=== PATIENT | male | born 1970 | race Caucasian/White ===

== ENCOUNTER 2019-09-10 11:31 | Observation (INO) | payer MEDICAID, SELFPAY ==
[2019-09-10 11:35] VITALS: BP 142/79; PULSE 88; RESP 16; TEMP 36.4; O2SAT 97
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
[2019-09-10 12:22] LABS: Abs Immature Grans 0.03 10^3/uL (0.0-0.06); Absolute Basophil Count 0.03 10^3/uL (0.0-0.2); Absolute Eosinophil Count 0.06 10^3/uL (0.0-0.7); Absolute Lymphocyte Count 1.26 10^3/uL (1.2-3.4); Absolute Neutrophil Count 8.49 10^3/uL (1.2-6.7); Basophils % 0.3; Eosinophils % 0.6; HCT 41.5 % (40.0-50.0); HGB 14.2 g/dL (13.5-17.5); Immature Grans % 0.3; MCH 33.2 pg (27.0-33.0); MCHC 34.2 % (32.0-36.0); MPV 9.1 fL (8.0-11.0); Monocytes % 5.7; Neutrophils % 81.1; Nucleated RBC 0 %; Platelet Count 223 10^3/uL (130-400); RBC 4.28 10^6/uL (4.36-5.78); RDW 12.1 % (11.8-14.1); RDW-SD 42.6 fL; WBC 10.47 10^3/uL (4.4-10.8)
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
[2019-09-10 12:53] LABS: ALT 59 U/L (16-63); AST 104 U/L (15-37); Albumin 3.9 g/dL (3.4-5.0); Alkaline Phosphatase 67 U/L (46-116); Anion Gap 10.8 mmol/L (3-11); BUN 15 mg/dL (7-18); Bilirubin, Total 0.9 mg/dL (0.2-1.0); CO2 26.2 mmol/L (21.0-32.0); CREATININE 0.78 mg/dL (0.70-1.30); Chloride 103 mmol/L (98-107); Glucose 105 mg/dL (74-106); Potassium 3.6 mmol/L (3.5-5.1); Sodium 140 mmol/L (136-145); TSH (W/Ref FT4) 1.74 uIU/mL (0.36-3.74); Total Protein 7.3 g/dL (6.4-8.2)
[2019-09-10 12:59] LABS: ETHANOL BLOOD < 3.0 mg/dL (<3)
[2019-09-10 13:01] LABS: Salicylate < 2.8 mg/dL (2.8-20.0)
[2019-09-10 13:19] LABS: Acetaminophen < 2 ug/mL (10-30)
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
[2019-09-10] MEDS: LORazepam 1 MG TAB PO ×2 (14:52→16:13)
[2019-09-10 15:28] VITALS: BP 129/86; PULSE 90; RESP 16; TEMP 37; O2SAT 96
[2019-09-10 15:39] VITALS: BP 129/86; PULSE 90; RESP 16; TEMP 37; O2SAT 96
--- NOTE | 2019-09-10 16:11 | PHA.REVIEW ---
Pharmacy Admission Review - Admission Clinical Review Paranoid (Acute) Psychosis (Acute) egg Allergy (Unknown, Unverified 09/10/19 11:39) VOMITING Height 5 ft 8 in Weight 108.862 kg - Renal Dosing Renal Dosing: BUN 15 mg/dL (7-18) 09/10/19 12:07 Creatinine 0.78 mg/dL (0.70-1.30) 09/10/19 12:07 Medications needing adjustments: Reviewed (CrCl ~138.6 mL/min using adjusted BW, current meds okay) - Anticoagulation Anticoagulation: Hgb 14.2 g/dL (13.5-17.5) 09/10/19 12:07 Hct 41.5 % (40.0-50.0) 09/10/19 12:07 Plt Count 223 10^3/uL (130-400) 09/10/19 12:07 Creatinine 0.78 mg/dL (0.70-1.30) 09/10/19 12:07 DVT Prohphylaxis: N/A Therapeutic Anticoagulation: N/A - Opiate Usage Evaluate Pain Scale/Pains Meds: N/A - Relevant Labs Sodium 140 mmol/L (136-145) 09/10/19 12:07 Potassium 3.6 mmol/L (3.5-5.1) 09/10/19 12:07 Chloride 103 mmol/L (98-107) 09/10/19 12:07 Electrolytes, C-Reactive P, ESR: Reviewed (AST 104) - DM Control DM Control: Glucose 105 mg/dL (74-106) 09/10/19 12:07 Insulin Dosing: N/A (No DM in medical history) - Heart Failure/KS EF%, RAMANDEEP's, B-Blockers, Diuretics: N/A - BP Control BP Control: Blood Pressure 129/86 Blood Pressure 129/86 Blood Pressure 142/79 If elevated: N/A (BP good, was elevated upon admission has normalized) - Qtc Review If Elevated: N/A (No EKG labs) - IV to PO Switch IV Medications: Reviewed - Home Meds Home Med List reviewed: Reviewed (No home meds listed in external med history, provider mentioned trying to get updated med list) Relevent Home Meds Not ordered & why?: Methylphenidate (no results on VPMS in last year, order was DC'd), ziprasidone (DC'd until verified that patient is still taking at home per MD) - Current meds Current Medication Order Review: Reviewed - Comments Comments/Follow Ups: Patient has been medically cleared and is awaiting a bed at an inpatient psychiatric care. Monitor AST and any med changes.
[2019-09-10] MEDS: Acetaminophen 325 MG TAB 650 MG PO (16:13)
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
[2019-09-10 21:41] VITALS: BP 135/77; PULSE 88; RESP 20; TEMP 36.5; O2SAT 96
[2019-09-10] MEDS: traZODone 50 MG TAB 150 MG PO (23:15)
[2019-09-11] MEDS: Acetaminophen 325 MG TAB 650 MG PO ×2 (05:19→09:22)
[2019-09-11 08:19] LABS: COVID-19 RT-PCR UVMMC Result Negative (Negative)
[2019-09-11 08:27] VITALS: BP 134/88; PULSE 86; RESP 20; TEMP 36.9; O2SAT 97
[2019-09-11] MEDS: LORazepam 1 MG TAB PO ×2 (11:05→13:04)
[2019-09-11] MEDS: Ketorolac 10 MG TAB PO (11:05)
--- NOTE | 2019-09-11 11:46 | MHPN_ITS ---
Date of service: 09/11/19 Time of Service: 11:46 Mental Health Crisis Note Presenting Issue How did you arrive at the ED and why did you come: [place] went to the hospital voluntarily via police. Precipitating Factors [place] denied SI and HI. He is presenting as having some delusions and paranoia focusing on the [employer] gang and having a one hundred thousand dollar debt to have him killed. Disposition BEHAVIOR: [place] is not cooperating with the necessary medical clearance needed by not giving a sample of his urine. He is loud and very open about what he believes to be going on and is adamant that he is not at [facility] for mental health reasons. He is not seeking a voluntary admission for psychiatric help My mental health is fine. He does seem to be drug seeking as he is asking for medications that he feels he needs but is not going to get at the hospital. EYE CONTACT: Eye contact is good. MOOD: Montana's mood appears suspicious and anxious. AFFECT: Sauls affect appeared worried and anxious. APPETITE: [place] reported that he is eating normally. SLEEP(trouble falling/staying asleep: [place] reported no issues with sleep. Plan This clinician called his [employer] with [place]'s verbal permission. Spoke with O by the name of Jose Enrique Gleason and explained the situation and that he does not meet criteria for an EE. Jose Enrique had been trying ot connect with [place] without success so asked to be connected to him. I gave Jose Enrique 2 different transitional care liaison's numbers that he could connect with at [facility] and gave [facility] Shear Operator Automatic, Payal Ponce a heads up. Payal called later said [place] was being discharged.
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
--- NOTE | 2019-09-11 13:15 | CMDISCH_ITS ---
- If Service Date Differs Date of service: 09/11/19 Time of Service: 13:15 LACE Index Scoring Tool - Questions: Length of Stay (in days): 1 Acuity (Admit via E.D.?): Yes Care Management Discharge Discharge Plan: [place] is discharged back to the [facility] where he has been staying. He will follow up with his PCP and plan of care as directed. [place] is transported to the [facility] via RCT coordinated by CM. Patient/Family Education Needs: Nursing will review discharge instructions with [place] re medications and follow up plan. Services Needed at Discharge: Transportation (RCT)
== END 2019-09-11 13:26 | disposition home or self-care (01) ==
LOC: ER 15:08 → MS 15:35
PROVIDERS: Admitting Provider Family Medicine; Emergency Provider Emergency Medicine; PCP Family Medicine; Visit Provider Family Medicine
DX: F22 Delusional disorders (principal); F29 Unspecified psychosis not due to a substance or known physiological condition; Z11.59 Encounter for screening for other viral diseases; F17.210 Nicotine dependence, cigarettes, uncomplicated
CPT/HCPCS: 36415; 80053; 99217; 99222; 99285; U0003; 80320; 80329; 84443; 85025; 99219; 99284; G0378

== ENCOUNTER 2019-09-12 22:12 | Emergency (ER) | payer MEDICAID, SELFPAY ==
[2019-09-12 22:17] VITALS: BP 137/89; PULSE 97; RESP 20; TEMP 35.4; O2SAT 98
--- NOTE | 2019-09-12 22:33 | W.ED.GENAD ---
Discharge Plan Disposition Patient Disposition: HOME Condition: Stable Discharge Details Chief Complaint: PsychEval Clinical Impression: Paranoid Primary Care Provider: Soco Dickinson ED Provider: Brian Diehl Home Meds and New Rx's Prescriptions: Continued ALBUTEROL SULFATE HFA 8.5 GM HFA.AER.AD 2 puff Inhalation QID Qty: 3 RF: 4 methylphenidate HCl 20 MG tablet 40 mg PO BID RF: 0 (DME) Aerochamber Plus Flow-Vu,S Msk 1 EACH spacer 1 ea Miscellaneous QID RF: 0 ziprasidone HCl [Geodon] 40 mg Capsule 40 mg PO HS RF: 0 trazodone 150 mg Tablet 150 mg PO HS RF: 0 Discharge Instructions Additional Instructions: follow up with [facility] if you have thoughts of self harm or harming others contact [facility] or return to the emergency department Medical Decision Making 49 yo male with unclear psychiatric diagnosis comes in with continued thoughts that people are out to harm him. He was admitted to [facility] as voluntary psych for these reasons and then decided the next day he did not want to go to a psychiatric facility, had no si/hi and no indications for EE so left. He comes in tonight with continued thoughts that people are trying to harm him and thought people were outside his dwelling with guns. He arrives with [employer] with stable gait, no deficits on motor or sensation exam and clear speech caox4 no SI/HI. Had normal lab work just 2 days ago and normal exam other than the paranoia here, is medically cleared to see mental health, no findings on exam or history to suggest underlying medical process such as infectious or endocrine pathology as the cause of his symptoms pt declining to go to psychiatric facility after speaking with Tabitha Mejias from mental health and doesn't meet criteria to be EE'd no SI/HI. Will d/c and will f/u with mental health Differential Diagnosis Differential Diagnosis: schizophrenia, paranoid HPI General Mode of arrival: ambulatory. Date/Time Provider Initiated Documentation: 09/12/19 22:18. Limitations to Documentation: no limitations. Information obtained by: patient. History of Present Illness 49 year old M presents to the emergency department with the chief complaint of people are out to get me , described as moderate, and it has been constant. No relieving factors improve symptom(s), No exacerbating factors reported . Patient did receive the following treatments prior to arrival, none Related Data Home Medications Medication Instructions Recorded Confirmed Aerochamber Plus Flow-Vu,S Msk 09/12/12 Albuterol Sulfate Hfa 2 puff INHALATION QID #3 ea 09/12/12 09/10/19 methylphenidate HCl 40 mg PO BID 09/12/12 09/10/19 trazodone 150 mg PO HS 09/10/19 09/10/19 ziprasidone HCl [Geodon] 40 mg PO HS 09/10/19 09/10/19 Allergies Allergy/AdvReac Type Severity Reaction Status Date / Time egg Allergy Unknown VOMITING Unverified 09/10/19 11:39 General Stated Complaint: PsychEval CHUYITA: 2 Review of Systems All systems reviewed & are unremarkable except as noted in HPI and below Constitutional Constitutional: Denies chills, Denies fever(s) and Denies weakness Cardiovascular Cardiovascular: Denies chest pain and Denies dyspnea Respiratory Respiratory: Denies cough and Denies dyspnea Gastrointestinal Gastrointestinal: Denies abdominal pain, Denies nausea and Denies vomiting Musculoskeletal Musculoskeletal: Denies joint swelling Neurologic Neurologic: Denies weakness Psychiatric Psychiatric: Denies depression PFS Medical History Abscess of left hand (Resolved) Hepatitis C (Chronic) IV drug abuse (Chronic) Social History Smoking/Tobacco Use Status: Current every day Tobacco Type: cigarettes Alcohol Intake: never Substance use type: does not use Do you feel safe at home: No Exam Const General: no acute distress Orientation: alert HENMT Head: normal to inspection Ears: external ears normal General nose exam: external nose normal Mouth: moist mucous membranes Eyes General: appearance normal, both eyes and all related structures Neck Neck: normal visual inspection Resp Effort & Inspection: normal respiratory effort and able to speak in complete sentences Cardio Rate: regular rate Skin General skin exam: no rashes or lesions noted Neuro General: patient alert and patient oriented x3 Extrem General: normal to inspection Psych Affect: normal affect Course Vital Signs Vital signs: Vital Signs Temperature 35.4 C L 09/12/19 22:17 Pulse 97 H 09/12/19 22:17 Respiratory Rate 20 09/12/19 22:17 Blood Pressure 137/89 09/12/19 22:17 Pulse Oximetry 98 09/12/19 22:17 Temperature 35.4 C L 09/12/19 22:17 Temperature Source Temporal Artery Scan 09/12/19 22:17 Pulse 97 H 09/12/19 22:17 Respiratory Rate 20 09/12/19 22:17 Respiratory Effort 09/12/19 22:19 Blood Pressure 137/89 09/12/19 22:17 Pulse Oximetry 98 09/12/19 22:17 Oxygen Delivery Method Room Air 09/12/19 22:17 Oxygen Flow Rate 0 09/12/19 22:17
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
== END 2019-09-12 22:55 | disposition home or self-care (01) ==
PROVIDERS: Emergency Provider Emergency Medicine; PCP Nurse Practitioner
DX: F22 Delusional disorders (principal)
CPT/HCPCS: 99285; 99283

== ENCOUNTER 2019-09-14 04:30 | Inpatient (IN) | payer MEDICAID, SELFPAY ==
[2019-09-14 04:28] VITALS: BP 155/108; PULSE 82; RESP 16; TEMP 36.5; O2SAT 98
--- NOTE | 2019-09-14 04:30 | RT.EKG_ITS ---
APPROVED REPORT Exam: Resting ECG Patient Location: E HR:77 bpm ECG Measurements Heart Rate 77 AXIS NM 163 P 49 QRSd 93 QRS 92 QT 382 T 24 QTc 433 Conclusion Sinus rhythm...normal P axis, V-rate 60- 99
--- NOTE | 2019-09-14 04:34 | W.ED.GENAD ---
Discharge Plan Disposition Patient Disposition: OTHER Condition: Stable Discharge Details Chief Complaint: PsychEval Clinical Impression: Paranoid Primary Care Provider: Soco Dickinson ED Provider: Yasmany Pemberton Home Meds and New Rx's Prescriptions: No Action ALBUTEROL SULFATE HFA 8.5 GM HFA.AER.AD 2 puff Inhalation QID Qty: 3 RF: 4 methylphenidate HCl 20 MG tablet 40 mg PO BID RF: 0 (DME) Aerochamber Plus Flow-Vu,S Msk 1 EACH spacer 1 ea Miscellaneous QID RF: 0 ziprasidone HCl [Geodon] 40 mg Capsule 40 mg PO HS RF: 0 trazodone 150 mg Tablet 150 mg PO HS RF: 0 bupropion HCl [Wellbutrin XL] 300 mg Tablet Extended Release 24 Hr 300 mg PO QAM RF: 0 Medical Decision Making <Brian Diehl MD - Last Filed: 09/14/19 07:22> 49 yo male with unknown psychiatric diagnosis though has been on geodon and methylphenidate, [facility], comes in with ems after he woke up in a field in [place] and is unsure how he got there. He states he is messed up in the head and would like to go to a psychiatric facility. HAs been seen twice in the ED in the past week with thoughts that people are trying to kill him despite police confirming no people have been found in the places he said they have been, one time stating the people were right outside his house even though they weren't. He left before being placed as he decided he didn't want to go to a psych facility and had no si/hi and otherwise normal mental exam so could not EE him. He has no idea how he got in the field in [place], lives in [facility]. Denies alcohol or drug use. He is currently caox4 with normal gait, no focal motor or sensation deficits on exam and clear speech with no si/hi, still does think there are people trying to kill him and he has a bounty on his head. I suspect this is psychiatric driven, will consult with mental health. Has no signs of trauma and no pain anywhere so do not feel imaging indicated. No findings on history or exam to suggest underlying medical process such as endocrine or infectious etiology for his symptoms pt remains stable, sleeping here with no agitation. will be signed out pending responses from psych facilities Differential Diagnosis Differential Diagnosis: schizophrenia, drug use, psychosis Medical Records Medical records reviewed: Yes I reviewed the patient's medical records. Lab Data Lab results reviewed: Yes I reviewed the patient's lab results. ECG Data Attestation: I personally reviewed and interpreted this ECG (s) as follows: Prior ECG tracings: not available for review Interpretation: sinus rhythm, rate of 77m or 163, qtc [address] t wave ischemic findings <BECKIE Johnson - Last Filed: 09/14/19 13:09> This is a 49-year-old gentleman who presented early this morning for evaluation. Apparently he has been in our ER 3 times in 1 week. Initially she was requesting voluntary psychiatric placement however subsequently left because he did not want to wait for placement. He was seen again and did not meet EE commitment and was going to follow-up as an outpatient. Apparently woke up in a field very early this morning, had no recollection of how or why he was there, subsequently called EMS. He has been worked up medically by Dr. Diehl prior to my assuming care at shift change. Patient was given his routine medications and upon my shift starting patient was resting-sleeping comfortably. His laboratory values are unremarkable for obvious emergent process. Urinalysis has not been obtained thus far. COVID swab pending however he did have a COVID swab that was negative just 4 days ago during his recent admission. I was able to speak with our care management team as well as mental health team who plans on screening him in the next half an hour. Mental health evaluation was completed, please see their note. They are going to contact his tax revenue officer for additional information. In the meantime I was able to evaluate the patient. He is resting comfortably in room 5. He is awake, alert, oriented x3. Head normocephalic, moist mucous membranes, heart regular rate and rhythm, lungs clear to auscultation, abdomen soft, nontender. No gross neurological deficits. He denies any suicidal or homicidal ideations whatsoever. He is calm, cooperative. He does tell me that he does not want to stay in the hospital and does not want a voluntary psychiatric placement. I was able to speak with our care management team once again, his tax revenue officer was contacted, and they support his psychiatric admission. I will discuss the case with our hospitalist team for admission to our facility will a psychiatric placement is found. At this time he has still been unwilling to provide a urine sample. I spoke with Dr. Bañuelos who is agreeable to admission but given he woke up in a field, we do not know the reason, she would prefer that we obtain a CT of his head, a CPK, and have a urinalysis with a tox screen obtained. I have spoken with the patient and stressed the importance of patient providing a urine sample. CPK 499. Urinalysis is unremarkable. Urine tox positive for THC. Patient eating and drinking without difficulty. Noted ambulating steadily to the restroom multiple times. CT head read by virtual radiology as no acute intracranial findings. Now that the additional laboratory values and CT imaging have been completed, I discussed the case once again with Dr. Bañuelos to finalize admission. HPI <Brian Diehl MD - Last Filed: 09/14/19 07:22> General Mode of arrival: EMS. Date/Time Provider Initiated Documentation: 09/14/19 04:31. Information obtained by: patient. History of Present Illness 49 year old M presents to the emergency department with the chief complaint of woke up in a field unsure how he got there, and it has been constant. No relieving factors improve symptom(s), No exacerbating factors reported . Patient did receive the following treatments prior to arrival, none Related Data Home Medications Medication Instructions Recorded Confirmed Aerochamber Plus Flow-Vu,S Msk 09/12/12 09/14/19 Albuterol Sulfate Hfa 2 puff INHALATION QID #3 ea 09/12/12 09/14/19 methylphenidate HCl 40 mg PO BID 09/12/12 09/14/19 trazodone 150 mg PO HS 09/10/19 09/14/19 ziprasidone HCl [Geodon] 40 mg PO HS 09/10/19 09/14/19 bupropion HCl [Wellbutrin XL] 300 mg PO QAM 09/14/19 09/14/19 Allergies Allergy/AdvReac Type Severity Reaction Status Date / Time egg Allergy Unknown VOMITING Unverified 09/13/19 15:06 General CHUYITA: 2 Review of Systems <Brian Diehl MD - Last Filed: 09/14/19 07:22> All systems reviewed & are unremarkable except as noted in HPI and below Constitutional Constitutional: Denies chills, Denies fever(s) and Denies weakness Cardiovascular Cardiovascular: Denies chest pain and Denies dyspnea Respiratory Respiratory: Denies cough and Denies dyspnea Gastrointestinal Gastrointestinal: Denies abdominal pain, Denies nausea and Denies vomiting Musculoskeletal Musculoskeletal: Denies joint swelling Neurologic Neurologic: Denies weakness Psychiatric Psychiatric: Denies depression PFSH <Brian Diehl MD - Last Filed: 09/14/19 07:22> Medical History (Updated 09/14/19 @ 07:22 by Brian Diehl MD) Abscess of left hand (Resolved) Anxiety (Chronic) Bipolar disorder (Acute) Depression (Chronic) Hepatitis C (Chronic) IV drug abuse (Chronic) Schizo-affective psychosis (Acute) Social History Smoking/Tobacco Use Status: Current every day Tobacco Type: cigarettes Alcohol Intake: never Substance use type: does not use Do you feel safe at home: No Exam <Brian Diehl MD - Last Filed: 09/14/19 07:22> Const General: no acute distress Orientation: alert HENMT Head: normal to inspection Ears: external ears normal General nose exam: external nose normal Mouth: moist mucous membranes Eyes General: appearance normal, both eyes and all related structures Neck Neck: normal visual inspection Resp Effort & Inspection: normal respiratory effort and able to speak in complete sentences Cardio Rate: regular rate Skin General skin exam: no rashes or lesions noted Neuro General: patient alert and patient oriented x3 Extrem General: normal to inspection Sign Out <Brian Diehl MD - Last Filed: 09/14/19 07:22> Sign Out Data: Sign Out Comment: psychiatric placement, voluntary, paranoid Last updated by Brian Diehl MD at 09/14/19 07:21
[2019-09-14 04:56] LABS: Abs Immature Grans 0.04 10^3/uL (0.0-0.06); Absolute Basophil Count 0.03 10^3/uL (0.0-0.2); Absolute Eosinophil Count 0.28 10^3/uL (0.0-0.7); Absolute Lymphocyte Count 1.45 10^3/uL (1.2-3.4); Absolute Monocyte Count 0.58 10^3/uL (0.1-0.8); Basophils % 0.3; Eosinophils % 2.6; HCT 46.7 % (40.0-50.0); HGB 15.4 g/dL (13.5-17.5); Immature Grans % 0.4; Lymphocytes % 13.4; MCH 33.1 pg (27.0-33.0); MCV 100.4 fL (80-95); MPV 8.9 fL (8.0-11.0); Monocytes % 5.4; Neutrophils % 77.9; Nucleated RBC 0 %; Platelet Count 211 10^3/uL (130-400); RBC 4.65 10^6/uL (4.36-5.78); RDW 12.2 % (11.8-14.1); RDW-SD 44.8 fL; WBC 10.82 10^3/uL (4.4-10.8)
[2019-09-14 04:57] LABS: Absolute Neutrophil Count 8.43 10^3/uL (1.2-6.7)
[2019-09-14 05:18] LABS: ALT 51 U/L (16-63); AST 45 U/L (15-37); Albumin 3.7 g/dL (3.4-5.0); Alkaline Phosphatase 70 U/L (46-116); Anion Gap 7.1 mmol/L (3-11); BUN 14 mg/dL (7-18); Bilirubin, Total 0.6 mg/dL (0.2-1.0); CO2 29.9 mmol/L (21.0-32.0); CREATININE 0.84 mg/dL (0.70-1.30); Calcium 9.1 mg/dL (8.5-10.1); Chloride 102 mmol/L (98-107); Glucose 94 mg/dL (74-106); Potassium 4.2 mmol/L (3.5-5.1); Sodium 139 mmol/L (136-145); TSH (W/Ref FT4) 1.76 uIU/mL (0.36-3.74); Total Protein 7.4 g/dL (6.4-8.2)
[2019-09-14 05:23] LABS: Salicylate 3.4 mg/dL (2.8-20.0)
[2019-09-14 05:32] LABS: ETHANOL BLOOD < 3.0 mg/dL (<3)
--- NOTE | 2019-09-14 05:32 | PDOC.MHCN_ITS ---
Date of service: 09/14/19 Time of Service: 05:33 Mental Health Crisis Note Presenting Issue How did you arrive at the ED and why did you come: Client arrives at [facility] ED via ambulance. Client states that he woke up in a field on the side of the road and does not know how he got there. When he woke up client stated that he found a phone in his pocket so he called for an ambulance. Client states that he does not remember anything from the night only where he was this afternoon. Client denies injury. Precipitating Factors Client denies SI and HI. Disposition BEHAVIOR: When mental health clinician enters the room via zoom client is dressed in hospital paper clothe attire. Client is sitting on the bed eating. Client engaged with mental health clinician during the assessment. When mental health clinician enters the room he states that he is ready for voluntary placement at a psych hospital stating that his head is messed up. When mental health clinician asked what messed up meant client states that he has had mental health problems his whole life, but denies previous hospitalizations for mental health. EYE CONTACT: Client makes relatively good eye contact with mental health clinician, only looking around the room sometimes. MOOD: Client appears to be depressed, stating that within this past week that he has been really depressed. AFFECT: Flat affect APPETITE: Client states that he has been eating ok, eating one meal a night. SLEEP(trouble falling/staying asleep: Client states that he has not been sleeping good at all, only getting about an hour or two of sleep a night. Plan Client will remain at [facility] pending voluntary admission to a psych hospital. Referral paperwork will be faxed. Signature Clinician's Name/Title: Angelica lBair [facility] Emergency mental health clinician.
[2019-09-14 05:42] LABS: Acetaminophen < 2 ug/mL (10-30)
--- NOTE | 2019-09-14 08:40 | CMSP_ITS ---
- If Service Date Differs Date of service: 09/14/19 Time of Service: 06:00 Care Management Safety Plan Chief Complaint: CM paged [phone], returned call, transferred to provider who stated patient was staying as now stating he was ready. No additional information offered. Per chart review, patient is voluntary for admission due to feeling his head is messed up. Reportedly awoke on the side of the road with no memory of how he arrived there and called EMS. Recently released from [employer] detention after seven year sentence. History of substance use disorder, schizo- affective psychosis, depression, bipolar disorder, anxiety, IV drug use, Hepatitis C. No mention of SI/HI. His Federal Boatswain Mate is reportedly Jose Enrique Carter: P#[phone]; CM left VM for Jose Enrique. Anticipate [place] will move upstair to Med/Surg while awaiting disposition. He is advocating for a shower, and to rest and watch television. He was appreciative of being provided coffee and breakfast and shared concerns about waking up on the side of the road with no recollection of events prior to yesterday af ternoon. He reported being in contact with his 26 year old son who resides in sober living in [place] and his twenty-five year old daughter whom he just met for the first time. He reports being released from federal detention after eight years of being moved throughout the country from detention to detention; CM validated that the transition home could be a significant adjustment. [place] reports he does not feel strongly connected to his family in the area currently. He has his cell phone and states he keeps in good contact with his PO officer. He was appropriate in interaction, calm and stoic with low affect. VOLUNTARY FOR INPATIENT PSYCHIATRIC STABILIZATION. Patient is appropriate in all interactions since arriving at [facility]; he continues to be closely observed at this time. [place] will remain at [facility] while [facility] continues to seek a voluntary placement. SAFETY PLAN: 1. Will remain on suicide precautions and in paper clothes. 2. Will remain in room under direct supervision of one-on-one staff at all times provided by [employer]; VARSHA, SPECIAL NEEDS CHILD CAREGIVER conveyor tender concrete mixing plant. 3. May have paper cups, plates, finger foods as well as a cardboard spoon with which to eat meals. 4. Follow [facility] Management of the Admitted Behavioral Health Patient policy. 5. Shower permitted with escort at RN discretion. 6. Personal belongings: Permitted to retain possession of cell phone. 7. Visitors-No visitors at this time 8. Activities: None currently. If moved to Med/Surg, will be allowed television in room at nursing discretion. 9. Bathroom privileges: While in the ED, must be accompanied by staff. If patient is moved to Med/Surg, he will be allowed to use the bathroom in his room without supervision. 10. Phone: Patient allowed to retain possession of his cell phone.. 11. Due to VOLUNTARY status, if patient wishes to leave [facility], he should be permitted to do so. He is not presenting with SI/HI and has the right to leave of his own volition. Patient is currently voluntarily at [facility] and seeking inpatient admission when a bed becomes available. [facility] Frontline Binding Printer will continue seeking placement. Please contact the Culled Fruit Packer Methods Time Analyst ([phone]) and [facility] Binding Printer ([phone]) for any needed changes in the Safety Plan. Safety plan has been provided to interdepartmental care team.
--- NOTE | 2019-09-14 10:04 | PDOC.MHCN_ITS ---
Date of service: 09/14/19 Time of Service: 10:04 Mental Health Crisis Note Presenting Issue How did you arrive at the ED and why did you come: Client arrived at [facility] ED this morning via ambulance upon waking up in a field beside the road and not knowing how he got there. Client states that he found a cell phone in his pocket and called 911. Client stated that he did not know how he had gotten in that field, not remembering what had happened that night. Precipitating Factors Client denies SI and HI. Disposition BEHAVIOR: Client had just woken up when mental health clinician arrived via zoom. Client was sitting up on the bed drinking a cup of coffee. Client was cooperative with mental health clinician answering all of the questions. When mental health clinician asked client on a scale of 0-10 0 being that he would be safe if he was to leave the hospital and 10 being that he would not be safe he rated himself a 10. Client stated that he feels like other people are going to harm him. When asked who these people were he could not say who they were. EYE CONTACT: Clients eye contact was distorted making minimal eye contact with mental health clinician during assessment. MOOD: Client stated that they were feeling ok, however he appeared to be depressed. AFFECT: Flat affect. APPETITE: Client was able to eat when he arrived at ED this morning, he had not eaten breakfast yet as he had just woken up. SLEEP(trouble falling/staying asleep: Client states that he was able to get some sleep after speaking to mental health clinician this morning. Plan Client will remain at [facility] pending voluntary placement. Referral paperwork sent to [facility] and will be sent to [facility] Signature Clinician's Name/Title: Angelica Blair [facility] Emergency mental health clinician.
[2019-09-14 11:38] VITALS: BP 125/87; PULSE 81; RESP 18; TEMP 36.5; O2SAT 96
--- NOTE | 2019-09-14 11:45 | DI.CT_ITS ---
EXAM: CT HEAD WO CLINICAL HISTORY: ams. TECHNIQUE: Imaging Protocol: Axial computed tomography images with coronal and sagittal reformatted images were created and reviewed COMPARISON: No exams were available for comparison FINDINGS: Ventricles and Extra axial spaces: Normal in size and morphology for the patient's age. Hemorrhage: None. Cerebral parenchyma: Normal. Midline shift: None. Brainstem/Cerebellum: Normal. Calvarium: Normal. Visualized Paranasal sinuses/Mastoids: Mild mucosal thickening in the frontal sinuses ethmoid air ambrosio ls and maxillary sinuses bilaterally. The mastoid air cells are well pneumatized. Soft Tissues: Unremarkable. IMPRESSION: 1. No acute intracranial process. 2. Mild paranasal sinus disease RADIATION DOSE DELIVERED: 764.12mGy.cm Total DLP DATA REPOSITORY: All CT scans at this facility are submitted to the National Radiology Data Registry (NRDR) Dose Index Registry (DIR) with the [employer] (ACR). RADIATION OPTIMIZATION: All CT scans at this facility use at least one of these dose optimization te chniques: automated exposure control; mA and/or kV adjustment per patient size (includes targeted exa ms where dose is matched to clinical indication); or iterative reconstruction.
[2019-09-14 12:13] LABS: Bilirubin Negative (Negative); Blood Negative (Negative); Clarity Clear (Clear); Glucose Negative (Negative); Ketones Negative (Negative); Leukocyte Esterase Negative (Negative); Nitrite Negative (Negative); Specific Gravity 1.025 (1.005-1.025); Urobilinogen 0.2 EU/dL (Up TO 0.2)
[2019-09-14 12:18] LABS: Creatine Kinase 499 U/L (39-308)
[2019-09-14 12:25] LABS: *AMPHETAMINES SCREEN URINE Negative (Negative); *BARBITURATES SCREEN URINE Negative (Negative); *BENZODIAZEPINES SCREEN URINE Negative (Negative); Cannabinoids THC POSITIVE (Negative); Cocaine Screen,Urine Negative (Negative); METHADONE URINE SCREEN Negative (Negative); OPIATES URINE SCREEN Negative (Negative); Tricyclic Antidepressants Negative (Negative)
--- NOTE | 2019-09-14 13:00 | DI.VRAD_ITS ---
PROCEDURE INFORMATION: Exam: CT Head Without Contrast Exam date and time: 09/14/2019 11:48 AM Age: 49 years old Clinical indication: Altered mental status/memory loss TECHNIQUE: Imaging protocol: Computed tomography of the head without contrast. COMPARISON: No relevant prior studies available. FINDINGS: Brain: Normal. No hemorrhage. Unremarkable white matter. No mass effect. Ventricles: Normal. No ventriculomegaly. Bones/joints: Unremarkable. No acute fracture. Sinuses: Diffuse paranasal sinus mucosal thickening with the exception of the sphenoid sinus. No air-fluid levels. Mastoid air cells: Visualized mastoid air cells are well aerated. Soft tissues: Unremarkable. IMPRESSION: 1. No acute intracranial findings. 2. Paranasal sinus disease. Dictated and Authenticated by: Jose Enrique Dorsey MD. Ordering:GRISELDA Jade MD
--- NOTE | 2019-09-14 14:10 | NUR.NOTE ---
Nursing Note: PT care report transferred to Samara (RN). At the time of transfer the Pt is alert and oriented, vitals stable.
[2019-09-14 14:22] VITALS: BP 122/78; PULSE 88; RESP 18; TEMP 36.8; O2SAT 96
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
[2019-09-14 23:11] VITALS: BP 136/81; PULSE 81; RESP 17; TEMP 37.3; O2SAT 97
[2019-09-15 06:50] VITALS: BP 119/79; PULSE 68; RESP 17; TEMP 36.9; O2SAT 98
[2019-09-15 07:47] LABS: Abs Immature Grans 0.04 10^3/uL (0.0-0.06); Absolute Basophil Count 0.02 10^3/uL (0.0-0.2); Absolute Eosinophil Count 0.38 10^3/uL (0.0-0.7); Absolute Lymphocyte Count 1.84 10^3/uL (1.2-3.4); Absolute Monocyte Count 0.61 10^3/uL (0.1-0.8); Absolute Neutrophil Count 4.76 10^3/uL (1.2-6.7); Basophils % 0.3; HCT 47.5 % (40.0-50.0); HGB 15.6 g/dL (13.5-17.5); Immature Grans % 0.5; Lymphocytes % 24.1; MCH 33.2 pg (27.0-33.0); MCHC 32.8 % (32.0-36.0); MCV 101.1 fL (80-95); MPV 9.3 fL (8.0-11.0); Neutrophils % 62.1; Nucleated RBC 0 %; Platelet Count 184 10^3/uL (130-400); RDW-SD 45.1 fL; WBC 7.65 10^3/uL (4.4-10.8)
[2019-09-15 08:11] LABS: ALT 42 U/L (16-63); AST 27 U/L (15-37); Albumin 3.4 g/dL (3.4-5.0); Alkaline Phosphatase 64 U/L (46-116); Anion Gap 6.4 mmol/L (3-11); BUN 17 mg/dL (7-18); Bilirubin, Direct 0.05 mg/dL (0.00-0.20); Bilirubin, Total 0.2 mg/dL (0.2-1.0); CO2 28.6 mmol/L (21.0-32.0); CREATININE 0.81 mg/dL (0.70-1.30); Calcium 8.9 mg/dL (8.5-10.1); Chloride 104 mmol/L (98-107); Glucose 91 mg/dL (74-106); Magnesium 2.3 mg/dL (1.8-2.4); Potassium 4.2 mmol/L (3.5-5.1); Sodium 139 mmol/L (136-145); Total Protein 6.9 g/dL (6.4-8.2)
--- NOTE | 2019-09-15 08:28 | PDOC.CMSAFE ---
- If Service Date Differs Date of service: 09/14/19 Time of Service: 07:00 Care Management Safety Plan Chief Complaint: CM paged [phone], returned call, transferred to provider who stated patient was staying as now stating he was ready. No additional information offered. Per chart review, patient is voluntary for admission due to feeling his head is messed up. Reportedly awoke on the side of the road with no memory of how he arrived there and called EMS. Recently released from [employer] longterm after seven year sentence. History of substance use disorder, schizo-affective psychosis, depression, bipolar disorder, anxiety, prior IV drug use. No mention of SI/HI. His Federal Drafter Tool Design is Jose Enrique Carter: Shweta#[phone]; CM spoke with Jose Enrique who is supportive of [place] seeking placement at this time. Jose Enrique agreed to collect any pertinent clinical information for [place] and forward to this promotion writer, hopefully by Monday. Anticipate [place] will move upstair to Med/Surg while awaiting disposition. He is advocating for a shower, and to rest and watch television. He was appreciative of being provided coffee and breakfast and shared concerns about waking up on the side of the road with no recollection of events prior to yesterday afternoon. He reported being in contact with his 26 year old son who resides in sober living in [place] and his twenty-five year old daughter whom he just met for the first time. He reports being released from federal longterm after eight years of being moved throughout the country from longterm to longterm; CM validated that the transition home could be a significant adjustment. [place] reports he does not feel strongly connected to his family in the area currently. He has his cell phone and states he keeps in good contact with his PO officer. He was appropriate in interaction, calm and stoic with low affect. VOLUNTARY FOR INPATIENT PSYCHIATRIC STABILIZATION. Patient is appropriate in all interactions since arriving at [facility]; he continues to be closely observed at this time. [place] will remain at [facility] while [facility] continues to seek a voluntary placement. SAFETY PLAN: 1. Will remain on suicide precautions and in paper clothes. 2. Will remain in room under direct supervision of one-on-one staff at all times provided by [employer]; VARSHA, YANIQUE coding advisor. 3. May have paper cups, plates, finger foods as well as a cardboard spoon with which to eat meals. 4. Follow [facility] Management of the Admitted Behavioral Health Patient policy. 5. Shower permitted with escort at RN discretion. 6. Personal belongings: Permitted to retain possession of cell phone. 7. Visitors-No visitors at this time 8. Activities: None currently. If moved to [facility]/Surg, will be allowed television in room at nursing discretion. 9. Bathroom privileges: While in the ED, must be accompanied by staff. If patient is moved to Med/Surg, he will be allowed to use the bathroom in his room without supervision. 10. Phone: Patient allowed to retain possession of his cell phone.. 11. Due to VOLUNTARY status, if patient wishes to leave [facility], he should be permitted to do so. He is not presenting with SI/HI and has the right to leave of his own volition. Patient is currently voluntarily at [facility] and seeking inpatient admission when a bed becomes available. [facility] Frontline Conservation Worker will continue seeking placement. Please contact the Cardiac Catheterization Technologist Before School Babysitter ([phone]) and [facility] Conservation Worker ([phone]) for any needed changes in the Safety Plan. Safety plan has been provided to interdepartmental care team.
[2019-09-15] MEDS: buPROPion-CR 100 MG TABCR 200 MG PO (09:13)
--- NOTE | 2019-09-15 09:38 | W.PM.PROGNOT ---
Date of Service Date of service: 09/15/19 Time of Service: 09:38 Assessment and Plan Assessment and plan (1) Amnestic state: Status: Acute Assessment and plan: No medical etiology such as a seizure or a syncopal event has been identified. Will monitor on tele. (2) Paranoid ideation: Status: Acute Assessment and plan: ?psychosis. For now, continue outpatient therapy. Mental health agrees that patient meets criteria for voluntary psychiatric hospitalization. Continue sitter. (3) Concussion: Status: Acute Assessment and plan: Appears to be stable from neurologic stand point. Will monitor mental status. (4) Schizo-affective psychosis: Status: Acute Assessment and plan: As above. Continue outpatient psychiatric medications with plans for psychiatric hospitalization. (5) Bipolar disorder: Status: Acute Assessment and plan: As above (6) DVT prophylaxis: Status: Acute Assessment and plan: lovenox sc/TEDs/SCDs (7) Discharge planning issues: Status: Acute Assessment and plan: Full code Disp: voluntary psychiatric hospitalization. COVID-19 ordered prior to placement. discussed with Dr Bañuelos who is in agreement Subjective Subjective Interval history since last seen: states he feels paranoid, that someone is going to come here to kill him, otherwise no c/o. eating and drinking, voiding well. no dysrhythmias on telemetry Exam Const General: cooperative, healthy appearing, comfortable and anxious Nutritional Appearance: average body habitus Orientation: alert and oriented x3 HENMT Head: normal to inspection, normocephalic and atraumatic Mouth: oral mucosae normal Resp Effort & Inspection: normal respiratory effort Auscultation: clear to auscultation bilaterally Cardio Rate: regular rate Rhythm: regular rhythm GI Inspection: normal to inspection Palpation: soft Auscultation: normal bowel sounds Skin General skin exam: no rashes or lesions noted Neuro General: patient alert, patient awake and patient oriented x3 Speech: speech normal Motor: muscle tone normal throughout Extrem General: normal to inspection and full ROM Psych Appearance: grossly normal Mental Status: mental status grossly normal Speech and Movement: speech and movement normal Mood: anxious mood and paranoid Affect: anxious affect Attitude: cooperative Thought Process: perseverating Thought Content: phobias Insight: poor Judgment: poor Objective Objective Clinical Data: Abnormal lab results 09/14/19 09/14/19 09/15/19 Range/Units 12:00 12:05 06:35 MCV 101.1 H (80-95) fL MCH 33.2 H (27.0-33.0) pg Creatine Kinase 499 H (39-308) U/L Ur THC Screen Positive A (Negative) Vital Signs Temperature 36.9 C 09/15/19 06:50 Temperature Source Skin 09/15/19 06:50 Pulse 68 09/15/19 06:50 Pulse Rhythm Regular 09/14/19 21:06 Pulse Strength Normal 09/14/19 11:38 Respiratory Rate 17 09/15/19 06:50 Respiratory Effort 09/14/19 21:06 Respiratory Depth Normal 09/14/19 21:06 Respiratory Pattern Normal 09/14/19 21:06 Blood Pressure 119/79 09/15/19 06:50 Blood Pressure Mean 99 09/14/19 11:38 Blood Pressure Position Sitting 09/14/19 11:38 Pulse Oximetry 98 09/15/19 06:50 Oxygen Delivery Method Room Air 09/15/19 06:50 Oxygen Flow Rate 0 09/15/19 06:50 Pain Level 0 09/15/19 06:50 Intake & Output 09/14/19 09/14/19 09/15/19 11:59 23:59 11:59 Intake Total 500 / 500 240 / 240 Balance 500 / 500 240 / 240 Weight 113.398 kg 113.398 kg 93.1 kg Intake: Oral 500 / 500 240 / 240 Other: Urine Appearance Clear Comment amount of urine unknown. pT indenpendent using bathroom. Voiding Methods Toilet Toilet Laboratory Results WBC 7.65 10^3/uL (4.4-10.8) 09/15/19 06:35 RBC 4.70 10^6/uL (4.36-5.78) 09/15/19 06:35 Hgb 15.6 g/dL (13.5-17.5) 09/15/19 06:35 Hct 47.5 % (40.0-50.0) 09/15/19 06:35 MCV 101.1 fL (80-95) H 09/15/19 06:35 MCH 33.2 pg (27.0-33.0) H 09/15/19 06:35 MCHC 32.8 % (32.0-36.0) 09/15/19 06:35 RDW 12.0 % (11.8-14.1) 09/15/19 06:35 Plt Count 184 10^3/uL (130-400) 09/15/19 06:35 MPV 9.3 fL (8.0-11.0) 09/15/19 06:35 Immature Gran % 0.5 09/15/19 06:35 Neutrophils % 62.1 09/15/19 06:35 Lymphocytes % 24.1 09/15/19 06:35 Monocytes % 8.0 09/15/19 06:35 Eosinophils % 5.0 09/15/19 06:35 Basophils % 0.3 09/15/19 06:35 Absolute Neutrophils 4.76 10^3/uL (1.2-6.7) 09/15/19 06:35 Absolute Lymphocytes 1.84 10^3/uL (1.2-3.4) 09/15/19 06:35 Absolute Monocytes 0.61 10^3/uL (0.1-0.8) 09/15/19 06:35 Absolute Eosinophils 0.38 10^3/uL (0.0-0.7) 09/15/19 06:35 Absolute Basophils 0.02 10^3/uL (0.0-0.2) 09/15/19 06:35 Sodium 139 mmol/L (136-145) 09/15/19 06:35 Potassium 4.2 mmol/L (3.5-5.1) 09/15/19 06:35 Chloride 104 mmol/L (98-107) 09/15/19 06:35 Carbon Dioxide 28.6 mmol/L (21.0-32.0) 09/15/19 06:35 Anion Gap 6.4 mmol/L (3-11) 09/15/19 06:35 BUN 17 mg/dL (7-18) 09/15/19 06:35 Creatinine 0.81 mg/dL (0.70-1.30) 09/15/19 06:35 Estimated GFR/1.73 m2 >= 60.00 (mL/min/1.73m2) 09/15/19 06:35 Glucose 91 mg/dL (74-106) 09/15/19 06:35 Calcium 8.9 mg/dL (8.5-10.1) 09/15/19 06:35 Magnesium 2.3 mg/dL (1.8-2.4) 09/15/19 06:35 Total Bilirubin 0.2 mg/dL (0.2-1.0) 09/15/19 06:35 Conjugated Bilirubin 0.05 mg/dL (0.00-0.20) 09/15/19 06:35 AST 27 U/L (15-37) 09/15/19 06:35 ALT 42 U/L (16-63) 09/15/19 06:35 Alkaline Phosphatase 64 U/L (46-116) 09/15/19 06:35 Creatine Kinase 499 U/L (39-308) H 09/14/19 12:00 Total Protein 6.9 g/dL (6.4-8.2) 09/15/19 06:35 Albumin 3.4 g/dL (3.4-5.0) 09/15/19 06:35 TSH 1.76 uIU/mL (0.36-3.74) 09/14/19 04:45 Urine Color Yellow (Yellow) 09/14/19 12:05 Urine Clarity Clear (Clear) 09/14/19 12:05 Urine pH 7.0 (5-8) 09/14/19 12:05 Ur Specific [place] 1.025 (1.005-1.025) 09/14/19 12:05 Urine Protein Negative mg/dL (Negative) 09/14/19 12:05 Urine Ketones Negative mg/dL (Negative) 09/14/19 12:05 Urine Blood Negative (Negative) 09/14/19 12:05 Urine Nitrite Negative (Negative) 09/14/19 12:05 Urine Bilirubin Negative (Negative) 09/14/19 12:05 Urine Urobilinogen 0.2 EU/dL (Up TO 0.2) 09/14/19 12:05 Ur Leukocyte Esterase Negative (Negative) 09/14/19 12:05 Urine Glucose Negative mg/dL (Negative) 09/14/19 12:05 Salicylates 3.4 mg/dL (2.8-20.0) 09/14/19 04:45 Urine Opiates Screen Negative (Negative) 09/14/19 12:05 Urine Methadone Screen Negative (Negative) 09/14/19 12:05 Acetaminophen < 2 ug/mL (10-30) 09/14/19 04:45 Ur Barbiturates Screen Negative (Negative) 09/14/19 12:05 Ur Tricyclics Screen Negative (Negative) 09/14/19 12:05 Ur Amphetamines Screen Negative (Negative) 09/14/19 12:05 U Benzodiazepines Scrn Negative (Negative) 09/14/19 12:05 Urine Cocaine Screen Negative (Negative) 09/14/19 12:05 Ur THC Screen Positive (Negative) A 09/14/19 12:05 Ethyl Alcohol < 3.0 mg/dL (<3) 09/14/19 04:45
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
--- NOTE | 2019-09-15 12:11 | PHA.REVIEW ---
Pharmacy Admission Review - Admission Clinical Review (Last Updated 09/14/19 @ 17:33 by Angi Bañuelos MD) Concussion (Acute) Discharge planning issues (Acute) DVT prophylaxis (Acute) Schizo-affective psychosis (Acute) Bipolar disorder (Acute) Amnestic state (Acute) Paranoid ideation (Acute) Paranoid (Acute) egg Allergy (Unknown, Unverified 09/13/19 15:06) VOMITING Height 5 ft 8.11 in Weight 93.1 kg - Renal Dosing Renal Dosing: BUN 17 mg/dL (7-18) 09/15/19 06:35 Creatinine 0.81 mg/dL (0.70-1.30) 09/15/19 06:35 Medications needing adjustments: Reviewed - Anticoagulation Anticoagulation: Hgb 15.6 g/dL (13.5-17.5) 09/15/19 06:35 Hct 47.5 % (40.0-50.0) 09/15/19 06:35 Plt Count 184 10^3/uL (130-400) 09/15/19 06:35 Creatinine 0.81 mg/dL (0.70-1.30) 09/15/19 06:35 DVT Prohphylaxis: N/A Therapeutic Anticoagulation: N/A - Opiate Usage Evaluate Pain Scale/Pains Meds: N/A - Relevant Labs Sodium 139 mmol/L (136-145) 09/15/19 06:35 Potassium 4.2 mmol/L (3.5-5.1) 09/15/19 06:35 Chloride 104 mmol/L (98-107) 09/15/19 06:35 Magnesium 2.3 mg/dL (1.8-2.4) 09/15/19 06:35 Electrolytes, C-Reactive P, ESR: Reviewed - DM Control DM Control: Glucose 91 mg/dL (74-106) 09/15/19 06:35 Insulin Dosing: N/A - Heart Failure/AR EF%, RAMANDEEP's, B-Blockers, Diuretics: N/A - BP Control BP Control: Blood Pressure 119/79 If elevated: Reviewed - Qtc Review If Elevated: N/A - IV to PO Switch IV Medications: N/A - Home Meds Home Med List reviewed: Reviewed Relevent Home Meds Not ordered & why?: Reported home meds cannot be confirmed. He was seen by Soco sandoval at [facility] on the who stated in her clinic note that they do not have any medical records from the [facility] in [place] but will try to obtain. It is not clear if she chose to bridge patient's reported meds until then or not. Will try to follow up with [facility] on Monday to see if they were able to obain any records so we can update pt's home med list accordingly. - Current meds Current Medication Order Review: Reviewed - Comments Comments/Follow Ups: Buproprion, trazodone, ziprasidone all ordered although it cannot be confirmed if these have actually been prescribed/if he's been taking them regularly.
[2019-09-15 12:25] VITALS: BP 129/84; PULSE 76; RESP 18; TEMP 37.1; O2SAT 97
--- NOTE | 2019-09-15 14:23 | PDOC.CMSAFE ---
- If Service Date Differs Date of service: 09/15/19 Time of Service: 14:37 Care Management Safety Plan Chief Complaint: Patient is voluntary for admission due to feeling his head is messed up. Reportedly awoke on the side of the road with no memory of how he arrived there and called EMS. Recently [facility] from [facility] seven year [facility]. History of substance use disorder, schizo-affective psychosis, depression, bipolar disorder, anxiety, prior IV drug use. No mention of SI/HI. His [employer] Electric Meter Technician is Jose Enrique Carter: P#[phone]; MARCIN spoke with Jose Enrique who is supportive of [place] seeking placement at this time. Jose Enrique agreed to collect any pertinent clinical information for [place] and forward to this telegraphic typewriter installer, hopefully by Monday. Montana had a shower, has been permitted to rest and watch television. He spoke in length about his time in [facility] and fearing for his safety everyday for the last eight years. CM continues to validate that the transition home could be a significant adjustment. [place] reports he does not feel strongly connected to his family in the area currently. He reports he was suddenly discharged due to COVID and had less than 24 hours notice. There was no discharge plan, service connection or stable housing provided upon release; he was provided a 15 day voucher at [facility]. He has his cell phone and states he keeps in good contact with his PO officer. [place] states that he is consistently worried for his safety and always believes that everyone is trying to harm him. He stated that he has thoughts of hurting others, even while working, because he fears they will try to hurt him first. He describes an intense level of hypervigilance in all interactions. He reports himself as high strung at baseline and reports his stimulants make him feel better; CM reviewed current practice of withholding stimulants during MH crisis; which [place] was receptive to. He shares hopes for being able to find stable housing in the [facility], where his son is currently residing, as he reports there's nothing here for me anymore. He expressed feeling anxious and requested medication; CM notified COLOR STRIPPER. He presented with low affect until he was discussing his time in half-way, at which time he became more animated; noted by moving his arms when he spoke and raising his voice. He made appropriate eye contact with this telegraphic typewriter installer throughout the discussion. [place] has been appropriate in all interactions and continues to verbalize his needs and concerns for current level of functioning. He remains voluntary as he reports he feels medication management could help him feel more secure and safe. CM reviewed coordination of basic needs with Angelica; FEROZ and [place]. [place] will require Economic Service attachment, has requested support in applying for disability due to MH dx, and will require housing coordination support as well as PCP, service connection for further medication management; this will depend on disposition post psychiatric stabilization. VOLUNTARY FOR INPATIENT PSYCHIATRIC STABILIZATION. Patient is appropriate in all interactions since arriving at [facility]; he continues to be closely observed at this time. [place] will remain at [facility] while [facility] continues to seek a voluntary placement. SAFETY PLAN: 1. Will remain on suicide precautions and in paper clothes. 2. Will remain in room under direct supervision of one-on-one staff at all times provided by [employer]; VARSHA, CONVEYOR MAINTENANCE MECHANIC door glass installer. 3. May have paper cups, plates, finger foods as well as a cardboard spoon with which to eat meals. 4. Follow [facility] Management of the Admitted Behavioral Health Patient policy. 5. Shower permitted with escort at RN discretion-permitted to shave with [employer] oversight and collection of razor. 6. Personal belongings: Permitted to retain possession of cell phone. 7. Visitors-No visitors at this time 8. Activities: None currently. If moved to [facility]/Surg, will be allowed television in room at nursing discretion. 9. Bathroom privileges: While in the ED, must be accompanied by staff. If patient is moved to Med/Surg, he will be allowed to use the bathroom in his room without supervision. 10. Phone: Patient allowed to retain possession of his cell phone. 11. Due to VOLUNTARY status, if patient wishes to leave [facility], he should be permitted to do so. He is not presenting with SI/HI and has the right to leave of his own volition. Patient is currently voluntarily at [facility] and seeking inpatient admission when a bed becomes available. [facility] Frontline Crosscutter Rolled Glass will continue seeking placement. Please contact the Import Customer Service Manager Electrical Cad Technician ([phone]) and [facility] Crosscutter Rolled Glass ([phone]) for any needed changes in the Safety Plan. Safety plan has been provided to interdepartmental care team.
[2019-09-15] MEDS: LORazepam 1 MG TAB 2 MG PO (16:32)
[2019-09-15 16:56] LABS: COVID-19 RT-PCR UVMMC Result Negative (Negative)
[2019-09-15] MEDS: diazePAM 5 MG TAB PO (18:15)
[2019-09-15 20:12] VITALS: BP 132/79; PULSE 82; RESP 18; TEMP 37; O2SAT 97
[2019-09-15] MEDS: Sodium Chloride-Nasal SPRAY-ADULT 44 ML BTL NS (20:17)
[2019-09-15] MEDS: Melatonin 3 MG TAB 9 MG PO (21:05)
[2019-09-15] MEDS: buPROPion-CR 100 MG TABCR PO (21:06)
[2019-09-15] MEDS: traZODone 50 MG TAB 150 MG PO (21:06)
[2019-09-16] MEDS: buPROPion-CR 100 MG TABCR 200 MG PO (08:44)
--- NOTE | 2019-09-16 12:01 | W.NUTRFU ---
Date of service: 09/16/19 Time of Service: 12:01 Nutritional Follow up NOTE: 49 year old male admitted with with amnestic state, with schizo affective psychosis. Following regular diet with adequate intake to meet estimated needs. Allergic to eggs. BMI indicates obesity. Not at risk for nutritional decline at this time. Time Spent in Nutritional Counseling and Treatment: 0 time spent face to face
--- NOTE | 2019-09-16 12:29 | MHPN_ITS ---
Date of service: 09/16/19 Time of Service: 12:29 Mental Health Crisis Note Presenting Issue How did you arrive at the ED and why did you come: [place] arrived to the ER this weekend how is unknown but likely via ambulance. He came after walking up in a field in [facility] no memories of how he got there. Precipitating Factors [place] denied SI and stated that he only wants to hurt people who he feels would hurt him. He said he would do this only to protect himself. He is still showing possible signs of paranoia and/or delusions as he feels still there is a bounty on him for him to be murdered. Disposition BEHAVIOR: [place] has not been a behavior issue at all since being at the hospital. He is still seeking a voluntary admission. EYE CONTACT: Montana makes good eye contact. MOOD: Montana presents as anxious. AFFECT: Montana's affect is flat. APPETITE: [place] reported he is eating okay. SLEEP(trouble falling/staying asleep: [place] reported that he slept okay last night as he was given a Valium for his anxiety. Plan [place] is seeking a voluntary admission. We will continue to screen until placement is found. Signature Clinician's Name/Title: Kimber Castle MS, [facility] Emergency Services Clinician
[2019-09-16] MEDS: LORazepam 1 MG TAB 2 MG PO (14:03)
--- NOTE | 2019-09-16 15:46 | W.PM.PROGNOT ---
Date of Service Date of service: 09/16/19 Time of Service: 15:47 Assessment and Plan Assessment and plan (1) Amnestic state: Status: Acute Assessment and plan: No medical etiology such as a seizure or a syncopal event has been identified. Will monitor on tele. (2) Paranoid ideation: Status: Acute Assessment and plan: ? psychosis. For now, continue outpatient therapy. Mental health agrees that patient meets criteria for voluntary psychiatric hospitalization. Continue sitter. (3) Concussion: Status: Acute Assessment and plan: Appears to be stable from neurologic stand point. Will monitor mental status. (4) Schizo-affective psychosis: Status: Acute Assessment and plan: As above. Continue outpatient psychiatric medications with plans for psychiatric hospitalization. (5) Bipolar disorder: Status: Acute Assessment and plan: As above (6) DVT prophylaxis: Status: Acute Assessment and plan: lovenox sc/TEDs/SCDs (7) Discharge planning issues: Status: Acute Assessment and plan: Full code Disp: voluntary psychiatric hospitalization. COVID-19 ordered prior to placement. discussed with Dr Bañuelos who is in agreement Subjective Subjective Interval history since last seen: feeling paranoid, otherwise no c/o. reports ativan no effective but valium was. eating and drinking well. medically stable Exam Const General: cooperative, healthy appearing, comfortable and anxious Nutritional Appearance: average body habitus Orientation: alert and oriented x3 [facility] Head: normal to inspection, normocephalic and atraumatic Mouth: oral mucosae normal Resp Effort & Inspection: normal respiratory effort Auscultation: clear to auscultation bilaterally Cardio Rate: regular rate Rhythm: regular rhythm GI Inspection: normal to inspection Palpation: soft Auscultation: normal bowel sounds Skin General skin exam: no rashes or lesions noted Neuro General: patient alert, patient awake and patient oriented x3 Speech: speech normal Motor: muscle tone normal throughout Extrem General: normal to inspection and full ROM Psych Appearance: grossly normal Mental Status: mental status grossly normal Speech and Movement: speech and movement normal Mood: anxious mood and paranoid Affect: anxious affect Attitude: cooperative Thought Process: perseverating Thought Content: phobias Insight: poor Judgment: poor Objective Objective Clinical Data: Vital Signs Temperature 37.0 C 09/15/19 20:12 Temperature Source Tympanic 09/15/19 20:12 Pulse 82 09/15/19 20:12 Pulse Rhythm Regular 09/16/19 08:40 Pulse Strength Normal 09/14/19 11:38 Respiratory Rate 18 09/15/19 20:12 Respiratory Effort Non-Labored 09/16/19 08:40 Respiratory Depth Normal 09/16/19 08:40 Respiratory Pattern Normal 09/16/19 08:40 Blood Pressure 132/79 09/15/19 20:12 Blood Pressure Mean 99 09/14/19 11:38 Blood Pressure Position Sitting 09/14/19 11:38 Pulse Oximetry 97 09/15/19 20:12 Oxygen Delivery Method Room Air 09/15/19 20:12 Oxygen Flow Rate 0 09/15/19 20:12 Pain Level 0 09/15/19 12:25 Intake & Output 09/15/19 09/16/19 09/16/19 23:59 11:59 23:59 Intake Total 720 / 960 480 / 720 240 / 720 Balance 720 / 960 480 / 720 240 / 720 Intake: Oral 720 / 960 480 / 720 240 / 720 Other: Urine Appearance Clear Clear Voiding Methods Toilet Laboratory Results WBC 7.65 10^3/uL (4.4-10.8) 09/15/19 06:35 RBC 4.70 10^6/uL (4.36-5.78) 09/15/19 06:35 Hgb 15.6 g/dL (13.5-17.5) 09/15/19 06:35 Hct 47.5 % (40.0-50.0) 09/15/19 06:35 MCV 101.1 fL (80-95) H 09/15/19 06:35 MCH 33.2 pg (27.0-33.0) H 09/15/19 06:35 MCHC 32.8 % (32.0-36.0) 09/15/19 06:35 RDW 12.0 % (11.8-14.1) 09/15/19 06:35 Plt Count 184 10^3/uL (130-400) 09/15/19 06:35 MPV 9.3 fL (8.0-11.0) 09/15/19 06:35 Immature Gran % 0.5 09/15/19 06:35 Neutrophils % 62.1 09/15/19 06:35 Lymphocytes % 24.1 09/15/19 06:35 Monocytes % 8.0 09/15/19 06:35 Eosinophils % 5.0 09/15/19 06:35 Basophils % 0.3 09/15/19 06:35 Absolute Neutrophils 4.76 10^3/uL (1.2-6.7) 09/15/19 06:35 Absolute Lymphocytes 1.84 10^3/uL (1.2-3.4) 09/15/19 06:35 Absolute Monocytes 0.61 10^3/uL (0.1-0.8) 09/15/19 06:35 Absolute Eosinophils 0.38 10^3/uL (0.0-0.7) 09/15/19 06:35 Absolute Basophils 0.02 10^3/uL (0.0-0.2) 09/15/19 06:35 Sodium 139 mmol/L (136-145) 09/15/19 06:35 Potassium 4.2 mmol/L (3.5-5.1) 09/15/19 06:35 Chloride 104 mmol/L (98-107) 09/15/19 06:35 Carbon Dioxide 28.6 mmol/L (21.0-32.0) 09/15/19 06:35 Anion Gap 6.4 mmol/L (3-11) 09/15/19 06:35 BUN 17 mg/dL (7-18) 09/15/19 06:35 Creatinine 0.81 mg/dL (0.70-1.30) 09/15/19 06:35 Estimated GFR/1.73 m2 >= 60.00 (mL/min/1.73m2) 09/15/19 06:35 Glucose 91 mg/dL (74-106) 09/15/19 06:35 Calcium 8.9 mg/dL (8.5-10.1) 09/15/19 06:35 Magnesium 2.3 mg/dL (1.8-2.4) 09/15/19 06:35 Total Bilirubin 0.2 mg/dL (0.2-1.0) 09/15/19 06:35 Conjugated Bilirubin 0.05 mg/dL (0.00-0.20) 09/15/19 06:35 AST 27 U/L (15-37) 09/15/19 06:35 ALT 42 U/L (16-63) 09/15/19 06:35 Alkaline Phosphatase 64 U/L (46-116) 09/15/19 06:35 Creatine Kinase 499 U/L (39-308) H 09/14/19 12:00 Total Protein 6.9 g/dL (6.4-8.2) 09/15/19 06:35 Albumin 3.4 g/dL (3.4-5.0) 09/15/19 06:35 TSH 1.76 uIU/mL (0.36-3.74) 09/14/19 04:45 Urine Color Yellow (Yellow) 09/14/19 12:05 Urine Clarity Clear (Clear) 09/14/19 12:05 Urine pH 7.0 (5-8) 09/14/19 12:05 Ur Specific [place] 1.025 (1.005-1.025) 09/14/19 12:05 Urine Protein Negative mg/dL (Negative) 09/14/19 12:05 Urine Ketones Negative mg/dL (Negative) 09/14/19 12:05 Urine Blood Negative (Negative) 09/14/19 12:05 Urine Nitrite Negative (Negative) 09/14/19 12:05 Urine Bilirubin Negative (Negative) 09/14/19 12:05 Urine Urobilinogen 0.2 EU/dL (Up TO 0.2) 09/14/19 12:05 Ur Leukocyte Esterase Negative (Negative) 09/14/19 12:05 Urine Glucose Negative mg/dL (Negative) 09/14/19 12:05 Salicylates 3.4 mg/dL (2.8-20.0) 09/14/19 04:45 Urine Opiates Screen Negative (Negative) 09/14/19 12:05 Urine Methadone Screen Negative (Negative) 09/14/19 12:05 Acetaminophen < 2 ug/mL (10-30) 09/14/19 04:45 Ur Barbiturates Screen Negative (Negative) 09/14/19 12:05 Ur Tricyclics Screen Negative (Negative) 09/14/19 12:05 Ur Amphetamines Screen Negative (Negative) 09/14/19 12:05 U Benzodiazepines Scrn Negative (Negative) 09/14/19 12:05 Urine Cocaine Screen Negative (Negative) 09/14/19 12:05 Ur THC Screen Positive (Negative) A 09/14/19 12:05 Ethyl Alcohol < 3.0 mg/dL (<3) 09/14/19 04:45 COVID-19 PCR Negative (Negative) 09/14/19 11:52 Nasopharyn COVID-19 PCR Not Applicable 09/14/19 11:52 Ref Test Perform Site [facility] 09/14/19 11:52
[2019-09-16] MEDS: diazePAM 5 MG TAB PO (17:05)
--- NOTE | 2019-09-16 17:13 | CMPROGNOTE_ITS ---
Care Management Progress Note Chief Complaint: Patient is voluntary for admission due to feeling his head is messed up. Reportedly awoke on the side of the road with no memory of how he arrived there and called EMS. Recently released from [employer] after seven year sentence. History of substance use disorder, schizo-affective psychosis, d epression, bipolar disorder, anxiety, prior IV drug use. No mention of SI/HI. His Federal Aluminum Siding Installer is Jose Enrique Carter: P#[phone]; MARCIN spoke with Jose Enrique who is supportive of [place] seeking placement at this time. Jose Enrique agreed to collect any pertinent clinical information for [place] and forward to this video games storywriter, hopefully by Monday. CM provided updated clinical information to and [facility], per [facility] no bed availability today; [place] continues to meet criteria for voluntary hospitalization. [place] has done a fantastic job of communicating his emotional states and verbalizing his fears, which has permitted the team to support him to maintain calm and as stable as possible while awaiting placement. VOLUNTARY FOR INPATIENT PSYCHIATRIC STABILIZATION. Patient is appropriate in all interactions since arriving at [facility]; he continues to be closely observed at this time. [place] will remain at [facility] while [facility] continues to seek a voluntary placement. SAFETY PLAN: 1. Will remain on suicide precautions and in paper clothes. 2. Will remain in room under direct supervision of one-on-one staff at all times provided by CPSO; VARSHA, TECHNOLOGY TEACHER clinical laboratory aide. 3. May have paper cups, plates, finger foods as well as a cardboard spoon with which to eat meals. 4. Follow [facility] Management of the Admitted Behavioral Health Patient policy. 5. Shower permitted with escort at RN discretion-permitted to shave with [employer] oversight and collection of razor. 6. Personal belongings: Permitted to retain possession of cell phone. 7. Visitors-No visitors at this time 8. Activities: None currently. If moved to Med/Surg, will be allowed television in room at nursing discretion. 9. Bathroom privileges: While in the ED, must be accompanied by staff. If patient is moved to Med/Surg, he will be allowed to use the bathroom in his room without supervision. 10. Phone: Patient allowed to retain possession of his cell phone. 11. Due to VOLUNTARY status, if patient wishes to leave [facility], he should be permitted to do so. He is not presenting with SI/HI and has the right to leave of his own volition. Patient is currently voluntarily at [facility] and seeking inpatient admission when a bed becomes available. [facility] Frontline Sales Program Manager will continue seeking placement. Please contact the Rock Star Trawl Net Maker ([phone]) and [facility] Sales Program Manager ([phone]) for any needed changes in the Safety Plan. Safety plan has been provided to interdepartmental care team.
[2019-09-16 19:41] VITALS: BP 117/77; PULSE 64; RESP 19; TEMP 37; O2SAT 98
[2019-09-16] MEDS: buPROPion-CR 100 MG TABCR PO (20:09)
[2019-09-16] MEDS: traZODone 50 MG TAB 150 MG PO (21:38)
[2019-09-16] MEDS: Melatonin 3 MG TAB 9 MG PO (21:39)
[2019-09-16 23:15] VITALS: BP 99/64; PULSE 74; RESP 18; TEMP 37; O2SAT 97
[2019-09-17 07:50] VITALS: BP 98/66; PULSE 76; RESP 19; TEMP 36.9; O2SAT 98
[2019-09-17] MEDS: diazePAM 5 MG TAB PO ×2 (09:25→17:52)
[2019-09-17] MEDS: buPROPion-CR 100 MG TABCR 200 MG PO (09:26)
--- NOTE | 2019-09-17 11:07 | MHPN_ITS ---
Date of service: 09/17/19 Time of Service: 11:07 Mental Health Crisis Note Presenting Issue How did you arrive at the ED and why did you come: [place] arrived on 09/13 to [facility] seeking a voluntary placement after he woke up in a field in [facility] and was not sure how he got there. Precipitating Factors [place] denid SI and HI. He still states that he would only hurt someone if he felt threatened and needed to protect himself. Disposition BEHAVIOR: [place] is reported to not be a challenge reguarding behaviors. He was described and yelling when he is on the phone as whoever he is calling may agitate him. This clinician suggested that if the CPSO's see this behavior to immediately notify the Care Managers and they can update the care plan as needed. EYE CONTACT: Eye contact was not good today as this clinician woke Montana up when I arrived. MOOD: Montana appears tired and reports the same. AFFECT: Montana's affect is flat. APPETITE: Montana looks to have eaten his breakfast. SLEEP(trouble falling/staying asleep: Montnaa reported good sleep. Plan Will continue to seek placement. He would prefer to go to [facility] as his son lives over there. Signature Clinician's Name/Title: Kimber Castle MS, [facility] Emergency Services Clinician
[2019-09-17 11:30] VITALS: BP 115/78; PULSE 91; RESP 19; TEMP 36.6; O2SAT 98
--- NOTE | 2019-09-17 15:42 | W.PM.PROGNOT ---
Date of Service Date of service: 09/17/19 Time of Service: 15:42 Assessment and Plan Assessment and plan (1) Amnestic state: Status: Acute Assessment and plan: No medical etiology such as a seizure or a syncopal event has been identified. has been medically stable with no new events or issues. (2) Paranoid ideation: Status: Acute Assessment and plan: ? psychosis. For now, continue outpatient therapy. Mental health agrees that patient meets criteria for voluntary psychiatric hospitalization. Continue sitter. (3) Concussion: Status: Acute Assessment and plan: Appears to be stable from neurologic stand point. Will monitor mental status. (4) Schizo-affective psychosis: Status: Acute Assessment and plan: As above. Continue outpatient psychiatric medications with plans for psychiatric hospitalization. (5) Bipolar disorder: Status: Acute Assessment and plan: As above (6) DVT prophylaxis: Status: Acute Assessment and plan: lovenox sc/TEDs/SCDs (7) Discharge planning issues: Status: Acute Assessment and plan: Full code Disp: voluntary psychiatric hospitalization. COVID-19 ordered prior to placement. discussed with Dr Bañuelos who is in agreement Subjective Subjective Patient reports: feels better, tolerating liquids well, tolerating a regular diet and voiding w/o difficulty Interval history since last seen: remains medically stable, eating and drinking with no behavioral issues. states he still feels paranoid but that the symptoms are better on the valium than lorazepam. Exam Const General: cooperative, healthy appearing, comfortable and anxious Nutritional Appearance: average body habitus Orientation: alert and oriented x3 [facility] Head: normal to inspection, normocephalic and atraumatic Mouth: oral mucosae normal Resp Effort & Inspection: normal respiratory effort Auscultation: clear to auscultation bilaterally Cardio Rate: regular rate Rhythm: regular rhythm GI Inspection: normal to inspection Palpation: soft Auscultation: normal bowel sounds Skin General skin exam: no rashes or lesions noted Neuro General: patient alert, patient awake and patient oriented x3 Speech: speech normal Motor: muscle tone normal throughout Extrem General: normal to inspection and full ROM Psych Appearance: grossly normal Mental Status: mental status grossly normal Speech and Movement: speech and movement normal Mood: anxious mood and paranoid Affect: anxious affect Attitude: cooperative Thought Process: perseverating Thought Content: phobias Insight: poor Judgment: poor Objective Objective Clinical Data: Vital Signs Temperature 36.6 C 09/17/19 11:30 Temperature Source Tympanic 09/17/19 11:30 Pulse 91 H 09/17/19 11:30 Pulse Rhythm Regular 09/16/19 20:27 Pulse Strength Normal 09/14/19 11:38 Respiratory Rate 19 09/17/19 11:30 Respiratory Effort Non-Labored 09/16/19 20:27 Respiratory Depth Normal 09/16/19 20:27 Respiratory Pattern Normal 09/16/19 20:27 Blood Pressure 115/78 09/17/19 11:30 Blood Pressure Mean 99 09/14/19 11:38 Blood Pressure Position Sitting 09/14/19 11:38 Pulse Oximetry 98 09/17/19 11:30 Oxygen Delivery Method Room Air 09/17/19 11:30 Oxygen Flow Rate 0 09/17/19 11:30 Pain Level 0 09/17/19 11:30 Intake & Output 09/16/19 09/17/19 09/17/19 23:59 11:59 23:59 Intake Total 980 / 1460 480 / 960 480 / 960 Balance 980 / 1460 480 / 960 480 / 960 Intake: Oral 980 / 1460 480 / 960 480 / 960 Other: Urine Color Yellow Urine Appearance Clear Clear Urine Odor None Comment Pt used the toilet to void at this time. Voiding Methods Toilet Toilet Laboratory Results WBC 7.65 10^3/uL (4.4-10.8) 09/15/19 06:35 RBC 4.70 10^6/uL (4.36-5.78) 09/15/19 06:35 Hgb 15.6 g/dL (13.5-17.5) 09/15/19 06:35 Hct 47.5 % (40.0-50.0) 09/15/19 06:35 MCV 101.1 fL (80-95) H 09/15/19 06:35 MCH 33.2 pg (27.0-33.0) H 09/15/19 06:35 MCHC 32.8 % (32.0-36.0) 09/15/19 06:35 RDW 12.0 % (11.8-14.1) 09/15/19 06:35 Plt Count 184 10^3/uL (130-400) 09/15/19 06:35 MPV 9.3 fL (8.0-11.0) 09/15/19 06:35 Immature Gran % 0.5 09/15/19 06:35 Neutrophils % 62.1 09/15/19 06:35 Lymphocytes % 24.1 09/15/19 06:35 Monocytes % 8.0 09/15/19 06:35 Eosinophils % 5.0 09/15/19 06:35 Basophils % 0.3 09/15/19 06:35 Absolute Neutrophils 4.76 10^3/uL (1.2-6.7) 09/15/19 06:35 Absolute Lymphocytes 1.84 10^3/uL (1.2-3.4) 09/15/19 06:35 Absolute Monocytes 0.61 10^3/uL (0.1-0.8) 09/15/19 06:35 Absolute Eosinophils 0.38 10^3/uL (0.0-0.7) 09/15/19 06:35 Absolute Basophils 0.02 10^3/uL (0.0-0.2) 09/15/19 06:35 Sodium 139 mmol/L (136-145) 09/15/19 06:35 Potassium 4.2 mmol/L (3.5-5.1) 09/15/19 06:35 Chloride 104 mmol/L (98-107) 09/15/19 06:35 Carbon Dioxide 28.6 mmol/L (21.0-32.0) 09/15/19 06:35 Anion Gap 6.4 mmol/L (3-11) 09/15/19 06:35 BUN 17 mg/dL (7-18) 09/15/19 06:35 Creatinine 0.81 mg/dL (0.70-1.30) 09/15/19 06:35 Estimated GFR/1.73 m2 >= 60.00 (mL/min/1.73m2) 09/15/19 06:35 Glucose 91 mg/dL (74-106) 09/15/19 06:35 Calcium 8.9 mg/dL (8.5-10.1) 09/15/19 06:35 Magnesium 2.3 mg/dL (1.8-2.4) 09/15/19 06:35 Total Bilirubin 0.2 mg/dL (0.2-1.0) 09/15/19 06:35 Conjugated Bilirubin 0.05 mg/dL (0.00-0.20) 09/15/19 06:35 AST 27 U/L (15-37) 09/15/19 06:35 ALT 42 U/L (16-63) 09/15/19 06:35 Alkaline Phosphatase 64 U/L (46-116) 09/15/19 06:35 Creatine Kinase 499 U/L (39-308) H 09/14/19 12:00 Total Protein 6.9 g/dL (6.4-8.2) 09/15/19 06:35 Albumin 3.4 g/dL (3.4-5.0) 09/15/19 06:35 TSH 1.76 uIU/mL (0.36-3.74) 09/14/19 04:45 Urine Color Yellow (Yellow) 09/14/19 12:05 Urine Clarity Clear (Clear) 09/14/19 12:05 Urine pH 7.0 (5-8) 09/14/19 12:05 Ur Specific [place] 1.025 (1.005-1.025) 09/14/19 12:05 Urine Protein Negative mg/dL (Negative) 09/14/19 12:05 Urine Ketones Negative mg/dL (Negative) 09/14/19 12:05 Urine Blood Negative (Negative) 09/14/19 12:05 Urine Nitrite Negative (Negative) 09/14/19 12:05 Urine Bilirubin Negative (Negative) 09/14/19 12:05 Urine Urobilinogen 0.2 EU/dL (Up TO 0.2) 09/14/19 12:05 Ur Leukocyte Esterase Negative (Negative) 09/14/19 12:05 Urine Glucose Negative mg/dL (Negative) 09/14/19 12:05 Salicylates 3.4 mg/dL (2.8-20.0) 09/14/19 04:45 Urine Opiates Screen Negative (Negative) 09/14/19 12:05 Urine Methadone Screen Negative (Negative) 09/14/19 12:05 Acetaminophen < 2 ug/mL (10-30) 09/14/19 04:45 Ur Barbiturates Screen Negative (Negative) 09/14/19 12:05 Ur Tricyclics Screen Negative (Negative) 09/14/19 12:05 Ur Amphetamines Screen Negative (Negative) 09/14/19 12:05 U Benzodiazepines Scrn Negative (Negative) 09/14/19 12:05 Urine Cocaine Screen Negative (Negative) 09/14/19 12:05 Ur THC Screen Positive (Negative) A 09/14/19 12:05 Ethyl Alcohol < 3.0 mg/dL (<3) 09/14/19 04:45 COVID-19 PCR Negative (Negative) 09/14/19 11:52 Nasopharyn COVID-19 PCR Not Applicable 09/14/19 11:52 Ref Test Perform Site [facility] 09/14/19 11:52
[2019-09-17 16:25] VITALS: BP 128/84; PULSE 95; RESP 19; TEMP 37; O2SAT 97
--- NOTE | 2019-09-17 16:34 | PDOC.CMPRO ---
- If Service Date Differs Date of service: 09/17/19 Time of Service: 16:34 Care Management Progress Note S/O: [place] was lying in bed when CM met with him today. He stated that he was feeling ok, and his needs are being met at [facility] while he awaits voluntary placement for psychiatric stabilization. He stated that he is agreeable to inpatient treatment at this time. Per RN, he has had a shower today and is cooperative and taking his medications as prescribed. No current SI/HI. His Federal Machine I Cutter is Jose Enrique Carter: P#[phone]; CM spoke with Jose Enrique who is supportive of [place] seeking placement at this time. Jose Enrique agreed to collect any pertinent clinical information for [place] and forward to CM, hopefully by Monday. Per FEROZ Quiroga, no bed availability today at or [facility]. No changes to safety plan at this time. SAFETY PLAN: 1. Will remain on suicide precautions and in paper clothes. 2. Will remain in room under direct supervision of one-on-one staff at all times provided by CPSO; VARSHA, GRIP injection operator. 3. May have paper cups, plates, finger foods as well as a cardboard spoon with which to eat meals. 4. Follow [facility] Management of the Admitted Behavioral Health Patient policy. 5. Shower permitted with escort at RN discretion-permitted to shave with CPSO oversight and collection of razor. 6. Personal belongings: Permitted to retain possession of cell phone. 7. Visitors-No visitors at this time 8. Activities: Television in room at nursing discretion. 9. Bathroom privileges: allowed to use the bathroom in his room without supervision. 10. Phone: Patient allowed to retain possession of his cell phone. 11. Due to VOLUNTARY status, if patient wishes to leave [facility], he should be permitted to do so. He is not presenting with SI/HI and has the right to leave of his own volition. Patient is currently voluntarily at [facility] and seeking inpatient admission when a bed becomes available. [facility] Frontline Disability Insurance Hearing Officer will continue seeking placement. Please contact the Scalehouse Attendant Lens Gauger ([phone]) and [facility] Disability Insurance Hearing Officer ([phone]) for any needed changes in the Safety Plan. Safety plan has been provided to interdepartmental care team.
--- NOTE | 2019-09-17 16:41 | PDOC.CMSAFE ---
- If Service Date Differs Date of service: 09/17/19 Time of Service: 16:41 Care Management Safety Plan [place] was lying in bed when CM met with him today. He stated that he was feeling ok, and his needs are being met at [facility] while he awaits voluntary placement for psychiatric stabilization. He stated that he is agreeable to inpatient treatment at this time. Per RN, he has had a shower today and is cooperative and taking his medications as prescribed. No current SI/HI. His Federal Configuration Technician is Jose Enrique Carter: P#[phone]; MARCIN spoke with Jose Enrique who is supportive of [place] seeking placement at this time. Jose Enrique agreed to collect any pertinent clinical information for [place] and forward to CM, hopefully by Monday. Per FEROZ Quiroga, no bed availability today at or [facility]. No changes to safety plan at this time. SAFETY PLAN: 1. Will remain on suicide precautions and in paper clothes. 2. Will remain in room under direct supervision of one-on-one staff at all times provided by CPSO; VARSHA, MANAGER SOCIAL SERVICES counseling services director. 3. May have paper cups, plates, finger foods as well as a cardboard spoon with which to eat meals. 4. Follow [facility] Management of the Admitted Behavioral Health Patient policy. 5. Shower permitted with escort at RN discretion-permitted to shave with CPSO oversight and collection of razor. 6. Personal belongings: Permitted to retain possession of cell phone. 7. Visitors-No visitors at this time 8. Activities: Television in room at nursing discretion. 9. Bathroom privileges: allowed to use the bathroom in his room without supervision. 10. Phone: Patient allowed to retain possession of his cell phone. 11. Due to VOLUNTARY status, if patient wishes to leave [facility], he should be permitted to do so. He is not presenting with SI/HI and has the right to leave of his own volition. Patient is currently voluntarily at [facility] and seeking inpatient admission when a bed becomes available. [facility] Frontline Shoelace Tipping Machine Operator will continue seeking placement. Please contact the Enhanced Environmental Operator Cash Management Associate ([phone]) and [facility] Shoelace Tipping Machine Operator ([phone]) for any needed changes in the Safety Plan. Safety plan has been provided to interdepartmental care team.
[2019-09-17] MEDS: Acetaminophen 325 MG TAB 650 MG PO (17:52)
[2019-09-17] MEDS: buPROPion-CR 100 MG TABCR PO (20:11)
[2019-09-18 06:40] LABS: HCT 46.5 % (40.0-50.0); HGB 15.6 g/dL (13.5-17.5); MCH 33.7 pg (27.0-33.0); MCHC 33.5 % (32.0-36.0); MCV 100.4 fL (80-95); MPV 9.2 fL (8.0-11.0); Platelet Count 201 10^3/uL (130-400); RBC 4.63 10^6/uL (4.36-5.78); RDW 11.9 % (11.8-14.1); RDW-SD 43.4 fL; WBC 7.98 10^3/uL (4.4-10.8)
[2019-09-18] MEDS: buPROPion-CR 100 MG TABCR 200 MG PO (08:57)
[2019-09-18 09:50] VITALS: BP 122/88; PULSE 91; RESP 19; TEMP 37.6; O2SAT 99
--- NOTE | 2019-09-18 10:15 | W.INMHPGNOTE ---
Date of service: 09/18/19 Time of Service: 10:15 Mental Health Crisis Note Presenting Issue How did you arrive at the ED and why did you come: Montana came to ER this past weekend for a voluntary admission. Precipitating Factors Montana denied SI and HI. He is not showing any signs of delusions. Disposition BEHAVIOR: [place] is not really engaging much in conversations only giving simple answers to questions. He is pleasant and not a behavior problem for the hospital. EYE CONTACT: Montana's eye contact is limited to acknowledging my presence. MOOD: Montana appears depressed and withdrawn. AFFECT: Sauls affect is flat with no variations in expression. APPETITE: Montana has been eating normally. SLEEP(trouble falling/staying asleep: Abi reports he has slept fine. Plan will continue to seek voluntary placement for Montana. Signature Clinician's Name/Title: Kimber Castle MS, [facility] Emergency Services Clinician
[2019-09-18 14:04] VITALS: BP 133/80; PULSE 89; RESP 17; TEMP 37.5; O2SAT 96
[2019-09-18] MEDS: Acetaminophen 325 MG TAB 650 MG PO (14:45)
--- NOTE | 2019-09-18 16:27 | PGE_ITS ---
Date of Service Date of service: 09/18/19 Time of Service: 16:27 Assessment and Plan Assessment and plan (1) Amnestic state: Status: Acute Assessment and plan: No medical etiology such as a seizure or a syncopal event has been identified. has been medically stable with no new events or issues. (2) Paranoid ideation: Status: Acute Assessment and plan: ? psychosis. For now, continue outpatient therapy. Mental health agrees that patient meets criteria for voluntary psychiatric hospitalization. Continue sitter. (3) Concussion: Status: Resolved Assessment and plan: Appears to be stable from neurologic stand point. resolved. (4) Schizo-affective psychosis: Status: Acute Assessment and plan: As above. Continue outpatient psychiatric medications with plans for psychiatric hospitalization. (5) Bipolar disorder: Status: Acute Assessment and plan: As above (6) DVT prophylaxis: Status: Acute Assessment and plan: lovenox sc/TEDs/SCDs (7) Discharge planning issues: Status: Acute Assessment and plan: Full code Disp: voluntary psychiatric hospitalization. COVID-19 ordered prior to placement. discussed with Dr Bañuelos who is in agreement Subjective Subjective Patient reports: no new complaints, tolerating liquids well, tolerating a regular diet and afebrile Interval history since last seen: remains medically stable with no c/o Exam Const General: cooperative, healthy appearing, comfortable and anxious Nutritional Appearance: average body habitus Orientation: alert and oriented x3 HENMT Head: normal to inspection, normocephalic and atraumatic Mouth: oral mucosae normal Resp Effort & Inspection: normal respiratory effort Auscultation: clear to auscultation bilaterally Cardio Rate: regular rate Rhythm: regular rhythm GI Inspection: normal to inspection Palpation: soft Auscultation: normal bowel sounds Skin General skin exam: no rashes or lesions noted Neuro General: patient alert, patient awake and patient oriented x3 Speech: speech normal Motor: muscle tone normal throughout Extrem General: normal to inspection and full ROM Psych Appearance: grossly normal Mental Status: mental status grossly normal Speech and Movement: speech and movement normal Mood: anxious mood and paranoid Affect: anxious affect Attitude: cooperative Thought Process: perseverating Thought Content: phobias Insight: poor Judgment: poor Objective Objective Clinical Data: Abnormal lab results 09/18/19 Range/Units 05:50 MCV 100.4 H (80-95) fL MCH 33.7 H (27.0-33.0) pg Vital Signs Temperature 37.5 C 09/18/19 14:04 Temperature Source Tympanic 09/18/19 14:04 Pulse 89 09/18/19 14:04 Pulse Rhythm Regular 09/16/19 20:27 Pulse Strength Normal 09/14/19 11:38 Respiratory Rate 17 09/18/19 14:04 Respiratory Effort Non-Labored 09/16/19 20:27 Respiratory Depth Normal 09/16/19 20:27 Respiratory Pattern Normal 09/16/19 20:27 Blood Pressure 133/80 09/18/19 14:04 Blood Pressure Mean 99 09/14/19 11:38 Blood Pressure Position Sitting 09/14/19 11:38 Pulse Oximetry 96 09/18/19 14:04 Oxygen Delivery Method Room Air 09/18/19 14:04 Oxygen Flow Rate 0 09/18/19 14:04 Pain Level 0 09/18/19 14:04 Intake & Output 09/17/19 09/18/19 09/18/19 23:59 11:59 23:59 Intake Total 480 / 960 720 / 1200 480 / 1200 Balance 480 / 960 720 / 1200 480 / 1200 Intake: Oral 480 / 960 720 / 1200 480 / 1200 Other: Comment Patient independently uses bathroom in his room, per patient. Voiding Methods Toilet Laboratory Results WBC 7.98 10^3/uL (4.4-10.8) 09/18/19 05:50 RBC 4.63 10^6/uL (4.36-5.78) 09/18/19 05:50 Hgb 15.6 g/dL (13.5-17.5) 09/18/19 05:50 Hct 46.5 % (40.0-50.0) 09/18/19 05:50 MCV 100.4 fL (80-95) H 09/18/19 05:50 MCH 33.7 pg (27.0-33.0) H 09/18/19 05:50 MCHC 33.5 % (32.0-36.0) 09/18/19 05:50 RDW 11.9 % (11.8-14.1) 09/18/19 05:50 Plt Count 201 10^3/uL (130-400) 09/18/19 05:50 MPV 9.2 fL (8.0-11.0) 09/18/19 05:50 Immature Gran % 0.5 09/15/19 06:35 Neutrophils % 62.1 09/15/19 06:35 Lymphocytes % 24.1 09/15/19 06:35 Monocytes % 8.0 09/15/19 06:35 Eosinophils % 5.0 09/15/19 06:35 Basophils % 0.3 09/15/19 06:35 Absolute Neutrophils 4.76 10^3/uL (1.2-6.7) 09/15/19 06:35 Absolute Lymphocytes 1.84 10^3/uL (1.2-3.4) 09/15/19 06:35 Absolute Monocytes 0.61 10^3/uL (0.1-0.8) 09/15/19 06:35 Absolute Eosinophils 0.38 10^3/uL (0.0-0.7) 09/15/19 06:35 Absolute Basophils 0.02 10^3/uL (0.0-0.2) 09/15/19 06:35 Sodium 139 mmol/L (136-145) 09/15/19 06:35 Potassium 4.2 mmol/L (3.5-5.1) 09/15/19 06:35 Chloride 104 mmol/L (98-107) 09/15/19 06:35 Carbon Dioxide 28.6 mmol/L (21.0-32.0) 09/15/19 06:35 Anion Gap 6.4 mmol/L (3-11) 09/15/19 06:35 BUN 17 mg/dL (7-18) 09/15/19 06:35 Creatinine 0.81 mg/dL (0.70-1.30) 09/15/19 06:35 Estimated GFR/1.73 m2 >= 60.00 (mL/min/1.73m2) 09/15/19 06:35 Glucose 91 mg/dL (74-106) 09/15/19 06:35 Calcium 8.9 mg/dL (8.5-10.1) 09/15/19 06:35 Magnesium 2.3 mg/dL (1.8-2.4) 09/15/19 06:35 Total Bilirubin 0.2 mg/dL (0.2-1.0) 09/15/19 06:35 Conjugated Bilirubin 0.05 mg/dL (0.00-0.20) 09/15/19 06:35 AST 27 U/L (15-37) 09/15/19 06:35 ALT 42 U/L (16-63) 09/15/19 06:35 Alkaline Phosphatase 64 U/L (46-116) 09/15/19 06:35 Creatine Kinase 499 U/L (39-308) H 09/14/19 12:00 Total Protein 6.9 g/dL (6.4-8.2) 09/15/19 06:35 Albumin 3.4 g/dL (3.4-5.0) 09/15/19 06:35 TSH 1.76 uIU/mL (0.36-3.74) 09/14/19 04:45 Urine Color Yellow (Yellow) 09/14/19 12:05 Urine Clarity Clear (Clear) 09/14/19 12:05 Urine pH 7.0 (5-8) 09/14/19 12:[address] 1.025 (1.005-1.025) 09/14/19 12:05 Urine Protein Negative mg/dL (Negative) 09/14/19 12:05 Urine Ketones Negative mg/dL (Negative) 09/14/19 12:05 Urine Blood Negative (Negative) 09/14/19 12:05 Urine Nitrite Negative (Negative) 09/14/19 12:05 Urine Bilirubin Negative (Negative) 09/14/19 12:05 Urine Urobilinogen 0.2 EU/dL (Up TO 0.2) 09/14/19 12:05 Ur Leukocyte Esterase Negative (Negative) 09/14/19 12:05 Urine Glucose Negative mg/dL (Negative) 09/14/19 12:05 Salicylates 3.4 mg/dL (2.8-20.0) 09/14/19 04:45 Urine Opiates Screen Negative (Negative) 09/14/19 12:05 Urine Methadone Screen Negative (Negative) 09/14/19 12:05 Acetaminophen < 2 ug/mL (10-30) 09/14/19 04:45 Ur Barbiturates Screen Negative (Negative) 09/14/19 12:05 Ur Tricyclics Screen Negative (Negative) 09/14/19 12:05 Ur Amphetamines Screen Negative (Negative) 09/14/19 12:05 U Benzodiazepines Scrn Negative (Negative) 09/14/19 12:05 Urine Cocaine Screen Negative (Negative) 09/14/19 12:05 Ur THC Screen Positive (Negative) A 09/14/19 12:05 Ethyl Alcohol < 3.0 mg/dL (<3) 09/14/19 04:45 COVID-19 PCR Negative (Negative) 09/14/19 11:52 Nasopharyn COVID-19 PCR Not Applicable 09/14/19 11:52 Ref Test Perform Site [facility] lab 09/14/19 11:52
[2019-09-18] MEDS: diazePAM 5 MG TAB PO (17:37)
--- NOTE | 2019-09-18 18:01 | PDOC.CMSAFE ---
- If Service Date Differs Date of service: 09/18/19 Time of Service: 18:01 Care Management Safety Plan [place] was lying in bed watching TV when CM met with him today. He stated that he was feeling ok, and his needs are being met at [facility] while he awaits voluntary placement for psychiatric stabilization. He stated that he is agreeable to inpatient treatment at this time. He answered questions appropriately, but did not engage well in conversation. Per RN, he has had a shower today and is cooperative and taking his medications as prescribed. No current SI/HI. His Federal Liquid Natural Gas Plant Operator is Jose Enrique Carter: P#[phone]; CM spoke with Jose Enrique who is supportive of [place] seeking placement at this time. Jose Enrique agreed to collect any pertinent clinical information for [place] and forward to CM, hopefully by Monday. Per FEROZ Quiroga, no bed availability today at or [facility]. [facility] is considering him, CM sent a referral for review. No changes to safety plan at this time. SAFETY PLAN: 1. Will remain on suicide precautions and in paper clothes. 2. Will remain in room under direct supervision of one-on-one staff at all times provided by [employer]; VARSHA, SENIOR CONTROL SYSTEMS ENGINEER evaporator helper. 3. May have paper cups, plates, finger foods as well as a cardboard spoon with which to eat meals. 4. Follow [facility] Management of the Admitted Behavioral Health Patient policy. 5. Shower permitted with escort at RN discretion-permitted to shave with [employer] oversight and collection of razor. 6. Personal belongings: Permitted to retain possession of cell phone. 7. Visitors-No visitors at this time 8. Activities: Television in room at nursing discretion. 9. Bathroom privileges: allowed to use the bathroom in his room without supervision. 10. Phone: Patient allowed to retain possession of his cell phone. 11. Due to VOLUNTARY status, if patient wishes to leave [facility], he should be permitted to do so. He is not presenting with SI/HI and has the right to leave of his own volition. Patient is currently voluntarily at [facility] and seeking inpatient admission when a bed becomes available. [facility] Frontline Funeral Pre Arrangement Counselor will continue seeking placement. Please contact the [place] Management Specialist Refund Specialist ([phone]) and [facility] Funeral Pre Arrangement Counselor ([phone]) for any needed changes in the Safety Plan. Safety plan has been provided to interdepartmental care team.
--- NOTE | 2019-09-18 18:03 | CMPROGNOTE_ITS ---
- If Service Date Differs Date of service: 09/18/19 Time of Service: 18:03 Care Management Progress Note S/O: [place] was lying in bed watching TV when CM met with him today. He stated that he was feeling ok, and his needs are being met at [facility] while he awaits voluntary placement for psychiatric stabilization. He stated that he is agreeable to inpatient treatment at this time. He answered questions appropriately, but did not engage well in conversation. Per RN, he has had a shower today and is cooperative and taking his medications as prescribed. No current SI/HI. His Federal Wall Cleaner is Jose Enrique Raul: P#[phone]; CM spoke with Jose Enrique who is supportive of [place] seeking placement at this time. Jose Enrique agreed to collect any pertinent clinical information for [place] and forward to CM, hopefully by Monday. Per FEROZ Quiroga, no bed availability today at or [facility]. [facility] is considering him, CM sent a referral for review. No changes to safety plan at this time. A: [place] is a 49 year old male admitted to [facility] on 09/14/19 for Psychosis. P: Referrals have been send to [facility], and [facility] for inpatient psychiatric stabilization. He will transport via [facility] once a bed becomes available. He will follow up with [facility] and his discharge plan of care. CM will continue to follow.
--- NOTE | 2019-09-18 18:03 | PDOC.CMPRO ---
- If Service Date Differs Date of service: 09/18/19 Time of Service: 18:03 Care Management Progress Note S/O: [place] was lying in bed watching TV when CM met with him today. He stated that he was feeling ok, and his needs are being met at [facility] while he awaits voluntary placement for psychiatric stabilization. He stated that he is agreeable to inpatient treatment at this time. He answered questions appropriately, but did not engage well in conversation. Per RN, he has had a shower today and is cooperative and taking his medications as prescribed. No current SI/HI. His Federal Research Geologist is Jose Enrique Raul: P#[phone]; CM spoke with Jose Enrique who is supportive of [place] seeking placement at this time. Jose Enrique agreed to collect any pertinent clinical information for [place] and forward to CM, hopefully by Monday. Per FEROZ Quiroga, no bed availability today at or [facility]. [facility] is considering him, CM sent a referral for review. No changes to safety plan at this time. A: [place] is a 49 year old male admitted to [facility] on 09/14/19 for Psychosis. P: Referrals have been send to [facility], and [facility] for inpatient psychiatric stabilization. He will transport via [facility] once a bed becomes available. He will follow up with [facility] and his discharge plan of care. CM will continue to follow.
[2019-09-18 19:00] VITALS: BP 110/80; PULSE 84; RESP 18; TEMP 36.8; O2SAT 94
[2019-09-18] MEDS: buPROPion-CR 100 MG TABCR PO (19:58)
[2019-09-18] MEDS: traZODone 50 MG TAB 150 MG PO (21:12)
[2019-09-18] MEDS: Melatonin 3 MG TAB 9 MG PO (21:12)
[2019-09-19 07:52] VITALS: BP 115/76; PULSE 88; RESP 17; TEMP 36.6; O2SAT 98
[2019-09-19] MEDS: buPROPion-CR 100 MG TABCR 200 MG PO (08:32)
--- NOTE | 2019-09-19 09:04 | PDOC.CMPRO ---
Care Management Progress Note [place] remains agreeable to inpatient treatment at this time. He answered questions appropriately, but did not engage well in conversation. Per RN, he has had a shower today and is cooperative and taking his medications as prescribed. No current SI/HI. His Federal Senior Sales Engineer is Jose Enrique Carter: Shweta#[phone]; MARCIN spoke with Jose Enrique who is supportive of [place] seeking placement at this time. Jose Enrique agreed to collect any pertinent clinical information for [place] and forward to MARCIN, hopefully by Monday. [facility] has accepted [place] pending bed availability. No changes to safety plan at this time.
--- NOTE | 2019-09-19 09:05 | PDOC.CMSAFE ---
- If Service Date Differs Date of service: 09/19/19 Time of Service: 16:03 Care Management Safety Plan [place] remains agreeable to inpatient treatment and remains cooperative, taking his medications as prescribed. No current SI/HI. His Federal Systems Navigator is Jose Enrique Carter: P#[phone]; MARCIN spoke with Jose Enrique who is supportive of [place] seeking placement at this time. Jose Enrique agreed to collect any pertinent clinical information for [place] and forward to , hopefully by Monday. No changes to safety plan at this time. SAFETY PLAN: 1. Will remain on suicide precautions and in paper clothes. 2. Will remain in room under direct supervision of one-on-one staff at all times provided by [employer]; VARSHA, SALES MARKETING COORDINATOR activities counselor. 3. May have paper cups, plates, finger foods as well as a cardboard spoon with which to eat meals. 4. Follow [facility] Management of the Admitted Behavioral Health Patient policy. 5. Shower permitted with escort at RN discretion-permitted to shave with [employer] oversight and collection of razor. 6. Personal belongings: Permitted to retain possession of cell phone. 7. Visitors-No visitors at this time 8. Activities: Television in room at nursing discretion. 9. Bathroom privileges: allowed to use the bathroom in his room without supervision. 10. Phone: Patient allowed to retain possession of his cell phone. 11. Due to VOLUNTARY status, if patient wishes to leave [facility], he should be permitted to do so. He is not presenting with SI/HI and has the right to leave of his own volition. Patient is currently voluntarily at [facility] and seeking inpatient admission when a bed becomes available. [facility] Frontline Table Runner will continue seeking placement. Please contact the Curator Of Education Gas Load Dispatcher ([phone]) and [facility] Table Runner ([phone]) for any needed changes in the Safety Plan. Safety plan has been provided to interdepartmental care team.
--- NOTE | 2019-09-19 10:31 | MHPN_ITS ---
Date of service: 09/19/19 Time of Service: 10:32 Mental Health Crisis Note Presenting Issue How did you arrive at the ED and why did you come: Montana came to the ED this past weekend after woke up in a field in [facility] with no memories of how he got there. Precipitating Factors [place] denied SI and HI but still is feeling like he needs his meds adjusted so that he can get back on track. Disposition BEHAVIOR: [place] is agitated today stating he did not get any sleep due to the staff being so noisy last night I'm pissed. He answered questions today but still is not very social. industrial maintenance manager reports that he appropriately asks for medications when he is feeling anxious. EYE CONTACT: Eye contact again limited to acknowledging that I and another clinician are in the room. MOOD: Montana presents as agitated and tired today. AFFECT: Montana's affect is grumpy looking today. APPETITE: Montana reports he is eating okay. SLEEP(trouble falling/staying asleep: See above. Plan Will continue to seek placement for [place] today. Signature Clinician's Name/Title: Kimber Castle MS, [facility] Emergency Services Clinician
--- NOTE | 2019-09-19 11:20 | DSE_ITS ---
Date of service: 09/19/19 Time of Service: 11:21 DS: Diagnosis Discharge Diagnosis (1) Amnestic state: Status: Acute (2) Paranoid ideation: Status: Acute (3) Concussion: Status: Resolved (4) Schizo-affective psychosis: Status: Acute (5) Bipolar disorder: Status: Acute Discharge Plan Disposition Patient Disposition: [facility] Condition: Stable Discharge Details Chief Complaint: PsychEval Clinical Impression: Paranoid Reason For Visit: AMNESTIC EPISODE, PARANOID IDEATION, PSYCHOSIS Admit Date/Time: 09/14/19 13:09 Admit Provider: Angi Bañuelos Attending Provider: Angi Bañuelos Primary Care Provider: Soco Dickinson ED Provider: Yasmany Pemberton Hospital Course Hospital Course: This is a 49-year-old male patient with a past medical history significant for bipolar disorder schizoaffective disorder depression anxiety ADHD treated hep C who has been incarcerated in federal residential for many years recently released. S vilma his release he has suffered from extreme paranoia where he believes that armed men with guns have been kicking down his door chasing him through the [place] etc. He reported it to the police. There have been no findings consistent with his story. He was hospitalized here awaiting a voluntary inpatient psychiatric placement but then decided that he did not want to have psychiatric care and was discharged as he was not a danger to himself or others. After his discharge he was found on the side of the road with no recollection of how he got there. His only symptom was pain in the back of his head. His screening in the emergency department showed no medical explanation for his symptoms or findings. He was admitted to the medical surgical unit to be observed on telemetry. He had no dysrhythmias CAT scans negative labs unremarkable. He was medically cleared and is once again agreeing to a voluntary admission at a mental health facility for inpatient psychiatric care. He did have COVID-19 precautionary testing which was negative. He has been hemodynamically stable. He has been eating and drinking with his bowels and bladder functioning. He has been cooperative but remains very paranoid. His symptoms are controlled with as needed Valium. He has been started back on and taking his bupropion, trazodone and Geodon. He we cannot verify any recent prescriptions for Ritalin and have removed from his current medication list. Will defer any other medication adjustments to inpatient psychiatric facility. Referrals have been placed mental health and case management have been following and a bed has been secured at [facility]. He will be discharged and transported by [facility]'s department. discharge discussed with Dr Bañuelos who is in agreement. Home Meds and New Rx's Prescriptions: Continued ALBUTEROL SULFATE HFA 8.5 GM HFA.AER.AD 2 puff Inhalation QID Qty: 3 RF: 4 (DME) Aerochamber Plus Flow-Vu,S Msk 1 EACH spacer 1 ea Miscellaneous QID RF: 0 ziprasidone HCl [Geodon] 40 mg Capsule 40 mg PO HS RF: 0 trazodone 150 mg Tablet 150 mg PO HS RF: 0 bupropion HCl 100 mg Tablet Sustained-Release 12 Hr 100 mg PO QHS RF: 0 bupropion HCl 200 mg Tablet Sustained-Release 12 Hr 200 mg PO QAM RF: 0 Discontinued methylphenidate HCl 20 MG tablet 40 mg PO BID RF: 0 Discharge Instructions Instructions: Psychotic Disorder (DC) Referrals: Soco Dickinson, DIGITAL COLOR PRESS OPERATOR [Primary Care Provider] - (upon discharge from inpatient psychiatric stay) Activity:: Activity as Tolerated Diet:: As Tolerated DS: Summary Status at Discharge Functional status at discharge: independent ambulation Overall status at discharge: patient is not back to baseline Mental Status: mental status grossly normal Speech and Movement: speech and movement normal Mood: anxious mood and paranoid Affect: anxious affect Exam Const General: cooperative, healthy appearing, comfortable and anxious Nutritional Appearance: average body habitus Orientation: alert and oriented x3 HENMT Head: normal to inspection, normocephalic and atraumatic Mouth: oral mucosae normal Resp Effort & Inspection: normal respiratory effort Auscultation: clear to auscultation bilaterally Cardio Rate: regular rate Rhythm: regular rhythm GI Inspection: normal to inspection Palpation: soft Auscultation: normal bowel sounds Skin General skin exam: no rashes or lesions noted Neuro General: patient alert, patient awake and patient oriented x3 Speech: speech normal Motor: muscle tone normal throughout Extrem General: normal to inspection and full ROM Psych Appearance: grossly normal Mental Status: mental status grossly normal Speech and Movement: speech and movement normal Mood: anxious mood and paranoid Affect: anxious affect Attitude: cooperative Thought Process: perseverating Thought Content: phobias Insight: poor Judgment: poor DS: Data Vitals/I&O Vitals and I&O: Vital Signs Temperature 36.6 C 09/19/19 07:52 Temperature Source Temporal Artery Scan 09/19/19 07:52 Pulse 88 09/19/19 07:52 Pulse Rhythm Regular 09/18/19 17:22 Pulse Strength Normal 09/14/19 11:38 Respiratory Rate 17 09/19/19 07:52 Respiratory Effort Non-Labored 09/19/19 01:18 Respiratory Depth Normal 09/19/19 01:18 Respiratory Pattern Normal 09/19/19 01:18 Blood Pressure 115/76 09/19/19 07:52 Blood Pressure Mean 99 09/14/19 11:38 Blood Pressure Position Sitting 09/14/19 11:38 Pulse Oximetry 98 09/19/19 07:52 Oxygen Delivery Method Room Air 09/19/19 07:52 Oxygen Flow Rate 0 09/19/19 07:52 Pain Level 0 09/19/19 07:52 Intake & Output 09/18/19 09/18/19 09/19/19 11:59 23:59 11:59 Intake Total 720 / 1200 480 / 1200 Balance 720 / 1200 480 / 1200 Intake: Oral 720 / 1200 480 / 1200 Other: Comment Patient independently uses bathroom in his room, per patient. Voiding Methods Toilet Toilet Toilet [facility] Medical History (Updated 09/18/19 @ 17:02 by Bridget Patel NP) Abscess of left hand (Resolved) ADHD (Acute) Anxiety (Chronic) Bipolar disorder (Acute) Depression (Chronic) Hepatitis C (Resolved) s/p treatment with interferon IV drug abuse (Chronic) Schizo-affective psychosis (Acute) Surgical History (Updated 09/14/19 @ 17:34 by Angi Bañuelos MD) History of surgery on arm (Acute) Presence of surgical screw in left hand (Acute) S/P right rotator cuff repair (Acute) Family History (Updated 09/14/19 @ 17:37 by Angi Bañuelos MD) Mother Heart disease Father Diabetes Brother Diabetes Hypertension Cancer pancreatic, liver and lung Brother Diabetes Brother Diabetes Sister Cancer pancreatic cancer Social History (Updated 09/14/19 @ 17:38 by Agni Bañuelos MD) Smoking/Tobacco Use Status: Current-Occasional Tobacco Type: cigarettes Alcohol Intake: current Alcohol Intake frequency: a few times a month Alcohol type: beer Drug use: Current Sobriety Substance use type: marijuana and IV drugs Details: No longer uses IV drugs. Last smoked marijuana 3 weeks ago Do you feel safe at home: No
[2019-09-19 16:25] VITALS: BP 129/90; PULSE 88; RESP 17; TEMP 36.9; O2SAT 97
== END 2019-09-19 16:42 | disposition short-term general hospital (02) | DRG 885 ==
LOC: ER 13:41 → MS 09-16 08:09
PROVIDERS: Emergency Medicine; Admitting Provider Internal Medicine; Emergency Provider Physician Assistant; PCP Nurse Practitioner; Visit Provider Internal Medicine
DX: F25.0 Schizoaffective disorder, bipolar type (principal); S06.0X9A Concussion with loss of consciousness of unspecified duration, initial encounter; R41.3 Other amnesia; F41.9 Anxiety disorder, unspecified; F31.9 Bipolar disorder, unspecified; F17.210 Nicotine dependence, cigarettes, uncomplicated; F19.11 Other psychoactive substance abuse, in remission; F90.2 Attention-deficit hyperactivity disorder, combined type; R51 Headache; Z86.19 Personal history of other infectious and parasitic diseases
CPT/HCPCS: 36415; 80048; 80053; 80076; 80307; 82550; 85027; 93005; 99217; 99220; 99232; 99233; 99285; U0003; 70450; 80320; 80329; 81003; 83735; 84443; 85025; 93010; 99226; 99238; 99284; G0378

== ENCOUNTER 2019-10-04 20:02 | Emergency (ER) | payer MEDICAID, SELFPAY ==
[2019-10-04 20:08] VITALS: BP 134/88; PULSE 117; RESP 16; TEMP 35.9; O2SAT 96
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
[2019-10-04 20:16] VITALS: RESP 20
[2019-10-04] MEDS: traZODone 50 MG TAB 150 MG PO (21:13)
[2019-10-04] MEDS: Gabapentin 300 MG CAP 600 MG PO (21:13)
[2019-10-04] MEDS: Methylphenidate 10 MG TAB 40 MG PO (21:14)
[2019-10-04] MEDS: buPROPion-CR 100 MG TABCR PO (21:14)
[2019-10-04 21:18] VITALS: BP 117/85; PULSE 115; RESP 20; O2SAT 94
== END 2019-10-04 21:25 | disposition home or self-care (01) ==
PROVIDERS: Emergency Provider Emergency Medicine; PCP Nurse Practitioner
DX: F25.8 Other schizoaffective disorders (principal); F23 Brief psychotic disorder; R45.1 Restlessness and agitation
CPT/HCPCS: 99283; 99282

== ENCOUNTER 2020-01-01 23:24 | Emergency (ER) | payer MEDICAID, SELFPAY ==
[2020-01-01 23:17] VITALS: BP 145/94; PULSE 111; RESP 18; TEMP 36.5; O2SAT 99
[2020-01-01] MEDS: Ondansetron 0.8 MG/ML Solution 4 MG PO (23:27)
[2020-01-01 23:28] VITALS: RESP 18
--- NOTE | 2020-01-01 23:32 | ED.GENADUL_ITS ---
Discharge Plan Disposition Patient Disposition: HOME Condition: Stable Discharge Details Clinical Impression: Substance abuse Primary Care Provider: Soco Dickinson ED Provider: Aleksey Jones Home Meds and New Rx's Prescriptions: Continued ziprasidone HCl 80 mg capsule 80 mg PO HS Qty: 30 RF: 0 bupropion HCl 150 mg tablet sustained-release 12 hr 150 mg PO BID Qty: 60 RF: 11 ALBUTEROL SULFATE HFA 8.5 GM HFA.AER.AD 2 puff Inhalation QID Qty: 3 RF: 0 trazodone 150 mg tablet 150 mg PO QHS PRN (Reason: insomnia) Qty: 30 RF: 11 methylphenidate HCl 20 mg tablet 40 mg PO BID MDD 80 Qty: 60 RF: 0 (DME) Aerochamber Plus Flow-Vu,S Msk 1 EACH spacer 1 ea Miscellaneous QID RF: 0 Discharge Instructions Instructions: Anxiety (ED), Cannabis Abuse (ED) Additional Instructions: Home to rest this evening. No further use of street drugs. Continue your regular medications. Return to the ER for any acute concerns. Medical Decision Making 49-year-old male presents from home stating after smoking some street obtained marijuana he felt hot and flushed, nauseated. He was worried it was tainted with fentanyl and gave himself Narcan twice at home. States he believes this may have helped. He was nauseated and vomited on route with EMS. He arrives ER somewhat anxious, slightly tachycardic, with otherwise unrema rkable vital signs. Given his anxiety, previous history of drug abuse, paranoia, bipolar disorder, patient was given Ativan and 1 L fluid, screening laboratories were obtained. Slightly positive alcohol. Chemistries and CBC are unremarkable. Patient observed over 1 hour time, improved. Unclear if he may or may not have had tainted marijuana, no evidence of any persistent sedation. He is stable and improved. Admonished not to use street drugs. HPI General Mode of arrival: EMS . Date/Time Provider Initiated Documentation: 01/01/20 23:40 . Limitations to Documentation: no limitations . Information obtained by: patient and EMS . History of Present Illness 49 year old M presents to the emergency department with the chief complaint of Smoked tainted marijuana, described as moderate, and is localized to the chest. Patient reports no radiation. Patient started experiencing this minute(s) and it has been constant. No relieving factors improve symptom(s), No exa cerbating factors reported . Patient notes nausea/vomiting. Patient did receive the following treatments prior to arrival, none Related Data Home Medications Medication Instructions Recorded Confirmed Aerochamber Plus Flow-Vu,S Msk 09/12/12 10/31/19 ziprasidone HCl 80 mg capsule 80 mg PO HS #30 cap 10/31/19 01/01/20 ALBUTEROL SULFATE HFA 2 puff INHALATION QID #3 ea 12/26/19 01/01/20 bupropion HCl 150 mg tablet,12 hr 150 mg PO BID #60 tab 12/26/19 01/01/20 sustained-release methylphenidate HCl 20 mg tablet 40 mg PO BID #60 tab MDD 80 12/26/19 01/01/20 trazodone 150 mg tablet 150 mg PO QHS PRN #30 tab 12/26/19 01/01/20 Previous Rx's Medication Instructions Recorded ziprasidone HCl 80 mg capsule 80 mg PO HS #30 cap 10/31/19 ALBUTEROL SULFATE HFA 2 puff INHALATION QID #3 ea 12/26/19 bupropion HCl 150 mg tablet,12 hr 150 mg PO BID #60 tab 12/26/19 sustained-release methylphenidate HCl 20 mg tablet 40 mg PO BID #60 tab MDD 80 12/26/19 trazodone 150 mg tablet 150 mg PO QHS PRN #30 tab 12/26/19 Allergies Allergy/AdvReac Type Severity Reaction Status Date / Time onion Allergy Intermediate Hives Verified 01/01/20 23:31 General Stated Complaint: GenMedical CHUYITA: 4 Review of Systems Narrative: Denies recent changes to medications. No mood disruption. Feels nauseated. Vomited in the ambulance. No chest pain or shortness of breath at this time. 8 systems reviewed and otherwise negative [facility] Medical History Abscess of left hand ADHD Amnestic state Anxiety Bipolar disorder Depression Hepatitis C s/p treatment with interferon IV drug abuse Paranoid ideation Psychosis Surgical History History of surgery on arm Presence of surgical screw in left hand S/P right rotator cuff repair Family History Mother Heart disease Father Diabetes Brother Diabetes Hypertension Cancer pancreatic, liver and lung Brother Diabetes Brother Diabetes Sister Cancer pancreatic cancer Social History Smoking/Tobacco Use Status: Current-Occasional Tobacco Type: cigarettes Smoking risk assessment performed?: Yes Alcohol Intake: current Alcohol Intake frequency: a few times a month Alcohol type: beer Drug use: Current Sobriety Substance use type: marijuana and IV drugs Details: No longer uses IV drugs. Last smoked marijuana today Do you feel safe at home: Yes Do you feel safe in your relationship?: Yes Exam Narrative Exam Narrative: GEN: awake, alert, oriented 3. Pleasant, well groomed, interactive but anxious. HEAD: Normocephalic, atraumatic ENT: Mucous membranes moist, oropharynx unremarkable, External ear exam unremarkable EYES: PERRL, EOMI NECK: Full ROM, no MARIUSZ, no menigismus CHEST/RESP: Nontender, clear to auscultation bilateral, no wheeze/rhonchi/rales CARDIOVASCULAR: Irregular and tachycardic, no murmur, rub nbaeel. 2+ Rad pulse bilateral ABDOMEN: Soft, nontender, no mass. +Bowel sounds EXT: Full ROM, no edema, no rash Neuro: Grossly normal neurologic exam, conversant, interactive. Psych: Speech fluent, thoughts congruent, affect anxious Course Vital Signs Vital signs: Vital Signs Temperature 36.5 C 01/01/20 23:17 Pulse 111 H 01/01/20 23:17 Respiratory Rate 18 01/01/20 23:17 Blood Pressure 145/94 H 01/01/20 23:17 Pulse Oximetry 99 01/01/20 23:17 Temperature 36.5 C 01/01/20 23:17 Temperature Source Skin 01/01/20 23:17 Pulse 111 H 01/01/20 23:17 Respiratory Rate 18 01/01/20 23:28 Respiratory Effort Non-Labored 01/01/20 23:28 Respiratory Depth Normal 01/01/20 23:28 Respiratory Pattern Normal 01/01/20 23:28 Blood Pressure 145/94 H 01/01/20 23:17 Blood Pressure Position Sitting 01/01/20 23:17 Pulse Oximetry 99 01/01/20 23:17 Oxygen Delivery Method Room Air 01/01/20 23:17 Oxygen Flow Rate 0 01/01/20 23:17 Pain Level 0 01/01/20 23:17
[2020-01-01] MEDS: Normal Saline 1,000 ML 1000 ML IV (23:38)
[2020-01-01] MEDS: LORazepam 2 MG/ML VIAL 0.5 MG IVP ×2 (23:38→23:47)
[2020-01-01 23:43] LABS: Abs Immature Grans 0.04 10^3/uL (0.0-0.06); Absolute Basophil Count 0.03 10^3/uL (0.0-0.2); Absolute Eosinophil Count 0.29 10^3/uL (0.0-0.7); Absolute Monocyte Count 0.51 10^3/uL (0.1-0.8); Absolute Neutrophil Count 6.52 10^3/uL (1.2-6.7); Basophils % 0.3; Eosinophils % 3.1; HCT 37.6 % (40.0-50.0); HGB 12.7 g/dL (13.5-17.5); Immature Grans % 0.4; Lymphocytes % 22.1; MCH 32.3 pg (27.0-33.0); MCHC 33.8 % (32.0-36.0); MCV 95.7 fL (80-95); MPV 9.1 fL (8.0-11.0); Monocytes % 5.4; Neutrophils % 68.7; Nucleated RBC 0 %; Platelet Count 200 10^3/uL (130-400); RBC 3.93 10^6/uL (4.36-5.78); RDW 11.5 % (11.8-14.1); RDW-SD 40.2 fL; WBC 9.49 10^3/uL (4.4-10.8)
[2020-01-01 23:58] LABS: ALT 30 U/L (16-63); AST 17 U/L (15-37); Albumin 3.8 g/dL (3.4-5.0); Alkaline Phosphatase 60 U/L (46-116); Anion Gap 5.7 mmol/L (3-11); BUN 8 mg/dL (7-18); Bilirubin, Total 0.3 mg/dL (0.2-1.0); CO2 30.3 mmol/L (21.0-32.0); CREATININE 0.95 mg/dL (0.70-1.30); Calcium 8.9 mg/dL (8.5-10.1); Chloride 105 mmol/L (98-107); ETHANOL BLOOD 4.3 mg/dL (<3); Glucose 146 mg/dL (74-106); Potassium 3.9 mmol/L (3.5-5.1); Sodium 141 mmol/L (136-145); Total Protein 7.2 g/dL (6.4-8.2)
== END 2020-01-02 00:18 | disposition home or self-care (01) ==
PROVIDERS: Emergency Provider Emergency Medicine; PCP Nurse Practitioner
DX: R00.0 Tachycardia, unspecified (principal); F41.9 Anxiety disorder, unspecified; F12.10 Cannabis abuse, uncomplicated; T40.7X5A Adverse effect of cannabis (derivatives), initial encounter
CPT/HCPCS: 36415; 80053; 96361; 96374; 99284; 80320; 85025; J2060; J8597

== ENCOUNTER 2020-04-19 00:20 | Emergency (ER) | payer MEDICAID, SELFPAY ==
[2020-04-19 00:28] VITALS: BP 145/93; PULSE 107; RESP 18; TEMP 36.6; O2SAT 96
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
== END 2020-04-19 05:19 | disposition home or self-care (01) ==
PROVIDERS: Emergency Provider Emergency Medicine; PCP Nurse Practitioner
DX: R53.83 Other fatigue (principal); T43.595A Adverse effect of other antipsychotics and neuroleptics, initial encounter; F31.9 Bipolar disorder, unspecified
CPT/HCPCS: 99283

== ENCOUNTER 2021-01-18 12:24 | Outpatient (REF) | payer MEDICAID, SELFPAY ==
[2021-01-19 20:07] LABS: COVID-19 RT-PCR UVMMC Result Negative (Negative)
== END 2021-01-18 12:25 | disposition home or self-care (01) ==
LOC: LBN 12:24
PROVIDERS: PCP Nurse Practitioner; Visit Provider Physician Assistant Medical
DX: Z20.822 Contact with and (suspected) exposure to COVID-19 (principal); J06.9 Acute upper respiratory infection, unspecified
CPT/HCPCS: U0003

== ENCOUNTER 2021-05-15 11:36 | Emergency (ER) | payer MEDICAID, SELFPAY ==
[2021-05-15 11:40] VITALS: BP 137/96; PULSE 96; RESP 18; TEMP 36.4; O2SAT 99
--- NOTE | 2021-05-15 12:00 | DI.RAD_ITS ---
Exam(s) XR TIB/FIB LT EXAM: XR TIB/FIB LT CLINICAL HISTORY: r/o FB, fluid TECHNIQUE: COMPARISON: No exams were available for comparison FINDINGS: Three views were obtained. Requisition raises the possibility of foreign body and no foreign bodies identified. No bony or soft tissue abnormality seen. IMPRESSION: RADIATION DOSE DELIVERED: Total DLP
--- NOTE | 2021-05-15 12:15 | ED.GENADUL_ITS ---
Discharge Plan Disposition Patient Disposition: HOME Condition: Stable Discharge Details Clinical Impression: Cellulitis of left leg without foot, Puncture wound of left lower extremity Primary Care Provider: Soco Dickinson ED Provider: Kylie Calderon Home Meds and New Rx's Prescriptions: New cephalexin 500 mg tablet 500 mg PO BID 7 Days Qty: 14 0RF sulfamethoxazole-trimethoprim [Bactrim DS] 800-160 mg tablet 1 tab PO BID 10 Days Qty: 20 0RF Rx Instructions: Take with food. Continued ALBUTEROL SULFATE HFA 8.5 GM HFA.AER.AD 2 puff Inhalation QID Qty: 3 0RF trazodone 150 mg tablet 150 mg PO QHS PRN (Reason: insomnia) Qty: 30 11RF methylphenidate HCl 20 mg tablet 40 mg PO BID MDD 80 Qty: 60 0RF Rx Instructions: gabapentin 300 mg Capsule 600 mg PO TID 0RF ziprasidone HCl 80 mg capsule 20 mg PO HS 0RF bupropion HCl 150 mg tablet sustained-release 12 hr 300 mg PO BID 0RF No Action (DME) Aerochamber Plus Flow-Vu,S Msk 1 EACH spacer 1 ea Miscellaneous QID 0RF Rx Instructions: WITH LARGE MASK Discharge Instructions Instructions: Puncture Wound (ED), Cellulitis (ED) Additional Instructions: Please take the antibiotic as directed twice daily with food. Please eat yogurt or probiotic while taking the antibiotic. You are given the first dose here in the department. And 2 tablets to go. You will need to take the prescription to the pharmacy of your choice to get the remainder of the antibiotic. Please take for 10 days. Follow up with primary care provider in 3-5 days. Return to ED sooner if any worsening or concerns. Increase oral fluids. Please take Tylenol or Ibuprofen with food every 4-6 hours as needed for pain and swelling. Stand Alone Forms: Work Release Referrals: Soco Dickinson, [employer] [Primary Care Provider] - 1 week Discharge Data Discharge Date/Time-TO BE ENTERED AT DEPARTURE: 05/15/21 12:52 Medical Decision Making 50-year-old male presents to the ER with chief complaint of left lower extremity erythema and possible cellulitis. Patient reports this began 10 days ago and he reports that it gets worse at the end of the day. He reports that it swelled up and has becomes purple. He denies any recent injuries however he then changes his story and states that he fell. There is noted a single puncture wound to the anterior bolaños which is surrounded by approximately 8 cm x 5 cm of erythema. No area of fluctuance or evidence of abscess. He denies any fever chills, nausea vomiting diarrhea or any other associated symptoms. Past medical history includes bipolar disorder, herniated disc, low back pain, IV drug abuse, hepatitis C, ADHD, anxiety, depression. Imaging ordered to rule out foreign body or underlying abnormality. Patient is very demanding in department is requesting RCT for a ride and wondering how long this is going to take. After x-rays returned patient is no florencia to be at of the nurses station pain on the window and asking for a work note. Patient discharged from department, ambulatory fluid and medically stable. Given instructions on follow-up care return instructions. Prescription for cephalexin and Bactrim given to patient. This text was generated using [employer] dictation system, please disregard any oddities of phrase or misspellings. Medical Records Medical records reviewed: Yes I reviewed the patient's medical records. Imaging Data Radiologic Study: Imaging: X-Ray Radiologist's impression: EXAM: XR TIB/FIB LT CLINICAL HISTORY: r/o FB, fluid TECHNIQUE: COMPARISON: No exams were available for comparison FINDINGS: Three views were obtained. Requisition raises the possibility of foreign body and no foreign bodies identified. No bony or soft tissue abnormality seen. HPI General Mode of arrival: ambulatory . Date/Time Provider Initiated Documentation: 05/15/21 12:04 . Limitations to Documentation: no limitations . Information obtained by: patient, RN notes reviewed and old records reviewed . HPI Narrative: 50-year-old male presents to the ER with chief complaint of left lower extremity erythema and possible cellulitis. Patient reports this began 10 days ago and he reports that it gets worse at the end of the day. He reports that it swelled up and has becomes purple. He denies any recent injuries however he then changes his story and states that he fell. There is noted a single puncture wound to the anterior bolaños which is surrounded by approximately 8 cm x 5 cm of erythema. No area of fluctuance or evidence of abscess. He denies any fever chills, nausea vomiting diarrhea or any other associated symptoms. Past medical history includes bipolar disorder, herniated disc, low back pain, IV drug abuse, hepatitis C, ADHD, anxiety, depression. Related Data Home Medications Medication Instructions Recorded Confirmed inhalational spacing device 09/12/12 10/31/19 (Aerochamber Plus Flow-Vu,Small Mask) ALBUTEROL SULFATE HFA 2 puff INHALATION QID #3 ea 12/26/19 04/19/20 methylphenidate HCl 20 mg tablet 40 mg PO BID #60 tab MDD 80 12/26/19 05/15/21 trazodone 150 mg tablet 150 mg PO QHS PRN #30 tab 12/26/19 05/15/21 bupropion HCl 150 mg tablet,12 hr 300 mg PO BID 05/15/21 sustained-release cephalexin 500 mg tablet 500 mg PO BID 7 Days #14 tab 05/15/21 gabapentin 300 mg capsule 600 mg PO TID 05/15/21 05/15/21 sulfamethoxazole 800 1 tab PO BID 10 Days #20 tab 05/15/21 mg-trimethoprim 160 mg tablet (Bactrim DS) ziprasidone HCl 80 mg capsule 20 mg PO HS 05/15/21 05/15/21 Previous Rx's Medication Instructions Recorded ALBUTEROL SULFATE HFA 2 puff INHALATION QID #3 ea 12/26/19 methylphenidate HCl 20 mg tablet 40 mg PO BID #60 tab MDD 80 12/26/19 trazodone 150 mg tablet 150 mg PO QHS PRN #30 tab 12/26/19 cephalexin 500 mg tablet 500 mg PO BID 7 Days #14 tab 05/15/21 sulfamethoxazole 800 1 tab PO BID 10 Days #20 tab 05/15/21 mg-trimethoprim 160 mg tablet (Bactrim DS) Allergies Allergy/AdvReac Type Severity Reaction Status Date / Time onion Allergy Intermediate Hives Verified 05/15/21 11:43 General Stated Complaint: Cellulitis CHUYITA: 3 Review of Systems All systems reviewed & are unremarkable except as noted in HPI and below Musculoskeletal Musculoskeletal: Reports as per HPI Integumentary/Breasts Skin/Breast: Reports change in pigmentation and Reports lesions (LLE) [facility] All Active Problems Medication side effects (Acute) Cellulitis of left leg without foot (Acute) Puncture wound of left lower extremity (Acute) Bipolar disorder (Acute) Paranoid (Acute) Herniated disc (Acute) Low back pain (Acute) IV drug abuse (Chronic) Medical History Abscess of left hand ADHD Amnestic state Anxiety Depression Paranoid ideation Psychosis Surgical History History of surgery on arm Presence of surgical screw in left hand S/P right rotator cuff repair Family History Mother Heart disease Father Diabetes Brother Diabetes Hypertension Cancer pancreatic, liver and lung Brother Diabetes Brother Diabetes Sister Cancer pancreatic cancer Social History Smoking/Tobacco Use Status: Current-Occasional Tobacco Type: cigarettes Smoking risk assessment performed?: Yes Alcohol Intake: current Alcohol Intake frequency: a few times a month Alcohol type: beer Drug use: Current Sobriety Substance use type: marijuana and IV drugs Details: No longer uses IV drugs. Last smoked marijuana today Do you feel safe at home: Yes Do you feel safe in your relationship?: Yes Exam Const General: cooperative Orientation: alert, awake and oriented x3 Limitations: behavioral limitations Extrem General: normal to inspection Upper/lower leg/hip images: 1. Area of erythema, a central single puncture is noted. No area of drainage or abscess noted no fluctuance. Psych Affect: hostile and irritable affect Course Vital Signs Vital signs: Vital Signs Temperature 36.4 C L 05/15/21 11:40 Pulse 96 H 05/15/21 11:40 Respiratory Rate 18 05/15/21 11:40 Blood Pressure 137/96 H 05/15/21 11:40 Pulse Oximetry 99 05/15/21 11:40 Temperature 36.4 C L 05/15/21 11:40 Temperature Source Temporal Artery Scan 05/15/21 11:40 Pulse 96 H 05/15/21 11:40 Respiratory Rate 18 05/15/21 11:40 Respiratory Effort Non-Labored 05/15/21 11:45 Blood Pressure 137/96 H 05/15/21 11:40 Blood Pressure Position Sitting 05/15/21 11:40 Pulse Oximetry 99 05/15/21 11:40 Oxygen Delivery Method Room Air 05/15/21 11:40 Oxygen Flow Rate 0 05/15/21 11:40
[2021-05-15] MEDS: Cephalexin 500 MG CAP PO (12:17)
[2021-05-15] MEDS: Sulfameth/Trimeth DS TAB 1 TAB PO (12:20)
--- NOTE | 2021-05-15 12:43 | DI.VRAD_ITS ---
PROCEDURE INFORMATION: Exam: XR Left Tibia and Fibula Exam date and time: 05/15/2021 12:24 PM Age: 50 years old Clinical indication: Other: R/O fb, fluid TECHNIQUE: Imaging protocol: XR Left tibia and fibula. Views: 2 views. COMPARISON: No relevant prior studies available. FINDINGS: Bones/joints: Normal mineralization and alignment. No fracture, degenerative spur, osseous erosion, joint effusion, joint body or other deformity. Soft tissues: Normal. IMPRESSION: 1. Normal. No abnormal fluid collection. 2. No soft tissue foreign body. Dictated and Authenticated by: Juan Carlos Cline MD. Ordering:ORLANDO Espinal MD
[2021-05-15] MEDS: Cephalexin 500 MG CAP, 2 CAPS/BTL PO (12:47)
[2021-05-15] MEDS: Sulfameth/Trimeth DS, 2 TABS/BTL 1 TAB PO (12:47)
== END 2021-05-15 12:52 | disposition home or self-care (01) ==
PROVIDERS: Emergency Provider Registered Nurse Emergency; PCP Nurse Practitioner
DX: L03.116 Cellulitis of left lower limb (principal); S81.832A Puncture wound without foreign body, left lower leg, initial encounter; X58.XXXA Exposure to other specified factors, initial encounter
CPT/HCPCS: 99283; 73590

== ENCOUNTER 2021-07-03 18:09 | Emergency (ER) | payer MEDICAID, SELFPAY ==
[2021-07-03 18:16] VITALS: BP 132/90; PULSE 112; RESP 16; TEMP 36.7; O2SAT 98
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
[2021-07-03 19:16] LABS: Abs Immature Grans 0.15 10^3/uL (0.0-0.06); HCT 46.1 % (40.0-50.0); HGB 15.4 g/dL (13.5-17.5); MCH 31.8 pg (27.0-33.0); MCHC 33.4 % (32.0-36.0); MCV 95 fL (80-95); MPV 9.1 fL (8.0-11.0); Platelet Count 221 10^3/uL (130-400); RBC 4.84 10^6/uL (4.36-5.78); RDW-SD 41.8 fL; WBC 21.64 10^3/uL (4.4-10.8)
--- NOTE | 2021-07-03 19:20 | NUR.NOTE ---
Nursing Note: Patient refusing to provide urine. Provider aware
[2021-07-03 19:29] LABS: Absolute Eosinophil Count 0.22 10^3/uL (0.0-0.7); Absolute Lymphocyte Count 0.65 10^3/uL (1.2-3.4); Absolute Monocyte Count 0.43 10^3/uL (0.1-0.8); Absolute Neutrophil Count 20.34 10^3/uL (1.2-6.7); Bands % 10; Diff Comment Manual Differential; RBC Morphology Normal
[2021-07-03 19:33] LABS: ALT 51 U/L (16-63); AST 40 U/L (15-37); Albumin 4.1 g/dL (3.4-5.0); Alkaline Phosphatase 69 U/L (46-116); Anion Gap 8.5 mmol/L (3-11); BUN 13 mg/dL (7-18); Bilirubin, Total 0.8 mg/dL (0.2-1.0); CO2 27.5 mmol/L (21.0-32.0); CREATININE 0.9 mg/dL (0.70-1.30); Calcium 9.6 mg/dL (8.5-10.1); Chloride 101 mmol/L (98-107); Glucose 108 mg/dL (74-106); Potassium 4.1 mmol/L (3.5-5.1); Sodium 137 mmol/L (136-145); Total Protein 7.7 g/dL (6.4-8.2)
== END 2021-07-03 19:46 | disposition home or self-care (01) ==
PROVIDERS: Emergency Provider Emergency Medicine; PCP Nurse Practitioner
DX: R10.9 Unspecified abdominal pain (principal)
CPT/HCPCS: 80053; 99282; 85025

== ENCOUNTER 2021-07-06 22:48 | Emergency (ER) | payer MEDICAID, SELFPAY ==
[2021-07-06 22:51] VITALS: BP 133/99; PULSE 82; RESP 18; TEMP 36.3; O2SAT 99
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
[2021-07-07] MEDS: Ziprasidone 20 MG CAP PO (00:37)
[2021-07-07 00:48] VITALS: BP 132/76; PULSE 68; RESP 18; O2SAT 99
== END 2021-07-07 00:48 | disposition home or self-care (01) ==
PROVIDERS: Emergency Provider Physician Assistant; PCP Nurse Practitioner
DX: F22 Delusional disorders (principal)
CPT/HCPCS: 99285; 99283

== ENCOUNTER 2021-07-09 21:46 | Emergency (ER) | payer MEDICAID, SELFPAY ==
[2021-07-09 21:36] VITALS: BP 134/77; PULSE 101; RESP 18; TEMP 36.9; O2SAT 100
--- NOTE | 2021-07-09 21:45 | DI.CT_ITS ---
Exam(s) CT HEAD WO EXAM: CT HEAD WO CLINICAL HISTORY: severe ZAVALA. TECHNIQUE: Imaging Protocol: Axial computed tomography images with coronal and sagittal reformatted images were created and reviewed COMPARISON: CT CT HEAD WO from 09/14/2019 FINDINGS: No skull fractures. Mild mucosal thickening is again noted in the maxillary sinuses, not associated with fluid levels. Other paranasal sinuses and mastoid air cells are clear. There is no evidence of intracranial hemorrhage, mass effect, or shift of midline structures. There are no extra-axial fluid collections. The ventricles are not enlarged or shifted and there is no blo od within the ventricular system nor within the basal cisterns. IMPRESSION: No acute intracranial findings on this noninfused CT scan of the brain. Mild paranasal sinus disease. RADIATION DOSE DELIVERED: 816.69mGy.cm Total DLP DATA REPOSITORY: All CT scans at this facility are submitted to the National Radiology Data Registry (NRDR) Dose Index Registry (DIR) with the [employer] ([employer]). RADIATION OPTIMIZATION: All CT scans at this facility use at least one of these dose optimization te chniques: automated exposure control; mA and/or kV adjustment per patient size (includes targeted exa ms where dose is matched to clinical indication); or iterative reconstruction.
--- NOTE | 2021-07-09 21:45 | RT.EKG_ITS ---
APPROVED REPORT Exam: Resting ECG Reason for Exam: Patient Location: E HR:96 bpm ECG Measurements Heart Rate 96 AXIS MO 148 P 65 QRSd 98 QRS 88 QT 351 T 1 QTc 443 Conclusion Sinus rhythm...normal P axis, V-rate 60- 99 Probable left atrial enlargement...P >50mS, <-0.10mV V1
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
[2021-07-09 22:16] LABS: Abs Immature Grans 0.03 10^3/uL (0.0-0.06); Absolute Basophil Count 0.04 10^3/uL (0.0-0.2); Absolute Eosinophil Count 0.12 10^3/uL (0.0-0.7); Absolute Lymphocyte Count 1.84 10^3/uL (1.2-3.4); Absolute Monocyte Count 0.73 10^3/uL (0.1-0.8); Absolute Neutrophil Count 7.32 10^3/uL (1.2-6.7); Basophils % 0.4; Eosinophils % 1.2; HCT 42.3 % (40.0-50.0); HGB 14.4 g/dL (13.5-17.5); Immature Grans % 0.3; Lymphocytes % 18.3; MCH 32.1 pg (27.0-33.0); MCV 94 fL (80-95); MPV 9.4 fL (8.0-11.0); Monocytes % 7.2; Neutrophils % 72.6; Platelet Count 210 10^3/uL (130-400); RBC 4.48 10^6/uL (4.36-5.78); RDW 11.9 % (11.8-14.1); RDW-SD 41.6 fL; WBC 10.08 10^3/uL (4.4-10.8)
[2021-07-09] MEDS: Normal Saline 1,000 ML 1000 ML IV (22:19)
[2021-07-09] MEDS: LORazepam 2 MG/ML VIAL 1 MG IVP (22:19)
--- NOTE | 2021-07-09 22:20 | NUR.NOTE ---
Nursing Note: Patient arrived around 21:30. He was immediately verbally aggressive with staff. When this scribe attempted to verify his name and , he replied you already know my fucking birthday from before. After attempting to explain why this process is repeated every time patient arrives, he continued to say you already fucking know and no fucking blood pressure either. He did allow staff to take vital signs. When asked how he was feeling, he said I want some fucking pussy. Staff told patient this is inappropriate and will not be accepted by staff. He then went on to say I just want my blood taken so I can prove people are trying to poison me. Some questions he would not answer for this scribe. After provider and security arrived, patient more agreeable with intermittent periods of swearing and calling this scribe a fucking bitch.
[2021-07-09 22:30] LABS: ALT 104 U/L (16-63); AST 67 U/L (15-37); Albumin 3.7 g/dL (3.4-5.0); Alkaline Phosphatase 63 U/L (46-116); Anion Gap 8.4 mmol/L (3-11); BUN 12 mg/dL (7-18); Bilirubin, Total 0.5 mg/dL (0.2-1.0); CO2 25.6 mmol/L (21.0-32.0); Chloride 103 mmol/L (98-107); Glucose 101 mg/dL (74-106); Potassium 3.8 mmol/L (3.5-5.1); Sodium 137 mmol/L (136-145); Total Protein 7.3 g/dL (6.4-8.2)
--- NOTE | 2021-07-09 22:52 | DI.VRAD_ITS ---
PROCEDURE INFORMATION: Exam: CT Head Without Contrast Exam date and time: 07/09/2021 10:32 PM Age: 50 years old Clinical indication: Pain; Headache not specified; Additional info: Severe headache TECHNIQUE: Imaging protocol: Computed tomography of the head without contrast. Radiation optimization: All CT scans at this facility use at least one of these dose optimization techniques: automated exposure control; mA and/or kV adjustment per patient size (includes targeted exams where dose is matched to clinical indication); or iterative reconstruction. COMPARISON: CT HEAD WO 09/14/2019 12:20 PM FINDINGS: Brain: Normal. No hemorrhage. Unremarkable white matter. No mass effect. Cerebral ventricles: No ventriculomegaly. Paranasal sinuses: Minimal mucosal thickening of the maxillary sinuses and a few ethmoid air cells. Tiny retention cyst in the right maxillary sinus. Mastoid air cells: Visualized mastoid air cells are well aerated. Bones/joints: Unremarkable. No acute fracture. Soft tissues: Unremarkable. IMPRESSION: No acute intracranial abnormality. Dictated and Authenticated by: Davey Choudhury MD. Ordering:MINNA Roa MD
[2021-07-10 00:38] LABS: *AMPHETAMINES SCREEN URINE Negative (Negative); *BARBITURATES SCREEN URINE Negative (Negative); *BENZODIAZEPINES SCREEN URINE Negative (Negative); Cannabinoids THC Positive (Negative); Cocaine Screen,Urine Positive (Negative); METHADONE URINE SCREEN Negative (Negative); OPIATES URINE SCREEN Negative (Negative)
[2021-07-10 00:41] LABS: Tricyclic Antidepressants Negative (Negative)
[2021-07-12 13:15] LABS: Hepatitis A Antibody IgM Negative (Negative); Hepatitis B Core Antibody Negative (Negative); Hepatitis B surface Ag Negative (Negative); Hepatitis C Ab w Rflx HCV PCR Reactive (Negative)
[2021-07-14 14:06] LABS: HCV RNA Detection Quantitative 15700 IU/mL (Undetected); HCV RNA Qualitative Detected (Undetected)
== END 2021-07-10 01:05 | disposition home or self-care (01) ==
PROVIDERS: Emergency Provider Physician Assistant; PCP Nurse Practitioner
DX: F22 Delusional disorders (principal); R74.01 Elevation of levels of liver transaminase levels; R51.9 Headache, unspecified; R07.9 Chest pain, unspecified
CPT/HCPCS: 80053; 80307; 86704; 86709; 86803; 87340; 87522; 93005; 96361; 96374; 99284; 70450; 85025; 93010; J2060

== ENCOUNTER 2021-07-10 08:35 | Emergency (ER) | payer MEDICAID, SELFPAY ==
[2021-07-10 08:39] VITALS: BP 141/101; PULSE 87; RESP 18; TEMP 37; O2SAT 96
--- NOTE | 2021-07-10 08:47 | ED.GENADUL_ITS ---
Discharge Plan Disposition Patient Disposition: HOME Discharge Details Clinical Impression: Paranoid Primary Care Provider: Soco Dickinson ED Provider: Papi Walters Home Meds and New Rx's Prescriptions: No Action ALBUTEROL SULFATE HFA 8.5 GM HFA.AER.AD 2 puff Inhalation QID Qty: 3 0RF trazodone 150 mg tablet 150 mg PO QHS PRN (Reason: insomnia) Qty: 30 11RF methylphenidate HCl 20 mg tablet 40 mg PO BID MDD 80 Qty: 60 0RF Rx Instructions: (DME) Aerochamber Plus Flow-Vu,S Msk 1 EACH spacer 1 ea Miscellaneous QID Rx Instructions: WITH LARGE MASK gabapentin 300 mg Capsule 600 mg PO TID ziprasidone HCl 80 mg capsule 20 mg PO HS bupropion HCl 150 mg tablet sustained-release 12 hr 300 mg PO BID Discharge Instructions Additional Instructions: You need to follow-up with your primary care doctor on Monday and arrange for the medication to be prescribed. Medical Decision Making 50-year-old gentleman with mental health issues. He presents with persistent paranoid ideations. I saw him last week and he appears to be at the same level. He states he has not taken medication because he threw them away because he thought they were being tampered and he did not want to be poisoned. He will be given his regular medications in the emergency department and breakfast. I believe that it is safe for him to be discharged. HPI General Date/Time Provider Initiated Documentation: 07/10/21 08:43 . HPI Narrative: 50-year-old gentleman presents to the emergency department last night. He was discharged last night yet spent the night in the waiting room. He woke up this morning requesting his normal medications. He is upset that he can not find his wallet.He is still convinced that people are trying to kill him. He has not taken his meds in the past few days because he is convinced that his meds are being tampered by his enemies and he can not risk being poisoned. Related Data Home Medications Medication Instructions Recorded Confirmed inhalational spacing device 09/12/12 07/03/21 (Aerochamber Plus Flow-Vu,Small Mask) ALBUTEROL SULFATE HFA 2 puff inhalation QID #3 ea 12/26/19 07/10/21 methylphenidate HCl 20 mg tablet 40 mg PO BID #60 tabs 12/26/19 07/10/21 trazodone 150 mg tablet 150 mg PO QHS PRN insomnia #30 tabs 12/26/19 07/10/21 bupropion HCl 150 mg tablet,12 hr 300 mg PO BID 05/15/21 07/10/21 sustained-release gabapentin 300 mg capsule 600 mg PO TID 05/15/21 07/10/21 ziprasidone HCl 80 mg capsule 20 mg PO HS 05/15/21 07/10/21 Previous Rx's Medication Instructions Recorded ALBUTEROL SULFATE HFA 2 puff inhalation QID #3 ea 12/26/19 methylphenidate HCl 20 mg tablet 40 mg PO BID #60 tabs 12/26/19 trazodone 150 mg tablet 150 mg PO QHS PRN insomnia #30 tabs 12/26/19 Allergies Allergy/AdvReac Type Severity Reaction Status Date / Time onion Allergy Intermediate Hives Verified 07/10/21 08:45 General Stated Complaint: GenMedical CHUYITA: 4 Review of Systems Narrative: ROS - unable to obtain in a reliable facshion given that the patient is agitated and poorly cooperative PFSH All Active Problems Medication side effects (Acute) Abdominal pain (Acute) Paranoia (Acute) Medication requested (Acute) Transaminitis (Acute) Bipolar disorder (Acute) Paranoid (Acute) Herniated disc (Acute) Low back pain (Acute) IV drug abuse (Chronic) Medical History Abscess of left hand ADHD Amnestic state Anxiety Depression Paranoid ideation Psychosis Surgical History History of surgery on arm Presence of surgical screw in left hand S/P right rotator cuff repair Family History Mother Heart disease Father Diabetes Brother Diabetes Hypertension Cancer pancreatic, liver and lung Brother Diabetes Brother Diabetes Sister Cancer pancreatic cancer Social History Smoking/Tobacco Use Status: Current-Occasional Tobacco Type: cigarettes Smoking risk assessment performed?: Yes Alcohol Intake: current Alcohol Intake frequency: a few times a month Alcohol type: beer Drug use: Occasionally Substance use type: marijuana, crack/cocaine and IV drugs Details: No longer uses IV drugs. Last smoked marijuana today. Patient reports crack use about two hours ago. Would not reports alcohol use. Do you feel safe at home: Yes Do you feel safe in your relationship?: Yes Exam Narrative Exam Narrative: Awake alert oriented x3. Pressured speech. Paranoid ideation. Redirectable PERRLA EOMI MMManicteric Supple neck Respiratory work of breathing normal Skin no rashes Neuro grossly intact Extremities full range of motion upper and lower 5/5 strength Psych agitated, pressured speech, restless, as well as paranoid and irritable, his affect is animated but not hostile, attitude is reserved, his thought process perseverating with loose associations of paranoid persecution, insight and judgment are fair Course Vital Signs Vital signs: Vital Signs Temperature 37 C 07/10/21 08:39 Pulse 87 07/10/21 08:39 Respiratory Rate 18 07/10/21 08:39 Blood Pressure 141/101 H 07/10/21 08:39 Pulse Oximetry 96 07/10/21 08:39 Temperature 37 C 07/10/21 08:39 Temperature Source Temporal Artery Scan 07/10/21 08:39 Pulse 87 07/10/21 08:39 Respiratory Rate 18 07/10/21 08:39 Respiratory Effort Non-Labored 07/10/21 08:45 Blood Pressure 141/101 H 07/10/21 08:39 Blood Pressure Position Sitting 07/10/21 08:39 Pulse Oximetry 96 07/10/21 08:39 Oxygen Delivery Method Room Air 07/10/21 08:39 Oxygen Flow Rate 0 07/10/21 08:39
[2021-07-10 08:52] VITALS: RESP 18
[2021-07-10] MEDS: Gabapentin 300 MG CAP 600 MG PO (09:21)
[2021-07-10] MEDS: buPROPion-CR 150 MG TABCR 300 MG PO (09:21)
[2021-07-10] MEDS: Ziprasidone 20 MG CAP PO (09:22)
[2021-07-10] MEDS: Methylphenidate 10 MG TAB 40 MG PO (09:22)
== END 2021-07-10 09:31 | disposition home or self-care (01) ==
PROVIDERS: Emergency Provider Emergency Medicine; PCP Nurse Practitioner
DX: F22 Delusional disorders (principal)
CPT/HCPCS: 99283

== ENCOUNTER 2022-05-16 09:12 | Emergency (ER) | payer MEDICAID, SELFPAY ==
[2022-05-16 09:18] VITALS: BP 153/89; PULSE 72; RESP 16; TEMP 37; O2SAT 99
--- NOTE | 2022-05-16 09:25 | W.ED.GENAD ---
Discharge Plan Disposition Patient Disposition: Home Condition: Good Discharge Details Clinical Impression: Low back pain radiating to right leg, Cellulitis of finger of right hand Primary Care Provider: Emmanuel Momin ED Provider: Dimas Mao Home Meds and New Rx's Prescriptions: New gabapentin [Neurontin] 300 mg capsule 300 mg PO TID Qty: 90 0RF Rx Instructions: On the first day take 1 pill, on the second day take 1 pill twice daily, on the third day and for the remainder of the prescription take 1 pill 3 times a day. prednisone 50 mg tablet 50 mg PO DAILY Qty: 4 0RF lidocaine [Lidoderm] 5 % adhesive patch,medicated 1 patch Topical Q24H Qty: 15 0RF cephalexin 500 mg capsule 500 mg PO QID 7 Days Qty: 28 0RF No Action ALBUTEROL SULFATE HFA 8.5 GM HFA.AER.AD 2 puff Inhalation QID Qty: 3 0RF bupropion HCl 150 mg tablet sustained-release 12 hr 300 mg PO DAILY Qty: 30 0RF methylphenidate HCl 20 mg tablet 40 mg PO BID MDD 80 Qty: 60 0RF ziprasidone HCl [Geodon] 20 mg capsule 20 mg PO ONCE Qty: 30 0RF Rx Instructions: give with food (meal/snack) gabapentin 300 mg capsule 600 mg PO TID Qty: 180 0RF buprenorphine HCl 8 mg tablet, sublingual 16 mg sublingual DAILY Patient Comments: 04/13/22- Given at [facility] ([facility]) Aerochamber Plus Flow-Vu,S Msk 1 EACH spacer 1 ea Miscellaneous QID Rx Instructions: WITH LARGE MASK Discharge Instructions Instructions: Low Back Strain (ED) Additional Instructions: At this time your signs and symptoms are clinically consistent with a back sprain. This can cause significant pain and take a fair bit of time to heal. I expect 1 to 2 months for potential resolution. In the meantime do not lift anything greater than 5 pounds for the next 2 weeks. Avoid any significant vigorous physical activity. Perform easy gentle regular activities at home without any significant bending or lifting. Please take the steroids as directed. You have been given a prescription for Lidoderm patch. If your insurance does not cover this you can get [id number] Lidoderm patches at 4% which are almost just as effective. Please use a heating pad as often as possible on your back. Perform daily gentle stretches on your back. Please continue to take the Tylenol and Motrin. You can take 1000 mg of Tylenol every 6 hours and 600 mg of ibuprofen every 6 hours. If you notice any worsening of your symptoms, or any new symptoms such as vomiting, diarrhea, fever, chills, shortness of breath, chest pain, numbness or tingling in your groin or legs, weakness in your legs, loss of control for your bowels or bladder, or fainting , please return immediately to the emergency department for reevaluation. Please follow up with your primary care provider as soon as possible for reassessment and reevaluation. As always, it was a pleasure participating in your medical care today. Additionally you do have a small amount of infection on your finger. Please take the antibiotic as directed. It has been sent to your pharmacy on file. Referrals: Emmanuel Momin NP [Primary Care Provider] - Medical Decision Making This is a pleasant 51-year-old male with a past medical history of lumbar radiculopathy, herniated disc, bipolar disorder, previous IV drug abuse in the past, hepatitis C, paranoia, high cholesterol, who presents today for evaluation of low back pain. Patient states that he chronically takes gabapentin, however unfortunately his prescription was not able to be refilled recently. Review of his records indicates that his other medications were refilled, however unfortunately it appears that the pharmacy did not get the gabapentin prescription. In review of the note from the PCP 2 days ago it does not appear that his gabapentin was canceled further conversation. Patient has been dealing with low back pain for the last week, and it has been causing him discomfort. It radiates to his right lower extremity. Patient denies any saddle anesthesia, numbness or tingling in the groin, change in sensation when wiping. Patient denies any change in sensation during sexual intercourse, difficulty achieving or maintaining an erection or ejaculation, bowel or bladder incontinence, leakage, or retention. Patient denies any weakness in the lower extremities, atypical falls or imbalance. Additionally in his right hand he did get a small sliver and there is a small red lesion with some redness and discharge. He has been concerned about this as well for infection. He suspects he may have gotten a sliver there. He denies any fever or chills. No other complaints at this time. No other modifying factors. Physical exam demonstrates well-appearing male. Exam and history show no signs or symptoms concerning for cauda equina syndrome. No signs of central canal obstruction. No significant neurovascular compromise. Symptoms appear consistent with peripheral radiculopathy. No evidence of cord compression clinically. No indication for emergent imaging at this time. Additionally patient does have a very small area on his right hand middle finger with a small area of pus. Symptoms likely secondary to a small sliver foreign body that was previously present. No foreign body currently present now that is seen. We will start the patient on Keflex for infection prevention. We will refill the patient's gabapentin medication, however I did discuss with him that he needs to manage this closely with his primary care provider who we did see 2 days ago. We will give him steroids and Toradol and Lidoderm patch now for his lumbar go/mild radiculopathy. With no evidence of cord compression, cauda equina syndrome, or clinical symptomatology concerning for paraspinal abscess, I do not see indication for further imaging. We will give Keflex for treatment of the small skin lesion. Discussed red flags for which to return. I have extensively reviewed the treatment plan and discharge instructions with the patient. I have addressed all patient concerns at this time. The patient was made aware of what symptoms to monitor for that would warrant a return to the emergency department. Discussed the plan with the patient, they demonstrate verbal understanding and agreement with our assessment and plan at this time. The documentation in this chart was dictated using [employer] dictation software. Please excuse any dictation errors. HPI General Date/Time Provider Initiated Documentation: 05/16/22 09:16. HPI Narrative: This is a pleasant 51-year-old male with a past medical history of lumbar radiculopathy, herniated disc, bipolar disorder, previous IV drug abuse in the past, hepatitis C, paranoia, high cholesterol, who presents today for evaluation of low back pain. Patient states that he chronically takes gabapentin, however unfortunately his prescription was not able to be refilled recently. Review of his records indicates that his other medications were refilled, however unfortunately it appears that the pharmacy did not get the gabapentin prescription. In review of the note from the PCP 2 days ago it does not appear that his gabapentin was canceled further conversation. Patient has been dealing with low back pain for the last week, and it has been causing him discomfort. It radiates to his right lower extremity. Patient denies any saddle anesthesia, numbness or tingling in the groin, change in sensation when wiping. Patient denies any change in sensation during sexual intercourse, difficulty achieving or maintaining an erection or ejaculation, bowel or bladder incontinence, leakage, or retention. Patient denies any weakness in the lower extremities, atypical falls or imbalance. Additionally in his right hand he did get a small sliver and there is a small red lesion with some redness and discharge. He has been concerned about this as well for infection. He suspects he may have gotten a sliver there. He denies any fever or chills. No other complaints at this time. No other modifying factors. Related Data Home Medications Medication Instructions Recorded Confirmed inhalational spacing device 09/12/12 05/16/22 (Aerochamber Plus Flow-Vu,Small Mask) ALBUTEROL SULFATE HFA 2 puff inhalation QID #3 ea 12/26/19 05/16/22 buprenorphine HCl 8 mg sublingual 16 mg sublingual DAILY 04/13/22 05/16/22 tablet bupropion HCl 150 mg tablet,12 hr 300 mg PO DAILY #30 tabs 04/13/22 05/16/22 sustained-release gabapentin 300 mg capsule 600 mg PO TID #180 caps 04/13/22 05/16/22 methylphenidate HCl 20 mg tablet 40 mg PO BID #60 tabs 04/13/22 05/16/22 ziprasidone HCl 20 mg capsule 20 mg PO ONCE #30 caps 04/13/22 05/16/22 (Geodon) cephalexin 500 mg capsule 500 mg PO QID 7 days #28 caps 05/16/22 gabapentin 300 mg capsule 300 mg PO TID #90 caps 05/16/22 (Neurontin) lidocaine 5 % topical patch 1 patch topical Q24H #15 ea 05/16/22 (Lidoderm) prednisone 50 mg tablet 50 mg PO DAILY #4 tabs 05/16/22 Previous Rx's Medication Instructions Recorded ALBUTEROL SULFATE HFA 2 puff inhalation QID #3 ea 12/26/19 bupropion HCl 150 mg tablet,12 hr 300 mg PO DAILY #30 tabs 04/13/22 sustained-release gabapentin 300 mg capsule 600 mg PO TID #180 caps 04/13/22 methylphenidate HCl 20 mg tablet 40 mg PO BID #60 tabs 04/13/22 ziprasidone HCl 20 mg capsule 20 mg PO ONCE #30 caps 04/13/22 (Geodon) cephalexin 500 mg capsule 500 mg PO QID 7 days #28 caps 05/16/22 gabapentin 300 mg capsule 300 mg PO TID #90 caps 05/16/22 (Neurontin) lidocaine 5 % topical patch 1 patch topical Q24H #15 ea 05/16/22 (Lidoderm) prednisone 50 mg tablet 50 mg PO DAILY #4 tabs 05/16/22 Allergies Allergy/AdvReac Type Severity Reaction Status Date / Time onion Allergy Intermediate Hives Verified 05/16/22 09:23 General Stated Complaint: Nk/Back Pain CHUYITA: 4 Review of Systems All systems reviewed & are unremarkable except as noted in HPI and below PFSH All Active Problems (Updated 05/16/22 @ 09:38 by Dimas Mao DO) Paranoid (Acute) IV drug abuse (Chronic) Herniated disc (Acute) Low back pain (Acute) Bipolar disorder (Acute) Medication side effects (Acute) Screening for hyperlipidemia (Acute) Elevated liver enzymes (Acute) Low back pain radiating to right leg (Acute) Cellulitis of finger of right hand (Acute) Medical History Abscess of left hand ADHD Amnestic state Anxiety Depression Paranoid ideation Psychosis Surgical History History of surgery on arm Presence of surgical screw in left hand S/P right rotator cuff repair Family History Mother Heart disease Father Diabetes Brother Diabetes Hypertension Cancer pancreatic, liver and lung Brother Diabetes Brother Diabetes Sister Cancer pancreatic cancer Social History Smoking/Tobacco Use Status: Current-Occasional Tobacco Type: cigarettes Smoking risk assessment performed?: Yes Alcohol Intake: current Alcohol Intake frequency: a few times a month Alcohol type: beer Drug use: Occasionally Substance use type: marijuana, crack/cocaine and IV drugs Details: No longer uses IV drugs. Last smoked marijuana today. Patient reports crack use about two hours ago. Would not reports alcohol use. Do you feel safe at home: Yes Do you feel safe in your relationship?: Yes Exam Narrative Exam Narrative: 1.Const: Well-nourished, Well-developed, appearing stated age 2.Eyes: PERRL, no conjunctival injection, and symmetrical lids. 3.ENT: Atraumatic external nose and ears. Moist MM. Neck: Symmetric, trachea midline, No thyromegaly. 4.CVS: +S1/S2, No murmurs or gallops. Peripheral pulses 2+ and equal in all extremities. Brisk capillary refill in all extremities. 5.RESP: Unlabored respiratory effort. Clear to auscultation bilaterally. No wheezes rales or rhonchi 6.GI: Soft, Nontender/Nondistended, No hepatosplenomegaly. No guarding or rebound. 7.MSK: Normocephalic/Atraumatic, Extremities w/o deformity or ttp No cyanosis or clubbing, Normal movement of all extremities. No midline tenderness to palpation over the CTLS spine. There is evidence of a mild right-sided paraspinal spasm, and tenderness in the right lower paraspinal area as well as over the SI joint. No step-off sign. No osseous abnormalities. Normal ROM in flexion, extension, side bend, and rotation. Patient has +5 out of 5 strength in the lower extremities in dorsiflexion and plantarflexion, knee flexion and extension, hip flexion and extension. Normal strength for dorsiflexion and plantar flexion of the great toe bilaterally. There is +2 over 2 dorsalis pedis pulses bilaterally. There is normal sensation to the skin with light touch at the foot, knee, and hip. Normal saddle sensation. Good sensation over the deep sural nerve area bilaterally. Rectal exam demonstrates good rectal tone with excellent wilmer-rectal sensation. Reflexes are +2 over 4 in the patellar reflex bilaterally. +5 out of 5 strength in the medial, ulnar, radial nerve distribution bilaterally in the hands as well as intact light touch sensation to these dermatomes on the hands Additionally over the right hand middle finger there is a small red lesion on the medial aspect which was deroofed and a small amount of pus came out. No foreign body can be seen. Pus was milked from the area. No spreading redness. No sausage shaped digit. No pain with passive her active extension of flexion. 8.Skin: Warm, Dry. Please see musculoskeletal 9.Neuro: delivery professional II-XII grossly intact. Sensation grossly intact, no focal neurologic deficits. 10.Psych: (AAO) x3. Appropriate mood and affect Course Vital Signs Vital signs: Vital Signs Temperature 37.0 C 05/16/22 09:18 Pulse 72 05/16/22 09:18 Respiratory Rate 16 05/16/22 09:18 Blood Pressure 153/89 H 05/16/22 09:18 Pulse Oximetry 99 05/16/22 09:18 Temperature 37.0 C 05/16/22 09:18 Temperature Source Oral 05/16/22 09:18 Pulse 72 05/16/22 09:18 Respiratory Rate 16 05/16/22 09:18 Respiratory Effort Normal 05/16/22 09:22 Blood Pressure 153/89 H 05/16/22 09:18 Blood Pressure Position Sitting 05/16/22 09:18 Pulse Oximetry 99 05/16/22 09:18 Oxygen Delivery Method Room Air 05/16/22 09:18 Oxygen Flow Rate 0 05/16/22 09:18 Pain Level 10 05/16/22 09:22 PAWSS Have you Been Recently Intoxicated or Drunk Within the Last 30 days?: No Have you Ever Experienced Previous Episodes of Alcohol Withdrawal?: No Have you ever Experienced Withdrawal Seizures?: No Have you ever Experienced Delirium Tremens(DT)s?: No Have you ever undergone Alcohol Rehabilitation Treatment (i.e, inpt ot outpatient treatment programs)?: No Have you ever Experienced Blackouts?: No Have you ever Combined Alcohol with other Downers within the last 90 days?: No Have you ever Combined Alcohol with any other Substance of Abuse during the last 90 days?: No Result: 0
[2022-05-16] MEDS: Ketorolac 30 MG/ML VIAL IM (09:30)
[2022-05-16] MEDS: Lidocaine 5% Patch 1 PATCH TP (09:30)
[2022-05-16] MEDS: predniSONE 20 MG TAB 60 MG PO (09:31)
== END 2022-05-16 09:39 | disposition home or self-care (01) ==
PROVIDERS: Emergency Provider Student in an Organized Health Care Education/Training Program; PCP Nurse Practitioner Family
DX: M54.50 Low back pain, unspecified (principal); M79.604 Pain in right leg; L03.011 Cellulitis of right finger
CPT/HCPCS: 96372; 99283; J1885; J7512

== ENCOUNTER 2022-05-21 03:28 | Emergency (ER) | payer MEDICAID, SELFPAY ==
[2022-05-21 03:31] VITALS: BP 127/94; PULSE 84; RESP 20; TEMP 36.2; O2SAT 97
--- NOTE | 2022-05-21 03:49 | ED.GENADUL_ITS ---
Discharge Plan Disposition Patient Disposition: Home Discharge Details Clinical Impression: Back pain Primary Care Provider: Emmanuel Momin ED Provider: Mir Godinez Home Meds and New Rx's Prescriptions: New ziprasidone HCl 20 mg capsule 20 mg PO DAILY Qty: 30 0RF Rx Instructions: give with food (meal/snack) methylphenidate HCl 20 mg tablet 20 mg PO BID Qty: 60 0RF bupropion HCl 300 mg tablet extended release 24 hr 300 mg PO DAILY Qty: 30 0RF No Action ALBUTEROL SULFATE HFA 8.5 GM HFA.AER.AD 2 puff Inhalation QID Qty: 3 0RF bupropion HCl 150 mg tablet sustained-release 12 hr 300 mg PO DAILY Qty: 30 0RF methylphenidate HCl 20 mg tablet 40 mg PO BID MDD 80 Qty: 60 0RF ziprasidone HCl [Geodon] 20 mg capsule 20 mg PO ONCE Qty: 30 0RF Rx Instructions: give with food (meal/snack) gabapentin 300 mg capsule 600 mg PO TID Qty: 180 0RF buprenorphine HCl 8 mg tablet, sublingual 16 mg sublingual DAILY Patient Comments: 04/13/22- Given at [facility] ([facility]) Aerochamber Plus Flow-Vu,S Msk 1 EACH spacer 1 ea Miscellaneous QID Rx Instructions: WITH LARGE MASK gabapentin [Neurontin] 300 mg capsule 300 mg PO TID Qty: 90 0RF Rx Instructions: On the first day take 1 pill, on the second day take 1 pill twice daily, on the third day and for the remainder of the prescription take 1 pill 3 times a day. prednisone 50 mg tablet 50 mg PO DAILY Qty: 4 0RF lidocaine [Lidoderm] 5 % adhesive patch,medicated 1 patch Topical Q24H Qty: 15 0RF cephalexin 500 mg capsule 500 mg PO QID 7 Days Qty: 28 0RF Discharge Instructions Instructions: Back Pain (ED) Additional Instructions: Please follow-up with your primary care physician. Medical Decision Making 51-year-old male history of prior psychiatric illness, prior disc herniation and radiculopathy, presents with atraumatic right lower back pain rating down right leg that began after bending over within the last day. Patient rode his bike to the emergency department this evening. No recent trauma. No midline spinal tenderness afebrile nontoxic full range of motion 5 out of 5 strength upper and lower extremities. Symptoms consistent with right lumbar radiculopathy likely sciatica. Low suspicion for spinal epidural abscess hematoma or spinal mass cauda equina or acute spinal cord compression. Trial of analgesia anti- inflammatory medications, patient requested Lyrica by name. Has been on gabapentin in the past. Patient also requesting refill for his prescriptions and a sandwich. HPI General Date/Time Provider Initiated Documentation: 05/21/22 03:39 . HPI Narrative: 51-year-old male history of prior psychiatric illness, prior herniated disc and recurrent lower back pain presents with atraumatic right lower back pain rating down his right leg. Denies discrete injury however endorses symptoms started after he bent over to pick something up. Denies bowel or bladder issues. Denies falls. Patient requesting refill for all of his prescription medications as well as a sandwich. Related Data Home Medications Medication Instructions Recorded Confirmed inhalational spacing device 09/12/12 05/16/22 (Aerochamber Plus Flow-Vu,Small Mask) ALBUTEROL SULFATE HFA 2 puff inhalation QID #3 ea 12/26/19 05/21/22 buprenorphine HCl 8 mg sublingual 16 mg sublingual DAILY 04/13/22 05/21/22 tablet bupropion HCl 150 mg tablet,12 hr 300 mg PO DAILY #30 tabs 04/13/22 05/16/22 sustained-release gabapentin 300 mg capsule 600 mg PO TID #180 caps 04/13/22 05/16/22 methylphenidate HCl 20 mg tablet 40 mg PO BID #60 tabs 04/13/22 05/16/22 ziprasidone HCl 20 mg capsule 20 mg PO ONCE #30 caps 04/13/22 05/21/22 (Geodon) cephalexin 500 mg capsule 500 mg PO QID 7 days #28 caps 05/16/22 gabapentin 300 mg capsule 300 mg PO TID #90 caps 05/16/22 05/21/22 (Neurontin) lidocaine 5 % topical patch 1 patch topical Q24H #15 ea 05/16/22 05/21/22 (Lidoderm) prednisone 50 mg tablet 50 mg PO DAILY #4 tabs 05/16/22 05/21/22 bupropion HCl 300 mg 24 hr tablet, 300 mg PO DAILY #30 tabs 05/21/22 extended release methylphenidate HCl 20 mg tablet 20 mg PO BID #60 tabs 05/21/22 ziprasidone HCl 20 mg capsule 20 mg PO DAILY #30 caps 05/21/22 Previous Rx's Medication Instructions Recorded ALBUTEROL SULFATE HFA 2 puff inhalation QID #3 ea 12/26/19 bupropion HCl 150 mg tablet,12 hr 300 mg PO DAILY #30 tabs 04/13/22 sustained-release gabapentin 300 mg capsule 600 mg PO TID #180 caps 04/13/22 methylphenidate HCl 20 mg tablet 40 mg PO BID #60 tabs 04/13/22 ziprasidone HCl 20 mg capsule 20 mg PO ONCE #30 caps 04/13/22 (Geodon) cephalexin 500 mg capsule 500 mg PO QID 7 days #28 caps 05/16/22 gabapentin 300 mg capsule 300 mg PO TID #90 caps 05/16/22 (Neurontin) lidocaine 5 % topical patch 1 patch topical Q24H #15 ea 05/16/22 (Lidoderm) prednisone 50 mg tablet 50 mg PO DAILY #4 tabs 05/16/22 bupropion HCl 300 mg 24 hr tablet, 300 mg PO DAILY #30 tabs 05/21/22 extended release methylphenidate HCl 20 mg tablet 20 mg PO BID #60 tabs 05/21/22 ziprasidone HCl 20 mg capsule 20 mg PO DAILY #30 caps 05/21/22 Allergies Allergy/AdvReac Type Severity Reaction Status Date / Time onion Allergy Intermediate Hives Verified 05/21/22 03:39 General Stated Complaint: Nk/Back Pain CHUYITA: 3 Review of Systems Narrative: Review of Systems Constitutional: negative Eyes: negative ENT: negative Cardiovascular: negative Respiratory: negative Gastrointestinal: negative : negative Musculoskeletal: Back pain Skin: negative Neurologic: negative Psych: negative PFSH All Active Problems (Updated 05/21/22 @ 03:59 by Mir Godinez MD) Paranoid (Acute) IV drug abuse (Chronic) Herniated disc (Acute) Low back pain (Acute) Bipolar disorder (Acute) Medication side effects (Acute) Screening for hyperlipidemia (Acute) Elevated liver enzymes (Acute) Low back pain radiating to right leg (Acute) Cellulitis of finger of right hand (Acute) Back pain (Acute) Medical History Abscess of left hand ADHD Amnestic state Anxiety Depression Paranoid ideation Psychosis Surgical History History of surgery on arm Presence of surgical screw in left hand S/P right rotator cuff repair Family History Mother Heart disease Father Diabetes Brother Diabetes Hypertension Cancer pancreatic, liver and lung Brother Diabetes Brother Diabetes Sister Cancer pancreatic cancer Social History Smoking/Tobacco Use Status: Current-Occasional Tobacco Type: cigarettes Smoking risk assessment performed?: Yes Alcohol Intake: current Alcohol Intake frequency: a few times a month Alcohol type: beer Drug use: Occasionally Substance use type: IV drugs Details: No longer uses IV drugs. Last smoked marijuana today. Patient reports crack use about two hours ago. Would not reports alcohol use. Do you feel safe at home: Yes Do you feel safe in your relationship?: Yes Exam Narrative Exam Narrative: Physical Examination General: alert, awake, cooperative, resting comfortably, no acute distress HEENT: normocephalic, atraumatic; PERRL, EOM intact, conjunctiva normal; no nasal discharge; moist mucous membranes, oral and pharyngeal mucosa normal, tolerating secretions Neck: supple, trachea midline; full ROM Chest: normal to inspection Respiratory: normal respiratory effort, speaking in full sentences, clear to auscultation, no wheezing, rales or rhonchi Cardiac: regular rate, regular rhythm, S1S2 intact, no murmurs rubs or gallops GI: abdomen soft, non-tender, non-distended; no palpable mass or hepato splenomegaly Back: No midline spinal tenderness Skin: no lesions, rashes or trauma appreciated Neuro: AAOx3, normal speech, moving all extremities; 5 out of 5 strength upper and lower extremities Extremities: Full range of motion no signs of deformity Psych: Appropriate mood and affect Course Vital Signs Vital signs: Vital Signs Temperature 36.2 C L 05/21/22 03:31 Pulse 84 05/21/22 03:31 Respiratory Rate 20 05/21/22 03:31 Blood Pressure 127/94 H 05/21/22 03:31 Pulse Oximetry 97 05/21/22 03:31 Temperature 36.2 C L 05/21/22 03:31 Pulse 84 05/21/22 03:31 Respiratory Rate 20 05/21/22 03:31 Respiratory Effort Normal 05/21/22 03:34 Blood Pressure 127/94 H 05/21/22 03:31 Blood Pressure Position Sitting 05/21/22 03:31 Pulse Oximetry 97 05/21/22 03:31 Oxygen Delivery Method Room Air 05/21/22 03:31 Oxygen Flow Rate 0 05/21/22 03:31 Pain Level 8 05/21/22 03:34
[2022-05-21] MEDS: predniSONE 20 MG TAB PO (03:55)
[2022-05-21] MEDS: Ketorolac 15 MG/ML VIAL IM (03:55)
[2022-05-21] MEDS: Pregabalin 25 MG CAP PO (04:03)
== END 2022-05-21 04:14 | disposition home or self-care (01) ==
PROVIDERS: Emergency Provider Emergency Medicine; PCP Nurse Practitioner Family
DX: M54.50 Low back pain, unspecified (principal)
CPT/HCPCS: 96372; 99283; J1885; J7512

== ENCOUNTER 2022-06-15 15:42 | Emergency (ER) | payer MEDICAID, SELFPAY ==
[2022-06-15 15:45] VITALS: BP 143/89; PULSE 67; RESP 15; TEMP 37.2; O2SAT 99
--- OUTSIDE RECORDS SUMMARY | 2022-06-15 15:50 | XMS_ITS | Continuity of Care Document ---
Author Name Unknown Address [address] [place] [id number] Phone Organization [facility] Address [address] [place] [address] Phone Care Team Providers Care Junior Engineer Name Role Phone PCP, Not Given Primary Care Provider Unavailabl e Chief Complaint and Reason for Visit Chief Complaint FOOT PAIN Social History Smoking Status Unknown if ever smoked Additional Data Assigned Sex Male Problems Active Problems Medical Problem Onset Date Status Cellulitis of right anterior lower leg Active Relevant Diagnostic Tests and/or Laboratory Data Laboratory Results Test Date/Time Result Interpretation Reference Range Result Comment Performing Site White Blood Count September 15, 2020 3:20pm 8.47 1000/mm3 4.8-10.8 MA[facility] [address] [place] [address]116 Red Blood Count September 15, 2020 3:20pm 4.12 M/mm3 4.70-6.00 MA[facility] [address] [place] [address] 73500 Hemoglobin September 15, 2020 3:20pm 13.6 g/dL 14.0-18.0 [facility] [address] [place] [address] 61446 Hematocrit September 15, 2020 3:20pm 40.0 % 42-52 [facility] [address] [place] [address] 52097 Mean Corpuscular Volume September 15, 2020 3:20pm 97.1 fL 80.0-94.0 [facility] [address] [place] [address] 55496 Mean Corpuscular Hemoglobin September 15, 2020 3:20pm 33.0 pg 27-31 [facility] [address] [place] [address] 11626 Mean Corpuscular Hemoglobin Concent September 15, 2020 3:20pm 34.0 g/dL 33-37 [facility] [address] [place] [address] 25326 Red Cell Distribution Width September 15, 2020 3:20pm 11.1 % 11.5-14.5 [facility] [address] [place] [address] 80343 Platelet Count September 15, 2020 3:20pm 197 1000/mm3 140-440 [facility] [address] [place] [address] 49574 Mean Platelet Volume September 15, 2020 3:20pm 9.4 fL 7.4-10.4 [facility] [address] [place] [address] 45991 Neutrophils (%) (Auto) September 15, 2020 3:20pm 66.5 % 40.0-72.0 [facility] [address] [place] [address] 15924 Lymphocytes (%) (Auto) September 15, 2020 3:20pm 22.8 % 17-45 [facility] [address] [place] [address] 19342 Monocytes (%) (Auto) September 15, 2020 3:20pm 7.0 % 3-11 [address] [address] [place] [address] 37471 Eosinophils (%) (Auto) September 15, 2020 3:20pm 3.1 % 0-[address] [place] [address] 27295 Basophils (%) (Auto) September 15, 2020 3:20pm 0.4 % 0-[address] [facility] [address] [place] [address] 92185 Immature Granulocyte % (Auto) September 15, 2020 3:20pm 0.2 % 0-[address] [facility] [address] [place] [address] 15960 Neutrophils # (Auto) September 15, 2020 3:20pm 5.64 1000/mm3 1.4-6.5 MAIN LAB [address] [place] [address] 39050 Lymphocytes # (Auto) September 15, 2020 3:20pm 1.93 1000/mm3 1.2-3.4 MAIN LAB [address] [place] [address] 32426 Monocytes # (Auto) September 15, 2020 3:20pm 0.59 1000/mm3 0.0-0.8 MAIN LAB [address] [place] [address] 22465 Eosinophils # (Auto) September 15, 2020 3:20pm 0.26 1000/mm3 0.0-0.[address] [facility] [address] Basophils # (Auto) September 15, 2020 3:20pm 0.03 1000/mm3 0.0-0.[address] [facility] [address] Absolute Immature Granulocyte (auto September 15, 2020 3:20pm 0.0 0-[address] [facility] [address] Differential Method September 15, 2020 3:20pm Automated MAIN LAB [address] [facility] [address] Vital Signs Vital Reading Result Reference Range Collection Date/Time Weight 113.39 kg September 15 2:41pm Body Temperature 98.4 [degF] 97.6-99.6 September 2:41pm Heart Rate 66 /min 60-100 September 15 2:57pm Respiratory rate 19 /min 12-24 September 2:57pm Oxygen saturation by Pulse oximetry 98 % 95-100 September 15, 2020 2: 57pm BP Systolic 156 mm[Hg] 100-140 September 15 2:41pm BP Diastolic 86 mm[Hg] 50-85 September 15 2:41pm Advance Directives Advance Directive Response Recorded Date/ Time Does patient have an Advanced Directive? No September 15, 2020 3:17pm Do we have a copy on file here at [facility]? Unknown September 15, 2020 3:17pm Pt has a Living Will? No September 3:17pm Do we have a copy on file here at [facility]? Unknown September 15, 2020 3:17pm Pt has a Power of Bicycle Taxi Driver? No 2020 3:17pm Do we have a copy on file here at [facility]? Unknown September 15, 2020 3:17pm Insurance Providers Guarantor OF THE Address [address] [facility] [address] Contact Info. Home Phone: Payer Policy Id Coverage Id Subscriber's Name Subscriber Id Effective Date Expiration Date COMM [employer] [id number] [facility] [id number] SELF PAY Self N/A [employer] [id number] [facility] [id number] Encounters Encounter Location(s) Arrival/Admit Date Discharge/Depart Date Provider(s) Departed Emergency [facility]-Emergency Department September 15, 2020 2:23pm September 15, 2020 4:40pm null Plan of Treatment Future Tests Future scheduled test information is unavailable Pending Tests Pending diagnostic test information is unavailable Future Visits Future appointment information is unavailable Referrals to Other Providers Reason for Referral Referral Start Date Provider Provider Contact Information Provider Address [facility] Work Phone: [phone] [facility] [address] Future Procedures Future procedure information is unavailable Future Medications Future medication information is unavailable Patient Instructions Cellulitis (Skin Infection), Adult (DC) Hospital Discharge Instructions Additional Instructions Elevate the leg to decrease pain and swelling. Take ibuprofen 800 mg every 8 hours with food as needed for pain. Take the cephalexin 500mg 1 tab 4x per day for 7 days. If you develop a fever, or the redness increases beyond what is present today then please return to the emergency department.
--- OUTSIDE RECORDS SUMMARY | 2022-06-15 15:50 | XMS_ITS | Continuity of Care Document ---
Author Name [facility] Address [address] [place] [id number] Organization [facility] Address [address] [place] [address] Care Team Providers Care Gas Combustion Engineer Name Role Phone PCP, Not Given Primary Care Physician Unavailab le Allergies, Adverse Reactions, Alerts No allergy information available. Medications No medication information available. Problem List Active Problems Medical Problem Onset Date Status Cellulitis of right anterior lower leg Active Procedures No known history of procedures. Relevant Diagnostic Tests and/or Laboratory Data Laboratory Results Test Date/Time Result Interp. Ref. Range Result Co mment White Blood Count September 15, 2020 3:20pm 8.47 1000/mm3 4.8-10.8 Red Blood Count September 15, 2020 3:20pm 4.12 M/mm3 Low 4.70-6.00 Hemoglobin September 15, 2020 3:20pm 13.6 g/dL Low 14.0-18.0 Hematocrit September 15, 2020 3:20pm 40.0 % Low 42-52 Mean Corpuscular Volume September 15, 2020 3:20pm 97.1 fL High 80.0-94.0 Mean Corpuscular Hemoglobin September 15, 2020 3:20pm 33.0 pg High 27-31 Mean Corpuscular Hemoglobin Concent September 15, 2020 3:20pm 34.0 g/dL 33-37 Red Cell Distribution Width September 15, 2020 3:20pm 11.1 % Low 11.5-14.5 Platelet Count September 15, 2020 3:20pm 197 1000/mm3 140-440 Mean Platelet Volume September 15, 2020 3:20pm 9.4 fL 7.4-10.4 Neutrophils (%) (Auto) September 15, 2020 3:20pm 66.5 % 40.0-72.0 Lymphocytes (%) (Auto) September 15, 2020 3:20pm 22.8 % 17-45 Monocytes (%) (Auto) September 15, 2020 3:20pm 7.0 % 3-11 Eosinophils (%) (Auto) September 15, 2020 3:20pm 3.1 % High 0-3 Basophils (%) (Auto) September 15, 2020 3:20pm 0.4 % 0-1 Immature Granulocyte % (Auto) September 15, 2020 3:20pm 0.2 % 0-1 Neutrophils # (Auto) September 15, 2020 3:20pm 5.64 1000/mm3 1.4-6.5 Lymphocytes # (Auto) September 15, 2020 3:20pm 1.93 1000/mm3 1.2-3.4 Monocytes # (Auto) September 15, 2020 3:20pm 0.59 1000/mm3 0.0-0.8 Eosinophils # (Auto) September 15, 2020 3:20pm 0.26 1000/mm3 0.0-0.7 Basophils # (Auto) September 15, 2020 3:20pm 0.03 1000/mm3 0.0-0.1 Absolute Immature Granulocyte (auto September 15, 2020 3:20pm 0.0 0-1 Differential Method September 15, 2020 3:20pm Automated Advance Directives Advance Directive Response Recorded Date/ Time Do we have a copy on file here at [facility]? Unknown September 15, 2020 3:17pm Does patient have an Advanced Directive? No September 15, 2020 3:17pm Pt has a Living Will? No September 15, 2020 3:17pm Pt has a Power of Players Assistant? No Augu 2020 3:17pm Chief Complaint and Reason for Visit Encounter Admit Date Chief Complaint Reason for V isit Departed Emergency September 15, 2020 2:23pm FOOT PAIN Hospital Discharge Instructions Additional Discharge Instructions Elevat e the leg to decrease pain and swelling. Take ibuprofen 800 mg every 8 hours with food as needed for pain. Take the cephalexin 500mg 1 tab 4x per day for 7 days. If you develop a fever, or the redness increases beyond what is present today then please return to the emergency department. Instruction/Education Provided Celluliti s (Skin Infection), Adult (DC) Encounters Encounter Facility Location Admit/Visit Date Discharge/Departure Date Attending Provider Departed Emergency [facility] Emergency Department September 15, 2020 2:23pm September 15, 2020 4:40pm Functional Status No known functional status. Immunizations No known immunizations. Plan of Care Instructions Cellulitis (Skin Infection), Adult (DC) Social History No known social history. Vital Signs Vital Reading Result Reference Range Collection Date/Time Weight 113.398 kg September 15, 2020 2:41pm Temperature 98.4 F 97.6 F-99.6 F September 15 2:41pm Pulse 66 BPM 60-100 September 15, 2020 2:57pm Respiration 19 RPM 12-24 September 15, 2020 2:57pm Pulse Oximetry 98 % 95-100 September 15 2:57pm Blood Pressure Systolic 156 100-[address] 2020 2:41pm Blood Pressure Diastolic 86 50-85 Sep ust 2020 2:41pm
--- NOTE | 2022-06-15 16:50 | W.ED.GENAD ---
Discharge Plan Disposition Patient Disposition: Home Condition: Stable Discharge Details Clinical Impression: Encounter for medication refill Primary Care Provider: Emmanuel Momin ED Provider: Miguel Duarte Home Meds and New Rx's Prescriptions: Continued ALBUTEROL SULFATE HFA 8.5 GM HFA.AER.AD 2 puff Inhalation QID Qty: 3 0RF buprenorphine HCl 8 mg tablet, sublingual 24 mg sublingual DAILY Patient Comments: 04/13/22- Given at [facility] (DME) Aerochamber Plus Flow-Arnoldo,S Msk 1 EACH spacer 1 ea Miscellaneous QID Rx Instructions: WITH LARGE MASK bupropion HCl 150 mg tablet sustained-release 12 hr 300 mg PO DAILY Qty: 30 0RF Patient Comments: DUPLICATE 06/15/22 CT gabapentin [Neurontin] 300 mg capsule 300 mg PO TID Qty: 90 0RF Patient Comments: DUPLICATE 06/15/22 CT methylphenidate HCl 20 mg tablet 20 mg PO BID MDD 2 tabs Qty: 30 0RF Patient Comments: DUPLICATE 06/15/22 CT ziprasidone HCl [Geodon] 20 mg capsule 20 mg PO DAILY Qty: 30 0RF Patient Comments: DUPLICATE 06/15/22 CT Rx Instructions: give with food (meal/snack) lidocaine [Lidoderm] 5 % adhesive patch,medicated 1 patch Topical Q24H Qty: 15 0RF pregabalin [Lyrica] 50 mg capsule 50 mg PO DAILY Qty: 15 0RF Discontinued methylphenidate HCl 20 mg tablet 40 mg PO BID MDD 80 Qty: 60 0RF gabapentin 300 mg capsule 600 mg PO TID Qty: 180 0RF prednisone 50 mg tablet 50 mg PO DAILY Qty: 4 0RF Patient Comments: RX COMPLETE 06/15/22 CT ziprasidone HCl 20 mg capsule 20 mg PO DAILY Qty: 30 0RF Rx Instructions: give with food (meal/snack) bupropion HCl 300 mg tablet extended release 24 hr 300 mg PO DAILY Qty: 30 0RF Discharge Instructions Instructions: Medicine Refill (ED) Additional Instructions: Medications were refilled today by your primary care physician office. Please contact your primary care physician office tomorrow to be seen in follow-up. Medication prescription should be filled by your primary care physician going forward. Please seek care in the ER for emergent conditions. Referrals: [facility] [Outside] Emmanuel Momin, EXHAUSTER ENGINEER [Primary Care Provider] - Medical Decision Making 51-year-old male here again for medication refill. I called the patient's primary care physician office and spoke with covering physician Dr. Valencia. Discussed ED presentation and course, he will refill medications with short prescription sent to pharmacy and will require the patient be evaluated for continued treatment. Usual customary discharge instructions were reviewed with the patient. He is encouraged to call his PCP office tomorrow to arrange timely follow-up. HPI General Mode of arrival: ambulatory. Date/Time Provider Initiated Documentation: 06/15/22 15:47. Limitations to Documentation: no limitations. Information obtained by: patient. HPI Narrative: 51-year-old male with multiple medical problems presents with request for medication refill. Patient notes he has run out of his gabapentin, methylphenidate, bupropion, and Geodon. He is requesting refill of these medications. Of note, patient was here for same complaint 05/21/2022 and was provided refill of medications at that time. Related Data Home Medications Medication Instructions Recorded Confirmed inhalational spacing device 09/12/12 05/16/22 (Aerochamber Plus Flow-Vu,Small Mask) ALBUTEROL SULFATE HFA 2 puff inhalation QID #3 ea 12/26/19 06/15/22 buprenorphine HCl 8 mg sublingual 24 mg sublingual DAILY 04/13/22 06/15/22 tablet lidocaine 5 % topical patch 1 patch topical Q24H #15 ea 05/16/22 06/15/22 (Lidoderm) pregabalin 50 mg capsule (Lyrica) 50 mg PO DAILY #15 caps 05/21/22 06/15/22 bupropion HCl 150 mg tablet,12 hr 300 mg PO DAILY #30 tabs 06/15/22 sustained-release gabapentin 300 mg capsule 300 mg PO TID #90 caps 06/15/22 (Neurontin) methylphenidate HCl 20 mg tablet 20 mg PO BID #30 tabs 06/15/22 ziprasidone HCl 20 mg capsule 20 mg PO DAILY #30 caps 06/15/22 (Geodon) Previous Rx's Medication Instructions Recorded ALBUTEROL SULFATE HFA 2 puff inhalation QID #3 ea 12/26/19 lidocaine 5 % topical patch 1 patch topical Q24H #15 ea 05/16/22 (Lidoderm) pregabalin 50 mg capsule (Lyrica) 50 mg PO DAILY #15 caps 05/21/22 bupropion HCl 150 mg tablet,12 hr 300 mg PO DAILY #30 tabs 06/15/22 sustained-release gabapentin 300 mg capsule 300 mg PO TID #90 caps 06/15/22 (Neurontin) methylphenidate HCl 20 mg tablet 20 mg PO BID #30 tabs 06/15/22 ziprasidone HCl 20 mg capsule 20 mg PO DAILY #30 caps 06/15/22 (Geodon) Allergies Allergy/AdvReac Type Severity Reaction Status Date / Time onion Allergy Intermediate Hives Verified 06/15/22 15:46 General Stated Complaint: RX Refill CHUYITA: 5 Review of Systems Musculoskeletal Comments: Back pain with sciatica unchanged chronic PFSH All Active Problems (Updated 06/15/22 @ 16:50 by Miguel Duarte MD) Encounter for medication refill (Acute) 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 -hb Psychosis (Acute) 06/08/2022. [facility] Paranoid (Acute) IV drug abuse (Chronic) Herniated disc (Acute) Low back pain (Acute) Bipolar disorder (Acute) Medication side effects (Acute) Screening for hyperlipidemia (Acute) Elevated liver enzymes (Acute) Low back pain radiating to right leg (Acute) Cellulitis of finger of right hand (Acute) Back pain (Acute) Medical History Abscess of left hand ADHD Amnestic state Anxiety Depression Paranoid ideation Psychosis Surgical History History of surgery on arm Presence of surgical screw in left hand S/P right rotator cuff repair Family History Mother Heart disease Father Diabetes Brother Diabetes Hypertension Cancer pancreatic, liver and lung Brother Diabetes Brother Diabetes Sister Cancer pancreatic cancer Social History Smoking/Tobacco Use Status: Current-Occasional Tobacco Type: cigarettes Smoking risk assessment performed?: Yes Alcohol Intake: current Alcohol Intake frequency: a few times a month Alcohol type: beer Drug use: Occasionally Substance use type: IV drugs Details: No longer uses IV drugs. Last smoked marijuana today. Patient reports crack use about two hours ago. Would not reports alcohol use. Do you feel safe at home: Yes Do you feel safe in your relationship?: Yes Exam Const General: cooperative Nutritional Appearance: well nourished Orientation: alert Neuro General: patient alert, patient awake and patient oriented x3 Course Vital Signs Vital signs: Vital Signs Temperature 37.2 C 06/15/22 15:45 Pulse 67 06/15/22 15:45 Respiratory Rate 15 06/15/22 15:45 Blood Pressure 143/89 H 06/15/22 15:45 Pulse Oximetry 99 06/15/22 15:45 Temperature 37.2 C 06/15/22 15:45 Temperature Source Temporal Artery Scan 06/15/22 15:45 Pulse 67 06/15/22 15:45 Respiratory Rate 15 06/15/22 15:45 Respiratory Effort Normal 06/15/22 15:49 Blood Pressure 143/89 H 06/15/22 15:45 Blood Pressure Position Sitting 06/15/22 15:45 Pulse Oximetry 99 06/15/22 15:45 Oxygen Delivery Method Room Air 06/15/22 15:45 Oxygen Flow Rate 0 06/15/22 15:45 Pain Level 0 06/15/22 15:45
[2022-06-15 16:58] VITALS: BP 120/86; PULSE 68; TEMP 36.3; O2SAT 97
== END 2022-06-15 17:07 | disposition home or self-care (01) ==
PROVIDERS: Emergency Provider Student in an Organized Health Care Education/Training Program; PCP Nurse Practitioner Family
DX: Z76.0 Encounter for issue of repeat prescription (principal)
CPT/HCPCS: 99281; 99282

== ENCOUNTER 2022-06-21 09:16 | Emergency (ER) | payer MEDICAID, SELFPAY ==
[2022-06-21 09:20] VITALS: BP 146/80; PULSE 74; RESP 18; O2SAT 98
--- NOTE | 2022-06-21 10:14 | W.ED.GENAD ---
Discharge Plan Disposition Patient Disposition: Home Condition: Stable Discharge Details Clinical Impression: Chronic low back pain Primary Care Provider: Emmanuel Momin ED Provider: Miguel Duarte Home Meds and New Rx's Prescriptions: Continued ALBUTEROL SULFATE HFA 8.5 GM HFA.AER.AD 2 puff Inhalation QID Qty: 3 0RF buprenorphine HCl 8 mg tablet, sublingual 24 mg sublingual DAILY Patient Comments: 04/13/22- Given at [facility]/pps (DME) Aerochamber Plus Flow-Arnoldo,S Msk 1 EACH spacer 1 ea Miscellaneous QID Rx Instructions: WITH LARGE MASK bupropion HCl 150 mg tablet sustained-release 12 hr 300 mg PO DAILY Qty: 30 0RF Patient Comments: DUPLICATE 06/15/22 CT gabapentin [Neurontin] 300 mg capsule 300 mg PO TID Qty: 90 0RF Patient Comments: DUPLICATE 06/15/22 CT methylphenidate HCl 20 mg tablet 20 mg PO BID MDD 2 tabs Qty: 30 0RF Patient Comments: DUPLICATE 06/15/22 CT ziprasidone HCl [Geodon] 20 mg capsule 20 mg PO DAILY Qty: 30 0RF Patient Comments: DUPLICATE 06/15/22 CT Rx Instructions: give with food (meal/snack) lidocaine [Lidoderm] 5 % adhesive patch,medicated 1 patch Topical Q24H Qty: 15 0RF Patient Comments: no longer taking pregabalin [Lyrica] 50 mg capsule 50 mg PO DAILY Qty: 15 0RF Patient Comments: no longer taking Discharge Instructions Instructions: Back Pain (ED) Additional Instructions: Please follow-up with your bumper and painter and primary care physician as scheduled. Please contact your primary care physician to arrange follow-up TODAY. It is important that you discuss prior back imaging with your primary care physician. If pain persist additional repeat diagnostic imaging may be necessary. Return to the ER immediately for any worsening or new concerning symptoms. Referrals: Emmanuel Momin, LIBRARY CIRCULATION DEPARTMENT CHIEF [Primary Care Provider] - Medical Decision Making 1025 --51-year-old male with history of chronic low back pain, here with acute exacerbation. Patient is neurologically intact. Afebrile. He has focal tenderness right lumbar paraspinal. Patient requesting Toradol IM which is helped in the past with exacerbations. Patient to be provided Toradol 30 mg IM. Patient notes has scheduled follow-up with pain management for his back pain and also has follow-up with PCP. Plan will be for discharge with outpatient follow-up. Patient has had imaging of his spine in the past. I did alert him that if pain were to persist or developed atypical symptoms he would need repeat imaging. He was encouraged to call his primary care physician today. He understands he can return to the Emergency Department immediately should have any worsening or new concerning symptoms. HPI General Mode of arrival: ambulatory. Date/Time Provider Initiated Documentation: 06/21/22 10:05. Limitations to Documentation: no limitations. Information obtained by: patient. HPI Narrative: 51-year-old male with history of chronic low back pain, here with exacerbation of low back pain. Patient notes he has had chronic low back pain for years. He has scheduled follow-up with a bumper and painter. He notes his back has been imaged and he has been diagnosed with herniated disks. He states pain is same as prior but having an acute flare. He is requesting Toradol which has helped in the past. Patient denies associated bowel or bladder dysfunction. No numbness or tingling. No focal weakness. No associated fevers. Related Data Home Medications Medication Instructions Recorded Confirmed inhalational spacing device 09/12/12 05/16/22 (Aerochamber Plus Flow-Vu,Small Mask) ALBUTEROL SULFATE HFA 2 puff inhalation QID #3 ea 12/26/19 06/21/22 buprenorphine HCl 8 mg sublingual 24 mg sublingual DAILY 04/13/22 06/21/22 tablet lidocaine 5 % topical patch 1 patch topical Q24H #15 ea 05/16/22 06/21/22 (Lidoderm) pregabalin 50 mg capsule (Lyrica) 50 mg PO DAILY #15 caps 05/21/22 06/21/22 bupropion HCl 150 mg tablet,12 hr 300 mg PO DAILY #30 tabs 06/15/22 06/21/22 sustained-release gabapentin 300 mg capsule 300 mg PO TID #90 caps 06/15/22 06/21/22 (Neurontin) methylphenidate HCl 20 mg tablet 20 mg PO BID #30 tabs 06/15/22 06/21/22 ziprasidone HCl 20 mg capsule 20 mg PO DAILY #30 caps 06/15/22 06/21/22 (Geodon) Previous Rx's Medication Instructions Recorded ALBUTEROL SULFATE HFA 2 puff inhalation QID #3 ea 12/26/19 lidocaine 5 % topical patch 1 patch topical Q24H #15 ea 05/16/22 (Lidoderm) pregabalin 50 mg capsule (Lyrica) 50 mg PO DAILY #15 caps 05/21/22 bupropion HCl 150 mg tablet,12 hr 300 mg PO DAILY #30 tabs 06/15/22 sustained-release gabapentin 300 mg capsule 300 mg PO TID #90 caps 06/15/22 (Neurontin) methylphenidate HCl 20 mg tablet 20 mg PO BID #30 tabs 06/15/22 ziprasidone HCl 20 mg capsule 20 mg PO DAILY #30 caps 06/15/22 (Geodon) Allergies Allergy/AdvReac Type Severity Reaction Status Date / Time onion Allergy Intermediate Hives Verified 06/21/22 09:22 General Stated Complaint: Orthopedic CHUYITA: 4 Review of Systems All systems reviewed & are unremarkable except as noted in HPI and below Constitutional Constitutional: Denies fever(s) Musculoskeletal Musculoskeletal: Reports as per HPI and Reports back pain Neurologic Neurologic: Reports as per HPI PFSH All Active Problems Encounter for medication refill (Acute) Chronic low back pain (Chronic) Methamphetamine use (Acute) 06/08/22 Per [facility] ED. -hb Psychosis (Acute) 06/08/2022. [facility] ED Paranoid (Acute) IV drug abuse (Chronic) Herniated disc (Acute) Low back pain (Acute) Bipolar disorder (Acute) Medication side effects (Acute) Screening for hyperlipidemia (Acute) Elevated liver enzymes (Acute) Medical History Abscess of left hand ADHD Amnestic state Anxiety Depression Paranoid ideation Surgical History History of surgery on arm Presence of surgical screw in left hand S/P right rotator cuff repair Family History Mother Heart disease Father Diabetes Brother Diabetes Hypertension Cancer pancreatic, liver and lung Brother Diabetes Brother Diabetes Sister Cancer pancreatic cancer Social History Smoking/Tobacco Use Status: Current-Occasional Tobacco Type: cigarettes Smoking risk assessment performed?: Yes Alcohol Intake: current Alcohol Intake frequency: a few times a month Alcohol type: beer Drug use: Occasionally Substance use type: IV drugs Details: No longer uses IV drugs. Last smoked marijuana today. Patient reports crack use about two hours ago. Would not reports alcohol use. Do you feel safe at home: Yes Do you feel safe in your relationship?: Yes Exam Const General: cooperative and no acute distress HENMT Mouth: moist mucous membranes Eyes Conjunctivae: normal conjunctivae Sclera: normal sclerae Resp Auscultation: clear to auscultation bilaterally, no rales, no rhonchi and no wheezes Cardio Rate: regular rate and not tachycardic Rhythm: regular rhythm Back/Spine/Pelvis Back: No erythema and No warmth Thoracic/Lumbar Spine: paraspinal tenderness (right lumbar), No thoracic spinal tenderness and No lumbar spinal tenderness Skin General skin exam: no rashes or lesions noted Neuro General: patient alert, patient awake and tone normal Motor: strength 5/5 throughout (bilateral LEs) Sensory Exam: no sensory deficits noted (bilateral LEs) and other (no saddle anesth) DTR's: Rt Patellar: 2+ and Lt Patellar: 2+ Course Vital Signs Vital signs: Vital Signs Pulse 74 06/21/22 09:20 Respiratory Rate 18 06/21/22 09:20 Blood Pressure 146/80 H 06/21/22 09:20 Pulse Oximetry 98 06/21/22 09:20 Pulse 74 06/21/22 09:20 Respiratory Rate 18 06/21/22 09:20 Respiratory Effort Normal 06/21/22 09:24 Blood Pressure 146/80 H 06/21/22 09:20 Blood Pressure Position Sitting 06/21/22 09:20 Pulse Oximetry 98 06/21/22 09:20 Oxygen Delivery Method Room Air 06/21/22 09:20 Oxygen Flow Rate 0 06/21/22 09:20 Pain Level 10 06/21/22 09:20
[2022-06-21] MEDS: Ketorolac 30 MG/ML VIAL IM (10:25)
== END 2022-06-21 10:41 | disposition home or self-care (01) ==
PROVIDERS: Emergency Provider Student in an Organized Health Care Education/Training Program; PCP Nurse Practitioner Family
DX: M54.59 Other low back pain (principal)
CPT/HCPCS: 99284; J1885

== ENCOUNTER 2022-07-05 07:58 | Emergency (ER) | payer MEDICAID, SELFPAY ==
[2022-07-05 08:02] VITALS: BP 148/90; PULSE 76; RESP 18; TEMP 37; O2SAT 99
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
[2022-07-05 09:31] VITALS: BP 142/80; PULSE 80; RESP 18; TEMP 36.8; O2SAT 99
[2022-07-05] MEDS: buPROPion 75 MG TAB 300 MG PO (09:31)
[2022-07-05] MEDS: Acetaminophen 500 MG TAB 1000 MG PO (09:31)
[2022-07-05] MEDS: Ketorolac 15 MG/ML VIAL IM (09:31)
[2022-07-05] MEDS: Gabapentin 300 MG CAP PO (09:31)
--- NOTE | 2022-07-05 11:12 | NUR.NOTE ---
Nursing Note: [facility] called to discuss Methlyphenidate XR order. PT takes non XR tablets. [place] approved prescription change to non XR tablets.
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
== END 2022-07-05 09:30 | disposition home or self-care (01) ==
PROVIDERS: Emergency Provider Emergency Medicine; PCP Nurse Practitioner Family
DX: S00.83XA Contusion of other part of head, initial encounter (principal); Y09 Assault by unspecified means; Z76.0 Encounter for issue of repeat prescription; Z59.00 Homelessness unspecified
CPT/HCPCS: 96372; 99284; J1885; J3490

== ENCOUNTER 2022-07-07 02:14 | Outpatient (CLI) | payer MEDICAID, SELFPAY ==
--- NOTE | 2022-07-07 11:15 | DI.MRI_ITS ---
Exam(s) MR LUMBAR SPINE WO EXAM: MR LUMBAR SPINE WO CLINICAL HISTORY: increasing LOW BACK PAIN, HERNIATED DISC, M54.5. TECHNIQUE: Multiplanar multisequence MRI of the Lumbar spine was performed. COMPARISON: CT UPPER ABD WITH CONTRAST (P) from 06/10/2009 FINDINGS: Conus medullaris is at normal level. There is no evidence of conus mass nor subjacent clumping of in trathecal nerve roots to suggest arachnoiditis. The distal thecal sac appears unremarkable.There is no evidence of Tarlov intrasacral cysts nor other significant findings within the sacral canal Bones:There are no fractures nor ominous osseous lesions in the lumbar vertebral bodies and visualize d sacrum. With respect to the individual levels... T12-L1: At this level there is a central-left paracentral disc protrusion which extends posteriorly 2 mm and is approximately 1.5 cm wide. This indents the thecal sac and contacts the anterior aspect o f the distal spinal cord at this level. Osseous canal dimensions are lower normal at this level. Is no foraminal stenosis the disc protrusion does not extend into the exiting neural foramen this level . Mild degenerative changes are noted in the facet joints. L1-2: Normal disc height and signal. No disc herniation nor central canal stenosis.No foraminal steno sis. Mild bilateral facet arthropathy. L2-3: Normal disc height. Broad relatively symmetrical annular bulging which slightly flattens the an terior thecal sac. There is no dominant disc herniation. Central canal dimensions are lower normal. No significant foraminal stenosis. Mild facet joint degenerative changes. L3-4: Mild disc space narrowing. Posteriorly there is broad annular bulging which use not extending into the exiting right neural foramen but does extend into the floor of the exiting left nerve forame n. Central canal dimensions exhibit mild central canal stenosis. There is no prominent foraminal st enosis. Mild facet joint degenerative changes. L4-5: Relatively preserved disc height. There is central subligamentous annular bulge which indents the anterior thecal sac. Does not extend into the exiting neural foramina. Mild central spinal celso l stenosis. No significant foraminal stenosis. There are mild the degenerative changes in the L4-5 facet joints L5-S1: This level exhibits of mild disc space narrowing. There is mild degenerative anterolisthesis of L5 upon S1 related to facet arthropathy. There is no central canal stenosis. There is annular bu lging which extends into the floor of the exiting neural foramina, more so on the left side. There i s significant bilateral foraminal stenosis with some impingement of the exiting nerve roots between t he overlying L5 pedicles and the subjacent annular bulging . this is more prominent on the left side where there is more prominent annular bulging in the exiting neural foramen. IMPRESSION: 1. Findings as described per individual level above. At L5-S1 level there is mild anterolisthesis o f L5 upon S1 related to facet arthropathy and there is impingement of the exiting nerve roots between the overlying L5 pedicles and subjacent annulus which is bulging into the floor of the exiting neura l foramina, this being more prominent on the left side.. 2. Other findings as above. DATA REPOSITORY:
== END 2022-07-07 02:34 ==
LOC: DI 02:14
PROVIDERS: PCP Nurse Practitioner Family; Visit Provider Nurse Practitioner Family
DX: M47.815 Spondylosis without myelopathy or radiculopathy, thoracolumbar region
CPT/HCPCS: 72148

== ENCOUNTER 2022-07-07 09:33 | Emergency (ER) | payer MEDICAID, SELFPAY ==
[2022-07-07 09:39] VITALS: BP 123/77; PULSE 78; RESP 15; TEMP 36.5; O2SAT 97
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
[2022-07-07] MEDS: Ketorolac 30 MG/ML VIAL IM (10:16)
== END 2022-07-07 10:34 | disposition home or self-care (01) ==
PROVIDERS: Emergency Provider Emergency Medicine; PCP Nurse Practitioner Family
DX: M54.59 Other low back pain (principal); M54.31 Sciatica, right side
CPT/HCPCS: 96372; 99284; 99283; J1885

== ENCOUNTER 2022-07-24 21:30 | Emergency (ER) | payer MEDICAID, SELFPAY ==
[2022-07-24 21:26] VITALS: BP 125/75; PULSE 58; RESP 20; TEMP 36.3; O2SAT 98
[2022-07-24] MEDS: diphenhydrAMINE 50 MG/ML VIAL 25 MG IVP (21:40)
[2022-07-24 22:28] LABS: ALT 41 U/L (16-63); AST 41 U/L (15-37); Albumin 3.3 g/dL (3.4-5.0); Alkaline Phosphatase 60 U/L (46-116); BUN 13 mg/dL (7-18); Bilirubin, Total 0.5 mg/dL (0.2-1.0); CREATININE 0.8 mg/dL (0.70-1.30); Calcium 9.2 mg/dL (8.5-10.1); Chloride 104 mmol/L (98-107); Estimated GFR 107.82 (mL/min/1.73m2); Glucose 87 mg/dL (74-106); Sodium 140 mmol/L (136-145); Total Protein 7.3 g/dL (6.4-8.2)
[2022-07-24 22:36] LABS: Abs Immature Grans 0.06 10^3/uL (0.0-0.06); Absolute Basophil Count 0.03 10^3/uL (0.0-0.2); Absolute Eosinophil Count 0.15 10^3/uL (0.0-0.7); Absolute Lymphocyte Count 1.34 10^3/uL (1.2-3.4); Absolute Monocyte Count 0.79 10^3/uL (0.1-0.8); Absolute Neutrophil Count 6.65 10^3/uL (1.2-6.7); Basophils % 0.3; Eosinophils % 1.7; HCT 38.8 % (40.0-50.0); HGB 13.1 g/dL (13.5-17.5); Immature Grans % 0.7; Lymphocytes % 14.9; MCH 32.8 pg (27.0-33.0); MCHC 33.8 % (32.0-36.0); MCV 97 fL (80-95); MPV 9.9 fL (8.0-11.0); Monocytes % 8.8; Neutrophils % 73.6; Platelet Count 165 10^3/uL (130-400); RDW 11.9 % (11.8-14.1); WBC 9.02 10^3/uL (4.4-10.8)
[2022-07-24] MEDS: Ketorolac 15 MG/ML VIAL IVP (22:38)
[2022-07-24] MEDS: Dexamethasone 10 MG/ML VIAL IVP (22:40)
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
[2022-07-24 23:50] VITALS: BP 138/62; PULSE 65; RESP 20; TEMP 36.3; O2SAT 98
[2022-07-24] MEDS: Cephalexin 500 MG CAP, 4 CAPS/BTL PO (23:50)
[2022-07-25] MEDS: predniSONE 20 MG TAB 40 MG PO (00:47)
== END 2022-07-24 23:51 | disposition home or self-care (01) ==
PROVIDERS: Emergency Provider Physician Assistant; PCP Nurse Practitioner Family
DX: S80.861A Insect bite (nonvenomous), right lower leg, initial encounter (principal); T78.40XA Allergy, unspecified, initial encounter; W57.XXXA Bitten or stung by nonvenomous insect and other nonvenomous arthropods, initial encounter
CPT/HCPCS: 80053; 96374; 96375; 99284; 85025; J1100; J1200; J1885; J7512

== ENCOUNTER 2022-09-21 20:07 | Emergency (ER) | payer MEDICAID, SELFPAY ==
[2022-09-21 20:09] VITALS: BP 149/88; PULSE 98; RESP 18; TEMP 36.3; O2SAT 100
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
[2022-09-21 20:47] LABS: Abs Immature Grans 0.07 10^3/uL (0.0-0.06); Absolute Basophil Count 0.03 10^3/uL (0.0-0.2); Absolute Eosinophil Count 0.01 10^3/uL (0.0-0.7); Absolute Lymphocyte Count 0.73 10^3/uL (1.2-3.4); Absolute Monocyte Count 0.66 10^3/uL (0.1-0.8); Basophils % 0.2; Eosinophils % 0.1; HCT 40.4 % (40.0-50.0); HGB 13.9 g/dL (13.5-17.5); Immature Grans % 0.5; MCH 32.5 pg (27.0-33.0); MCHC 34.4 % (32.0-36.0); MCV 94 fL (80-95); Monocytes % 4.5; Neutrophils % 89.7; Platelet Count 180 10^3/uL (130-400); RBC 4.28 10^6/uL (4.36-5.78); RDW 11.7 % (11.8-14.1)
[2022-09-21 21:12] LABS: ALT 23 U/L (16-63); AST 18 U/L (15-37); Albumin 3.6 g/dL (3.4-5.0); Alkaline Phosphatase 72 U/L (46-116); Anion Gap 12.9 mmol/L (3-11); BUN 14 mg/dL (7-18); Bilirubin, Total 0.9 mg/dL (0.2-1.0); CO2 24.1 mmol/L (21.0-32.0); CREATININE 0.9 mg/dL (0.70-1.30); Calcium 9.2 mg/dL (8.5-10.1); Chloride 101 mmol/L (98-107); Glucose 128 mg/dL (74-106); Potassium 3.3 mmol/L (3.5-5.1); Sodium 138 mmol/L (136-145); Total Protein 7.3 g/dL (6.4-8.2)
[2022-09-21 21:15] LABS: Salicylate < 2.8 mg/dL (<2.8)
[2022-09-21 21:16] LABS: Acetaminophen < 2 ug/mL (10-30); ETHANOL BLOOD < 3.0 mg/dL (<10)
[2022-09-21] MEDS: LORazepam 1 MG TAB 2 MG PO (22:26)
[2022-09-21 22:32] LABS: Bilirubin Negative (Negative); Blood Negative (Negative); Clarity Clear (Clear); Glucose Negative (Negative); Ketones Negative (Negative); Leukocyte Esterase Negative (Negative); Nitrite Negative (Negative)
[2022-09-21 22:47] LABS: *AMPHETAMINES SCREEN URINE Negative (Negative); *BARBITURATES SCREEN URINE Negative (Negative); *BENZODIAZEPINES SCREEN URINE Negative (Negative); Cannabinoids THC Positive (Negative); Cocaine Screen,Urine Positive (Negative); METHADONE URINE SCREEN Negative (Negative); OPIATES URINE SCREEN Negative (Negative)
[2022-09-21 22:49] LABS: Tricyclic Antidepressants Negative (Negative)
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
[2022-09-21] MEDS: Gabapentin 300 MG CAP PO (23:53)
[2022-09-21] MEDS: Ziprasidone 20 MG CAP PO (23:53)
[2022-09-22] MEDS: buPROPion-CR 150 MG TABCR 300 MG PO (00:07)
[2022-09-22] MEDS: Midazolam 2 MG/2 ML VIAL 5 MG IM (01:28)
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
[2022-09-22] MEDS: Ziprasidone 20 MG CAP PO (08:51)
[2022-09-22] MEDS: Gabapentin 300 MG CAP 600 MG PO (08:51)
[2022-09-22] MEDS: buPROPion-XL 150 MG TABCR 300 MG PO (08:51)
--- NOTE | 2022-09-22 09:32 | NUR.NOTE ---
Nursing Note: Eri from [facility] called for information on PT for possible placement. Policy of their facility is not prescribing stimulants. PT will be unable to take methylphenidate while in treatment. PT refused consideration for placement at this facility.
[2022-09-22] MEDS: Buprenorphine/Naloxone 12 mg/3 mg FILM 2 EACH SL (11:04)
--- NOTE | 2022-09-22 11:04 | NUR.NOTE ---
Nursing Note: Nurse to nurse report with [facility] was done. Morning medication administration was provided with when it was given and what doses were given.
--- NOTE | 2022-09-22 13:58 | NUR.NOTE ---
Nursing Note: Patient annoyed that he is not allowed to have caffinated coffee per RN discretion. Pt states that he can have anything that he wants and that he will leave if he cannot have that. RN gave him diet gingerale
--- NOTE | 2022-09-22 14:24 | CMDISCH_ITS ---
Date of service: 09/22/22 Time of Service: 14:24 LACE Index Scoring Tool Questions: Length of Stay (in days): 1 Was the patient admitted via the E.D.?: Yes E.D. Visits: 8 Answers: Total Score: 8 Risk of Readmission: Low Risk Care Management Discharge Plan Reason for Hospitalization: Hallucinations Discharge Plan: [place] is accepted to [facility] for voluntary inpatient psych treatment. Transportation is coordinated by [facility] and is provided by [facility]. Patient/Family Education Needs: Review transfer instructions Disposition Disposition: [facility] via of: EMS ([facility] Coordinated by [facility])
--- NOTE | 2022-09-22 14:54 | NUR.NOTE ---
Nursing Note: Pt arguing with the nurse about him not recieving medication, he was given his medication this am. See MAR for complete list. This RN told pt that [facility] will also be providing him with his daily medication. [facility] in here at this time to tile picker the patient to take him to [facility]
== END 2022-09-22 16:15 ==
PROVIDERS: Emergency Medicine; Emergency Provider Emergency Medicine Emergency Medical Services; PCP Nurse Practitioner Family
DX: R44.3 Hallucinations, unspecified (principal); R45.851 Suicidal ideations; F41.9 Anxiety disorder, unspecified; Z86.59 Personal history of other mental and behavioral disorders; F17.210 Nicotine dependence, cigarettes, uncomplicated; Z53.29 Procedure and treatment not carried out because of patient's decision for other reasons
CPT/HCPCS: 36415; 80053; 80307; 96372; 99285; 80320; 80329; 81003; 84443; 85025; J2250

== ENCOUNTER 2022-11-10 07:40 | Emergency (ER) | payer MEDICAID, SELFPAY ==
[2022-11-10 07:43] VITALS: BP 133/97; PULSE 58; RESP 16; TEMP 36.8; O2SAT 100
[2022-11-10 07:50] VITALS: BP 133/97; PULSE 58; RESP 16; TEMP 36.8; O2SAT 99
--- NOTE | 2022-11-10 07:53 | ED.GENADUL_ITS ---
Discharge Plan Disposition Patient Disposition: Home Discharge Details Clinical Impression: Arm skin lesion, right Primary Care Provider: Emmanuel Momin ED Provider: Dimas Mao Home Meds and New Rx's Prescriptions: New cephalexin 500 mg capsule 500 mg PO QID 7 Days Qty: 28 0RF No Action (DME) Aerochamber Plus Flow-Vu,S Msk 1 EACH spacer 1 ea Miscellaneous QID Rx Instructions: WITH LARGE MASK ziprasidone HCl [Geodon] 20 mg capsule 20 mg PO DAILY Qty: 30 0RF Patient Comments: DUPLICATE 06/15/22 CT Rx Instructions: give with food (meal/snack) bupropion HCl 300 mg tablet extended release 24 hr 300 mg PO DAILY Qty: 7 0RF buprenorphine-naloxone [Suboxone] 12-3 mg film 2 film sublingual DAILY Patient Comments: PLACE TWO FILMS UNDER THE TONGUE EVERY DAY FOR 7 DAYS gabapentin 300 mg capsule 600 mg PO TID trazodone 150 mg tablet 150 mg PO HS methylphenidate HCl 20 mg tablet extended release 20 mg PO DAILY Discharge Instructions Instructions: Cellulitis (ED) Additional Instructions: At this time the lesion that was noticed on ultrasound imaging is likely reflective of a hematoma and calcifications from previous tendon and vessel irritation. Infection is less likely, however out of an abundance of precaution please take the antibiotic as prescribed. Please follow-up closely with your primary care provider for establishment of your chronic medications. If you notice any worsening of your symptoms, or any new symptoms such as vomiting, diarrhea, fever, chills, shortness of breath, chest pain, numbness, weakness, or fainting , please return immediately to the emergency department for reevaluation. Please follow up with your primary care provider as soon as possible for reassessment and reevaluation. As always, it was a pleasure participating in your medical care today. Referrals: Emmanuel Momin, [facility] [Primary Care Provider] - Medical Decision Making 52-year-old male with a past medical history of hepatitis C, psychosis, IV drug abuse, bipolar disorder, high cholesterol, presents today for evaluation of a lesion in his right arm. Patient states that 2 weeks ago he was using a needle in his right arm, after which she developed a small lesion in his right AC. This is continued for 2 weeks. No pain, no fever, no chills, no drainage or discharge. He denies trying to cut at the lesion. He denies any trauma to the site. No other complaints at this time. No other modifying factors. Physical exam demonstrates a ropey firm nodule at the AC joint anteriorly. No redness fluctuance or tenderness. Bedside ultrasound demonstrates what appears to be calcified hematoma around the antecubital vein, as well as irritation around the insertion of the biceps tendon. No evidence of abscess. No evidence of foreign body. No DVT noted in the vein. Suspect that the patient developed a hematoma after he injected, and then this eventually calcified and caused the irritation/lesion. Out of an abundance of precaution we will do a short course of antibiotics for any potential cellulitis, but with no abscess I do not see an indication for MRSA coverage. We will recommend warm compresses and gentle massage. Discussed red flags for which to return. I have extensively reviewed the treatment plan and discharge instructions with the patient. I have addressed all patient concerns at this time. The patient was made aware of what symptoms to monitor for that would warrant a return to the emergency department. Discussed the plan with the patient, they demonstrate verbal understanding and agreement with our assessment and plan at this time. The documentation in this chart was dictated using [employer] dictation software. Please excuse any dictation errors. Additionally the patient did ask for a refill for all of his other medications, he states that his previous primary care provider pissed me off and I do not want to go back to them. I did inform the patient that we would be happy to help set him up with a new primary care provider for establishment of care and prescription refill. Patient stated that he did not want this and would be jus t fine without help HPI General Date/Time Provider Initiated Documentation: 11/10/22 07:43 . HPI Narrative: 52-year-old male with a past medical history of hepatitis C, psychosis, IV drug abuse, bipolar disorder, high cholesterol, presents today for evaluation of a lesion in his right arm. Patient states that 2 weeks ago he was using a needle in his right arm, after which she developed a small lesion in his right AC. This is continued for 2 weeks. No pain, no fever, no chills, no drainage or discharge. He denies trying to cut at the lesion. He denies any trauma to the site. No other complaints at this time. No other modifying factors. Related Data Home Medications Medication Instructions Recorded Confirmed inhalational spacing device 09/12/12 11/10/22 (Aerochamber Plus Flow-Vu,Small Mask) ziprasidone HCl 20 mg capsule 20 mg PO DAILY #30 caps 06/15/22 11/10/22 (Geodon) bupropion HCl 300 mg 24 hr tablet, 300 mg PO DAILY #7 tabs 07/05/22 11/10/22 extended release buprenorphine 12 mg-naloxone 3 mg 2 film sublingual DAILY 09/22/22 11/10/22 sublingual film (Suboxone) gabapentin 300 mg capsule 600 mg PO TID 09/22/22 11/10/22 methylphenidate HCl 20 mg 20 mg PO DAILY 09/22/22 11/10/22 tablet,extended release trazodone 150 mg tablet 150 mg PO HS 09/22/22 11/10/22 cephalexin 500 mg capsule 500 mg PO QID 7 days #28 caps 11/10/22 Previous Rx's Medication Instructions Recorded ziprasidone HCl 20 mg capsule 20 mg PO DAILY #30 caps 06/15/22 (Geodon) bupropion HCl 300 mg 24 hr tablet, 300 mg PO DAILY #7 tabs 07/05/22 extended release cephalexin 500 mg capsule 500 mg PO QID 7 days #28 caps 11/10/22 Allergies Allergy/AdvReac Type Severity Reaction Status Date / Time onion Allergy Intermediate Hives Verified 11/10/22 07:46 General Stated Complaint: Cellulitis CHUYITA: 4 Review of Systems All systems reviewed & are unremarkable except as noted in HPI and below PFSH All Active Problems Arm skin lesion, right (Acute) Methamphetamine use (Acute) 06/08/22 Per [facility] ED. -hb Psychosis (Acute) 06/08/2022. [facility] ED Paranoid (Acute) IV drug abuse (Chronic) Herniated disc (Acute) Low back pain (Acute) Bipolar disorder (Chronic) Medication side effects (Acute) Screening for hyperlipidemia (Acute) Elevated liver enzymes (Acute) Medical History Abscess of left hand ADHD Amnestic state Anxiety Depression Paranoid ideation Surgical History History of surgery on arm Presence of surgical screw in left hand S/P right rotator cuff repair Family History Mother Heart disease Father Diabetes Brother Diabetes Hypertension Cancer pancreatic, liver and lung Brother Diabetes Brother Diabetes Sister Cancer pancreatic cancer Social History Smoking/Tobacco Use Status: Current every day Tobacco Type: cigarettes Smoking risk assessment performed?: Yes Alcohol Intake: current Alcohol Intake frequency: a few times a month Alcohol type: beer Drug use: Occasionally Substance use type: marijuana, crack/cocaine and IV drugs Details: not substance use for 2 weeks Do you feel safe at home: Yes Do you feel safe in your relationship?: Yes Exam Narrative Exam Narrative: 1.Const: Well-nourished, Well-developed, appearing stated age 2.Eyes: PERRL, no conjunctival injection, and symmetrical lids. 3.ENT: Atraumatic external nose and ears. Moist MM. Neck: Symmetric, trachea midline, No thyromegaly. 4.CVS: +S1/S2, No murmurs or gallops. Peripheral pulses 2+ and equal in all extremities. Brisk capillary refill in all extremities. 5.RESP: Unlabored respiratory effort. Clear to auscultation bilaterally. No wheezes rales or rhonchi 6.GI: Soft, Nontender/Nondistended, No hepatosplenomegaly. No guarding or rebound. 7.MSK: Normocephalic/Atraumatic, Extremities w/o deformity or ttp No cyanosis or clubbing, Normal movement of all extremities. Patient's right AC demonstrates a ropey firm nodule at the AC joint anteriorly. No redness fluctuance or tenderness. Bedside ultrasound demonstrates what appears to be calcified hematoma around the antecubital vein, as well as irritation around the insertion of the biceps tendon. 8.Skin: Warm, Dry. No rashes or lesions. 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 Sensation grossly intact, no focal neurologic deficits. 10.Psych: (AAO) x3. Appropriate mood and affect Course Vital Signs Vital signs: Vital Signs Temperature 36.8 C 11/10/22 07:43 Pulse 58 L 11/10/22 07:43 Respiratory Rate 16 11/10/22 07:43 Blood Pressure 133/97 H 11/10/22 07:43 Pulse Oximetry 100 11/10/22 07:43 Temperature 36.8 C 11/10/22 07:50 Temperature Source Temporal Artery Scan 11/10/22 07:50 Pulse 58 L 11/10/22 07:50 Respiratory Rate 16 11/10/22 07:50 Respiratory Effort Normal, Non-Labored 11/10/22 07:47 Blood Pressure 133/97 H 11/10/22 07:50 Blood Pressure Position Sitting 11/10/22 07:50 Pulse Oximetry 99 11/10/22 07:50 Oxygen Delivery Method Room Air 11/10/22 07:50 Oxygen Flow Rate 0 11/10/22 07:43 POCUS Exam (ED) Limited Soft Tissue Exam DATE OF EXAM: 11/10/22 TIME OF EXAM: 08:05 PROVIDER THAT PERFORMED THE STUDY: Dimas Mao IS THIS A REPEAT EXAM DURING THIS ENCOUNTER: No LOCATION OF EXAM: Upper extremity/right (ropey lesion) REASON FOR EXAM: Mass SUALIZED STRUCTURES: Fascia, Muscle, Skin and Subcutaneous tissue PERTINENT FINDINGS/IMPRESSION: Hematoma Right antecubital . Exam Complete
== END 2022-11-10 07:59 | disposition home or self-care (01) ==
PROVIDERS: Emergency Provider Student in an Organized Health Care Education/Training Program; PCP Nurse Practitioner Family
DX: L98.9 Disorder of the skin and subcutaneous tissue, unspecified (principal)
CPT/HCPCS: 99284

== ENCOUNTER 2022-11-22 22:52 | Emergency (ER) | payer MEDICAID, SELFPAY ==
[2022-11-22] VITALS (13 sets, daily range): BP systolic 106–157; BP diastolic 65–88; PULSE 42–77; RESP 7–18; TEMP 37.1; O2SAT 92–100
--- NOTE | 2022-11-22 22:45 | RT.EKG_ITS ---
APPROVED REPORT Exam: Resting ECG Reason for Exam: chest pain/tightness Patient Location: E HR:56 bpm ECG Measurements Heart Rate 56 AXIS NJ 132 P -9 QRSd 102 QRS 90 QT 420 T 27 QTc 407 Conclusion Sinus bradycardia...rate< 60 Physician: no stemi
--- NOTE | 2022-11-22 22:59 | ED.GENADUL_ITS ---
Discharge Plan Disposition Patient Disposition: Home Condition: Good Discharge Details Chief Complaint: Chest Pain Clinical Impression: Acute dehydration, Nausea and vomiting Primary Care Provider: Callum Saini ED Provider: Dimas Mao Home Meds and New Rx's Prescriptions: No Action (DME) Aerochamber Plus Flow-Vu,S Msk 1 EACH spacer 1 ea Miscellaneous QID Rx Instructions: WITH LARGE MASK ziprasidone HCl [Geodon] 20 mg capsule 20 mg PO DAILY Qty: 30 0RF Patient Comments: DUPLICATE 06/15/22 CT Rx Instructions: give with food (meal/snack) bupropion HCl 300 mg tablet extended release 24 hr 300 mg PO DAILY Qty: 7 0RF buprenorphine-naloxone [Suboxone] 12-3 mg film 2 film sublingual DAILY Patient Comments: PLACE TWO FILMS UNDER THE TONGUE EVERY DAY FOR 7 DAYS gabapentin 300 mg capsule 600 mg PO TID trazodone 150 mg tablet 150 mg PO HS Hold Instructions: Prescription Finished methylphenidate HCl 20 mg tablet extended release 20 mg PO DAILY Discharge Instructions Instructions: Dehydration (ED), Acute Nausea and Vomiting (ED) Additional Instructions: At this time you have been rehydrated. Your laboratory work-up is stable. Your CAT scan thankfully shows no significant abnormality. Please take the Zofran as needed for nausea. Please stick with a bland diet for the next few days as your GI track gets reestablished. Please take a probiotic to help establish new gut rajwinder. If you notice any worsening of your symptoms, or any new symptoms such as vomiting, diarrhea, fever, chills, shortness of breath, chest pain, numbness, weakness, or fainting , please return immediately to the emergency department for reevaluation. Please follow up with your primary care provider as soon as possible for reassessment and reevaluation. As always, it was a pleasure participating in your medical care today. Referrals: Callum Saini DO [Primary Care Provider] - Medical Decision Making 52-year-old male with a past medical history of previous hepatitis C, previous IV drug use, psychosis/schizophrenia, presents today for evaluation of vomiting. Patient states that from 8 AM this morning he has been vomiting nonstop. No blood in his vomitus. He has not had any bowel movements. He states that he feels quite dehydrated. He also admits to some chest pain that was occurring as he vomited more frequently. This is subsequently resolved about 1 to 2 hours ago. He describes the chest pain as achy in nature. No tearing or ripping sensation. He admits to epigastric abdominal pain which he also describes as achy in nature. He denies any recent alcohol use. No other complaints at this time. EMS was called, they did give 325 aspirin and a sublingual Zofran. Exam demonstrates well-appearing male, mild epigastric achiness. No guarding or rebound. Dry mucous membranes. Concern for viral etiology causing vomiting and subsequent dehydration. Cardiac etiology unlikely based on current clinical exams. Boerhaave's tear is unlikely to based on current clinical assessment with no subcutaneous crepitus or other abnormalities. However due to the nature of his symptoms will get CT imaging, evaluate for cardiac concerns, rehydrate, monitor closely and reassess. 1:54 AM Laboratory work-up has returned, no white count or bandemia. Electrolytes normal, renal function stable. COVID flu and RSV are negative. Lipase normal. Troponin normal. Patient feels well. Patient was asking for food. Patient given crackers and tolerated this well. Patient given water and tolerated this well. No vomiting. Patient feels well and is asking for sandwich. Patient has been rehydrated with IV fluids. CT scan negative for acute process. No evidence of Boerhaave tear or obstruction per radiology. Patient stable for discharge. Will give Zofran for home use. Will give sandwich for home. Discussed red flags for which to return. I have extensively reviewed the treatment plan and discharge instructions with the patient. I have addressed all patient concerns at this time. The patient was made aware of what symptoms to monitor for that would warrant a return to the emergency department. Discussed the plan with the patient, they demonstrate verbal understanding and agreement with our assessment and plan at this time. The documentation in this chart was dictated using [employer] dictation software. Please excuse any dictation errors. FINDINGS: Thyroid: Thyroid gland partially excluded from view but grossly unremarkable through its visualized portion. Lungs: No pulmonary consolidation. Pleural spaces: No pleural effusion or pneumothorax. Heart: Normal-sized heart. Lymph nodes: No pathologically enlarged mediastinal or hilar lymph nodes. Vasculature: No thoracic aortic aneurysm or dissection. Bones/joints: No acute fracture seen among the bones of the chest. Spinal degenerative change with endplate irregularities and anterior osteophytes at several levels. Prominent degenerative change at the glenohumeral joints, worse on the right, only partially included within the field of view. Soft tissues: 1.3 cm x 2.3 cm subcutaneous but cutaneously based cyst/nodule in the right paramidline posterior chest wall on image 13 of series 4, not well characterized by today's exam but probably a trichilemmal cyst or sebaceous cyst. No gross soft tissue mass or fluid collection seen in the chest wall. IMPRESSION: No active disease is seen in the chest. FINDINGS: Liver: Liver partially obscured by artifact but grossly unremarkable, as seen. Gallbladder and bile ducts: Normal appearing gallbladder. No calcified gallstones. No biliary dilatation. Pancreas: Pancreas partially obscured by close opposition of adjacent structures and by artifact but grossly unremarkable, as seen. Spleen: Spleen partially obscured by artifact but grossly unremarkable, as seen. Adrenal glands: Adrenal glands partially obscured but grossly unremarkable, as seen. Kidneys and ureters: Kidneys partially obscured by artifact but grossly unremarkable, as seen. No hydronephrosis. No obstructing ureteral stones. Stomach and bowel: No oral contrast. Stomach partially decompressed. No small bowel dilatation to suggest obstruction. Normal-appearing colon. No evidence of diverticulitis or colitis. Appendix: Appendix partially obscured but normal in caliber and appearance through its visualized portion. Intraperitoneal space: No gross ascites or free air. Vasculature: Normal caliber abdominal aorta. Lymph nodes: No pathologically enlarged mesenteric, retroperitoneal, or pelvic sidewall lymph nodes. Urinary bladder: Normal appearing urinary bladder. Reproductive: Normal-appearing prostate gland and seminal vesicles. Bones/joints: No acute fracture seen among the bones of the abdomen or pelvis. Prominent bilateral facet arthrosis at L5-S1. Soft tissues: 3.0 cm x 2.2 cm fat containing ventral hernia at the umbilicus. IMPRESSION: 1. No acute bowel pathology demonstrated. 2. 3.0 cm x 2.2 cm fat containing ventral hernia at the umbilicus. Thank you for allowing us to participate in the care of your patient. Dictated and Authenticated by: David Lee MD 11/23/2022 1:15 AM Eastern Time ([place] & [place]) HPI General Date/Time Provider Initiated Documentation: 11/22/22 22:57 . HPI Narrative: 52-year-old male with a past medical history of previous hepatitis C, previous IV drug use, psychosis/schizophrenia, presents today for evaluation of vomiting. Patient states that from 8 AM this morning he has been vomiting nonstop. No blood in his vomitus. He has not had any bowel movements. He states that he feels quite dehydrated. He also admits to some chest pain that was occurring as he vomited more frequently. This is subsequently resolved about 1 to 2 hours ago. He describes the chest pain as achy in nature. No tearing or ripping sensation. He admits to epigastric abdominal pain which he also describes as achy in nature. He denies any recent alcohol use. No other complaints at this time. EMS was called, they did give 325 aspirin and a sublingual Zofran. Related Data Home Medications Medication Instructions Recorded Confirmed inhalational spacing device 09/12/12 11/10/22 (Aerochamber Plus Flow-Vu,Small Mask) ziprasidone HCl 20 mg capsule 20 mg PO DAILY #30 caps 06/15/22 11/22/22 (Geodon) bupropion HCl 300 mg 24 hr tablet, 300 mg PO DAILY #7 tabs 07/05/22 11/22/22 extended release buprenorphine 12 mg-naloxone 3 mg 2 film sublingual DAILY 09/22/22 11/22/22 sublingual film (Suboxone) gabapentin 300 mg capsule 600 mg PO TID 09/22/22 11/22/22 methylphenidate HCl 20 mg 20 mg PO DAILY 09/22/22 11/22/22 tablet,extended release trazodone 150 mg tablet 150 mg PO HS 09/22/22 11/23/22 Previous Rx's Medication Instructions Recorded ziprasidone HCl 20 mg capsule 20 mg PO DAILY #30 caps 06/15/22 (Geodon) bupropion HCl 300 mg 24 hr tablet, 300 mg PO DAILY #7 tabs 07/05/22 extended release Allergies Allergy/AdvReac Type Severity Reaction Status Date / Time onion Allergy Intermediate Hives Verified 11/22/22 23:15 General Stated Complaint: Chest Pain CHUYITA: 3 Review of Systems All systems reviewed & are unremarkable except as noted in HPI and below PFSH All Active Problems (Updated 11/23/22 @ 01:57 by Dimas Mao DO) Nausea and vomiting (Acute) Acute dehydration (Acute) Arm skin lesion, right (Acute) Methamphetamine use (Acute) 06/08/22 Per [facility] ED. -hb Psychosis (Acute) 06/08/2022. [facility] ED Paranoid (Acute) IV drug abuse (Chronic) Herniated disc (Acute) Low back pain (Acute) Bipolar disorder (Chronic) Medication side effects (Acute) Screening for hyperlipidemia (Acute) Elevated liver enzymes (Acute) Medical History Amnestic state Paranoid ideation ADHD Depression Anxiety Abscess of left hand Surgical History Presence of surgical screw in left hand History of surgery on arm S/P right rotator cuff repair Family History Mother Heart disease Father Diabetes Brother Diabetes Hypertension Cancer pancreatic, liver and lung Brother Diabetes Brother Diabetes Sister Cancer pancreatic cancer Social History Smoking/Tobacco Use Status: Current every day Tobacco Type: cigarettes Smoking risk assessment performed?: Yes Alcohol Intake: current Alcohol Intake frequency: a few times a month Alcohol type: beer Drug use: Occasionally Substance use type: marijuana, crack/cocaine and IV drugs Details: not substance use for 2 weeks Do you feel safe at home: Yes Do you feel safe in your relationship?: Yes Exam Narrative Exam Narrative: 1.Const: Well-nourished, Well-developed, appearing stated age 2.Eyes: PERRL, no conjunctival injection, and symmetrical lids. 3.ENT: Atraumatic external nose and ears. Notably dry MM. Neck: Symmetric, trachea midline, No thyromegaly. 4.CVS: +S1/S2, No murmurs or gallops. Peripheral pulses 2+ and equal in all extremities. Brisk capillary refill in all extremities. 5.RESP: Unlabored respiratory effort. Clear to auscultation bilaterally. No wheezes rales or rhonchi 6.GI: Soft,Nondistended, No hepatosplenomegaly. No guarding or rebound. Mild achiness in the epigastric region. 7.MSK: Normocephalic/Atraumatic, Extremities w/o deformity or ttp No cyanosis or clubbing, Normal movement of all extremities 8.Skin: Warm, Dry. No rashes or lesions. 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 Sensation grossly intact, no focal neurologic deficits. 10.Psych: (AAO) x3. Appropriate mood and affect Course Vital Signs Vital signs: Vital Signs Temperature 37.1 C 11/22/22 22:53 Pulse 62 11/22/22 22:53 Respiratory Rate 16 11/22/22 22:53 Blood Pressure 136/84 11/22/22 22:53 Pulse Oximetry 100 11/22/22 22:53 Temperature 37.1 C 11/22/22 22:53 Temperature Source Temporal Artery Scan 11/22/22 22:53 Pulse 62 11/22/22 22:53 Respiratory Rate 16 11/22/22 22:53 Blood Pressure 136/84 11/22/22 22:53 Pulse Oximetry 100 11/22/22 22:53 Oxygen Delivery Method Room Air 11/22/22 22:53 Oxygen Flow Rate 0 11/22/22 22:53 Pain Level 0 11/22/22 22:53
[2022-11-22] MEDS: Lactated Ringers 1,000 ML 1000 ML IV (23:18)
[2022-11-22 23:26] LABS: Abs Immature Grans 0.03 10^3/uL (0.0-0.06); Absolute Basophil Count 0.03 10^3/uL (0.0-0.2); Absolute Eosinophil Count 0.06 10^3/uL (0.0-0.7); Absolute Lymphocyte Count 0.85 10^3/uL (1.2-3.4); Absolute Monocyte Count 0.33 10^3/uL (0.1-0.8); Absolute Neutrophil Count 8.68 10^3/uL (1.2-6.7); Basophils % 0.3; Eosinophils % 0.6; HCT 45.1 % (40.0-50.0); HGB 15.5 g/dL (13.5-17.5); Immature Grans % 0.3; Lymphocytes % 8.5; MCH 32.3 pg (27.0-33.0); MCHC 34.4 % (32.0-36.0); MCV 94 fL (80-95); MPV 9.2 fL (8.0-11.0); Monocytes % 3.3; Platelet Count 211 10^3/uL (130-400); RDW 11.8 % (11.8-14.1); RDW-SD 40.9 fL; WBC 9.98 10^3/uL (4.4-10.8)
[2022-11-22 23:44] LABS: ALT 46 U/L (16-63); AST 28 U/L (15-37); Albumin 3.6 g/dL (3.4-5.0); Alkaline Phosphatase 66 U/L (46-116); Anion Gap 5.7 mmol/L (3-11); BUN 22 mg/dL (7-18); Bilirubin, Total 0.3 mg/dL (0.2-1.0); CO2 27.3 mmol/L (21.0-32.0); CREATININE 0.8 mg/dL (0.70-1.30); Calcium 9.4 mg/dL (8.5-10.1); Chloride 103 mmol/L (98-107); Estimated GFR 107.15 (mL/min/1.73m2); Glucose 115 mg/dL (74-106); Lipase 17 U/L (16-77); Potassium 4.1 mmol/L (3.5-5.1); Sodium 136 mmol/L (136-145); Total Protein 7.6 g/dL (6.4-8.2); Troponin I < 50 ng/L (<or=60)
[2022-11-22 23:48] LABS: COVID-19 PCR Negative (Negative); Influenza A PCR Negative (Negative); Influenza B PCR Negative (Negative); RSV PCR Negative (Negative)
[2022-11-22 23:51] LABS: Source Nasopharynx
[2022-11-23] VITALS (18 sets, daily range): BP systolic 96–152; BP diastolic 53–91; PULSE 48–80; RESP 9–23; O2SAT 95–100
--- NOTE | 2022-11-23 00:01 | DI.CT_ITS ---
Exam(s) CT CHEST/ABD/PEL W EXAM: CT CHEST/ABD/PEL W CLINICAL HISTORY: vomiting, epig/chest pain, r/o obstruction/Tear TECHNIQUE: Imaging Protocol: Axial computed tomography images with coronal and sagittal reformatted images were created and reviewed CONTRAST MATERIAL: Intravenous: Omnipaque 350 contrast volume:100 mL Oral: No COMPARISON: CT UPPER ABD WITH CONTRAST (P) from 06/10/2009 CR RIGHT THUMB from 06/16/2011 FINDINGS: The examination is limited due to patient motion artifact. There is also artifact related to the lucia ent's positioning of the upper extremities. CHEST: Tracheobronchial tree: There is a 4 mm nodule in the left lower lobe. Pulmonary parenchyma: No consolidation or dominant measurable mass. There is dependent atelectasis in the lung bases. Visualized thyroid gland: Unremarkable. Mediastinum and Gemma: No dominant adenopathy or fluid collection. The esophagus is unremarkable. Pleura: No effusion or pneumothorax. Heart: The heart is not dilated. Coronary artery calcification is present. No pericardial effusion. Pulmonary arteries: Due to the bolus timing, the pulmonary arteries are not adequately opacified for evaluation of pulmonary emboli. Aorta: Thoracic aorta non-dilated. Lymph nodes: Within normal limits. Soft tissues: There is a 2.2 x 1.3 cm subcutaneous nodule in the right back. This likely reflects a benign lesion such as a sebaceous cyst. There is no involvement of the underlying musculature. Bones:Within normal limits for the patient's age. Marked degenerative changes are seen in the should ers, right greater than left. ABDOMEN: Liver: Normal density. No measurable mass. Portal, Superior Mesenteric, and Splenic Veins: Unremarkable. Gallbladder and Biliary Tract: No radiodense calculus or dilation. Pancreas: Normal density, no abnormal calcifications or inflammatory process. Spleen: Normal. Adrenals: No masses seen. Kidneys: Normal size, contour and axis. No radiodense stones or obstructive uropathy. No masses seen. Abdominal Aorta: Abdominal portion non-dilated. Atherosclerosis is present. Bowel: No obstruction or bowel wall thickening. There is no evidence of an appendicitis. Peritoneal Cavity: No ascites, collection or mesenteric inflammatory response. No free air. Lymph Nodes: Within normal limits. Bones: Within normal limits for the patient's age. Soft Tissues: There is a moderate size fat containing umbilical hernia. PELVIS: Bladder: Symmetric distention, no gross wall thickening. Reproductive Organs: Unremarkable as visualized. Lymph Nodes: Within normal limits. Bones: Within normal limits. ORIF of the left hand is noted. IMPRESSION: 1. No acute pulmonary process. 2. No acute abdominal or pelvic process. 3. Moderate size fat containing umbilical hernia. 4. 4 mm nodule in the left lower lobe. In low risk patients, no follow-up is required. In high risk patients, optional CT scan in 12 months may be obtained. (Jaya et al, 2017). Unexpected findings RADIATION DOSE DELIVERED: Total DLP DATA REPOSITORY: All CT scans at this facility are submitted to the National Radiology Data Registry (NRDR) Dose Index Registry (DIR) with the [employer] (ACR). RADIATION OPTIMIZATION: All CT scans at this facility use at least one of these dose optimization te chniques: automated exposure control; mA and/or kV adjustment per patient size (includes targeted exa ms where dose is matched to clinical indication); or iterative reconstruction.
[2022-11-23] MEDS: Omnipaque 350 MG/ML 100 ML BTL IJ (00:13)
[2022-11-23] MEDS: Normal Saline - Diluent 50 ML VIAL IJ (00:14)
[2022-11-23] MEDS: Normal Saline Flush 10 ML SYR IVP (00:14)
[2022-11-23] MEDS: Ondansetron 4 MG/2 ML VIAL IVP (00:34)
--- NOTE | 2022-11-23 01:16 | DI.VRAD_ITS ---
PROCEDURE INFORMATION: Exam: CT Chest With Contrast; Diagnostic Exam date and time: 11/23/2022 12:05 AM Age: 52 years old Clinical indication: Vomiting; Abdominal pain; Other: Epigastric; Chest wall pain; Additional info: R/O obstruction/tear TECHNIQUE: Imaging protocol: Diagnostic computed tomography of the chest with contrast. 3D rendering (Not supervised by radiologist): MIP and/or 3D reconstructed images were created by the technologist. COMPARISON: No relevant prior studies available. FINDINGS: Thyroid: Thyroid gland partially excluded from view but grossly unremarkable through its visualized portion. Lungs: No pulmonary consolidation. Pleural spaces: No pleural effusion or pneumothorax. Heart: Normal-sized heart. Lymph nodes: No pathologically enlarged mediastinal or hilar lymph nodes. Vasculature: No thoracic aortic aneurysm or dissection. Bones/joints: No acute fracture seen among the bones of the chest. Spinal degenerative change with endplate irregularities and anterior osteophytes at several levels. Prominent degenerative change at the glenohumeral joints, worse on the right, only partially included within the field of view. Soft tissues: 1.3 cm x 2.3 cm subcutaneous but cutaneously based cyst/nodule in the right paramidline posterior chest wall on image 13 of series 4, not well characterized by today's exam but probably a trichilemmal cyst or sebaceous cyst. No gross soft tissue mass or fluid collection seen in the chest wall. IMPRESSION: No active disease is seen in the chest. PROCEDURE INFORMATION: Exam: CT Abdomen And Pelvis With Contrast Exam date and time: 11/23/2022 12:05 AM Age: 52 years old Clinical indication: Vomiting; Abdominal pain; Other: Epigastric; Chest wall pain; Additional info: R/O obstruction/tear TECHNIQUE: Imaging protocol: Computed tomography of the abdomen and pelvis with contrast. 3D rendering (Not supervised by radiologist): MIP and/or 3D reconstructed images were created by the technologist. COMPARISON: MR LUMBAR SPINE WO 07/07/2022 10:47 AM FINDINGS: Liver: Liver partially obscured by artifact but grossly unremarkable, as seen. Gallbladder and bile ducts: Normal appearing gallbladder. No calcified gallstones. No biliary dilatation. Pancreas: Pancreas partially obscured by close opposition of adjacent structures and by artifact but grossly unremarkable, as seen. Spleen: Spleen partially obscured by artifact but grossly unremarkable, as seen. Adrenal glands: Adrenal glands partially obscured but grossly unremarkable, as seen. Kidneys and ureters: Kidneys partially obscured by artifact but grossly unremarkable, as seen. No hydronephrosis. No obstructing ureteral stones. Stomach and bowel: No oral contrast. Stomach partially decompressed. No small bowel dilatation to suggest obstruction. Normal-appearing colon. No evidence of diverticulitis or colitis. Appendix: Appendix partially obscured but normal in caliber and appearance through its visualized portion. Intraperitoneal space: No gross ascites or free air. Vasculature: Normal caliber abdominal aorta. Lymph nodes: No pathologically enlarged mesenteric, retroperitoneal, or pelvic sidewall lymph nodes. Urinary bladder: Normal appearing urinary bladder. Reproductive: Normal-appearing prostate gland and seminal vesicles. Bones/joints: No acute fracture seen among the bones of the abdomen or pelvis. Prominent bilateral facet arthrosis at L5-S1. Soft tissues: 3.0 cm x 2.2 cm fat containing ventral hernia at the umbilicus. IMPRESSION: 1. No acute bowel pathology demonstrated. 2. 3.0 cm x 2.2 cm fat containing ventral hernia at the umbilicus. Dictated and Authenticated by: David Lee MD. Ordering:RASTA Cochran MD
[2022-11-23] MEDS: Normal Saline 1,000 ML 1000 ML IV (01:19)
[2022-11-23] MEDS: Ondansetron O.D.T. 4 MG TABEF, 3 TABS/BTL PO (02:15)
== END 2022-11-23 02:15 | disposition home or self-care (01) ==
LOC: ER 11-23 02:26
PROVIDERS: Emergency Provider Student in an Organized Health Care Education/Training Program; PCP Family Medicine
DX: R11.2 Nausea with vomiting, unspecified (principal); E86.0 Dehydration
CPT/HCPCS: 74177; 80053; 83690; 87637; 93005; 96365; 96376; 99284; 71260; 83735; 84484; 85025; 93010; J2405; J3490

== ENCOUNTER 2023-09-27 05:57 | Emergency (ER) | payer MEDICAID, SELFPAY ==
[2023-09-27 05:59] VITALS: BP 155/81; PULSE 91; RESP 17; O2SAT 97
[2023-09-27] MEDS: Ketorolac 15 MG/ML VIAL IVP (06:56)
[2023-09-27] MEDS: ACETAMINOPHEN 1,000 MG/100 ML BTL 400 MG IVPB (06:56)
[2023-09-27] MEDS: Lactated Ringers 1,000 ML 1000 ML IV (06:57)
[2023-09-27 06:58] LABS: Abs Immature Grans 0.03 10^3/uL (0.0-0.06); Absolute Basophil Count 0.07 10^3/uL (0.0-0.2); Absolute Eosinophil Count 0.27 10^3/uL (0.0-0.7); Absolute Lymphocyte Count 2.56 10^3/uL (1.2-3.4); Absolute Neutrophil Count 6.34 10^3/uL (1.2-6.7); Basophils % 0.7 %; Eosinophils % 2.7 %; HCT 39.9 % (40.0-50.0); HGB 13.8 g/dL (13.5-17.5); Immature Grans % 0.3 %; Lymphocytes % 25.4 %; MCH 33.7 pg (27.0-33.0); MCHC 34.6 % (32.0-36.0); MCV 97 fL (80-95); MPV 9.3 fL (8.0-11.0); Monocytes % 7.9 %; Platelet Count 162 10^3/uL (130-400); RDW 11.2 % (11.8-14.1); WBC 10.07 10^3/uL (4.4-10.8)
--- NOTE | 2023-09-27 07:02 | ED.GENADUL_ITS ---
Discharge Plan Discharge Details Chief Complaint: GenMedical Primary Care Provider: Jef Balderas ED Provider: Dimas Mao Home Meds and New Rx's Prescriptions: No Action (DME) Aerochamber Plus Flow-Vu,S Msk 1 EACH spacer 1 ea Miscellaneous QID Rx Instructions: WITH LARGE MASK ziprasidone HCl [Geodon] 20 mg capsule 20 mg PO DAILY Qty: 30 0RF Patient Comments: DUPLICATE 06/15/22 CT Rx Instructions: give with food (meal/snack) docusate sodium [Colace] 100 mg capsule See Rx Instructions PO .COMPLEX Rx Instructions: orally; duloxetine 20 mg capsule,delayed release(DR/EC) See Rx Instructions PO .COMPLEX Rx Instructions: orally; dose unverified atomoxetine 10 mg capsule See Rx Instructions PO .COMPLEX Rx Instructions: orally; dose unverified meloxicam 7.5 mg tablet See Rx Instructions PO DAILY Rx Instructions: dose unverified senna 8.6 mg capsule See Rx Instructions .ROUTE .COMPLEX Rx Instructions: dose unverified acetaminophen [Tylenol] 325 mg capsule See Rx Instructions PO ONCE PRN Rx Instructions: orally once PRN; bupropion HCl 300 mg tablet extended release 24 hr 300 mg PO DAILY Qty: 7 0RF buprenorphine-naloxone [Suboxone] 12-3 mg film 2 film sublingual DAILY Patient Comments: PLACE TWO FILMS UNDER THE TONGUE EVERY DAY FOR 7 DAYS gabapentin 600 mg tablet 600 mg PO TID Patient Comments: TAKE ONE TABLET BY MOUTH THREE TIMES A DAY HPI General Date/Time Provider Initiated Documentation: 09/27/23 06:31 . HPI Narrative: 53-year-old male with a past medical history of psychosis, paranoia, hepatitis C, previous IV drug use, history of herniated disks, bipolar, presents today for evaluation of spasms. Patient's history is slightly erratic, but he states that he was let out of [facility] in [place] yesterday and then walked from [place] down here to [facility]. He states that my whole body hurts, everything hurts, I have never been in so much pain, I have ulcers the size of my hands on my feet, my groin hurts, everything hurts. When trying to get into the specifics it sounds like the patient's right groin has been tender for the last 2 months, it is mild in pain. Minimal achiness. Occasional sharp and stabbing sensation. The whole body hurting is for all of his extremities, worsened with movement or any activity. He denies any falls or trauma. He denies any drug use at this time. No other complaints at this time. Related Data Home Medications ?Medication ?Instructions ?Recorded ?Confirmed inhalational spacing device 09/12/12 11/10/22 (Aerochamber Plus Flow-Vu,Small Mask) ziprasidone HCl 20 mg capsule 20 mg PO DAILY #30 caps 06/15/22 09/27/23 (Geodon) bupropion HCl 300 mg 24 hr tablet, 300 mg PO DAILY #7 tabs 07/05/22 09/27/23 extended release buprenorphine 12 mg-naloxone 3 mg 2 film sublingual DAILY 09/22/22 09/27/23 sublingual film (Suboxone) acetaminophen 325 mg capsule See Rx Instructions PO ONCE PRN 07/05/23 09/27/23 (Tylenol) atomoxetine 10 mg capsule See Rx Instructions PO .COMPLEX 07/05/23 docusate sodium 100 mg capsule See Rx Instructions PO .COMPLEX 07/05/23 (Colace) duloxetine 20 mg capsule,delayed See Rx Instructions PO .COMPLEX 07/05/23 release meloxicam 7.5 mg tablet See Rx Instructions PO DAILY 07/05/23 09/27/23 sennosides 8.6 mg capsule (senna) See Rx Instructions .Route .COMPLEX 07/05/23 gabapentin 600 mg tablet 600 mg PO TID 09/27/23 09/27/23 Previous Rx's ?Medication ?Instructions ?Recorded ziprasidone HCl 20 mg capsule 20 mg PO DAILY #30 caps 06/15/22 (Geodon) bupropion HCl 300 mg 24 hr tablet, 300 mg PO DAILY #7 tabs 07/05/22 extended release Allergies Allergy/AdvReac Type Severity Reaction Status Date / Time onion Allergy Intermediate Hives Verified 09/27/23 06:16 naproxen Allergy Mild Unknown Verified 09/27/23 06:16 Sulfa (Sulfonamide Allergy Unknown Unknown Verified 09/27/23 06:16 Antibiotics) General Stated Complaint: GenMedical CHUYITA: 3 Review of Systems All systems reviewed & are unremarkable except as noted in HPI and below Exam Narrative Exam Narrative: 1.Const: Well-nourished, Well-developed, appearing stated age 2.Eyes: PERRL, no conjunctival injection, and symmetrical lids. 3.ENT: Atraumatic external nose and ears. Moist MM. Neck: Symmetric, trachea midline, No thyromegaly. 4.CVS: +S1/S2, No murmurs or gallops. Peripheral pulses 2+ and equal in all extremities. Brisk capillary refill in all extremities. 5.RESP: Unlabored respiratory effort. Clear to auscultation bilaterally. No wheezes rales or rhonchi 6.GI: Soft, Nontender/Nondistended, No hepatosplenomegaly. No guarding or rebound. 7.MSK: Normocephalic/Atraumatic, Extremities w/o deformity or ttp No cyanosis or clubbing, Normal movement of all extremities Right groin and proximal thigh demonstrates no evidence of lesions, redness, herniation, mass, or abnormality. Minimal tenderness at the medial proximal aspect of the thigh. Femoral pulses +2 bilaterally. 8.Skin: Warm, Dry. No rashes or lesions. Patient does have 2 very small ulcers/blisters on the plantar aspect of his feet. They are each around 5 mm in diameter. No other signs of trauma 9.Neuro: reel fed printer II-XII grossly intact. Sensation grossly intact, no focal neurologic deficits. 10.Psych: (AAO) x3. Appropriate mood and affect Course Vital Signs Vital signs: Vital Signs Pulse 91 H 09/27/23 05:59 Respiratory Rate 17 09/27/23 05:59 Blood Pressure 155/81 H 09/27/23 05:59 Pulse Oximetry 97 09/27/23 05:59 Pulse 91 H 09/27/23 05:59 Respiratory Rate 17 09/27/23 05:59 Respiratory Effort Normal, Non-Labored 09/27/23 06:04 Blood Pressure 155/81 H 09/27/23 05:59 Pulse Oximetry 97 09/27/23 05:59 Oxygen Delivery Method Room Air 09/27/23 05:59 Oxygen Flow Rate 0 09/27/23 05:59 Pain Level 10 09/27/23 06:56 Lab/Test Results Lab/Test Results: Laboratory Tests Range/Units 09/27/23 06:50 WBC (4.4-10.8) 10^3/uL 10.07 RBC (4.36-5.78) 10^6/uL 4.10 L Hgb (13.5-17.5) g/dL 13.8 Hct (40.0-50.0) % 39.9 L MCV (80-95) fL 97 H MCH (27.0-33.0) pg 33.7 H MCHC (32.0-36.0) % 34.6 RDW (11.8-14.1) % 11.2 L Plt Count (130-400) 10^3/uL 162 MPV (8.0-11.0) fL 9.3 Immature Gran % % 0.3 Neutrophils % % 63.0 Lymphocytes % % 25.4 Monocytes % % 7.9 Eosinophils % % 2.7 Basophils % % 0.7 Nucleated RBC % (0.0-0.3) % 0.0 Absolute Neutrophils (1.2-6.7) 10^3/uL 6.34 Absolute Lymphocytes (1.2-3.4) 10^3/uL 2.56 Absolute Monocytes (0.1-0.8) 10^3/uL 0.80 Absolute Eosinophils (0.0-0.7) 10^3/uL 0.27 Absolute Basophils (0.0-0.2) 10^3/uL 0.07 Medical Decision Making 53-year-old male with a past medical history of psychosis, paranoia, hepatitis C, previous IV drug use, history of herniated disks, bipolar, presents today for evaluation of spasms. Patient's history is slightly erratic, but he states that he was let out of [facility] in [place] yesterday and then walked from [place] down here to [facility]. He states that my whole body hurts, everything hurts, I have never been in so much pain, I have ulcers the size of my hands on my feet, my groin hurts, everything hurts. When trying to get into the specifics it sounds like the patient's right groin has been tender for the last 2 months, it is mild in pain. Minimal achiness. Occasional sharp and stabbing sensation. The whole body hurting is for all of his extremities, worsened with movement or any activity. He denies any falls or trauma. He denies any drug use at this time. No other complaints at this time. Exam demonstrates a very stable appearing male, heart rate 91, mild hypertension. No tetany or spasms. No focal abnormalities on exam aside for very small blisters on the bottoms of his feet around 2.5 mm. No swelling or edema of the lower extremities. No other abnormalities in particular. Differential includes dehydration, electrolyte imbalance. DVT is of concern but less likely. We will get an ultrasound of the right lower extremity. Muscle spasm or groin strain certainly on the differential for the cause of his symptoms. Will rehydrate, give Boris Mab, Toradol, and Flexeril. We will monit or closely and reassess. 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 -[facility] Psychosis (Acute) 06/08/2022. [facility] Paranoid (Acute) IV drug abuse (Chronic) Herniated disc (Acute) Low back pain (Acute) Bipolar disorder (Chronic) Medication side effects (Acute) Screening for hyperlipidemia (Acute) Elevated liver enzymes (Acute) Medical History Amnestic state Paranoid ideation ADHD Depression Anxiety Abscess of left hand Surgical History Presence of surgical screw in left hand History of surgery on arm S/P right rotator cuff repair Family History Mother Heart disease Father Diabetes Brother Diabetes Hypertension Cancer pancreatic, liver and lung Brother Diabetes Brother Diabetes Sister Cancer pancreatic cancer Social History Smoking/Tobacco Use Status: Current every day Tobacco Type: cigarettes Smoking risk assessment performed?: Yes Alcohol Intake: current Alcohol Intake frequency: a few times a month Alcohol type: beer Drug use: Occasionally Substance use type: marijuana and crack/cocaine Do you feel safe at home: Yes Do you feel safe in your relationship?: Yes
[2023-09-27] MEDS: Cyclobenzaprine 10 MG TAB PO (07:13)
--- NOTE | 2023-09-27 08:30 | DI.US_ITS ---
Exam(s) US LOWER EXTREMITY VENOUS RT EXAM: US LOWER EXTREMITY VENOUS RT CLINICAL HISTORY: medial thigh pain, eval for clot. TECHNIQUE: Lower extremity venous ultrasound performed using grayscale, color-flow, and spectral Do ppler analysis. COMPARISON: No exams were available for comparison FINDINGS: The common femoral, femoral and popliteal veins demonstrate normal compressibility, augmentation, and color Doppler. The posterior tibial veins are patent. No saphenous vein thrombosis or other superfi cial venous thrombosis is seen. No hematoma or Weinberg's cyst is seen. IMPRESSION: Negative lower extremity ultrasound. No evidence of DVT. DATA REPOSITORY:
[2023-09-27 09:11] LABS: ALT 60 U/L (16-63); AST 57 U/L (15-37); Albumin 3.6 g/dL (3.4-5.0); Alkaline Phosphatase 65 U/L (46-116); Anion Gap 7.8 mmol/L (3-11); BUN 20 mg/dL (7-18); Bilirubin, Total 0.93 mg/dL (0.2-1.0); CO2 26.2 mmol/L (21.0-32.0); CREATININE 0.8 mg/dL (0.70-1.30); Chloride 104 mmol/L (98-107); Estimated GFR 106.48 (mL/min/1.73m2); Glucose 109 mg/dL (74-106); Lipase 10 U/L (16-77); Magnesium 2.1 mg/dL (1.8-2.4); Potassium 3.7 mmol/L (3.5-5.1); Sodium 138 mmol/L (136-145); Total Protein 6.9 g/dL (6.4-8.2)
[2023-09-27] MEDS: Normal Saline - Diluent 50 ML VIAL IJ (09:28)
[2023-09-27] MEDS: Omnipaque 350 MG/ML 100 ML BTL IJ (09:28)
--- NOTE | 2023-09-27 09:30 | DI.CT_ITS ---
Exam(s) CT ABDOMEN PELVIS W EXAM: CT ABDOMEN PELVIS W CLINICAL HISTORY: ruq and LUQ pain, eval for GB pathology. TECHNIQUE: Imaging Protocol: Axial computed tomography images with coronal and sagittal reformatted images were created and reviewed CONTRAST MATERIAL: Intravenous: Omnipaque 350 Contrast volume:100 ml Oral: / no COMPARISON: CT CT CHEST/ABD/PEL W from 11/23/2022 FINDINGS: ABDOMEN and PELVIS: Lung Bases: No acute findings. Liver: Normal density. No suspicious mass. Gallbladder and biliary tract: No radiodense calculus. No biliary dilation. No wall thickening. Pancreas: Normal density. No abnormal calcifications or inflammatory process. No evidence of mass. Spleen: Normal. Kidneys: Normal size, contour and axis. No radiodense stones. No obstructive uropathy. No suspicious masses seen. Adrenal glands: No masses seen. Vasculature: Abdominal aorta non-dilated. Soft tissues: Stable appearance of fat containing umbilical hernia. Bladder: No gross wall thickening. No calculi.No focal mass. Bowel: No obstruction. No bowel wall thickening. Appendix normal. Peritoneal cavity: No ascites. No focal collection. No mesenteric inflammatory response. Bones: The degenerative changes noted in the right hip and lumbar spine. Reproductive organs: Unremarkable. Lymph nodes: No pathologically enlarged lymph nodes. IMPRESSION:: No acute abnormality in the abdomen or pelvis. The gallbladder appears normal. There is no biliary dilatation. Stable appearance of fat containing umbilical hernia. RADIATION DOSE DELIVERED: Total DLP DATA REPOSITORY: All CT scans at this facility are submitted to the National Radiology Data Registry (NRDR) Dose Index Registry (DIR) with the [employer] (ACR). RADIATION OPTIMIZATION: All CT scans at this facility use at least one of these dose optimization te chniques: automated exposure control; mA and/or kV adjustment per patient size (includes targeted exa ms where dose is matched to clinical indication); or iterative reconstruction.
[2023-09-27 10:38] VITALS: RESP 17
[2023-09-27 10:56] VITALS: BP 128/82; PULSE 64; RESP 16; TEMP 36.6; O2SAT 98
== END 2023-09-27 11:11 | disposition home or self-care (01) ==
PROVIDERS: Student in an Organized Health Care Education/Training Program; Emergency Provider Emergency Medicine; PCP Physical Therapist
DX: M79.604 Pain in right leg (principal); R52 Pain, unspecified; S90.821A Blister (nonthermal), right foot, initial encounter; S90.822A Blister (nonthermal), left foot, initial encounter; X58.XXXA Exposure to other specified factors, initial encounter
CPT/HCPCS: 36415; 80053; 83690; 96361; 96374; 96375; 99285; 74177; 83735; 85025; 93971; 99283; J0131; J1885; J3490

== ENCOUNTER 2023-09-30 15:11 | Emergency (ER) | payer MEDICAID, SELFPAY ==
[2023-09-30 15:13] VITALS: BP 122/78; PULSE 92; RESP 16; TEMP 37.3; O2SAT 98
--- NOTE | 2023-09-30 16:00 | DI.RAD_ITS ---
Exam(s) XR TIB/FIB RT EXAM: XR TIB/FIB RT CLINICAL HISTORY: R bolaños pain after fall. TECHNIQUE: 2D digital imaging was performed. Two views. COMPARISON: CR,XR XR TIB/FIB LT from 05/15/2021 FINDINGS: Exam limited by overlying clothing. BONES: No acute fracture is present. No bony destructive lesion is seen. Visualized portion of knee a nd ankle joints are unremarkable. Heel spurs. SOFT TISSUE: Swelling. No foreign body or gas formation. IMPRESSION: Soft tissue swelling. DATA REPOSITORY: RADIATION DOSE DELIVERED:
--- NOTE | 2023-09-30 16:07 | ED.GENADUL_ITS ---
Discharge Plan Disposition Patient Disposition: Home Condition: Stable Discharge Details Clinical Impression: Leg pain, Blister of foot Primary Care Provider: Jef Balderas ED Provider: Mariella Mendoza Home Meds and New Rx's Prescriptions: Continued (DME) Aerochamber Plus Flow-Vu,S Msk 1 EACH spacer 1 ea Miscellaneous QID Rx Instructions: WITH LARGE MASK ziprasidone HCl [Geodon] 20 mg capsule 20 mg PO DAILY Qty: 30 0RF Patient Comments: DUPLICATE 06/15/22 CT Rx Instructions: give with food (meal/snack) docusate sodium [Colace] 100 mg capsule See Rx Instructions PO .COMPLEX Rx Instructions: orally; duloxetine 20 mg capsule,delayed release(DR/EC) See Rx Instructions PO .COMPLEX Rx Instructions: orally; dose unverified atomoxetine 10 mg capsule See Rx Instructions PO .COMPLEX Rx Instructions: orally; dose unverified meloxicam 7.5 mg tablet See Rx Instructions PO DAILY Rx Instructions: dose unverified senna 8.6 mg capsule See Rx Instructions .ROUTE .COMPLEX Rx Instructions: dose unverified acetaminophen [Tylenol] 325 mg capsule See Rx Instructions PO ONCE PRN Rx Instructions: orally once PRN; bupropion HCl 300 mg tablet extended release 24 hr 300 mg PO DAILY Qty: 7 0RF buprenorphine-naloxone [Suboxone] 12-3 mg film 2 film sublingual DAILY Patient Comments: PLACE TWO FILMS UNDER THE TONGUE EVERY DAY FOR 7 DAYS gabapentin 600 mg tablet 600 mg PO TID Patient Comments: TAKE ONE TABLET BY MOUTH THREE TIMES A DAY bupropion HCl 300 mg tablet extended release 24 hr 300 mg PO QAM Qty: 30 0RF duloxetine 20 mg capsule,delayed release(DR/EC) 20 mg PO DAILY Qty: 30 0RF gabapentin 600 mg tablet 600 mg PO TID Qty: 60 0RF ziprasidone HCl 20 mg capsule 20 mg PO DAILY Qty: 30 0RF Rx Instructions: give with food (meal/snack) Discharge Instructions Instructions: Blisters Additional Instructions: Please follow-up with your primary care provider first thing Monday. A referral has been placed to you can get close follow-up and help with services as needed. It is very important that you follow-up to have your wounds reexamined and to make sure that your legs are feeling better. Please elevate your feet above heart level to help with swelling in your lower legs. Keep your blisters clean and dry. Wash daily antibacterial soap and water. Please be sure to change her socks daily. Put a nonstick dressing to cover them and change as needed when they get damp. Return to emergency care if you develop new chest pain, difficulty breathing, numbness in your feet, or if you are very worried and need to be rechecked immediately. Referrals: Jef Balderas [Primary Care Provider] - Discharge Data Discharge Date/Time-TO BE ENTERED AT DEPARTURE: 09/30/23 18:39 HPI General Date/Time Provider Initiated Documentation: 09/30/23 15:50 . HPI Narrative: Seun is a 53-year-old male who presents to the emergency department today for evaluation of right benitez swelling. He reports that he fell last night over step, has sustained abrasion to the front of his benitez. He did walk home to the [place] from [place] the night before last, says he has had pain in his calf since then, as well as blisters to the bottom of his left foot at the base of his toes. He denies fever/chills, dizziness, chest pain, shortness of breath, nausea/vomiting, abdominal pain, change in bowel or bladder function/urine output, distal numbness/tingling, difficulty ambulating. He does smoke cigarettes, has a remote history of IV drug use. Physical exam remarkable for mild nonpitting edema to bilateral calves, no erythema or warmth. 45 cm left versus 46 cm right. Superficial abrasions noted to the right benitez, no surrounding erythema or immediate edema concerning for cellulitis. Mild tenderness to palpation overlying skin. No pallor to distal extremity. Full range of motion of knee. Distal pulses intact. Sensation intact to bilateral feet. Popped blisters noted to the plantar aspect of the L foot at the base of the toes, surrounding skin is white and macerated. No maceration noted between toes. Easy work of breathing, lung sounds clear bilaterally. Normal heart sounds. Abdomen soft, nondistended, nontender to palpation. DDx includes but is not limited to: muscle strain after overexertion, dependent edema, electrolyte imbalance, kidney dysfunction. CPK ordered to rule out rhabdomyolysis. No red flags concerning for compartment syndrome; low suspicion for cellulitis, as edema is bilateral and not localized to area of abrasion. Bilateral edema not consistent with DVT. I independently interpreted the following tests: CBC, CMP reassuring. CPK elevated at 941, more consistent with muscle exertion from extensive walking vs rhabdomyolysis. Unable to obtain urine sample. While in the emergency department Seun soaked his left foot, wound care performed. Benitez pain most consistent with recent abrasion combined with overexertion. R ecommend close follow-up with PCP for further evaluation and management as needed. Reviewed discharge instructions with patient, Including red flags indicating need for return to emergency care. Related Data Home Medications ?Medication ?Instructions ?Recorded ?Confirmed inhalational spacing device 09/12/12 09/30/23 (Aerochamber Plus Flow-Vu,Small Mask) ziprasidone HCl 20 mg capsule 20 mg PO DAILY #30 caps 06/15/22 09/30/23 (Geodon) bupropion HCl 300 mg 24 hr tablet, 300 mg PO DAILY #7 tabs 07/05/22 09/30/23 extended release buprenorphine 12 mg-naloxone 3 mg 2 film sublingual DAILY 09/22/22 09/30/23 sublingual film (Suboxone) acetaminophen 325 mg capsule See Rx Instructions PO ONCE PRN 07/05/23 09/30/23 (Tylenol) atomoxetine 10 mg capsule See Rx Instructions PO .COMPLEX 07/05/23 09/30/23 docusate sodium 100 mg capsule See Rx Instructions PO .COMPLEX 07/05/23 09/30/23 (Colace) duloxetine 20 mg capsule,delayed See Rx Instructions PO .COMPLEX 07/05/23 09/30/23 release meloxicam 7.5 mg tablet See Rx Instructions PO DAILY 07/05/23 09/30/23 sennosides 8.6 mg capsule (senna) See Rx Instructions .Route .COMPLEX 07/05/23 09/30/23 bupropion HCl 300 mg 24 hr tablet, 300 mg PO QAM #30 tabs 09/27/23 09/30/23 extended release duloxetine 20 mg capsule,delayed 20 mg PO DAILY #30 caps 09/27/23 09/30/23 release gabapentin 600 mg tablet 600 mg PO TID 09/27/23 09/30/23 gabapentin 600 mg tablet 600 mg PO TID #60 tabs 09/27/23 09/30/23 ziprasidone HCl 20 mg capsule 20 mg PO DAILY #30 caps 09/27/23 09/30/23 Previous Rx's ?Medication ?Instructions ?Recorded ziprasidone HCl 20 mg capsule 20 mg PO DAILY #30 caps 06/15/22 (Geodon) bupropion HCl 300 mg 24 hr tablet, 300 mg PO DAILY #7 tabs 07/05/22 extended release bupropion HCl 300 mg 24 hr tablet, 300 mg PO QAM #30 tabs 09/27/23 extended release duloxetine 20 mg capsule,delayed 20 mg PO DAILY #30 caps 09/27/23 release gabapentin 600 mg tablet 600 mg PO TID #60 tabs 09/27/23 ziprasidone HCl 20 mg capsule 20 mg PO DAILY #30 caps 09/27/23 Allergies Allergy/AdvReac Type Severity Reaction Status Date / Time onion Allergy Intermediate Hives Verified 09/30/23 15:17 naproxen Allergy Mild Unknown Verified 09/30/23 15:17 Sulfa (Sulfonamide Allergy Unknown Unknown Verified 09/30/23 15:17 Antibiotics) General Stated Complaint: Orthopedic CHUYITA: 4 Review of Systems Narrative: see HPI Exam Const General: cooperative, healthy appearing, comfortable and no acute distress Nutritional Appearance: average body habitus Resp Effort & Inspection: normal respiratory effort and able to speak in complete sentences Auscultation: clear to auscultation bilaterally Cardio Rate: regular rate Rhythm: regular rhythm Skin Trauma: abrasion (R benitez) Extrem General: no calf tenderness and edema (bilateral lower legs) Laterality: bilateral Course Vital Signs Vital signs: Vital Signs Temperature 37.3 C 09/30/23 15:13 Pulse 92 H 09/30/23 15:13 Respiratory Rate 16 09/30/23 15:13 Blood Pressure 122/78 09/30/23 15:13 Pulse Oximetry 98 09/30/23 15:13 Temperature 37.3 C 09/30/23 15:13 Pulse 92 H 09/30/23 15:13 Respiratory Rate 16 09/30/23 15:13 Respiratory Effort Normal 09/30/23 15:18 Blood Pressure 122/78 09/30/23 15:13 Pulse Oximetry 98 09/30/23 15:13 Pain Level 10 09/30/23 15:13 Medical Decision Making Quality:SDOH Health Related Social Needs: No Data to Display PFSH All Active Problems (Updated 09/30/23 @ 18:28 by Mariella Fuentes) Blister of foot (Acute) Leg pain (Acute) Leg pain (Acute) 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 -hb Psychosis (Acute) 06/08/2022. [facility] Paranoid (Acute) IV drug abuse (Chronic) Herniated disc (Acute) Low back pain (Acute) Bipolar disorder (Chronic) Medication side effects (Acute) Screening for hyperlipidemia (Acute) Elevated liver enzymes (Acute) Medical History Amnestic state Paranoid ideation ADHD Depression Anxiety Abscess of left hand Surgical History Presence of surgical screw in left hand History of surgery on arm S/P right rotator cuff repair Family History Mother Heart disease Father Diabetes Brother Diabetes Hypertension Cancer pancreatic, liver and lung Brother Diabetes Brother Diabetes Sister Cancer pancreatic cancer Social History Smoking/Tobacco Use Status: Current every day Tobacco Type: cigarettes Smoking risk assessment performed?: Yes Alcohol Intake: current Alcohol Intake frequency: a few times a month Alcohol type: beer Drug use: Occasionally Substance use type: marijuana Do you feel safe at home: Yes Do you feel safe in your relationship?: Yes
--- OUTSIDE RECORDS SUMMARY | 2023-09-30 16:07 | XMS_ITS | Encounter Summary ---
Author Organization [facility] Address [address] [place] [address] Care Team Providers Care Director Sports Name Role Phone YaoCallum Primary Care Provider [phone] Reason for Visit * Reason Onset Date Comments Other 06/21/2010 hep c.Waiting to schedule appt. to start treatment. Encounter Details Date Type Department Care Team (Late st Contact Info) Description 06/21/2010 Telephone [facility] - [address] [address] Jad Burt MD [address] [facility], [address] [place] [address] Other (hep c.Waiting to schedule appt. to start treatment.) Social History Tobacco Use Types Packs/Day Years Used Date Smoking Tobacco: Never Assessed Sex and Gender Information Value Date Recorded Sex Assigned at Not on file Gender Identity Male 06/08/2022 11:45 EDT Sexual Orientation Not on file documented as of this encounter Miscellaneous Notes * Telephone Encounter - Belem Marie - 06/21/2010 1501 EDT Patient was called. The new medications for Hep C that he is referring to are not available yet. Patient has an appt with Dr Burt in September, and will discuss meds at that time. * Telephone Encounter - Deloris Meehan - 06/21/2010 1442 EDT Said he called last week, and would like a call soon. documented in this encounter Plan of Treatment Not on file documented as of this encounter Visit Diagnoses Not on filedocumented in this encounter Care Teams Director Sports Relationship Specialty Start Date End Date Callum Samayoa DO [address] [place] [id number] PCP - General 06/22/09 documented as of this encounter
--- OUTSIDE RECORDS SUMMARY | 2023-09-30 16:07 | XMS_ITS | Encounter Summary ---
Author Organization [facility] Address [facility] [place] [address] Care Team Providers Care Restaurant And Bar Manager Name Role Phone None Primary Care Provider Unavailabl e Encounter Details Date Type Department Care Team (Latest Contact Info) Description 10/04/2020 10:59 AM EDT - 10/04/2020 11:59 PM EDT Hospital Encounter Lab at [address] [phone] Discharge Disposition: Home Social History Tobacco Use Types Packs/Day Years Used Date Smoking Tobacco: Every Day Cigarettes 0.5 5 Smokeless Tobacco: Never Alcohol Use Standard Drinks/Week Comments No 0 (1 standard drink = 0.6 oz pur e alcohol) last drink in 2005 Sex and Gender Information Value Date Recorded Sex Assigned at Not on file Gender Identity Not on file Sexual Orientation Not on file documented as of this encounter Medications at Time of Discharge Medication Sig Dispensed Refills Start Date End Date albuterol (PROVENTIL HFA;VENTOLIN HFA) 90 mcg/actuation inhaler Inhale 2 puffs into the lungs every 4 hours as needed. Use with spacer peginterferon ronald-2a (PEGASYS) 180 mcg/mL injection Inject 1 mL subcutaneously every 7 days. 4 mL 5 05/24/2011 telaprevir 375 mg Tab Take 750 mg by mouth 3 times daily. 180 tablet 2 05/24/2011 ribavirin (REBETOL) 200 mg capsule Take 3 capsules by mouth 2 times daily. 180 capsule 5 05/24/2011 methylphenidate (METADATE ER) 20 mg ER tablet Take 20 mg by mouth 2 times daily. omeprazole (PRILOSEC) 20 mg capsule Take 20 mg by mouth daily. documented as of this encounter Plan of Treatment Not on file documented as of this encounter Procedures Procedure Name Priority Date/Time Associated Diagnosis Comments D-DIMER, QUANTITATIVE Routine 10/04/2020 9:45 AM EDT GREEN TUBE HOLD Routine 10/04/2020 9:45 AM EDT PRO-BRAIN NATRIURETIC PEPTIDE Routine 10/04/2020 9:45 AM EDT BASIC METABOLIC PANEL Routine 10/04/2020 9:45 AM EDT documented in this encounter Results * Green Tube HOLD (10/04/2020 9:45 AM EDT) Green Hold Sample in lab. [facility] Blood No Charge / Unknown 10/04/2020 9:45 AM EDT 10/04/2020 11:01 AM EDT [facility] CHEMISTRY ORDERABLES Performing Organization Address [facility] Co de Phone Number [facility] [address] [place] [address] * D-Dimer, Quantitative (10/04/2020 9:45 AM EDT) Pathologist [facility] D-Dimer 241 0 - 500 FEU ng/ml [facility] Comment: The D-Dimer assay is used to aid in the diagnosis of deep vein thrombosis and pulmonary embolism. A normal D-Dimer result (less than 500 FEU ng/ml) has a negative predictive value of approximately 95% for the exclusion of acute PE and DVT when there is low to moderate pretest probability. To use age adjusted cutoff: Age x 10 ng/ml. Blood Venous Draw / Unknown 10/04/2020 9:45 AM EDT 10/04/2020 11:01 AM EDT Narrative Resulting Agency Comment Spec In Lab [facility] HEMATOLOGY ORDERABLE S Performing Organization Address City/[facility]/ZIP Co de Phone Number [facility] [address] [place] [id number] * pro-Brain Natriuretic Peptide (10/04/2020 9:45 AM EDT) NT-proBNP 18 <=124 pg/mL [facility] Blood Venous Draw / Unknown 10/04/2020 9:45 AM EDT 10/04/2020 11:00 AM EDT Narrative Resulting Agency Comment Spec In Lab [facility]TS CHEMISTRY ORDERABLES [facility] [address] [place] [address] * Basic Metabolic Panel (non-fasting) (10/04/2020 9:45 AM EDT) Glucose 88 65 - 199 mg/dL [facility] Comment:Diabetes: >=200 mg/d L plus symptoms Blood Urea Nitrogen 17 10 - 20 mg/dL [facility] Creatinine 0.83 0.80 - 1.50 mg/dL [facility] Sodium 140 135 - 145 mmol/L [facility] Potassium 4.7 3.5 - 5.0 mmol/L [facility] Comment: Please note: ??Patients with WBC >100,000 may have falsely elevated Potassium levels. ??For accurate Potassium quantification in these patients send serum separator tube (gold top) for subsequent determinations. ??Contact the Clinical Chemistry Laboratory if there are any questions. Chloride 103 98 - 107 mmol/L [facility] Carbon Dioxide 28 22 - 31 mmol/L [facility] Anion Gap 9 5 - 15 mmol/L [facility] Calcium 9.6 8.5 - 10.5 mg/dL [facility] Est Glomerular Filtration Rate 103 >=60 mL/min/1. 73 m?? [facility] Comment: This patient? s estimated glomerular filtration rate (eGFR) is between 103 mL/min/1.73 m2 (patients with less muscle mass per kg body weight) and 120 mL/min/1.73 m2 (patients with more muscle mass per kg body weight) as determined by the CKD-EPI equation. Assessment of eGFR is not appropriate when creatinine concentrations are rapidly changing. For clinical decisions where creatinine clearance will affect therapy, a 24-hour urine creatinine clearance may be advised. Assignment of CKD stage 1 - 5 for patients with an eGFR near the transition point between stages may be based on clinical assessment of muscle mass and symptoms in addition to eGFR. Blood Venous Draw / Unknown 10/04/2020 9:45 AM EDT 10/04/2020 11:00 AM EDT Narrative Resulting Agency Comment Spec In Lab Dave[facility] BUTTS CHEMISTRY ORDERABLES [facility] [address] [place] [address] documented in this encounter Visit Diagnoses Not on filedocumented in this encounter Care Teams Restaurant And Bar Manager Relationship Specialty Start Date End Date None None PCP - General 09/06/20 04/18/22 documented as of this encounter
--- OUTSIDE RECORDS SUMMARY | 2023-09-30 16:07 | XMS_ITS | Encounter Summary ---
[place] [address] Care Team Providers Care Micrographics Services Supervisor Name Role Phone Emmanuel Ramirez DNP Primary Care Provider [phone] Reason for Referral * Consultation (Routine) - Denied Specialty Diagnoses / Procedures Referred By Lexa henson Referred To Contact [facility] Diagnoses Low back pain, unspecified back pain laterality, unspecified chronicity, unspecified whether sciatica present Review with TOOL GRINDER OPERATOR SURFACE Emmanuel Ramirez DNP [facility] [place] [address] [facility] [place] [address] Referral ID Status Reason Start Date Expiration Date V isits Requested Visits Authorized [id number] Denied Consult, Test & Treat PCP Updated and/or Approved 04/19/2022 04/19/2023 1 0 Encounter Details Date Type Department Care Team (Late st Contact Info) Description 04/19/2022 Transcribe Orders eDH Incoming Referrals [phone] Emmanuel Ramirez DNP [address] [facility] [place], [place] [id number] Low back pain, unspecified back pain laterality, unspecified chronicity, unspecified whether sciatica present Social History Tobacco Use Types Packs/Day Years [...] on file documented as of this encounter Plan of Treatment Scheduled Referrals Name Type Priority Associated Diagnoses Orde r Schedule Referral to Spine Center Outpatient Referral Routine Low back pain, unspecified back pain laterality, unspecified chronicity, unspecified whether sciatica present Ordered: 04/19/2022 documented as of this encounter Visit Diagnoses Diagnosis Low back pain, unspecified back pain laterality, unspecified chronicity, unspecified whether sciatica present documented in this encounter Care Teams Micrographics Services Supervisor Relationship Specialty Start Date End Date Emmanuel Ramirez DNP [address] [place] [id number] PCP - General Family Medicine 04/19/22 documented as of this encounter
--- OUTSIDE RECORDS SUMMARY | 2023-09-30 16:07 | XMS_ITS | Encounter Summary ---
Author Organization [facility] Address [address] [place] [address] Care Team Providers Care Cdl Instructor Name Role Phone Nick Moreno MD Primary Care Provider [phone] Encounter Details Date Type Department Care Team (Late st Contact Info) Description 10/02/2008 10:47 EDT - 10/02/2008 23:59 EDT Hospital Encounter [address] [address] Jad Burt MD [address] [place] [address], [address] [place] [phone] Discharge Disposition: Home or Self Care Social History Tobacco Use Types Packs/Day Years Used Date Smoking Tobacco: Never Assessed Sex and Gender Information Value Date Recorded Sex Assigned at Not on file Gender Identity Male 06/08/2022 11:45 EDT Sexual Orientation Not on file documented as of this encounter Discharge Disposition Disposition Code Departure Means Destination Home or Self Custodial documented in this encounter Plan of Treatment Not on file documented as of this encounter Procedures Procedure Name Priority Date/Time Associated Diagnosis Comments HEPATITIS A ANTIBODY IGM Routine 10/02/2008 11:01 EDT HEPATITIS A TOTAL ANTIBODY W REFLEX Routine 10/02/2008 11:01 EDT HEPATITIS B CORE ANTIBODY (TOTAL) Routine 10/02/2008 11:01 EDT HEPATITIS B SURFACE ANTIGEN Routine 10/02/2008 11:01 EDT PTT Routine 10/02/2008 11:01 EDT PROTIME Routine 10/02/2008 11:01 EDT HEMOCHROMATOSIS HFE GENE ANALYSIS, BLOOD Routine 10/02/2008 11:01 EDT documented in this encounter Results * HEPATITIS A ANTIBODY IGM (10/02/2008 11:01 EDT) Hep A Antibody IgM Negative Result consistent with past exposure, NOT a recent infection. Reference Range: ??Negative [facility] 10/02/2008 11:0 1 EDT 10/02/2008 11:03 EDT Jad Burt MD CHEMISTRY & BLOOD GAS ORDERABLES Performing Organization Address [facility] de Phone Number [facility] [address] [place] [address] * HEPATITIS B CORE ANTIBODY (10/02/2008 11:01 EDT) Hep B Core Ab Negative Reference Range: ??Negative Interpretati on depends on clinical setting. [facility] Blood specimen (specimen) 10/02/2008 11:01 EDT 10/02/2008 11:03 EDT Jad Burt MD CHEMISTRY & BLOOD GAS ORDERABLES Performing Organization Address [facility] de Phone Number [facility] [address] [place] [address] * HEPATITIS A TOTAL ANTIBODY (10/02/2008 11:01 EDT) Hep A Antibody Positive Antibody to Hepatitis A detected. Reference Range: ??Negative [facility] Blood specimen (specimen) 10/02/2008 11:01 EDT 10/02/2008 11:03 EDT Jad Burt MD CHEMISTRY & BLOOD GAS ORDERABLES Performing Organization Address [facility] Co de Phone Number [facility] [address] [place] [address] * HEPATITS B SURFACE ANTIGEN (10/02/2008 11:01 EDT) Hepatitis B Surface Ag Negative Reference Range: ??Negative [facility] Blood specimen (specimen) 10/02/2008 11:01 EDT 10/02/2008 11:03 EDT Jad Burt MD CHEMISTRY & BLOOD GAS ORDERABLES [facility] [address] [place] [address] * HEMOCHROMATOSIS (10/02/2008 11:01 EDT) Hemochromatosis Gene RESULT: ? 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 ??The H63D mutation was not detected. ? METHOD: ? The hemochromatosis mutations are detected by amplification of DNA ? isolated from blood followed by cutting with restriction enzymes. ? The C282Y mutation creates a new RsaI restriction site while the H63D ? mutation causes loss of a MboI restriction site. ? INTERPRETATION: ? Heterozygosity for the C282Y mutation indicates that the individual ? is at minimum a carrier of hereditary hemochromatosis (HH). ? Approximately 10-15% of individuals with hemochromatosis are ? heterozygous for this mutation, however, 10% of the general ? population also carry this mutation. ? TEST PERFORMED BY: ? [facility] ? [facility] ? [address] ? [facility] ? [place] [address] ? These results need to be interpreted in the context of the clinical ? presentation and the results of other laboratory tests. ??A ? consultation with a genetics counselor may be of benefit for this ? individual and/or family to further discuss the implications of these ? findings. The results reported here are only as accurate as the ? identity of the sample received. If any of the information we ? received is inaccurate, or the identity of the sample is incorrect, ? these results and my interpretation and estimation of risk reported ? here could be invalid. ??This test is not an FDA- approved test, ? however it is based on the use of analyte-specific reagents that do ? not require FDA approval. ??A [place] statute prevents our laboratory ? from releasing these results to anyone other than the person who has ? been tested and the referring clinician without the prior written ? consent of the person tested. ? Coleen ??Vivek Sevilla MD ? Clinical Director ? Diagnosis Code: ??070.54 ? [facility] Blood specimen (specimen) 10/02/2008 11:01 EDT 10/02/2008 11:03 EDT Jad Burt MD PACKAGES & DNA NM OBE ORDERABLES Performing Organization Address [facility] de Phone Number [facility] [address] [place] [address] * PTT (10/02/2008 11:01 EDT) PTT 34 20 - 35 secs [facility] Comment:Therapeutic Heparin range: 60-100 seconds Blood specimen (specimen) 10/02/2008 11:01 EDT 10/02/2008 11:03 EDT Jad Burt MD HEMATOLOGY & PF4 ORDERABLES Performing Organization Address [facility] de Phone Number [facility] [address] [place] [address] * PROTIME (10/02/2008 11:01 EDT) Pro Time 12.7 12.0 - 15.0 secs [facility] Comment:Coumadin N I.N.R. 0.9 0.9 - 1.1 Ratio [facility] Comment: Moderate Intensity Coumadin INR = 2.0-3.0 Adjustments in anticoagulant therapy dose should be based upon the INR and NOT the Pro Time. Coumadin N Blood specimen (specimen) 10/02/2008 11:01 EDT 10/02/2008 11:03 EDT Jad Burt MD HEMATOLOGY & PF4 ORDERABLES [facility] [address] [place] [address] documented in this encounter Visit Diagnoses Not on filedocumented in this encounter Care Teams Cdl Instructor Relationship Specialty Start Date End Date Nick Moreno MD [address] [place] [phone] PCP - General 09/30/08 06/17/09 documented as of this encounter
--- OUTSIDE RECORDS SUMMARY | 2023-09-30 16:07 | XMS_ITS | Encounter Summary ---
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 [id number] thinking and concrete, no suicidal ideation and no homicidal ideation Sensorium: alert Orientation: to person, place, time and situation Attention: grossly intact Memory: grossly intact Language: shows no deficits 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 male with history detailed above. Strong suspicion for recent methamphetamine use either producing or exacerbating paranoid ideation. 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 The nature of what he presently describes is highly improbable and not corroborated by others who were around him at [facility]. Extremely hostile, suspicious and somewhat threatening during assessment today. Also denying SI or HI consistently. 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 I would not prescribe any stimulants to him at this time, despite his protestations. I also have concerns about possible anti-social traits given his history and current comportment, although I defer formal diagnosis. Suicide Risk Assessment Modifiable Risk Factors: Increased energy, Substance abuse/dependence, Impulsivity, Aggressivity, Agitation, Insomia, Polarized thinking, Psychotic state, Cluster B Personality Disorder/Traits, Unemployment, Poor social support and Homelessness Non-Modifiable Risk Factors: male single Protective Factors: Sense of responsibility to family and social supports/connections Overall Risk Rating: Acute: Low Chronic: Low Comments on Assessment of Risk: To our knowledge, patient has no history of suicidal behavior and is not presently suicidal. Patient does not meet criteria for inpatient hospitalization, until we clarify if illness is primary or secondary to drugs. Patient does not meet criteria for involuntary hold . 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 Patient does not require 1:1 observation and may leave of their own volition 2. Remaining in the ED to clear stimulants, will make determination of placement from there 3. Continue DIE FILER medications EXCEPT stimulants. NO STIMULANTS. Recommending olanzapine 15mg x1 now, and olanzapine 10mg at bedtime thereafter 4. In the event of a psychiatric emergency: Haloperidol 5 mg and Lorazepam 2 mg to be offered PO unless patient is an acute danger to themselves/other in which case this should be given IM x1. If emergency medications are given please notify the psychiatrist online banking specialist for the ED. Carlitos Coker DO Attending Psychiatrist 06/08/2022 15:41 documented in this encounter Plan of Treatment Not on file documented as of this encounter Visit Diagnoses Diagnosis Psychosis, unspecified psychosis type (HCC-CMS)- Primary documented in this encounter Administered Medications Inactive Administered Medications - up to 3 most recent administrations Medication Order MAR Action Action Date Dose Rate Site acetaminophen (TYLENOL) tablet 650 mg 650 mg, oral, NOW X1, 1 dose, On Mon06/09/22 at 1515, STAT Given 06/09/2022 15:23 EDT 650 mg buprenorphine-naloxone (SUBOXONE) 8-2 mg sublingual film 3 Film 3 Film, sublingual, DAILY, First dose (after last modification) on Mon06/08/22 at 1400, Until Discontinued, STAT Given 06/09/2022 9:20 EDT 3 Film Given 06/08/2022 15:02 EDT 3 Film gabapentin (NEURONTIN) capsule 600 mg 600 mg, oral, 3 TIMES DAILY, First dose on Mon06/09/22 at 0945, Until Discontinued, Routine Given 06/09/2022 15:20 EDT 60 0 mg Given 06/09/2022 10:00 EDT 600 mg ibuprofen (MOTRIN) tablet 800 mg 800 mg, oral, NOW X1, 1 dose, On Mon06/08/22 at 1515, STAT Given 06/08/2022 15:09 EDT 800 mg ibuprofen (MOTRIN) tablet 800 mg 800 mg, oral, EVERY 8 HOURS PRN, Starting on Mon06/09/22 at 0930, Until Mon06/09/22 at 1746, Pain, Routine Given 06/09/2022 10:00 EDT 800 mg OLANZapine (ZYPREXA) 5 mg disintegrating tablet 1 dose, Starting on Mon06/08/22 at 1537, Until Mon06/09/22 at 1746 OLANZapine (ZYPREXA) disintegrating tablet 10 mg 10 mg, oral, AT BEDTIME, First dose on Mon06/08/22 at 2100, Until Discontinued, Routine Given 06/08/2022 21:55 EDT 10 mg OLANZapine (ZYPREXA) disintegrating tablet 15 mg 15 mg, oral, NOW X1, 1 dose, On Mon06/08/22 at 1545, Routine Given 06/08/2022 15:40 EDT 15 mg documented in this encounter Active and Recently Administered Medications Times are shown in EDT. Scheduled Medication Order 06/07/2022 06/08/2022 06/09/2022 acetaminophen (TYLENOL) tablet 650 mg (COMPLETED) 650 mg, oral, NOW X1, 1 dose, On Adrienne 06/09/22 at 1515, STAT 1523 (Given - Provid er: Portia Griffin RN) buprenorphine-naloxone (SUBOXONE) 8-2 mg sublingual film 3 Film 3 Film, sublingual, DAILY, First dose (after last modification) on Mon06/08/22 at 1400, Until Discontinued, STAT 1502 (Given - Provider: Christopher Carrillo RN) 0920 (Given - Provider: Portia Griffin RN) gabapentin (NEURONTIN) capsule 600 mg 600 mg, oral, 3 TIMES DAILY, First dose on Adrienne 06/09/22 at 0945, Until Discontinued, Routine 1000 (Given - Provid er: Portia Griffin RN)1520 (Given - Provider: Portia Griffin RN) ibuprofen (MOTRIN) tablet 800 mg (COMPLETED) 800 mg, oral, NOW X1, 1 dose, On Mon06/08/22 at 1515, STAT 1509 (Given - Provider: Christopher Carrillo RN) OLANZapine (ZYPREXA) disintegrating tablet 10 mg 10 mg, oral, AT BEDTIME, First dose on Mon06/08/22 at 2100, Until Discontinued, Routine 2155 (Given - Provider: Lissette Vallejo RN) OLANZapine (ZYPREXA) disintegrating tablet 15 mg (COMPLETED) 15 mg, oral, NOW X1, 1 dose, On Mon06/08/22 at 1545, Routine 1540 (Given - Provider: Portia Griffin RN) PRN Medication Order 06/07/2022 06/08/2022 06/09/2022 ibuprofen (MOTRIN) tablet 800 mg 800 mg, oral, EVERY 8 HOURS PRN, Starting on Adrienne 06/09/22 at 0930, Until Adrienne 06/09/22 at 1746, Pain, Routine 1000 (Given - Provid er: Portia Griffin, RN) No Frequency Medication Order 06/07/2022 06/08/2022 06/09/2022 OLANZapine (ZYPREXA) 5 mg disintegrating tablet 1 dose, Starting on Mon06/08/22 at 1537, Until Adrienne 06/09/22 at 1746 documented in this encounter Orders Medications Ordered That Carlos ht Not Have Been Administered Count Last Ordered Date First Ordered Date buPROPion (WELLBUTRIN XL) XL tablet 300 mg 1 06/09/2022 buprenorphine-naloxone (SUBO XONE) 8-2 mg sublingual film 3 Film 1 06/08/2022 OLANZapine (ZYPREXA) 5 mg di sintegrating tablet 1 06/08/2022 documented in this encounter Care Teams Multicraft Operator Relationship Specialty Start Date End Date Callum Samayoa DO [address] [place] [address] [address] [place] [address] PCP - General 06/22/09 documented as of this encounter
--- OUTSIDE RECORDS SUMMARY | 2023-09-30 16:07 | XMS_ITS | Encounter Summary ---
Author Organization [facility] Address [address] [place] [address] Care Team Providers Care Hose Handler Name Role Phone Unavailable Primary Care Provider Unavailabl e Encounter Details Date Type Department Care Team (Latest Contact Info) Description 03/07/2001 11:29 EST - 03/07/2001 11:59 EST Hospital Encounter [address] [address] Jose Greenberg MD [address] [place] [id number] Discharge Disposition: Auto Discharge Social History Tobacco Use Types Packs/Day Years Used Date Smoking Tobacco: Never Assessed Sex and Gender Information Value Date Recorded Sex Assigned at Not on file Gender Identity Male 06/08/2022 11:45 EDT Sexual Orientation Not on file documented as of this encounter Discharge Disposition Disposition Code Departure Means Destination Auto Discharge documented in this encounter Plan of Treatment Not on file documented as of this encounter Procedures Procedure Name Priority Date/Time Associated Diagnosis Comments MR EXTREMITY WRIST WO CONTRAST Routine 03/07/2001 12:23 EST documented in this encounter Results * MR EXTREMITY WRIST WO CONTRAST (03/07/2001 12:23 EST) Anatomical Region Laterality Modality Other 03/07/2001 12:2 3 EST Impressions 12/26/2008 0:56 EST IMPRESSION: 1. Magnetic resonance imaging of the shoulder demonstrates advanced acromioclavicular arthritis, as described above, with underlying mass effect and supraspinatus and infraspinatus tendinosis. A small amount of inflammation in the subacromial/subdeltoid bursa is noted. 2. There is thickening of the axillary pouch. 3. There is a slightly greater than 1 cm posterior labral cyst associated with a posteroinferior labral tear and also noted is focal denervation of a portion of the infraspinatus muscle, which may be secondary to a compressive effect. /rml Narrative 12/26/2008 0:56 EST RIGHT SHOULDER PAIN, RIGHT AC JOINT TIMES 20 MONTHS R/O AC ARTHRITIS MRI OF THE RIGHT SHOULDER 03/07/2001 12:23 CLINICAL HISTORY: Right shoulder pain. TECHNIQUE: Oblique coronal, sagittal and axial proton-density and fat saturated images of the shoulder were obtained. FINDINGS: There is severe degenerative change of the acromioclavicular joint, which contains an appreciable amount of fluid. There is bony proliferative change inferiorly causing mass effect upon the supraspinatus musculotendinous junction. There is fraying of the distal infraspinatus tendon along its articular and bursal-sided margins. There is mild cystic change in the humeral head adjacent to the infraspinatus insertion. There is tendinosis of the supraspinatus tendon. The subscapularis is intact. The teres minor tendon is intact, however, note is made of mild focal atrophy of the inferior central fibers of the teres minor muscle. Note is also made of a posterior labral cyst, which measures over 1 cm in maximal dimension and is encroaching upon the spinal glenoid notch. Given the above findings, the cyst may be compressing the nerve to the infraspinatus muscle. This should be correlated clinically. There is a prominent superior sublabral sulcus. Intermediate signal is noted within the anterior labrum consistent with degeneration. There is linear signal within the posteroinferior aspect of the posterior labrum consistent with a labral tear, which appears to be communicating with this posterior labral cyst. The posterior capsule is intact. There is thickening of the axillary pouch. Long head of the biceps is maintained anatomically. There is intermediate signal within the intra-articular long head of the biceps, which may represent mild tendinosis. Cartilaginous surfaces are intact. There is minimal bony proliferative change off the inferior margin of the humeral head. There is thickening of the middle glenohumeral ligament and it's slightly indistinct in appearance, however, this may be due to internal rotation of the humerus. Marrow signal is unremarkable. Procedure Note Chase Hernandez, PT - 12/26/2008 RIGHT SHOULDER PAIN, RIGHT AC JOINT TIMES 20 MONTHS R/O AC ARTHRITIS MRI OF THE RIGHT SHOULDER 03/07/2001 12:23 CLINICAL HISTORY: Right shoulder pain. TECHNIQUE: Oblique coronal, sagittal and axial proton-density and fat saturated images of the shoulder were obtained. FINDINGS: There is severe degenerative change of the acromioclavicular joint, which contains an appreciable amount of fluid. There is bony proliferative change inferiorly causing mass effect upon the supraspinatus musculotendinous junction. There is fraying of the distal infraspinatus tendon along its articular and bursal-sided margins. There is mild cystic change in the humeral head adjacent to the infraspinatus insertion. There is tendinosis of the supraspinatus tendon. The subscapularis is intact. The teres minor tendon is intact, however, note is made of mild focal atrophy of the inferior central fibers of the teres minor muscle. Note is also made of a posterior labral cyst, which measures over 1 cm in maximal dimension and is encroaching upon the spinal glenoid notch. Given the above findings, the cyst may be compressing the nerve to the infraspinatus muscle. This should be correlated clinically. There is a prominent superior sublabral sulcus. Intermediate signal is noted within the anterior labrum consistent with degeneration. There is linear signal within the posteroinferior aspect of the posterior labrum consistent with a labral tear, which appears to be communicating with this posterior labral cyst. The posterior capsule is intact. There is thickening of the axillary pouch. Long head of the biceps is maintained anatomically. There is intermediate signal within the intra-articular long head of the biceps, which may represent mild tendinosis. Cartilaginous surfaces are intact. There is minimal bony proliferative change off the inferior margin of the humeral head. There is thickening of the middle glenohumeral ligament and it's slightly indistinct in appearance, however, this may be due to internal rotation of the humerus. Marrow signal is unremarkable. IMPRESSION IMPRESSION: 1. Magnetic resonance imaging of the shoulder demonstrates advanced acromioclavicular arthritis, as described above, with underlying mass effect and supraspinatus and infraspinatus tendinosis. A small amount of inflammation in the subacromial/subdeltoid bursa is noted. 2. There is thickening of the axillary pouch. 3. There is a slightly greater than 1 cm posterior labral cyst associated with a posteroinferior labral tear and also noted is focal denervation of a portion of the infraspinatus muscle, which may be secondary to a compressive effect. /silvio Jose Greenberg MD IMG MRI ORDERABLES documented in this encounter Visit Diagnoses Not on filedocumented in this encounter
--- OUTSIDE RECORDS SUMMARY | 2023-09-30 16:07 | XMS_ITS | Encounter Summary ---
Author Organization [facility] Address [address] [place] [address] Care Team Providers Care Household Manager Name Role Phone Callum Samayoa DO Primary Care Provider [phone]- [phone] Encounter Details Date Type Department Care Team (Latest Contact Info) Description 06/08/2022 Travel Social History Tobacco Use Types Packs/Day Years [...] 10:42 EDT documented as of this encounter Functional Status Functional Status Response Date of Assess ment Are you deaf or do you have serious difficulty h earing? No 06/08/2022 documented as of this encounter Plan of Treatment Not on file documented as of this encounter Visit Diagnoses Not on filedocumented in this encounter Care Teams Household Manager Relationship Specialty Start Date End Date Callum Samayoa DO [facility] [place] [address] [place] [id number] PCP - General 06/22/09 documented as of this encounter
--- OUTSIDE RECORDS SUMMARY | 2023-09-30 16:07 | XMS_ITS | Encounter Summary ---
Author Organization [facility] Address [address] [place] [address] Care Team Providers Care Records Tech Name Role Phone Callum Samayoa DO Primary Care Provider [phone]- [phone] Encounter Details Date Type Department Care Team (Late st Contact Info) Description 07/10/2021 Lab Requisition [facility] Pathology & Laboratory Medicine - [address] [address] Outr Resulting Lab, Provider Social History Tobacco Use Types Packs/Day Years Used Date Smoking Tobacco: Never Assessed Sex and Gender Information Value Date Recorded Sex Assigned at Not on file Gender Identity Male 06/08/2022 11:45 EDT Sexual Orientation Not on file documented as of this encounter Plan of Treatment Not on file documented as of this encounter Procedures Procedure Name Priority Date/Time Associated Diagnosis Comments HCV RNA DETECT QUANT Today 07/10/2021 0:15 EDT ACUTE HEPATITIS PROFILE Routine 07/10/2021 0:15 EDT documented in this encounter Results * (ABNORMAL) HCV RNA DETECT QUANT (07/10/2021 0:15 EDT) HCV RNA Qualitative Detected( A) Undetected 07/14/2021 14:00 EDT [facility] HCV RNA Quantitative 15,700(H) Undetected IU/mL 07/14/2021 14:00 EDT [facility] Blood VENOUS BLOOD / Unknown 07/10/2021 0:15 EDT 07/10/2021 21:41 EDT Narrative [facility] - 07/14/2021 14:00 EDT The quantification range of this assay is 15 IU/mL to 100,000,000 IU/mL. Testing was performed using the Ty HCV test ([employer] with the ty 6800 System. Provider Outr Resulting Lab CHEMISTRY & BLOOD GAS ORDERABLES Performing Organization Address [facility] de Phone Number [facility] [address] [place] [address] * (ABNORMAL) ACUTE HEPATITIS PROFILE (07/10/2021 0:15 EDT) Hep B Surface Ag Negative Negative 07/12/2021 13:10 EDT [facility] Hep C Antibody Reactive(A) Negative 13:10 EDT [facility] Comment: Supplemental testing for HCV RNA is ordered to rule out active HCV infection. Hepatitis A Antibody, IgM Negative Negative 07/12/2021 13:10 EDT [facility] Comment:The results of this assay can be falsely lowered due to the consumption of Biotin. Hepatitis B Core Ab, Total Negative Negative 07/12/2021 13:10 EDT [facility] Blood VENOUS BLOOD / Unknown 07/10/2021 0:15 EDT 07/10/2021 21:41 EDT Provider Outr Resulting Lab CHEMISTRY & BLOOD GAS ORDERABLES Performing Organization Address [facility] de Phone Number [facility] [address] [place] [address] documented in this encounter Visit Diagnoses Not on filedocumented in this encounter Care Teams Records Tech Relationship Specialty Start Date End Date Callum Samayoa DO [address] [place] [address] PCP - General 06/22/09 documented as of this encounter
--- OUTSIDE RECORDS SUMMARY | 2023-09-30 16:07 | XMS_ITS | Encounter Summary ---
Author Organization [facility] Address [address] [place] [address] Care Team Providers Care Flight Inspector Name Role Phone Callum Samayoa DO Primary Care Provider [phone]- [phone] Encounter Details Date Type Department Care Team (Late st Contact Info) Description 01/18/2021 Lab Requisition [facility] Pathology & Laboratory Medicine - [address] [address] Outr Resulting Lab, Provider Social History Tobacco [...] Procedure Name Priority Date/Time Associated Diagnosis Comments ZZCOVID-19 TEST [facility] PCR Today 01/18/2021 11:10 EST COVID-19 TESTING Routine 01/18/2021 11:1 0 EST documented in this encounter Results * COVID-19 TEST [facility] PCR (01/18/2021 11:10 EST) Swab 01/18/2021 11:1 0 EST 01/18/2021 22:35 EST Provider Outr Resulting Lab MICROBIOLOGY - GENERAL ORDERABLES [facility] [address] [place] [address] * COVID-19 TESTING (01/18/2021 11:10 EST) COVID-19 rt-PCR Result Negative Negative 01/19/2021 20:03 EST [facility] Comment: This test has not been FDA cleared or approved. This test has been authorized by FDA under an EUA for use by authorized laboratories. This test has been authorized only for detection of nucleic acid from 2019-nCoV, not for any other viruses or pathogens. This test is only authorized for the duration of the declaration that circumstances exist justifying the authorization of emergency use of in vitro diagnostic tests for detection and/or diagnosis of 2019-nCoV under section 564(b)(1) of Act, 21 U.S.C ?? 360bbb-3(b) (1), unless the authorization is terminated or revoked sooner. Negative results do not preclude 2019-nCoV infection and should not be used as the sole basis for treatment or other patient management decisions. Negative results must be combined with clinical observations, patient history, and epidemiological information. Testing was performed using the ty SARS-CoV-2 assay ([employer] on the Ty 6800 System Performing Lab Ty 6800 [facility] 01/19/2021 20:03 EST [facility] Swab 01/18/2021 11:1 0 EST 01/18/2021 22:35 EST Provider Outr Resulting Lab MICROBIOLOGY - GENERAL ORDERABLES [facility] [address] [place] [address] documented in this encounter Visit Diagnoses Not on filedocumented in this encounter Care Teams Flight Inspector Relationship Specialty Start Date End Date Callum Samayoa DO [address] [place] [address] [place] [address] PCP - General 06/22/09 documented as of this encounter
--- OUTSIDE RECORDS SUMMARY | 2023-09-30 16:07 | XMS_ITS | Encounter Summary ---
Author Organization [facility] Address [address] [facility] [place] [address] Care Team Providers Care Icu Manager Name Role Phone None Primary Care Provider Unavailabl e Encounter Details Date Type Department Care Team (Late st Contact Info) Description 10/30/2020 Telephone Orthopaedics at [address] [phone] Keyana Meehan LPN Social History Tobacco Use Types Packs/Day Years [...] encounter Miscellaneous Notes * Telephone Encounter - Keyana Meehan LPN - 10/30/2020 10:19 AM EDT Received a call from nurse Shila at [facility]. She is asking for an appointment for [place]. He has Lt knee pain and swelling. NKI. Appointment scheduled with xrays. documented in this encounter Plan of Treatment Not on file documented as of this encounter Visit Diagnoses Not on filedocumented in this encounter Care Teams Icu Manager Relationship Specialty Start Date End Date None None PCP - General 09/06/20 04/18/22 documented as of this encounter
--- OUTSIDE RECORDS SUMMARY | 2023-09-30 16:07 | XMS_ITS | Encounter Summary ---
Author Organization [facility] Address [address] [facility] [place] [address] Care Team Providers Care Licensed Nuclear Control Room Operator Name Role Phone Emmanuel Ramirez DNP Primary Care Provider [phone] Encounter Details Date Type Department Care Team (Late st Contact Info) Description 07/07/2022 Ancillary Procedure Radiology Library at [facility] [place] [phone] Emmanuel Ramirez DNP [address] [place], [place] [id number] Social History Tobacco Use Types Packs/Day Years [...] Procedure Name Priority Date/Time Associated Diagnosis Comments FILM LIBRARY STORAGE ONLY MR SPINE Routine 07/07/2022 12:00 AM EDT documented in this encounter Results * Film Library- Storage Only MR Spine (07/07/2022 12:00 AM EDT) Narrative [facility] - 07/13/2022 4:54 AM EDT This exam is auto-finalizing. It's purpose is for storage only. Emmanuel Ramirez DNP IMG FILM LIBRARY OR DERABLES [place], [place] documented in this encounter Visit Diagnoses Not on filedocumented in this encounter Care Teams Licensed Nuclear Control Room Operator Relationship Specialty Start Date End Date Emmanuel Ramirez DNP [address] [place] [id number] PCP - General Family Medicine 04/19/22 documented as of this encounter
--- OUTSIDE RECORDS SUMMARY | 2023-09-30 16:07 | XMS_ITS | Encounter Summary ---
Author Organization [facility] [place] [address] Care Team Providers Care Packaging Sales Name Role Phone Emmanuel Ramirez DNP Primary Care Provider Encounter Details Date Type Department Care Team (Late st Contact Info) Description 07/29/2022 Telephone [facility] [place] [phone] Lacie Zamudio LNA Social History Tobacco Use Types Packs/Day Years [...] encounter Miscellaneous Notes * Telephone Encounter - Lacie Zamudio - 07/29/2022 12:04 PM EDT Tried to otis patient to get correct address but there was no answer and no way to leave a message for the patient. Because of his bad address documented in this encounter Plan of Treatment Not on file documented as of this encounter Visit Diagnoses Not on filedocumented in this encounter Care Teams Packaging Sales Relationship Specialty Start Date End Date Emmanuel Ramirez DNP [address] [place] [address] PCP - General Family Medicine 04/19/22 documented as of this encounter
--- OUTSIDE RECORDS SUMMARY | 2023-09-30 16:07 | XMS_ITS | Encounter Summary ---
Author Organization [facility] [place] [address] Care Team Providers Care Data Collection Specialist Name Role Phone Unknown Primary Care Provider Unavailabl e Encounter Details Date Type Department Care Team (Late st Contact Info) Description 06/27/2012 Abstract [facility] Information Services [address] [facility] [place] [phone] Provider, His [place] MD Social History Tobacco Use Types Packs/Day Years [...] Procedure Name Priority Date/Time Associated Diagnosis Comments CBC (WITH DIFF) Routine 06/27/2012 9:50 AM EDT documented in this encounter Results * (ABNORMAL) CBC (with Diff) (06/27/2012 9:50 AM EDT) Baso Absolute 0.03(Exte rnal Lab) 0.0 - 0.2 THOUS [facility] RESULT CONVERSION Comment: Sourced from [facility] [place] Conversion Basophil % 0.6(Exter nal Lab) 0.0 - 2.0 percent [facility] RESULT CONVERSION Comment: Sourced from [facility] [place] Conversion Eosinophils Abs 0.36(Exte rnal Lab) 0.0 - 0.8 THOUS [facility] RESULT CONVERSION Comment: Sourced from [facility] [place] Conversion Eos % 6.6(Exter nal Lab) 0.0 - 7.0 percent [facility] RESULT CONVERSION Comment: Sourced from [facility] [place] Conversion Hematocrit 47.1(Exte rnal Lab) 42.0 - 52.0 percent [facility] RESULT CONVERSION Comment: Sourced from [facility] [place] Conversion Hemoglobin 16.2(Exte rnal Lab) 14.0 - 18.0 g/dl [facility] RESULT CONVERSION Comment: Sourced from [facility] [place] Conversion White Blood Cell 5.40(Exte rnal Lab) 4.8 - 10.8 THOUS [facility] RESULT CONVERSION Comment: Sourced from [facility] [place] Conversion Large Unstained Cells ABS Count 0.10(Exte rnal Lab) 0.00 - 0.40 THOUS [facility] RESULT CONVERSION Comment: Sourced from [facility] [place] Conversion Large Unstained Cells % 1.9(Exter nal Lab) 0.0 - 4.0 percent [facility] RESULT CONVERSION Comment: Sourced from [facility] [place] Conversion Lymphocytes Abs 2.01(Exte rnal Lab) 0.90 - 5.20 THOUS [facility] RESULT CONVERSION Comment: Sourced from [facility] [place] Conversion Lymph % 37.3(Exte rnal Lab) 19.0 - 48.0 percent [facility] RESULT CONVERSION Comment: Sourced from [facility] [place] Conversion Mean Cell Hemoglobin 32.8(EXTE RNAL/ABN) 27 - 31 pg [facility] RESULT CONVERSION Comment: Sourced from [facility] [place] Conversion Mean Cell Hemoglobin Concentration 34.3(Exte rnal Lab) 33 - 37 g/dl [facility] RESULT CONVERSION Comment: Sourced from [facility] [place] Conversion Mean Cell Volume 95.6(EXTE RNAL/ABN) 80 - 94 FL [facility] RESULT CONVERSION Comment: Sourced from [facility] [place] Conversion Monocyte Abs 0.27(Exte rnal Lab) 0.16 - 1.00 THOUS [facility] RESULT CONVERSION Comment: Sourced from [facility] [place] Conversion Monocyte % 5.1(Exter nal Lab) 3.4 - 9.0 percent [facility] RESULT CONVERSION Comment: Sourced from [facility] [place] Conversion Mean Platelet Volume 8.8(Exter nal Lab) 7.2 - 11.1 FL [facility] RESULT CONVERSION Comment: Sourced from [facility] [place] Conversion ANC 2.62(Exte rnal Lab) 1.90 - 8.00 THOUS [facility] RESULT CONVERSION Comment: Sourced from [facility] [place] Conversion Neutrophil % 48.6(Exte rnal Lab) 40.0 - 74.0 percent [facility] RESULT CONVERSION Comment: Sourced from [facility] [place] Conversion Platelet 164(Exter nal Lab) 130 - 400 THOUS [facility] RESULT CONVERSION Comment: Sourced from [facility] [place] Conversion Red Blood Cell 4.92(Exte rnal Lab) 4.7 - 6.1 MILLIONS [facility] RESULT CONVERSION Comment: Sourced from [facility] [place] Conversion RDW coefficient of variation 11.2(EXTE RNAL/ABN) 11.5 - 14.5 percent [facility] RESULT CONVERSION Comment: Sourced from [facility] [place] Conversion 06/27/2012 9:50 AM EDT His [place] Provider HEMATOLOGY ORDERAB LES [facility] RESULT CON[facility] documented in this encounter Visit Diagnoses Not on filedocumented in this encounter Care Teams Data Collection Specialist Relationship Specialty Start Date End Date Unknown None PCP - General 03/02/11 09/05/20 documented as of this encounter
--- OUTSIDE RECORDS SUMMARY | 2023-09-30 16:07 | XMS_ITS | Encounter Summary ---
Author Organization [facility] [place] [address] Care Team Providers Care Cost Estimating Clerk Name Role Phone Unknown Primary Care Provider Unavailabl e Encounter Details Date Type Department Care Team (Late st Contact Info) Description 04/20/2012 [place] [phone] Chaya Mckeon PA [address] [place] [address] Social History Tobacco Use Types Packs/Day Years [...] Procedure Name Priority Date/Time Associated Diagnosis Comments XR SHOULDER COMPLETE Routine 04/20/2012 2:09 PM EDT documented in this encounter Results * XR SHOULDER COMPLETE (04/20/2012 2:09 PM EDT) Anatomical Region Laterality Modality Other 04/20/2012 2:09 PM EDT Narrative 04/24/2012 4:23 PM EDT External Results Sarwat Bush Final Report EXAMINATION: ??[facility]K 4000 - SHOULDER (COMPLETE) ?[id number] ??- RIGHT DIAGNOSIS: ?[facility] JOINT PAIN-SHOULDER REASON: ? 719.41 IN MENS DRESSING ROOM RESULT: ? Clinical Indication: ??Shoulder pain. Findings: ?Four views demonstrate normal osseous alignment. ??There are, however, degenerative changes through the glenohumeral joint characterized by joint space narrowing, subchondral sclerosis and prominent inferior aspect osteophytosis. ??In contrast, I see only mild degenerative change at the AC joint. ??There is a small osseous fragment projecting cephalad to the AC joint as well. ??This may relate to old trauma. ??I see no evidence for an acute injury. IMPRESSION: ? Advanced right glenohumeral osteoarthritis. INTERPRETING PHYSICIAN: ??LEVI BARTON M.D. Apr 23 2012 ??8:04A ? TRANSCRIBED BY/DATE: ?? ARN on Apr 23 2012 ??8:42A ELECTRONICALLY AUTHORIZED BY: ?? LEVI BARTON M.D. ? Apr 24 2012 ??4:23P Procedure Note Levi Barton MD - 12/01/2016 External Results Sarwat Bush Final Report EXAMINATION: [facility] 4000 - SHOULDER (COMPLETE) [id number] - RIGHT DIAGNOSIS: [facility] JOINT PAIN-SHOULDER REASON: 719.41 IN MENS DRESSING ROOM RESULT: Clinical Indication: Shoulder pain. Findings: Four views demonstrate normal osseous alignment. Thereare, however, degenerative changes through the glenohumeral jointcharacterized by joint space narrowing, subchondral sclerosis and prominent inferior aspect osteophytosis. In contrast, I see only mild degenerative changeat the AC joint. There is a small osseous fragment projecting cephalad tothe AC joint as well. This may relate to old trauma. I see no evidence zee acute injury. IMPRESSION: Advanced right glenohumeral osteoarthritis. INTERPRETING PHYSICIAN: LEVI BARTON M.D. Apr 23 2012 8:04A TRANSCRIBED BY/DATE: ARN on Apr 23 2012 8:42A ELECTRONICALLY AUTHORIZED BY: LEVI BARTON M.D. Apr 24 2012 4:23P Chaya BUTTS PACS IMAGES documented in this encounter Visit Diagnoses Not on filedocumented in this encounter Care Teams Cost Estimating Clerk Relationship Specialty Start Date End Date Unknown None PCP - General 03/02/11 09/05/20 documented as of this encounter
--- OUTSIDE RECORDS SUMMARY | 2023-09-30 16:07 | XMS_ITS | Encounter Summary ---
Author Organization [facility] [place] [address] Care Team Providers Care Senior Marketing Analyst Name Role Phone Unknown Primary Care Provider Unavailabl e Encounter Details Date Type Department Care Team (Late st Contact Info) Description 06/08/2012 [place] [phone] Chaya Mckeon PA [address] [place] [address] Social History Tobacco Use Types Packs/Day Years [...] Name Priority Date/Time Associated Diagnosis Comments XR FLOURO ARTHROGRAM Routine 06/08/2012 11:30 AM EDT documented in this encounter Results * XR Flouro Arthrogram (06/08/2012 11:30 AM EDT) Anatomical Region Laterality Modality Other 06/08/2012 11:3 0 AM EDT Narrative 06/12/2012 3:19 PM EDT External Results Sarwat Bush Final Report EXAMINATION: ??RAD 8166 - ARTHRO MAJOR JT RIGHT ?[id number] DIAGNOSIS: ?RT SHOULDER INJURT, PAIN REASON: ? RT SHOULDER INJURT, PAIN RESULT: ? Clinical indication: ??Osteoarthritis. ??Shoulder pain. Technique: ??The nature and the purpose of procedure (right shoulder Kenalog injection) was described to the patient in detail. ??The risks and benefits were discussed and all questions were answered. The patient then offered informed consent. ?? With the patient supine, the right shoulder was prepped routine. Local anesthesia was obtained utilizing 2% lidocaine injection. ??I placed a 22-gauge needle into the glenohumeral joint utilizing fluoroscopic control. ??I confirmed intracapsular positioning by instilling 3 mL of Omnipaque-240 contrast agent together with 3 mL of air. ??Subsequently, I infused 20 mg of Kenalog suspension together with 6 mL of 0.25% bupivacaine. The patient tolerated the procedure well and there were no immediate complications. IMPRESSION: ? 1. ??Successful right shoulder Kenalog injection. 2. Advanced glenohumeral osteoarthritis. INTERPRETING PHYSICIAN: ??LEVI BARTON M.D. May ??4 2012 ??4:53P ? TRANSCRIBED BY/DATE: ?? ARN on June ??4 2012 ??5:04P ELECTRONICALLY AUTHORIZED BY: ?? LEVI BARTON M.D. ? May ??7 2012 ??3:19P Procedure Note Levi Barton MD - 09/21/2016 External Results Sarwat Bush Final Report EXAMINATION: RAD 8166 - ARTHRO MAJOR JT RIGHT [id number] DIAGNOSIS: RT SHOULDER INJURT, PAIN REASON: RT SHOULDER INJURT, PAIN RESULT: Clinical indication: Osteoarthritis. Shoulder pain. Technique: The nature and the purpose of procedure (right shoulderKenalog injection) was described to the patient in detail. The risks andbenefits were discussed and all questions were answered. The patient then offered informed consent. With the patient supine, the right shoulder wasprepped routine. Local anesthesia was obtained utilizing 2% lidocaine injection.I placed a 22-gauge needle into the glenohumeral joint utilizingfluoroscopic control. I confirmed intracapsular positioning by instilling 3 mL of Omnipaque-240 contrast agent together with 3 mL of air. Subsequently, I infused 20 mg of Kenalog suspension together with 6 mL of 0.25%bupivacaine. The patient tolerated the procedure well and there were no immediate complications. IMPRESSION: 1. Successful right shoulder Kenalog injection. 2. Advanced glenohumeral osteoarthritis. INTERPRETING PHYSICIAN: LEVI BARTON M.D. Jun 09 2012 4:53P TRANSCRIBED BY/DATE: SEGUN on Jun 09 2012 5:04P ELECTRONICALLY AUTHORIZED BY: LEVI BARTON M.D. Jun 12 2012 3:19P Chaya BUTTS PACS IMAGES documented in this encounter Visit Diagnoses Not on filedocumented in this encounter Care Teams Senior Marketing Analyst Relationship Specialty Start Date End Date Unknown None PCP - General 03/02/11 09/05/20 documented as of this encounter
--- OUTSIDE RECORDS SUMMARY | 2023-09-30 16:07 | XMS_ITS | Encounter Summary ---
Author Organization [facility], [facility] Address [facility] [place] [address] Care Team Providers Care Picture Engraver Name Role Phone None Primary Care Provider Unavailabl e Encounter Details Date Type Department Care Team (Latest Contact Info) Description 10/19/2020 2:45 PM EDT - 10/19/2020 2:59 PM EDT Hospital Encounter XRay at [address] [phone] Brian Cooper MD [address] [place] [address] [place] [address] Left knee pain, unspecified chronicity Discharge Disposition: Home Social History Tobacco Use [...] Name Priority Date/Time Associated Diagnosis Comments XR KNEE AP & LAT LEFT Routine 10/19/2020 3:16 PM EDT Left knee pain, unspecified chronicity documented in this encounter Results * XR Knee 1-2 Views Left (Generic) (10/19/2020 3:16 PM EDT) Anatomical Region Laterality Modality Knee Left Computed Radiogr aphy Impressions 10/20/2020 7:40 AM EDT Negative left knee. Thank you for letting us participate in the care of this patient. ??If you are a health care provider and have any questions regarding this report, please contact the number below. ??For patients who have questions please contact the health child care group leader that requested your imaging first. ? Electronically signed by: LEVI BARTON MD, [facility] ([phone]), at 10/20/2020 7:40 AM Narrative 10/20/2020 7:40 AM EDT EXAMINATION: XR KNEE 1-2 VIEWS LEFT (GENERIC) CLINICAL HISTORY: Continued left knee pain TECHNIQUE: 2 views LEFT knee COMPARISON: None FINDINGS: Normal left knee alignment. No trauma, joint effusion, nor significant arthropathy. Procedure Note Levi Barton MD - 10/20/2020 EXAMINATION: XR KNEE 1-2 VIEWS LEFT (GENERIC) CLINICAL HISTORY: Continued left knee pain TECHNIQUE: 2 views LEFT knee COMPARISON: None FINDINGS: Normal left knee alignment. No trauma, joint effusion, nor significant arthropathy. IMPRESSION Negative left knee. Thank you for letting us participate in the care of this patient. If youare a health care provider and have any questions regarding this report,please contact the number below. For patients who have questions please contactthe health child care group leader that requested your imaging first. Electronically signed by: LEVI BARTON MD, [facility]([phone]), at 10/20/2020 7:40 AM Brian Cooper MD IMG DX ORDERABLES documented in this encounter Visit Diagnoses Diagnosis Left knee pain, unspecified chronicity documented in this encounter Care Teams Picture Engraver Relationship Specialty Start Date End Date None None PCP - General 09/06/20 04/18/22 documented as of this encounter
--- OUTSIDE RECORDS SUMMARY | 2023-09-30 16:07 | XMS_ITS | Encounter Summary ---
Author Organization [facility] [place] [address] Care Team Providers Care Edging Catcher Name Role Phone Unknown Primary Care Provider Unavailabl e Encounter Details Date Type Department Care Team (Late st Contact Info) Description 04/20/2012 1:30 PM EDT Procedure visit [address] [phone] Radiology, [place] Social History Tobacco Use Types Packs/Day Years Used Date Smoking Tobacco: Never Assessed Sex and Gender Information Value Date Recorded Sex Assigned at Not on file Gender Identity Not on file Sexual Orientation Not on file documented as of this encounter Plan of Treatment Not on file documented as of this encounter Visit Diagnoses Not on filedocumented in this encounter Care Teams Edging Catcher Relationship Specialty Start Date End Date Unknown None PCP - General 03/02/11 09/05/20 documented as of this encounter
--- OUTSIDE RECORDS SUMMARY | 2023-09-30 16:07 | XMS_ITS | Encounter Summary ---
Author Organization [facility] Address [address] [place] [address] Care Team Providers Care Cashiers Bussers Food Runners Name Role Phone YaoCallum Primary Care Provider [phone] Encounter Details Date Type Department Care Team (Late st Contact Info) Description 06/24/2009 Results Only *[facility] - [place] [address] [place] [address] Jad Burt MD [address] [facility], [facility] [address] [place] [address] Social History Tobacco Use Types Packs/Day Years Used Date Smoking Tobacco: Never Assessed Sex and Gender Information Value Date Recorded Sex Assigned at Not on file Gender Identity Male 06/08/2022 11:45 EDT Sexual Orientation Not on file documented as of this encounter Plan of Treatment Not on file documented as of this encounter Procedures Procedure Name Priority Date/Time Associated Diagnosis Comments IR TRANSCATH BX 06/24/2009 11:35 EDT SURGICAL PATHOLOGY Routine 06/24/2009 0:00 EDT documented in this encounter Results * IR TRANSCATH BX (06/24/2009 11:35 EDT) Anatomical Region Laterality Modality Other 06/24/2009 11:3 5 EDT 06/25/2009 15:25 EDT Narrative 06/25/2009 15:25 EDT Technique and Findings: Written consent was obtained. The patient was prepped and draped in sterile fashion. 1% lidocaine was used for local analgesia. Conscious sedation was administered with the monitoring of the patient's heart rate, blood pressure, respiratory rate, and oxygen saturation. Sonographic guidance was used to gain access to the right internal jugular vein. The right internal jugular vein was identified as patent and all ultrasound images were recorded in the patient's permanent medical record. ??A guidewire was passed into the vein under fluoroscopic guidance. Guidewire and catheter were used to gain access to the right hepatic vein. A right hepatic venogram was performed to confirm position. The diagnostic catheter was exchanged over a guidewire for a balloon occlusion pressure catheter. A balloon occlusion portal pressure was measured at 11 torr and free hepatic vein pressure measurements was recorded at 10 torr. IVC pressure was recorded at 8 torr and right atrial pressure was recorded at 8 torr. The pressure catheter was exchanged over guidewire for a biopsy sheath. Five 19-gauge core biopsies were obtained under fluoroscopic guidance and submitted to laboratory in formalin. Finally, all catheters and wires were removed and hemostasis was achieved with manual pressure, a pressure bandage, and a hemostasis patch. The patient tolerated the procedure well without complication. ?? Impression: 1. Successful, uncomplicated pressure measurements with a gradient of 1 torr. 2. Successful, uncomplicated transjugular liver biopsy. Procedure Note 06/25/2009 Technique and Findings: Written consent was obtained. The patient was prepped and draped in sterile fashion. 1% lidocaine was used for local analgesia. Conscious sedation was administered with the monitoring of the patient's heart rate, blood pressure, respiratory rate, and oxygen saturation. Sonographic guidance was used to gain access to the right internal jugular vein. The right internal jugular vein was identified as patent and all ultrasound images were recorded in the patient's permanent medical record. A guidewire was passed into the vein under fluoroscopic guidance. Guidewire and catheter were used to gain access to the right hepatic vein. A right hepatic venogram was performed to confirm position. The diagnostic catheter was exchanged over a guidewire for a balloon occlusion pressure catheter. A balloon occlusion portal pressure was measured at 11 torr and free hepatic vein pressure measurements was recorded at 10 torr. IVC pressure was recorded at 8 torr and right atrial pressure was recorded at 8 torr. The pressure catheter was exchanged over guidewire for a biopsy sheath. Five 19-gauge core biopsies were obtained under fluoroscopic guidance and submitted to laboratory in formalin. Finally, all catheters and wires were removed and hemostasis was achieved with manual pressure, a pressure bandage, and a hemostasis patch. The patient tolerated the procedure well without complication. Impression: 1. Successful, uncomplicated pressure measurements with a gradient of 1 torr. 2. Successful, uncomplicated transjugular liver biopsy. Jad Burt MD [facility] IR ORDERABLES * SURGICAL PATHOLOGY (06/24/2009 0:00 EDT) Pathology Report: SURGICAL PATHOLOGY REPORT ? Reports generated via electronic interface contain original data; ? however they are lacking the format of the original report. ? Caution should be taken when reading/interpreti ng unformatted reports. ? Name: ? NICK CHIU ? Accession #: ? [id number] ? : ? 1970 (Age: 38) ??M ? Collect Date: ? 06/24/2009 ? Location: ? [facility] ? Receive Date: ? 06/24/2009 ? Provider: ALEX BENAVIDEZ MD ? Copy to: JAD FERRENTINO MD ? CALLUM F YAO DO ? Final Pathologic Diagnosis: ? Liver, right lobe, needle core biopsy: ? 1. 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 ??See comment. ? Comment: ? The trichrome stain reveals a distorted architecture with well-formed ? bridging fibrosis. ??The portal tracts reveal a chronic inflammatory infiltrate ?? consisting predominantly of lymphocytes and scattered eosinophils associated ? with mild interface hepatitis. ??The lobules are within normal limits and reveal mild steatosis (20%) and scattered acidophil bodies. ??The biopsy is negative for cholestasis, Gale's hyalin and ground glass cytoplasmic changes. ??PAS-amylase and iron stains are negative for abnormal findings. ??(Dr. Perkins)/kmm ? Document reviewed and electronically signed by: ? Jaylin Weir MD ? Report ??Date: 06/26/2009 16:28 ? By the signature above, the attending physician certifies that he/she has ? personally conducted a gross and/or microscopic examination of the described ? specimens and rendered or confirmed the above diagnosis. ? Specimen(s) Received: ? Right lobe liver ? Clinical History: ? Hep C ? Gross Description: ? Received in ??formalin labelled [place], Nick and liver bx are six ?? watts-white cylinders of tissue ranging from 0.5 to 1.4 cm in length, each ? measuring 0.1 cm in diameter. ??The specimens are submitted entirely as (A1) and (A2). ??Iron, trichrome and PAS-amylase stains are requested. ??(Herrera Bridges)/lgk ? End of Report ? [facility] 06/24/2009 06/24/2009 14: 15 EDT Alex Benavidez MD PATHOLOGY ORDER [facility] [address] [place] [address] documented in this encounter Visit Diagnoses Not on filedocumented in this encounter Care Teams Cashiers Bussers Food Runners Relationship Specialty Start Date End Date Callum Samayoa, DO [address] [place] [address] PCP - General 06/22/09 documented as of this encounter
--- OUTSIDE RECORDS SUMMARY | 2023-09-30 16:07 | XMS_ITS | Encounter Summary ---
[place] [address] Care Team Providers Care Roll Or Tape Edge Machine Operator Name Role Phone Emmanuel Ramirez DNP Primary Care Provider Encounter Details Date Type Department Care Team (Late st Contact Info) Description 07/29/2022 Telephone [place] [phone] Lacie Zamudio LNA Social History Tobacco Use [...] on filedocumented in this encounter Care Teams Roll Or Tape Edge Machine Operator Relationship Specialty Start Date End Date Emmanuel Ramirez DNP [address] [place] [address] PCP - General Family Medicine 04/19/22 documented as of this encounter
--- OUTSIDE RECORDS SUMMARY | 2023-09-30 16:07 | XMS_ITS | Encounter Summary ---
Author Organization [facility] Address [facility] [place] [address] Care Team Providers Care Advanced Analytics Associate Name Role Phone None Primary Care Provider Unavailabl e Reason for Visit * Reason Comments Left Knee Pain Encounter Details Date Type Department Care Team (Late st Contact Info) Description 11/06/2020 9:00 AM EDT Office Visit Orthopaedics at [address] [phone] Aryan Pendleton PA [address] [place] [address] [place] [address] Left knee pain, unspecified chronicity; Primary osteoarthritis of left knee Social History Tobacco Use Types Packs/Day Years [...] on file documented as of this encounter Last Filed Vital Signs Vital Sign Reading Time Taken Comments Blood Pressure - - Pulse 71 11/06/2020 9:06 AM EDT Temperature - - Respiratory Rate - - Oxygen Saturation 97% 11/06/2020 9:06 AM EDT Inhaled Oxygen Concentration - - Weight - - Height - - Body Mass Index - - documented in this encounter Progress Notes * Aryan Pendleton PA - 11/06/2020 9:00 AM EDT Name: Montana Monet : 1970 PCP: None Date: 11/06/20 Chief Complaint: left knee pain SUBJECTIVE History of Present Illness: [place] is a 50-year-old male in the [employer] who is here for evaluation of a left knee injury sustained on 08/26/2020 when he hyperextended the left knee when he slipped on a wet floor. Today patient states that he slipped on a wet floor and hyperextended the left knee and had immediate posterior and infrapatellar knee pain. He noted some swelling in the left knee following the injury had denied any ecchymosis. He was able to ambulate on his own following this injury. He states the pain has continued since time of injury without radiation however the swelling has resolved. He denies mechanical symptoms of buckling locking or catching however he does report some cracking and popping in the left knee with range of motion. He feels his range of motion is decreased compared to his right lower leg. And his difficulty sleeping and awakens him from sleep. He denies any numbness or tingling in the left lower leg. He is recently started naproxen which gives him some relief Past Medical History: Medications 11/06/20 09 Medication Sig Taking? albuterol (PROVENTIL HFA;VENTOLIN HFA) 90 mcg/actuation inhaler Inhale 2 puffs into the lungs every4 hours as needed. Use with spacer peginterferon ronald-2a (PEGASYS) 180 mcg/mL injection Inject 1 mL subcutaneously every 7 days. Patient not taking: Reported on 11/06/2020 telaprevir 375 mg Tab Take 750 mg by mouth 3 times daily. Patient not taking: Reported on 11/06/2020 ribavirin (REBETOL) 200 mg capsule Take 3 capsules by mouth 2 times daily. Patient not taking: Reported on 11/06/2020 methylphenidate (METADATE ER) 20 mg ER tablet Take 20 mg by mouth 2 times daily. omeprazole (PRILOSEC) 20 mg capsule Take 20 mg by mouth daily. Patient Active Problem List Diagnosis ??? Hepatitis C, chronic Overview Note: Past Surgical History: Procedure Laterality Date ??? BICEPS TENDON REPAIR ??? HAND SURGERY ??? ROTATOR CUFF REPAIR No Known Allergies Family History Problem Relation Age of Onset ??? Cancer Sister ??? Diabetes Brother ??? Diabetes Brother ??? Diabetes Brother ??? Heart Failure Mother Social History Tobacco Use ??? Smoking status: Current Every Day Smoker Packs/day: 0.50 Years: 5.00 Pack years: 2.50 ??? Smokeless tobacco: Never Used Substance Use Topics ??? Alcohol use: No Comment: last drink in 2005 ??? Drug use: No Review of Systems: Positive Review of systems are noted in the HPI above. OBJECTIVE: Vitals: Pulse 71 SpO2 97% General: 50-year-old male in no acute distress who appears stated age Escorted by 2 corrections officers Left knee: Examination of the left knee reveals no obvious erythema, ecchymosis, warmth. There is no swelling noted. Range of motion of the left knee is 5 of extension to 110 of flexion with discomfort. 1-2+ crepitation with flexion extension. Medial joint line is minimally tender to palpation. Lateral joint line is non-tender to palpation. Knee is stable to valgus and varus stresses. Dimitris's testing is Negative with firm endpoint. Curry's testing with increased discomfort medially and behind the knee.. Negative anterior drawer test. Negative posterior drawer test. Patient is able to initiate straight leg raise, and extensor mechanism is intact. Calf is soft nontender. Sensation distally to light touch intact in the left lower extremity. Posterior tib pulse is palpable on the left. Patient can actively dorsiflex and plantarflex the ankle. RADIOLOGY/DIAGNOSTIC TESTING: Xray left knee 11/06/2020 were interpreted by myself. These images were reviewed with the patient today. X-rays demonstrate no acute fracture. Osseous alignment is maintained. There is degenerative changes noted no significantly in the patellofemoral region with joint space narrowing and osteophyte formation. There is slight patellar tilt ASSESSMENT: 50-year-old male with left knee pain most likely due to patellofemoral osteoarthritis with possibleunderlying medial meniscal tear Left side was verified. Verbal consent given. Timeout was taken. Using alcohol swabs and a Betadineswab the left anterior lateral knee was sterilely prepped. Using a anterior lateral approach the left knee was sterilely injected with 40 mg Kenalog and 4 cc of Sensorcaine. The patient tolerated theinjection well without complications. Patient was instructed to look out for any signs of infectionsuch as increased redness, pain, or swelling or any fevers or chills. If any of these signs developthey were instructed to call the orthopedic office or present to the emergency department. PLAN: Pertinent anatomy and pathology were reviewed with the patient today and treatment options were discussed. These included: NSAIDs, Tylenol, activity modification, intra-articular corticosteroid injection and an MRI. Patient elected to proceed with intra-articular corticosteroid injection in the left knee. An MRI order was placed on the patient's behalf to evaluate for meniscal pathology-this willneed to be coordinated through [facility] department nursing staff. He will need follow-up evaluation following completion of MRI. Patient expresses undertstanding with care plan moving forward. All questions were answered to satisfaction FOLLOW-UP: Follow-up evaluation pending completion of MRI Thank you for allowing me to participate in the care of your patient. If you have any questions or concerns, please do not hesitate to contact me. BECKIE Potter 11/06/2020 This note was written using dictation software. A reasonable attempt was made at correcting any mistakes. documented in this encounter Plan of Treatment Not on file documented as of this encounter Results * XR Knee 3 Views Left (11/06/2020 8:53 AM EDT) Anatomical Region Laterality Modality Knee Left Computed Radiogr aphy Impressions 11/06/2020 10:59 AM EDT There is no fracture. There is no destructive osseous process. There is mild diffuse soft tissue swelling. There is lateral patellofemoral joint space narrowing. Thank you for letting us participate in the care of this patient. ??If you are a health care provider and have any questions regarding this report, please contact the number below. ??For patients who have questions please contact the health home care giver that requested your imaging first. ? Electronically signed by: UNRULY SINHA MD, [facility] ([phone]), at 11/06/2020 10:59 AM Narrative 11/06/2020 10:59 AM EDT EXAMINATION: XR KNEE 3 VIEWS LEFT CLINICAL INDICATION: Left knee pain TECHNIQUE: 3 views RIGHT foot COMPARISON: None. FINDINGS: There is no fracture. There is no destructive osseous process. There is mild diffuse soft tissue swelling. There is lateral patellofemoral joint space narrowing. Procedure Note Unruly Sinha MD - 11/06/2020 EXAMINATION: XR KNEE 3 VIEWS LEFT CLINICAL INDICATION: Left knee pain TECHNIQUE: 3 views RIGHT foot COMPARISON: None. FINDINGS: There is no fracture. There is no destructive osseous process. There ismild diffuse soft tissue swelling. There is lateral patellofemoral jointspace narrowing. IMPRESSION There is no fracture. There is no destructive osseous process. There ismild diffuse soft tissue swelling. There is lateral patellofemoral jointspace narrowing. Thank you for letting us participate in the care of this patient. If youare a health care provider and have any questions regarding this report,please contact the number below. For patients who have questions please contactthe health home care giver that requested your imaging first. Electronically signed by: UNRULY SINHA MD, [facility] ([phone]), at 11/06/2020 10:59 AM Claudio Marques MD IMG DX ORDERABLES documented in this encounter Visit Diagnoses Diagnosis Left knee pain, unspecified chronicity Primary osteoarthritis of left knee Primary localized osteoarthrosis, lower leg Left knee pain, unspecified chronicity documented in this encounter Administered Medications Inactive Administered Medications - up to 3 most recent administrations Medication Order MAR Action Action Date Dose Rate Site BUpivacaine (pf) (Marcaine) (2.5 mg/mL) 0.25% injection 10 mg 10 mg, Intra-articular, ONCE, 1 dose, On Mon11/06/20 at 1315, Routine Given 11/06/2020 1:07 PM EDT 10 mg triamcinolone acetonide (Kenalog) (10 mg/mL) injection 40 mg 40 mg, Intra-articular, ONCE, 1 dose, On Mon11/06/20 at 1315, Routine Given 11/06/2020 1:08 PM EDT 40 mg documented in this encounter Care Teams Advanced Analytics Associate Relationship Specialty Start Date End Date None None PCP - General 09/06/20 04/18/22 documented as of this encounter
--- OUTSIDE RECORDS SUMMARY | 2023-09-30 16:07 | XMS_ITS | Encounter Summary ---
Author Organization Replaced By [facility] Address One [facility] [place] [address] Care Team Providers Care Biodiesel Plant Superintendent Name Role Phone None Primary Care Provider Unavailabl e Encounter Details Date Type Department Care Team (Latest Contact Info) Description 11/06/2020 8:30 AM EDT - 11/06/2020 11:59 PM EDT Hospital Encounter XRay at [address] [phone] Claudio Marques MD [address] [place] [address] ORTHOPAEDIC [place] [address] Left knee pain, unspecified chronicity Discharge Disposition: [...] Date/Time Associated Diagnosis Comments XR KNEE AP LAT AXIAL PATELLA LEFT Routine 11/06/2020 8:53 AM EDT Left knee pain, unspecified chronicity documented in this encounter Results * XR Knee 3 [...] who have questions please contact the health youth care specialist that requested your imaging first. ? Electronically signed by: UNRULY SINHA MD, [facility] ([phone]), at 11/06/2020 10:59 AM Narrative 11/06/2020 10:59 [...] patients who have questions please contactthe health youth care specialist that requested your imaging first. Electronically signed by: UNRULY SINHA MD, [facility] ([phone]), at 11/06/2020 10:59 AM Claudio Marques MD IMG DX ORDERABLES documented in this encounter Visit Diagnoses Diagnosis Left knee pain, unspecified chronicity documented in this encounter Care Teams Biodiesel Plant Superintendent Relationship Specialty Start Date End Date None None PCP - General 09/06/20 04/18/22 documented as of this encounter
--- OUTSIDE RECORDS SUMMARY | 2023-09-30 16:07 | XMS_ITS | Encounter Summary ---
Author Organization [facility] One [facility] [place] [address] Care Team Providers Care Optical Designer Name Role Phone Unknown Primary Care Provider Unavailabl e Encounter Details Date Type Department Care Team (Late st Contact Info) Description 03/21/2012 Abstract [facility] Information Services [address] [place] [phone] Provider, His [place] MD Social History Tobacco [...] Associated Diagnosis Comments CBC (WITH DIFF) Routine 03/21/2012 3:17 PM EST documented in this encounter Results * (ABNORMAL) CBC (with Diff) (03/21/2012 3:17 PM EST) Baso Absolute 0.03(Exte rnal Lab) 0.0 - 0.2 THOUS [facility] RESULT CONVERSION Comment: Sourced from [facility] Conversion Basophil % 0.6(Exter nal Lab) 0.0 - 2.0 percent [facility] RESULT CONVERSION Comment: Sourced from [facility] [place] Conversion Eosinophils Abs 0.17(Exte rnal Lab) 0.0 - 0.8 THOUS [facility] RESULT CONVERSION Comment: Sourced from [facility] [place] Conversion Eos % 3.3(Exter nal Lab) 0.0 - 7.0 percent [facility] RESULT CONVERSION Comment: Sourced from [facility] [place] Conversion Hematocrit 50.8(Exte rnal Lab) 42.0 - 52.0 percent [facility] RESULT CONVERSION Comment: Sourced from [facility] [place] Conversion Hemoglobin 17.2(Exte rnal Lab) 14.0 - 18.0 g/dl [facility] RESULT CONVERSION Comment: Sourced from [facility] Conversion White Blood Cell 5.29(Exte rnal Lab) 4.8 - 10.8 THOUS [facility] RESULT CONVERSION Comment: Sourced from [facility] [place] Conversion Large Unstained Cells ABS Count 0.06(Exte rnal Lab) 0.00 - 0.40 THOUS [facility] RESULT CONVERSION Comment: Sourced from [facility] [place] Conversion Large Unstained Cells % 1.0(Exter nal Lab) 0.0 - 4.0 percent [facility] RESULT CONVERSION Comment: Sourced from [facility] [place] Conversion Lymphocytes Abs 1.24(Exte rnal Lab) 0.90 - 5.20 THOUS [facility] RESULT CONVERSION Comment: Sourced from [place] Conversion Lymph % 23.4(Exte rnal Lab) 19.0 - 48.0 percent [facility] RESULT CONVERSION Comment: Sourced from [facility] [place] Conversion Macrocyte +(Externa l Lab) [facility] RESULT CONVERSION Comment: Sourced from [facility] [place] Conversion Mean Cell Hemoglobin 33.7(EXTE RNAL/ABN) 27 - 31 pg [facility] RESULT CONVERSION Comment: Sourced from [facility] Conversion Mean Cell Hemoglobin Concentration 33.8(Exte rnal Lab) 33 - 37 g/dl [facility] RESULT CONVERSION Comment: Sourced from [place] Conversion Mean Cell Volume 99.8(EXTE RNAL/ABN) 80 - 94 FL [facility] RESULT CONVERSION Comment: Sourced from [facility] [place] Conversion Monocyte Abs 0.20(Exte rnal Lab) 0.16 - 1.00 THOUS [facility] RESULT CONVERSION Comment: Sourced from [facility] Conversion Monocyte % 3.9(Exter nal Lab) 3.4 - 9.0 percent [facility] RESULT CONVERSION Comment: Sourced from [facility] Conversion Mean Platelet Volume 8.9(Exter nal Lab) 7.2 - 11.1 FL [facility] RESULT CONVERSION Comment: Sourced from [facility] [place] Conversion ANC 3.59(Exte rnal Lab) 1.90 - 8.00 THOUS [facility] RESULT CONVERSION Comment: Sourced from [facility] [place] Conversion Neutrophil % 67.9(Exte rnal Lab) 40.0 - 74.0 percent [facility] RESULT CONVERSION Comment: Sourced from [facility] Conversion Platelet 153(Exter nal Lab) 130 - 400 THOUS [facility] RESULT CONVERSION Comment: Sourced from [facility] Conversion Red Blood Cell 5.09(Exte rnal Lab) 4.7 - 6.1 MILLIONS [facility] RESULT CONVERSION Comment: Sourced from [facility] [place] Conversion RDW coefficient of variation 13.3(Exte rnal Lab) 11.5 - 14.5 percent [facility] RESULT CONVERSION Comment: Sourced from [place] Conversion 03/21/2012 3:17 PM EST His [place] Provider HEMATOLOGY ORDERAB LES [facility] RESULT CONVERSION documented in this encounter Visit Diagnoses Not on filedocumented in this encounter Care Teams Optical Designer Relationship Specialty Start Date End Date Unknown None PCP - General 03/02/11 09/05/20 documented as of this encounter
--- OUTSIDE RECORDS SUMMARY | 2023-09-30 16:07 | XMS_ITS | Encounter Summary ---
Author Organization [facility] Address One [facility] [place] [address] Care Team Providers Care Lunchroom Worker Name Role Phone None Primary Care Provider Unavailabl e Reason for Referral * Diagnostic Test (Routine) - Closed Specialty Diagnoses / Procedures Referred By Contac t Referred To Contact Diagnoses Leg edema, right Right leg pain Procedures Vascular Imaging Venous Lower Extremity Unilateral Davey Green PA [address] [place] [address] [facility] [address] [place] [address] Referral ID Status Reason Start Date Expiration Date V isits Requested Visits Authorized [id number] Closed Specialty Service Requested 10/15/2020 04/14/2022 1 1 Reason for Visit * Diagnostic Test (Routine) - Closed Specialty Diagnoses / Procedures Referred By Contac t Referred To Contact Diagnoses Leg edema, right Right leg pain Procedures Vascular Imaging Venous Lower Extremity Unilateral Davey Green PA [address] [place] [address] [facility] [address] [place] [address] Referral ID Status Reason Start Date Expiration Date V isits Requested Visits Authorized [id number] Closed Specialty Service Requested 10/15/2020 04/14/2022 1 1 Encounter Details Date Type Department Care Team (Latest Contact Info) Description 10/19/2020 3:00 PM EDT - 10/19/2020 11:59 PM EDT Hospital Encounter Ultrasound at [facility] [address] [place] [address] Brian Sanchez MD [address] [place] [address] [place] [address] Leg edema, right; Right leg pain Discharge Disposition: Home Social History Tobacco Use [...] Procedure Name Priority Date/Time Associated Diagnosis Comments VASCULAR IMAGING VENOUS LOWER EXTREMITY UNILATERAL Routine 10/19/2020 4:06 PM EDT Leg edema, right Right leg pain VASCULAR STUDY SCAN 10/19/2020 1 2:00 AM EDT documented in this encounter Results * Vascular Imaging Venous Lower Extremity Unilateral (10/19/2020 4:06 PM EDT) Anatomical Region Laterality Modality VASC Impressions 10/19/2020 4:09 PM EDT No evidence of DVT Thank you for letting us participate in the care of this patient. ??If you are a health care provider and have any questions regarding this report, please contact the number below. ??For patients who have questions please contact the health primary care sales representative that requested your imaging first. ? Electronically signed by: BRIAN SANCHEZ MD, [facility] ([phone]), at 10/19/2020 4:09 PM Narrative 10/19/2020 4:09 PM EDT EXAMINATION: VASCULAR IMAGING VENOUS LOWER EXTREMITY UNILATERAL CLINICAL HISTORY: Right leg pain and edema; r/o DVT TECHNIQUE: Right venous duplex COMPARISON: None FINDINGS: Flow in the common femoral, femoral and popliteal veins is spontaneous phasic and augmentable. Calf veins where visualized are clear Procedure Note Brian Sanchez MD - 10/19/2020 EXAMINATION: VASCULAR IMAGING VENOUS LOWER EXTREMITY UNILATERAL CLINICAL HISTORY: Right leg pain and edema; r/o DVT TECHNIQUE: Right venous duplex COMPARISON: None FINDINGS: Flow in the common femoral, femoral and popliteal veins is spontaneousphasic and augmentable. Calf veins where visualized are clear IMPRESSION No evidence of DVT Thank you for letting us participate in the care of this patient. If youare a health care provider and have any questions regarding this report,please contact the number below. For patients who have questions please contactthe health primary care sales representative that requested your imaging first. Electronically signed by: BRIAN SANCHEZ MD, [facility] ([phone]), at 10/19/2020 4:09 PM rBian Sanchez MD IMG AFFIL VASCULAR O RDERABLES * SCAN DOC: VASCULAR STUDY (10/19/2020 12:00 AM EDT) Anatomical Region Laterality Modality VASC Unknown MEDIA MGR SCAN EXT O RDR/RSLT documented in this encounter Visit Diagnoses Diagnosis Leg edema, right Edema Right leg pain Pain in limb documented in this encounter Care Teams Lunchroom Worker Relationship Specialty Start Date End Date None None PCP - General 09/06/20 04/18/22 documented as of this encounter
--- OUTSIDE RECORDS SUMMARY | 2023-09-30 16:07 | XMS_ITS | Encounter Summary ---
Author Organization [facility] Address [address] [place] [address] Care Team Providers Care Defence Force Senior Officer Name Role Phone Callum Samayoa DO Primary Care Provider [phone] Encounter Details Date Type Department Care Team (Late st Contact Info) Description 09/14/2019 Lab Requisition [facility] Pathology & Laboratory Medicine - [address] [address] Outr Resulting Lab, Provider Social History Tobacco [...] Comments ZZCOVID-19 TEST [facility] PCR Today 09/14/2019 11:52 EDT COVID-19 TESTING Routine 09/14/2019 11:5 2 EDT documented in this encounter Results * COVID-19 TEST [facility] PCR (09/14/2019 11:52 EDT) Swab ENTIRE NASOPHARYNX / Unknown 09/14/2019 11:52 EDT 09/14/2019 23:08 EDT Provider Outr Resulting Lab MICROBIOLOGY - GENERAL ORDERABLES [facility] [address] [place] [address] * COVID-19 TESTING (09/14/2019 11:52 EDT) COVID-19 rt-PCR Result Negative Negative 09/15/2019 12:04 EDT [facility] Comment: This test has not [...] clinical observations, patient history, and epidemiological information. Performed on the [employer] Fusion instrument Performing Lab [place] [facility] Lab 09/15/2019 12:04 EDT [facility] Swab 09/14/2019 11:5 2 EDT 09/14/2019 23:08 EDT Provider Outr Resulting Lab MICROBIOLOGY - GENERAL ORDERABLES [facility] [address] [place] [address] documented in this encounter Visit Diagnoses Not on filedocumented in this encounter Care Teams [employer] Senior Officer Relationship Specialty Start Date End Date Callum Samayoa DO [address] [place] [id number] PCP - General 06/22/09 documented as of this encounter
--- OUTSIDE RECORDS SUMMARY | 2023-09-30 16:07 | XMS_ITS | Clinical Summary ---
Author Organization [facility] Address [address] [place] [address] Care Team Providers Care Route Service Manager Name Role Phone Callum Samayoa DO Primary Care Provider +1- [phone] Allergies Active Allergy Reactions Criticality Noted Date Comments Other - See Comments 06/24/2009 No pain meds, narcotics or opiates Medications Medication Sig Dispensed Refills Start Date End Date Status buprenorphine-naloxone (SUBOXONE) 2-0.[address] 4 mg under the tongue daily. Active Active Problems Problem Noted Date Diagnosed Date Psychosis ([facility]) Social History Tobacco Use Types Packs/Day Years Used Date Smoking Tobacco: Never Assessed Sex and Gender Information Value Date Recorded Sex Assigned at Not on file Gender Identity Male 06/08/2022 11:45 EDT Sexual Orientation Not on file Obstetrics History Last Filed Vital Signs Vital Sign Reading Time Taken Comments Blood Pressure 120/70 06/09/2022 0804 EDT Pulse 73 06/09/2022 0804 EDT Temperature 36.6 ??C (97.9 ??F) 06/09/2022 0804 EDT Respiratory Rate 16 06/09/2022 0804 EDT Oxygen Saturation 100% 06/09/2022 0804 EDT Inhaled Oxygen Concentration - - Weight 117 kg (258 lb) 06/24/2009 0833 EDT Height 172.7 cm (5' 8) 06/24/2009 0833 EDT Body Mass Index 39.23 06/24/2009 0833 EDT Plan of Treatment Health Maintenance Due Date Last Done Comments Hepatitis B Vaccine (1 of 3 - 19+ 3-dose series) 08/26 COVID-19 Vaccine ( season) 2022 Hepatitis C Screen Completed 07/10/2021 Procedures Procedure Name Priority Date/Time Associated Diagnosis Comments HCV RNA DETECT QUANT Today 07/10/2021 0:15 EDT from Last 3 Months or Most Recently Relevant to Health Maintenance Results * (ABNORMAL) HCV RNA DETECT QUANT (07/10/2021 0:15 EDT) HCV RNA Qualitative Detected( A) Undetected 07/14/2021 14:00 EDT [facility] HCV RNA Quantitative 15,700(H) Undetected IU/mL 07/14/2021 14:00 EDT [facility] Blood VENOUS BLOOD / Unknown 07/10/2021 0:15 EDT 07/10/2021 21:41 EDT Narrative [facility] - 07/14/2021 14:00 EDT The quantification range of this assay is 15 IU/mL to 100,000,000 IU/mL. Testing was performed using the Ty HCV test ([employer] with the ty Amplifinity0 System. Provider Outr Resulting Lab CHEMISTRY & BLOOD GAS ORDERABLES [facility] [address] [place] [address] from Last 3 Months or Most Recently Relevant to Health Maintenance Care Teams Route Service Manager Relationship Specialty Start Date End Date Callum Samayoa DO [address] [place] [address] [place] [address] PCP - General 06/22/09
--- OUTSIDE RECORDS SUMMARY | 2023-09-30 16:07 | XMS_ITS | Encounter Summary ---
Author Organization [facility] [place] [address] Care Team Providers Care Program Writer Name Role Phone Unknown Primary Care Provider Unavailabl e Encounter Details Date Type Department Care Team (Late st Contact Info) Description 08/22/2012 Abstract [facility] Information Services [address] [place] [id number] Provider, His [place] MD Social History Tobacco [...] Associated Diagnosis Comments CBC (WITH DIFF) Routine 08/22/2012 6:00 AM EDT documented in this encounter Results * (ABNORMAL) CBC (with Diff) (08/22/2012 6:00 AM EDT) Baso Absolute 0.06(Exte rnal Lab) 0.0 - 0.2 THOUS [facility] RESULT CONVERSION Comment: Sourced from [facility] [place] Conversion Basophil % 1.0(Exter nal Lab) 0.0 - 2.0 percent [facility] RESULT CONVERSION Comment: Sourced from [facility] [place] Conversion Eosinophils Abs 0.26(Exte rnal Lab) 0.0 - 0.8 THOUS [facility] RESULT CONVERSION Comment: Sourced from [facility] Conversion Eos % 4.2(Exter nal Lab) 0.0 - 7.0 percent [facility] RESULT CONVERSION Comment: Sourced from [facility] [place] Conversion Hematocrit 46.4(Exte rnal Lab) 42.0 - 52.0 percent [facility] RESULT CONVERSION Comment: Sourced from [facility] [place] Conversion Hemoglobin 16.3(Exte rnal Lab) 14.0 - 18.0 g/dl [facility] RESULT CONVERSION Comment: Sourced from [facility] Conversion White Blood Cell 6.03(Exte rnal Lab) 4.8 - 10.8 THOUS [facility] RESULT CONVERSION Comment: Sourced from [facility] [place] Conversion Large Unstained Cells ABS Count 0.07(Exte rnal Lab) 0.00 - 0.40 THOUS [facility] RESULT CONVERSION Comment: Sourced from [facility] [place] Conversion Large Unstained Cells % 1.2(Exter nal Lab) 0.0 - 4.0 percent [facility] RESULT CONVERSION Comment: Sourced from [facility] Conversion Lymphocytes Abs 2.11(Exte rnal Lab) 0.90 - 5.20 THOUS [facility] RESULT CONVERSION Comment: Sourced from [facility] Conversion Lymph % 34.9(Exte rnal Lab) 19.0 - 48.0 percent [facility] RESULT CONVERSION Comment: Sourced from [facility] [place] Conversion Mean Cell Hemoglobin 32.9(EXTE RNAL/ABN) 27 - 31 pg [facility] RESULT CONVERSION Comment: Sourced from [facility] [place] Conversion Mean Cell Hemoglobin Concentration 35.1(Exte rnal Lab) 33 - 37 g/dl [facility] RESULT CONVERSION Comment: Sourced from [facility] [place] Conversion Mean Cell Volume 93.8(Exte rnal Lab) 80 - 94 FL [facility] RESULT CONVERSION Comment: Sourced from [facility] Conversion Monocyte Abs 0.27(Exte rnal Lab) 0.16 - 1.00 THOUS [facility] RESULT CONVERSION Comment: Sourced from [facility] [place] Conversion Monocyte % 4.5(Exter nal Lab) 3.4 - 9.0 percent [facility] RESULT CONVERSION Comment: Sourced from [facility] [place] Conversion Mean Platelet Volume 7.4(Exter nal Lab) 7.2 - 11.1 FL [facility] RESULT CONVERSION Comment: Sourced from [facility] [place] Conversion ANC 3.27(Exte rnal Lab) 1.90 - 8.00 THOUS [facility] RESULT CONVERSION Comment: Sourced from [facility] Conversion Neutrophil % 54.2(Exte rnal Lab) 40.0 - 74.0 percent [facility] RESULT CONVERSION Comment: Sourced from [facility] [place] Conversion Platelet 151(Exter nal Lab) 130 - 400 THOUS [facility] RESULT CONVERSION Comment: Sourced from [facility] [place] Conversion Red Blood Cell 4.95(Exte rnal Lab) 4.7 - 6.1 MILLIONS [facility] RESULT CONVERSION Comment: Sourced from [facility] Conversion RDW coefficient of variation 12.4(Exte rnal Lab) 11.5 - 14.5 percent [facility] RESULT CONVERSION Comment: Sourced from [facility] [place] Conversion 08/22/2012 6:00 AM EDT His [place] Provider HEMATOLOGY ORDERAB LES [facility] RESULT CONVERSION documented in this encounter Visit Diagnoses Not on filedocumented in this encounter Care Teams Program Writer Relationship Specialty Start Date End Date Unknown None PCP - General 03/02/11 09/05/20 documented as of this encounter
--- OUTSIDE RECORDS SUMMARY | 2023-09-30 16:07 | XMS_ITS | Encounter Summary ---
Author Organization [facility] Address [address] [place] [address] Care Team Providers Care Lens Grinder Name Role Phone Callum Samayoa DO Primary Care Provider +1- [phone] Encounter Details Date Type Department Care Team (Late st Contact Info) Description 09/10/2019 Lab Requisition [facility] Pathology & Laboratory Medicine - [address] [address] Outr Resulting Lab, Provider Social History Tobacco [...] Comments ZZCOVID-19 TEST [facility] PCR Today 09/10/2019 12:00 EDT COVID-19 TESTING Routine 09/10/2019 12:0 0 EDT documented in this encounter Results * COVID-19 TEST [facility] PCR (09/10/2019 12:00 EDT) Swab ENTIRE NASOPHARYNX / Unknown 09/10/2019 12:00 EDT 09/10/2019 15:30 EDT Provider Outr Resulting Lab MICROBIOLOGY - GENERAL ORDERABLES [facility] [address] [place] [address] * COVID-19 TESTING (09/10/2019 12:00 EDT) COVID-19 rt-PCR Result Negative Negative 09/10/2019 21:57 EDT [facility] Comment: This test has not [...] history, and epidemiological information. Performed on the [employer] Fusion instrument Performing Lab [facility] Lab 09/10/2019 21:57 EDT [facility] Swab 09/10/2019 12:0 0 EDT 09/10/2019 15:30 EDT Provider Outr Resulting Lab MICROBIOLOGY - GENERAL ORDERABLES [facility] [address] [place] [address] documented in this encounter Visit Diagnoses Not on filedocumented in this encounter Care Teams Lens Grinder Relationship Specialty Start Date End Date Callum Samayoa DO [address] [place] [id number] PCP - General 06/22/09 documented as of this encounter
--- OUTSIDE RECORDS SUMMARY | 2023-09-30 16:07 | XMS_ITS | Encounter Summary ---
Author Organization [facility] Address [address] [place] [address] Care Team Providers Care Head Of Sales Name Role Phone Callum Samayoa DO Primary Care Provider +1- [phone] Encounter Details Date Type Department Care Team (Late st Contact Info) Description 06/24/2009 7:34 EDT - 06/24/2009 21:17 EDT Hospital Encounter [facility] Cardiovascular Unit [address] [place] [id number] Jad Burt MD [address] [facility] [address] [place] [phone] Discharge Disposition: Home or Self Care Social History Tobacco Use Types Packs/Day Years Used Date Smoking Tobacco: Never Assessed Sex and Gender Information Value Date Recorded Sex Assigned at Not on file Gender Identity Male 06/08/2022 11:45 EDT Sexual Orientation Not on file documented as of this encounter Last Filed Vital Signs Vital Sign Reading Time Taken Comments Blood Pressure 138/95 06/24/2009 1340 EDT Pulse 63 06/24/2009 1340 EDT Temperature 36.4 ??C (97.5 ??F) 06/24/2009 1230 EDT Respiratory Rate 16 06/24/2009 1340 EDT Oxygen Saturation 98% 06/24/2009 1340 EDT Inhaled Oxygen Concentration - - Weight 117 kg (258 lb) 06/24/2009 0833 EDT Height 172.7 cm (5' 8) 06/24/2009 0833 EDT Body Mass Index 39.23 06/24/2009 0833 EDT documented in this encounter Medications at Time of Discharge Medication Sig Dispensed Refills Start Date End Date buprenorphine-naloxone (SUBOXONE) 2-0.[address] 4 mg under the tongue daily. documented as of this encounter Discharge Disposition Disposition Code Departure Means Destination Home or Self Care documented in this encounter Progress Notes * Marcia Mota, RN - 06/24/2009 1355 EDT 1245 Richie Lomax came by to see pt, pt vague on pain and location.vss, No diaphorisis noted. Pt in and out of sleep. IV infusing at 200/hr to aid with hydration. 1330 Pt up oob vss, kpt states pain much better. Dressing clean dry and intact, Discharge instructions gone over with pt and father, both verbalized understanding, copy given.IV dc'd dry sterile dressing applied 1340 pt discharged to home via wheelchair with father in stable condition kjt * Marcia Mota, RN - 06/24/2009 1205 EDT 1145pt arrived to cvu s/pLJ liver biopsy. Pt c/o 6/10 neck pain. B. Jaida paged for pain med. Right neck dressing clean dry and intact with no sign of hematoma. Food and drink given and spring well. IVinfusing at kvo with no sign of infiltration. 1200 Report given to mark pt in stable conditon. Dressing clean dry and intact. kjt * Opal Doe - 06/24/2009 1053 EDT Pt. From CVU With consents in place. Proper pt. Identification made. Labs, allergies, hx. And medications reviewed. Positioned on Angio table and prepped for procedure. Conscious sedation with Versedonly given throughout procedure and VS monitored continually. Rt. IJ accessed. Pt. Dozing, comfortable. Hepatic vein selected and portal pressures measured. Hepatic core samples taken and pt. C/O some pain. Versed titrated accordingly. Procedure ended and pt. To CVR. * Monalisa Cottrell RN - 06/23/2009 1320 EDT PreCAll - left voice mail with nurse station phone number if questions before 5pm today documented in this encounter Procedure Notes * Inpatient, Physician - 06/29/2009 1055 EDTAssociated Order(s): ORDERS - SCANNED * Alex Benavidez MD - 06/24/2009 1140 EDT Radiologist: Pramod Procedure: Right IJ liver biopsy Diagnosis/Reason: Hep C Anesthesia: Mod sedation Approach: Right IJ Medications: Versed and lidocaine local; no fentanyl Contrast: 20 ml isovue 200 Fluoro time: 5 min EBL: 5 ml Specimens: Core specimens to surg path Preliminary Findings: Normal pressure gradient Complications: no Recommendations: See orders. documented in this encounter OR Notes * OR PreOp - Inpatient, Physician - 06/29/2009 1152 EDT * Anesthesia Procedure Notes - Inpatient, Physician - 06/29/2009 1055 EDT documented in this encounter Miscellaneous Notes * Scanned Note-Null - Inpatient, Physician - 06/29/2009 1055 EDT * Scanned Note-Null - Inpatient, Physician - 06/29/2009 1055 EDT * Scanned Note-Null - Inpatient, Physician - 06/29/2009 1055 EDT * Scanned Note-Null - Inpatient, Physician - 06/24/2009 0738 EDT * Scanned Note-Null - Inpatient, Physician - 06/24/2009 0738 EDT documented in this encounter Plan of Treatment Not on file documented as of this encounter Procedures Procedure Name Priority Date/Time Associated Diagnosis Comments ORDERS - SCANNED 06/29/2009 10:5 5 EDT documented in this encounter Results * ORDERS - SCANNED (06/29/2009 10:55 EDT) 06/29/2009 10:5 5 EDT Narrative Procedure Note Inpatient, Physician - 06/29/2009 10:55 EDT Physician Inpatient MD ADMISSION ORDERAB LES documented in this encounter Visit Diagnoses Not on filedocumented in this encounter Administered Medications Inactive Administered Medications - up to 3 most recent administrations Medication Order MAR Action Action Date Dose Rate Site midazolam (VERSED) injection 0.5-10 mg 0.5-10 mg, intravenous, ONCE PRN, 1 dose, Starting on Mon06/24/09 at 1003, Until Mon06/24/09 at 1127, Sedation, Routine, Intraprocedure Given 06/24/2009 11:27 EDT 7 mg sodium chloride 0.9 % (NS) infusion 50 mL/hr, intravenous, CONTINUOUS, Starting on Mon06/24/09 at 0900, Until Mon06/24/09 at 2318, Routine, Preprocedure New Bag 06/24/2009 9:00 EDT 50 mL/hr 50 mL/hr documented in this encounter Historical Medications * This list may reflect changes made after this encounter. Medication Sig Dispensed Refills Start Date End Date buprenorphine-naloxone (SUBOXONE) 2-0.[address] 4 mg under the tongue daily. added in this encounter Active and Recently Administered Medications Times are shown in EDT. Continuous Medication Order 06/22/2009 06/23/2009 06/24/2009 sodium chloride 0.9 % (NS) infusion (CANCELED) 50 mL/hr, intravenous, CONTINUOUS, Starting on Mon06/24/09 at 0900, Until Mon06/24/09 at 2318, Routine, Preprocedure 0900 (New Bag - Prov ider: Keira Mantilla LPN) PRN Medication Order 06/22/2009 06/23/2009 06/24/2009 midazolam (VERSED) injection 0.5-10 mg (COMPLETED) 0.5-10 mg, intravenous, ONCE PRN, 1 dose, Starting on Mon06/24/09 at 1003, Until Mon06/24/09 at 1127, Sedation, Routine, Intraprocedure 1127 (Given - Provid er: Opal Deo - Comment: Given in small doses during IR procedure.) documented in this encounter Orders Medications Ordered That Carlos ht Not Have Been Administered Count Last Ordered Date First Ordered Date fentanyl citrate (PF) 50 mcg /mL injection 25-250 mcg 1 06/24/2009 Diet Count Last Ordered Date First Orde red Date DIET REGULAR 1 06/24/2009 Nursing Count Last Ordered Date First Orde red Date BEDREST 1 06/24/2009 INSERT PERIPHERAL IV 1 06/24/2009 NURSING COMMUNICATION 1 06/24/2009 OXYGEN THERAPY 1 06/24/2009 REMOVE IV 1 06/24/2009 Admission Count Last Ordered Date First Orde red Date ADMIT TO OUTPATIENT 1 06/24/2009 NOTIFY PPS OF DISCHARGE COMPLETE 1 06/25/19 10 Discharge Count Last Ordered Date First Orde red Date DISCHARGE PATIENT 1 06/24/2009 documented in this encounter Care Teams Head Of Sales Relationship Specialty Start Date End Date Callum Samayoa, [address] [place] [address] [place] [id number] PCP - General 06/22/09 documented as of this encounter
--- OUTSIDE RECORDS SUMMARY | 2023-09-30 16:07 | XMS_ITS | Encounter Summary ---
Author Organization [facility] [place] [address] Care Team Providers Care Cut To Length Operator Name Role Phone Unknown Primary Care Provider Unavailabl e Encounter Details Date Type Department Care Team (Late st Contact Info) Description 04/20/[address] [facility] Information Services [address] [place] [id number] Provider, His MD [place] Social History Tobacco Use Types Packs/Day [...] Sign Reading Time Taken Comments Blood Pressure 140/88 04/20/2012 2:00 PM EDT Sourced from [place] Conversion Pulse - - Temperature - - Respiratory Rate - - Oxygen Saturation - - Inhaled Oxygen Concentration - - Weight 104.3 kg (230 lb) 04/20/2012 2:0 0 PM EDT Sourced from [place] Conversion Height 177.8 cm (5' 10) 04/20/2012 2:0 0 PM EDT Sourced from [place] Conversion Body Mass Index 33 04/20/2012 2:00 PM EDT documented in this encounter Plan of Treatment Not on file documented as of this encounter Visit Diagnoses Not on filedocumented in this encounter Care Teams Cut To Length Operator Relationship Specialty Start Date End Date Unknown None PCP - General 03/02/11 09/05/20 documented as of this encounter
--- OUTSIDE RECORDS SUMMARY | 2023-09-30 16:07 | XMS_ITS | Encounter Summary ---
Author Organization Health system Address [address] [place] [address] Care Team Providers Care Online Marketing Manager Name Role Phone Nick Moreno MD Primary Care Provider [phone]- [phone] Encounter Details Date Type Department Care Team (Late st Contact Info) Description 06/18/2009 11:20 EDT - 06/18/2009 23:59 EDT Hospital Encounter [address] [address] Jad Burt MD [address] [place] [address], [address] [place] [id number] Discharge Disposition: Home or Self Care Social History Tobacco Use Types Packs/Day Years Used Date Smoking Tobacco: Never Assessed Sex and Gender Information Value Date Recorded Sex Assigned at Not on file Gender Identity Male 06/08/2022 11:45 EDT Sexual Orientation Not on file documented as of this encounter Discharge Disposition Disposition Code Departure Means Destination Home or Self Detention documented in this encounter Plan of Treatment Not on file documented as of this encounter Procedures Procedure Name Priority Date/Time Associated Diagnosis Comments PTT Routine 06/18/2009 11:53 EDT PROTIME Routine 06/18/2009 11:53 EDT COMPLETE BLOOD COUNT Routine 06/18/2009 11:53 EDT TSH Routine 06/18/2009 11:53 EDT COMPREHENSIVE METABOLIC PANEL (CMP) Routine 06/18/2009 11:53 EDT documented in this encounter Results * (ABNORMAL) HEMAGRAM (06/18/2009 11:53 EDT) WBC 5.05 4.0 - 10.4 K/cmm [facility] RBC 4.30(L) 4.36 - 5.78 M/cmm [facility] Hemoglobin 13.1(L) 13.8 - 17.3 gm/dl [facility] HCT 39.2(L) 39.5 - 50.2 % [facility] MCV 91 81 - 95 fl [facility] MCH 30.5 27.6 - 33.0 pg [facility] MCHC 33.5 32.8 - 36.4 gm/dl [facility] PLT 209 141 - 320 K/cmm [facility] RDW-CV 15.1(H) 11.8 - 14.1 % [facility] Blood specimen (specimen) 06/18/2009 11:53 EDT 06/18/2009 11:54 EDT Jad Burt MD HEMATOLOGY & PF4 ORDERABLES Performing Organization Address City/[facility] Co de Phone Number [facility] [address] [place] [address] * TSH (06/18/2009 11:53 EDT) TSH 3.47 0.35 - 5.00 uIU/ml [facility] Blood specimen (specimen) 06/18/2009 11:53 EDT 06/18/2009 11:54 EDT Jad Burt MD CHEMISTRY & BLOOD GAS ORDERABLES Performing Organization Address [facility] Co de Phone Number [facility] [address] [place] [address] * (ABNORMAL) COMPREHENSIVE METABOLIC PANEL (06/18/2009 11:53 EDT) Potassium 4.4 3.5 - 5.0 mEq/L [facility] Sodium 139 136 - 145 mEq/L [facility] Chloride 103 96 - 110 mEq/L [facility] CO2 27 24 - 32 mEq/L [facility] Total Alkaline Phosphatase 75 38 - 126 U/L [facility] Bilirubin, Total 0.5 0.2 - 1.3 mg/dl [facility] AST 60(H) 15 - 46 U/L [facility] ALT 60 21 - 72 U/L [facility] Albumin 3.9 3.4 - 4.9 g/dl [facility] Total Protein 6.4(L) 6.5 - 8.3 g/dl [facility] Creatinine 0.80 0.7 - 1.5 mg/dl [facility] GFR, Calculated >60 ml/min/1.7 3m2 [facility] BUN 17 10 - 26 mg/dl [facility] Calcium 9.2 8.5 - 10.5 mg/dl [facility] Calculated Calcium 9.7 8.5 - 10.5 mg/dl [facility] Glucose, Serum 94 70 - 100 mg/dl [facility] Fasting? No [facility] Blood specimen (specimen) 06/18/2009 11:53 EDT 06/18/2009 11:54 EDT Jad Burt MD CHEMISTRY & BLOOD GAS ORDERABLES Performing Organization Address City/[facility] Co de Phone Number [facility] [address] [place] [address] * PTT (06/18/2009 11:53 EDT) PTT 33 24 - 35 secs [facility] Comment: Therapeutic Heparin range: ??60-90 seconds NOTE NEW REFERENCE RANGE EFFECTIVE 2009 NOTE: ??New Therapeutic Heparin range effective 05/13/2009 Blood specimen (specimen) 06/18/2009 11:53 EDT 06/18/2009 11:54 EDT Jad Burt MD HEMATOLOGY & PF4 ORDERABLES Performing Organization Address City/[facility] Co de Phone Number [facility] [address] [place] [address] * PROTIME (06/18/2009 11:53 EDT) Pro Time 11.4 9.9 - 13.1 secs [facility] Comment:NOTE NEW REFERENC E RANGE EFFECTIVE 2009 I.N.R. 1.0 0.9 - 1.1 Ratio [facility] Comment: Moderate Intensity Coumadin INR = 2.0-3.0 Adjustments in anticoagulant therapy dose should be based upon the INR and NOT the Pro Time. Blood specimen (specimen) 06/18/2009 11:53 EDT 06/18/2009 11:54 EDT Jad Burt MD HEMATOLOGY & PF4 ORDERABLES Performing Organization Address City/State/[facility] Co de Phone Number [facility] [address] [place] [address] documented in this encounter Visit Diagnoses Not on filedocumented in this encounter Care Teams Online Marketing Manager Relationship Specialty [place] [address] [place] [phone] PCP - General 06/18/09 06/21/09 documented as of this encounter
--- OUTSIDE RECORDS SUMMARY | 2023-09-30 16:07 | XMS_ITS | Referral Summary ---
Author Organization [facility] Address [address] [place] [address] Care Team Providers Care Assistant Manager Of Operations Name Role Phone Callum Samayoa DO Primary Care Provider +1- [phone] Allergies Active Allergy Reactions Criticality Noted Date Comments Other - See Comments 06/24/2009 No pain meds, narcotics or opiates Medications Medication Sig Dispensed Refills Start Date End Date Status buprenorphine-naloxone (SUBOXONE) 2-0.[address] 4 mg under the tongue daily. Active Active Problems Problem Noted Date Diagnosed Date Psychosis ([facility]) Social History Tobacco Use Types Packs/Day Years Used Date Smoking Tobacco: Never Assessed Sex and Gender Information Value Date Recorded Sex Assigned at Not on file Gender Identity Male 06/08/2022 11:45 EDT Sexual Orientation Not on file Last Filed Vital Signs Vital Sign Reading [...] Body Mass Index 39.23 06/24/2009 0833 EDT Functional Status Functional Status Response Date of Assess ment Are you deaf or do you have serious difficulty h earing? No 06/08/2022 Plan of Treatment Not on file Procedures Procedure Name Priority Date/Time Associated Diagnosis Comments HCV RNA DETECT QUANT Today 07/10/2021 0:15 EDT from Last 3 Months or Most Recently Relevant to Health Maintenance Results * (ABNORMAL) HCV RNA DETECT QUANT (07/10/2021 0:15 EDT) HCV RNA Qualitative Detected( A) Undetected 07/14/2021 14:00 EDT [facility] HCV RNA Quantitative 15,700(H) Undetected IU/mL 07/14/2021 14:00 EDT [facility] Blood VENOUS BLOOD / Unknown 07/10/2021 0:15 EDT 07/10/2021 21:41 EDT Narrative [facility] - 07/14/2021 14:00 EDT The quantification range of this assay is 15 IU/mL to 100,000,000 IU/mL. Testing was performed using the Ty HCV test ([employer] with the ty 6800 System. Provider Outr Resulting Lab CHEMISTRY & BLOOD GAS ORDERABLES [facility] [address] [place] [address] from Last 3 Months or Most Recently Relevant to Health Maintenance Care Teams Assistant Manager Of Operations Relationship Specialty Start Date End Date Callum Samayoa DO [address] [place] [address] [place] [address] PCP - General 06/22/09
--- OUTSIDE RECORDS SUMMARY | 2023-09-30 16:07 | XMS_ITS | Encounter Summary ---
Author Organization [facility] Address [address] [place] [address] Care Team Providers Care Stock Preparation Supervisor Name Role Phone Callum Samayoa DO Primary Care Provider +1- [phone] Nick Moreno MD Primary Care Provider +1- [phone] Nick Moreno MD Primary Care Provider +1- [phone] Cesar Sellers MD Primary Care Provider +1 -[phone] Encounter Details Date Type Department Care Team (Late st Contact Info) Description 12/16/2005 Results Only [facility] - Map conversion [address] [place] [address] Shana Melo MD [address] [place] [address] Social History Tobacco Use Types Packs/Day Years Used Date Smoking Tobacco: Never Assessed Sex and Gender Information Value Date Recorded Sex Assigned at Not on file Gender Identity Male 06/08/2022 11:45 EDT Sexual Orientation Not on file documented as of this encounter Plan of Treatment Not on file documented as of this encounter Procedures Procedure Name Priority Date/Time Associated Diagnosis Comments SURGICAL PATHOLOGY Routine 12/16/2005 0:00 EST documented in this encounter Results * SURGICAL PATHOLOGY (12/16/2005 0:00 EST) Pathology Report: SURGICAL PATHOLOGY REPORT Reports generated via electronic interface contain original data; however they are lacking the format of the original report. Caution should be taken when reading/interpretin g unformatted reports. Name: ? NICK MONET ? Accession #: ? [id number] ? : ? 1970 (Age: 35) ??M ? Collect Date: ? 12/16/2005 ? Location: ? [facility] ? Receive Date: ? 12/16/2005 ? Provider: SHANA MELO MD Copy to: ? Final Pathologic Diagnosis: ? Biceps tendon, right, distal segment, repair: - Dense fibrocollagenous and adipose tissue with mild chronic inflammation. Document reviewed and electronically signed by: OLEGARIO JAMES MD Report ??Date: 12/21/2005 08:24 By the signature above, the attending physician certifies that he/she has personally conducted a gross and/or microscopic examination of the described specimens and rendered or confirmed the above diagnosis. Specimen(s) Received: ? Distal segment right biceps tendon Clinical History: ? S/P R distal biceps repair Gross Description: ? Received in formalin labelled Tierney and distal segment right biceps tendon is a 2.6 x 1.6 x 0.6 cm rectangular portion of white-watts, focally hemorrhagic, tendonous tissue with moderate detached adipose tissue. ??The specimen is sectioned into two cross sections, a longitudinal section, and entirely submitted as (A1) and (A2). ??(Herrera Horan)/[facility] End of Report [facility] 12/16/2005 12/16/2005 8:5 0 EST Shana Melo MD PATHOLOGY ORDERABLES [facility] [address] [place] [address] documented in this encounter Visit Diagnoses Not on filedocumented in this encounter Care Teams Stock Preparation Supervisor Relationship Specialty Start Date End Date Yao, Callum F, DO [address] [place] [address] [place] [address] PCP - General 06/22/09 Nick Moreno MD [address] [place] [phone] PCP - General 06/18/09 06/21/09 Nick Moreno MD [address] [place] [phone] PCP - General 09/30/08 06/17/09 Cesar Sellers MD ATTN: [address] [address] PCP - General 06/12/08 09/29/08 documented as of this encounter
--- OUTSIDE RECORDS SUMMARY | 2023-09-30 16:07 | XMS_ITS | Clinical Summary ---
Author Organization [facility] Address One [facility] [place] [address] Care Team Providers Care Offc Spec Name Role Phone Emmanuel Ramirez DNP Primary Care Provider [phone] Allergies No known active allergies Medications Medication Sig Dispensed Refills Start Date End Date Status methylphenidate (METADATE ER) 20 mg ER tablet Take 20 mg by mouth 2 times daily. Active omeprazole (PRILOSEC) 20 mg capsule Take 20 mg by mouth daily. Active peginterferon ronald-2a (PEGASYS) 180 mcg/mL injection Inject 1 mL subcutaneously every 7 days. 4 mL 5 05/24/2011 Active Additional Information Patient not taking.Reported on 11/06/2020 telaprevir 375 mg Tab Take 750 mg by mouth 3 times daily. 180 tablet 2 05/24/2011 Active Additional Information Patient not taking.Reported on 11/06/2020 ribavirin (REBETOL) 200 mg capsule Take 3 capsules by mouth 2 times daily. 180 capsule 5 05/24/2011 Active Additional Information Patient not taking.Reported on 11/06/2020 albuterol (PROVENTIL HFA;VENTOLIN HFA) 90 mcg/actuation inhaler Inhale 2 puffs into the lungs every 4 hours as needed. Use with spacer Active Active Problems Problem Noted Date Diagnosed Date Hepatitis C, chronic 03/07/2011 Family History Medical History Relation Comments Diabetes Brother 4 Diabetes Brother 5 Diabetes Brother 6 Heart Failure Mother Cancer Sister 2 Relation Status Comments Brother 1 Alive Brother 2 Alive Brother 3 Alive Brother 4 Brother 5 Brother 6 Father Alive Mother (Age 54) Sister 1 (Age 45) pancreatic can cer Sister 2 Social History Tobacco Use Types Packs/Day Years Used Date Smoking Tobacco: Every Day Cigarettes 0.5 5 Smokeless Tobacco: Never Alcohol Use Standard Drinks/Week Comments No 0 (1 standard drink = 0.6 oz pur e alcohol) last drink in 2005 Sex and Gender Information Value Date Recorded Sex Assigned at Not on file Gender Identity Not on file Sexual Orientation Not on file Last Filed Vital Signs Vital Sign Reading Time Taken Comments Blood Pressure 140/88 04/20/2012 2:00 PM EDT Sourced from [place] Conversion Pulse 71 11/06/2020 9:06 AM EDT Temperature - - Respiratory Rate 20 03/07/2011 12:3 7 PM EST Oxygen Saturation 97% 11/06/2020 9:0 6 AM EDT Inhaled Oxygen Concentration - - Weight 104.3 kg (230 lb) 04/20/2012 2:0 0 PM EDT Sourced from [place] Height 177.8 cm (5' 10) 04/20/2012 2:0 0 PM EDT Sourced from [facility] Body Mass Index 33 04/20/2012 2:00 PM EDT Plan of Treatment Health Maintenance Due Date Last Done Comments CT Colonography 1971 Colonoscopy 1971 Colorectal Cancer Screening 1971 FIT DNA 1971 FIT 1971 Sigmoidoscopy (10 year) with FIT yearly 1971 Sigmoidoscopy 1971 Pneumococcal Vaccine: At-Risk 5-64yrs (1 of 2 - PCV) 0 08/26/1977 Lipid Screening 08/26/1989 Hepatitis B vaccine (0-59 yrs) (1) 08/26/1990 Tdap adult 08/26/1990 Tetanus vaccine 08/26/1990 Zoster vaccine (1 of 2) 08/26/2021 Covid-19 Vaccine (1 - 2022-24 season) 2022 Influenza (Flu) vaccine (1 o f 1 - Influenza standard series) 10/08/2023 HIV screen Completed 03/07/2011 Procedures Procedure Name Priority Date/Time Associated Diagnosis Comments HIV SCREEN, 4TH GENERATION ([facility]/[facility]) Routine 03/07/2011 2:11 PM EST Hepatitis c, chronic from Last 3 Months or Most Recently Relevant to Health Maintenance Results * HIV (03/07/2011 2:11 PM EST) Pathologist [facility] HIV 1/2 Ab Negative [facility] Blood specimen (specimen) 03/07/2011 2:11 PM EST 03/07/2011 2:25 PM EST Zachary Wilburn MD CHEMISTRY ORDERABLE S [facility]EN[facility] from Last 3 Months or Most Recently Relevant to Health Maintenance Care Teams Offc Spec Relationship Specialty Start Date End Date Emmanuel Ramirez DNP [address] [place], [place] [id number] PCP - General Family Medicine 04/19/22
--- OUTSIDE RECORDS SUMMARY | 2023-09-30 16:07 | XMS_ITS | Encounter Summary ---
Author Organization [facility] Address One [facility] [place] [address] Care Team Providers Care Displayer Name Role Phone Unknown Primary Care Provider Unavailabl e Encounter Details Date Type Department Care Team (Late st Contact Info) Description 04/20/2012 2:00 PM EDT Office Visit [address] [phone] Chaya Mckeon PA [address] [place] [address] [place] [address] Social History Tobacco Use Types Packs/Day Years Used Date Smoking Tobacco: Never Assessed Sex and Gender Information Value Date Recorded Sex Assigned at Not on file Gender Identity Not on file Sexual Orientation Not on file documented as of this encounter Plan of Treatment Not on file documented as of this encounter Visit Diagnoses Not on filedocumented in this encounter Care Teams Displayer Relationship Specialty Start Date End Date Unknown None PCP - General 03/02/11 09/05/20 documented as of this encounter
--- OUTSIDE RECORDS SUMMARY | 2023-09-30 16:07 | XMS_ITS | Encounter Summary ---
Author Organization [facility] Address [address] [place] [address] Care Team Providers Care Hand Sewer Name Role Phone Callum Samayoa DO Primary Care Provider [phone] Encounter Details Date Type Department Care Team (Late st Contact Info) Description 09/16/2010 Orders Only [facility] Gastroenterology - [address] [address] Jad Burt MD [address] [facility] [place] [address] Chronic hepatitis C without mention of hepatic coma (Primary Dx) Social History Tobacco Use Types Packs/Day Years Used Date Smoking Tobacco: Never Assessed Sex and Gender Information Value Date Recorded Sex Assigned at Not on file Gender Identity Male 06/08/2022 11:45 EDT Sexual Orientation Not on file documented as of this encounter Plan of Treatment Not on file documented as of this encounter Visit Diagnoses Diagnosis Chronic hepatitis C without mention of hepatic coma- Primary documented in this encounter Care Teams Hand Sewer Relationship Specialty Start Date End Date Callum Samayoa DO [address] [place] [address] [place] [address] PCP - General 06/22/09 documented as of this encounter
--- OUTSIDE RECORDS SUMMARY | 2023-09-30 16:08 | XMS_ITS | Encounter Summary ---
Author Organization [facility] [place] [address] Care Team Providers Care Chef De Partie Name Role Phone Unknown Primary Care Provider Unavailabl e Reason for Visit * Reason Comments Follow-up Encounter Details Date Type Department Care Team (Late st Contact Info) Description 10/26/2011 10:30 AM EDT Follow-Up [place] [phone] Leonor Paulino APRN [facility] DR GASTROENTEROLOGY DEPT. [place] [id number] Hepatitis c, chronic (Primary Dx) Discharge Disposition: Home Social History Tobacco Use [...] Sign Reading Time Taken Comments Blood Pressure 127/78 10/26/2011 10:50 AM EDT ri ght arm Pulse 75 10/26/2011 10:50 AM EDT Temperature - - Respiratory Rate - - Oxygen Saturation - - Inhaled Oxygen Concentration - - Weight 93.9 kg (207 lb) 10/26/2011 10:50 AM EDT Height 172.7 cm (5' 8) 10/26/2011 10:50 AM EDT Body Mass Index 31.47 10/26/2011 10:50 AM EDT documented in this encounter Patient Instructions * Patient Instructions* Leonor Paulino APRN - 10/26/2011 11:02 AM EDT Reduce ribavirin to 800 mg a day which is 2 pills in the morning and 2 pills in the evening documented in this encounter Progress Notes * Leonor Paulino APRN - 10/26/2011 10:58 AM EDT Subjective: Patient ID: [place] Monet is a 41 y.o. male. HPI CURRENT PROBLEM LIST: 1.) Chronic Hepatitis C Genotype: 1a TT Liver biopsy:(06/24/2009) G1-2 S 3 Prior treatment history: [facility]: Hepatitis A: Hepatitis B: EGD: Colonoscopy: HIV status: PRETREATMENT ASSESSMENTS: Eye exam: not completed EKG:Sinus bradycardia Rightward axis Borderline ECG Drug interactions: none Psych: no history control method: use a condom CURRENT HCV TREATMENT: Start Date: 06/23/11 Initial medications: 180 Pegasys mcg /1200 mg Ribavirin / 750 mg tid telaprevir Dose reductions/ escalations: Completed tx week/ planned duration of tx: IFN dose day: Mondays Significant side effects: rash, insomnia, pruritus baseline week 4 week 5 week 7 week 10 1.26 million <43+ <43- <43- <43- Mr Monet presents to [facility] for follow-up after initiating HCV triple therapy on 06/23/11. He has had a nice response to treatment thus far; his baseline viral load was 1.26 million andat week 4 viral load was <43 but positive. He tells me that he has missed about 4 doses of the Telaprevir (1dose/week). He is having side effects of myalgias, arthralgias, insomnia, fatigue, pruritus, diarrhea (1x daily). He developed a rash about 2 days after starting treatment; but the rash resolved after 2 weeks. He has not been taking any medications for the side effects. The virus became undetected at week 5. He continues to see psychiatrist once weekly. He does note that he is slightly more irritable but believes it is manageable at this point. He has been having flu like symptoms after his interferon. He also is getting short of breath with exertion, but denies chest pain. Review of Systems Respiratory: Positive for shortness of breath. Negative for wheezing. Cardiovascular: Negative for chest pain, palpitations and leg swelling. Gastrointestinal: Negative for nausea, vomiting, abdominal pain, abdominal distention and rectal pain. Diarrhea: 1x daily. Genitourinary: Negative for hematuria. Skin: Negative for color change. Neurological: Negative for tremors, syncope and light-headedness. Hematological: Negative for adenopathy. Does not bruise/bleed easily. Psychiatric/Behavioral: Negative for suicidal ideas and dysphoric mood. Objective: Physical Exam Constitutional: He is oriented to person, place, and time. He appears well- developed and well-nourished. HENT: Head: Normocephalic and atraumatic. Eyes: Pupils are equal, round, and reactive to light. No scleral icterus. Neck: Normal range of motion. No thyromegaly present. Cardiovascular: Normal rate, regular rhythm and normal heart sounds. No murmur heard. Pulmonary/Chest: Effort normal. He has wheezes. He has no rales. Abdominal: Soft. Bowel sounds are normal. He exhibits no mass. No tenderness. Musculoskeletal: He exhibits no edema. Lymphadenopathy: He has no cervical adenopathy. Neurological: He is alert and oriented to person, place, and time. Skin: Skin is warm and dry. No rash noted. Psychiatric: His behavior is normal. Assessment and Plan: Mr. Monet is a 41 year old white male in his 19th week of HCV triple therapy. He has had a niceresponse to treatment with a viral load of <43 but positive at week 4 (baseline viral load 1.26 million). At week 5 his viral load was undetected. He will continue with 24 weeks of treatment. 1. HCV, with a nice response to treatment will continue on his medications for a full 24 weeks, which will take him to sometime around the 25 of November. He will get labs again at the end of treatment, 1,3 and 6 months post treatment. 2. Anemia, will reduce his ribavirin to 800 mg a day for the remainder of his treatment. He is short of breath and has had a recent drop in his hg level to 12.4, however his baseline was 18. I will see him back in seven months. documented in this encounter Plan of Treatment Not on file documented as of this encounter Visit Diagnoses Diagnosis Hepatitis C, chronic- Primary Chronic hepatitis C without mention of hepatic coma documented in this encounter Care Teams Chef De Partie Relationship Specialty Start Date End Date Unknown None PCP - General 03/02/11 09/05/20 documented as of this encounter
--- OUTSIDE RECORDS SUMMARY | 2023-09-30 16:08 | XMS_ITS | Encounter Summary ---
Author Organization [facility] [place] [address] Care Team Providers Care Welt Beater Name Role Phone Unknown Primary Care Provider Unavailabl e Reason for Visit * Reason Onset Date Comments Other 06/24/2011 f/u rash Encounter Details Date Type Department Care Team (Late st Contact Info) Description 06/24/2011 Telephone [place] [phone] Leonor Paulino APRN [facility] DR [place] [address] Other (f/u rash) Social History Tobacco Use Types Packs/Day Years Used Date Smoking Tobacco: Every Day Cigarettes 0.5 5 Alcohol Use Standard Drinks/Week Comments No 0 (1 standard drink = 0.6 oz pur e alcohol) last drink in 2005 Sex and Gender Information Value Date Recorded Sex Assigned at Not on file Gender Identity Not on file Sexual Orientation Not on file documented as of this encounter Miscellaneous Notes * Telephone Encounter - Annie Lau RN - 06/24/2011 4:12 PM EDT Plan for f/u rash per Monie Paulino ASSISTANT PROFESSOR OF DRAMA: See prior notes of today: Unable to reach pt at work today, he is in and out often. However, reached his father and brother there whom he also lives with. They provided a good description of the rash history the last 24 hours and intend to pass our message on the pt. The patient did leave a message today that the rash was better and would call if worsens. Family will pass him the message: Take benadryl for rash Apply hydrocortisone cream Call gastro transport operations inspector fellow if rash flares again and/or extends over 50% of his body. Continue medications for now Call clinic Monday am for probable appointment to evaluate continuation of treatment medications. documented in this encounter Plan of Treatment Not on file documented as of this encounter Visit Diagnoses Not on filedocumented in this encounter Care Teams Welt Beater Relationship Specialty Start Date End Date Unknown None PCP - General 03/02/11 09/05/20 documented as of this encounter
--- OUTSIDE RECORDS SUMMARY | 2023-09-30 16:08 | XMS_ITS | Encounter Summary ---
Author Organization [facility] [place] [address] Care Team Providers Care Nurses Educator Name Role Phone Unknown Primary Care Provider Unavailabl e Reason for Visit * Reason Comments Hepatitis C Encounter Details Date Type Department Care Team (Late st Contact Info) Description 08/31/2011 3:00 PM EDT [place] [phone] Leonor Paulino APRN [facility] DR [place]STRO[place] [address] Hepatitis c, chronic (Primary Dx) Discharge Disposition: [...] Sign Reading Time Taken Comments Blood Pressure 122/80 08/31/2011 3:27 PM EDT Pulse 82 08/31/2011 3:27 PM EDT Temperature - - Respiratory Rate - - Oxygen Saturation - - Inhaled Oxygen Concentration - - Weight 95.7 kg (211 lb) 08/31/2011 3:27 PM EDT Height 172.7 cm (5' 8) 08/31/2011 3:27 PM EDT Body Mass Index 32.08 08/31/2011 3:27 PM EDT documented in this encounter Progress Notes * Leonor Paulino APRN - 08/31/2011 3:22 PM EDT Subjective: Patient ID: [place] Monet is [...] Completed tx week/ planned duration of tx: 11/29 IFN dose day: Mondays Significant side effects: rash, insomnia, pruritus baseline week 4 week 5 week 7 week 10 1.26 million <43+ <43- <43- pending Mr Monet presents to Hepatology Clinic for [...] it is manageable at this point. 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 During the first week of treatment, he fell down an embankment while fishing. He fractured right thumb and left hand. He went to ER and then was referred to [place] specialist. The orthopedic surgeon advised that the frx would heal on their own; he has a follow-up with ortho in next several weeks. He has been getting headaches and some stomach aches after is interferon. Review of Systems Respiratory: Negative for shortness of breath and wheezing. Cardiovascular: Negative for chest pain, palpitations [...] murmur heard. Pulmonary/Chest: Effort normal. He has no rales. Abdominal: Soft. Bowel sounds are normal. He exhibits no mass. No tenderness. Musculoskeletal: He exhibits no edema. Lymphadenopathy: He has no cervical adenopathy. Neurological: He is alert and oriented to person, place, and time. Skin: Skin is warm and dry. Pruritic Psychiatric: His behavior is normal. Irritable Assessment and Plan: Mr. Monet is a 41 year old white male in his 10th week of HCV triple therapy. He has had a niceresponse to treatment with a viral load of <43 but positive at week 4 (baseline viral load 1.26 million). At week 5 his viral load was undetected. He will continue with 24 weeks of treatment. He is due to complete the telaprevir portion of treatment in a few weeks. We discussed how when he completes this portion of the regimen he will be able to take his ribavirin with breakfast and dinner. Hewill be relieved to stop this medication. He will continue being followed by his psychiatrist once weekly. If his mood worsens I have asked that he call the office. All of his questions were answered. He verbalized understanding and agreement to the plan of care. He will get labs again in one month and follow up with me in one month. documented in this encounter Plan of Treatment Not on file documented as of this encounter Visit Diagnoses Diagnosis Hepatitis C, chronic- Primary Chronic hepatitis C without mention of hepatic coma documented in this encounter Care Teams Nurses Educator Relationship Specialty Start Date End Date Unknown None PCP - General 03/02/11 09/05/20 documented as of this encounter
--- OUTSIDE RECORDS SUMMARY | 2023-09-30 16:08 | XMS_ITS | Encounter Summary ---
Author Organization [facility] [place] [address] Care Team Providers Care Lockstitch Machine Operator Name Role Phone Unknown Primary Care Provider Unavailabl e Reason for Visit * Reason Onset Date Comments Other 06/24/2011 rash Encounter Details Date Type Department Care Team (Late st Contact Info) Description 06/24/2011 Telephone Gastroenterology at [facility] [address] [place] [phone] [facility] [address] [place] [address] Other (rash) Social History Tobacco Use Types Packs/Day Years [...] Encounter - Annie Lau RN - 06/24/2011 1:50 PM EDT Pt left message this am that rash appeared chest, arms and legs after beginning hep c meds yesterday. I have been unable to reach him back at work. He did at one point leave a message that it was better and he would call back if it worsened again. I have spoken with his father each time at the same work # and he is trying to coordinate our call as well. I have updated SENIOR GRANT WRITER: Kal. documented in this encounter Plan of Treatment Not on file documented as of this encounter Visit Diagnoses Not on filedocumented in this encounter Care Teams Lockstitch Machine Operator Relationship Specialty Start Date End Date Unknown None PCP - General 03/02/11 09/05/20 documented as of this encounter
--- OUTSIDE RECORDS SUMMARY | 2023-09-30 16:08 | XMS_ITS | Encounter Summary ---
Author Organization [facility] [address] Care Team Providers Care Flight Readiness Technician Name Role Phone Unknown Primary Care Provider Unavailabl e Reason for Visit * Reason Comments Follow-up Encounter Details Date Type Department Care Team (Late st Contact Info) Description 07/25/2011 9:30 AM EDT [place] [phone] Leonor Paulino CLINICAL LAB CLERK [facility] [place] [address] Hepatitis c, chronic (Primary Dx) Discharge Disposition: [...] Sign Reading Time Taken Comments Blood Pressure 124/79 07/25/2011 9:01 AM EDT Pulse 78 07/25/2011 9:01 AM EDT Temperature - - Respiratory Rate - - Oxygen Saturation - - Inhaled Oxygen Concentration - - Weight 94.8 kg (209 lb) 07/25/2011 9:01 AM EDT Height 172.7 cm (5' 8) 07/25/2011 9:01 AM EDT Body Mass Index 31.78 07/25/2011 9:01 AM EDT documented in this encounter Progress Notes * Alanis Sims APRN - 07/25/2011 10:01 AM EDT Subjective: Patient ID: [place] Tete Monet is a 40 y.o. male. HPI CURRENT PROBLEM LIST: 1.) [...] Completed tx week/ planned duration of tx: 06/29 IFN dose day: Mondays Significant side effects: rash, insomnia, pruritus baseline week 4 / week 8 / week 12 / week 24 1.26 million <43+ Mr Monet presents to Hepatology Clinic for [...] taking any medications for the side effects. He continues to see psychiatrist once weekly. [...] to ER and then was referred to orthopedically impaired teacher. The orthopedic surgeon advised that the frx would heal on their own; he has a follow-up with ortho in next several weeks. Review of Systems Constitutional: Positive for fatigue. Respiratory: Negative for shortness of breath and wheezing. Cardiovascular: Negative for chest pain, palpitations and leg swelling. Gastrointestinal: Positive for diarrhea (1x daily) and blood in stool (small amt noted on toilet tissue). Negative for nausea, vomiting, abdominal pain, abdominal distention and rectal pain. Genitourinary: Negative for hematuria. Musculoskeletal: Positive for myalgias and arthralgias. Skin: Positive for rash (resolved). Negative for color change. Neurological: Negative for tremors, syncope and light-headedness. Hematological: Negative for adenopathy. Does not bruise/bleed easily. Psychiatric/Behavioral: Positive for sleep disturbance and agitation. Negative for suicidal ideas and dysphoric mood. [...] murmur heard. Pulmonary/Chest: Effort normal. He has wheezes (intermittent expiratory wheeze left base). He has no rales. Abdominal: Soft. Bowel sounds are normal. He exhibits no mass. No tenderness. Musculoskeletal: He exhibits no edema. Lymphadenopathy: He has no cervical adenopathy. Neurological: He is alert and oriented to person, place, and time. Skin: Skin is warm and dry. Pruritic Psychiatric: His behavior is normal. Irritable Assessment and Plan: Mr. Monet is a 40 year old white male in his 5th week of HCV triple therapy. He has had a nice response to treatment with a viral load of <43 but positive at week 4 (baseline viral load 1.26 million). I had a very long discussion with Mr. Monet with regards to the importance of adhering to treatment regimen and the risks of missing more doses of the Telaprevir. Explained that the viruscan potentially mutate and become resistant to the Protease Inhibitor. I recommended that he set analarm on his cell phone to alert him as to when he needs to take his next dose. He is having side effects which are known adverse effects of treatment. For the insomnia and pruritus he may take Benadryl 25 mg, 1 po q 4-6 hrs and at hs. Additionally for the pruritus and dry skin I have recommended moisturizing with Aveeno or Eucerin at least BID and jah after showering. Avoid scratching. For the myaglias and arthralgias he may take Tylenol 1000 mg BID and alternate with ibuprofen 400 mg q 6 hrs. Increase fluid intake. If rash recurs advised to call the office. He will continue being followed by his psychiatrist once weekly. If his mood worsens I have asked that he call the office. He has a f/u with the orthopedically impaired teacher in next few weeks for thumb and hand fractures. All of his questions were answered. He verbalized understanding and agreement to the plan of care. He will continue with weekly labs and return for follow-up visit in 4 weeks. Case discussed with Sara Sims APRN. documented in this encounter Plan of Treatment Not on file documented as of this encounter Visit Diagnoses Diagnosis Hepatitis C, chronic- Primary Chronic hepatitis C without mention of hepatic coma documented in this encounter Care Teams Flight Readiness Technician Relationship Specialty Start Date End Date Unknown None PCP - General 03/02/11 09/05/20 documented as of this encounter
--- OUTSIDE RECORDS SUMMARY | 2023-09-30 16:08 | XMS_ITS | Encounter Summary ---
Author Organization [facility] [place] [address] Care Team Providers Care Pipe Finisher Name Role Phone Unknown Primary Care Provider Unavailabl e Reason for Visit * Reason Onset Date Comments Prior Authorization 05/13/2011 Hep C Encounter Details Date Type Department Care Team (Late st Contact Info) Description 05/13/2011 Telephone Gastroenterology at [facility] [place] [address] Chandrika Parnell data operations manager (Hep C) Social History Tobacco Use Types Packs/Day Years [...] encounter Miscellaneous Notes * Telephone Encounter - Chandrika Parnell CMA - 05/24/2011 2:55 PM EDT No PA needed. * Telephone Encounter - Chandrika Parnell CMA - 05/13/2011 10:13 AM EDT Faxed out PA for Hep C treatment, waiting on response. documented in this encounter Plan of Treatment Not on file documented as of this encounter Visit Diagnoses Not on filedocumented in this encounter Care Teams Pipe Finisher Relationship Specialty Start Date End Date Unknown None PCP - General 03/02/11 09/05/20 documented as of this encounter
--- OUTSIDE RECORDS SUMMARY | 2023-09-30 16:08 | XMS_ITS | Encounter Summary ---
Author Organization [facility] [place] [address] Care Team Providers Care Farmworker Fur Name Role Phone Unknown Primary Care Provider Unavailabl e Reason for Visit * Reason Onset Date Comments Medication Refill 05/24/2011 Encounter Details Date Type Department Care Team (Late st Contact Info) Description 05/24/2011 Refill [place] [id number] Leonor Paulino APRN [facility] GASTROENTEROLOG[place] [address] Social History Tobacco Use Types Packs/Day Years [...] on filedocumented in this encounter Care Teams Farmworker Fur Relationship Specialty Start Date End Date Unknown None PCP - General 03/02/11 09/05/20 documented as of this encounter
--- OUTSIDE RECORDS SUMMARY | 2023-09-30 16:08 | XMS_ITS | Encounter Summary ---
Author Organization [facility] [place] [address] Care Team Providers Care Water Fitness Instructor Name Role Phone Unknown Primary Care Provider Unavailabl e Encounter Details Date Type Department Care Team (Late st Contact Info) Description 06/24/2011 Telephone [place] [phone] Leonor Paulino APRN [facility] [place] [address] Social History Tobacco Use Types Packs/Day Years [...] Telephone Encounter - Annie Lau RN - 08/23/2011 10:49 AM EDT error documented in this encounter Plan of Treatment Not on file documented as of this encounter Visit Diagnoses Not on filedocumented in this encounter Care Teams Water Fitness Instructor Relationship Specialty Start Date End Date Unknown None PCP - General 03/02/11 09/05/20 documented as of this encounter
--- OUTSIDE RECORDS SUMMARY | 2023-09-30 16:08 | XMS_ITS | Encounter Summary ---
Author Organization [facility] [place] [address] Care Team Providers Care Printed Circuit Boards Inspector Name Role Phone Unknown Primary Care Provider Unavailabl e Encounter Details Date Type Department Care Team (Late st Contact Info) Description 10/31/2011 Telephone [place] [address] Leonor Paulino APRN [facility] GASTROENTER[place] [address] Social History Tobacco Use Types Packs/Day Years [...] encounter Miscellaneous Notes * Telephone Encounter - Leonor Paulino APRN - 10/31/2011 9:50 AM EDT Spoke with Dr. Moreno from the [place] dept of corrections, [place] is currently incarcerated, heis due for his interferon dose this evening but the [facility]dc system cannot get the injection until tomorrow night, which should be fine. We discussed the duration of his treatment course which should be four more weeks, current dose is ribavirin 400 mg bid and pegasys 180 mcg qweek. documented in this encounter Plan of Treatment Not on file documented as of this encounter Visit Diagnoses Not on filedocumented in this encounter Care Teams Printed Circuit Boards Inspector Relationship Specialty Start Date End Date Unknown None PCP - General 03/02/11 09/05/20 documented as of this encounter
--- OUTSIDE RECORDS SUMMARY | 2023-09-30 16:08 | XMS_ITS | Encounter Summary ---
Author Organization [facility] [place] [address] Care Team Providers Care Apprentice Instrument Technician Name Role Phone Unknown Primary Care Provider Unavailabl e Encounter Details Date Type Department Care Team (Latest Contact Info) Description 03/07/2011 2:25 PM EST - 03/07/2011 11:59 PM EST Hospital Encounter Non-Invasive Cardiology Lab [facility] [place] [address] [place] [address] CLINIC, DR CASTELLANOS Discharge Disposition: Home Social History Tobacco Use [...] Sig Dispensed Refills Start Date End Date methylphenidate (METADATE ER) 20 mg ER tablet Take 20 mg by mouth 2 times daily. omeprazole (PRILOSEC) 20 mg capsule Take 20 mg by mouth daily. OXYcodone (ROXICODONE) 5 mg immediate release tablet Take 10 mg by mouth nightly. 05/11/2011 documented as of this encounter Plan of Treatment Not on file documented as of this encounter Procedures Procedure Name Priority Date/Time Associated Diagnosis Comments [facility] Routine 03/07/2011 1 :58 PM EST documented in this encounter Results * [facility] (03/07/2011 1:58 PM EST) [facility] ? [place] ? Expected Test ? Result ?LO ??Units ??Values --------- IL28B Polymorphism Genotype ??IL28B Polymorphism: ?TT genotype Interpretation: The CC genotype, as compared to either the CT or TT genotypes, has been associated with an approximately 2-3 fold greater rate of sustained viral response in Hepatitis C Virus genotype 1 chronically infected individuals treated with combination pegylated interferon/ribavi rin therapy (1). Similar sustained viral response associations across various racial groups including Americans (95% CI 1.8-2.3), Americans (95% CI 1.9-4.7), and Hispanics (95% CI 1.4-3.2) have been observed (1). The CC genotype has also been associated with a 3 fold increase in rate of spontaneous clearance of HCV (2). IL28B genotype is only one of many factors that can influence response rated to pegylated interferon/ribavi rin therapy in HCV genotype 1 infection and should be interpreted in the context of other clinical factors. Test Performed by: [facility] [address] [place] [address] BENNETT MADERA Blood specimen (specimen) 03/07/2011 1:58 PM EST 03/07/2011 2:36 PM EST Leonor Paulino APRN LAB SEND OUT ORDERAB LES BENNETT MADERA documented in this encounter Visit Diagnoses Not on filedocumented in this encounter Care Teams Apprentice Instrument Technician Relationship Specialty Start Date End Date Unknown None PCP - General 03/02/11 09/05/20 documented as of this encounter
--- OUTSIDE RECORDS SUMMARY | 2023-09-30 16:08 | XMS_ITS | Encounter Summary ---
Author Organization [facility] [place] [address] Care Team Providers Care Race Relations Adviser Name Role Phone Unknown Primary Care Provider Unavailabl e Encounter Details Date Type Department Care Team (Late st Contact Info) Description 11/01/2011 Telephone [place] [phone] Annie Monge RN Social History Tobacco Use Types Packs/Day Years [...] Miscellaneous Notes * Telephone Encounter - Annie Monge RN - 11/01/2011 10:26 AM EDT Fax received from patient's deputy prosecuting attorney's office requesting last office note be faxed to them for patient's hearing this morning. They faxed a notarized release of information signed by the patient, as well as a [facility] release form signed by patient. Last office note was then faxed to the deputy prosecuting attorney's office as requested. [employer] in [place], [place]. phone [phone], fax [phone]. Release forms were sent to Medical Records for scanning. documented in this encounter Plan of Treatment Not on file documented as of this encounter Visit Diagnoses Not on filedocumented in this encounter Care Teams Race Relations Adviser Relationship Specialty Start Date End Date Unknown None PCP - General 03/02/11 09/05/20 documented as of this encounter
--- OUTSIDE RECORDS SUMMARY | 2023-09-30 16:08 | XMS_ITS | Encounter Summary ---
Author Organization [facility] [place] [address] Care Team Providers Care Replanter Name Role Phone Unknown Primary Care Provider Unavailabl e Encounter Details Date Type Department Care Team (Late st Contact Info) Description 05/11/2011 3:30 PM EDT Follow-[place] [address] Leonor Paulino, JENARO [facility] DR [place] [address] Hepatitis c, chronic Discharge Disposition: Home Social History Tobacco Use [...] on file documented as of this encounter Progress Notes * Leonor Paulino APRN - 05/11/2011 1:52 PM EDT Subjective: Patient ID: [place] Monet is a 40 y.o. male. HPI [...] a condom CURRENT HCV TREATMENT: Start Date: Initial medications: 180 Pegasys mcg /1200 mg Ribavirin / 750 mg tid telaprevir Dose reductions/ escalations: Completed tx week/ planned duration of tx:0/24 IFN dose day: Significant side effects: / baseline / week 4 / week 8 / week 12 / week 24 Review of Systems Objective: Physical Exam Assessment and Plan: Today we discussed the typical side effects of peg-interferon and Ribavirin treatment. We discussedthe flu like symptoms including fever, chills and arthralgias. Safe doses of Tylenol were discussed. Other side effects including but not limited to nausea, vomiting, diarrhea and weight loss, hair thinning, rash and visual changes were discussed. The patient agrees to see an Band Saw Operator Cake Cutting if visual changes occur. We also discussed the rare side effect of unmasking an autoimmune disease. We discussed the importance of adequate hydration during treatment, as this helps to limit side effects. We discussed the psychiatric side effects of the medication including difficulty concentrating, irritability, depression and suicidal or homicidal thoughts. The patient is aware of these complications and agrees to notify myself or the nursing staff if she experiences progressive mood changes. We discussed the importance of control due to the teratogenic effects of Ribavirin. The patient was cautioned to keep the medication away from women of child bearing age. We also discussed the decreased effectiveness of oral contraceptives when used with telaprevir, the patient was instructedto use two forms of barrier control while on the telaprevir plus one week after. The additional side effects of severe rash and anal discomfort associated with the Telaprevir were reviewed. Also due to the multiple drug interactions, I advised the patient not to take any new overthe counter or prescription medications while on the Telaprevir unless reviewed by the Hepatitis C team. The need for strict adherence to the medication regimen was reviewed in regards to timing the Telaprevir every 8 hours and the need to take this drug with food that contains fat. We discussed the appropriate disposal of needles and syringes. The patient was shown appropriate sub cutaneous injection technique and the rotation of injection sites. The patient will get lab tests according to our clinic schedule which is weekly until stable. We will check for a viral response at week 4 and lorraine the treatment duration to the viral response. Thepatient will follow up in clinic in 2 weeks after starting treatment. documented in this encounter Plan of Treatment Not on file documented as of this encounter Visit Diagnoses Diagnosis Hepatitis C, chronic Chronic hepatitis C without mention of hepatic coma documented in this encounter Care Teams Replanter Relationship Specialty Start Date End Date Unknown None PCP - General 03/02/11 09/05/20 documented as of this encounter
--- OUTSIDE RECORDS SUMMARY | 2023-09-30 16:08 | XMS_ITS | Encounter Summary ---
Author Organization [facility] [place] [address] Care Team Providers Care Lead Mechanic Name Role Phone Unknown Primary Care Provider Unavailabl e Reason for Visit * Reason Onset Date Comments Results 03/09/2011 Encounter Details Date Type Department Care Team (Late st Contact Info) Description 03/09/2011 Telephone Gastroenterology at [facility] [address] [place] [phone] Leonor Paulino APRN [facility] [place] [address] Results Social History Tobacco Use Types Packs/Day Years [...] encounter Miscellaneous Notes * Telephone Encounter - Marita Rivera RN - 03/21/2011 10:49 AM EST Able to connect with patient today; lab tests briefly reviewed. He will keep follow up in May. * Telephone Encounter - Leonor Paulino APRN - 03/17/2011 9:29 AM EST I called him and left a msg with a man who answered the phone. If he calls back it is fine for you to discuss his labs, his genotype is still pending, liver tests look fine, no other concerns at thistime. He is scheduled to see me in May and we can review in detail at that visit. * Telephone Encounter - Marita Rivera RN - 03/09/2011 11:26 AM EST Patient calls for lab test results, plan. Will d/w provider. documented in this encounter Plan of Treatment Not on file documented as of this encounter Visit Diagnoses Not on filedocumented in this encounter Care Teams Lead Mechanic Relationship Specialty Start Date End Date Unknown None PCP - General 03/02/11 09/05/20 documented as of this encounter
--- OUTSIDE RECORDS SUMMARY | 2023-09-30 16:08 | XMS_ITS | Encounter Summary ---
Author Organization [facility] [place] [address] Care Team Providers Care Manager Warehouse Name Role Phone Unknown Primary Care Provider Unavailabl e Reason for Visit * Reason Comments Hepatitis C Encounter Details Date Type Department Care Team (Late st Contact Info) Description 03/07/2011 1:00 PM EST Office [place] [phone] Leonor Paulino APRN [facility] [address] GASTROENTEROLOGY DEPT. [place] [phone] Hepatitis c, chronic (Primary Dx) Discharge Disposition: [...] Sign Reading Time Taken Comments Blood Pressure 142/88 03/07/2011 12:37 PM EST Pulse 68 03/07/2011 12:37 PM EST Temperature - - Respiratory Rate 20 03/07/2011 12:37 PM EST Oxygen Saturation 98% 03/07/2011 12:37 PM EST Inhaled Oxygen Concentration - - Weight 91.2 kg (201 lb) 03/07/2011 12:37 PM EST Height 172.7 cm (5' 8) 03/07/2011 12:37 PM EST Body Mass Index 30.56 03/07/2011 12:37 PM EST documented in this encounter Progress Notes * Leonor Paulino APRN - 03/07/2011 1:08 PM EST Subjective: Patient ID: Nick Monet is a 40 y.o. male. HPI Mr. Monet is a 40 year old male who was diagnosed with hepatitis c. His risk factors for viral acquisition include a tattoo placed when he was 22, the tattoo was placed by a friend, he turned yellow after this tattoo and had nausea and vomiting. He was diagnosed with the Hepatitis C at that time but he did not have any further health care. He was incarcetated from [phone], he had no tattoo's placed while incarcerated. He has a history of IVDU from [phone], he also used intranasal drugs intermittently from age [age]. He denies blood transfusion, he lived with a friend who had hepatitisC no known shared objects. He was previously followed by [facility] and had a liver biopsy which showed stage IIIdisease it was recommended that he pursue treatment but then he violated his parole and was sent back to shelter. He was released in September of 2010 and he has transferred his care to [facility] as it is closer and more convenient. He was diagnosed in shelter with Hemochromatosis, he had phlebotomies when he was incarcerated. He needed 4-5 months of weekly phlebotomies. He denies any history of heavy alcohol abuse previously. His liver biopsy was performed after he was de-ironed. OUTSIDE Records: 03/05/2009 Wbc 6.1, hg 17.5 plt 233 ast 39, alt 99, tprot 7.4, alb 3.7, ap 98, tbili 0.46 LIver biopsy 06/24/2009 G1-2 S 3 Past Medical History Diagnosis Date ??? Anxiety ??? Headaches, cluster ??? ADD (attention deficit disorder) Past Surgical History Procedure Date ??? Rotator cuff repair ??? Biceps tendon repair ??? Hand surgery History Social History ??? Marital Status: Single Spouse Name: N/A Number of Children: N/A ??? Years of Education: N/A Occupational History ??? Not on file. Social History Main Topics ??? Smoking status: Current Everyday Smoker -- 0.5 packs/day for 5 years ??? Smokeless tobacco: Not on file ??? Alcohol Use: No last drink in 2005 ??? Drug Use: No ??? Sexually Active: Not on file Other Topics Concern ??? Service No ??? Blood Transfusions No Social History Narrative Lives aloneSingleRecently laid off from [employer] Family History Problem Relation Age of Onset ??? Cancer Sister ??? Diabetes Brother ??? Diabetes Brother ??? Diabetes Brother ??? Heart Failure Mother Review of Systems Constitutional: Positive for fever (tactile, does not check, breaks out in sweats), chills and fatigue. HENT: Negative for tinnitus. Eyes: Positive for visual disturbance. Respiratory: Negative for cough and shortness of breath. Cardiovascular: Negative for chest pain, palpitations and leg swelling. Gastrointestinal: Positive for abdominal pain (right upper quadrant) and diarrhea. Negative for nausea, vomiting and blood in stool. Genitourinary: Negative for dysuria, frequency and hematuria. Musculoskeletal: Positive for back pain and arthralgias (shoulders). Skin: Negative for rash. Neurological: Negative for seizures and headaches. Hematological: Does not bruise/bleed easily. Psychiatric/Behavioral: Negative for suicidal ideas. Objective: Physical Exam Constitutional: He appears well-developed and well-nourished. HENT: Head: Normocephalic and atraumatic. Eyes: Pupils are equal, round, and reactive to light. No scleral icterus. Neck: No thyromegaly present. Cardiovascular: Normal rate, regular rhythm and normal heart sounds. No murmur heard. Pulmonary/Chest: Effort normal and breath sounds normal. He has no wheezes. Assessment and Plan: 1. Hepatitis C, genotype 1 he believes, will check labs today to confirm genotype, rna level and liver tests. Will also check iron studies. It is not clear to me if he has HH or if he had secondary iron overload from the hepatitis C. Would like to pursue treatment with triple therapy as he has stage III disease on his liver biopsy. He will get and ekg and eye exam prior to his return appointment in May when we will likely start triple therapy with Peg interferon, Ribavirin and Telaprevir. 2. Right upper quadrant abdominal pain, will check an abdominal ultrasound. 3. He is requesting disability paperwork which I will not complete as he is not disabled from his liver disease. He was redirected back to his pcp. Results for NICK MONET ( ) as of 03/08/2011 09:53 Ref. Range 03/07/2011 14:11 WBC Latest Range: 4.0-10.0 x10(3)/mcL 7.8 RBC Latest Range: 4.63-6.08 x10(6)/mcL 4.50 (L) Hemoglobin Latest Range: 13.7-17.5 gm/dL 15.0 Hematocrit Latest Range: 40.0-51.0 % 42.8 MCV Latest Range: 79.0-92.0 fL 95.1 (H) MCH Latest Range: 25.6-32.2 pg 33.3 (H) MCHC Latest Range: 32.0-36.5 gm/dL 35.0 RDWSD Latest Range: 35.0-46.0 fL 41.6 RDWCV Latest Range: 10.9-14.4 % 12.1 Platelets Latest Range: 145-370 x10(3)/mcL 192 MPV Latest Range: 9.0-12.0 fL 10.3 Neutr Abs (ANC) Latest Range: 1.50-6.30 x10(3)/mcL 4.76 Neutrophils % Latest Range: 34.0-71.0 % 61.0 Immature Gran % Latest Range: 0.00-0.66 % 0.10 Lymphocytes % Latest Range: 19.0-53.0 % 32.1 Monocytes % Latest Range: 4.0-13.0 % 5.1 Eosinophils % Latest Range: 0.0-7.0 % 1.4 Basophils % Latest Range: 0.0-2.0 % 0.3 Pam Gran Abs Latest Range: 0.00-0.05 x10(3)/mcL 0.01 Lymphocytes Abs Latest Range: 1.0-3.6 x10(3)/mcL 2.5 Monocyte Abs Latest Range: 0.2-1.0 x10(3)/mcL 0.4 Eosinophils Abs Latest Range: 0.0-0.5 x10(3)/mcL 0.1 Basophils Abs Latest Range: 0.0-0.2 x10(3)/mcL 0.0 Total Bilirubin Latest Range: 0.2-1.3 mg/dL 0.6 Bili, Direct Latest Range: 0.0-0.3 mg/dL 0.2 Alk Phos Latest Range: 40-120 unit/L 65 AST Latest Range: 0-39 unit/L 28 ALT Latest Range: 0-55 unit/L 34 Ferritin Latest Range: 30-400 ng/mL 184 Iron Latest Range: 45-160 mcg/dL 215 (H) TIBC Latest Range: 250-450 mcg/dL 324 Iron Saturation Latest Range: 20-50 % 66 (H) PT Latest Range: 12.3-14.7 sec 13.5 INR Latest Range: 0.9-1.1 1.0 Sodium Latest Range: 135-145 mmol/L 136 Potassium Latest Range: 3.5-5.0 mmol/L 3.9 Chloride Latest Range: 98-107 mmol/L 101 CO2 Latest Range: 22-31 mmol/L 27 Anion Gap Latest Range: 5-15 mmol/L 8 BUN Latest Range: 10-20 mg/dL 13 Creatinine Latest Range: 0.80-1.50 mg/dL 0.74 (L) Estimated GFR Latest Range: >=60 >60 Glucose Lvl Latest Range: 60-199 mg/dL 97 Calcium Latest Range: 8.5-10.5 mg/dL 9.4 Total Protein Latest Range: 6.4-8.3 gm/dL 7.1 Albumin Latest Range: 3.2-5.2 gm/dL 4.3 TSH Latest Range: 0.27-4.20 mcIU/mL 1.54 HIV 1/2 Ab No range found Negative documented in this encounter Plan of Treatment Not on file documented as of this encounter Procedures Procedure Name Priority Date/Time Associated Diagnosis Comments EKG 12-LEAD Routine 03/07/2011 2:35 PM EST Hepatitis c, chronic MISCELLANEOUS LAB REQUEST Routine 03/07/2011 2:15 PM EST Hepatitis c, chronic HCV GENOTYPE Routine 03/07/2011 2:11 PM EST Hepatitis c, chronic HFE MUT Routine 03/07/2011 2:11 PM EST Hepatitis c, chronic HCV QUANT Routine 03/07/2011 2:11 PM EST Hepatitis c, chronic DNA ANTIBODY (DOUBLE-STRANDED) Routine 03/07/2011 2:11 PM EST DIFFERENTIAL, AUTOMATED Routine 03/07/2011 2:11 PM EST IRON AND TIBC Routine 03/07/2011 2:11 PM EST Hepatitis c, chronic CRYOGLOBULIN Routine 03/07/2011 2:11 PM EST Hepatitis c, chronic HIV SCREEN, 4TH GENERATION ([facility]/CGP/APD/NLH) Routine 03/07/2011 2:11 PM EST Hepatitis c, chronic PROTHROMBIN TIME Routine 03/07/2011 2:11 PM EST Hepatitis c, chronic CBC (WITH DIFF) Routine 03/07/2011 2:11 PM EST Hepatitis c, chronic BEN ANTIBODY SCREEN Routine 03/07/2011 2 :11 PM EST Hepatitis c, chronic TSH Routine 03/07/2011 2:11 PM EST Hepatitis c, chronic FERRITIN Routine 03/07/2011 2:11 PM EST Hepatitis c, chronic COMPREHENSIVE METABOLIC PANEL Routine 03/07/2011 2:11 PM EST Hepatitis c, chronic HEPATITIS C GENOTYPE Routine 03/07/2011 1:58 PM EST Hepatitis c, chronic HEPATITIS C RNA, QUANTITATIVE, PCR Routine 03/07/2011 1:58 PM EST Hepatitis c, chronic HFE MUTATION Routine 03/07/2011 1:58 PM EST Hepatitis c, chronic documented in this encounter Results * EKG 12 Lead (03/07/2011 2:35 PM EST) Ventricular rate 54 BPM MUSE SYSTEM Atrial Rate 54 BPM MUSE SYSTEM P-R Interval 140 ms MUSE SYSTEM QRS Duration 102 ms MUSE SYSTEM Q-T Interval 434 ms MUSE SYSTEM QTC Calculated (Bezet) 411 ms MUSE SYSTEM Calculated P [place] 20 degrees MUSE SYSTEM Calculated R [place] 93 degrees MUSE SYSTEM Calculated T [place] 47 degrees MUSE SYSTEM INTERPRETATION Sinus bradycardia Rightward axis Borderline ECG No previous ECGs available Confirmed by MD Samayoa Douglas ([id number]) on 03/08/2011 2:53:47 PM MUSE SYSTEM 03/07/2011 2:35 PM EST 03/08/2011 2:53 PM EST Zachary Wilburn MD ECG ORDERABLES MUSE SYSTEM * Miscellaneous Lab request (03/07/2011 2:15 PM EST) Label Request received in lab. CERNER MILLENNIUM Specimen of unknown material (specimen) 03/07/2011 2:15 PM EST 03/07/2011 2:25 PM EST Zachary Wilburn MD LAB SEND OUT ORDERA BLES CERNER MILLENNIUM * DNA ANTIBODY (DOUBLE-STRANDED) (03/07/2011 2:11 PM EST) DNA Ab (DS) Neg Neg CERNER MILLENNIUM Blood specimen (specimen) 03/07/2011 2:11 PM EST 03/08/2011 8:16 AM EST Zachary Wilburn MD LAB SEND OUT ORDERA BLES CERNER MILLENNIUM * DIFFERENTIAL, AUTOMATED (03/07/2011 2:11 PM EST) Neutrophil % 61.0 34.0 - 71.0 % CERNER MILLENNIUM Neutrophil Absolute 4.76 1.50 - 6.30 x10(3)/mcL CERNER MILLENNIUM Lymph % 32.1 19.0 - 53.0 % CERNER MILLENNIUM Lymphocytes Abs 2.5 1.0 - 3.6 x10(3)/mcL CERNER MILLENNIUM Monocyte % 5.1 4.0 - 13.0 % CERNER MILLENNIUM Monocyte Abs 0.4 0.2 - 1.0 x10(3)/mcL CERNER MILLENNIUM Eos % 1.4 0.0 - 7.0 % CERNER MILLENNIUM Eosinophils Abs 0.1 0.0 - 0.5 x10(3)/mcL CERNER MILLENNIUM Basophil % 0.3 0.0 - 2.0 % CERNER MILLENNIUM Baso Absolute 0.0 0.0 - 0.2 x10(3)/mcL CERNER MILLENNIUM Immature Gran % 0.10 0.00 - 0.66 % [facility] Comment: Immature granulocytes(IG's)percentage and absolute count will include metamyelocytes, myelocytes, and promyelocytes. Blood smears from CBCs yielding IG's will be scanned manually for concordance. If this scan disagrees with the automated IG or if promyelocytes are noted, a manual differential will be performed. Immature Gran Absolute 0.01 0.00 - 0.05 x10(3)/mcL [facility] Blood specimen (specimen) 03/07/2011 2:11 PM EST 03/07/2011 2:25 PM EST Zachary Wilburn MD HEMATOLOGY ORDERABL ES [facility] * HCV GENOTYPE (03/07/2011 2:11 PM EST) HCV Genotype Indication for study Hepatitis C Infection Result 1a Interpretation The result of this analysis has identified the presence of ??genotype 1a in the submitted specimen. Genotypes 1a and 1b are the most common genotypes in the [place] and are generally associated with a poor response to treatment with interferon and ribavirin. Genotypes 2 and 3 are typically associated with a more favorable response. Analysis A reverse transcriptase-PC R line probe assay (LiPA) was performed on extracted viral RNA for the purpose of identifying the HCV genotype. Method Joox HCV Genotype LiPA. Random primers are used in a reverse transcriptase reaction to create cDNA that is generated from viral RNA. The cDNA is then amplified by PCR using biotinylated primers directed against the 5'-untranslated region of the HCV genome. Amplified products are hybridized to genotype specific probes and detected in a colorimetric reaction. Genotype classifications will be reported as 1a, 1b, 1, 2a/2c, 2b, 2, 3a, 3b, 3c, 3, 4a, 4b, 4c/4d, 4e, 4f, 4h, 5a, or 6a. [facility] Comment: [VERIFIED DATE]03.21.11 Verified By:Genesis Ramon (Electronic Signature) Blood specimen (specimen) 03/07/2011 2:11 PM EST 03/09/2011 7:48 AM EST Zachary Wilburn MD HEMATOLOGY ORDERABL Performing Organization Address [facility] Phone Number [facility] * HCV QUANT (03/07/2011 2:11 PM EST) [facility] HCV Viral Load [id number] IU/mL [facility] HCV Viral Load Result: [id number] Indication for Study: Hepatitis C Infection Analysis: A quantitiative real time reverse transcriptase PCR assay was performed on extracted viral RNA for the purpose of quantification. Sample: plasma (0.5 mL minimun volume) Method: Ollie Gerson TaqMAN 48 HCV Linear Range: 43IU/mL - 69,000,000IU/mL (95% CI) Interpretation: The result of this analysis is within the limits of detection of the assay. Note: This assay is being performed in the [facility] Molecular Pathology Laboratory. Migue Watkins, Ph.D. Director, Molecular Pathology [facility] Comment: [VERIFIED DATE]03.11.11 Verified By:Genesis Ramon (Electronic Signature) Blood specimen (specimen) 03/07/2011 2:11 PM EST 03/09/2011 7:48 AM EST Zachary Wilburn MD HEMATOLOGY ORDERABL Performing Organization Address [facility] Phone Number [facility] * HFE MUT (03/07/2011 2:11 PM EST) [facility] HFE Mutation RESULTS: ??HETEROZYGOUS POSITIVE FOR THE C282Y HFE ??MUTATION; NEGATIVE FOR THE H63D HFE ??MUTATION. Although this patient carries only one copy of the C282Y mutation, this does NOT rule out hereditary hemochromatosis (see COMMENT). COMMENT: In the study by Krystal et al. (A novel MHC class I-like gene in patients with hereditary haemochromatosis. ??Nature Genetics 1996;13: 399-408), 83% of unrelated individuals with hereditary hemochromatosis (HH) were homozygous for the C282Y mutation, ??5% were C282Y/H63D compound heterozygotes, and less than 1% ??were heterozygous for the C282Y mutation only. ??Other studies have confirmed the high incidence of these mutations in individuals with HH. Neither of these HFE ??mutations was detected in the remaining 12% of individuals with hemochromatosis. This test provides information on the genetic basis for iron overload by detecting two missense mutations, C282Y and H63D, that occur commonly in Type I hereditary hemochromatosis (HFe). The gene frequency for C282Y and H63D is about 5 to 10%. Homozygosity, double heterozygosity, or heterozygosity for these mutations account for about 70% to 80% of cases of classical HFe. These mutations cause graded severity of iron accumulation with homozygosity for C282Y being the strongest and heterozygosity for H63D the weakest. Other mutations, non-genetic iron excess and various pathophysiologic conditions interact with genotype to alter clinical disease phenotype. Disease-producing iron overload can occur with any genotype depending on the level and duration of iron exposure, and interacting variables (Sylvia Jovel. Genetic mechanisms and modifying factors in hereditary hemochromatosis. Diamond Rev Gastroenterol Hepatol 2010;7:50-58). Genetic analysis assists diagnosis when expression of a clinical phenotype possibly due to excess iron is incomplete, for predicting future disease risk (e.g., in family members) or for explaining elevated levels of ferritin or % transferrin saturation. Referral is suggested for detailed clinico-pathologic correlation. METHOD: The regions of interest in the HFE gene (C282Y and H63D) are analyzed using [employer] pre-developed assays for SNP detection on an CHLOE Prism 7500 Sequence Detection System. DNA is isolated from peripheral blood and analyzed using primers and probes specific to the wild type and mutant sequences of each gene sequence of interest (C282Y and H63D). This assay was performed using analyte specific reagents which are regulated by the U.S. Food and Drug Administration. This test was developed and its performance characteristics determined by the Molecular Pathology Laboratory at [facility]. This test is used for clinical purposes and should not be considered as investigational or for research purposes. ??It has not been cleared or approved by the U.S. Food and Drug Administration. However, as a [place] licensed laboratory, our facility is approved for such high complexity clinical testing. [facility]ERNER MILLENNIUM Comment: [VERIFIED DATE]03.11.11 Verified By:Karissa RODGERS, Clau Calabrese Pathologist (Electronic Signature) Blood specimen (specimen) 03/07/2011 2:11 PM EST 03/07/2011 3:38 PM EST Zachary Wilburn MD HEMATOLOGY ORDERABL ES Performing Organization Address [facility] de Phone Number CERNER MILLENNIUM * HIV (03/07/2011 2:11 PM EST) HIV 1/2 Ab Negative CERBANNER MILLENNIUM Blood specimen (specimen) 03/07/2011 2:11 PM EST 03/07/2011 2:25 PM EST Zachary Wilburn MD CHEMISTRY ORDERABLE S Performing Organization Address [facility] Phone Number CERB[facility]NER MILLENNIUM * Cryoglobulin (03/07/2011 2:11 PM EST) Cryoglobulin See Note [facility] Comment:Cryoglobulins negati ve at 24 and 72 hours. Blood specimen (specimen) 03/07/2011 2:11 PM EST 03/07/2011 2:16 PM EST Zachary Wilburn MD CHEMISTRY ORDERABLE S Performing Organization Address [facility] de Phone Number CERBANNER MILLENNIUM * (ABNORMAL) Iron and TIBC (03/07/2011 2:11 PM EST) Iron 215(H) 45 - 160 mcg/dL CERNER MILLENNIUM TIBC 324 250 - 450 mcg/dL CERNER MILLENNIUM Iron Saturation 66(H) 20 - 50 % CERN ER MILLENNIUM Blood specimen (specimen) 03/07/2011 2:11 PM EST 03/07/2011 2:25 PM EST Zachary Wilburn MD CHEMISTRY ORDERABLE S Performing Organization Address [facility] de Phone Number CERNER MILLENNIUM * Ferritin (03/07/2011 2:11 PM EST) Ferritin 184 30 - 400 ng/mL [facility] Comment: Pediatric reference ranges not verified at [facility], interpret with caution. Reference ranges for females greater than 50 years of age approach values for men, i.e., 30-400 ng/mL. Blood specimen (specimen) 03/07/2011 2:11 PM EST 03/07/2011 2:25 PM EST Zachary Wilburn MD CHEMISTRY ORDERABLE S Performing Organization Address [facility] de Phone Number [facility] * (ABNORMAL) BEN (03/07/2011 2:11 PM EST) BEN Pos(A) Neg [facility] Comment: 1:80 Titer seen with Speckled pattern. ??Is suggestive of autoantibodies to Sm, WEB APPLICATION TESTER, SCL-70, or SS-B. Blood specimen (specimen) 03/07/2011 2:11 PM EST 03/08/2011 8:16 AM EST Zachary Wilburn MD LAB SEND OUT ORDERA BLES Performing Organization Address [facility] de Phone Number [facility] * TSH (03/07/2011 2:11 PM EST) Thyroid Stimulating Hormone 1.54 0.27 - 4.20 mcIU/mL [facility] Blood specimen (specimen) 03/07/2011 2:11 PM EST 03/07/2011 2:25 PM EST Zachary Wilburn MD CHEMISTRY ORDERABLE S Performing Organization Address [facility] [[email or web address]] Co de Phone Number [facility] * Prothrombin Time (03/07/2011 2:11 PM EST) Prothrombin Time 13.5 12.3 - 14.7 sec [facility] Comment: [facility] Transfusion Committee Guidelines: INR less than 2.0, PTT less than OR equal to 43.5 seconds, or Fibrinogen greater than or equal to 100 mg/dl indicate adequate procoagulant activity for hemostasis in patients without underlying bleeding disorders. International Normalization Ratio 1.0 0.9 - 1.1 CERNER MILLENNIUM Blood specimen (specimen) 03/07/2011 2:11 PM EST 03/07/2011 2:25 PM EST Zachary Wilburn MD HEMATOLOGY ORDERABL ES CERNER MILLENNIUM * (ABNORMAL) Comprehensive metabolic panel (non-fasting) (03/07/2011 2:11 PM EST) Glucose 97 60 - 199 mg/dL CERNER MILLENNIUM Comment:Diabetes: >=200 mg/d L plus symptoms Blood Urea Nitrogen 13 10 - 20 mg/dL CERNER MILLENNIUM Creatinine 0.74(L) 0.80 - 1.50 mg/dL CERNER MILLENNIUM Sodium 136 135 - 145 mmol/L CERNER MILLENNIUM Potassium 3.9 3.5 - 5.0 mmol/L CERNER MILLENNIUM Comment: Please note: ??Patients with WBC >100,000 may have falsely elevated Potassium levels. ??For accurate Potassium quantification in these patients send serum separator tube (gold top) for subsequent determinations. ??Contact the Clinical Chemistry Laboratory if there are any questions. Chloride 101 98 - 107 mmol/L CERNER MILLENNIUM Carbon Dioxide 27 22 - 31 mmol/L CERNER MILLENNIUM Anion Gap 8 5 - 15 mmol/L CERNER MILLENNIUM Calcium 9.4 8.5 - 10.5 mg/dL CERNER MILLENNIUM Protein, Total 7.1 6.4 - 8.3 gm/dL CERNER MILLENNIUM Albumin 4.3 3.2 - 5.2 gm/dL CERNER MILLENNIUM Aspartate Aminotransferase 28 0 - 39 unit/L CERNER MILLENNIUM Alanine Aminotransferase 34 0 - 55 unit/L CERNER MILLENNIUM Alkaline Phosphatase 65 40 - 120 unit/L CERNER MILLENNIUM Bilirubin, Total 0.6 0.2 - 1.3 mg/dL CERNER MILLENNIUM Bilirubin, Direct 0.2 0.0 - 0.3 mg/dL CERNER MILLENNIUM Est Glomerular Filtration Rate >60 >=60 CERNER MILLENNIUM Comment: The National Kidney Disease Education Program (NKDEP) has recommended all laboratories report estimated GFR (eGFR) along with plasma creatinine measurements to assist you with recognition of early kidney disease. Caveats: ??Plasma creatinine should be at steady-state (unchanged within the past week). For patients multiply eGFR by 1.2. The MDRD equation has not been validated for pediatric patients and is only valid for patients with age >= 18 years. At present, NKDEP does NOT recommend using the MDRD equation for drug dosing purposes and pharmacists should continue to use their current dosing methods. In addition, numerical eGFR values greater than 60 ml/min/1.73 square meters should be treated as > 60, and not an exact number due to greater inaccuracies at these higher values. Per NKDEP, they classify normal renal function as any GFR >60ml/min/1.73 square meters; chronic kidney disease when GFR <60, and renal failure when GFR <15. ??This calculation may not be valid for patients with atypical muscle mass (very lean or obese), acute renal failure, and in patients with diabetic kidney disease. References: http://nkdep.nih.gov/resources/NKDEP_Suggestn4Labs_0606_508.pdf http://www.kidney.org/professionals/kls/pdf/faq_gfr.pdf Blood specimen (specimen) 03/07/2011 2:11 PM EST 03/07/2011 2:25 PM EST Zachary Wilburn MD CHEMISTRY ORDERABLE S RICHYARELY DIAIUM * (ABNORMAL) CBC (with Diff) (03/07/2011 2:11 PM EST) White Blood Cell 7.8 4.0 - 10.0 x10(3)/mc L CERNER MILLENNIUM Red Blood Cell 4.50(L) 4.63 - 6.08 x10(6)/mc L CERNER MILLENNIUM Hemoglobin 15.0 13.7 - 17.5 gm/dL CERNER MILLENNIUM Hematocrit 42.8 40.0 - 51.0 % CERNER MILLENNIUM Mean Cell Volume 95.1(H) 79.0 - 92.0 fL CERNER MILLENNIUM Mean Cell Hemoglobin 33.3(H) 25.6 - 32.2 pg CERNER MILLENNIUM Mean Cell Hemoglobin Concentration 35.0 32.0 - 36.5 gm/dL CERNER MILLENNIUM Platelet 192 145 - 370 x10(3)/mc L CERNER MILLENNIUM RDW Standard Deviation 41.6 35.0 - 46.0 fL CERNER MILLENNIUM RDW coefficient of variation 12.1 10.9 - 14.4 % CERNER MILLENNIUM Mean Platelet Volume 10.3 9.0 - 12.0 fL CERNER MILLENNIUM Blood specimen (specimen) 03/07/2011 2:11 PM EST 03/07/2011 2:25 PM EST Zachary Wilburn MD HEMATOLOGY ORDERABL ES BENNETT MADERA documented in this encounter Visit Diagnoses Diagnosis Hepatitis C, chronic- Primary Chronic hepatitis C without mention of hepatic coma documented in this encounter Care Teams Manager Warehouse Relationship Specialty Start Date End Date Unknown None PCP - General 03/02/11 09/05/20 documented as of this encounter
[2023-09-30 17:03] LABS: Abs Immature Grans 0.02 10^3/uL (0.0-0.06); Absolute Basophil Count 0.03 10^3/uL (0.0-0.2); Absolute Eosinophil Count 0.24 10^3/uL (0.0-0.7); Absolute Lymphocyte Count 1.61 10^3/uL (1.2-3.4); Absolute Monocyte Count 0.49 10^3/uL (0.1-0.8); Absolute Neutrophil Count 4.41 10^3/uL (1.2-6.7); Basophils % 0.4 %; Eosinophils % 3.5 %; HCT 36.1 % (40.0-50.0); HGB 12.6 g/dL (13.5-17.5); Immature Grans % 0.3 %; Lymphocytes % 23.7 %; MCH 33.6 pg (27.0-33.0); MCHC 34.9 % (32.0-36.0); MCV 96 fL (80-95); MPV 9.5 fL (8.0-11.0); Monocytes % 7.2 %; Neutrophils % 64.9 %; Platelet Count 201 10^3/uL (130-400); RBC 3.75 10^6/uL (4.36-5.78); RDW 11.3 % (11.8-14.1); RDW-SD 39.8 fL
--- NOTE | 2023-09-30 17:19 | NUR.NOTE ---
Referral given to Care Managers to assist Pt with social issues and bilateral leg swelling sometime within the week.
--- NOTE | 2023-09-30 17:33 | DI.VRAD_ITS ---
PROCEDURE INFORMATION: Exam: XR Right Tibia and Fibula Exam date and time: 09/30/2023 4:54 PM Age: 53 years old Clinical indication: Other: R bolaños pain after fall TECHNIQUE: Imaging protocol: Radiologic exam of the right tibia and fibula. Views: 2 views. COMPARISON: US LOWER EXTREMITY VENOUS RT 09/27/2023 8:40 AM FINDINGS: Bones/joints: No fracture or dislocation. Knee joint and ankle joint are unremarkable. Soft tissues: Mild pretibial soft tissue swelling. No gas or foreign body. Chronic calcifications within the infrapatellar ligament likely related to previous trauma or inflammation. IMPRESSION: 1. No fracture or dislocation. 2. Mild pretibial soft tissue swelling suggesting contusion. No gas or foreign body. Dictated and Authenticated by: Carlitos Brice MD. Ordering:CHRISTA Wolff MD
[2023-09-30 17:58] LABS: ALT 56 U/L (16-63); AST 52 U/L (15-37); Albumin 3.4 g/dL (3.4-5.0); Alkaline Phosphatase 60 U/L (46-116); Anion Gap 8.1 mmol/L (3-11); BUN 15 mg/dL (7-18); Bilirubin, Total 0.41 mg/dL (0.2-1.0); CO2 27.9 mmol/L (21.0-32.0); CREATININE 0.8 mg/dL (0.70-1.30); Chloride 103 mmol/L (98-107); Estimated GFR 106.48 (mL/min/1.73m2); Glucose 120 mg/dL (74-106); Potassium 3.7 mmol/L (3.5-5.1); Sodium 139 mmol/L (136-145)
[2023-09-30 17:59] LABS: Creatine Kinase 941 U/L (39-308)
== END 2023-09-30 18:39 | disposition home or self-care (01) ==
PROVIDERS: Emergency Provider Nurse Practitioner Family; PCP Physical Therapist
DX: R22.43 Localized swelling, mass and lump, lower limb, bilateral (principal); S80.811A Abrasion, right lower leg, initial encounter; S90.822A Blister (nonthermal), left foot, initial encounter; F17.210 Nicotine dependence, cigarettes, uncomplicated; W22.09XA Striking against other stationary object, initial encounter; Y93.01 Activity, walking, marching and hiking; Y92.018 Other place in single-family (private) house as the place of occurrence of the external cause
CPT/HCPCS: 36415; 80053; 82550; 99283; 73590; 85025

== ENCOUNTER 2023-10-10 13:14 | Emergency (ER) | payer MEDICAID, SELFPAY ==
[2023-10-10 13:17] VITALS: BP 128/83; PULSE 96; RESP 12; TEMP 36.4; O2SAT 96
--- NOTE | 2023-10-10 13:30 | DI.RAD_ITS ---
Exam(s) XR FOOT LT COMPLETE EXAM: XR FOOT LT COMPLETE CLINICAL HISTORY: blister at base of 3rd toes. TECHNIQUE: 2D digital imaging was performed. COMPARISON: No exams were available for comparison FINDINGS: 3 views There is some soft tissue swelling over the dorsal aspect of the metatarsals. There is no evidence of fracture or diastasis of the Lisfranc joint. There are mild degenerative hope nges in the great toe metatarsophalangeal joint. Articulations otherwise appear unremarkable and the re no erosions. No radiopaque foreign body. No osseous lesions. Tiny inferior calcaneal spur noted . IMPRESSION: As above but no acute osseous findings. DATA REPOSITORY: RADIATION DOSE DELIVERED:
--- NOTE | 2023-10-10 13:30 | DI.US_ITS ---
Exam(s) US LOWER EXTREMITY VENOUS RT EXAM: US LOWER EXTREMITY VENOUS RT CLINICAL HISTORY: R leg swelling, pain TECHNIQUE: Grayscale, color, and doppler imaging of the deep venous system of the right lower extrem ity was performed. COMPARISON: US US LOWER EXTREMITY VENOUS RT from 09/27/2023 FINDINGS: There is no evidence of intraluminal thrombus and there is normal compression and augmentation demons trated within the common femoral vein, femoral vein, and popliteal vein. In the ipsilateral calf the interrogated veins also exhibit normal compression/ augmentation properti es. The ipsilateral saphenofemoral junction is patent. Small lymph nodes are noted in the right inguinal region. IMPRESSION: 1. No evidence of DVT in the right lower extremity. DATA REPOSITORY:
--- NOTE | 2023-10-10 13:30 | DI.RAD_ITS ---
Exam(s) XR HAND RT COMPLETE EXAM: XR HAND RT COMPLETE CLINICAL HISTORY: R hand swelling s/p fall. TECHNIQUE: 2D digital imaging was performed. COMPARISON: No exams were available for comparison FINDINGS: 3 views There is soft tissue swelling of the dorsal aspect of the hand. There is no evidence of acute fracture nor dislocation. No radiopaque foreign bodies evident in the region of soft tissue swelling. At the level of the thumb there are few small calcific densities jus t dorsal to the neck of the proximal phalanx. These do not have the appearance of acute fracture fra gments. Bone density is normal. There are no osseous lesions. IMPRESSION: Prominent soft tissue swelling but no fractures evident. No radiopaque foreign bodies. DATA REPOSITORY: RADIATION DOSE DELIVERED:
--- OUTSIDE RECORDS SUMMARY | 2023-10-10 13:43 | XMS_ITS | Encounter Summary ---
Author Organization [facility] Address [address] [place] [address] Care Team Providers Care Delicatessen Slicer Name Role Phone YaoCallum Primary Care Provider +1- [phone] Reason for Visit * Reason Onset Date Comments Other 06/21/2010 hep c.Waiting to schedule appt. to start treatment. Encounter Details Date Type Department Care Team (Late st Contact Info) Description 06/21/2010 Telephone [facility] Gastroenterology - [address] [address] Jad Burt MD [address] [facility], Level [address] [place] [address] Other (hep c.Waiting to schedule [...] on filedocumented in this encounter Care Teams Delicatessen Slicer Relationship Specialty Start Date End Date Callum Samayoa DO [address] [place] [address] PCP - General 06/22/09 documented as of this encounter
--- OUTSIDE RECORDS SUMMARY | 2023-10-10 13:43 | XMS_ITS | Encounter Summary ---
Author Organization [facility] Address One [facility] [place] [address] Care Team Providers Care Condenser Tube Tender Name Role Phone None Primary Care Provider Unavailabl e Encounter Details Date Type Department Care Team (Latest Contact Info) Description 11/06/2020 8:30 AM EDT - 11/06/2020 11:59 PM EDT Hospital Encounter XRay at [address] [phone] Claudio Marques MD [address] [place] [address] [place] [address] Left knee pain, unspecified chronicity Discharge Disposition: [...] who have questions please contact the health long term care administrator that requested your imaging first. ? Electronically signed by: UNRULY SINHA MD, [facility] ([phone]), at 11/06/2020 10:59 AM Narrative 11/06/2020 10:59 [...] patients who have questions please contactthe health long term care administrator that requested your imaging first. Electronically signed by: UNRULY SINHA MD, [facility] ([phone]), at 11/06/2020 10:59 AM Claudio Marques MD IMG DX ORDERABLES documented in this encounter Visit Diagnoses Diagnosis Left knee pain, unspecified chronicity documented in this encounter Care Teams Condenser Tube Tender Relationship Specialty Start Date End Date None None PCP - General 09/06/20 04/18/22 documented as of this encounter
--- OUTSIDE RECORDS SUMMARY | 2023-10-10 13:43 | XMS_ITS | Encounter Summary ---
Author Organization [facility] Address One [facility] [place] [address] Care Team Providers Care Box Tender Name Role Phone None Primary Care Provider Unavailabl e Reason for Visit * Reason Comments Left Knee Pain Encounter Details Date Type Department Care Team (Late st Contact Info) Description 11/06/2020 9:00 AM EDT Office Visit Orthopaedics at [address] [phone] Aryan Pendleton PA [address] [place] [address] [place] [address] Left knee pain, unspecified chronicity; [...] meniscal pathology-this willneed to be coordinated through [facility] department nursing staff. He will need [...] who have questions please contact the health healthcare administrator that requested your imaging first. ? Electronically signed by: UNRULY SINHA MD, [facility] ([phone]), at 11/06/2020 10:59 AM Narrative 11/06/2020 10:59 [...] patients who have questions please contactthe health healthcare administrator that requested your imaging first. Electronically signed by: UNRULY SINHA MD, [facility] ([phone]), at 11/06/2020 10:59 AM Claudio Marques MD [...] mg documented in this encounter Care Teams Box Tender Relationship Specialty Start Date End Date None None PCP - General 09/06/20 04/18/22 documented as of this encounter
--- OUTSIDE RECORDS SUMMARY | 2023-10-10 13:43 | XMS_ITS | Encounter Summary ---
Author Organization [facility] Address [address] [place] [address] Care Team Providers Care Mine Environmental Engineer Name Role Phone Callum Samayoa DO Primary Care Provider +1- [phone] Encounter Details Date Type Department Care Team [...] on filedocumented in this encounter Care Teams Mine Environmental Engineer Relationship Specialty Start Date End Date Callum Samayoa DO [facility] [place] [address] PCP - General 06/22/09 documented as of this encounter
--- OUTSIDE RECORDS SUMMARY | 2023-10-10 13:43 | XMS_ITS | Encounter Summary ---
Author Organization [facility] Address [address] [place] [address] Care Team Providers Care Admission Nurse Coordinator Name Role Phone Callum Samayoa DO Primary Care Provider +1- [phone] Encounter Details Date Type Department Care Team (Late st Contact Info) Description 09/10/2019 Lab Requisition [facility] Pathology & Laboratory Medicine - [address] [address] Outr Resulting Lab, Provider Social History Tobacco [...] Outr Resulting Lab MICROBIOLOGY - GENERAL ORDERABLES [facility] [address] [place] [address] * COVID-19 TESTING (09/10/2019 12:00 EDT) COVID-19 rt-PCR Result Negative Negative 09/10/2019 21:57 EDT [facility] Comment: This test has [...] history, and epidemiological information. Performed on the [employer] Fusion instrument Performing Lab Hardy [facility] Lab 09/10/2019 21:57 EDT [facility] Swab 09/10/2019 12:0 0 EDT 09/10/2019 15:30 EDT Provider Outr Resulting Lab MICROBIOLOGY - GENERAL ORDERABLES [facility] [address] [place] [address] documented in this encounter Visit Diagnoses Not on filedocumented in this encounter Care Teams Admission Nurse Coordinator Relationship Specialty Start Date End Date Callum Samayoa DO [address] [place] [address] PCP - General 06/22/09 documented as of this encounter
--- OUTSIDE RECORDS SUMMARY | 2023-10-10 13:43 | XMS_ITS | Encounter Summary ---
Author Organization [facility] [place] [address] Care Team Providers Care Roads And Parking Lots Sweeper Operator Name Role Phone Unknown Primary Care Provider Unavailabl e Encounter Details Date Type Department Care Team (Late st Contact Info) Description 11/01/2011 Telephone [place] [address] Annie Monge RN Social History [...] 10:26 AM EDT Fax received from patient's attorney lawyer's office requesting last office note be faxed to them for patient's hearing this morning. They faxed a notarized release of information signed by the patient, as well as a [facility] release form signed by patient. Last office note was then faxed to the attorney lawyer's office as requested. [employer] in [place], [place]. phone [phone], fax [phone]. Release forms were sent to Medical Records for scanning. documented in this encounter Plan of Treatment Not on file documented as of this encounter Visit Diagnoses Not on filedocumented in this encounter Care Teams Roads And Parking Lots Sweeper Operator Relationship Specialty Start Date End Date Unknown None PCP - General 03/02/11 09/05/20 documented as of this encounter
--- OUTSIDE RECORDS SUMMARY | 2023-10-10 13:43 | XMS_ITS | Encounter Summary ---
Author Organization [facility] Address One [facility] [place] [address] Care Team Providers Care Tanning Wheel Filler Name Role Phone None Primary Care Provider Unavailabl e Encounter Details Date Type Department Care Team (Latest Contact Info) Description 10/19/2020 2:45 PM EDT - 10/19/2020 2:59 PM EDT Hospital Encounter XRay at [address] [address] Brian Cooper MD [address] [place] [address] [place] [address] Left knee pain, unspecified chronicity [...] questions please contact the health child care assistant that requested your imaging first. ? Electronically signed by: LEVI BARTON MD, [facility] ([phone]), at 10/20/2020 7:40 AM Narrative 10/20/2020 7:40 [...] have questions please contactthe health child care assistant that requested your imaging first. Electronically signed by: LEVI BARTON MD, [facility]([phone]), at 10/20/2020 7:40 AM Brian Cooper MD IMG DX ORDERABLES documented in this encounter Visit Diagnoses Diagnosis Left knee pain, unspecified chronicity documented in this encounter Care Teams Tanning Wheel Filler Relationship Specialty Start Date End Date None None PCP - General 09/06/20 04/18/22 documented as of this encounter
--- OUTSIDE RECORDS SUMMARY | 2023-10-10 13:43 | XMS_ITS | Encounter Summary ---
Author Organization [facility] Address One [facility] [place] [address] Care Team Providers Care Carton Folder Name Role Phone None Primary Care Provider Unavailabl e Reason for Referral * Diagnostic Test (Routine) - Closed Specialty Diagnoses / Procedures Referred By Contac t Referred To Contact Diagnoses Leg edema, right Right leg pain Procedures Vascular Imaging Venous Lower Extremity Unilateral Davey Green PA [address] [place] [address] [facility] [address] [place] [address] Referral ID Status Reason Start Date Expiration Date V isits Requested Visits Authorized [id number] Closed Specialty Service Requested 10/15/2020 04/14/2022 1 1 Reason for Visit * Diagnostic Test (Routine) - Closed Specialty Diagnoses / Procedures Referred By Contac t Referred To Contact Diagnoses Leg edema, right Right leg pain Procedures Vascular Imaging Venous Lower Extremity Unilateral Davey Green PA [address] [place] [address] [facility] [address] [place] [address] Referral ID Status Reason Start Date Expiration Date V isits Requested Visits Authorized [id number] Closed Specialty Service Requested 10/15/2020 04/14/2022 1 1 Encounter Details Date Type Department Care Team (Latest Contact Info) Description 10/19/2020 3:00 PM EDT - 10/19/2020 11:59 PM EDT Hospital Encounter Ultrasound at [place] [address] [place] [address] Brian Sanchez MD [address] [place] [address] [place] [address] Leg edema, right; Right leg pain Discharge [...] who have questions please contact the health animal care attendant that requested your imaging first. ? Electronically signed by: BRIAN SANCHEZ MD, [facility] ([phone]), at 10/19/2020 4:09 PM Narrative 10/19/2020 4:09 [...] patients who have questions please contactthe health animal care attendant that requested your imaging first. Electronically signed by: BRIAN SANCHEZ MD, [facility] ([phone]), at 10/19/2020 4:09 PM Brian Sanchez MD IMG AFFIL VASCULAR O RDERABLES * SCAN DOC: VASCULAR STUDY (10/19/2020 12:00 AM EDT) Anatomical Region Laterality Modality VASC Unknown MEDIA MGR SCAN EXT O RDR/RSLT documented in this encounter Visit Diagnoses Diagnosis Leg edema, right Edema Right leg pain Pain in limb documented in this encounter Care Teams Carton Folder Relationship Specialty Start Date End Date None None PCP - General 09/06/20 04/18/22 documented as of this encounter
--- OUTSIDE RECORDS SUMMARY | 2023-10-10 13:43 | XMS_ITS | Encounter Summary ---
Author Organization [facility] [place] [place] [address] Care Team Providers Care Chiropractic Assistant Name Role Phone Unknown Primary Care Provider Unavailabl e Encounter Details Date Type Department Care Team (Late st Contact Info) Description 04/20/2012 [place] [phone] Chaya Mckeon PA [address] [place] [address] Social History Tobacco Use Types Packs/Day Years [...] Report EXAMINATION: ??[facility] 4000 - SHOULDER (COMPLETE) ?10865 ??- RIGHT DIAGNOSIS: ?[facility] JOINT PAIN-SHOULDER REASON: [...] External Results Sarwat Bush Final Report EXAMINATION: [facility] 4000 - SHOULDER (COMPLETE) [address] - RIGHT DIAGNOSIS: [facility] JOINT PAIN-SHOULDER REASON: 719.41 IN MENS DRESSING [...] on filedocumented in this encounter Care Teams Chiropractic Assistant Relationship Specialty Start Date End Date Unknown None PCP - General 03/02/11 09/05/20 documented as of this encounter
--- OUTSIDE RECORDS SUMMARY | 2023-10-10 13:43 | XMS_ITS | Encounter Summary ---
Author Organization [facility] Address [address] [place] [address] Care Team Providers Care Facing End Trimmer Name Role Phone Nick Moreno MD Primary Care Provider +1- [phone] Encounter Details Date Type Department Care Team (Late st Contact Info) Description 10/02/2008 10:47 EDT - 10/02/2008 23:59 EDT Hospital Encounter [address] [address] Jad Burt MD [address] [place] [address], [address] [place] [phone] Discharge Disposition: Home or Self Care Social [...] & BLOOD GAS ORDERABLES Performing Organization Address [facility] de Phone Number [facility] [address] [place] [address] * HEPATITIS B CORE ANTIBODY (10/02/2008 11:01 EDT) Hep B Core Ab Negative Reference Range: ??Negative Interpretati on depends on clinical setting. [facility] Blood specimen (specimen) 10/02/2008 11:01 EDT 10/02/2008 11:03 EDT Jad Burt MD CHEMISTRY & BLOOD GAS ORDERABLES Performing Organization Address [facility] de Phone Number [facility] [address] [place] [address] * HEPATITIS A TOTAL ANTIBODY (10/02/2008 11:01 EDT) Hep A Antibody Positive Antibody to Hepatitis A detected. Reference Range: ??Negative [facility] Blood specimen (specimen) 10/02/2008 11:01 EDT 10/02/2008 11:03 EDT Jad Burt MD CHEMISTRY & BLOOD GAS ORDERABLES Performing Organization Address [facility] Co de Phone Number [facility] [address] [place] [address] * HEPATITS B SURFACE ANTIGEN (10/02/2008 11:01 EDT) Hepatitis B Surface Ag Negative Reference Range: ??Negative [facility] Blood specimen (specimen) 10/02/2008 11:01 EDT 10/02/2008 11:03 EDT Jad Burt MD CHEMISTRY & BLOOD GAS ORDERABLES [facility] [address] [place] [address] * HEMOCHROMATOSIS (10/02/2008 11:01 EDT) Hemochromatosis Gene [...] PERFORMED BY: ? [facility] ? [facility] ? [address] ? [facility] ? [place] [address] ? These results need to be interpreted [...] do ? not require FDA approval. ??A [place] statute prevents our laboratory ? from releasing [...] EDT Jad Burt MD PACKAGES & DNA [place] OBE ORDERABLES Performing Organization Address [facility] de Phone Number [facility] [address] [place] [address] * PTT (10/02/2008 11:01 EDT) PTT 34 20 - 35 secs [facility] Comment:Therapeutic Heparin range: 60-100 seconds Blood specimen (specimen) 10/02/2008 11:01 EDT 10/02/2008 11:03 EDT Jad Burt MD HEMATOLOGY & PF4 ORDERABLES Performing Organization Address [facility] de Phone Number [facility] [address] [place] [address] * PROTIME (10/02/2008 11:01 EDT) Pro Time [...] & PF4 ORDERABLES [facility] [address] [place] [address] documented in this encounter Visit Diagnoses Not on filedocumented in this encounter Care Teams Facing End Trimmer Relationship Specialty Start Date End Date Nick Moreno MD [address] [place] [address] PCP - General 09/30/08 06/17/09 documented as of this encounter
--- OUTSIDE RECORDS SUMMARY | 2023-10-10 13:43 | XMS_ITS | Encounter Summary ---
Author Organization [facility] Address [address] [place] [address] Care Team Providers Care Icu Tech Name Role Phone Callum Samayoa DO Primary Care Provider +1- [phone] Nick Moreno MD Primary Care Provider +1- [phone] Nick Moreno MD Primary Care Provider +1- [phone] Cesar Sellers MD Primary Care Provider +1 -[phone] Encounter Details Date Type Department Care Team (Late st Contact Info) Description 12/16/2005 Results Only [facility] - Map conversion [address] [place] [address] Shana Melo MD [address] [place] [address] Social History Tobacco Use Types Packs/Day Years [...] ? NICK MONET ? Accession #: ? [id number] ? : ? 1970 (Age: 35) ??M [...] Gross Description: ? Received in formalin labelled [place] and distal segment right biceps tendon is a 2.6 x 1.6 x 0.6 cm rectangular portion of white-watts, focally hemorrhagic, tendonous tissue with moderate detached adipose tissue. ??The specimen is sectioned into two cross sections, a longitudinal section, and entirely submitted as (A1) and (A2). ??(Herrera Horan)/[facility] End of Report [facility] 12/16/2005 12/16/2005 8:5 0 EST Shana Melo MD PATHOLOGY ORDERABLES [facility] [address] [place] [address] documented in this encounter Visit Diagnoses Not on filedocumented in this encounter Care Teams Icu Tech Relationship Specialty Start Date End Date Yao, Callum F, DO [address] [place] [address] [place] [address] PCP - General 06/22/09 Nick Moreno MD [address] [place] [phone] PCP - General 06/18/09 06/21/09 Nick Moreno MD [address] [place] [phone] PCP - General 09/30/08 06/17/09 Cesar Sellers MD ATTN: [address] [address] PCP - General 06/12/08 09/29/08 documented as of this encounter
--- OUTSIDE RECORDS SUMMARY | 2023-10-10 13:43 | XMS_ITS | Encounter Summary ---
Author Organization [facility] Address One [facility] [place] [address] Care Team Providers Care Lehr Tender Name Role Phone Emmanuel Ramirez DNP Primary Care Provider Encounter Details Date Type Department Care Team (Late st Contact Info) Description 07/07/2022 Ancillary Procedure Radiology Library at [facility] [place] [address] Emmanuel Ramirez DNP [address] [place], [place] [id number] Social History Tobacco Use Types Packs/Day Years [...] Ramirez DNP IMG FILM LIBRARY OR DERABLES [place], [place] documented in this encounter Visit Diagnoses Not on filedocumented in this encounter Care Teams Lehr Tender Relationship Specialty Start Date End Date Emmanuel Ramirez DNP [address] [place] [address] PCP - General Family Medicine 04/19/22 documented as of this encounter
--- OUTSIDE RECORDS SUMMARY | 2023-10-10 13:43 | XMS_ITS | Encounter Summary ---
Author Organization [facility] Address [address] [place] [address] Care Team Providers Care Utility Hand Name Role Phone Callum Samayoa DO Primary Care Provider +1- [phone] Encounter Details Date Type Department Care Team (Late st Contact Info) Description 09/16/2010 Orders Only [facility] Gastroenterology - [address] [address] Jad Burt MD [address] [facility], [address] [place] [address] Chronic hepatitis C without mention [...] Primary documented in this encounter Care Teams Utility Hand Relationship Specialty Start Date End Date Callum Samayoa DO [address] [place] [address] [place] [address] PCP - General 06/22/09 documented as of this encounter
--- OUTSIDE RECORDS SUMMARY | 2023-10-10 13:43 | XMS_ITS | Encounter Summary ---
Author Organization [facility] [place] [address] Care Team Providers Care Community Liaison Officer Name Role Phone Unknown Primary Care Provider Unavailabl e Encounter Details Date Type Department Care Team (Late st Contact Info) Description 06/08/2012 [place] [phone] Chaya Mckeon PA [address] [place] [address] Social History Tobacco Use Types Packs/Day Years [...] ??RAD 8166 - ARTHRO MAJOR JT RIGHT ?[id number] DIAGNOSIS: ?RT SHOULDER INJURT, PAIN REASON: ? [...] RAD 8166 - ARTHRO MAJOR JT RIGHT [id number] DIAGNOSIS: RT SHOULDER INJURT, PAIN REASON: RT [...] on filedocumented in this encounter Care Teams Community Liaison Officer Relationship Specialty Start Date End Date Unknown None PCP - General 03/02/11 09/05/20 documented as of this encounter
--- OUTSIDE RECORDS SUMMARY | 2023-10-10 13:43 | XMS_ITS | Encounter Summary ---
Author Organization [facility] Address [address] [place] [address] Care Team Providers Care Artificial Leather Calender Operator Name Role Phone Callum Samayoa DO Primary Care Provider +1- [phone] Encounter Details Date Type Department Care Team (Late st Contact Info) Description 01/18/2021 Lab Requisition [facility] Pathology & Laboratory Medicine - [address] [address] Outr Resulting Lab, Provider Social History Tobacco [...] Outr Resulting Lab MICROBIOLOGY - GENERAL ORDERABLES [facility] [address] [place] [address] * COVID-19 TESTING (01/18/2021 11:10 EST) COVID-19 rt-PCR Result Negative Negative 01/19/2021 20:03 EST [facility] Comment: This test has [...] was performed using the ty SARS-CoV-2 assay ([employer] on the Ty 6800 System Performing Lab [facility] [address] Lab 01/19/2021 20:03 EST [facility] Swab 01/18/2021 11:1 0 EST 01/18/2021 22:35 EST Provider Outr Resulting Lab MICROBIOLOGY - GENERAL ORDERABLES [facility] [address] [place] [address] documented in this encounter Visit Diagnoses Not on filedocumented in this encounter Care Teams Artificial Leather Calender Operator Relationship Specialty Start Date End Date Callum Samayoa DO [address] [place] [address] [place] [address] PCP - General 06/22/09 documented as of this encounter
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
--- OUTSIDE RECORDS SUMMARY | 2023-10-10 13:43 | XMS_ITS | Encounter Summary ---
Author Organization [facility] [place] [address] Care Team Providers Care Field Attendant Name Role Phone Unknown Primary Care Provider Unavailabl e Encounter Details Date Type Department Care Team (Late st Contact Info) Description 08/22/2012 Abstract [facility] Information Services [address] [place] [phone] Provider, His [place] MD Social History Tobacco [...] LAB RESULT CONVERSION Comment: Sourced from [facility] [place] Conversion Basophil % 1.0(Exter nal Lab) 0.0 - 2.0 percent [facility] LAB RESULT CONVERSION Comment: Sourced from [facility] [place] Conversion Eosinophils Abs 0.26(Exte rnal Lab) 0.0 - 0.8 THOUS [facility] RESULT CONVERSION Comment: Sourced from [place] Conversion Eos % 4.2(Exter nal Lab) 0.0 - 7.0 percent [facility] LAB RESULT CONVERSION Comment: Sourced from [facility] [place] Conversion Hematocrit 46.4(Exte rnal Lab) 42.0 - 52.0 percent [facility] RESULT CONVERSION Comment: Sourced from [place] Conversion Hemoglobin 16.3(Exte rnal Lab) 14.0 - 18.0 g/dl [facility] LAB RESULT CONVERSION Comment: Sourced from [place] Conversion White Blood Cell 6.03(Exte rnal Lab) 4.8 - 10.8 THOUS [facility] RESULT CONVERSION Comment: Sourced from [facility] [place] Conversion Large Unstained Cells ABS Count 0.07(Exte rnal Lab) 0.00 - 0.40 THOUS [facility] RESULT CONVERSION Comment: Sourced from [place] Conversion Large Unstained Cells % 1.2(Exter nal Lab) 0.0 - 4.0 percent [facility] LAB RESULT CONVERSION Comment: Sourced from [place] Conversion Lymphocytes Abs 2.11(Exte rnal Lab) 0.90 - 5.20 THOUS [facility] RESULT CONVERSION Comment: Sourced from [place] Conversion Lymph % 34.9(Exte rnal Lab) 19.0 - 48.0 percent [facility] LAB RESULT CONVERSION Comment: Sourced from [place] Conversion Mean Cell Hemoglobin 32.9(EXTE RNAL/ABN) 27 - 31 pg [facility] LAB RESULT CONVERSION Comment: Sourced from [place] Conversion Mean Cell Hemoglobin Concentration 35.1(Exte rnal Lab) 33 - 37 g/dl [facility] RESULT CONVERSION Comment: Sourced from [place] Conversion Mean Cell Volume 93.8(Exte rnal Lab) 80 - 94 FL [facility] LAB RESULT CONVERSION Comment: Sourced from [place] Conversion Monocyte Abs 0.27(Exte rnal Lab) 0.16 - 1.00 THOUS [facility] LAB RESULT CONVERSION Comment: Sourced from [place] Conversion Monocyte % 4.5(Exter nal Lab) 3.4 - 9.0 percent [facility] LAB RESULT CONVERSION Comment: Sourced from [facility] [place] Conversion Mean Platelet Volume 7.4(Exter nal Lab) 7.2 - 11.1 FL [facility] LAB RESULT CONVERSION Comment: Sourced from [facility] [place] Conversion Neutrophil Absolute (ANC) - Automated 3.27(Exte rnal Lab) 1.90 - 8.00 THOUS [facility] RESULT CONVERSION Comment: Sourced from [place] Conversion Neutrophil % 54.2(Exte rnal Lab) 40.0 - 74.0 percent [facility] RESULT CONVERSION Comment: Sourced from [place] Conversion Platelet 151(Exter nal Lab) 130 - 400 THOUS [facility] RESULT CONVERSION Comment: Sourced from [facility] [place] Conversion Red Blood Cell 4.95(Exte rnal Lab) 4.7 - 6.1 MILLIONS [facility] LAB RESULT CONVERSION Comment: Sourced from [place] Conversion RDW coefficient of variation 12.4(Exte rnal Lab) 11.5 - 14.5 percent [facility] RESULT CONVERSION Comment: Sourced from [place] Conversion 08/22/2012 6:00 AM EDT His [place] Provider HEMATOLOGY ORDERAB LES [facility] RESULT CONVERSION documented in this encounter Visit Diagnoses Not on filedocumented in this encounter Care Teams Field Attendant Relationship Specialty Start Date End Date Unknown None PCP - General 03/02/11 09/05/20 documented as of this encounter
--- OUTSIDE RECORDS SUMMARY | 2023-10-10 13:43 | XMS_ITS | Encounter Summary ---
Author Organization [facility] Address [address] [place] [address] Care Team Providers Care Marine Equipment Preservation Inspector Name Role Phone Callum Samayoa DO Primary Care Provider +1- [phone] Encounter Details Date Type Department Care Team (Late st Contact Info) Description 07/10/2021 Lab Requisition [facility] Pathology & Laboratory Medicine - [address] [address] Outr Resulting Lab, Provider Social History Tobacco [...] Qualitative Detected( A) Undetected 07/14/2021 14:00 EDT [facility] HCV RNA Quantitative 15,700(H) Undetected IU/mL 07/14/2021 14:00 EDT [facility] Blood VENOUS BLOOD / Unknown 07/10/2021 0:15 EDT 07/10/2021 21:41 EDT Narrative [facility] - 07/14/2021 14:00 EDT The quantification range of this assay is 15 IU/mL to 100,000,000 IU/mL. Testing was performed using the Ty HCV test ([employer] with the ty 6800 System. Provider Outr Resulting Lab CHEMISTRY & BLOOD GAS ORDERABLES Performing Organization Address [facility] de Phone Number [facility] [address] [place] [address] * (ABNORMAL) ACUTE HEPATITIS PROFILE (07/10/2021 0:15 EDT) Hep B Surface Ag Negative Negative 07/12/2021 13:10 EDT [facility] Hep C Antibody Reactive(A) Negative 13:10 EDT [facility] Comment: Supplemental testing for HCV RNA is ordered to rule out active HCV infection. Hepatitis A Antibody, IgM Negative Negative 07/12/2021 13:10 EDT [facility] Comment:The results of this assay can be falsely lowered due to the consumption of Biotin. Hepatitis B Core Ab, Total Negative Negative 07/12/2021 13:10 EDT [facility] Blood VENOUS BLOOD / Unknown 07/10/2021 0:15 EDT 07/10/2021 21:41 EDT Provider Outr Resulting Lab CHEMISTRY & BLOOD GAS ORDERABLES Performing Organization Address [facility] de Phone Number [facility] [address] [place] [address] documented in this encounter Visit Diagnoses Not on filedocumented in this encounter Care Teams Marine Equipment Preservation Inspector Relationship Specialty Start Date End Date Callum Samayoa DO [address] [place] [address] PCP - General 06/22/09 documented as of this encounter
--- OUTSIDE RECORDS SUMMARY | 2023-10-10 13:43 | XMS_ITS | Encounter Summary ---
Author Organization [facility] Address [address] [place], [place] Care Team Providers Care Shuttle Truck Driver Name Role Phone Callum Samayoa DO Primary Care Provider +1- [phone] Encounter Details Date Type Department Care Team (Late st Contact Info) Description 09/14/2019 Lab Requisition [facility] Pathology & Laboratory Medicine - [address] [address] Outr Resulting Lab, Provider Social History Tobacco [...] Outr Resulting Lab MICROBIOLOGY - GENERAL ORDERABLES [facility] [address] [place] [address] * COVID-19 TESTING (09/14/2019 11:52 EDT) COVID-19 rt-PCR Result Negative Negative 09/15/2019 12:04 EDT [facility] Comment: This test [...] history, and epidemiological information. Performed on the Apiary Fusion instrument Performing Lab [place] [facility] Lab 09/15/2019 12:04 EDT [facility] Swab 09/14/2019 11:5 2 EDT 09/14/2019 23:08 EDT Provider Outr Resulting Lab MICROBIOLOGY - GENERAL ORDERABLES [facility] [address] [place] [address] documented in this encounter Visit Diagnoses Not on filedocumented in this encounter Care Teams Shuttle Truck Driver Relationship Specialty Start Date End Date Callum Samayoa DO [address] [place] [address] PCP - General 06/22/09 documented as of this encounter
--- OUTSIDE RECORDS SUMMARY | 2023-10-10 13:43 | XMS_ITS | Encounter Summary ---
Author Organization [facility] One [facility] [place] [address] Care Team Providers Care Hot Braider Name Role Phone Unknown Primary Care Provider Unavailabl e Encounter Details Date Type Department Care Team (Late st Contact Info) Description 04/20/2012 1:30 PM EDT Procedure visit [address] [phone] Radiology, [place] Social History Tobacco Use Types [...] on filedocumented in this encounter Care Teams Hot Braider Relationship Specialty Start Date End Date Unknown None PCP - General 03/02/11 09/05/20 documented as of this encounter
--- OUTSIDE RECORDS SUMMARY | 2023-10-10 13:43 | XMS_ITS | Encounter Summary ---
Author Organization [facility] Address One [facility] [place] [address] Care Team Providers Care Precast Concrete Products Installer Name Role Phone Unknown Primary Care Provider Unavailabl e Encounter Details Date Type Department Care Team (Late st Contact Info) Description 04/20/2012 2:00 PM EDT Office Visit [address] [phone] Chaya Mckeon PA [address] [place] [address] [place] [address] Social History Tobacco Use Types Packs/Day Years Used Date Smoking Tobacco: Never Assessed Sex and Gender Information Value Date Recorded Sex Assigned at Not on file Gender Identity Not on file Sexual Orientation Not on file documented as of this encounter Plan of Treatment Not on file documented as of this encounter Visit Diagnoses Not on filedocumented in this encounter Care Teams Precast Concrete Products Installer Relationship Specialty Start Date End Date Unknown None PCP - General 03/02/11 09/05/20 documented as of this encounter
--- OUTSIDE RECORDS SUMMARY | 2023-10-10 13:43 | XMS_ITS | Encounter Summary ---
Author Organization [facility] Address [address] [place] [address] Care Team Providers Care Rolling Chair Pusher Name Role Phone YaoCallum Primary Care Provider +1- [phone] Encounter Details Date Type Department Care Team (Late st Contact Info) Description 06/24/2009 Results Only *[facility] Gastroenterology - [place] [address] [place] [address] Jad Burt MD [address] [facility] [address] [place] [address] Social History Tobacco Use Types [...] uncomplicated transjugular liver biopsy. Jad Burt MD [facility] IR ORDERABLES * SURGICAL PATHOLOGY (06/24/2009 0:00 EDT) Pathology Report: SURGICAL PATHOLOGY REPORT ? Reports generated via electronic interface contain original data; ? however they are lacking the format of the original report. ? Caution should be taken when reading/interpreti ng unformatted reports. ? Name: ? NICK CHIU ? Accession #: ? [id number] ? : ? 1970 (Age: 38) ??M [...] Gross Description: ? Received in ??formalin labelled [place], Nick and liver bx are six ?? watts-white cylinders of tissue ranging from 0.5 to 1.4 cm in length, each ? measuring 0.1 cm in diameter. ??The specimens are submitted entirely as (A1) and (A2). ??Iron, trichrome and PAS-amylase stains are requested. ??(Herrera Bridges)/lgk ? End of Report ? [facility] 06/24/2009 06/24/2009 14: 15 EDT Alex Benavidez MD PATHOLOGY ORDER [facility] [address] [place] [address] documented in this encounter Visit Diagnoses Not on filedocumented in this encounter Care Teams Rolling Chair Pusher Relationship Specialty Start Date End Date Callum Samayoa, DO [address] [place] [address] PCP - General 06/22/09 documented as of this encounter
--- OUTSIDE RECORDS SUMMARY | 2023-10-10 13:43 | XMS_ITS | Encounter Summary ---
Author Organization [facility] [place] [address] Care Team Providers Care Marketing Executive Name Role Phone Unknown Primary Care Provider Unavailabl e Encounter Details Date Type Department Care Team (Late st Contact Info) Description 03/21/2012 Abstract [facility] [place] Information Services [address] [place] [phone] Provider, His [place] MD Social History Tobacco [...] LAB RESULT CONVERSION Comment: Sourced from [place] Conversion Basophil % 0.6(Exter nal Lab) 0.0 - 2.0 percent [facility] LAB RESULT CONVERSION Comment: Sourced from [place] [place] Conversion Eosinophils Abs 0.17(Exte rnal Lab) 0.0 - 0.8 THOUS [facility] LAB RESULT CONVERSION Comment: Sourced from [place] Conversion Eos % 3.3(Exter nal Lab) 0.0 - 7.0 percent [facility] LAB RESULT CONVERSION Comment: Sourced from [facility] [place] Conversion Hematocrit 50.8(Exte rnal Lab) 42.0 - 52.0 percent [facility] LAB RESULT CONVERSION Comment: Sourced from [place] Conversion Hemoglobin 17.2(Exte rnal Lab) 14.0 - 18.0 g/dl [facility] LAB RESULT CONVERSION Comment: Sourced from [place] Conversion White Blood Cell 5.29(Exte rnal Lab) 4.8 - 10.8 THOUS [facility] LAB RESULT CONVERSION Comment: Sourced from [facility] [place] Conversion Large Unstained Cells ABS Count 0.06(Exte rnal Lab) 0.00 - 0.40 THOUS [facility] LAB RESULT CONVERSION Comment: Sourced from [place] Conversion Large Unstained Cells % 1.0(Exter nal Lab) 0.0 - 4.0 percent [facility] LAB RESULT CONVERSION Comment: Sourced from [place] Conversion Lymphocytes Abs 1.24(Exte rnal Lab) 0.90 - 5.20 THOUS [facility] LAB RESULT CONVERSION Comment: Sourced from [place] Conversion Lymph % 23.4(Exte rnal Lab) 19.0 - 48.0 percent [facility] LAB RESULT CONVERSION Comment: Sourced from [place] Conversion Macrocyte +(Externa l Lab) [facility] LAB RESULT CONVERSION Comment: Sourced from [place] Conversion Mean Cell Hemoglobin 33.7(EXTE RNAL/ABN) 27 - 31 pg [facility] LAB RESULT CONVERSION Comment: Sourced from [facility] [place] Conversion Mean Cell Hemoglobin Concentration 33.8(Exte rnal Lab) 33 - 37 g/dl [facility] LAB RESULT CONVERSION Comment: Sourced from [facility] [place] Conversion Mean Cell Volume 99.8(EXTE RNAL/ABN) 80 - 94 FL [facility] LAB RESULT CONVERSION Comment: Sourced from [place] Conversion Monocyte Abs 0.20(Exte rnal Lab) 0.16 - 1.00 THOUS [facility] LAB RESULT CONVERSION Comment: Sourced from [place] Conversion Monocyte % 3.9(Exter nal Lab) 3.4 - 9.0 percent [facility] LAB RESULT CONVERSION Comment: Sourced from [place] Conversion Mean Platelet Volume 8.9(Exter nal Lab) 7.2 - 11.1 FL [facility] LAB RESULT CONVERSION Comment: Sourced from [place] Conversion Neutrophil Absolute (ANC) - Automated 3.59(Exte rnal Lab) 1.90 - 8.00 THOUS [facility] LAB RESULT CONVERSION Comment: Sourced from [place] Conversion Neutrophil % 67.9(Exte rnal Lab) 40.0 - 74.0 percent [facility] LAB RESULT CONVERSION Comment: Sourced from [place] Conversion Platelet 153(Exter nal Lab) 130 - 400 THOUS [facility] LAB RESULT CONVERSION Comment: Sourced from [place] Conversion Red Blood Cell 5.09(Exte rnal Lab) 4.7 - 6.1 MILLIONS [facility] LAB RESULT CONVERSION Comment: Sourced from [facility] [place] Conversion RDW coefficient of variation 13.3(Exte rnal Lab) 11.5 - 14.5 percent [facility] LAB RESULT CONVERSION Comment: Sourced from [place] Conversion 03/21/2012 3:17 PM EST His [place] Provider HEMATOLOGY ORDERAB LES [facility] LAB RESULT CONVERSION documented in this encounter Visit Diagnoses Not on filedocumented in this encounter Care Teams Marketing Executive Relationship Specialty Start Date End Date Unknown None PCP - General 03/02/11 09/05/20 documented as of this encounter
--- OUTSIDE RECORDS SUMMARY | 2023-10-10 13:43 | XMS_ITS | Encounter Summary ---
Author Organization [facility] Address [facility] [place] [address] Care Team Providers Care Account Executive Name Role Phone None Primary Care Provider Unavailabl e Encounter Details Date Type Department Care Team (Late st Contact Info) Description 10/30/2020 Telephone Orthopaedics at [address] [phone] Keyana Meehan LPN Social History [...] Received a call from nurse Shila at [facility] She is asking for an appointment for [place]. He has Lt knee pain and swelling. NKI. Appointment scheduled with xrays. documented in this encounter Plan of Treatment Not on file documented as of this encounter Visit Diagnoses Not on filedocumented in this encounter Care Teams Account Executive Relationship Specialty Start Date End Date None None PCP - General 09/06/20 04/18/22 documented as of this encounter
--- OUTSIDE RECORDS SUMMARY | 2023-10-10 13:43 | XMS_ITS | Encounter Summary ---
Author Organization [facility] [address] [place] [address] Care Team Providers Care Calender Roll Operator Name Role Phone Unknown Primary Care Provider Unavailabl e Encounter Details Date Type Department Care Team (Late st Contact Info) Description 04/20/2012 Abstract [facility] [place] Information Services [address] [place] [phone] Provider, His MD [place] Social History Tobacco [...] on filedocumented in this encounter Care Teams Calender Roll Operator Relationship Specialty Start Date End Date Unknown None PCP - General 03/02/11 09/05/20 documented as of this encounter
--- OUTSIDE RECORDS SUMMARY | 2023-10-10 13:43 | XMS_ITS | Clinical Summary ---
Author Organization [facility] Address One [facility] [place] [address] Care Team Providers Care Road Oiler Name Role Phone Emmanuel Ramirez DNP Primary Care Provider Allergies No known active allergies Medications Medication [...] PM EDT Sourced from [place] Conversion Pulse 71 11/06/2020 9:06 AM EDT Temperature - - Respiratory Rate 20 03/07/2011 12:3 7 PM EST Oxygen Saturation 97% 11/06/2020 9:0 6 AM EDT Inhaled Oxygen Concentration - - Weight 104.3 kg (230 lb) 04/20/2012 2:0 0 PM EDT Sourced from [place] Conversion Height 177.8 cm (5' 10) 04/20/2012 [...] Associated Diagnosis Comments HIV SCREEN, 4TH GENERATION ([facility]/APD/[facility]H) Routine 03/07/2011 2:11 PM EST Hepatitis c, chronic from Last 3 Months or Most Recently Relevant to Health Maintenance Results * HIV (03/07/2011 2:11 PM EST) Pathologist [facility] HIV 1/2 Ab Negative [facility] Blood specimen (specimen) 03/07/2011 2:11 PM EST 03/07/2011 2:25 PM EST Zachary Wilburn MD CHEMISTRY ORDERABLE S [facility] from Last 3 Months or Most Recently Relevant to Health Maintenance Care Teams Road Oiler Relationship Specialty Start Date End Date Emmanuel Ramirez DNP [address] [place], [place] [address] PCP - General Family Medicine 04/19/22
--- OUTSIDE RECORDS SUMMARY | 2023-10-10 13:43 | XMS_ITS | Encounter Summary ---
Author Organization [facility] [place] [facility] [place] [address] Care Team Providers Care Supervisor Pumping Name Role Phone Unknown Primary Care Provider Unavailabl e Encounter Details Date Type Department Care Team (Late st Contact Info) Description 06/27/2012 Abstract [facility] [place] Information Services [address] [facility] [phone] Provider, His [place] MD Social History Tobacco [...] LAB RESULT CONVERSION Comment: Sourced from [place] Conversion Basophil % 0.6(Exter nal Lab) 0.0 - 2.0 percent [facility] LAB RESULT CONVERSION Comment: Sourced from [place] Conversion Eosinophils Abs 0.36(Exte rnal Lab) 0.0 - 0.8 THOUS [facility] LAB RESULT CONVERSION Comment: Sourced from [place] Conversion Eos % 6.6(Exter nal Lab) 0.0 - 7.0 percent [facility] RESULT CONVERSION Comment: Sourced from [place] Conversion Hematocrit 47.1(Exte rnal Lab) 42.0 - 52.0 percent [facility] RESULT CONVERSION Comment: Sourced from [place] Conversion Hemoglobin 16.2(Exte rnal Lab) 14.0 - 18.0 g/dl [facility] RESULT CONVERSION Comment: Sourced from [place] Conversion White Blood Cell 5.40(Exte rnal Lab) 4.8 - 10.8 THOUS [facility] RESULT CONVERSION Comment: Sourced from [place] Conversion Large Unstained Cells ABS Count 0.10(Exte rnal Lab) 0.00 - 0.40 THOUS [facility] LAB RESULT CONVERSION Comment: Sourced from [place] Conversion Large Unstained Cells % 1.9(Exter nal Lab) 0.0 - 4.0 percent [facility] LAB RESULT CONVERSION Comment: Sourced from [place] Conversion Lymphocytes Abs 2.01(Exte rnal Lab) 0.90 - 5.20 THOUS [facility] LAB RESULT CONVERSION Comment: Sourced from [place] Conversion Lymph % 37.3(Exte rnal Lab) 19.0 - 48.0 percent [facility] RESULT CONVERSION Comment: Sourced from [place] Conversion Mean Cell Hemoglobin 32.8(EXTE RNAL/ABN) 27 - 31 pg [facility] LAB RESULT CONVERSION Comment: Sourced from [place] Conversion Mean Cell Hemoglobin Concentration 34.3(Exte rnal Lab) 33 - 37 g/dl [facility] RESULT CONVERSION Comment: Sourced from [place] Conversion Mean Cell Volume 95.6(EXTE RNAL/ABN) 80 - 94 FL [facility] RESULT CONVERSION Comment: Sourced from [place] Conversion Monocyte Abs 0.27(Exte rnal Lab) 0.16 - 1.00 THOUS [facility] RESULT CONVERSION Comment: Sourced from [place] Conversion Monocyte % 5.1(Exter nal Lab) 3.4 - 9.0 percent [facility] RESULT CONVERSION Comment: Sourced from [place] Conversion Mean Platelet Volume 8.8(Exter nal Lab) 7.2 - 11.1 FL [facility] RESULT CONVERSION Comment: Sourced from [place] Conversion Neutrophil Absolute (ANC) - Automated 2.62(Exte rnal Lab) 1.90 - 8.00 THOUS [facility] RESULT CONVERSION Comment: Sourced from [place] Conversion Neutrophil % 48.6(Exte rnal Lab) 40.0 - 74.0 percent [facility] RESULT CONVERSION Comment: Sourced from [place] Conversion Platelet 164(Exter nal Lab) 130 - 400 THOUS [facility] RESULT CONVERSION Comment: Sourced from [place] Conversion Red Blood Cell 4.92(Exte rnal Lab) 4.7 - 6.1 MILLIONS [facility] LAB RESULT CONVERSION Comment: Sourced from [place] Conversion RDW coefficient of variation 11.2(EXTE RNAL/ABN) 11.5 - 14.5 percent [facility] RESULT CONVERSION Comment: Sourced from [place] Conversion 06/27/2012 9:50 AM EDT His [place] Provider HEMATOLOGY ORDERAB LES [facility] RESULT CONVERSION documented in this encounter Visit Diagnoses Not on filedocumented in this encounter Care Teams Supervisor Pumping Relationship Specialty Start Date End Date Unknown None PCP - General 03/02/11 09/05/20 documented as of this encounter
--- OUTSIDE RECORDS SUMMARY | 2023-10-10 13:43 | XMS_ITS | Referral Summary ---
Author Organization [facility] Address [address] [place] [address] Care Team Providers Care Senior Care Assistant Name Role Phone Callum Samayoa DO Primary Care Provider +1- [phone] Allergies Active Allergy Reactions Criticality Noted Date Comments Other - See Comments 06/24/2009 No pain meds, narcotics or opiates Medications Medication Sig Dispensed Refills Start Date End Date Status buprenorphine-naloxone (SUBOXONE) 2-0.[address] 4 mg under the tongue daily. Active Active Problems Problem Noted Date Diagnosed Date Psychosis ([facility]) Social History Tobacco Use Types Packs/Day [...] Qualitative Detected( A) Undetected 07/14/2021 14:00 EDT [facility] HCV RNA Quantitative 15,700(H) Undetected IU/mL 07/14/2021 14:00 EDT [facility] Blood VENOUS BLOOD / Unknown 07/10/2021 0:15 EDT 07/10/2021 21:41 EDT Narrative [facility] - 07/14/2021 14:00 EDT The quantification range of this assay is 15 IU/mL to 100,000,000 IU/mL. Testing was performed using the Ty HCV test ([employer] with the ty 6800 System. Provider Outr Resulting Lab CHEMISTRY & BLOOD GAS ORDERABLES [facility] [address] [place] [address] from Last 3 Months or Most Recently Relevant to Health Maintenance Care Teams Senior Care Assistant Relationship Specialty Start Date End Date Callum Samayoa DO [address] [place] [address] [place] [address] PCP - General 06/22/09
--- OUTSIDE RECORDS SUMMARY | 2023-10-10 13:43 | XMS_ITS | Encounter Summary ---
Author Organization [facility] Address [address] [place] [address] Care Team Providers Care Illuminator Name Role Phone Callum Samayoa DO Primary Care Provider +1- [phone] Encounter Details Date Type Department Care Team (Late st Contact Info) Description 06/24/2009 7:34 EDT - 06/24/2009 21:17 EDT Hospital Encounter [facility] [address] [place] [address] Jad Burt MD [address] [facility] [address] [place] [phone] Discharge Disposition: Home or Self Care Social [...] Intraprocedure 1127 (Given - Provid er: Opal Doe - Comment: Given in small doses during [...] 06/24/2009 documented in this encounter Care Teams Illuminator Relationship Specialty Start Date End Date Callum Samayoa, [address] [place] [address] [place] HERNANDEZ [address] PCP - General 06/22/09 documented as of this encounter
--- OUTSIDE RECORDS SUMMARY | 2023-10-10 13:43 | XMS_ITS | Encounter Summary ---
Author Organization [facility] Address One [facility] [place] [address] Care Team Providers Care Polisher Implant Name Role Phone None Primary Care Provider Unavailabl e Encounter Details Date Type Department Care Team (Latest Contact Info) Description 10/04/2020 10:59 AM EDT - 10/04/2020 11:59 PM EDT Hospital Encounter Lab at [address] [phone] Discharge Disposition: Home Social History Tobacco Use [...] AM EDT) Green Hold Sample in lab. [facility] Blood No Charge / Unknown 10/04/2020 9:45 AM EDT 10/04/2020 11:01 AM EDT [place] CHEMISTRY ORDERABLES Performing Organization Address [facility] Co de Phone Number [facility] [address] [place] [address] * D-Dimer, Quantitative (10/04/2020 9:45 AM EDT) Pathologist [facility] D-Dimer 241 0 - 500 FEU ng/ml [facility] Comment: The D-Dimer assay is used [...] BUTTS HEMATOLOGY ORDERABLE S Performing Organization Address City/[facility]/ZIP Co de Phone Number [facility] [address] [place] [address] * pro-Brain Natriuretic Peptide (10/04/2020 9:45 AM EDT) NT-proBNP 18 <=124 pg/mL [facility] Blood Venous Draw / Unknown 10/04/2020 9:45 AM EDT 10/04/2020 11:00 AM EDT Narrative Resulting Agency Comment Spec In Lab [place] CHEMISTRY ORDERABLES [facility] [address] [place] [address] * Basic Metabolic Panel (non-fasting) (10/04/2020 9:45 AM EDT) Glucose 88 65 - 199 mg/dL [facility] Comment:Diabetes: >=200 mg/d L plus symptoms Blood Urea Nitrogen 17 10 - 20 mg/dL [facility] Creatinine 0.83 0.80 - 1.50 mg/dL [facility] Sodium 140 135 - 145 mmol/L [facility] Potassium 4.7 3.5 - 5.0 mmol/L [facility] Comment: Please note: ??Patients with WBC >100,000 may have falsely elevated Potassium levels. ??For accurate Potassium quantification in these patients send serum separator tube (gold top) for subsequent determinations. ??Contact the Clinical Chemistry Laboratory if there are any questions. Chloride 103 98 - 107 mmol/L [facility] Carbon Dioxide 28 22 - 31 mmol/L [facility] Anion Gap 9 5 - 15 mmol/L [facility] Calcium 9.6 8.5 - 10.5 mg/dL [facility] Est Glomerular Filtration Rate 103 >=60 mL/min/1. 73 m?? [facility] Comment: This patient? s estimated glomerular [...] Spec In Lab [place]TS CHEMISTRY ORDERABLES [facility] [address] [place] [address] documented in this encounter Visit Diagnoses Not on filedocumented in this encounter Care Teams Polisher Implant Relationship Specialty Start Date End Date None None PCP - General 09/06/20 04/18/22 documented as of this encounter
--- OUTSIDE RECORDS SUMMARY | 2023-10-10 13:43 | XMS_ITS | Encounter Summary ---
Author Organization [facility] Address [address] [place] [address] Care Team Providers Care Front Desk Monitor Name Role Phone Unavailable Primary Care Provider Unavailabl e Encounter Details Date Type Department Care Team (Latest Contact Info) Description 03/07/2001 11:29 EST - 03/07/2001 11:59 EST Hospital Encounter [address] [address] Jose Greenberg MD [address] [place] [phone] Discharge Disposition: Auto Discharge Social History Tobacco [...]
--- OUTSIDE RECORDS SUMMARY | 2023-10-10 13:43 | XMS_ITS | Encounter Summary ---
Author Organization [facility] Address [address] [place] [address] Care Team Providers Care Chief Administrative Officer Name Role Phone Nick Moreno MD Primary Care Provider +1- [phone] Encounter Details Date Type Department Care Team (Late st Contact Info) Description 06/18/2009 11:20 EDT - 06/18/2009 23:59 EDT Hospital Encounter [address] [address] Jad Burt MD [address] [place] [address], [address] [place] [phone] Discharge Disposition: Home or Self Care Social History Tobacco Use Types Packs/Day Years Used Date Smoking Tobacco: Never Assessed Sex and Gender Information Value Date Recorded Sex Assigned at Not on file Gender Identity Male 06/08/2022 11:45 EDT Sexual Orientation Not on file documented as of this encounter Discharge Disposition Disposition Code Departure Means Destination Home or Self Correction documented in this encounter Plan of Treatment [...] HEMATOLOGY & PF4 ORDERABLES Performing Organization Address City/[facility] Co de Phone Number [facility] [address] [place] [address] * TSH (06/18/2009 11:53 EDT) TSH 3.47 0.35 - 5.00 uIU/ml [facility] Blood specimen (specimen) 06/18/2009 11:53 EDT 06/18/2009 11:54 EDT Jad Burt MD CHEMISTRY & BLOOD GAS ORDERABLES Performing Organization Address [facility] Co de Phone Number [facility] [address] [place] [address] * (ABNORMAL) COMPREHENSIVE METABOLIC PANEL (06/18/2009 11:53 EDT) Potassium 4.4 3.5 - 5.0 mEq/L [facility] Sodium 139 136 - 145 mEq/L [facility] Chloride 103 96 - 110 mEq/L [facility] CO2 27 24 - 32 [...] & BLOOD GAS ORDERABLES Performing Organization Address City/[facility] Co de Phone Number [facility] [address] [place] [address] * PTT (06/18/2009 11:53 EDT) PTT 33 24 - 35 secs [facility] Comment: Therapeutic Heparin range: ??60-90 seconds NOTE NEW REFERENCE RANGE EFFECTIVE 2009 NOTE: ??New Therapeutic Heparin range effective 05/13/2009 Blood specimen (specimen) 06/18/2009 11:53 EDT 06/18/2009 11:54 EDT Jad Burt MD HEMATOLOGY & PF4 ORDERABLES Performing Organization Address City/[facility] Co de Phone Number [facility] [address] [place] [address] * PROTIME (06/18/2009 11:53 EDT) Pro Time [...] HEMATOLOGY & PF4 ORDERABLES Performing Organization Address City/State/[facility] Co de Phone Number [facility] [address] [place] [address] documented in this encounter Visit Diagnoses Not on filedocumented in this encounter Care Teams Chief Administrative Officer Relationship Specialty [place] [address] [place] [phone] PCP - General 06/18/09 06/21/09 documented as of this encounter
--- OUTSIDE RECORDS SUMMARY | 2023-10-10 13:43 | XMS_ITS | Clinical Summary ---
Author Organization [facility] Address [address] [place] [address] Care Team Providers Care Churn Operator Name Role Phone Callum Samayoa DO Primary Care Provider +1- [phone] Allergies Active Allergy Reactions Criticality Noted Date Comments Other - See Comments 06/24/2009 No pain meds, narcotics or opiates Medications Medication Sig Dispensed Refills Start Date End Date Status buprenorphine-naloxone (SUBOXONE) 2-0.[address] 4 mg under the tongue daily. Active Active Problems Problem Noted Date Diagnosed Date Psychosis ([facility]) Social History Tobacco Use Types Packs/Day [...] Detected( A) Undetected 07/14/2021 14:00 EDT [facility] HCV RNA Quantitative 15,700(H) Undetected IU/mL 07/14/2021 14:00 EDT [facility] Blood VENOUS BLOOD / Unknown 07/10/2021 0:15 EDT 07/10/2021 21:41 EDT Narrative [facility] - 07/14/2021 14:00 EDT The quantification range of this assay is 15 IU/mL to 100,000,000 IU/mL. Testing was performed using the Ty HCV test ([employer] with the ty Mobile Experience[employer] System. Provider Outr Resulting Lab CHEMISTRY & BLOOD GAS ORDERABLES [facility] [address] [place] [address] from Last 3 Months or Most Recently Relevant to Health Maintenance Care Teams Churn Operator Relationship Specialty Start Date End Date Callum Samayoa DO [address] [place] [address] [place] [address] PCP - General 06/22/09
--- OUTSIDE RECORDS SUMMARY | 2023-10-10 13:43 | XMS_ITS | Encounter Summary ---
Author Organization [facility] [place] [address] Care Team Providers Care Cartography Supervisor Name Role Phone Emmanuel Ramirez DNP Primary Care Provider Encounter Details Date Type Department Care Team (Late st Contact Info) Description 07/29/2022 Telephone [facility] [place] [phone] Lacie Zamudio LNA Social History Tobacco Use [...] on filedocumented in this encounter Care Teams Cartography Supervisor Relationship Specialty Start Date End Date Emmanuel Ramirez DNP [address] [place] [address] PCP - General Family Medicine 04/19/22 documented as of this encounter
--- OUTSIDE RECORDS SUMMARY | 2023-10-10 13:43 | XMS_ITS | Encounter Summary ---
Author Organization [facility] [place] [address] Care Team Providers Care Medical Front Desk Coordinator Name Role Phone Unknown Primary Care Provider Unavailabl e Encounter Details Date Type Department Care Team (Late st Contact Info) Description 10/31/2011 Telephone [place] [address] Leonor Paulino APRN [facility] [place] [address] Social History Tobacco Use Types Packs/Day Years [...] EDT Spoke with Dr. Moreno from the [place] dept of corrections, [place] is currently incarcerated, heis due for his interferon dose this evening but the jail system cannot get the injection until tomorrow night, which should be fine. We discussed the duration of his treatment course which should be four more weeks, current dose is ribavirin 400 mg bid and pegasys 180 mcg qweek. documented in this encounter Plan of Treatment Not on file documented as of this encounter Visit Diagnoses Not on filedocumented in this encounter Care Teams Medical Front Desk Coordinator Relationship Specialty Start Date End Date Unknown None PCP - General 03/02/11 09/05/20 documented as of this encounter
--- OUTSIDE RECORDS SUMMARY | 2023-10-10 13:43 | XMS_ITS | Encounter Summary ---
[place] [address] Care Team Providers Care Border Police Name Role Phone Emmanuel Ramirez DNP Primary Care Provider Encounter Details Date Type Department Care Team (Late st Contact Info) Description 07/29/2022 Telephone [facility] [place] [phone] Lacie Zamudio LNA Social History Tobacco Use [...] on filedocumented in this encounter Care Teams Border Police Relationship Specialty Start Date End Date Emmanuel Ramirez DNP [address] [place] [address] PCP - General Family Medicine 04/19/22 documented as of this encounter
--- OUTSIDE RECORDS SUMMARY | 2023-10-10 13:43 | XMS_ITS | Encounter Summary ---
[place] [address] Care Team Providers Care Community Association Manager Name Role Phone Emmanuel Ramirez DNP Primary Care Provider Reason for Referral * Consultation (Routine) - Denied Specialty Diagnoses / Procedures Referred By Lexa henson Referred To Contact [facility] Diagnoses Low back pain, unspecified back pain laterality, unspecified chronicity, unspecified whether sciatica present Review with DOOR CUTTER Emmanuel Ramirez DNP [facility] [place] [address] [facility] [place] [address] Referral ID Status Reason Start Date Expiration Date V isits Requested Visits Authorized [id number] Denied Consult, Test & Treat PCP Updated and/or Approved 04/19/2022 04/19/2023 1 0 Encounter Details Date Type Department Care Team (Late st Contact Info) Description 04/19/2022 Transcribe Orders eDH Incoming Referrals [phone] Emmanuel Ramirez DNP [address] [place], [place] [phone] Low back pain, unspecified back pain laterality, [...] present documented in this encounter Care Teams Community Association Manager Relationship Specialty Start Date End Date Emmanuel Ramirez DNP [address] [place] [id number] PCP - General Family Medicine 04/19/22 documented as of this encounter
--- OUTSIDE RECORDS SUMMARY | 2023-10-10 13:44 | XMS_ITS | Encounter Summary ---
Author Organization [facility] [place] [address] Care Team Providers Care Refuse Laborer Name Role Phone Unknown Primary Care Provider Unavailabl e Reason for Visit * Reason Onset Date Comments Prior Authorization 05/13/2011 Hep C Encounter Details Date Type Department Care Team (Late st Contact Info) Description 05/13/2011 Telephone Gastroenterology at [facility] [place] [place] [address] Chandrika Parnell energy projects lead (Hep C) Social History Tobacco Use Types [...] on filedocumented in this encounter Care Teams Refuse Laborer Relationship Specialty Start Date End Date Unknown None PCP - General 03/02/11 09/05/20 documented as of this encounter
--- OUTSIDE RECORDS SUMMARY | 2023-10-10 13:44 | XMS_ITS | Encounter Summary ---
Author Organization [facility] [place] [address] Care Team Providers Care Rehabilitation Medicine Physician Name Role Phone Unknown Primary Care Provider Unavailabl e Reason for Visit * Reason Onset Date Comments Other 06/24/2011 f/u rash Encounter Details Date Type Department Care Team (Late st Contact Info) Description 06/24/2011 Telephone [place] [phone] Leonor Paulino APRN [facility] [place] [address] Other (f/u rash) Social History Tobacco Use [...] Plan for f/u rash per Monie Paulino ENVIRONMENTAL FIELD SERVICES TECHNICIAN: See prior notes of today: Unable to [...] for rash Apply hydrocortisone cream Call gastro senior production supervisor fellow if rash flares again and/or extends over 50% of his body. Continue medications for now Call clinic Monday am for probable appointment to evaluate continuation of treatment medications. documented in this encounter Plan of Treatment Not on file documented as of this encounter Visit Diagnoses Not on filedocumented in this encounter Care Teams Rehabilitation Medicine Physician Relationship Specialty Start Date End Date Unknown None PCP - General 03/02/11 09/05/20 documented as of this encounter
--- OUTSIDE RECORDS SUMMARY | 2023-10-10 13:44 | XMS_ITS | Encounter Summary ---
Author Organization [facility] [place] [address] Care Team Providers Care Hris Developer Name Role Phone Unknown Primary Care Provider Unavailabl e Encounter Details Date Type Department Care Team (Late st Contact Info) Description 05/11/2011 3:30 PM EDT [place] [address] Leonor Paulino, JEN[facility]O [facility] [place] [address] Hepatitis c, chronic Discharge Disposition: Home Social [...] discussed. The patient agrees to see an Alarm Technician if visual changes occur. We also discussed [...] coma documented in this encounter Care Teams Hris Developer Relationship Specialty Start Date End Date Unknown None PCP - General 03/02/11 09/05/20 documented as of this encounter
--- OUTSIDE RECORDS SUMMARY | 2023-10-10 13:44 | XMS_ITS | Encounter Summary ---
Author Organization [facility] [place] [address] Care Team Providers Care Civil Geotechnical Engineer Name Role Phone Unknown Primary Care Provider Unavailabl e Reason for Visit * Reason Onset Date Comments Other 06/24/2011 rash Encounter Details Date Type Department Care Team (Late st Contact Info) Description 06/24/2011 Telephone Gastroenterology at [facility] [address] [place] [phone] Leonor Paulino APRN [facility] [place] [address] Other (rash) Social History Tobacco Use Types [...] our call as well. I have updated IRRIGATIONIST DESIGNER: Kal. documented in this encounter Plan of Treatment Not on file documented as of this encounter Visit Diagnoses Not on filedocumented in this encounter Care Teams Civil Geotechnical Engineer Relationship Specialty Start Date End Date Unknown None PCP - General 03/02/11 09/05/20 documented as of this encounter
--- OUTSIDE RECORDS SUMMARY | 2023-10-10 13:44 | XMS_ITS | Encounter Summary ---
Author Organization [facility] [place] [address] Care Team Providers Care Wire Roller Name Role Phone Unknown Primary Care Provider Unavailabl e Encounter Details Date Type Department Care Team (Late st Contact Info) Description 06/24/2011 Telephone [place] [phone] Leonor Paulino APRN [facility] [place] [address] Social History Tobacco Use Types Packs/Day Years [...] on filedocumented in this encounter Care Teams Wire Roller Relationship Specialty Start Date End Date Unknown None PCP - General 03/02/11 09/05/20 documented as of this encounter
--- OUTSIDE RECORDS SUMMARY | 2023-10-10 13:44 | XMS_ITS | Encounter Summary ---
Author Organization [facility] [place] [address] Care Team Providers Care Animal Bounty Hunter Name Role Phone Unknown Primary Care Provider Unavailabl e Reason for Visit * Reason Comments Follow-up Encounter Details Date Type Department Care Team (Late st Contact Info) Description 07/25/2011 9:30 AM EDT [place] [phone] Leonor Paulino ASSISTANT TEACHER [facility] [place] [address] Hepatitis c, chronic (Primary Dx) Discharge Disposition: [...] to ER and then was referred to pharmacy clinical specialist. The orthopedic surgeon advised that the [...] office. He has a f/u with the pharmacy clinical specialist in next few weeks for thumb and [...] coma documented in this encounter Care Teams Animal Bounty Hunter Relationship Specialty Start Date End Date Unknown None PCP - General 03/02/11 09/05/20 documented as of this encounter
--- OUTSIDE RECORDS SUMMARY | 2023-10-10 13:44 | XMS_ITS | Encounter Summary ---
Author Organization [facility] [place] [address] Care Team Providers Care Construction Representative Name Role Phone Unknown Primary Care Provider Unavailabl e Reason for Visit * Reason Onset Date Comments Results 03/09/2011 Encounter Details Date Type Department Care Team (Late st Contact Info) Description 03/09/2011 Telephone Gastroenterology at [facility] [address] [place] [phone] Leonor Paulino APRN [facility] [place] [address] Results Social History Tobacco Use Types Packs/Day [...] on filedocumented in this encounter Care Teams Construction Representative Relationship Specialty Start Date End Date Unknown None PCP - General 03/02/11 09/05/20 documented as of this encounter
--- OUTSIDE RECORDS SUMMARY | 2023-10-10 13:44 | XMS_ITS | Encounter Summary ---
Author Organization [facility] [place] [address] Care Team Providers Care Loader Operator Supervisor Name Role Phone Unknown Primary Care Provider Unavailabl e Reason for Visit * Reason Comments Hepatitis C Encounter Details Date Type Department Care Team (Late st Contact Info) Description 03/07/2011 1:00 PM EST Office [place] [phone] Leonor Paulino APRN [facility] DR GASTROENTEROLOGY DEPT. [place] [id number] Hepatitis c, chronic (Primary Dx) Discharge Disposition: [...] further health care. He was incarcetated from [phone], he had no tattoo's placed while incarcerated. 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 He denies blood transfusion, he lived with a friend who had hepatitisC no known shared objects. He was previously followed by [facility] and had a liver biopsy which showed stage IIIdisease it was recommended that he pursue treatment but then he violated his parole and was sent back to group home. He was released in September of 2010 and he has transferred his care to [facility] as it is closer and more convenient. 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, he had phlebotomies when he [...] History Narrative Lives aloneSingleRecently laid off from [employer] Family History Problem Relation Age of Onset [...] Hepatitis c, chronic HIV SCREEN, 4TH GENERATION ([facility]) Routine 03/07/2011 2:11 PM EST Hepatitis c, [...] (Bezet) 411 ms MUSE SYSTEM Calculated P [place] 20 degrees MUSE SYSTEM Calculated R [place] 93 degrees MUSE SYSTEM Calculated T [place] 47 degrees MUSE SYSTEM INTERPRETATION Sinus bradycardia [...] Gran % 0.10 0.00 - 0.66 % [facility] Comment: Immature granulocytes(IG's)percentage and absolute count will include metamyelocytes, myelocytes, and promyelocytes. Blood smears from CBCs yielding IG's will be scanned manually for concordance. If this scan disagrees with the automated IG or if promyelocytes are noted, a manual differential will be performed. Immature Gran Absolute 0.01 0.00 - 0.05 x10(3)/mcL [facility] Blood specimen (specimen) 03/07/2011 2:11 PM EST 03/07/2011 2:25 PM EST Zachary Wilburn MD HEMATOLOGY ORDERABL ES [facility] * HCV GENOTYPE (03/07/2011 2:11 PM [...] purpose of identifying the HCV genotype. Method [place] HCV Genotype LiPA. Random primers are used [...] 4c/4d, 4e, 4f, 4h, 5a, or 6a. [facility] Comment: [VERIFIED DATE]03.21.11 Verified By:Genesis Ramon (Electronic Signature) Blood specimen (specimen) 03/07/2011 2:11 PM EST 03/09/2011 7:48 AM EST Zachary Wilburn MD HEMATOLOGY ORDERABL Performing Organization Address [facility] Phone Number [facility] * HCV QUANT (03/07/2011 2:11 PM EST) [facility] HCV Viral Load [id number] IU/mL [facility] HCV Viral Load Result: [id number] Indication for Study: Hepatitis C Infection Analysis: [...] This assay is being performed in the [facility] Molecular Pathology Laboratory. Migue Watkins, Ph.D. Director, Molecular Pathology [facility] Comment: [VERIFIED DATE]03.11.11 Verified By:Genesis Ramon (Electronic Signature) Blood specimen (specimen) 03/07/2011 2:11 PM EST 03/09/2011 7:48 AM EST Zachary Wilburn MD HEMATOLOGY ORDERABL Performing Organization Address [facility] Phone Number [facility] * HFE MUT (03/07/2011 2:11 PM EST) [facility] HFE Mutation RESULTS: ??HETEROZYGOUS POSITIVE FOR THE [...] (C282Y and H63D) are analyzed using [employer] pre-developed assays for SNP detection on an [...] determined by the Molecular Pathology Laboratory at [facility]. This test is used for clinical purposes [...] MD HEMATOLOGY ORDERABL ES Performing Organization Address [facility] de Phone Number C[facility]ER MILLENNIUM * HIV (03/07/2011 2:11 PM EST) HIV 1/2 Ab Negative [facility] Blood specimen (specimen) 03/07/2011 2:11 PM EST 03/07/2011 2:25 PM EST Zachary Wilburn MD CHEMISTRY ORDERABLE S Performing Organization Address [facility] Phone Number [facility] * Cryoglobulin (03/07/2011 2:11 PM EST) Cryoglobulin See Note [facility] Comment:Cryoglobulins negati ve at 24 and 72 hours. Blood specimen (specimen) 03/07/2011 2:11 PM EST 03/07/2011 2:16 PM EST Zachary Wilburn MD CHEMISTRY ORDERABLE S Performing Organization Address [facility] de Phone Number [facility] * (ABNORMAL) Iron and TIBC (03/07/2011 2:11 PM EST) Iron 215(H) 45 - 160 mcg/dL [facility] TIBC 324 250 - 450 mcg/dL [facility] Iron Saturation 66(H) 20 - 50 % [facility] Blood specimen (specimen) 03/07/2011 2:11 PM EST 03/07/2011 2:25 PM EST Zachary Wilburn MD CHEMISTRY ORDERABLE S Performing Organization Address [facility] de Phone Number [facility] MILLENNIUM * Ferritin (03/07/2011 2:11 PM EST) Ferritin 184 30 - 400 ng/mL [facility] Comment: Pediatric reference ranges not verified at [facility], interpret with caution. Reference ranges for females greater than 50 years of age approach values for men, i.e., 30-400 ng/mL. Blood specimen (specimen) 03/07/2011 2:11 PM EST 03/07/2011 2:25 PM EST Zachary Wilburn MD CHEMISTRY ORDERABLE S Performing Organization Address [facility] de Phone Number [facility] * (ABNORMAL) BEN (03/07/2011 2:11 PM EST) BEN Pos(A) Neg [facility] Comment: 1:80 Titer seen with Speckled pattern. ??Is suggestive of autoantibodies to Sm, YARN EXAMINER, SCL-70, or SS-B. Blood specimen (specimen) 03/07/2011 2:11 PM EST 03/08/2011 8:16 AM EST Zachary Wilburn MD LAB SEND OUT ORDERA BLES Performing Organization Address [facility] de Phone Number [facility] * TSH (03/07/2011 2:11 PM EST) Thyroid Stimulating Hormone 1.54 0.27 - 4.20 mcIU/mL [facility] Blood specimen (specimen) 03/07/2011 2:11 PM EST 03/07/2011 2:25 PM EST Zachary Wilburn MD CHEMISTRY ORDERABLE S Performing Organization Address [facility] de Phone Number [facility] * Prothrombin Time (03/07/2011 2:11 PM EST) Prothrombin Time 13.5 12.3 - 14.7 sec [facility] Comment: [facility] Transfusion Committee Guidelines: INR less than 2.0, [...] coma documented in this encounter Care Teams Loader Operator Supervisor Relationship Specialty Start Date End Date Unknown None PCP - General 03/02/11 09/05/20 documented as of this encounter
--- OUTSIDE RECORDS SUMMARY | 2023-10-10 13:44 | XMS_ITS | Encounter Summary ---
Author Organization [facility] [place] [address] Care Team Providers Care Foreign Banknote Teller Trader Name Role Phone Unknown Primary Care Provider Unavailabl e Reason for Visit * Reason Onset Date Comments Medication Refill 05/24/2011 Encounter Details Date Type Department Care Team (Late st Contact Info) Description 05/24/2011 Refill [place] [phone] Leonor Paulino APRN [facility] [place] [address] Social History Tobacco Use Types Packs/Day Years [...] on filedocumented in this encounter Care Teams Foreign Banknote Teller Trader Relationship Specialty Start Date End Date Unknown None PCP - General 03/02/11 09/05/20 documented as of this encounter
--- OUTSIDE RECORDS SUMMARY | 2023-10-10 13:44 | XMS_ITS | Encounter Summary ---
Author Organization [facility] [place] [address] Care Team Providers Care News Agent Name Role Phone Unknown Primary Care Provider Unavailabl e Reason for Visit * Reason Comments Hepatitis C Encounter Details Date Type Department Care Team (Late st Contact Info) Description 08/31/2011 3:00 PM EDT Follow-[place] [phone] Leonor Paulino APRN [facility] DR GASTROENTER[place] [address] Hepatitis c, chronic (Primary Dx) Discharge Disposition: [...] to ER and then was referred to correspondence specialist. The orthopedic surgeon advised that the [...] coma documented in this encounter Care Teams News Agent Relationship Specialty Start Date End Date Unknown None PCP - General 03/02/11 09/05/20 documented as of this encounter
--- OUTSIDE RECORDS SUMMARY | 2023-10-10 13:44 | XMS_ITS | Encounter Summary ---
Author Organization [facility] [place] [address] Care Team Providers Care System Configuration Specialist Name Role Phone Unknown Primary Care Provider Unavailabl e Encounter Details Date Type Department Care Team (Latest Contact Info) Description 03/07/2011 2:25 PM EST - 03/07/2011 11:59 PM EST Hospital Encounter Non-Invasive Cardiology Lab [facility] [address] [place] [address] CLINIC, DR CASTELLANOS Discharge Disposition: Home Social [...] Procedure Name Priority Date/Time Associated Diagnosis Comments [facility] Routine 03/07/2011 1 :58 PM EST documented in this encounter Results * [facility] (03/07/2011 1:58 PM EST) [facility] ? [place] ? Expected Test ? Result [...] of other clinical factors. Test Performed by: [facility] [address] [place] [address] BENNETT MADERA Blood specimen (specimen) 03/07/2011 1:58 PM EST 03/07/2011 2:36 PM EST Leonor Paulino APRN LAB SEND OUT ORDERAB LES BENNETT MADERA documented in this encounter Visit Diagnoses Not on filedocumented in this encounter Care Teams System Configuration Specialist Relationship Specialty Start Date End Date Unknown None PCP - General 03/02/11 09/05/20 documented as of this encounter
--- OUTSIDE RECORDS SUMMARY | 2023-10-10 13:44 | XMS_ITS | Encounter Summary ---
Author Organization [facility] [place] [address] Care Team Providers Care Engineer Intern Name Role Phone Unknown Primary Care Provider Unavailabl e Reason for Visit * Reason Comments Follow-up Encounter Details Date Type Department Care Team (Late st Contact Info) Description 10/26/2011 10:30 AM EDT Follow-[place] [phone] Leonor Paulino APRN [facility] DR GASTROENTEROLOGY DEPT. [place] [id number] Hepatitis c, chronic (Primary Dx) Discharge Disposition: [...] coma documented in this encounter Care Teams Engineer Intern Relationship Specialty Start Date End Date Unknown None PCP - General 03/02/11 09/05/20 documented as of this encounter
--- NOTE | 2023-10-10 13:49 | W.ED.GENAD ---
Discharge Plan Disposition Patient Disposition: Home Discharge Details Clinical Impression: Leg pain, Foot ulceration Primary Care Provider: Jef Balderas ED Provider: Mariella Mendoza Home Meds and New Rx's Prescriptions: Continued meloxicam 7.5 mg tablet See Rx Instructions PO DAILY Rx Instructions: dose unverified acetaminophen [Tylenol] 325 mg capsule See Rx Instructions PO ONCE PRN Rx Instructions: orally once PRN; gabapentin 600 mg tablet 600 mg PO TID Qty: 42 0RF ziprasidone HCl 20 mg capsule 20 mg PO DAILY Qty: 14 0RF Rx Instructions: give with food (meal/snack) bupropion HCl 300 mg tablet extended release 24 hr 300 mg PO DAILY Qty: 14 0RF duloxetine 20 mg capsule,delayed release(DR/EC) 20 mg PO DAILY Qty: 14 0RF Changed docusate sodium [Colace] 100 mg capsule 100 mg PO PRN PRNQty: 14 0RF Rx Instructions: 100 mg orally ; atomoxetine 10 mg capsule 10 mg PO DAILY Qty: 14 0RF Rx Instructions: 10 mg orally ; dose unverified; No Action (DME) Aerochamber Plus Flow-Vu,S Msk 1 EACH spacer 1 ea Miscellaneous QID Rx Instructions: WITH LARGE MASK buprenorphine-naloxone [Suboxone] 12-3 mg film 2 film sublingual DAILY Patient Comments: PLACE TWO FILMS UNDER THE TONGUE EVERY DAY FOR 7 DAYS bupropion HCl 300 mg tablet extended release 24 hr 300 mg PO QAM Qty: 30 0RF Discharge Instructions Additional Instructions: Please call [facility] first thing in the morning to schedule follow-up appointment with your primary care provider. I have refilled all your prescriptions. Your workup today was reassuring. There is no sign infection on your foot, however I encourage you to wash daily with antibacterial soap and water, apply a nonstick dressing, and change the dressing in your socks frequently to prevent your foot from getting wet. I recommend calling the health program analyst to have this further evaluated and treated, as it seems to be causing you discomfort. There is no sign of a blood clot in your right calf. Elevate your legs above heart level to help with your leg swelling. There is no fracture to your right hand. I recommend applying ice to help reduce swelling. Elevate above heart level to help bring down the swelling as well. Return to emergency care if you develop redness to your foot, pus draining, chest pain, difficulty breathing, episodes of passing out, or if you are very worried and need to be rechecked again immediately Referrals: Emmanuel Ramirez NP [NURSE PRACTITIONER] - Lissett Walters DPM [[facility] STAFF PHYSICIAN] - Discharge Data Discharge Date/Time-TO BE ENTERED AT DEPARTURE: 10/10/23 15:23 HPI General Date/Time Provider Initiated Documentation: 10/10/23 13:16. HPI Narrative: [place] is a 53-year-old male who presents to the emergency department today for evaluation of left foot pain and right hand swelling. He was recently discharged from [facility], walked to [place] and was seen in the emergency department on 823 for bilateral lower leg pain and blisters to his left foot. The blisters on the left foot at turned into a shallow ulceration at the base of the second/third toes. No surrounding erythema, this is tender to palpation. He also reports he has been having bilateral leg discomfort since walking from [place], worse in the right side, tender to palpation. No distal numbness/tingling. He does recall falling a couple of days ago, landing on his right hand, currently experiencing swelling to the dorsum of the hand that is tender to palpation. He denies recent fever/chills, chest pain, shortness of breath, congestion, cough, nausea/vomiting, change in p.o. intake, abdominal pain, change in bowel or bladder function. He has not been taking any of his medications other than his Suboxone, not sure when he last took his meds. He does see Emmanuel Polanco NP for PCP. Denies EtOH or drug use, does smoke cigarettes regularly. Physical exam remarkable for approximately 2 1 cm round shallow ulcerations surrounded by macerated skin c/w moisture exposure. No surrounding erythema/warmth or drainage from wound. There is tenderness to palpation diffusely all over foot. Full range of motion to toes, sensation intact. Bilateral calf edema, 45 cm R bolaños vs 45 cm L bolaños. Tenderness to palpation of right calf, no erythema/warmth noted. Easy work of breathing, lung sounds clear bilaterally. Normal heart sounds. Mild swelling over dorsum of right hand. Painless range of motion to fingers. Full painless range of motion of wrist. Sensation intact to fingers. DDx includes but is not limited to : DVT, dependent edema, lymphedema, fracture; low suspicion for osteomyelitis. No red flags at this time concerning for cellulitis to the bottom of the left foot, wounds appear consistent with popped blisters. I did review previous ED visit, patient has already been seen for the bilateral lower leg edema, labs unremarkable at that time, no indication for repeat labs at this time as symptoms are unchanged. However, US ordered to r/o DVT due to continued symptoms- this was reassuring without any acute findings. Hand x-ray negative, no fracture noted. Soft tissue swelling most consistent with contusion. Recommend ice Overall workup today reassuring. Unclear etiology of lower leg discomfort, likely dependent edema. Patient is requesting refill on his medications at this time. I did provide a limited number of tablets, recommend close follow-up with PCP and podiatry f/u as needed. I discussed case with Emmanuel Polanco NP. Although patient says she is his PCP, he is not a regular patient of hers. Recommend establishing care with a PCP- referral made to case management for establishing care with PCP and health and social care teacher as needed. Related Data Home Medications ?Medication ?Instructions ?Recorded ?Confirmed inhalational spacing device 09/12/12 09/30/23 (Aerochamber Plus Flow-Vu,Small Mask) buprenorphine 12 mg-naloxone 3 mg 2 film sublingual DAILY 09/22/22 10/10/23 sublingual film (Suboxone) acetaminophen 325 mg capsule See Rx Instructions PO ONCE PRN 07/05/23 10/10/23 (Tylenol) meloxicam 7.5 mg tablet See Rx Instructions PO DAILY 07/05/23 10/10/23 bupropion HCl 300 mg 24 hr tablet, 300 mg PO QAM #30 tabs 09/27/23 10/10/23 extended release atomoxetine 10 mg capsule 10 mg PO DAILY #14 caps 10/10/23 bupropion HCl 300 mg 24 hr tablet, 300 mg PO DAILY #14 tabs 10/10/23 extended release docusate sodium 100 mg capsule 100 mg PO PRN PRN #14 caps 10/10/23 (Colace) duloxetine 20 mg capsule,delayed 20 mg PO DAILY #14 caps 10/10/23 release gabapentin 600 mg tablet 600 mg PO TID #42 tabs 10/10/23 ziprasidone HCl 20 mg capsule 20 mg PO DAILY #14 caps 10/10/23 Previous Rx's ?Medication ?Instructions ?Recorded bupropion HCl 300 mg 24 hr tablet, 300 mg PO QAM #30 tabs 09/27/23 extended release atomoxetine 10 mg capsule 10 mg PO DAILY #14 caps 10/10/23 bupropion HCl 300 mg 24 hr tablet, 300 mg PO DAILY #14 tabs 10/10/23 extended release docusate sodium 100 mg capsule 100 mg PO PRN PRN #14 caps 10/10/23 (Colace) duloxetine 20 mg capsule,delayed 20 mg PO DAILY #14 caps 10/10/23 release gabapentin 600 mg tablet 600 mg PO TID #42 tabs 10/10/23 ziprasidone HCl 20 mg capsule 20 mg PO DAILY #14 caps 10/10/23 Allergies Allergy/AdvReac Type Severity Reaction Status Date / Time onion Allergy Intermediate Hives Verified 10/10/23 13:19 naproxen Allergy Mild Unknown Verified 10/10/23 13:19 Sulfa (Sulfonamide Allergy Unknown Unknown Verified 10/10/23 13:19 Antibiotics) General Stated Complaint: Orthopedic CHUYITA: 4 Review of Systems Narrative: see HPI Exam Const General: cooperative, healthy appearing, comfortable, no acute distress and anxious Nutritional Appearance: average body habitus Resp Effort & Inspection: normal respiratory effort and able to speak in complete sentences Auscultation: clear to auscultation bilaterally Cardio Rate: regular rate Rhythm: regular rhythm Skin Lesions: lesion noted (shallow ulcerations c/w popped blisters plantar aspect of R foot) Rashes: no rashes Neuro Gait: normal gait Motor: muscle tone normal throughout and strength 5/5 throughout Sensory Exam: no sensory deficits noted Extrem Right upper extremity: hand (Mild swelling to dorsum of hand) Details: normal capillary refill, neuromotor exam normal, neurosensory exam normal and normal ROM of fingers; no abrasions, no lacerations, no ecchymosis, no crepitus and no puncture wound Left upper extremity: normal to inspection Right lower extremity: lower leg Details: tenderness and non-pitting edema Left lower extremity: foot Details: normal capillary refill, tenderness (diffuse tenderness over dorsum and plantar aspect of foot), toes with normal ROM and edema (mild edema to dorsum of foot); no ecchymosis and no puncture wound Psych Speech and Movement: agitated Mood: labile mood Affect: labile affect Course Vital Signs Vital signs: Vital Signs Temperature 36.4 C L 10/10/23 13:17 Pulse 96 H 10/10/23 13:17 Respiratory Rate 12 10/10/23 13:17 Blood Pressure 128/83 10/10/23 13:17 Pulse Oximetry 96 10/10/23 13:17 Temperature 36.4 C L 10/10/23 13:17 Temperature Source Skin 10/10/23 13:17 Pulse 96 H 10/10/23 13:17 Respiratory Rate 12 10/10/23 13:17 Respiratory Effort Normal, Non-Labored 10/10/23 13:32 Blood Pressure 128/83 10/10/23 13:17 Blood Pressure Position Sitting 10/10/23 13:17 Pulse Oximetry 96 10/10/23 13:17 Oxygen Delivery Method Room Air 10/10/23 13:17 Oxygen Flow Rate 0 10/10/23 13:17 Pain Level 8 10/10/23 13:17 Medical Decision Making Imaging Data Radiologic Study: Radiologist's impression: Exam(s) XR FOOT LT COMPLETE EXAM: XR FOOT LT COMPLETE CLINICAL HISTORY: blister at base of 3rd toes. TECHNIQUE: 2D digital imaging was performed. COMPARISON: No exams were available for comparison FINDINGS: 3 views There is some soft tissue swelling over the dorsal aspect of the metatarsals. There is no evidence of fracture or diastasis of the Lisfranc joint. There are mild degenerative changes in the great toe metatarsophalangeal joint. Articulations otherwise appear unremarkable and there no erosions. No radiopaque foreign body. No osseous lesions. Tiny inferior calcaneal spur noted. IMPRESSION: As above but no acute osseous findings. Radiologic Study #2: Radiologist's impression: Exam(s) US LOWER EXTREMITY VENOUS RT EXAM: US LOWER EXTREMITY VENOUS RT CLINICAL HISTORY: R leg swelling, pain TECHNIQUE: Grayscale, color, and doppler imaging of the deep venous system of the right lower extremity was performed. COMPARISON: US US LOWER EXTREMITY VENOUS RT from 09/27/2023 FINDINGS: There is no evidence of intraluminal thrombus and there is normal compression and augmentation demonstrated within the common femoral vein, femoral vein, and popliteal vein. In the ipsilateral calf the interrogated veins also exhibit normal compression/ augmentation properties. The ipsilateral saphenofemoral junction is patent. Small lymph nodes are noted in the right inguinal region. IMPRESSION: 1. No evidence of DVT in the right lower extremity. 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 -hb Psychosis (Acute) 06/08/2022. [facility] Paranoid (Acute) IV drug abuse (Chronic) Herniated disc (Acute) Low back pain (Acute) Bipolar disorder (Chronic) Medication side effects (Acute) Screening for hyperlipidemia (Acute) Elevated liver enzymes (Acute) Medical History Amnestic state Paranoid ideation ADHD Depression Anxiety Abscess of left hand Surgical History Presence of surgical screw in left hand History of surgery on arm S/P right rotator cuff repair Family History Mother Heart disease Father Diabetes Brother Diabetes Hypertension Cancer pancreatic, liver and lung Brother Diabetes Brother Diabetes Sister Cancer pancreatic cancer Social History Smoking/Tobacco Use Status: Current every day Tobacco Type: cigarettes Smoking risk assessment performed?: Yes Alcohol Intake: current Alcohol Intake frequency: a few times a month Alcohol type: beer Drug use: Occasionally Substance use type: marijuana Housing: homeless Do you feel safe at home: Yes Do you feel safe in your relationship?: Yes
== END 2023-10-10 15:23 | disposition home or self-care (01) ==
PROVIDERS: Emergency Provider Nurse Practitioner Family; PCP Physical Therapist
DX: M79.661 Pain in right lower leg (principal); M79.642 Pain in left hand; L97.521 Non-pressure chronic ulcer of other part of left foot limited to breakdown of skin; R25.2 Cramp and spasm; W19.XXXA Unspecified fall, initial encounter
CPT/HCPCS: 99284; 73130; 73630; 93971; 99283

== ENCOUNTER 2023-10-15 01:09 | Emergency (ER) | payer MEDICAID, SELFPAY ==
[2023-10-15] VITALS (23 sets, daily range): BP systolic 119–142; BP diastolic 62–99; PULSE 81–98; RESP 16–22; TEMP 37.2; O2SAT 96–98
--- OUTSIDE RECORDS SUMMARY | 2023-10-15 01:20 | XMS_ITS | Encounter Summary ---
Author Organization [facility] Address [address] [place] [address] Care Team Providers Care Pattern Finisher Name Role Phone Callum Samayoa DO Primary Care Provider +1- [phone] Nick Moreno MD Primary Care Provider [phone]- [phone] Nick Moreno MD Primary Care Provider +1- [phone] Cesar Sellers MD Primary Care Provider +1 -[phone] Encounter Details Date Type Department Care Team (Late st Contact Info) Description 12/16/2005 Results Only [facility] - Map conversion [address] [place] [address] Shana Melo MD [address] [place] [address] Social History Tobacco Use Types Packs/Day Years [...] reading/interpretin g unformatted reports. Name: ? NICK MNOET ? Accession #: ? [id number] ? : ? 1970 (Age: 35) ??M [...] Gross Description: ? Received in formalin labelled [place] and distal segment right biceps tendon is a 2.6 x 1.6 x 0.6 cm rectangular portion of white-watts, focally hemorrhagic, tendonous tissue with moderate detached adipose tissue. ??The specimen is sectioned into two cross sections, a longitudinal section, and entirely submitted as (A1) and (A2). ??(Herrera Horan)/[facility] End of Report [facility] 12/16/2005 12/16/2005 8:5 0 EST Shana Melo MD PATHOLOGY ORDERABLES [facility] [address] [place] [address] documented in this encounter Visit Diagnoses Not on filedocumented in this encounter Care Teams Pattern Finisher Relationship Specialty Start Date End Date Yao, Callum F, DO [address] [place] [address] [place] [address] PCP - General 06/22/09 Nick Moreno MD [address] [place] [phone] PCP - General 06/18/09 06/21/09 Nick Moreno MD [address] [place] [phone] PCP - General 09/30/08 06/17/09 Cesar Sellers MD ATTN: [address] [address] PCP - General 06/12/08 09/29/08 documented as of this encounter
--- OUTSIDE RECORDS SUMMARY | 2023-10-15 01:20 | XMS_ITS | Encounter Summary ---
Author Organization [facility] Address [address] [place] [address] Care Team Providers Care Home Health Registered Nurse Name Role Phone Nick Moreno MD Primary Care Provider [phone]- [phone] Encounter Details Date Type Department Care Team (Late st Contact Info) Description 10/02/2008 10:47 EDT - 10/02/2008 23:59 EDT Hospital Encounter [address] [address] Jad Burt MD [address] [place] [address], [address] [place] [phone] Discharge Disposition: Home or Self Care Social History Tobacco Use Types Packs/Day Years Used Date Smoking Tobacco: Never Assessed Sex and Gender Information Value Date Recorded Sex Assigned at Not on file Gender Identity Male 06/08/2022 11:45 EDT Sexual Orientation Not on file documented as of this encounter Discharge Disposition Disposition Code Departure Means Destination Home or Self Prison documented in this encounter Plan of Treatment [...] & BLOOD GAS ORDERABLES Performing Organization Address [facility] de Phone Number [facility] [address] [place] [address] * HEPATITIS B CORE ANTIBODY (10/02/2008 11:01 EDT) Hep B Core Ab Negative Reference Range: ??Negative Interpretati on depends on clinical setting. [facility] Blood specimen (specimen) 10/02/2008 11:01 EDT 10/02/2008 11:03 EDT Jad Burt MD CHEMISTRY & BLOOD GAS ORDERABLES Performing Organization Address [facility] de Phone Number [facility] [address] [place] [address] * HEPATITIS A TOTAL ANTIBODY (10/02/2008 11:01 EDT) Hep A Antibody Positive Antibody to Hepatitis A detected. Reference Range: ??Negative [facility] Blood specimen (specimen) 10/02/2008 11:01 EDT 10/02/2008 11:03 EDT Jad Burt MD CHEMISTRY & BLOOD GAS ORDERABLES Performing Organization Address [facility] Co de Phone Number [facility] [address] [place] [address] * HEPATITS B SURFACE ANTIGEN (10/02/2008 11:01 EDT) Hepatitis B Surface Ag Negative Reference Range: ??Negative [facility] Blood specimen (specimen) 10/02/2008 11:01 EDT 10/02/2008 11:03 EDT Jad Burt MD CHEMISTRY & BLOOD GAS ORDERABLES [facility] [address] [place] [address] * HEMOCHROMATOSIS (10/02/2008 11:01 EDT) Hemochromatosis Gene [...] PERFORMED BY: ? [facility] ? [facility] ? [address] ? [facility] ? [place] [address] ? These results need to be interpreted [...] do ? not require FDA approval. ??A [place] statute prevents our laboratory ? from releasing [...] EDT Jad Burt MD PACKAGES & DNA DE OBE ORDERABLES Performing Organization Address [facility] de Phone Number [facility] [address] [place] [address] * PTT (10/02/2008 11:01 EDT) PTT 34 20 - 35 secs [facility] Comment:Therapeutic Heparin range: 60-100 seconds Blood specimen (specimen) 10/02/2008 11:01 EDT 10/02/2008 11:03 EDT Jad Burt MD HEMATOLOGY & PF4 ORDERABLES Performing Organization Address [facility] de Phone Number [facility] [address] [place] [address] * PROTIME (10/02/2008 11:01 EDT) Pro Time [...] & PF4 ORDERABLES [facility] [address] [place] [address] documented in this encounter Visit Diagnoses Not on filedocumented in this encounter Care Teams Home Health Registered Nurse Relationship Specialty Start Date End Date Nick Moreno MD [address] [place] [phone] PCP - General 09/30/08 06/17/09 documented as of this encounter
--- OUTSIDE RECORDS SUMMARY | 2023-10-15 01:20 | XMS_ITS | Encounter Summary ---
Author Organization [facility] Address [address] [place] [address] Care Team Providers Care Psychologist Personnel Name Role Phone Callum Samayoa DO Primary Care Provider [phone]- [phone] Encounter Details Date Type Department Care Team (Late st Contact Info) Description 07/10/2021 Lab Requisition [facility] Pathology & Laboratory Medicine - [address] [address] Outr Resulting Lab, Provider Social History Tobacco [...] Qualitative Detected( A) Undetected 07/14/2021 14:00 EDT [facility] HCV RNA Quantitative 15,700(H) Undetected IU/mL 07/14/2021 14:00 EDT [facility] Blood VENOUS BLOOD / Unknown 07/10/2021 0:15 EDT 07/10/2021 21:41 EDT Narrative [facility] - 07/14/2021 14:00 EDT The quantification range of this assay is 15 IU/mL to 100,000,000 IU/mL. Testing was performed using the Ty HCV test ([employer] with the ty 6800 System. Provider Outr Resulting Lab CHEMISTRY & BLOOD GAS ORDERABLES Performing Organization Address [email or web address]] de Phone Number [facility] [address] [place] [address] * (ABNORMAL) ACUTE HEPATITIS PROFILE (07/10/2021 0:15 EDT) Hep B Surface Ag Negative Negative 07/12/2021 13:10 EDT [facility] Hep C Antibody Reactive(A) Negative 13:10 EDT [facility] Comment: Supplemental testing for HCV RNA is ordered to rule out active HCV infection. Hepatitis A Antibody, IgM Negative Negative 07/12/2021 13:10 EDT [facility] Comment:The results of this assay can be falsely lowered due to the consumption of Biotin. Hepatitis B Core Ab, Total Negative Negative 07/12/2021 13:10 EDT [facility] Blood VENOUS BLOOD / Unknown 07/10/2021 0:15 EDT 07/10/2021 21:41 EDT Provider Outr Resulting Lab CHEMISTRY & BLOOD GAS ORDERABLES Performing Organization Address [facility] [[email or web address]] de Phone Number [facility] [address] [place] [address] documented in this encounter Visit Diagnoses Not on filedocumented in this encounter Care Teams Psychologist Personnel Relationship Specialty Start Date End Date Callum Samayoa DO [address] [place] [address] PCP - General 06/22/09 documented as of this encounter
--- OUTSIDE RECORDS SUMMARY | 2023-10-15 01:20 | XMS_ITS | Encounter Summary ---
Author Organization [facility] Address [address] [place] [address] Care Team Providers Care Repairer Art Objects Name Role Phone Callum Samayoa DO Primary Care Provider +1- [phone] Encounter Details Date Type Department Care Team (Late st Contact Info) Description 06/24/2009 7:34 EDT - 06/24/2009 21:17 EDT Hospital Encounter [facility] [address] [place] [address] Jad Burt MD [address] [facility] [address] [place] [phone] Discharge Disposition: Home or Self Care Social [...] Preprocedure 0900 (New Bag - Prov ider: Keiar Mantilla LPN) PRN Medication Order 06/22/2009 06/23/2009 [...] 06/24/2009 documented in this encounter Care Teams Repairer Art Objects Relationship Specialty Start Date End Date Callum Samayoa, [address] [place] [address] [place] [address] PCP - General 06/22/09 documented as of this encounter
--- OUTSIDE RECORDS SUMMARY | 2023-10-15 01:20 | XMS_ITS | Encounter Summary ---
[place] [address] Care Team Providers Care Triple Drum Operator Name Role Phone Emmanuel Ramirez DNP Primary Care Provider Encounter Details Date Type Department Care Team (Late st Contact Info) Description 07/29/2022 Telephone [facility] [place] [phone] Lacie Zamudio LNA Social History Tobacco Use [...] on filedocumented in this encounter Care Teams Triple Drum Operator Relationship Specialty Start Date End Date Emmanuel Ramirez DNP [address] [place] [address] PCP - General Family Medicine 04/19/22 documented as of this encounter
--- OUTSIDE RECORDS SUMMARY | 2023-10-15 01:20 | XMS_ITS | Encounter Summary ---
Author Organization [facility] Address [address] [place] [address] Care Team Providers Care Baseball Inspector Name Role Phone Unavailable Primary Care Provider Unavailabl e Encounter Details Date Type Department Care Team (Latest Contact Info) Description 03/07/2001 11:29 EST - 03/07/2001 11:59 [place] [address] Jose Greenberg MD [address] [place] [phone] Discharge Disposition: Auto Discharge Social History Tobacco [...]
--- OUTSIDE RECORDS SUMMARY | 2023-10-15 01:20 | XMS_ITS | Encounter Summary ---
[place] [address] Care Team Providers Care Nutritionists Name Role Phone Emmanuel Ramirez DNP Primary Care Provider Reason for Referral * Consultation (Routine) - Denied Specialty Diagnoses / Procedures Referred By Lexa henson Referred To [facility] Diagnoses Low back pain, unspecified back pain laterality, unspecified chronicity, unspecified whether sciatica present Review with CIRCULATION TENDER Emmanuel Ramirez DNP [facility] [place] [address] [facility] [place] [address] Referral ID Status Reason Start Date Expiration Date V isits Requested Visits Authorized [id number] Denied Consult, Test & Treat PCP Updated and/or Approved 04/19/2022 04/19/2023 1 0 Encounter Details Date Type Department Care Team (Late st Contact Info) Description 04/19/2022 Transcribe Orders eDH Incoming Referrals [phone] Emmanuel Ramirez DNP [address] [place], [place] [id number] Low back pain, unspecified back pain laterality, [...] present documented in this encounter Care Teams Nutritionists Relationship Specialty Start Date End Date Emmanuel Ramirez DNP [address] [place] [address] PCP - General Family Medicine 04/19/22 documented as of this encounter
--- OUTSIDE RECORDS SUMMARY | 2023-10-15 01:20 | XMS_ITS | Clinical Summary ---
Author Organization [facility] Address [address] [place] [address] Care Team Providers Care Strike Warfare/Missile Systems Officer Name Role Phone Callum Samayoa DO Primary Care Provider +1- [phone] Allergies Active Allergy Reactions Criticality Noted Date [...] Qualitative Detected( A) Undetected 07/14/2021 14:00 EDT [facility] HCV RNA Quantitative 15,700(H) Undetected IU/mL 07/14/2021 14:00 EDT [facility] Blood VENOUS BLOOD / Unknown 07/10/2021 0:15 EDT 07/10/2021 21:41 EDT Narrative [facility] - 07/14/2021 14:00 EDT The quantification range of this assay is 15 IU/mL to 100,000,000 IU/mL. Testing was performed using the Ty HCV test ([employer] with the ty SocialVolt0 System. Provider Outr Resulting Lab CHEMISTRY & BLOOD GAS ORDERABLES [facility] [address] [place] [address] from Last 3 Months or Most Recently Relevant to Health Maintenance Care Teams Strike Warfare/Missile Systems Officer Relationship Specialty Start Date End Date Callum Samayoa DO [address] [place] [address] [place] [address] PCP - General 06/22/09
--- OUTSIDE RECORDS SUMMARY | 2023-10-15 01:20 | XMS_ITS | Encounter Summary ---
Author Organization [facility] Address One [facility] [place] [address] Care Team Providers Care Cinder Dump Crane Operator Name Role Phone None Primary Care Provider Unavailabl e Encounter Details Date Type Department Care Team (Latest Contact Info) Description 11/06/2020 8:30 AM EDT - 11/06/2020 11:59 PM EDT Hospital Encounter XRay at [address] [phone] Claudio Marques MD [address] [place] [address] [place] [address] Left knee pain, unspecified chronicity Discharge Disposition: [...] who have questions please contact the health field care manager that requested your imaging first. ? Electronically signed by: UNRULY SINHA MD, [facility] ([phone]), at 11/06/2020 10:59 AM Narrative 11/06/2020 10:59 [...] patients who have questions please contactthe health field care manager that requested your imaging first. Electronically signed by: UNRULY SINHA MD, [facility] ([phone]), at 11/06/2020 10:59 AM Claudio Marques MD IMG DX ORDERABLES documented in this encounter Visit Diagnoses Diagnosis Left knee pain, unspecified chronicity documented in this encounter Care Teams Cinder Dump Crane Operator Relationship Specialty Start Date End Date None None PCP - General 09/06/20 04/18/22 documented as of this encounter
--- OUTSIDE RECORDS SUMMARY | 2023-10-15 01:20 | XMS_ITS | Encounter Summary ---
Author Organization [facility] Address [address] [place] [address] Care Team Providers Care Small Animal Caretaker Name Role Phone Callum Samayoa DO Primary Care Provider +1- [phone] Encounter Details Date Type Department Care Team [...] on filedocumented in this encounter Care Teams Small Animal Caretaker Relationship Specialty Start Date End Date Callum Samayoa DO [facility] [place] [address] PCP - General 06/22/09 documented as of this encounter
--- OUTSIDE RECORDS SUMMARY | 2023-10-15 01:20 | XMS_ITS | Encounter Summary ---
Author Organization [facility] Address [address] [place] [address] Care Team Providers Care Duco Polisher Name Role Phone Callum Samayoa DO Primary Care Provider +1- [phone] Encounter Details Date Type Department Care Team (Late st Contact Info) Description 09/16/2010 Orders Only [facility] Gastroenterology - [address] [address] Jad Burt MD [address] [facility], [address] [place] [address] Chronic hepatitis C without mention [...] Primary documented in this encounter Care Teams Duco Polisher Relationship Specialty Start Date End Date Callum Samayoa DO [address] [place] [address] [place] [address] PCP - General 06/22/09 documented as of this encounter
--- OUTSIDE RECORDS SUMMARY | 2023-10-15 01:20 | XMS_ITS | Clinical Summary ---
Author Organization [facility] Address One [facility] [place] [address] Care Team Providers Care Customer Services Coordinator Name Role Phone Emmanuel Ramirez DNP Primary Care Provider [phone] Allergies No known active allergies Medications Medication [...] 04/20/2012 2:0 0 PM EDT Sourced from Saline Conversion Height 177.8 cm (5' 10) 04/20/2012 [...] 08/26/2021 Covid-19 Vaccine (1 - 2022-24 season) 2023 Influenza (Flu) vaccine (1 o f 1 - Influenza standard series) 10/08/2023 HIV screen Completed 03/07/2011 Procedures Procedure Name Priority Date/Time Associated Diagnosis Comments HIV SCREEN, 4TH GENERATION ([facility] [place]/CGP/APD/NLH) Routine 03/07/2011 2:11 PM EST Hepatitis c, chronic from Last 3 Months or Most Recently Relevant to Health Maintenance Results * HIV (03/07/2011 2:11 PM EST) Pathologist [facility] HIV 1/2 Ab Negative [facility] Blood specimen (specimen) 03/07/2011 2:11 PM EST 03/07/2011 2:25 PM EST Zachary Wilburn MD CHEMISTRY ORDERABLE S [facility] from Last 3 Months or Most Recently Relevant to Health Maintenance Care Teams Customer Services Coordinator Relationship Specialty Start Date End Date Emmanuel Ramirez DNP [address] [place], [place] [address] PCP - General Family Medicine 04/19/22
--- OUTSIDE RECORDS SUMMARY | 2023-10-15 01:20 | XMS_ITS | Encounter Summary ---
Author Organization [facility] Address [address] [place] [address] Care Team Providers Care Advertising Inserter Name Role Phone Nick Moreno MD Primary Care Provider +1- [phone] Encounter Details Date Type Department Care Team (Late st Contact Info) Description 06/18/2009 11:20 EDT - 06/18/2009 23:59 EDT Hospital Encounter [address] [address] Jad Burt MD [address] [place] [address], [address] [place] [phone] Discharge Disposition: Home or Self Care Social History Tobacco Use Types Packs/Day Years Used Date Smoking Tobacco: Never Assessed Sex and Gender Information Value Date Recorded Sex Assigned at Not on file Gender Identity Male 06/08/2022 11:45 EDT Sexual Orientation Not on file documented as of this encounter Discharge Disposition Disposition Code Departure Means Destination Home or Self Residential documented in this encounter Plan of Treatment [...] HEMATOLOGY & PF4 ORDERABLES Performing Organization Address City/[facility] Co de Phone Number [facility] [address] [place] [address] * TSH (06/18/2009 11:53 EDT) TSH 3.47 0.35 - 5.00 uIU/ml [facility] Blood specimen (specimen) 06/18/2009 11:53 EDT 06/18/2009 11:54 EDT Jad Burt MD CHEMISTRY & BLOOD GAS ORDERABLES Performing Organization Address [facility] Co de Phone Number [facility] [address] [place] [address] * (ABNORMAL) COMPREHENSIVE METABOLIC PANEL (06/18/2009 11:53 [...] & BLOOD GAS ORDERABLES Performing Organization Address City/[facility] Co de Phone Number [facility] [address] [place] [address] * PTT (06/18/2009 11:53 EDT) PTT 33 24 - 35 secs [facility] Comment: Therapeutic Heparin range: ??60-90 seconds NOTE NEW REFERENCE RANGE EFFECTIVE 2009 NOTE: ??New Therapeutic Heparin range effective 05/13/2009 Blood specimen (specimen) 06/18/2009 11:53 EDT 06/18/2009 11:54 EDT Jad Burt MD HEMATOLOGY & PF4 ORDERABLES Performing Organization Address City/[facility] Co de Phone Number [facility] [address] [place] [address] * PROTIME (06/18/2009 11:53 EDT) Pro Time [...] HEMATOLOGY & PF4 ORDERABLES Performing Organization Address City/State/[facility] Co de Phone Number [facility] [address] [place] [address] documented in this encounter Visit Diagnoses Not on filedocumented in this encounter Care Teams Advertising Inserter Relationship Specialty [place] [address] [place] [phone] PCP - General 06/18/09 06/21/09 documented as of this encounter
--- OUTSIDE RECORDS SUMMARY | 2023-10-15 01:20 | XMS_ITS | Encounter Summary ---
Author Organization [facility] Address [address] [place] [address] Care Team Providers Care Chain Tender Name Role Phone Callum Samayoa DO Primary Care Provider +1- [phone] Encounter Details Date Type Department Care Team (Late st Contact Info) Description 01/18/2021 Lab Requisition [facility] Pathology & Laboratory Medicine - [address] [address] Outr Resulting Lab, Provider Social History Tobacco [...] Outr Resulting Lab MICROBIOLOGY - GENERAL ORDERABLES [facility] [address] [place] [address] * COVID-19 TESTING (01/18/2021 11:10 EST) COVID-19 rt-PCR Result Negative Negative 01/19/2021 20:03 EST [facility] Comment: This test has [...] was performed using the ty SARS-CoV-2 assay ([employer] on the Ty 6800 System Performing Lab Ty [facility] 01/19/2021 20:03 EST [facility] Swab 01/18/2021 11:1 0 EST 01/18/2021 22:35 EST Provider Outr Resulting Lab MICROBIOLOGY - GENERAL ORDERABLES [facility] [address] [place] [address] documented in this encounter Visit Diagnoses Not on filedocumented in this encounter Care Teams Chain Tender Relationship Specialty Start Date End Date Callum Samayoa DO [address] [place] [address] [place] [address] PCP - General 06/22/09 documented as of this encounter
--- OUTSIDE RECORDS SUMMARY | 2023-10-15 01:20 | XMS_ITS | Encounter Summary ---
Author Organization [facility] Address [address] [place] [address] Care Team Providers Care Cake Press Operator Name Role Phone Callum Samayoa DO Primary Care Provider +1- [phone] Encounter Details Date Type Department Care Team (Late st Contact Info) Description 09/10/2019 Lab Requisition [facility] Pathology & Laboratory Medicine - [address] [address] Outr Resulting Lab, Provider Social History Tobacco [...] [facility] [address] [place] [address] * COVID-19 TESTING (09/10/2019 12:00 EDT) COVID-19 rt-PCR Result Negative Negative 09/10/2019 21:57 EDT [facility] [...] history, and epidemiological information. Performed on the [employer] Fusion instrument Performing Lab [place] [facility] 09/10/2019 21:57 EDT [facility] Swab 09/10/2019 12:0 0 EDT 09/10/2019 15:30 EDT Provider Outr Resulting Lab MICROBIOLOGY - GENERAL ORDERABLES [facility] [address] [place] [address] documented in this encounter Visit Diagnoses Not on filedocumented in this encounter Care Teams Cake Press Operator Relationship Specialty Start Date End Date Callum Samayoa DO [address] [place] [address] PCP - General 06/22/09 documented as of this encounter
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
--- OUTSIDE RECORDS SUMMARY | 2023-10-15 01:20 | XMS_ITS | Referral Summary ---
Author Organization [facility] Address [address] [place] [address] Care Team Providers Care Motor Vehicle Light Assembler Name Role Phone Callum Samayoa DO Primary Care Provider +1- [phone] Allergies Active Allergy Reactions Criticality Noted Date Comments Other - See Comments 06/24/2009 No pain meds, narcotics or opiates Medications Medication Sig Dispensed Refills Start Date End Date Status buprenorphine-naloxone (SUBOXONE) 2-0.[address] 4 mg under the tongue daily. Active Active Problems Problem Noted Date Diagnosed Date Psychosis ([facility]) Social History Tobacco Use Types [...] Qualitative Detected( A) Undetected 07/14/2021 14:[address] [facility] HCV RNA Quantitative 15,700(H) Undetected IU/mL 07/14/2021 14:[address] [facility] Blood VENOUS BLOOD / Unknown 07/10/2021 0:15 EDT 07/10/2021 21:[address] [facility] - 07/14/2021 14:00 EDT The quantification range of this assay is 15 IU/mL to 100,000,000 IU/mL. Testing was performed using the Ty HCV test ([employer] with the ty 6800 System. Provider Outr Resulting Lab CHEMISTRY & BLOOD GAS ORDERABLES [facility] [address] [place] [address] from Last 3 Months or Most Recently Relevant to Health Maintenance Care Teams Motor Vehicle Light Assembler Relationship Specialty Start Date End Date Callum Samayoa DO [address] [place] [address] [place] [address] PCP - General 06/22/09
--- OUTSIDE RECORDS SUMMARY | 2023-10-15 01:20 | XMS_ITS | Encounter Summary ---
Author Organization [facility] Address [address] [place] [address] Care Team Providers Care Malt Specifications Control Assistant Name Role Phone YaoCallum Primary Care Provider +1- [phone] Encounter Details Date Type Department Care Team (Late st Contact Info) Description 06/24/2009 Results Only *[facility] Gastroenterology - [place] [address] [place] [address] Jad Burt MD [address] [facility] [address] [place] [address] Social History Tobacco Use Types [...] uncomplicated transjugular liver biopsy. Jad Burt MD [facility] IR ORDERABLES * SURGICAL PATHOLOGY (06/24/2009 0:00 EDT) Pathology Report: SURGICAL PATHOLOGY REPORT ? Reports generated via electronic interface contain original data; ? however they are lacking the format of the original report. ? Caution should be taken when reading/interpreti ng unformatted reports. ? Name: ? NICK CHIU ? Accession #: ? [id number] ? : ? 1970 (Age: 38) ??M [...] Gross Description: ? Received in ??formalin labelled Bollinger, Nick and liver bx are six ?? [...] PATHOLOGY ORDER [facility] [address] [place] [address] documented in this encounter Visit Diagnoses Not on filedocumented in this encounter Care Teams Malt Specifications Control Assistant Relationship Specialty Start Date End Date Callum Samayoa, DO [address] [place] [address] PCP - General 06/22/09 documented as of this encounter
--- OUTSIDE RECORDS SUMMARY | 2023-10-15 01:20 | XMS_ITS | Encounter Summary ---
Author Organization [facility] Address One [facility] [place] [address] Care Team Providers Care Lead Operator Name Role Phone Emmanuel Ramirez DNP Primary Care Provider Encounter Details Date Type Department Care Team (Late st Contact Info) Description 07/07/2022 Ancillary Procedure Radiology Library at [facility] [place] [address] Emmanuel Ramirez DNP [address] [place], [place] [id number] Social History Tobacco Use Types Packs/Day Years [...] auto-finalizing. It's purpose is for storage only. Emmaunel Ramirez DNP IMG FILM LIBRARY OR DERABLES [place], [place] documented in this encounter Visit Diagnoses Not on filedocumented in this encounter Care Teams Lead Operator Relationship Specialty Start Date End Date Emmanuel Ramirez DNP [address] [place] [id number] PCP - General Family Medicine 04/19/22 documented as of this encounter
--- OUTSIDE RECORDS SUMMARY | 2023-10-15 01:20 | XMS_ITS | Encounter Summary ---
Author Organization [facility] Address [address] [place] [address] Care Team Providers Care Farm Management Professor Name Role Phone Callum Samayoa DO Primary Care Provider +1- [phone] Encounter Details Date Type Department Care Team (Late st Contact Info) Description 09/14/2019 Lab Requisition [facility] Pathology & Laboratory Medicine - [address] [address] Outr Resulting Lab, Provider Social History Tobacco [...] Outr Resulting Lab MICROBIOLOGY - GENERAL ORDERABLES [facility] [address] [place] [address] * COVID-19 TESTING (09/14/2019 11:52 EDT) COVID-19 rt-PCR Result Negative Negative 09/15/2019 12:04 EDT [facility] Comment: This test [...] history, and epidemiological information. Performed on the Attention Point Fusion instrument Performing Lab [place] [facility] Lab 09/15/2019 12:04 EDT [facility] Swab 09/14/2019 11:5 2 EDT 09/14/2019 23:08 EDT Provider Outr Resulting Lab MICROBIOLOGY - GENERAL ORDERABLES [facility] [address] [place] [address] documented in this encounter Visit Diagnoses Not on filedocumented in this encounter Care Teams Farm Management Professor Relationship Specialty Start Date End Date Callum Samayoa DO [address] [place] [address] PCP - General 06/22/09 documented as of this encounter
--- OUTSIDE RECORDS SUMMARY | 2023-10-15 01:20 | XMS_ITS | Encounter Summary ---
Author Organization [facility] [place] [address] Care Team Providers Care Clinical Director Name Role Phone Emmanuel Ramirez DNP Primary Care Provider Encounter Details Date Type Department Care Team (Late st Contact Info) Description 07/29/2022 Telephone [facility] [place] [phone] Lacie Zamudio LNA Social History Tobacco Use [...] on filedocumented in this encounter Care Teams Clinical Director Relationship Specialty Start Date End Date Emmanuel Ramirez DNP [address] [place] [address] PCP - General Family Medicine 04/19/22 documented as of this encounter
--- OUTSIDE RECORDS SUMMARY | 2023-10-15 01:20 | XMS_ITS | Encounter Summary ---
Author Organization [facility] Address [address] [place] [address] Care Team Providers Care Rehab Therapy Manager Name Role Phone YaoCallum Primary Care Provider +1- [phone] Reason for Visit * Reason Onset Date Comments Other 06/21/2010 hep c.Waiting to schedule appt. to start treatment. Encounter Details Date Type Department Care Team (Late st Contact Info) Description 06/21/2010 Telephone [facility] Gastroenterology - [address] [address] Jad Burt MD [address] [facility], [address] [place] [address] Other (hep c.Waiting to schedule [...] on filedocumented in this encounter Care Teams Rehab Therapy Manager Relationship Specialty Start Date End Date Callum Samayoa DO [address] [place] [address] PCP - General 06/22/09 documented as of this encounter
--- OUTSIDE RECORDS SUMMARY | 2023-10-15 01:21 | XMS_ITS | Encounter Summary ---
Author Organization [facility] [place] [address] Care Team Providers Care Financial Solutions Advisor Name Role Phone Unknown Primary Care Provider Unavailabl e Encounter Details Date Type Department Care Team (Latest Contact Info) Description 03/07/2011 2:25 PM EST - 03/07/2011 11:59 PM EST Hospital Encounter Non-Invasive Cardiology Lab [facility] [address] [place] [address] CL[address], DR CASTELLANOS Discharge Disposition: Home Social [...] Procedure Name Priority Date/Time Associated Diagnosis Comments [facility] TEST-ULYSSES Routine 03/07/2011 1 :58 PM EST documented in this encounter Results * [facility] TEST-ULYSS[facility] (03/07/2011 1:58 PM EST) [facility] ? [place] ? Expected Test ? Result [...] of other clinical factors. Test Performed by: [facility] [address] [place] [address] BENNETT MADERA Blood specimen (specimen) 03/07/2011 1:58 PM EST 03/07/2011 2:36 PM EST Leonor Paulino APRN LAB SEND OUT ORDERAB LES BENNETT MADERA documented in this encounter Visit Diagnoses Not on filedocumented in this encounter Care Teams Financial Solutions Advisor Relationship Specialty Start Date End Date Unknown None PCP - General 03/02/11 09/05/20 documented as of this encounter
--- OUTSIDE RECORDS SUMMARY | 2023-10-15 01:21 | XMS_ITS | Encounter Summary ---
Author Organization [facility] One [facility] [place] [address] Care Team Providers Care Harm Reduction Worker Name Role Phone Unknown Primary Care Provider Unavailabl e Encounter Details Date Type Department Care Team (Late st Contact Info) Description 06/27/2012 Abstract [facility] Information Services [address] [facility] [place] [phone] Provider, His [place] MD Social History Tobacco [...] LAB RESULT CONVERSION Comment: Sourced from [facility] Conversion Basophil % 0.6(Exter nal Lab) 0.0 - 2.0 percent [facility] RESULT CONVERSION Comment: Sourced from [facility] Conversion Eosinophils Abs 0.36(Exte rnal Lab) 0.0 - 0.8 THOUS [facility] RESULT CONVERSION Comment: Sourced from [place] Conversion Eos % 6.6(Exter nal Lab) 0.0 - 7.0 percent [facility] RESULT CONVERSION Comment: Sourced from [facility] Conversion Hematocrit 47.1(Exte rnal Lab) 42.0 - 52.0 percent [facility] RESULT CONVERSION Comment: Sourced from [place] Conversion Hemoglobin 16.2(Exte rnal Lab) 14.0 - 18.0 g/dl [facility] RESULT CONVERSION Comment: Sourced from [place] Conversion White Blood Cell 5.40(Exte rnal Lab) 4.8 - 10.8 THOUS [facility] RESULT CONVERSION Comment: Sourced from [facility] [place] Conversion Large Unstained Cells ABS Count 0.10(Exte rnal Lab) 0.00 - 0.40 THOUS [facility] RESULT CONVERSION Comment: Sourced from [place] [facility] Conversion Large Unstained Cells % 1.9(Exter nal Lab) 0.0 - 4.0 percent [facility] RESULT CONVERSION Comment: Sourced from [place] [facility] Conversion Lymphocytes Abs 2.01(Exte rnal Lab) 0.90 - 5.20 THOUS [facility] RESULT CONVERSION Comment: Sourced from [place] [facility] Conversion Lymph % 37.3(Exte rnal Lab) 19.0 - 48.0 percent [facility] RESULT CONVERSION Comment: Sourced from [place] [facility] Conversion Mean Cell Hemoglobin 32.8(EXTE RNAL/ABN) 27 - 31 pg [facility] RESULT CONVERSION Comment: Sourced from [place] [facility] Conversion Mean Cell Hemoglobin Concentration 34.3(Exte rnal Lab) 33 - 37 g/dl [facility] RESULT CONVERSION Comment: Sourced from [place] [facility] Conversion Mean Cell Volume 95.6(EXTE RNAL/ABN) 80 - 94 FL [facility] RESULT CONVERSION Comment: Sourced from [place] Conversion Monocyte Abs 0.27(Exte rnal Lab) 0.16 - 1.00 THOUS [facility] RESULT CONVERSION Comment: Sourced from [place] [facility] Conversion Monocyte % 5.1(Exter nal Lab) 3.4 - 9.0 percent [facility] RESULT CONVERSION Comment: Sourced from [facility] [place] Conversion Mean Platelet Volume 8.8(Exter nal Lab) 7.2 - 11.1 FL [facility] RESULT CONVERSION Comment: Sourced from [facility] [place] Conversion Neutrophil Absolute (ANC) - Automated 2.62(Exte rnal Lab) 1.90 - 8.00 THOUS [facility] RESULT CONVERSION Comment: Sourced from [place] Conversion Neutrophil % 48.6(Exte rnal Lab) 40.0 - 74.0 percent [facility] RESULT CONVERSION Comment: Sourced from [place] Conversion Platelet 164(Exter nal Lab) 130 - 400 THOUS [facility] RESULT CONVERSION Comment: Sourced from [facility] Conversion Red Blood Cell 4.92(Exte rnal Lab) 4.7 - 6.1 MILLIONS [facility] RESULT CONVERSION Comment: Sourced from [place] Conversion RDW coefficient of variation 11.2(EXTE RNAL/ABN) 11.5 - 14.5 percent [facility] RESULT CONVERSION Comment: Sourced from [place] Conversion 06/27/2012 9:50 AM EDT His [place] Provider HEMATOLOGY ORDERAB LES [facility] RESULT CONVERSION documented in this encounter Visit Diagnoses Not on filedocumented in this encounter Care Teams Harm Reduction Worker Relationship Specialty Start Date End Date Unknown None PCP - General 03/02/11 09/05/20 documented as of this encounter
--- OUTSIDE RECORDS SUMMARY | 2023-10-15 01:21 | XMS_ITS | Encounter Summary ---
Author Organization [facility] One [facility] [place] [address] Care Team Providers Care Research And Development Engineer Name Role Phone Unknown Primary Care Provider Unavailabl e Encounter Details Date Type Department Care Team (Late st Contact Info) Description 03/21/2012 Abstract [facility] Information Services [address] [facility] [place] [phone] Provider, His [place] MD Social History Tobacco [...] LAB RESULT CONVERSION Comment: Sourced from [facility] Conversion Basophil % 0.6(Exter nal Lab) 0.0 - 2.0 percent [facility] RESULT CONVERSION Comment: Sourced from [facility] Conversion Eosinophils Abs 0.17(Exte rnal Lab) 0.0 - 0.8 THOUS [facility] RESULT CONVERSION Comment: Sourced from [place] Conversion Eos % 3.3(Exter nal Lab) 0.0 - 7.0 percent [facility] RESULT CONVERSION Comment: Sourced from [facility] Conversion Hematocrit 50.8(Exte rnal Lab) 42.0 - 52.0 percent [facility] RESULT CONVERSION Comment: Sourced from [place] Conversion Hemoglobin 17.2(Exte rnal Lab) 14.0 - 18.0 g/dl [facility] RESULT CONVERSION Comment: Sourced from [place] Conversion White Blood Cell 5.29(Exte rnal Lab) 4.8 - 10.8 THOUS [facility] RESULT CONVERSION Comment: Sourced from [facility] [place] Conversion Large Unstained Cells ABS Count 0.06(Exte rnal Lab) 0.00 - 0.40 THOUS [facility] RESULT CONVERSION Comment: Sourced from [place] Conversion Large Unstained Cells % 1.0(Exter nal Lab) 0.0 - 4.0 percent [facility] RESULT CONVERSION Comment: Sourced from [place] Conversion Lymphocytes Abs 1.24(Exte rnal Lab) 0.90 - 5.20 THOUS [facility] RESULT CONVERSION Comment: Sourced from [place] Conversion Lymph % 23.4(Exte rnal Lab) 19.0 - 48.0 percent [facility] RESULT CONVERSION Comment: Sourced from [place] Conversion Macrocyte +(Externa l Lab) [facility] RESULT CONVERSION Comment: Sourced from [place] Conversion Mean Cell Hemoglobin 33.7(EXTE RNAL/ABN) 27 - 31 pg [facility] RESULT CONVERSION Comment: Sourced from [facility] [place] Conversion Mean Cell Hemoglobin Concentration 33.8(Exte rnal Lab) 33 - 37 g/dl [facility] RESULT CONVERSION Comment: Sourced from [facility] [place] Conversion Mean Cell Volume 99.8(EXTE RNAL/ABN) 80 - 94 FL [facility] RESULT CONVERSION Comment: Sourced from [place] Conversion Monocyte Abs 0.20(Exte rnal Lab) 0.16 - 1.00 THOUS [facility] RESULT CONVERSION Comment: Sourced from [place] Conversion Monocyte % 3.9(Exter nal Lab) 3.4 - 9.0 percent [facility] RESULT CONVERSION Comment: Sourced from [place] Conversion Mean Platelet Volume 8.9(Exter nal Lab) 7.2 - 11.1 FL [facility] RESULT CONVERSION Comment: Sourced from [facility] Conversion Neutrophil Absolute (ANC) - Automated 3.59(Exte rnal Lab) 1.90 - 8.00 THOUS [facility] RESULT CONVERSION Comment: Sourced from [place] Conversion Neutrophil % 67.9(Exte rnal Lab) 40.0 - 74.0 percent [facility] RESULT CONVERSION Comment: Sourced from [facility] Conversion Platelet 153(Exter nal Lab) 130 - 400 THOUS [facility] RESULT CONVERSION Comment: Sourced from [place] Conversion Red Blood Cell 5.09(Exte rnal Lab) 4.7 - 6.1 MILLIONS [facility] RESULT CONVERSION Comment: Sourced from [facility] [place] Conversion RDW coefficient of variation 13.3(Exte rnal Lab) 11.5 - 14.5 percent [facility] RESULT CONVERSION Comment: Sourced from [place] Conversion 03/21/2012 3:17 PM EST His [place] Provider HEMATOLOGY ORDERAB LES [facility] RESULT CONVERSION documented in this encounter Visit Diagnoses Not on filedocumented in this encounter Care Teams Research And Development Engineer Relationship Specialty Start Date End Date Unknown None PCP - General 03/02/11 09/05/20 documented as of this encounter
--- OUTSIDE RECORDS SUMMARY | 2023-10-15 01:21 | XMS_ITS | Encounter Summary ---
Author Organization [facility] [place] [address] Care Team Providers Care Concrete Products Dispatcher Name Role Phone Unknown Primary Care Provider Unavailabl e Encounter Details Date Type Department Care Team (Late st Contact Info) Description 10/31/2011 Telephone [place] [address] Leonor Paulino APRN [facility] [place] [address] Social History Tobacco Use Types Packs/Day Years [...] EDT Spoke with Dr. Moreno from the [place] dept of corrections, [place] is currently incarcerated, heis due for his interferon dose this evening but the halfway system cannot get the injection until tomorrow night, which should be fine. We discussed the duration of his treatment course which should be four more weeks, current dose is ribavirin 400 mg bid and pegasys 180 mcg qweek. documented in this encounter Plan of Treatment Not on file documented as of this encounter Visit Diagnoses Not on filedocumented in this encounter Care Teams Concrete Products Dispatcher Relationship Specialty Start Date End Date Unknown None PCP - General 03/02/11 09/05/20 documented as of this encounter
--- OUTSIDE RECORDS SUMMARY | 2023-10-15 01:21 | XMS_ITS | Encounter Summary ---
Author Organization [facility] [place] [address] Care Team Providers Care Regional Clinical Director Name Role Phone Unknown Primary Care Provider Unavailabl e Encounter Details Date Type Department Care Team (Late st Contact Info) Description 05/11/2011 3:30 PM EDT [place] [address] Leonor Paulino, [facility] [place] [address] Hepatitis c, chronic Discharge Disposition: Home Social [...] discussed. The patient agrees to see an Breaker Tender if visual changes occur. We also discussed [...] coma documented in this encounter Care Teams Regional Clinical Director Relationship Specialty Start Date End Date Unknown None PCP - General 03/02/11 09/05/20 documented as of this encounter
--- OUTSIDE RECORDS SUMMARY | 2023-10-15 01:21 | XMS_ITS | Encounter Summary ---
Author Organization [facility] Address One [facility] [place] [address] Care Team Providers Care Zumba Instructor Name Role Phone None Primary Care Provider Unavailabl e Encounter Details Date Type Department Care Team (Late st Contact Info) Description 10/30/2020 Telephone Orthopaedics at [address] [address] Keyana Meehan LPN Social History [...] Received a call from nurse Shila at [facility]. She is asking for an appointment for [place]. He has Lt knee pain and swelling. NKI. Appointment scheduled with xrays. documented in this encounter Plan of Treatment Not on file documented as of this encounter Visit Diagnoses Not on filedocumented in this encounter Care Teams Zumba Instructor Relationship Specialty Start Date End Date None None PCP - General 09/06/20 04/18/22 documented as of this encounter
--- OUTSIDE RECORDS SUMMARY | 2023-10-15 01:21 | XMS_ITS | Encounter Summary ---
Author Organization [facility] [place] [address] Care Team Providers Care Inspector Fuel Hose Name Role Phone Unknown Primary Care Provider Unavailabl e Reason for Visit * Reason Onset Date Comments Medication Refill 05/24/2011 Encounter Details Date Type Department Care Team (Late st Contact Info) Description 05/24/2011 Refill [place] [phone] Leonor Paulino APRN [facility] [place] [address] Social History Tobacco Use Types Packs/Day Years [...] on filedocumented in this encounter Care Teams Inspector Fuel Hose Relationship Specialty Start Date End Date Unknown None PCP - General 03/02/11 09/05/20 documented as of this encounter
--- OUTSIDE RECORDS SUMMARY | 2023-10-15 01:21 | XMS_ITS | Encounter Summary ---
Author Organization [facility] [place] [address] Care Team Providers Care Hvac Installation Technician Name Role Phone Unknown Primary Care Provider Unavailabl e Reason for Visit * Reason Comments Hepatitis C Encounter Details Date Type Department Care Team (Late st Contact Info) Description 03/07/2011 1:00 PM EST Office [place] [phone] Leonor Paulino APRN [facility] DR GASTROENTEROLOGY DEPT. [place] [id number] Hepatitis c, chronic (Primary Dx) Discharge Disposition: [...] further health care. He was incarcetated from [id number], he had no tattoo's placed while incarcerated. 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 He denies blood transfusion, he lived with a friend who had hepatitisC no known shared objects. He was previously followed by [facility] and had a liver biopsy which showed stage IIIdisease it was recommended that he pursue treatment but then he violated his parole and was sent back to senior living. He was released in September of 2010 and he has transferred his care to [facility] as it is closer and more convenient. He was diagnosed in senior living with Hemochromatosis, he had phlebotomies when he [...] History Narrative Lives aloneSingleRecently laid off from [employer] Family History Problem Relation Age of Onset [...] Hepatitis c, chronic HIV SCREEN, 4TH GENERATION ([facility]/CGP/APD/NLH) Routine 03/07/2011 2:11 PM [...] (Bezet) 411 ms MUSE SYSTEM Calculated P Hamilton 20 degrees MUSE SYSTEM Calculated R Hamilton 93 degrees MUSE SYSTEM Calculated T Hamilton 47 degrees MUSE SYSTEM INTERPRETATION Sinus bradycardia [...] Gran % 0.10 0.00 - 0.66 % [facility]NEY[facility]UM Comment: Immature granulocytes(IG's)percentage and absolute count will include metamyelocytes, myelocytes, and promyelocytes. Blood smears from CBCs yielding IG's will be scanned manually for concordance. If this scan disagrees with the automated IG or if promyelocytes are noted, a manual differential will be performed. Immature Gran Absolute 0.01 0.00 - 0.05 x10(3)/mcL [facility] Blood specimen (specimen) 03/07/2011 2:11 PM EST 03/07/2011 2:25 PM EST Zachary Wilburn MD HEMATOLOGY ORDERABL ES [facility] * HCV GENOTYPE (03/07/2011 2:11 PM [...] purpose of identifying the HCV genotype. [facility] HCV Genotype LiPA. Random primers are used [...] 4c/4d, 4e, 4f, 4h, 5a, or 6a. [facility] Comment: [VERIFIED DATE]03.21.11 Verified By:Genesis Ramon (Electronic Signature) Blood specimen (specimen) 03/07/2011 2:11 PM EST 03/09/2011 7:48 AM EST Zachary Wilburn MD HEMATOLOGY ORDERABL Performing Organization Address [facility] Phone Number [facility] * HCV QUANT (03/07/2011 2:11 PM EST) [facility] HCV Viral Load [id number] IU/mL [facility] HCV Viral Load Result: [id number] Indication for Study: Hepatitis C Infection Analysis: [...] This assay is being performed in the [facility] Molecular Pathology Laboratory. Migue Watkins, Ph.D. Director, Molecular Pathology [facility] Comment: [VERIFIED DATE]03.11.11 Verified By:Genesis Ramon (Electronic Signature) Blood specimen (specimen) 03/07/2011 2:11 PM EST 03/09/2011 7:48 AM EST Zachary Wilburn MD HEMATOLOGY ORDERABL Performing Organization Address [facility] Phone Number [facility] * HFE MUT (03/07/2011 2:11 PM EST) [facility] HFE Mutation RESULTS: ??HETEROZYGOUS POSITIVE FOR THE [...] (C282Y and H63D) are analyzed using [employer] pre-developed assays for SNP detection on an [...] determined by the Molecular Pathology Laboratory at [facility]. This test is used for clinical purposes [...] MD HEMATOLOGY ORDERABL ES Performing Organization Address [facility] de Phone Number [facility]ERNER MILLENNIUM * HIV (03/07/2011 2:11 PM EST) HIV 1/2 Ab Negative [facility] Blood specimen (specimen) 03/07/2011 2:11 PM EST 03/07/2011 2:25 PM EST Zachary Wilburn MD CHEMISTRY ORDERABLE S Performing Organization Address [facility] Phone Number [facility] * Cryoglobulin (03/07/2011 2:11 PM EST) Cryoglobulin See Note [facility] Comment:Cryoglobulins negati ve at 24 and 72 hours. Blood specimen (specimen) 03/07/2011 2:11 PM EST 03/07/2011 2:16 PM EST Zachary Wilburn MD CHEMISTRY ORDERABLE S Performing Organization Address [facility] de Phone Number [facility] * (ABNORMAL) Iron and TIBC (03/07/2011 2:11 PM EST) Iron 215(H) 45 - 160 mcg/dL [facility]NI[facility] TIBC 324 250 - 450 mcg/dL [facility] Iron Saturation 66(H) 20 - 50 % [facility] MILLENNIUM Blood specimen (specimen) 03/07/2011 2:11 PM EST 03/07/2011 2:25 PM EST Zachary Wilburn MD CHEMISTRY ORDERABLE S Performing Organization Address [facility] de Phone Number [facility]ERNER MILLENNIUM * Ferritin (03/07/2011 2:11 PM EST) Ferritin 184 30 - 400 ng/mL [facility] Comment: Pediatric reference ranges not verified at [facility], interpret with caution. Reference ranges for females greater than 50 years of age approach values for men, i.e., 30-400 ng/mL. Blood specimen (specimen) 03/07/2011 2:11 PM EST 03/07/2011 2:25 PM EST Zachary Wilburn MD CHEMISTRY ORDERABLE S Performing Organization Address [facility] de Phone Number [facility] * (ABNORMAL) BEN (03/07/2011 2:11 PM EST) BEN Pos(A) Neg [facility] Comment: 1:80 Titer seen with Speckled pattern. ??Is suggestive of autoantibodies to Sm, CLUB LICENSEE, SCL-70, or SS-B. Blood specimen (specimen) 03/07/2011 2:11 PM EST 03/08/2011 8:16 AM EST Zachary Wilburn MD LAB SEND OUT ORDERA BLES Performing Organization Address [facility] de Phone Number [facility] * TSH (03/07/2011 2:11 PM EST) Thyroid Stimulating Hormone 1.54 0.27 - 4.20 mcIU/mL [facility] Blood specimen (specimen) 03/07/2011 2:11 PM EST 03/07/2011 2:25 PM EST Zachary Wilburn MD CHEMISTRY ORDERABLE S Performing Organization Address [facility] Co de Phone Number [facility] * Prothrombin Time (03/07/2011 2:11 PM EST) Prothrombin Time 13.5 12.3 - 14.7 sec [facility] Comment: [facility] Transfusion Committee Guidelines: INR less than [...] coma documented in this encounter Care Teams Hvac Installation Technician Relationship Specialty Start Date End Date Unknown None PCP - General 03/02/11 09/05/20 documented as of this encounter
--- OUTSIDE RECORDS SUMMARY | 2023-10-15 01:21 | XMS_ITS | Encounter Summary ---
Author Organization [facility] [place] [address] Care Team Providers Care Clean Up Worker Name Role Phone Unknown Primary Care Provider Unavailabl e Encounter Details Date Type Department Care Team (Late st Contact Info) Description 04/20/2012 1:30 PM EDT Procedure visit [address] [phone] Radiology, [place] Social History Tobacco Use Types [...] on filedocumented in this encounter Care Teams Clean Up Worker Relationship Specialty Start Date End Date Unknown None PCP - General 03/02/11 09/05/20 documented as of this encounter
--- OUTSIDE RECORDS SUMMARY | 2023-10-15 01:21 | XMS_ITS | Encounter Summary ---
Author Organization [facility] Address [facility] [place] [address] Care Team Providers Care Professional Bondsman Name Role Phone None Primary Care Provider Unavailabl e Reason for Visit * Reason Comments Left Knee Pain Encounter Details Date Type Department Care Team (Late st Contact Info) Description 11/06/2020 9:00 AM EDT Office Visit Orthopaedics at [address] [phone] Aryan Pendleton PA [address] [place] [address] [place] [address] Left knee pain, unspecified chronicity; [...] meniscal pathology-this willneed to be coordinated through [facility] department nursing staff. He will need [...] who have questions please contact the health outdoor emergency care technician that requested your imaging first. ? Electronically signed by: UNRULY SINHA MD, [facility] ([phone]), at 11/06/2020 10:59 AM Narrative 11/06/2020 10:59 [...] patients who have questions please contactthe health outdoor emergency care technician that requested your imaging first. Electronically signed by: UNRULY SINHA MD, [facility] ([phone]), at 11/06/2020 10:59 AM Claudio Marques MD [...] mg documented in this encounter Care Teams Professional Bondsman Relationship Specialty Start Date End Date None None PCP - General 09/06/20 04/18/22 documented as of this encounter
--- OUTSIDE RECORDS SUMMARY | 2023-10-15 01:21 | XMS_ITS | Encounter Summary ---
Author Organization [facility] [place] [address] Care Team Providers Care Warehouse Team Member Name Role Phone Unknown Primary Care Provider Unavailabl e Reason for Visit * Reason Onset Date Comments Other 06/24/2011 f/u rash Encounter Details Date Type Department Care Team (Late st Contact Info) Description 06/24/2011 Telephone [place] [phone] Leonor Paulino APRN [facility] [place] [address] Other (f/u rash) Social History Tobacco Use [...] Plan for f/u rash per Monie Paulino SEALANT MIXER: See prior notes of today: Unable to [...] for rash Apply hydrocortisone cream Call gastro executive search consultant fellow if rash flares again and/or extends over 50% of his body. Continue medications for now Call clinic Monday am for probable appointment to evaluate continuation of treatment medications. documented in this encounter Plan of Treatment Not on file documented as of this encounter Visit Diagnoses Not on filedocumented in this encounter Care Teams Warehouse Team Member Relationship Specialty Start Date End Date Unknown None PCP - General 03/02/11 09/05/20 documented as of this encounter
--- OUTSIDE RECORDS SUMMARY | 2023-10-15 01:21 | XMS_ITS | Encounter Summary ---
Author Organization [facility] [place] [address] Care Team Providers Care Insurance Compliance Analyst Name Role Phone Unknown Primary Care Provider Unavailabl e Reason for Visit * Reason Comments Follow-up Encounter Details Date Type Department Care Team (Late st Contact Info) Description 10/26/2011 10:30 AM EDT [place] [phone] Leonor Paulino APRN [facility] DR GASTROENTEROLOGY DEPT. [place] [phone] Hepatitis c, chronic (Primary Dx) Discharge Disposition: [...] coma documented in this encounter Care Teams Insurance Compliance Analyst Relationship Specialty Start Date End Date Unknown None PCP - General 03/02/11 09/05/20 documented as of this encounter
--- OUTSIDE RECORDS SUMMARY | 2023-10-15 01:21 | XMS_ITS | Encounter Summary ---
Author Organization [facility] [place] [address] Care Team Providers Care Cylinder Die Machine Helper Name Role Phone Unknown Primary Care Provider Unavailabl e Encounter Details Date Type Department Care Team (Late st Contact Info) Description 11/01/2011 Telephone [place] [phone] Annie Monge RN Social History [...] 10:26 AM EDT Fax received from patient's belt lacer's office requesting last office note be faxed to them for patient's hearing this morning. They faxed a notarized release of information signed by the patient, as well as a [facility] release form signed by patient. Last office note was then faxed to the belt lacer's office as requested. [employer] Andrade in [place], [place]. phone [phone], fax [phone]. Release forms were sent to Medical Records for scanning. documented in this encounter Plan of Treatment Not on file documented as of this encounter Visit Diagnoses Not on filedocumented in this encounter Care Teams Cylinder Die Machine Helper Relationship Specialty Start Date End Date Unknown None PCP - General 03/02/11 09/05/20 documented as of this encounter
--- OUTSIDE RECORDS SUMMARY | 2023-10-15 01:21 | XMS_ITS | Encounter Summary ---
Author Organization [facility] Address One [facility] [place] [address] Care Team Providers Care Channel Turner Name Role Phone None Primary Care Provider Unavailabl e Reason for Referral * Diagnostic Test (Routine) - Closed Specialty Diagnoses / Procedures Referred By Contac t Referred To Contact Diagnoses Leg edema, right Right leg pain Procedures Vascular Imaging Venous Lower Extremity Unilateral Davey Green PA [address] [place] [address] [facility] [address] [place] [address] Referral ID Status Reason Start Date Expiration Date V isits Requested Visits Authorized [id number] Closed Specialty Service Requested 10/15/2020 04/14/2022 1 1 Reason for Visit * Diagnostic Test (Routine) - Closed Specialty Diagnoses / Procedures Referred By Contac t Referred To Contact Diagnoses Leg edema, right Right leg pain Procedures Vascular Imaging Venous Lower Extremity Unilateral Davey Green PA [address] [place] [address] [facility] [address] [place] [address] Referral ID Status Reason Start Date Expiration Date V isits Requested Visits Authorized [id number] Closed Specialty Service Requested 10/15/2020 04/14/2022 1 1 Encounter Details Date Type Department Care Team (Latest Contact Info) Description 10/19/2020 3:00 PM EDT - 10/19/2020 11:59 PM EDT Hospital Encounter Ultrasound at [place] [address] [place] [address] Brian Sanchez MD [address] [place] [address] [place] [address] Leg edema, right; Right leg pain Discharge [...] who have questions please contact the health intensive care ambulance paramedic that requested your imaging first. ? Electronically signed by: BRIAN SANCHEZ MD, [facility] ([phone]), at 10/19/2020 4:09 PM Narrative 10/19/2020 4:09 [...] patients who have questions please contactthe health intensive care ambulance paramedic that requested your imaging first. Electronically signed by: BRIAN SANCHEZ MD, [facility] ([phone]), at 10/19/2020 4:09 PM Brian Sanchez MD IMG AFFIL VASCULAR O RDERABLES * SCAN DOC: VASCULAR STUDY (10/19/2020 12:00 AM EDT) Anatomical Region Laterality Modality VASC Unknown MEDIA MGR SCAN EXT O RDR/RSLT documented in this encounter Visit Diagnoses Diagnosis Leg edema, right Edema Right leg pain Pain in limb documented in this encounter Care Teams Channel Turner Relationship Specialty Start Date End Date None None PCP - General 09/06/20 04/18/22 documented as of this encounter
--- OUTSIDE RECORDS SUMMARY | 2023-10-15 01:21 | XMS_ITS | Encounter Summary ---
Author Organization [facility] [place] [address] Care Team Providers Care Butadiene Converter Helper Name Role Phone Unknown Primary Care Provider Unavailabl e Encounter Details Date Type Department Care Team (Late st Contact Info) Description 06/24/2011 Telephone [place] [phone] Leonor Paulino APRN [facility] [place] [address] Social History Tobacco Use Types Packs/Day Years [...] on filedocumented in this encounter Care Teams Butadiene Converter Helper Relationship Specialty Start Date End Date Unknown None PCP - General 03/02/11 09/05/20 documented as of this encounter
--- OUTSIDE RECORDS SUMMARY | 2023-10-15 01:21 | XMS_ITS | Encounter Summary ---
Author Organization [facility] [place] [address] Care Team Providers Care Diamond Cleaver Name Role Phone Unknown Primary Care Provider Unavailabl e Reason for Visit * Reason Onset Date Comments Other 06/24/2011 rash Encounter Details Date Type Department Care Team (Late st Contact Info) Description 06/24/2011 Telephone Gastroenterology at [facility] [address] [place] [phone] Leonor Paulino APRN [facility] DR [place]STRO[place] [address] Other (rash) Social History Tobacco Use Types [...] our call as well. I have updated COMMUNITY LIAISON: Kal. documented in this encounter Plan of Treatment Not on file documented as of this encounter Visit Diagnoses Not on filedocumented in this encounter Care Teams Diamond Cleaver Relationship Specialty Start Date End Date Unknown None PCP - General 03/02/11 09/05/20 documented as of this encounter
--- OUTSIDE RECORDS SUMMARY | 2023-10-15 01:21 | XMS_ITS | Encounter Summary ---
Author Organization [facility] [place] [address] Care Team Providers Care Drafter Geophysical Name Role Phone Unknown Primary Care Provider Unavailabl e Encounter Details Date Type Department Care Team (Late st Contact Info) Description 06/08/2012 [place] [phone] Chaya Mckeon PA [address] [place] [address] Social History Tobacco Use Types Packs/Day Years [...] ??RAD 8166 - ARTHRO MAJOR JT RIGHT ?[id number] DIAGNOSIS: ?RT SHOULDER INJURT, PAIN REASON: ? [...] RAD 8166 - ARTHRO MAJOR JT RIGHT [id number] DIAGNOSIS: RT SHOULDER INJURT, PAIN REASON: RT [...] on filedocumented in this encounter Care Teams Drafter Geophysical Relationship Specialty Start Date End Date Unknown None PCP - General 03/02/11 09/05/20 documented as of this encounter
--- OUTSIDE RECORDS SUMMARY | 2023-10-15 01:21 | XMS_ITS | Encounter Summary ---
Author Organization [facility] [place] [address] Care Team Providers Care Marketing Services Vice President Name Role Phone Unknown Primary Care Provider Unavailabl e Reason for Visit * Reason Comments Hepatitis C Encounter Details Date Type Department Care Team (Late st Contact Info) Description 08/31/2011 3:00 PM EDT [place] [phone] Leonor Paulino APRN [facility] DR [place] [address] Hepatitis c, chronic (Primary Dx) Discharge Disposition: [...] to ER and then was referred to dairy nutrition specialist. The orthopedic surgeon advised that the [...] coma documented in this encounter Care Teams Marketing Services Vice President Relationship Specialty Start Date End Date Unknown None PCP - General 03/02/11 09/05/20 documented as of this encounter
--- OUTSIDE RECORDS SUMMARY | 2023-10-15 01:21 | XMS_ITS | Encounter Summary ---
Author Organization [facility] [place] [address] Care Team Providers Care Client Service And Consulting Manager Name Role Phone Unknown Primary Care Provider Unavailabl e Encounter Details Date Type Department Care Team (Late st Contact Info) Description 08/22/2012 Abstract [facility] Information Services [address] [facility] [place] [phone] Provider, His [place] MD Social History Tobacco [...] LAB RESULT CONVERSION Comment: Sourced from [facility] [place] Conversion Basophil % 1.0(Exter nal Lab) 0.0 - 2.0 percent [facility] LAB RESULT CONVERSION Comment: Sourced from [facility] [place] Conversion Eosinophils Abs 0.26(Exte rnal Lab) 0.0 - 0.8 THOUS [facility] RESULT CONVERSION Comment: Sourced from [facility] [place] Conversion Eos % 4.2(Exter nal Lab) 0.0 - 7.0 percent [facility] RESULT CONVERSION Comment: Sourced from [facility] [place] Conversion Hematocrit 46.4(Exte rnal Lab) 42.0 - 52.0 percent [facility] RESULT CONVERSION Comment: Sourced from [facility] [place] Conversion Hemoglobin 16.3(Exte rnal Lab) 14.0 - 18.0 g/dl [facility] RESULT CONVERSION Comment: Sourced from [facility] [place] Conversion White Blood Cell 6.03(Exte rnal Lab) 4.8 - 10.8 THOUS [facility] LAB RESULT CONVERSION Comment: Sourced from [facility] [place] Conversion Large Unstained Cells ABS Count 0.07(Exte rnal Lab) 0.00 - 0.40 THOUS [facility] RESULT CONVERSION Comment: Sourced from [facility] [place] Conversion Large Unstained Cells % 1.2(Exter nal Lab) 0.0 - 4.0 percent [facility] RESULT CONVERSION Comment: Sourced from [facility] [place] Conversion Lymphocytes Abs 2.11(Exte rnal Lab) 0.90 - 5.20 THOUS [facility] RESULT CONVERSION Comment: Sourced from [facility] [place] Conversion Lymph % 34.9(Exte rnal Lab) 19.0 - 48.0 percent [facility] RESULT CONVERSION Comment: Sourced from [facility] [place] Conversion Mean Cell Hemoglobin 32.9(EXTE RNAL/ABN) 27 - 31 pg [facility] RESULT CONVERSION Comment: Sourced from [facility] [place] Conversion Mean Cell Hemoglobin Concentration 35.1(Exte rnal Lab) 33 - 37 g/dl [facility] RESULT CONVERSION Comment: Sourced from [facility] [place] Conversion Mean Cell Volume 93.8(Exte rnal Lab) 80 - 94 FL [facility] RESULT CONVERSION Comment: Sourced from [facility] [place] Conversion Monocyte Abs 0.27(Exte rnal Lab) 0.16 - 1.00 THOUS [facility] LAB RESULT CONVERSION Comment: Sourced from [facility] [place] Conversion Monocyte % 4.5(Exter nal Lab) 3.4 - 9.0 percent [facility] RESULT CONVERSION Comment: Sourced from [facility] [place] Conversion Mean Platelet Volume 7.4(Exter nal Lab) 7.2 - 11.1 FL [facility] LAB RESULT CONVERSION Comment: Sourced from [facility] [place] Conversion Neutrophil Absolute (ANC) - Automated 3.27(Exte rnal Lab) 1.90 - 8.00 THOUS [facility] RESULT CONVERSION Comment: Sourced from [facility] [place] Conversion Neutrophil % 54.2(Exte rnal Lab) 40.0 - 74.0 percent [facility] RESULT CONVERSION Comment: Sourced from [facility] [place] Conversion Platelet 151(Exter nal Lab) 130 - 400 THOUS [facility] RESULT CONVERSION Comment: Sourced from [facility] [place] Conversion Red Blood Cell 4.95(Exte rnal Lab) 4.7 - 6.1 MILLIONS [facility] RESULT CONVERSION Comment: Sourced from [facility] [place] Conversion RDW coefficient of variation 12.4(Exte rnal Lab) 11.5 - 14.5 percent [facility] RESULT CONVERSION Comment: Sourced from [facility] [place] Conversion 08/22/2012 6:00 AM EDT His [place] Provider HEMATOLOGY ORDERAB LES [facility] RESULT CONVERSION documented in this encounter Visit Diagnoses Not on filedocumented in this encounter Care Teams Client Service And Consulting Manager Relationship Specialty Start Date End Date Unknown None PCP - General 03/02/11 09/05/20 documented as of this encounter
--- OUTSIDE RECORDS SUMMARY | 2023-10-15 01:21 | XMS_ITS | Encounter Summary ---
Author Organization [facility] Address One [facility] [place] [address] Care Team Providers Care Fur Farmer Name Role Phone Unknown Primary Care Provider Unavailabl e Encounter Details Date Type Department Care Team (Late st Contact Info) Description 04/20/2012 2:00 PM EDT Office Visit [address] [phone] Chaya Mckeon PA [address] [place] [address] [place] [address] Social History Tobacco Use Types Packs/Day Years Used Date Smoking Tobacco: Never Assessed Sex and Gender Information Value Date Recorded Sex Assigned at Not on file Gender Identity Not on file Sexual Orientation Not on file documented as of this encounter Plan of Treatment Not on file documented as of this encounter Visit Diagnoses Not on filedocumented in this encounter Care Teams Fur Farmer Relationship Specialty Start Date End Date Unknown None PCP - General 03/02/11 09/05/20 documented as of this encounter
--- OUTSIDE RECORDS SUMMARY | 2023-10-15 01:21 | XMS_ITS | Encounter Summary ---
Author Organization [facility] Address One [facility] [place] [address] Care Team Providers Care Blocker Heated Metal Forms Name Role Phone None Primary Care Provider Unavailabl e Encounter Details Date Type Department Care Team (Latest Contact Info) Description 10/04/2020 10:59 AM EDT - 10/04/2020 11:59 PM EDT Hospital Encounter Lab at [address] [phone] Discharge Disposition: Home Social History Tobacco Use [...] AM EDT) Green Hold Sample in lab. [facility] Blood No Charge / Unknown 10/04/2020 9:45 AM EDT 10/04/2020 11:01 AM EDT Davey BUTTS CHEMISTRY ORDERABLES Performing Organization Address [facility] Co de Phone Number [facility] [address] [place] [address] * D-Dimer, Quantitative (10/04/2020 9:45 AM EDT) Pathologist [facility] D-Dimer 241 0 - 500 FEU ng/ml [facility] Comment: The D-Dimer assay is [...] BUTTS HEMATOLOGY ORDERABLE S Performing Organization Address City/[facility]/ZIP Co de Phone Number [facility] [address] [place] [phone] * pro-Brain Natriuretic Peptide (10/04/2020 9:45 AM EDT) NT-proBNP 18 <=124 pg/mL [facility] Blood Venous Draw / Unknown 10/04/2020 9:45 AM EDT 10/04/2020 11:00 AM EDT Narrative Resulting Agency Comment Spec In Lab Davey BUTTS CHEMISTRY ORDERABLES [facility] [address] [place] [address] * Basic Metabolic Panel (non-fasting) (10/04/2020 9:45 AM EDT) Glucose 88 65 - 199 mg/dL [facility] Comment:Diabetes: >=200 mg/d L plus symptoms Blood Urea Nitrogen 17 10 - 20 mg/dL [facility] Creatinine 0.83 0.80 - 1.50 mg/dL [facility] Sodium 140 135 - 145 mmol/L [facility] Potassium 4.7 3.5 - 5.0 mmol/L [facility] Comment: Please note: ??Patients with WBC >100,000 may have falsely elevated Potassium levels. ??For accurate Potassium quantification in these patients send serum separator tube (gold top) for subsequent determinations. ??Contact the Clinical Chemistry Laboratory if there are any questions. Chloride 103 98 - 107 mmol/L [facility] Carbon Dioxide 28 22 - 31 mmol/L [facility] Anion Gap 9 5 - 15 mmol/L [facility] Calcium 9.6 8.5 - 10.5 mg/dL [facility] Est Glomerular Filtration Rate 103 >=60 mL/min/1. 73 m?? [facility] Comment: This patient? s estimated [...] Spec In Lab Davey BUTTS CHEMISTRY ORDERABLES [facility] [address] [place] [address] documented in this encounter Visit Diagnoses Not on filedocumented in this encounter Care Teams Blocker Heated Metal Forms Relationship Specialty Start Date End Date None None PCP - General 09/06/20 04/18/22 documented as of this encounter
--- OUTSIDE RECORDS SUMMARY | 2023-10-15 01:21 | XMS_ITS | Encounter Summary ---
Author Organization [facility] [place] [address] Care Team Providers Care Bridge/Structure Inspection Team Leader Name Role Phone Unknown Primary Care Provider Unavailabl e Reason for Visit * Reason Onset Date Comments Results 03/09/2011 Encounter Details Date Type Department Care Team (Late st Contact Info) Description 03/09/2011 Telephone Gastroenterology at [facility] [place] [address] [place] [phone] Leonor Paulino APRN [facility] [place] [address] Results Social History Tobacco Use Types Packs/Day [...] on filedocumented in this encounter Care Teams Bridge/Structure Inspection Team Leader Relationship Specialty Start Date End Date Unknown None PCP - General 03/02/11 09/05/20 documented as of this encounter
--- OUTSIDE RECORDS SUMMARY | 2023-10-15 01:21 | XMS_ITS | Encounter Summary ---
Author Organization [facility] [place] [address] Care Team Providers Care Barrel Bridge Assembler Name Role Phone Unknown Primary Care Provider Unavailabl e Encounter Details Date Type Department Care Team (Late st Contact Info) Description 04/20/2012 [place] [phone] Chaya Mckeon PA [address] [place] [address] Social History Tobacco Use Types Packs/Day Years [...] Report EXAMINATION: ??[facility] 4000 - SHOULDER (COMPLETE) ?00357 ??- RIGHT DIAGNOSIS: ?[facility] JOINT PAIN-SHOULDER REASON: [...] External Results Sarwat Bush Final Report EXAMINATION: [facility] 4000 - SHOULDER (COMPLETE) [address]59 - RIGHT DIAGNOSIS: [facility] JOINT PAIN-SHOULDER REASON: 719.41 IN MENS DRESSING [...] on filedocumented in this encounter Care Teams Barrel Bridge Assembler Relationship Specialty Start Date End Date Unknown None PCP - General 03/02/11 09/05/20 documented as of this encounter
--- OUTSIDE RECORDS SUMMARY | 2023-10-15 01:21 | XMS_ITS | Encounter Summary ---
Author Organization [facility] [place] [address] Care Team Providers Care Transition Of Care Specialist Name Role Phone Unknown Primary Care Provider Unavailabl e Reason for Visit * Reason Comments Follow-up Encounter Details Date Type Department Care Team (Late st Contact Info) Description 07/25/2011 9:30 AM EDT [place] [phone] Leonor Paulino MODERATE NEEDS TEACHER [facility] [place] [address] Hepatitis c, chronic (Primary Dx) Discharge Disposition: [...] to ER and then was referred to victims advocate clerk/specialist. The orthopedic surgeon advised that the frx [...] office. He has a f/u with the victims advocate clerk/specialist in next few weeks for thumb and [...] coma documented in this encounter Care Teams Transition Of Care Specialist Relationship Specialty Start Date End Date Unknown None PCP - General 03/02/11 09/05/20 documented as of this encounter
--- OUTSIDE RECORDS SUMMARY | 2023-10-15 01:21 | XMS_ITS | Encounter Summary ---
Author Organization Replaced By [facility] One [facility] [place] [address] Care Team Providers Care Service Bar Cashier Name Role Phone Unknown Primary Care Provider Unavailabl e Encounter Details Date Type Department Care Team (Late st Contact Info) Description 04/20/2012 Abstract [facility] Information Services [address] [phone] Provider, His MD [place] Social History Tobacco [...] on filedocumented in this encounter Care Teams Service Bar Cashier Relationship Specialty Start Date End Date Unknown None PCP - General 03/02/11 09/05/20 documented as of this encounter
--- OUTSIDE RECORDS SUMMARY | 2023-10-15 01:21 | XMS_ITS | Encounter Summary ---
Author Organization [facility] [place] [address] Care Team Providers Care Card Brusher Name Role Phone Unknown Primary Care Provider Unavailabl e Reason for Visit * Reason Onset Date Comments Prior Authorization 05/13/2011 Hep C Encounter Details Date Type Department Care Team (Late st Contact Info) Description 05/13/2011 Telephone Gastroenterology at [facility] [place] [address] Chandrika Parnell placement manager (Hep C) Social History Tobacco Use [...] on filedocumented in this encounter Care Teams Card Brusher Relationship Specialty Start Date End Date Unknown None PCP - General 03/02/11 09/05/20 documented as of this encounter
--- OUTSIDE RECORDS SUMMARY | 2023-10-15 01:21 | XMS_ITS | Encounter Summary ---
Author Organization [facility] Address One [facility] [place] [address] Care Team Providers Care Appliance Servicer Name Role Phone None Primary Care Provider Unavailabl e Encounter Details Date Type Department Care Team (Latest Contact Info) Description 10/19/2020 2:45 PM EDT - 10/19/2020 2:59 PM EDT Hospital Encounter XRay at [address] [phone] Brian Cooper MD [address] [place] [address] [place]ST[place] [address] Left knee pain, unspecified chronicity [...] who have questions please contact the health dog day care attendant that requested your imaging first. ? Electronically signed by: LEVI BARTON MD, [facility] ([phone]), at 10/20/2020 7:40 AM Narrative 10/20/2020 7:40 [...] patients who have questions please contactthe health dog day care attendant that requested your imaging first. Electronically signed by: LEVI BARTON MD, [facility]([phone]), at 10/20/2020 7:40 AM Brian Cooper MD IMG DX ORDERABLES documented in this encounter Visit Diagnoses Diagnosis Left knee pain, unspecified chronicity documented in this encounter Care Teams Appliance Servicer Relationship Specialty Start Date End Date None None PCP - General 09/06/20 04/18/22 documented as of this encounter
--- NOTE | 2023-10-15 01:22 | W.ED.GENAD ---
Discharge Plan Disposition Patient Disposition: Home Condition: Stable Discharge Details Clinical Impression: Bilateral leg cramps, Hypokalemia Primary Care Provider: Jef Balderas ED Provider: Justin Giron Meds and New Rx's Prescriptions: Continued (DME) Aerochamber Plus Flow-Vu,S Msk 1 EACH spacer 1 ea Miscellaneous QID Rx Instructions: WITH LARGE MASK meloxicam 7.5 mg tablet See Rx Instructions PO DAILY Rx Instructions: dose unverified acetaminophen [Tylenol] 325 mg capsule See Rx Instructions PO ONCE PRN Rx Instructions: orally once PRN; buprenorphine-naloxone [Suboxone] 12-3 mg film 2 film sublingual DAILY Patient Comments: PLACE TWO FILMS UNDER THE TONGUE EVERY DAY FOR 7 DAYS gabapentin 600 mg tablet 600 mg PO TID Qty: 42 0RF ziprasidone HCl 20 mg capsule 20 mg PO DAILY Qty: 14 0RF Rx Instructions: give with food (meal/snack) docusate sodium [Colace] 100 mg capsule 100 mg PO PRN PRNQty: 14 0RF Rx Instructions: 100 mg orally ; atomoxetine 10 mg capsule 10 mg PO DAILY Qty: 14 0RF Rx Instructions: 10 mg orally ; dose unverified; bupropion HCl 300 mg tablet extended release 24 hr 300 mg PO DAILY Qty: 14 0RF duloxetine 20 mg capsule,delayed release(DR/EC) 20 mg PO DAILY Qty: 14 0RF Discharge Instructions Instructions: Muscle Spasm ED Additional Instructions: You were seen for lower extremity muscle cramps. Your laboratory studies tonight showed potassium to be a little bit low which we have replaced. You should be trying to keep your legs elevated given the amount of swelling in them. It is important that you follow-up with primary care as previously instructed. Return to ED for fever, chest pain, shortness of breath, other concerns. Referrals: Jef Balderas [Primary Care Provider] - HPI General Mode of arrival: EMS. Date/Time Provider Initiated Documentation: 10/15/23 01:09. Limitations to Documentation: no limitations. Information obtained by: patient, RN notes reviewed and old records reviewed. HPI Narrative: Patient presents to ED complaining that he is having bilateral lower extremity charley horses. Symptoms he reports began tonight. He is having spasms and pain and cannot walk because of the pain. He denies any injury. He denies any chest pain, shortness of breath, or abdominal pain. He repeatedly dozes off and falls asleep during interview with both myself and nursing staff. This will be his fourth visit to the ED since 26 September. He was last here on 09 October. His complaints are always similar with complaint of pain and swelling in his legs and hands. He does have a substance abuse history as well as psychiatric history. Related Data Home Medications ?Medication ?Instructions ?Recorded ?Confirmed inhalational spacing device 09/12/12 09/30/23 (Aerochamber Plus Flow-Vu,Small Mask) buprenorphine 12 mg-naloxone 3 mg 2 film sublingual DAILY 09/22/22 10/15/23 sublingual film (Suboxone) acetaminophen 325 mg capsule See Rx Instructions PO ONCE PRN 07/05/23 10/15/23 (Tylenol) meloxicam 7.5 mg tablet See Rx Instructions PO DAILY 07/05/23 10/15/23 atomoxetine 10 mg capsule 10 mg PO DAILY #14 caps 10/10/23 10/15/23 bupropion HCl 300 mg 24 hr tablet, 300 mg PO DAILY #14 tabs 10/10/23 10/15/23 extended release docusate sodium 100 mg capsule 100 mg PO PRN PRN #14 caps 10/10/23 10/15/23 (Colace) duloxetine 20 mg capsule,delayed 20 mg PO DAILY #14 caps 10/10/23 10/15/23 release gabapentin 600 mg tablet 600 mg PO TID #42 tabs 10/10/23 10/15/23 ziprasidone HCl 20 mg capsule 20 mg PO DAILY #14 caps 10/10/23 10/15/23 Previous Rx's ?Medication ?Instructions ?Recorded atomoxetine 10 mg capsule 10 mg PO DAILY #14 caps 10/10/23 bupropion HCl 300 mg 24 hr tablet, 300 mg PO DAILY #14 tabs 10/10/23 extended release docusate sodium 100 mg capsule 100 mg PO PRN PRN #14 caps 10/10/23 (Colace) duloxetine 20 mg capsule,delayed 20 mg PO DAILY #14 caps 10/10/23 release gabapentin 600 mg tablet 600 mg PO TID #42 tabs 10/10/23 ziprasidone HCl 20 mg capsule 20 mg PO DAILY #14 caps 10/10/23 Allergies Allergy/AdvReac Type Severity Reaction Status Date / Time onion Allergy Intermediate Hives Verified 10/10/23 13:19 naproxen Allergy Mild Unknown Verified 10/10/23 13:19 Sulfa (Sulfonamide Allergy Unknown Unknown Verified 10/10/23 13:19 Antibiotics) General Stated Complaint: GenMedical CHUYITA: 3 Review of Systems Narrative: Per HPI Exam Narrative Exam Narrative: Const: Obese male in NAD. VS per triage. HEENT: NC/AT. Normal facial exam. Neck: Supple. Trachea midline. Lungs: Normal respiratory effort. Lungs are clear. Cor: RRR without murmur. Good radial pulses. GI: Soft/ND/NT. Neuro: Repeatedly dozes off during interview. Speech is clear. Cranial nerves II - XII grossly intact. No gross motor or sensory deficit. Ext: No C/C. Bilateral lower extremity edema right greater than left. Bilateral hand edema. No warmth or erythema of the lower extremities. DP pulses intact. No tenderness elicited in the lower extremities. Course Vital Signs Vital signs: Vital Signs Temperature 98.9 F 10/15/23 01:15 Pulse 89 10/15/23 01:15 Respiratory Rate 16 10/15/23 01:15 Blood Pressure 124/99 H 10/15/23 01:15 Pulse Oximetry 98 10/15/23 01:15 Temperature 98.9 F 10/15/23 01:17 Temperature Source Temporal Artery Scan 10/15/23 01:17 Pulse 89 10/15/23 01:17 Respiratory Rate 146 H 10/15/23 01:17 Respiratory Effort Normal, Non-Labored 10/15/23 01:17 Respiratory Depth Normal 10/15/23 01:17 Respiratory Pattern Normal 10/15/23 01:17 Blood Pressure 124/99 H 10/15/23 01:17 Blood Pressure Position Supine 10/15/23 01:17 Pulse Oximetry 98 10/15/23 01:17 Oxygen Delivery Method Room Air 10/15/23 01:17 Oxygen Flow Rate 0 10/15/23 01:15 Pain Level 10 10/15/23 01:17 Medical Decision Making Patient presenting with what he describes as charley horses and leg cramps. He does have bilateral lower extremity edema right greater than left. He has been here 3 previous times with the last visit being on the third. He has had 2 right lower extremity ultrasound which have been negative for DVT. He has no evidence of a cellulitis or infection. His abdomen is benign. His lungs are clear. He does have previous history of substance abuse. For now we will place IV and give fluids, ketorolac. Will check electrolytes and CPK. Given his recent ED workups including ultrasound, labs, x-rays, I do not feel repeat imaging is required at this time. Patient's laboratory studies with normal white count and CPK. Chemistry significant for potassium of 3.2 which will be repleted prior to discharge. BUN is a little elevated compared to creatinine suggesting some dehydration for which he has had a liter of fluid. Will plan discharge home to follow-up with primary care physician as previously instructed from past ED visits. Return precautions provided. Medical Records Medical records reviewed: Yes I reviewed the patient's medical records. Lab Data Lab results reviewed: Yes I reviewed the patient's lab results. 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 -hb Psychosis (Acute) 06/08/2022. [facility] ED Paranoid (Acute) IV drug abuse (Chronic) Herniated disc (Acute) Low back pain (Acute) Medication side effects (Acute) Screening for hyperlipidemia (Acute) Elevated liver enzymes (Acute) Medical History Bipolar disorder Hepatitis C s/p treatment with interferon Paranoid ideation ADHD Depression Anxiety Surgical History Presence of surgical screw in left hand History of surgery on arm S/P right rotator cuff repair Family History Mother Heart disease Father Diabetes Brother Diabetes Hypertension Cancer pancreatic, liver and lung Brother Diabetes Brother Diabetes Sister Cancer pancreatic cancer Social History Smoking/Tobacco Use Status: Current every day Tobacco Type: cigarettes Smoking risk assessment performed?: Yes Alcohol Intake: current Alcohol Intake frequency: a few times a week Alcohol type: beer Drug use: Daily Substance use type: marijuana Housing: homeless Do you feel safe at home: Yes Do you feel safe in your relationship?: Yes
[2023-10-15] MEDS: Ketorolac 30 MG/ML VIAL IVP (01:40)
[2023-10-15] MEDS: Lactated Ringers 1,000 ML 1000 ML IV ×2 (01:41→03:19)
[2023-10-15 01:43] LABS: Abs Immature Grans 0.02 10^3/uL (0.0-0.06); Absolute Basophil Count 0.01 10^3/uL (0.0-0.2); Absolute Eosinophil Count 0.18 10^3/uL (0.0-0.7); Absolute Lymphocyte Count 1.58 10^3/uL (1.2-3.4); Absolute Monocyte Count 0.49 10^3/uL (0.1-0.8); Absolute Neutrophil Count 4.31 10^3/uL (1.2-6.7); Basophils % 0.2 %; Eosinophils % 2.7 %; HCT 38.6 % (40.0-50.0); HGB 12.9 g/dL (13.5-17.5); Immature Grans % 0.3 %; MCH 33.3 pg (27.0-33.0); MCHC 33.4 % (32.0-36.0); MCV 100 fL (80-95); MPV 8.4 fL (8.0-11.0); Monocytes % 7.4 %; Neutrophils % 65.4 %; Platelet Count 254 10^3/uL (130-400); RBC 3.87 10^6/uL (4.36-5.78); RDW 11.9 % (11.8-14.1); RDW-SD 43.1 fL; WBC 6.59 10^3/uL (4.4-10.8)
[2023-10-15 01:58] LABS: Anion Gap 6.1 mmol/L (3-11); BUN 25 mg/dL (7-18); CO2 32.9 mmol/L (21.0-32.0); CREATININE 0.8 mg/dL (0.70-1.30); Calcium 9.3 mg/dL (8.5-10.1); Chloride 106 mmol/L (98-107); Creatine Kinase 231 U/L (39-308); Estimated GFR 106.48 (mL/min/1.73m2); Glucose 109 mg/dL (74-106); Magnesium 2.1 mg/dL (1.8-2.4); Potassium 3.2 mmol/L (3.5-5.1); Sodium 145 mmol/L (136-145)
[2023-10-15] MEDS: Potassium Chloride 20 MEQ TABCR 40 MEQ PO (02:23)
[2023-10-15] MEDS: POTASSIUM CHLORIDE 10 MEQ/100 ML BAG 100 MEQ IVINF ×2 (02:23→03:19)
== END 2023-10-15 05:15 | disposition home or self-care (01) ==
PROVIDERS: Emergency Provider Emergency Medicine; PCP Physical Therapist
DX: R25.2 Cramp and spasm (principal); M62.831 Muscle spasm of calf; E87.6 Hypokalemia
CPT/HCPCS: 80048; 82550; 96361; 96365; 96366; 96375; 99284; 83735; 85025; 99283; J1885; J3480

== ENCOUNTER 2023-11-18 10:53 | Emergency (ER) | payer MEDICAID, SELFPAY ==
[2023-11-18 10:57] VITALS: BP 163/106; PULSE 88; RESP 15; O2SAT 99
--- NOTE | 2023-11-18 11:00 | DI.RAD_ITS ---
Exam(s) XR TIB/FIB LT EXAM: XR TIB/FIB LT CLINICAL HISTORY: Crush Injury. TECHNIQUE: 2D digital imaging was performed. COMPARISON: CR,XR XR TIB/FIB RT from 09/30/2023 FINDINGS: Four views There is no evidence of fracture. Bone density normal. No osseous lesions. No radiopaque foreign b odies evident. There is some edema in the subcutaneous soft tissues. No gas within the soft tissues . IMPRESSION: No acute osseous findings in the tibia-fibula. DATA REPOSITORY: RADIATION DOSE DELIVERED:
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
[2023-11-18] MEDS: Acetaminophen 500 MG TAB 1000 MG PO (11:13)
--- OUTSIDE RECORDS SUMMARY | 2023-11-18 11:40 | XMS_ITS | Encounter Summary ---
Author Organization [facility] Address [address] [place] [address] Care Team Providers Care Data Integrity Specialist Name Role Phone Callum Samayoa DO Primary Care Provider [phone]- [phone] Encounter Details Date Type Department Care Team [...] filedocumented in this encounter Care Teams Data Integrity Specialist Relationship Specialty Start Date End Date Callum Samayoa DO [facility] [address] [place] [address] PCP - General 06/22/09 documented as of this encounter
--- OUTSIDE RECORDS SUMMARY | 2023-11-18 11:40 | XMS_ITS | Encounter Summary ---
Author Organization [facility] Address [address] [place] [address] Care Team Providers Care Bird Keeper Name Role Phone Callum Samayoa DO Primary Care Provider +1- [phone] Encounter Details Date Type Department Care Team (Late st Contact Info) Description 07/10/2021 Lab Requisition [facility] Pathology & Laboratory Medicine - [address] [address] Outr Resulting Lab, Provider Social History Tobacco [...] Qualitative Detected( A) Undetected 07/14/2021 14:00 EDT [facility] HCV RNA Quantitative 15,700(H) Undetected IU/mL 07/14/2021 14:00 EDT [facility] Blood VENOUS BLOOD / Unknown 07/10/2021 0:15 EDT 07/10/2021 21:41 EDT Narrative [facility] - 07/14/2021 14:00 EDT The quantification range of this assay is 15 IU/mL to 100,000,000 IU/mL. Testing was performed using the Ty HCV test ([employer] with the ty 6800 System. Provider Outr Resulting Lab CHEMISTRY & BLOOD GAS ORDERABLES Performing Organization Address [facility] de Phone Number [facility] [address] [place] [address] * (ABNORMAL) ACUTE HEPATITIS PROFILE (07/10/2021 0:15 EDT) Hep B Surface Ag Negative Negative 07/12/2021 13:10 EDT [facility] Hep C Antibody Reactive(A) Negative 13:10 EDT [facility] Comment: Supplemental testing for HCV RNA is ordered to rule out active HCV infection. Hepatitis A Antibody, IgM Negative Negative 07/12/2021 13:10 EDT [facility] Comment:The results of this assay can be falsely lowered due to the consumption of Biotin. Hepatitis B Core Ab, Total Negative Negative 07/12/2021 13:10 EDT [facility] Blood VENOUS BLOOD / Unknown 07/10/2021 0:15 EDT 07/10/2021 21:41 EDT Provider Outr Resulting Lab CHEMISTRY & BLOOD GAS ORDERABLES Performing Organization Address [facility] de Phone Number [facility] [address] [place] [address] documented in this encounter Visit Diagnoses Not on filedocumented in this encounter Care Teams Bird Keeper Relationship Specialty Start Date End Date Callum Samayoa DO [address] [place] [address] PCP - General 06/22/09 documented as of this encounter
--- OUTSIDE RECORDS SUMMARY | 2023-11-18 11:40 | XMS_ITS | Encounter Summary ---
Author Organization [facility] Address [address] [place] [address] Care Team Providers Care Briquette Maker Name Role Phone Callum Samayoa DO Primary Care Provider +1- [phone] Encounter Details Date Type Department Care Team (Late st Contact Info) Description 01/18/2021 Lab Requisition [facility] Pathology & Laboratory Medicine - [address] [address] Outr Resulting Lab, Provider Social History Tobacco [...] ORDERABLES [facility] [address] [place] [address] * COVID-19 TESTING (01/18/2021 11:10 EST) COVID-19 rt-PCR Result Negative Negative 01/19/2021 20:03 EST [facility] Comment: This [...] was performed using the ty SARS-CoV-2 assay ([employer] on the Ty 6800 System Performing Lab Ty [address] [facility] Lab 01/19/2021 20:03 EST [facility] Swab 01/18/2021 11:1 0 EST 01/18/2021 22:35 EST Provider Outr Resulting Lab MICROBIOLOGY - GENERAL ORDERABLES [facility] [address] [place] [address] documented in this encounter Visit Diagnoses Not on filedocumented in this encounter Care Teams Briquette Maker Relationship Specialty Start Date End Date Callum Samayoa DO [address] [place] [address] [place] [address] PCP - General 06/22/09 documented as of this encounter
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
--- OUTSIDE RECORDS SUMMARY | 2023-11-18 11:40 | XMS_ITS | Encounter Summary ---
Author Organization [facility] Address [address] [place] [address] Care Team Providers Care Senior J2Ee Developer Name Role Phone Callum Samayoa DO Primary Care Provider +1- [phone] Encounter Details Date Type Department Care Team (Late st Contact Info) Description 09/10/2019 Lab Requisition [facility] Pathology & Laboratory Medicine - [address] [address] Outr Resulting Lab, Provider Social History Tobacco [...] Lab MICROBIOLOGY - GENERAL ORDERABLES [facility] [address] [place] [address] * COVID-19 TESTING (09/10/2019 12:00 EDT) COVID-19 rt-PCR Result Negative Negative 09/10/2019 21:57 EDT [facility] Comment: This test [...] history, and epidemiological information. Performed on the [employer] Fusion instrument Performing Lab [place] [facility] Lab 09/10/2019 21:57 EDT [facility] Swab 09/10/2019 12:0 0 EDT 09/10/2019 15:30 EDT Provider Outr Resulting Lab MICROBIOLOGY - GENERAL ORDERABLES [facility] [address] [place] [address] documented in this encounter Visit Diagnoses Not on filedocumented in this encounter Care Teams Senior J2Ee Developer Relationship Specialty Start Date End Date Callum Samayoa DO [address] [place] [id number] PCP - General 06/22/09 documented as of this encounter
--- OUTSIDE RECORDS SUMMARY | 2023-11-18 11:40 | XMS_ITS | Clinical Summary ---
Author Organization [facility] Address [address] [place] [address] Care Team Providers Care Box Repairer Name Role Phone Callum Samayoa DO Primary Care Provider +1- [phone] Allergies Active Allergy Reactions Criticality Noted Date Comments Other - See Comments 06/24/2009 No pain meds, narcotics or opiates Medications Medication Sig Dispensed Refills Start Date End Date Status buprenorphine-naloxone (SUBOXONE) 2-0.[address] 4 mg under the tongue daily. Active Active Problems Problem Noted Date Diagnosed Date Psychosis ([facility]) Social History Tobacco Use Types [...] 3-dose series) 08/26 COVID-19 Vaccine ( season) 2023 Hepatitis C Screen Completed 07/10/2021 Procedures Procedure Name Priority Date/Time Associated Diagnosis Comments HCV RNA DETECT QUANT Today 07/10/2021 0:15 EDT from Last 3 Months or Most Recently Relevant to Health Maintenance Results * (ABNORMAL) HCV RNA DETECT QUANT (07/10/2021 0:15 EDT) HCV RNA Qualitative Detected( A) Undetected 07/14/2021 14:00 EDT [facility] HCV RNA Quantitative 15,700(H) Undetected IU/mL 07/14/2021 14:00 EDT [facility] Blood VENOUS BLOOD / Unknown 07/10/2021 0:15 EDT 07/10/2021 21:41 EDT Narrative [facility] - 07/14/2021 14:00 EDT The quantification range of this assay is 15 IU/mL to 100,000,000 IU/mL. Testing was performed using the Ty HCV test ([employer] with the ty [id number] System. Provider Outr Resulting Lab CHEMISTRY & BLOOD GAS ORDERABLES [facility] [address] [place] [address] from Last 3 Months or Most Recently Relevant to Health Maintenance Care Teams Box Repairer Relationship Specialty Start Date End Date Callum Samayoa DO [address] [place] [address] [place] [address] PCP - General 06/22/09
--- OUTSIDE RECORDS SUMMARY | 2023-11-18 11:40 | XMS_ITS | Encounter Summary ---
Author Organization [facility] Address [address] [place] [address] Care Team Providers Care Pharmaceutical Worker Name Role Phone Callum Samayoa DO Primary Care Provider +1- [phone] Encounter Details Date Type Department Care Team (Late st Contact Info) Description 09/14/2019 Lab Requisition [facility] Pathology & Laboratory Medicine - [address] [address] Outr Resulting Lab, Provider Social History Tobacco [...] Outr Resulting Lab MICROBIOLOGY - GENERAL ORDERABLES [facility] [address] [place] [address] * COVID-19 TESTING (09/14/2019 11:52 EDT) COVID-19 rt-PCR Result Negative Negative 09/15/2019 12:04 EDT [facility] Comment: This test [...] history, and epidemiological information. Performed on the [employer] Fusion instrument Performing Lab [place] [facility] Lab 09/15/2019 12:04 EDT [facility] Swab 09/14/2019 11:5 2 EDT 09/14/2019 23:08 EDT Provider Outr Resulting Lab MICROBIOLOGY - GENERAL ORDERABLES [facility] [address] [place] [address] documented in this encounter Visit Diagnoses Not on filedocumented in this encounter Care Teams Pharmaceutical Worker Relationship Specialty Start Date End Date Callum Samayoa DO [address] [place] [address] PCP - General 06/22/09 documented as of this encounter
--- OUTSIDE RECORDS SUMMARY | 2023-11-18 11:40 | XMS_ITS | Referral Summary ---
Author Organization [facility] Address [address] [place] [address] Care Team Providers Care Pit Inspector Name Role Phone Callum Samayoa DO Primary Care Provider +1- [phone] Allergies Active Allergy Reactions Criticality Noted Date Comments Other - See Comments 06/24/2009 No pain meds, narcotics or opiates Medications Medication Sig Dispensed Refills Start Date End Date Status buprenorphine-naloxone (SUBOXONE) 2-0.[address] 4 mg under the tongue daily. Active Active Problems Problem Noted Date Diagnosed Date Psychosis ([facility]) Social History Tobacco Use Types Packs/Day Years [...] Qualitative Detected( A) Undetected 07/14/2021 14:00 EDT [facility] HCV RNA Quantitative 15,700(H) Undetected IU/mL 07/14/2021 14:00 EDT [facility] Blood VENOUS BLOOD / Unknown 07/10/2021 0:15 EDT 07/10/2021 21:41 EDT Narrative [facility] - 07/14/2021 14:00 EDT The quantification range of this assay is 15 IU/mL to 100,000,000 IU/mL. Testing was performed using the Ty HCV test ([employer] with the ty [id number] System. Provider Outr Resulting Lab CHEMISTRY & BLOOD GAS ORDERABLES [facility] [address] [place] [address] from Last 3 Months or Most Recently Relevant to Health Maintenance Care Teams Pit Inspector Relationship Specialty Start Date End Date Callum Samayoa DO [address] [place] [address] [place] [address] PCP - General 06/22/09
--- OUTSIDE RECORDS SUMMARY | 2023-11-18 11:41 | XMS_ITS | Encounter Summary ---
Author Organization [facility] [place] [address] Care Team Providers Care Natural Resources Specialist Name Role Phone Unknown Primary Care Provider Unavailabl e Encounter Details Date Type Department Care Team (Latest Contact Info) Description 03/07/2011 2:25 PM EST - 03/07/2011 11:59 PM EST Hospital Encounter Non-Invasive Cardiology Lab [facility] [address] [place] [address] CLINIC, DR CASTELLANOS Discharge Disposition: Home Social [...] Procedure Name Priority Date/Time Associated Diagnosis Comments [facility] [place] Routine 03/07/2011 1 :58 PM EST documented in this encounter Results * [facility] (03/07/2011 1:58 PM EST) [facility] ? [place] ? Expected Test ? Result [...] of other clinical factors. Test Performed by: [facility] [address] [place] [address] BENNETT MADERA Blood specimen (specimen) 03/07/2011 1:58 PM EST 03/07/2011 2:36 PM EST Leonor Paulino APRN LAB SEND OUT ORDERAB LES BENNETT MADERA documented in this encounter Visit Diagnoses Not on filedocumented in this encounter Care Teams Natural Resources Specialist Relationship Specialty Start Date End Date Unknown None PCP - General 03/02/11 09/05/20 documented as of this encounter
--- OUTSIDE RECORDS SUMMARY | 2023-11-18 11:41 | XMS_ITS | Encounter Summary ---
Author Organization [facility] [place] [address] Care Team Providers Care Keyboard Operator Name Role Phone Unknown Primary Care Provider Unavailabl e Encounter Details Date Type Department Care Team (Late st Contact Info) Description 04/20/2012 [place] [phone] Chaya Mckeon PA [address] [place] [address] Social History Tobacco Use Types Packs/Day Years [...] Report EXAMINATION: ??[facility] 4000 - SHOULDER (COMPLETE) ?21631 ??- RIGHT DIAGNOSIS: ?[facility] JOINT PAIN-SHOULDER REASON: [...] External Results Sarwat Bush Final Report EXAMINATION: [facility] 4000 - SHOULDER (COMPLETE) 61404 - RIGHT DIAGNOSIS: [facility] JOINT PAIN-SHOULDER REASON: 719.41 IN MENS [...] on filedocumented in this encounter Care Teams Keyboard Operator Relationship Specialty Start Date End Date Unknown None PCP - General 03/02/11 09/05/20 documented as of this encounter
--- OUTSIDE RECORDS SUMMARY | 2023-11-18 11:41 | XMS_ITS | Encounter Summary ---
Author Organization [facility] Address [facility] [place] [address] Care Team Providers Care Frame Polisher Name Role Phone None Primary Care Provider Unavailabl e Encounter Details Date Type Department Care Team (Late st Contact Info) Description 10/30/2020 Telephone Orthopaedics at [address] [address] Keyana Meehan LPN Social History [...] Received a call from nurse Shila at [facility]. She is asking for an appointment for [place]. He has Lt knee pain and swelling. NKI. Appointment scheduled with xrays. documented in this encounter Plan of Treatment Not on file documented as of this encounter Visit Diagnoses Not on filedocumented in this encounter Care Teams Frame Polisher Relationship Specialty Start Date End Date None None PCP - General 09/06/20 04/18/22 documented as of this encounter
--- OUTSIDE RECORDS SUMMARY | 2023-11-18 11:41 | XMS_ITS | Encounter Summary ---
Author Organization [facility] [place] [address] Care Team Providers Care Early Childhood Aide Classroom Name Role Phone Unknown Primary Care Provider Unavailabl e Encounter Details Date Type Department Care Team (Late st Contact Info) Description 06/08/2012 [place] [phone] Chaya Mckeon PA [address] [place] [address] Social History Tobacco Use Types Packs/Day Years [...] ??RAD 8166 - ARTHRO MAJOR JT RIGHT ?[id number] DIAGNOSIS: ?RT SHOULDER INJURT, PAIN REASON: ? [...] RAD 8166 - ARTHRO MAJOR JT RIGHT [id number] DIAGNOSIS: RT SHOULDER INJURT, PAIN REASON: RT [...] injection. 2. Advanced glenohumeral osteoarthritis. INTERPRETING PHYSICIAN: LVEI BARTON M.D. Jun 09 2012 4:53P TRANSCRIBED BY/DATE: SEGUN on Jun 09 2012 5:04P ELECTRONICALLY AUTHORIZED BY: LEVI BARTON M.D. Jun 12 2012 3:19P Chaya BUTTS PACS IMAGES documented in this encounter Visit Diagnoses Not on filedocumented in this encounter Care Teams Early Childhood Aide Classroom Relationship Specialty Start Date End Date Unknown None PCP - General 03/02/11 09/05/20 documented as of this encounter
--- OUTSIDE RECORDS SUMMARY | 2023-11-18 11:41 | XMS_ITS | Encounter Summary ---
Author Organization [facility] [place] [address] Care Team Providers Care Flare Breaker Name Role Phone Unknown Primary Care Provider Unavailabl e Reason for Visit * Reason Onset Date Comments Results 03/09/2011 Encounter Details Date Type Department Care Team (Late st Contact Info) Description 03/09/2011 Telephone Gastroenterology at [facility] [address] [place] [phone] Leonor Paulino APRN [facility] DR [place] [address] Results Social History Tobacco Use Types Packs/Day [...] on filedocumented in this encounter Care Teams Flare Breaker Relationship Specialty Start Date End Date Unknown None PCP - General 03/02/11 09/05/20 documented as of this encounter
--- OUTSIDE RECORDS SUMMARY | 2023-11-18 11:41 | XMS_ITS | Encounter Summary ---
Author Organization [facility] [place] [address] Care Team Providers Care Golf Starter And Ranger Name Role Phone Unknown Primary Care Provider Unavailabl e Reason for Visit * Reason Comments Hepatitis C Encounter Details Date Type Department Care Team (Late st Contact Info) Description 08/31/2011 3:00 PM EDT [place] [phone] Leonor Paulino APRN [facility] DR [place]STRO[place] [address] Hepatitis c, chronic (Primary Dx) Discharge Disposition: [...] to ER and then was referred to customer advisor specialist. The orthopedic surgeon advised that the [...] coma documented in this encounter Care Teams Golf Starter And Ranger Relationship Specialty Start Date End Date Unknown None PCP - General 03/02/11 09/05/20 documented as of this encounter
--- OUTSIDE RECORDS SUMMARY | 2023-11-18 11:41 | XMS_ITS | Encounter Summary ---
Author Organization [facility] Address [address] [place] [address] Care Team Providers Care Regional Account Executive Name Role Phone YaoCallum Primary Care Provider +1- [phone] Encounter Details Date Type Department Care Team (Late st Contact Info) Description 06/24/2009 Results Only *[facility] Gastroenterology - [place] [address] [place] [address] Jad Burt MD [address] [facility], [facility] [address] [place] [address] Social History Tobacco Use Types [...] uncomplicated transjugular liver biopsy. Jad Burt MD [facility] IR ORDERABLES * SURGICAL PATHOLOGY (06/24/2009 0:00 EDT) Pathology Report: SURGICAL PATHOLOGY REPORT ? Reports generated via electronic interface contain original data; ? however they are lacking the format of the original report. ? Caution should be taken when reading/interpreti ng unformatted reports. ? Name: ? NICK MONET ? Accession #: ? [id number] ? : ? 1970 (Age: 38) ??M [...] Gross Description: ? Received in ??formalin labelled [place], Nick and liver bx are six ?? [...] PATHOLOGY ORDER [facility] [address] [place] [address] documented in this encounter Visit Diagnoses Not on filedocumented in this encounter Care Teams Regional Account Executive Relationship Specialty Start Date End Date Callum Samayoa, DO [address] [place] [address] PCP - General 06/22/09 documented as of this encounter
--- OUTSIDE RECORDS SUMMARY | 2023-11-18 11:41 | XMS_ITS | Encounter Summary ---
Author Organization [facility] [place] [address] Care Team Providers Care Ship Pilot Name Role Phone Unknown Primary Care Provider Unavailabl e Encounter Details Date Type Department Care Team (Late st Contact Info) Description 04/20/2012 Abstract [facility] Information Services [address] [place] [phone] Provider, His MD [place] Social History Tobacco [...] 04/20/2012 2:0 0 PM EDT Sourced from [facility] Height 177.8 cm (5' 10) 04/20/2012 2:0 0 PM EDT Sourced from [facility] Body Mass Index 33 04/20/2012 2:00 PM EDT documented in this encounter Plan of Treatment Not on file documented as of this encounter Visit Diagnoses Not on filedocumented in this encounter Care Teams Ship Pilot Relationship Specialty Start Date End Date Unknown None PCP - General 03/02/11 09/05/20 documented as of this encounter
--- OUTSIDE RECORDS SUMMARY | 2023-11-18 11:41 | XMS_ITS | Encounter Summary ---
Author Organization [facility] [place] [address] Care Team Providers Care Route Manager Name Role Phone Unknown Primary Care Provider Unavailabl e Encounter Details Date Type Department Care Team (Late st Contact Info) Description 03/21/2012 Abstract [facility] Information Services [address] [facility] [place] [phone] Provider, His [place] MD Social History Tobacco [...] LAB RESULT CONVERSION Comment: Sourced from [facility] Con[facility] Basophil % 0.6(Exter nal Lab) 0.0 - 2.0 percent [facility] RESULT CONVERSION Comment: Sourced from [facility] [place] Conversion Eosinophils Abs 0.17(Exte rnal Lab) 0.0 - 0.8 THOUS [facility] RESULT CONVERSION Comment: Sourced from [facility] Conversion Eos % 3.3(Exter nal Lab) 0.0 - 7.0 percent [facility] LAB RESULT CONVERSION Comment: Sourced from [facility] [place] Conversion Hematocrit 50.8(Exte rnal Lab) 42.0 - 52.0 percent [facility] RESULT CONVERSION Comment: Sourced from [facility] [place] Conversion Hemoglobin 17.2(Exte rnal Lab) 14.0 - 18.0 g/dl [facility] RESULT CONVERSION Comment: Sourced from [facility] [place] Conversion White Blood Cell 5.29(Exte rnal Lab) 4.8 - 10.8 THOUS [facility] RESULT CONVERSION Comment: Sourced from [facility] [place] Conversion Large Unstained Cells ABS Count 0.06(Exte rnal Lab) 0.00 - 0.40 THOUS [facility] RESULT CONVERSION Comment: Sourced from [facility] Conversion Large Unstained Cells % 1.0(Exter nal Lab) 0.0 - 4.0 percent [facility] RESULT CONVERSION Comment: Sourced from [facility] [place] Conversion Lymphocytes Abs 1.24(Exte rnal Lab) 0.90 - 5.20 THOUS [facility] RESULT CONVERSION Comment: Sourced from [facility] Conversion Lymph % 23.4(Exte rnal Lab) 19.0 - 48.0 percent [facility] RESULT CONVERSION Comment: Sourced from [facility] [place] Conversion Macrocyte +(Externa l Lab) [facility] RESULT CONVERSION Comment: Sourced from [facility] Conversion Mean Cell Hemoglobin 33.7(EXTE RNAL/ABN) 27 - 31 pg [facility] RESULT CONVERSION Comment: Sourced from [facility] Conversion Mean Cell Hemoglobin Concentration 33.8(Exte rnal Lab) 33 - 37 g/dl [facility] RESULT CONVERSION Comment: Sourced from [facility] Conversion Mean Cell Volume 99.8(EXTE RNAL/ABN) 80 - 94 FL [facility] RESULT CONVERSION Comment: Sourced from [facility] Conversion Monocyte Abs 0.20(Exte rnal Lab) 0.16 - 1.00 THOUS [facility] RESULT CONVERSION Comment: Sourced from [facility] [place] Conversion Monocyte % 3.9(Exter nal Lab) 3.4 - 9.0 percent [facility] RESULT CONVERSION Comment: Sourced from [facility] [place] Conversion Mean Platelet Volume 8.9(Exter nal Lab) 7.2 - 11.1 FL [facility] RESULT CONVERSION Comment: Sourced from [facility] [place] Conversion Neutrophil Absolute (ANC) - Automated 3.59(Exte rnal Lab) 1.90 - 8.00 THOUS [facility] RESULT CONVERSION Comment: Sourced from [facility] Conversion Neutrophil % 67.9(Exte rnal Lab) 40.0 - 74.0 percent [facility] RESULT CONVERSION Comment: Sourced from [facility] [place] Conversion Platelet 153(Exter nal Lab) 130 - 400 THOUS [facility] RESULT CONVERSION Comment: Sourced from [facility] [place] Conversion Red Blood Cell 5.09(Exte rnal Lab) 4.7 - 6.1 MILLIONS [facility] RESULT CONVERSION Comment: Sourced from [facility] [place] Conversion RDW coefficient of variation 13.3(Exte rnal Lab) 11.5 - 14.5 percent [facility] RESULT CONVERSION Comment: Sourced from [facility] Conversion 03/21/2012 3:17 PM EST His [place] Provider HEMATOLOGY ORDERAB LES [facility] RESULT CONVERSION documented in this encounter Visit Diagnoses Not on filedocumented in this encounter Care Teams Route Manager Relationship Specialty Start Date End Date Unknown None PCP - General 03/02/11 09/05/20 documented as of this encounter
--- OUTSIDE RECORDS SUMMARY | 2023-11-18 11:41 | XMS_ITS | Encounter Summary ---
Author Organization [facility] [place] [address] Care Team Providers Care Set Making Machine Operator Name Role Phone Unknown Primary Care Provider Unavailabl e Reason for Visit * Reason Comments Follow-up Encounter Details Date Type Department Care Team (Late st Contact Info) Description 07/25/2011 9:30 AM EDT [place] [phone] Leonor Paulino RN [facility] [place] [address] Hepatitis c, chronic (Primary Dx) Discharge Disposition: [...] to ER and then was referred to orthopedic radiologic technologist. The orthopedic surgeon advised that the frx [...] office. He has a f/u with the orthopedic radiologic technologist in next few weeks for thumb and [...] coma documented in this encounter Care Teams Set Making Machine Operator Relationship Specialty Start Date End Date Unknown None PCP - General 03/02/11 09/05/20 documented as of this encounter
--- OUTSIDE RECORDS SUMMARY | 2023-11-18 11:41 | XMS_ITS | Encounter Summary ---
[place] [address] Care Team Providers Care Information Assurance Engineer Name Role Phone Emmanuel Ramirez DNP Primary Care Provider Encounter Details Date Type Department Care Team (Late st Contact Info) Description 07/29/2022 Telephone [facility] [place] [phone] Lacie Zamudio LNA Social History Tobacco Use [...] on filedocumented in this encounter Care Teams Information Assurance Engineer Relationship Specialty Start Date End Date Emmanuel Ramirez DNP [address] [place] [address] PCP - General Family Medicine 04/19/22 documented as of this encounter
--- OUTSIDE RECORDS SUMMARY | 2023-11-18 11:41 | XMS_ITS | Encounter Summary ---
Author Organization [facility] [place] [address] Care Team Providers Care Car Tester Name Role Phone Unknown Primary Care Provider Unavailabl e Reason for Visit * Reason Onset Date Comments Prior Authorization 05/13/2011 Hep C Encounter Details Date Type Department Care Team (Late st Contact Info) Description 05/13/2011 Telephone Gastroenterology at [facility] [place] [address] Chandrika Parnell senior java programmer (Hep C) Social History Tobacco Use Types [...] on filedocumented in this encounter Care Teams Car Tester Relationship Specialty Start Date End Date Unknown None PCP - General 03/02/11 09/05/20 documented as of this encounter
--- OUTSIDE RECORDS SUMMARY | 2023-11-18 11:41 | XMS_ITS | Clinical Summary ---
Author Organization [facility] Address One [facility] [place] [address] Care Team Providers Care Electrician Technician Name Role Phone Emmanuel Ramirez DNP Primary Care Provider Allergies No known active allergies Medications Medication Sig Dispensed Refills Start Date End Date Status methylphenidate (METADATE ER) 20 mg ER tablet Take 20 mg by mouth 2 times daily. Active omeprazole (PRILOSEC) 20 mg capsule Take 20 mg by mouth daily. Active peginterferon ornald-2a (PEGASYS) 180 mcg/mL injection Inject 1 mL [...] 04/20/2012 2:0 0 PM EDT Sourced from [facility] Height 177.8 cm (5' 10) 04/20/2012 2:0 0 PM EDT Sourced from [place] Conversion Body Mass Index 33 04/20/2012 2:00 PM EDT Plan of Treatment Health Maintenance Due Date Last Done Comments CT Colonography 1970 Colonoscopy 1971 Colorectal Cancer Screening 1970 FIT DNA 1970 FIT 1970 Sigmoidoscopy (10 year) with FIT yearly 1970 Sigmoidoscopy 1971 Lipid Screening 08/26/1989 Hepatitis B vaccine (0-59 yrs) (1) 08/26/1990 Tetanus/Diphtheria/Pertussis Vaccines (1 - Tdap) 08/26 Zoster vaccine (1 of 2) 08/26/2021 Covid-19 Vaccine (1 - 2022-24 season) 2023 Influenza (Flu) vaccine (1 o f 1 - Influenza standard series) 10/08/2023 HIV screen Completed 03/07/2011 Procedures Procedure Name Priority Date/Time Associated Diagnosis Comments HIV SCREEN, 4TH GENERATION ([facility]D/[facility]) Routine 03/07/2011 2:11 PM EST Hepatitis c, chronic from Last 3 Months or Most Recently Relevant to Health Maintenance Results * HIV (03/07/2011 2:11 PM EST) Pathologist [facility] HIV 1/2 Ab Negative [facility] Blood specimen (specimen) 03/07/2011 2:11 PM EST 03/07/2011 2:25 PM EST Zachary Wilburn MD CHEMISTRY ORDERJATINDER S BENNETT BARRENNIUM from Last 3 Months or Most Recently Relevant to Health Maintenance Care Teams Electrician Technician Relationship Specialty Start Date End Date Emmanuel Ramirez DNP [address] [place], [place] [address] PCP - General Family Medicine 04/19/22
--- OUTSIDE RECORDS SUMMARY | 2023-11-18 11:41 | XMS_ITS | Encounter Summary ---
Author Organization [facility] Address [facility] [place] [address] Care Team Providers Care Lorry Weigher Name Role Phone None Primary Care Provider Unavailabl e Reason for Referral * Diagnostic Test (Routine) - Closed Specialty Diagnoses / Procedures Referred By Contac t Referred To Contact Diagnoses Leg edema, right Right leg pain Procedures Vascular Imaging Venous Lower Extremity Unilateral Davey Green PA [address] [place] [address] [facility] [address] [place] [address] Referral ID Status Reason Start Date Expiration Date V isits Requested Visits Authorized [id number] Closed Specialty Service Requested 10/15/2020 04/14/2022 1 1 Reason for Visit * Diagnostic Test (Routine) - Closed Specialty Diagnoses / Procedures Referred By Contac t Referred To Contact Diagnoses Leg edema, right Right leg pain Procedures Vascular Imaging Venous Lower Extremity Unilateral Davey Green PA [address] [place] [address] [facility] [address] [place] [address] Referral ID Status Reason Start Date Expiration Date V isits Requested Visits Authorized [id number] Closed Specialty Service Requested 10/15/2020 04/14/2022 1 1 Encounter Details Date Type Department Care Team (Latest Contact Info) Description 10/19/2020 3:00 PM EDT - 10/19/2020 11:59 PM EDT Hospital Encounter Ultrasound at [facility] [address] [place] [address] Brian Sanchez MD [address] [place] [address] [place] [address] Leg edema, right; Right leg pain Discharge [...] who have questions please contact the health urgent care technician that requested your imaging first. ? Electronically signed by: BRIAN SANCHEZ MD, [facility] ([phone]), at 10/19/2020 4:09 PM Narrative 10/19/2020 4:09 [...] patients who have questions please contactthe health urgent care technician that requested your imaging first. Electronically signed by: BRIAN SANCHEZ MD, [facility] ([phone]), at 10/19/2020 4:09 PM Brian Sanchez MD IMG AFFIL VASCULAR O RDERABLES * SCAN DOC: VASCULAR STUDY (10/19/2020 12:00 AM EDT) Anatomical Region Laterality Modality VASC Unknown MEDIA MGR SCAN EXT O RDR/RSLT documented in this encounter Visit Diagnoses Diagnosis Leg edema, right Edema Right leg pain Pain in limb documented in this encounter Care Teams Lorry Weigher Relationship Specialty Start Date End Date None None PCP - General 09/06/20 04/18/22 documented as of this encounter
--- OUTSIDE RECORDS SUMMARY | 2023-11-18 11:41 | XMS_ITS | Encounter Summary ---
Author Organization [facility] Address [address] [place] [address] Care Team Providers Care Rafter Cutting Machine Operator Name Role Phone Nick Moreno MD Primary Care Provider +1- [phone] Encounter Details Date Type Department Care Team (Late st Contact Info) Description 06/18/2009 11:20 EDT - 06/18/2009 23:59 EDT Hospital Encounter [address] [address] Jad Burt MD [address] [place] [address], [address] [place] [phone] Discharge Disposition: Home or Self Care Social History Tobacco Use Types Packs/Day Years Used Date Smoking Tobacco: Never Assessed Sex and Gender Information Value Date Recorded Sex Assigned at Not on file Gender Identity Male 06/08/2022 11:45 EDT Sexual Orientation Not on file documented as of this encounter Discharge Disposition Disposition Code Departure Means Destination Home or Self Long-Term documented in this encounter Plan of Treatment [...] HEMATOLOGY & PF4 ORDERABLES Performing Organization Address City/[facility] Co de Phone Number [facility] [address] [place] [address] * TSH (06/18/2009 11:53 EDT) TSH 3.47 0.35 - 5.00 uIU/ml [facility] Blood specimen (specimen) 06/18/2009 11:53 EDT 06/18/2009 11:54 EDT Jad Burt MD CHEMISTRY & BLOOD GAS ORDERABLES Performing Organization Address [facility] Co de Phone Number [facility] [address] [place] [address] * (ABNORMAL) COMPREHENSIVE METABOLIC PANEL (06/18/2009 11:53 [...] & BLOOD GAS ORDERABLES Performing Organization Address City/[facility] Co de Phone Number [facility] [address] [place] [address] * PTT (06/18/2009 11:53 EDT) PTT 33 24 - 35 secs [facility] Comment: Therapeutic Heparin range: ??60-90 seconds NOTE NEW REFERENCE RANGE EFFECTIVE 2009 NOTE: ??New Therapeutic Heparin range effective 05/13/2009 Blood specimen (specimen) 06/18/2009 11:53 EDT 06/18/2009 11:54 EDT Jad Burt MD HEMATOLOGY & PF4 ORDERABLES Performing Organization Address City/[facility] Co de Phone Number [facility] [address] [place] [address] * PROTIME (06/18/2009 11:53 EDT) Pro Time [...] HEMATOLOGY & PF4 ORDERABLES Performing Organization Address City/State/[facility] Co de Phone Number [facility] [address] [place] [address] documented in this encounter Visit Diagnoses Not on filedocumented in this encounter Care Teams Rafter Cutting Machine Operator Relationship Specialty [place] [address] [place] [phone] PCP - General 06/18/09 06/21/09 documented as of this encounter
--- OUTSIDE RECORDS SUMMARY | 2023-11-18 11:41 | XMS_ITS | Encounter Summary ---
[place] [address] Care Team Providers Care Criminal Justice Department Chair Name Role Phone Emmanuel Ramirez DNP Primary Care Provider Reason for Referral * Consultation (Routine) - Denied Specialty Diagnoses / Procedures Referred By Lexa henson Referred To Contact [facility] Diagnoses Low back pain, unspecified back pain laterality, unspecified chronicity, unspecified whether sciatica present Review with MED SPECIALIST Emmanuel Ramirez DNP [facility] [place] [address] [facility] [place] [address] Referral ID Status Reason Start Date Expiration Date V isits Requested Visits Authorized [id number] Denied Consult, Test & Treat PCP Updated and/or Approved 04/19/2022 04/19/2023 1 0 Encounter Details Date Type Department Care Team (Late st Contact Info) Description 04/19/2022 Transcribe Orders eDH Incoming Referrals [phone] Emmanuel Ramirez DNP [address] [employer] [place], [place] [phone] Low back pain, unspecified back pain laterality, [...] present documented in this encounter Care Teams Criminal Justice Department Chair Relationship Specialty Start Date End Date Emmanuel Ramirez DNP [address] [place] [address] PCP - General Family Medicine 04/19/22 documented as of this encounter
--- OUTSIDE RECORDS SUMMARY | 2023-11-18 11:41 | XMS_ITS | Encounter Summary ---
Author Organization [facility] [place] [address] Care Team Providers Care It Service Technician Name Role Phone Emmanuel Ramirez DNP Primary Care Provider Encounter Details Date Type Department Care Team (Late st Contact Info) Description 07/29/2022 Telephone [facility] [place] [phone] Lacie Zamudio LNA Social History Tobacco Use [...] on filedocumented in this encounter Care Teams It Service Technician Relationship Specialty Start Date End Date Emmanuel Ramirez DNP [address] [place] [address] PCP - General Family Medicine 04/19/22 documented as of this encounter
--- OUTSIDE RECORDS SUMMARY | 2023-11-18 11:41 | XMS_ITS | Encounter Summary ---
Author Organization [facility] [place] [address] Care Team Providers Care Shingle Inspector Name Role Phone Unknown Primary Care Provider Unavailabl e Encounter Details Date Type Department Care Team (Late st Contact Info) Description 04/20/2012 1:30 PM EDT Procedure visit [address] [phone] Radiology, Rachelle Social History Tobacco Use Types [...] on filedocumented in this encounter Care Teams Shingle Inspector Relationship Specialty Start Date End Date Unknown None PCP - General 03/02/11 09/05/20 documented as of this encounter
--- OUTSIDE RECORDS SUMMARY | 2023-11-18 11:41 | XMS_ITS | Encounter Summary ---
Author Organization [facility] [place] [address] Care Team Providers Care Computer Field Technician Name Role Phone Emmanuel Ramirez DNP Primary Care Provider Encounter Details Date Type Department Care Team (Late st Contact Info) Description 07/07/2022 Ancillary Procedure Radiology Library at [facility] [place] [address] Emmanuel Ramirez DNP [address] [place], [place] [phone] Social History Tobacco Use Types Packs/Day Years [...] MR Spine (07/07/2022 12:00 AM EDT) Narrative [facility] - 07/13/2022 4:54 AM EDT This exam is auto-finalizing. It's purpose is for storage only. Emmanuel Ramirez DNP IMG FILM LIBRARY OR DERABLES [facility] [place] documented in this encounter Visit Diagnoses Not on filedocumented in this encounter Care Teams Computer Field Technician Relationship Specialty Start Date End Date Emmanuel Ramirez DNP [address] [place] [address] PCP - General Family Medicine 04/19/22 documented as of this encounter
--- OUTSIDE RECORDS SUMMARY | 2023-11-18 11:41 | XMS_ITS | Encounter Summary ---
Author Organization [facility] Address One [facility] [place] [address] Care Team Providers Care Service Developer Name Role Phone None Primary Care Provider Unavailabl e Encounter Details Date Type Department Care Team (Latest Contact Info) Description 11/06/2020 8:30 AM EDT - 11/06/2020 11:59 PM EDT Hospital Encounter XRay at [address] [phone] Claudio Marques MD [address] [place] [address] [place] [address] Left knee pain, unspecified chronicity Discharge Disposition: [...] who have questions please contact the health behavioral health care coordinator that requested your imaging first. ? Electronically signed by: UNRULY SINHA MD, [facility] ([phone]), at 11/06/2020 10:59 AM Narrative 11/06/2020 10:59 [...] patients who have questions please contactthe health behavioral health care coordinator that requested your imaging first. Electronically signed by: UNRULY SINHA MD, [facility] ([phone]), at 11/06/2020 10:59 AM Claudio Marques MD IMG DX ORDERABLES documented in this encounter Visit Diagnoses Diagnosis Left knee pain, unspecified chronicity documented in this encounter Care Teams Service Developer Relationship Specialty Start Date End Date None None PCP - General 09/06/20 04/18/22 documented as of this encounter
--- OUTSIDE RECORDS SUMMARY | 2023-11-18 11:41 | XMS_ITS | Encounter Summary ---
Author Organization [facility] [place] [address] Care Team Providers Care Wheel And Axle Inspector Name Role Phone Unknown Primary Care Provider Unavailabl e Encounter Details Date Type Department Care Team (Late st Contact Info) Description 11/01/2011 [place] [address] Annie Monge RN Social History [...] 10:26 AM EDT Fax received from patient's [employer] one teacher's office requesting last office note be faxed to them for patient's hearing this morning. They faxed a notarized release of information signed by the patient, as well as a [facility] release form signed by patient. Last office note was then faxed to the [employer] one teacher's office as requested. [employer] in [place], [place]. phone [phone], fax [phone]. Release forms were sent to Medical Records for scanning. documented in this encounter Plan of Treatment Not on file documented as of this encounter Visit Diagnoses Not on filedocumented in this encounter Care Teams Wheel And Axle Inspector Relationship Specialty Start Date End Date Unknown None PCP - General 03/02/11 09/05/20 documented as of this encounter
--- OUTSIDE RECORDS SUMMARY | 2023-11-18 11:41 | XMS_ITS | Encounter Summary ---
Author Organization [facility] Address One [facility] [place] [address] Care Team Providers Care Development Intern Name Role Phone None Primary Care Provider Unavailabl e Encounter Details Date Type Department Care Team (Latest Contact Info) Description 10/04/2020 10:59 AM EDT - 10/04/2020 11:59 PM EDT Hospital Encounter Lab at [address] [phone] Discharge Disposition: Home Social History Tobacco Use [...] Davey BUTTS CHEMISTRY ORDERABLES Performing Organization Address [facility] Co de Phone Number [facility] [address] [place] [address] * D-Dimer, Quantitative (10/04/2020 9:45 AM EDT) Pathologist [facility] D-Dimer 241 0 - 500 FEU [...] BUTTS HEMATOLOGY ORDERABLE S Performing Organization Address City/[facility]/ZIP Co de Phone Number [facility] [address] [place] [address] * pro-Brain Natriuretic Peptide (10/04/2020 9:45 AM EDT) NT-proBNP 18 <=124 pg/mL [facility] Blood Venous Draw / Unknown 10/04/2020 9:45 AM EDT 10/04/2020 11:00 AM EDT Narrative Resulting Agency Comment Spec In Lab Davey BUTTS CHEMISTRY ORDERABLES [facility] [address] [place] [address] * Basic Metabolic Panel (non-fasting) (10/04/2020 9:45 [...] BUTTS CHEMISTRY ORDERABLES [facility] [address] [place] [address] documented in this encounter Visit Diagnoses Not on filedocumented in this encounter Care Teams Development Intern Relationship Specialty Start Date End Date None None PCP - General 09/06/20 04/18/22 documented as of this encounter
--- OUTSIDE RECORDS SUMMARY | 2023-11-18 11:41 | XMS_ITS | Encounter Summary ---
Author Organization [facility] Address [address] [place] [address] Care Team Providers Care Client Specialist Name Role Phone Unavailable Primary Care Provider Unavailabl e Encounter Details Date Type Department Care Team (Latest Contact Info) Description 03/07/2001 11:29 EST - 03/07/2001 11:59 EST Hospital Encounter [address] [address] Jose Greenberg MD [address] [place] [phone] Discharge Disposition: Auto Discharge Social History Tobacco [...]
--- OUTSIDE RECORDS SUMMARY | 2023-11-18 11:41 | XMS_ITS | Encounter Summary ---
Author Organization [facility] [place] [address] Care Team Providers Care Mascara Molder Name Role Phone Unknown Primary Care Provider Unavailabl e Encounter Details Date Type Department Care Team (Late st Contact Info) Description 06/27/[address] [facility] Information Services [address] [facility] [place] [phone] Provider, His [place] MD Social History Tobacco [...] LAB RESULT CONVERSION Comment: Sourced from [facility] Conversion Basophil % 0.6(Exter nal Lab) 0.0 - 2.0 percent [facility] RESULT CONVERSION Comment: Sourced from [facility] [place] Conversion Eosinophils Abs 0.36(Exte rnal Lab) 0.0 - 0.8 THOUS [facility] RESULT CONVERSION Comment: Sourced from [place] [facility] Conversion Eos % 6.6(Exter nal Lab) 0.0 - 7.0 percent [facility] RESULT CONVERSION Comment: Sourced from [facility] [place] Conversion Hematocrit 47.1(Exte rnal Lab) 42.0 - 52.0 percent [facility] RESULT CONVERSION Comment: Sourced from [place] Conversion Hemoglobin 16.2(Exte rnal Lab) 14.0 - 18.0 g/dl [facility] RESULT CONVERSION Comment: Sourced from [place] Conversion White Blood Cell 5.40(Exte rnal Lab) 4.8 - 10.8 THOUS [facility] RESULT CONVERSION Comment: Sourced from [facility] [place] Conversion Large Unstained Cells ABS Count 0.10(Exte rnal Lab) 0.00 - 0.40 THOUS [facility] RESULT CONVERSION Comment: Sourced from [facility] [place] Conversion Large Unstained Cells % 1.9(Exter nal Lab) 0.0 - 4.0 percent [facility] RESULT CONVERSION Comment: Sourced from [facility] [place] Conversion Lymphocytes Abs 2.01(Exte rnal Lab) 0.90 - 5.20 THOUS [facility] RESULT CONVERSION Comment: Sourced from [place] [facility] Conversion Lymph % 37.3(Exte rnal Lab) 19.0 - 48.0 percent [facility] RESULT CONVERSION Comment: Sourced from [place] Conversion Mean Cell Hemoglobin 32.8(EXTE RNAL/ABN) 27 - 31 pg [facility] RESULT CONVERSION Comment: Sourced from [facility] [place] Conversion Mean Cell Hemoglobin Concentration 34.3(Exte rnal Lab) 33 - 37 g/dl [facility] RESULT CONVERSION Comment: Sourced from [facility] [place] Conversion Mean Cell Volume 95.6(EXTE RNAL/ABN) 80 - 94 FL [facility] RESULT CONVERSION Comment: Sourced from [place] Conversion Monocyte Abs 0.27(Exte rnal Lab) 0.16 - 1.00 THOUS [facility] RESULT CONVERSION Comment: Sourced from [place] Conversion Monocyte % 5.1(Exter nal Lab) 3.4 - 9.0 percent [facility] RESULT CONVERSION Comment: Sourced from [place] [facility] Conversion Mean Platelet Volume 8.8(Exter nal Lab) 7.2 - 11.1 FL [facility] RESULT CONVERSION Comment: Sourced from [facility] [place] Conversion Neutrophil Absolute (ANC) - Automated 2.62(Exte rnal Lab) 1.90 - 8.00 THOUS [facility] RESULT CONVERSION Comment: Sourced from [place] Conversion Neutrophil % 48.6(Exte rnal Lab) 40.0 - 74.0 percent [facility] RESULT CONVERSION Comment: Sourced from [facility] [place] Conversion Platelet 164(Exter nal Lab) 130 - 400 THOUS [facility] RESULT CONVERSION Comment: Sourced from [place] Conversion Red Blood Cell 4.92(Exte rnal Lab) 4.7 - 6.1 MILLIONS [facility] RESULT CONVERSION Comment: Sourced from [place] Conversion RDW coefficient of variation 11.2(EXTE RNAL/ABN) 11.5 - 14.5 percent [facility] RESULT CONVERSION Comment: Sourced from [place] Conversion 06/27/2012 9:50 AM EDT His [place]le Provider HEMATOLOGY ORDERAB LES [facility] RESULT CONVERSION documented in this encounter Visit Diagnoses Not on filedocumented in this encounter Care Teams Mascara Molder Relationship Specialty Start Date End Date Unknown None PCP - General 03/02/11 09/05/20 documented as of this encounter
--- OUTSIDE RECORDS SUMMARY | 2023-11-18 11:41 | XMS_ITS | Encounter Summary ---
Author Organization [facility] [place] [address] Care Team Providers Care Family Support Coordinator Name Role Phone Unknown Primary Care Provider Unavailabl e Encounter Details Date Type Department Care Team (Late st Contact Info) Description 05/11/2011 3:30 PM EDT [place] [address] Leonor Paulino, [facility] [address] GASTROENTEROLOGY [place] [address] Hepatitis c, chronic Discharge Disposition: Home Social [...] 05/11/2011 1:52 PM EDT Subjective: Patient ID: [email or web address] Monet is a 40 y.o. male. HPI [...] discussed. The patient agrees to see an Asbestos Siding Mechanic if visual changes occur. We also discussed [...] coma documented in this encounter Care Teams Family Support Coordinator Relationship Specialty Start Date End Date Unknown None PCP - General 03/02/11 09/05/20 documented as of this encounter
--- OUTSIDE RECORDS SUMMARY | 2023-11-18 11:41 | XMS_ITS | Encounter Summary ---
Author Organization [facility] Address [address] [place] [address] Care Team Providers Care String Winding Machine Operator Name Role Phone Callum Samayoa DO Primary Care Provider +1- [phone] Encounter Details Date Type Department Care Team (Late st Contact Info) Description 09/16/2010 Orders Only [facility] Gastroenterology - [address] [address] Jad Burt MD [address] [facility], [address] [place] [address] Chronic hepatitis C without mention [...] Primary documented in this encounter Care Teams String Winding Machine Operator Relationship Specialty Start Date End Date Callum Samayoa DO [address] [place] [address] [place] [address] PCP - General 06/22/09 documented as of this encounter
--- OUTSIDE RECORDS SUMMARY | 2023-11-18 11:41 | XMS_ITS | Encounter Summary ---
Author Organization [facility] [place] [address] Care Team Providers Care Strategic Client Executive Name Role Phone Unknown Primary Care Provider Unavailabl e Reason for Visit * Reason Comments Follow-up Encounter Details Date Type Department Care Team (Late st Contact Info) Description 10/26/2011 10:30 AM EDT [place] [phone] Leonor Paulino APRN [facility] DR GASTROENTEROLOGY DEPT. [place] [id number] Hepatitis c, chronic (Primary Dx) Discharge Disposition: [...] coma documented in this encounter Care Teams Strategic Client Executive Relationship Specialty Start Date End Date Unknown None PCP - General 03/02/11 09/05/20 documented as of this encounter
--- OUTSIDE RECORDS SUMMARY | 2023-11-18 11:41 | XMS_ITS | Encounter Summary ---
Author Organization [facility] [place] [address] Care Team Providers Care Access Services Librarian Name Role Phone Unknown Primary Care Provider Unavailabl e Reason for Visit * Reason Comments Hepatitis C Encounter Details Date Type Department Care Team (Late st Contact Info) Description 03/07/2011 1:00 PM EST Office [place] [phone] Leonor Paulino APRN [facility] DR GASTROENTEROLOGY DEPT. [place] [id number] Hepatitis c, chronic (Primary Dx) Discharge Disposition: [...] further health care. He was incarcetated from [id number], he had no tattoo's placed while incarcerated. 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 He denies blood transfusion, he lived with a friend who had hepatitisC no known shared objects. He was previously followed by [facility] and had a liver biopsy which showed stage IIIdisease it was recommended that he pursue treatment but then he violated his parole and was sent back to halfway. He was released in September of 2010 and he has transferred his care to [facility] as it is closer and more convenient. He was diagnosed in halfway with Hemochromatosis, he had phlebotomies when he [...] History Narrative Lives aloneSingleRecently laid off from [employer] Family History Problem Relation Age of Onset [...] Hepatitis c, chronic HIV SCREEN, 4TH GENERATION ([facility]) Routine 03/07/2011 2:11 PM EST Hepatitis c, [...] (Bezet) 411 ms MUSE SYSTEM Calculated P Elma 20 degrees MUSE SYSTEM Calculated R Elma 93 degrees MUSE SYSTEM Calculated T Elma 47 degrees MUSE SYSTEM INTERPRETATION Sinus bradycardia [...] Gran % 0.10 0.00 - 0.66 % [facility] CORTNEYENNIUM Comment: Immature granulocytes(IG's)percentage and absolute count will include metamyelocytes, myelocytes, and promyelocytes. Blood smears from CBCs yielding IG's will be scanned manually for concordance. If this scan disagrees with the automated IG or if promyelocytes are noted, a manual differential will be performed. Immature Gran Absolute 0.01 0.00 - 0.05 x10(3)/mcL [facility] Blood specimen (specimen) 03/07/2011 2:11 PM EST 03/07/2011 2:25 PM EST Zachary Wilburn MD HEMATOLOGY ORDERABL ES [facility] * HCV GENOTYPE (03/07/2011 2:11 PM [...] purpose of identifying the HCV genotype. Method [employer] HCV Genotype LiPA. Random primers are used [...] 4c/4d, 4e, 4f, 4h, 5a, or 6a. [facility] Comment: [VERIFIED DATE]03.21.11 Verified By:Genesis Ramon (Electronic Signature) Blood specimen (specimen) 03/07/2011 2:11 PM EST 03/09/2011 7:48 AM EST Zachary Wilburn MD HEMATOLOGY ORDERABL Performing Organization Address [facility] Phone Number [facility] * HCV QUANT (03/07/2011 2:11 PM EST) [facility] HCV Viral Load [id number] IU/mL [facility] HCV Viral Load Result: [id number] Indication for Study: Hepatitis C Infection Analysis: [...] This assay is being performed in the [facility] Molecular Pathology Laboratory. Migue Watkins, Ph.D. Director, Molecular Pathology [facility] Comment: [VERIFIED DATE]03.11.11 Verified By:Genesis Ramon (Electronic Signature) Blood specimen (specimen) 03/07/2011 2:11 PM EST 03/09/2011 7:48 AM EST Zachary Wilburn MD HEMATOLOGY ORDERABL Performing Organization Address [facility] Phone Number [facility] * HFE MUT (03/07/2011 2:11 PM EST) [facility] HFE Mutation RESULTS: ??HETEROZYGOUS POSITIVE FOR THE [...] (C282Y and H63D) are analyzed using [employer] pre-developed assays for SNP detection on an [...] determined by the Molecular Pathology Laboratory at [facility]. This test is used for clinical purposes [...] MD HEMATOLOGY ORDERABL ES Performing Organization Address [facility] de Phone Number CERNER MILLENNIUM * HIV (03/07/2011 2:11 PM EST) HIV 1/2 Ab Negative [facility] MILLENNIUM Blood specimen (specimen) 03/07/2011 2:11 PM EST 03/07/2011 2:25 PM EST Zachary Wilburn MD CHEMISTRY ORDERABLE S Performing Organization Address [facility] Phone Number [facility] MILLENNIUM * Cryoglobulin (03/07/2011 2:11 PM EST) Cryoglobulin See Note [facility] MILLENNIUM Comment:Cryoglobulins negati ve at 24 and 72 hours. Blood specimen (specimen) 03/07/2011 2:11 PM EST 03/07/2011 2:16 PM EST Zachary Wilburn MD CHEMISTRY ORDERABLE S Performing Organization Address [facility] de Phone Number [facility] MILLENNIUM * (ABNORMAL) Iron and TIBC (03/07/2011 2:11 PM EST) Iron 215(H) 45 - 160 mcg/dL [facility] M[facility]ENNI[facility] TIBC 324 250 - 450 mcg/dL [facility] M[facility]ENNI[facility] Iron Saturation 66(H) 20 - 50 % CERN ER MILLENNIUM Blood specimen (specimen) 03/07/2011 2:11 PM EST 03/07/2011 2:25 PM EST Zachary Wilburn MD CHEMISTRY ORDERABLE S Performing Organization Address [facility] de Phone Number CERNER MILLENNIUM * Ferritin (03/07/2011 2:11 PM EST) Ferritin 184 30 - 400 ng/mL [facility] Comment: Pediatric reference ranges not verified at [facility], interpret with caution. Reference ranges for females greater than 50 years of age approach values for men, i.e., 30-400 ng/mL. Blood specimen (specimen) 03/07/2011 2:11 PM EST 03/07/2011 2:25 PM EST Zachary Wilburn MD CHEMISTRY ORDERABLE S Performing Organization Address [facility] de Phone Number [facility] * (ABNORMAL) BEN (03/07/2011 2:11 PM EST) BEN Pos(A) Neg [facility] Comment: 1:80 Titer seen with Speckled pattern. ??Is suggestive of autoantibodies to Sm, REGULATORY SCIENTIST, SCL-70, or SS-B. Blood specimen (specimen) 03/07/2011 2:11 PM EST 03/08/2011 8:16 AM EST Zachary Wilburn MD LAB SEND OUT ORDERA BLES Performing Organization Address [facility] de Phone Number [facility] * TSH (03/07/2011 2:11 PM EST) Thyroid Stimulating Hormone 1.54 0.27 - 4.20 mcIU/mL [facility] Blood specimen (specimen) 03/07/2011 2:11 PM EST 03/07/2011 2:25 PM EST Zachary Wiblurn MD CHEMISTRY ORDERABLE S Performing Organization Address [facility] Co de Phone Number [facility] * Prothrombin Time (03/07/2011 2:11 PM EST) Prothrombin Time 13.5 12.3 - 14.7 sec [facility] Comment: [facility] Transfusion Committee Guidelines: INR less than [...] 2:11 PM EST 03/07/2011 2:25 PM EST Zcahary Wilburn MD HEMATOLOGY ORDERABL ES BENNETT MADERA documented in this encounter Visit Diagnoses Diagnosis Hepatitis C, chronic- Primary Chronic hepatitis C without mention of hepatic coma documented in this encounter Care Teams Access Services Librarian Relationship Specialty Start Date End Date Unknown None PCP - General 03/02/11 09/05/20 documented as of this encounter
--- OUTSIDE RECORDS SUMMARY | 2023-11-18 11:41 | XMS_ITS | Encounter Summary ---
Author Organization [facility] Address [address] [place] [address] Care Team Providers Care Cooperer Name Role Phone Nick Moreno MD Primary Care Provider +1- [phone] Encounter Details Date Type Department Care Team (Late st Contact Info) Description 10/02/2008 10:47 EDT - 10/02/2008 23:59 EDT Hospital Encounter [address] [address] Jad Burt MD [address] [place] [address], [address] [place] [phone] Discharge Disposition: Home or Self Care Social History Tobacco Use Types Packs/Day Years Used Date Smoking Tobacco: Never Assessed Sex and Gender Information Value Date Recorded Sex Assigned at Not on file Gender Identity Male 06/08/2022 11:45 EDT Sexual Orientation Not on file documented as of this encounter Discharge Disposition Disposition Code Departure Means Destination Home or Self Assisted documented in this encounter Plan of Treatment [...] & BLOOD GAS ORDERABLES Performing Organization Address [facility] de Phone Number [facility] [address] [place] [address] * HEPATITIS B CORE ANTIBODY (10/02/2008 11:01 EDT) Hep B Core Ab Negative Reference Range: ??Negative Interpretati on depends on clinical setting. [facility] Blood specimen (specimen) 10/02/2008 11:01 EDT 10/02/2008 11:03 EDT Jad Burt MD CHEMISTRY & BLOOD GAS ORDERABLES Performing Organization Address [facility] de Phone Number [facility] [address] [place] [address] * HEPATITIS A TOTAL ANTIBODY (10/02/2008 11:01 EDT) Hep A Antibody Positive Antibody to Hepatitis A detected. Reference Range: ??Negative [facility] Blood specimen (specimen) 10/02/2008 11:01 EDT 10/02/2008 11:03 EDT Jad Burt MD CHEMISTRY & BLOOD GAS ORDERABLES Performing Organization Address [facility] Co de Phone Number [facility] [address] [place] [address] * HEPATITS B SURFACE ANTIGEN (10/02/2008 11:01 EDT) Hepatitis B Surface Ag Negative Reference Range: ??Negative [facility] Blood specimen (specimen) 10/02/2008 11:01 EDT 10/02/2008 11:03 EDT Jad Burt MD CHEMISTRY & BLOOD GAS ORDERABLES [facility] [address] [place] [address] * HEMOCHROMATOSIS (10/02/2008 11:01 EDT) Hemochromatosis Gene [...] PERFORMED BY: ? [facility] Diagn[facility] Laboratory ? [facility] ? [address] ? [facility] ? [place] [address] ? These results need to be interpreted [...] do ? not require FDA approval. ??A [place] statute prevents our laboratory ? from releasing [...] EDT Jad Burt MD PACKAGES & DNA TN OBE ORDERABLES Performing Organization Address [facility] de Phone Number [facility] [address] [place] [address] * PTT (10/02/2008 11:01 EDT) PTT 34 20 - 35 secs [facility] Comment:Therapeutic Heparin range: 60-100 seconds Blood specimen (specimen) 10/02/2008 11:01 EDT 10/02/2008 11:03 EDT Jad Burt MD HEMATOLOGY & PF4 ORDERABLES Performing Organization Address [facility] de Phone Number [facility] [address] [place] [address] * PROTIME (10/02/2008 11:01 EDT) Pro Time [...] & PF4 ORDERABLES [facility] [address] [place] [address] documented in this encounter Visit Diagnoses Not on filedocumented in this encounter Care Teams Cooperer Relationship Specialty Start Date End Date Nick Moreno MD [address] [place] [address] PCP - General 09/30/08 06/17/09 documented as of this encounter
--- OUTSIDE RECORDS SUMMARY | 2023-11-18 11:41 | XMS_ITS | Encounter Summary ---
Author Organization [facility] [address] [facility] [place] [address] Care Team Providers Care Engraver Set Up Operator Name Role Phone Unknown Primary Care Provider Unavailabl e Encounter Details Date Type Department Care Team (Late st Contact Info) Description 08/22/2012 [facility] [address] [place] [phone] Provider, His [place] MD Social History Tobacco [...] LAB RESULT CONVERSION Comment: Sourced from [facility] [place] Conversion Basophil % 1.0(Exter nal Lab) 0.0 - 2.0 percent [facility] RESULT CONVERSION Comment: Sourced from [facility] [place] Conversion Eosinophils Abs 0.26(Exte rnal Lab) 0.0 - 0.8 THOUS [facility] RESULT CONVERSION Comment: Sourced from [facility] [place] Conversion Eos % 4.2(Exter nal Lab) 0.0 - 7.0 percent [facility] RESULT CONVERSION Comment: Sourced from [facility] [place] Conversion Hematocrit 46.4(Exte rnal Lab) 42.0 - 52.0 percent [facility] RESULT CONVERSION Comment: Sourced from [facility] [place] Conversion Hemoglobin 16.3(Exte rnal Lab) 14.0 - 18.0 g/dl [facility] RESULT CONVERSION Comment: Sourced from [facility] [place] Conversion White Blood Cell 6.03(Exte rnal Lab) 4.8 - 10.8 THOUS [facility] RESULT CONVERSION Comment: Sourced from [facility] [place] Conversion Large Unstained Cells ABS Count 0.07(Exte rnal Lab) 0.00 - 0.40 THOUS [facility] RESULT CONVERSION Comment: Sourced from [facility] [place] Conversion Large Unstained Cells % 1.2(Exter nal Lab) 0.0 - 4.0 percent [facility] RESULT CONVERSION Comment: Sourced from [facility] [place] Conversion Lymphocytes Abs 2.11(Exte rnal Lab) 0.90 - 5.20 THOUS [facility] RESULT CONVERSION Comment: Sourced from [facility] [place] Conversion Lymph % 34.9(Exte rnal Lab) 19.0 - 48.0 percent [facility] RESULT CONVERSION Comment: Sourced from [facility] [place] Conversion Mean Cell Hemoglobin 32.9(EXTE RNAL/ABN) 27 - 31 pg [facility] RESULT CONVERSION Comment: Sourced from [facility] [place] Conversion Mean Cell Hemoglobin Concentration 35.1(Exte rnal Lab) 33 - 37 g/dl [facility] RESULT CONVERSION Comment: Sourced from [facility] [place] Conversion Mean Cell Volume 93.8(Exte rnal Lab) 80 - 94 FL [facility] RESULT CONVERSION Comment: Sourced from [facility] [place] Conversion Monocyte Abs 0.27(Exte rnal Lab) 0.16 - 1.00 THOUS [facility] RESULT CONVERSION Comment: Sourced from [facility] [place] Conversion Monocyte % 4.5(Exter nal Lab) 3.4 - 9.0 percent [facility] RESULT CONVERSION Comment: Sourced from [facility] [place] Conversion Mean Platelet Volume 7.4(Exter nal Lab) 7.2 - 11.1 FL [facility] RESULT CONVERSION Comment: Sourced from [facility] [place] Conversion Neutrophil Absolute (ANC) - Automated 3.27(Exte rnal Lab) 1.90 - 8.00 THOUS [facility] RESULT CONVERSION Comment: Sourced from [facility] [place] Conversion Neutrophil % 54.2(Exte rnal Lab) 40.0 - 74.0 percent [facility] RESULT CONVERSION Comment: Sourced from [facility] [place] Conversion Platelet 151(Exter nal Lab) 130 - 400 THOUS [facility] RESULT CONVERSION Comment: Sourced from [facility] [place] Conversion Red Blood Cell 4.95(Exte rnal Lab) 4.7 - 6.1 MILLIONS [facility] RESULT CONVERSION Comment: Sourced from [facility] [place] Conversion RDW coefficient of variation 12.4(Exte rnal Lab) 11.5 - 14.5 percent [facility] RESULT CONVERSION Comment: Sourced from [facility] [place] Conversion 08/22/2012 6:00 AM EDT His [place] Provider HEMATOLOGY ORDERAB LES [facility] RESULT CONVERSION documented in this encounter Visit Diagnoses Not on filedocumented in this encounter Care Teams Engraver Set Up Operator Relationship Specialty Start Date End Date Unknown None PCP - General 03/02/11 09/05/20 documented as of this encounter
--- OUTSIDE RECORDS SUMMARY | 2023-11-18 11:41 | XMS_ITS | Encounter Summary ---
Author Organization [facility] Address [address] [facility] [place] [address] Care Team Providers Care Retail Selling Specialist Name Role Phone None Primary Care Provider Unavailabl e Encounter Details Date Type Department Care Team (Latest Contact Info) Description 10/19/2020 2:45 PM EDT - 10/19/2020 2:59 PM EDT Hospital Encounter XRay at [address] [address] Brian Cooper MD [address] [place] [address] [place] [address] Left knee pain, unspecified chronicity [...] who have questions please contact the health anesthesiologist and critical care that requested your imaging first. ? Electronically signed by: LEVI BARTON MD, [facility] ([phone]), at 10/20/2020 7:40 AM Narrative 10/20/2020 7:40 [...] patients who have questions please contactthe health anesthesiologist and critical care that requested your imaging first. Electronically signed by: LEVI BARTON MD, [facility]([phone]), at 10/20/2020 7:40 AM Brian Cooper MD IMG DX ORDERABLES documented in this encounter Visit Diagnoses Diagnosis Left knee pain, unspecified chronicity documented in this encounter Care Teams Retail Selling Specialist Relationship Specialty Start Date End Date None None PCP - General 09/06/20 04/18/22 documented as of this encounter
--- OUTSIDE RECORDS SUMMARY | 2023-11-18 11:41 | XMS_ITS | Encounter Summary ---
Author Organization [facility] [place] [address] Care Team Providers Care Hemmer Lockstitch Name Role Phone Unknown Primary Care Provider Unavailabl e Reason for Visit * Reason Onset Date Comments Other 06/24/2011 f/u rash Encounter Details Date Type Department Care Team (Late st Contact Info) Description 06/24/2011 Telephone [place] [phone] Leonor Paulino APRN [facility] [place] [address] Other (f/u rash) Social History Tobacco Use [...] Plan for f/u rash per Monie Paulino SHARED SERVICES AND OUTSOURCING MANAGER: See prior notes of today: Unable to [...] for rash Apply hydrocortisone cream Call gastro obiee consultant fellow if rash flares again and/or extends over 50% of his body. Continue medications for now Call clinic Monday am for probable appointment to evaluate continuation of treatment medications. documented in this encounter Plan of Treatment Not on file documented as of this encounter Visit Diagnoses Not on filedocumented in this encounter Care Teams Hemmer Lockstitch Relationship Specialty Start Date End Date Unknown None PCP - General 03/02/11 09/05/20 documented as of this encounter
--- OUTSIDE RECORDS SUMMARY | 2023-11-18 11:41 | XMS_ITS | Encounter Summary ---
Author Organization [facility] [place] [address] Care Team Providers Care Juvenile Justice Officer Name Role Phone Unknown Primary Care Provider Unavailabl e Reason for Visit * Reason Onset Date Comments Medication Refill 05/24/2011 Encounter Details Date Type Department Care Team (Late st Contact Info) Description 05/24/2011 Refill Gastro[place] [phone] Leonor Paulino APRN [facility] [place]STROENTER[place] [address] Social History Tobacco Use Types Packs/Day Years [...] on filedocumented in this encounter Care Teams Juvenile Justice Officer Relationship Specialty Start Date End Date Unknown None PCP - General 03/02/11 09/05/20 documented as of this encounter
--- OUTSIDE RECORDS SUMMARY | 2023-11-18 11:41 | XMS_ITS | Encounter Summary ---
Author Organization [facility] Address [address] [place] [address] Care Team Providers Care Garden Center Manager Name Role Phone YaoCallum Primary Care Provider +1- [phone] Reason for Visit * Reason Onset Date Comments Other 06/21/2010 hep c.Waiting to schedule appt. to start treatment. Encounter Details Date Type Department Care Team (Late st Contact Info) Description 06/21/2010 Telephone [facility] Gastroenterology - [address] [address] Jad Burt MD [address] [facility], [address] [place] [address] Other (hep c.Waiting to schedule [...] on filedocumented in this encounter Care Teams Garden Center Manager Relationship Specialty Start Date End Date Callum Samayoa DO [address] [place] [address] PCP - General 06/22/09 documented as of this encounter
--- OUTSIDE RECORDS SUMMARY | 2023-11-18 11:41 | XMS_ITS | Encounter Summary ---
Author Organization [facility] [place] [address] Care Team Providers Care Flight Control Specialist Name Role Phone Unknown Primary Care Provider Unavailabl e Encounter Details Date Type Department Care Team (Late st Contact Info) Description 06/24/2011 Telephone [place] [phone] Leonor Paulino APRN [facility] GASTROENTEROLOGY [place] [address] Social History Tobacco Use Types Packs/Day Years [...] filedocumented in this encounter Care Teams Flight Control Specialist Relationship Specialty Start Date End Date Unknown None PCP - General 03/02/11 09/05/20 documented as of this encounter
--- OUTSIDE RECORDS SUMMARY | 2023-11-18 11:41 | XMS_ITS | Encounter Summary ---
Author Organization [facility] Address [address] [place] [address] Care Team Providers Care Pie Maker Name Role Phone Callum Samayoa DO Primary Care Provider +1- [phone] Nick Moreno MD Primary Care Provider +1- [phone] Nick Moreno MD Primary Care Provider +1- [phone] Cesar Sellers MD Primary Care Provider +1 -[phone] Encounter Details Date Type Department Care Team (Late st Contact Info) Description 12/16/2005 Results Only [facility] - Map conversion [address] [place] [address] Shana Melo MD [address] [place] [address] Social History Tobacco Use Types Packs/Day Years [...] ? NICK MONET ? Accession #: ? [id number] ? : ? 1970 (Age: 35) ??M ? Collect Date: ? 12/16/2005 ? Location: ? [facility] ? Receive Date: ? 12/16/2005 ? Provider: SHANA EMLO MD Copy to: ? Final Pathologic Diagnosis: [...] Gross Description: ? Received in formalin labelled [place] and distal segment right biceps tendon is a 2.6 x 1.6 x 0.6 cm rectangular portion of white-watts, focally hemorrhagic, tendonous tissue with moderate detached adipose tissue. ??The specimen is sectioned into two cross sections, a longitudinal section, and entirely submitted as (A1) and (A2). ??(Herrera Horan)/[facility] End of Report [facility] 12/16/2005 12/16/2005 8:5 0 EST Shana Melo MD PATHOLOGY ORDERABLES [facility] [address] [place] [address] documented in this encounter Visit Diagnoses Not on filedocumented in this encounter Care Teams Pie Maker Relationship Specialty Start Date End Date Yao, Callum F, DO [address] [place] [address] [place] [address] PCP - General 06/22/09 Nick Moreno MD [address] [place] [phone] PCP - General 06/18/09 06/21/09 Nick Moreno MD [address] [place] [phone] PCP - General 09/30/08 06/17/09 Cesar Sellers MD ATTN: [address] [address] PCP - General 06/12/08 09/29/08 documented as of this encounter
--- OUTSIDE RECORDS SUMMARY | 2023-11-18 11:41 | XMS_ITS | Encounter Summary ---
Author Organization [facility] [place] [address] Care Team Providers Care Sock Examiner Name Role Phone Unknown Primary Care Provider Unavailabl e Reason for Visit * Reason Onset Date Comments Other 06/24/2011 rash Encounter Details Date Type Department Care Team (Late st Contact Info) Description 06/24/2011 Telephone Gastroenterology at [facility] [place] [phone] Leonor Paulino APRN [facility] [place] [address] Other (rash) Social History Tobacco Use Types [...] our call as well. I have updated BEAD FORMING MACHINE SET UP OPERATOR: Kal. documented in this encounter Plan of Treatment Not on file documented as of this encounter Visit Diagnoses Not on filedocumented in this encounter Care Teams Sock Examiner Relationship Specialty Start Date End Date Unknown None PCP - General 03/02/11 09/05/20 documented as of this encounter
--- OUTSIDE RECORDS SUMMARY | 2023-11-18 11:41 | XMS_ITS | Encounter Summary ---
Author Organization [facility] [place] [address] Care Team Providers Care Rocket Propellant Plant Supervisor Name Role Phone Unknown Primary Care Provider Unavailabl e Encounter Details Date Type Department Care Team (Late st Contact Info) Description 10/31/2011 [place] [address] Leonor Paulino APRN [facility] [place] [address] Social History Tobacco Use Types Packs/Day Years [...] EDT Spoke with Dr. Moreno from the [place] dept of corrections, [place] is currently incarcerated, heis due for his interferon dose this evening but the senior living system cannot get the injection until tomorrow night, which should be fine. We discussed the duration of his treatment course which should be four more weeks, current dose is ribavirin 400 mg bid and pegasys 180 mcg qweek. documented in this encounter Plan of Treatment Not on file documented as of this encounter Visit Diagnoses Not on filedocumented in this encounter Care Teams Rocket Propellant Plant Supervisor Relationship Specialty Start Date End Date Unknown None PCP - General 03/02/11 09/05/20 documented as of this encounter
--- OUTSIDE RECORDS SUMMARY | 2023-11-18 11:41 | XMS_ITS | Encounter Summary ---
Author Organization [facility] Address [address] [place] [address] Care Team Providers Care Prize Coordinator Name Role Phone Callum Samayoa DO Primary Care Provider [phone] Encounter Details Date Type Department Care Team (Late st Contact Info) Description 06/24/2009 7:34 EDT - 06/24/2009 21:17 EDT Hospital Encounter [facility] [address] [place] [id number] Jad Burt MD [address] [facility] [address] [place] [phone] Discharge Disposition: Home or Self Care Social [...] 06/24/2009 documented in this encounter Care Teams Prize Coordinator Relationship Specialty Start Date End Date Callum Samayoa, [address] [place] [address] TREVORLAQUITA HERNANDEZ [id number] PCP - General 06/22/09 documented as of this encounter
--- OUTSIDE RECORDS SUMMARY | 2023-11-18 11:41 | XMS_ITS | Encounter Summary ---
Author Organization [facility] Address [address] [facility] [place] [address] Care Team Providers Care Master Control Technician Name Role Phone Unknown Primary Care Provider Unavailabl e Encounter Details Date Type Department Care Team (Late st Contact Info) Description 04/20/2012 2:00 PM EDT Office Visit [address] [phone] Chaya Mckeon PA [address] [place] [address] [place] [address] Social History Tobacco Use Types Packs/Day Years Used Date Smoking Tobacco: Never Assessed Sex and Gender Information Value Date Recorded Sex Assigned at Not on file Gender Identity Not on file Sexual Orientation Not on file documented as of this encounter Plan of Treatment Not on file documented as of this encounter Visit Diagnoses Not on filedocumented in this encounter Care Teams Master Control Technician Relationship Specialty Start Date End Date Unknown None PCP - General 03/02/11 09/05/20 documented as of this encounter
--- OUTSIDE RECORDS SUMMARY | 2023-11-18 11:41 | XMS_ITS | Encounter Summary ---
Author Organization [facility] Address One [facility] [place] [address] Care Team Providers Care Stroke Program Coordinator Name Role Phone None Primary Care Provider Unavailabl e Reason for Visit * Reason Comments Left Knee Pain Encounter Details Date Type Department Care Team (Late st Contact Info) Description 11/06/2020 9:00 AM EDT Office Visit Orthopaedics at [address] [phone] Aryan Pendleton PA [address] [place] [address] [place] [address] Left knee pain, unspecified chronicity; [...] meniscal pathology-this willneed to be coordinated through [facility] department nursing staff. He will need follow-up [...] who have questions please contact the health grounds caretaker that requested your imaging first. ? Electronically signed by: UNRULY SINHA MD, [facility] ([phone]), at 11/06/2020 10:59 AM Narrative 11/06/2020 10:59 [...] patients who have questions please contactthe health grounds caretaker that requested your imaging first. Electronically signed by: UNRULY SINHA MD, [facility] ([phone]), at 11/06/2020 10:59 AM Claudio Marques MD [...] mg documented in this encounter Care Teams Stroke Program Coordinator Relationship Specialty Start Date End Date None None PCP - General 09/06/20 04/18/22 documented as of this encounter
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
== END 2023-11-18 12:25 | disposition home or self-care (01) ==
PROVIDERS: Emergency Provider Registered Nurse Emergency; PCP Physical Therapist
DX: S87.82XA Crushing injury of left lower leg, initial encounter (principal); V59.88XA Occupant (driver) (passenger) of pick-up truck or van injured in other specified transport accidents, initial encounter; F17.210 Nicotine dependence, cigarettes, uncomplicated
CPT/HCPCS: 99283; 73590

== ENCOUNTER 2024-02-07 02:24 | Emergency (ER) | payer MEDICAID, SELFPAY ==
[2024-02-07 02:03] VITALS: BP 144/104; PULSE 92; RESP 18; TEMP 36.4; O2SAT 94
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
--- NOTE | 2024-02-07 02:15 | RT.EKG_ITS ---
APPROVED REPORT Exam: Resting ECG Reason for Exam: psych eval Patient Location: E HR:89 bpm ECG Measurements Heart Rate 89 AXIS VA 156 P 69 QRSd 102 QRS 91 QT 376 T -12 QTc 457 Conclusion Sinus rhythm...normal P axis, V-rate 60- 99 Normal [place]/Interval There are no significant changes compared to prior EKG performed on 11/22/2022 at 22:52.
[2024-02-07 02:22] LABS: Abs Immature Grans 0.03 10^3/uL (0.0-0.06); Absolute Basophil Count 0.05 10^3/uL (0.0-0.2); Absolute Eosinophil Count 0.19 10^3/uL (0.0-0.7); Absolute Lymphocyte Count 1.83 10^3/uL (1.2-3.4); Absolute Monocyte Count 0.67 10^3/uL (0.1-0.8); Absolute Neutrophil Count 7.44 10^3/uL (1.2-6.7); Basophils % 0.5 %; Eosinophils % 1.9 %; HCT 44.2 % (40.0-50.0); HGB 15.1 g/dL (13.5-17.5); Immature Grans % 0.3 %; Lymphocytes % 17.9 %; MCHC 34.2 % (32.0-36.0); MCV 97 fL (80-95); MPV 9.6 fL (8.0-11.0); Monocytes % 6.6 %; Neutrophils % 72.8 %; Platelet Count 192 10^3/uL (130-400); RBC 4.58 10^6/uL (4.36-5.78); RDW 12.2 % (11.8-14.1); RDW-SD 43.5 fL; WBC 10.21 10^3/uL (4.4-10.8)
[2024-02-07] MEDS: Ziprasidone 20 MG CAP PO (02:31)
[2024-02-07 02:38] LABS: ALT 27 U/L (16-63); AST 26 U/L (15-37); Albumin 3.7 g/dL (3.4-5.0); Alkaline Phosphatase 75 U/L (46-116); Anion Gap 7.8 mmol/L (3-11); BUN 16 mg/dL (7-18); Bilirubin, Total 0.34 mg/dL (0.2-1.0); CO2 28.2 mmol/L (21.0-32.0); CREATININE 0.9 mg/dL (0.70-1.30); Calcium 9.1 mg/dL (8.5-10.1); Chloride 105 mmol/L (98-107); ETHANOL BLOOD 6.4 mg/dL (<10); Estimated GFR 102.76 (mL/min/1.73m2); Glucose 127 mg/dL (74-106); Potassium 3.7 mmol/L (3.5-5.1); Sodium 141 mmol/L (136-145); Total Protein 7.7 g/dL (6.4-8.2)
[2024-02-07 02:46] LABS: Acetaminophen < 2 ug/mL (10-30); Salicylate 3.7 mg/dL (<2.8)
[2024-02-07 03:10] LABS: COVID-19 PCR Negative (Negative); Influenza A PCR Negative (Negative); Influenza B PCR Negative (Negative); RSV PCR Negative (Negative)
[2024-02-07 03:13] LABS: Source Nasopharynx
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
[2024-02-07 09:42] VITALS: BP 117/77; PULSE 84; RESP 20; TEMP 37; O2SAT 99
[2024-02-07] MEDS: Cephalexin 500 MG CAP PO ×3 (09:45→20:01)
[2024-02-07] MEDS: buPROPion-XL 150 MG TABCR 300 MG PO (09:45)
[2024-02-07] MEDS: Buprenorphine/Naloxone 12 mg/3 mg FILM 2 EACH SL (09:45)
[2024-02-07] MEDS: Gabapentin 300 MG CAP 600 MG PO ×4 (10:04→20:07)
[2024-02-07] MEDS: Ibuprofen 600 MG TAB PO ×2 (10:04→19:12)
[2024-02-07 10:22] LABS: *AMPHETAMINES SCREEN URINE Negative (Negative); *BARBITURATES SCREEN URINE Negative (Negative); *BENZODIAZEPINES SCREEN URINE Negative (Negative); Cannabinoids THC Positive (Negative); Cocaine Screen,Urine Positive (Negative); METHADONE URINE SCREEN Negative (Negative); OPIATES URINE SCREEN Negative (Negative)
[2024-02-07 10:25] LABS: Tricyclic Antidepressants Negative (Negative)
--- NOTE | 2024-02-07 16:02 | ED.PROG_ITS ---
Date of service: 02/07/24 Time of Service: 16:02 Medical Decision Making Patient was signed out to me by my colleague Dr. Giron. Please refer to his HPI, physical exam, assessment and plan. Time of signout we are still awaiting placement. Patient was stable throughout the shift. He did develop a mild headache for which she was given Tylenol. He did request a nicotine patch for which this was given. Additionally he requested gabapentin which had not been ordered, I did order this at 600 mg 3 times daily. He stated that he was taking 900 mg 3 times a day but his last prescription was for 600 for which we started him there. Additionally he also stated that he was taking 3 sublingual films of Suboxone, but we were only able to confirm that he is taking 2, and so we will continue at this dosing. Patient remains pending inpatient therapy. Quality:[facility] Health Related Social Needs: No Data to Display Discharge Plan Discharge Details Chief Complaint: PsychEval Clinical Impression: Paranoid, Psychosis Primary Care Provider: Jef Balderas ED Provider: Dimas Mao Home Meds and New Rx's Prescriptions: No Action bupropion HCl 300 mg tablet extended release 24 hr 300 mg PO DAILY Qty: 30 1RF ziprasidone HCl [Geodon] 20 mg capsule 20 mg PO DAILY Qty: 30 1RF Rx Instructions: give with food (meal/snack) cephalexin 500 mg capsule 500 mg PO TID Qty: 15 0RF gabapentin 600 mg tablet 600 mg PO TID Patient Comments: TAKE ONE TABLET BY MOUTH THREE TIMES A DAY buprenorphine-naloxone [Suboxone] 12-3 mg film 2 film sublingual DAILY Patient Comments: PLACE TWO FILMS UNDER THE TONGUE EVERY DAY FOR 7 DAYS
--- NOTE | 2024-02-07 16:05 | W.EDPROG ---
Date of service: 02/07/24 Time of Service: 16:05 Medical Decision Making Care assumed from outgoing provider. Patient is currently pending voluntary placement Quality:[facility] Health Related Social Needs: No Data to Display Discharge Plan Discharge Details Chief Complaint: PsychEval Clinical Impression: Paranoid, Psychosis Primary Care Provider: Jef Balderas ED Provider: Sonia Finch Home Meds and New Rx's Prescriptions: No Action bupropion HCl 300 mg tablet extended release 24 hr 300 mg PO DAILY Qty: 30 1RF ziprasidone HCl [Geodon] 20 mg capsule 20 mg PO DAILY Qty: 30 1RF Rx Instructions: give with food (meal/snack) cephalexin 500 mg capsule 500 mg PO TID Qty: 15 0RF gabapentin 600 mg tablet 600 mg PO TID Patient Comments: TAKE ONE TABLET BY MOUTH THREE TIMES A DAY buprenorphine-naloxone [Suboxone] 12-3 mg film 2 film sublingual DAILY Patient Comments: PLACE TWO FILMS UNDER THE TONGUE EVERY DAY FOR 7 DAYS
[2024-02-07] MEDS: Nicotine 14 MG/24 HR PATCH TD (16:07)
--- NOTE | 2024-02-08 06:02 | W.EDPROG ---
Date of service: 02/07/24 Time of Service: 23:00 Medical Decision Making This patient was signed out to me. Please see previous notes for H&P and initial eval. In brief, 53yo M pending voluntary inpatient psychiatric placement, medically cleared and home meds ordered. No acute events overnight. Requested colace which was ordered prn. Will be signed out to oncoming physician, plan remains as above. Quality:[facility] Health Related Social Needs: No Data to Display Discharge Plan Discharge Details Chief Complaint: PsychEval Clinical Impression: Paranoid, Psychosis Primary Care Provider: Jef Balderas ED Provider: Lissette Sharma Home Meds and New Rx's Prescriptions: No Action bupropion HCl 300 mg tablet extended release 24 hr 300 mg PO DAILY Qty: 30 1RF ziprasidone HCl [Geodon] 20 mg capsule 20 mg PO DAILY Qty: 30 1RF Rx Instructions: give with food (meal/snack) cephalexin 500 mg capsule 500 mg PO TID Qty: 15 0RF gabapentin 600 mg tablet 600 mg PO TID Patient Comments: TAKE ONE TABLET BY MOUTH THREE TIMES A DAY buprenorphine-naloxone [Suboxone] 12-3 mg film 2 film sublingual DAILY Patient Comments: PLACE TWO FILMS UNDER THE TONGUE EVERY DAY FOR 7 DAYS
[2024-02-08 07:23] VITALS: BP 145/92; PULSE 84; RESP 20; TEMP 36.4; O2SAT 99
--- NOTE | 2024-02-08 07:29 | ED.PROG_ITS ---
Date of service: 02/08/24 Time of Service: 07:30 Medical Decision Making Patient seeking voluntary placement for hallucinations, no issues on prior shift and currently with no new acute complaints. Will continue to monitor until safe disposition found. Quality:[facility] Health Related Social Needs: No Data to Display Discharge Plan Discharge Details Chief Complaint: PsychEval Clinical Impression: Paranoid, Psychosis Primary Care Provider: Jef Balderas ED Provider: Brian Diehl [place] Meds and New Rx's Prescriptions: No Action bupropion HCl 300 mg tablet extended release 24 hr 300 mg PO DAILY Qty: 30 1RF ziprasidone HCl [Geodon] 20 mg capsule 20 mg PO DAILY Qty: 30 1RF Rx Instructions: give with food (meal/snack) cephalexin 500 mg capsule 500 mg PO TID Qty: 15 0RF gabapentin 600 mg tablet 600 mg PO TID Patient Comments: TAKE ONE TABLET BY MOUTH THREE TIMES A DAY buprenorphine-naloxone [Suboxone] 12-3 mg film 2 film sublingual DAILY Patient Comments: PLACE TWO FILMS UNDER THE TONGUE EVERY DAY FOR 7 DAYS
[2024-02-08] MEDS: Ziprasidone 20 MG CAP PO (07:51)
[2024-02-08] MEDS: Gabapentin 300 MG CAP 600 MG PO (07:51)
[2024-02-08] MEDS: buPROPion-XL 150 MG TABCR 300 MG PO (07:51)
[2024-02-08] MEDS: Cephalexin 500 MG CAP PO (07:51)
[2024-02-08] MEDS: Buprenorphine/Naloxone 12 mg/3 mg FILM 2 EACH SL (07:54)
--- NOTE | 2024-02-08 09:28 | CMSP_ITS ---
Date of service: 02/08/24 Time of Service: 09:28 Care Management Safety Plan Status Status: Voluntary Reason for Wait Reason for Wait: Inpatient Admission and Assessment/Screening Safety Plan Safety Plan: VOLUNTARY FOR INPATIENT PSYCHIATRIC STABILIZATION.? Patient is appropriate in all interactions since arriving at [facility]; Pt has demonstrated appropriate coping and communication skills, has articulated his or her needs and concerns and is fully engaged during staff interactions. Safety plan has been established with patient, and care team, to adhere to lucia ent goals, identify restrictions based on behavioral status, address nutrition, and determine allowed personal belongings, tools for hygiene and personal care. Determine level of activity including ambulation, level of supervision, visitors, and determine privileges based on behaviors and level of engagement by pt. VOLUNTARY SAFETY PLAN: 1. Will remain on suicide precautions, in paper clothes 2. Will remain in Zone B under direct supervision of one-on-one staff at all times provided by [employer]; [employer], ICICLE MACHINE OPERATOR disaster recovery coordinator. 3. May have paper cups, plates, finger foods as well as a cardboard spoon with which to eat meals. 4. Follow [facility] Management of the Admitted Behavioral Health Patient policy. 5. Shower available in Zone B without restriction. 6. Personal belongings-soft items permitted at RN discretion. 7. Visitors-none at this time. 8. Activities: soft cart items approved per RN discretion. 9.? Bathroom available in Zone B without restriction. 10. Phone: limited to [facility] cordless phone at RN discretion. Due to VOLUNTARY status, if patient wishes to leave [facility], staff will contact [facility] Crisis Screener ([phone]) and Patrol Commander ([phone]) as soon as possible. In the event of elopement, notify [facility] Police ([phone]). Patient is currently voluntarily at [facility] and seeking inpatient admission when a bed becomes available. [facility] Frontline Central Supply Technician will continue seeking placement. Please contact the Patrol Commander ([phone]) and [facility] Central Supply Technician ([phone]) for any needed changes in the Safety Plan. Safety plan has been provided to interdepartmental care team.
--- NOTE | 2024-02-08 09:28 | PDOC.CMSAFE ---
Date of service: 02/08/24 Time of Service: 09:28 Care Management Safety Plan Status Status: Voluntary Reason for Wait Reason for Wait: Inpatient Admission and Assessment/Screening Safety Plan Safety Plan: VOLUNTARY FOR INPATIENT PSYCHIATRIC STABILIZATION.? Patient is appropriate in all interactions since arriving at [facility]; Pt has demonstrated appropriate coping and communication skills, has articulated his or her needs and concerns and is fully engaged during staff interactions. Safety plan has been established with patient, and care team, to adhere to patient goals, identify restrictions based on behavioral status, address nutrition, and determine allowed personal belongings, tools for hygiene and personal care. Determine level of activity including ambulation, level of supervision, visitors, and determine privileges based on behaviors and level of engagement by pt. VOLUNTARY SAFETY PLAN: 1. Will remain on suicide precautions, in paper clothes 2. Will remain in Zone B under direct supervision of one-on-one staff at all times provided by [employer]; [employer]SHA, ORDNANCE ARTIFICER HELPER business continuity management director. 3. May have paper cups, plates, finger foods as well as a cardboard spoon with which to eat meals. 4. Follow [facility] Management of the Admitted Behavioral Health Patient policy. 5. Shower available in Zone B without restriction. 6. Personal belongings-soft items permitted at RN discretion. 7. Visitors-none at this time. 8. Activities: soft cart items approved per RN discretion. 9.? Bathroom available in Zone B without restriction. 10. Phone: limited to [facility] cordless phone at RN discretion. Due to VOLUNTARY status, if patient wishes to leave [facility], staff will contact [facility] Crisis Screener ([phone]) and [place] Lab Technician ([phone]) as soon as possible. In the event of elopement, notify [facility] Police ([phone]). Patient is currently voluntarily at [facility] and seeking inpatient admission when a bed becomes available. [facility] Frontline Convention Services Director will continue seeking placement. Please contact the [place] Lab Technician ([phone]) and [facility] Convention Services Director ([phone]) for any needed changes in the Safety Plan. Safety plan has been provided to interdepartmental care team.
--- NOTE | 2024-02-08 11:03 | W.EDPROG ---
Date of service: 02/08/24 Time of Service: 11:04 Medical Decision Making Confirmed with [facility] chest worker that patient has not had an official screening since being here. They attempted to evaluate him but he refused to talk with them once he found out he was from mental health, apparently does not history of this due to his not having stable housing. They do not feel he meets the criteria so will recommend discharge with refills reasonable. I will provide him with a short course of prescription for his bupropion gabapentin and ziprasidone as he does not have access to these currently and advised that he needs to see part for his Suboxone. Will follow-up with his mental health workers and return precautions given Quality:SDOH Health Related Social Needs: No Data to Display Discharge Plan Disposition Patient Disposition: Home Condition: Stable Discharge Details Clinical Impression: Paranoid, Psychosis Primary Care Provider: Jef Balderas ED Provider: Brian Diehl Home Meds and New Rx's Prescriptions: Continued gabapentin 600 mg tablet 600 mg PO TID Qty: 30 0RF ziprasidone HCl [Geodon] 20 mg capsule 20 mg PO DAILY Qty: 10 1RF Rx Instructions: give with food (meal/snack) cephalexin 500 mg capsule 500 mg PO TID Qty: 15 0RF bupropion HCl 300 mg tablet extended release 24 hr 300 mg PO DAILY Qty: 10 1RF buprenorphine-naloxone [Suboxone] 12-3 mg film 2 film sublingual DAILY Patient Comments: PLACE TWO FILMS UNDER THE TONGUE EVERY DAY FOR 7 DAYS Discharge Instructions Additional Instructions: Please follow-up with your primary care provider or mental health workers, also follow-up with a provider that provides your Suboxone prescription If you feel more ill or feel you are suffering from an emergent medical process return to the emergency department for reevaluation
--- NOTE | 2024-02-08 14:55 | PDOC.MHCN ---
Date of service: 02/08/24 Time of Service: 10:20 Mental Health Emergency Note Release [facility] release signed:: No Reason for Visit Client reported that gang bangers are after him and he is scared for his life. In the last 2 weeks has the pt presented for ES prior to today?: No Client Information Well Housed: No,status: Homeless Non Suicidal Self Injury Current: No History: No Safety Risk/Harm to Self or Others Current Ideation to Harm Self or Others: Yes to others. Intent: No Plan: no, does not have a plan. Risk: Does risk to harm exist?: yes. Duty to warn indicated: Yes Substance Use: Do you use nicotine?: Yes Have you used substances in the last 7 days?: yes, Client shared that he is no currently SI, but is scared for his life as he has a chapin on his head. Impression Client refused [facility] services. Plan/Disposition Recommended Disposition: Other. Plan: Client refused [facility] services and demanded ES workers leave his room. Reports/communication Outcome discussed with: Other
== END 2024-02-08 13:12 | disposition home or self-care (01) ==
PROVIDERS: Emergency Medicine; Emergency Provider Emergency Medicine; PCP Physical Therapist
DX: F22 Delusional disorders (principal); F23 Brief psychotic disorder; F14.90 Cocaine use, unspecified, uncomplicated; F17.210 Nicotine dependence, cigarettes, uncomplicated
CPT/HCPCS: 00123; 36415; 80053; 80307; 87637; 93005; 99285; 80320; 80329; 85025; 93010

== ENCOUNTER 2024-02-08 22:43 | Emergency (ER) | payer MEDICAID, SELFPAY ==
[2024-02-08 22:44] VITALS: BP 135/109; PULSE 86; RESP 16; TEMP 36.7; O2SAT 98
[2024-02-09] MEDS: Acetaminophen 325 MG TAB 650 MG PO ×2 (01:11→09:58)
--- NOTE | 2024-02-09 01:17 | W.ED.GENAD ---
Discharge Plan Discharge Details Chief Complaint: PsychEval Clinical Impression: Suicide ideation Primary Care Provider: Jef Balderas ED Provider: Lissette Sharma Home Meds and New Rx's Prescriptions: No Action gabapentin 600 mg tablet 600 mg PO TID Qty: 30 0RF ziprasidone HCl [Geodon] 20 mg capsule 20 mg PO DAILY Qty: 10 1RF Rx Instructions: give with food (meal/snack) cephalexin 500 mg capsule 500 mg PO TID Qty: 15 0RF bupropion HCl 300 mg tablet extended release 24 hr 300 mg PO DAILY Qty: 10 1RF buprenorphine-naloxone [Suboxone] 12-3 mg film 2 film sublingual DAILY Patient Comments: PLACE TWO FILMS UNDER THE TONGUE EVERY DAY FOR 7 DAYS HPI General Date/Time Provider Initiated Documentation: 02/08/24 22:45. HPI Narrative: 53yo M with hx schizoaffective disorder presenting via EMS for SI. Seen in this ED recently for same and discharged earlier in the evening after refusing to speak with mental health. Hears voices telling him that they are going to kill him and that he will come back as the devil. The voices are not telling him to harm himself or anyone else. He became scared while walking outside in the cold and dark and was worried someone was going to hurt him. States he wants to end his life; no specific plan. Denies any attempts, any ingestions, or any drug use today. Also reports persistent visual hallucinations, primarily people he knows appearing in 'flashes' and then disappearing. These auditory and visual hallucinations have been present for a long time and have not changed. Suicidality has also been present for a long time and is not worse today. Only thing new this evening is being increasingly scared and cold outside. He does report that he is now willing to speak to mental health [facility]. Related Data Home Medications ?Medication ?Instructions ?Recorded ?Confirmed buprenorphine 12 mg-naloxone 3 mg 2 film sublingual DAILY 09/22/22 02/08/24 sublingual film (Suboxone) bupropion HCl 300 mg 24 hr tablet, 300 mg PO DAILY #10 tabs 02/08/24 02/08/24 extended release cephalexin 500 mg capsule 500 mg PO TID #15 caps 02/08/24 02/08/24 gabapentin 600 mg tablet 600 mg PO TID #30 tabs 02/08/24 02/08/24 ziprasidone HCl 20 mg capsule 20 mg PO DAILY #10 caps 02/08/24 02/08/24 (Compa) Previous Rx's ?Medication ?Instructions ?Recorded bupropion HCl 300 mg 24 hr tablet, 300 mg PO DAILY #10 tabs 02/08/24 extended release cephalexin 500 mg capsule 500 mg PO TID #15 caps 02/08/24 gabapentin 600 mg tablet 600 mg PO TID #30 tabs 02/08/24 ziprasidone HCl 20 mg capsule 20 mg PO DAILY #10 caps 02/08/24 (Compa) Allergies Allergy/AdvReac Type Severity Reaction Status Date / Time onion Allergy Intermediate Hives Verified 02/07/24 02:09 naproxen Allergy Mild Unknown Verified 02/07/24 02:09 Sulfa (Sulfonamide Allergy Unknown Unknown Verified 02/07/24 02:09 Antibiotics) General Stated Complaint: PsychEval CHUYITA: 2 Review of Systems Narrative: see HPI Exam Narrative Exam Narrative: General: Alert, well appearing, well nourished Head: Normocephalic, atraumatic Neck: Trachea midline, ?Neck supple. Cardiac: ?RRR, no murmurs appreciated Resp: No respiratory distress. CTAB. Abd: ?Non-distended Extremities: ?No deformities.? Neurologic: GCS 15. ? Moves all extremities freely against gravity Psych: Agitated, verbally redirectable. Well groomed.? Mood how do you fucking think?.? Speech with normal volume, rate, rythym and tone. Linear and goal directed.? +SI, no plan. Denies HI/AH/VH. ? Does not appear to be responding to internal stimuli. Course Vital Signs Vital signs: Vital Signs Temperature 36.7 C 02/08/24 22:44 Pulse 86 02/08/24 22:44 Respiratory Rate 16 02/08/24 22:44 Blood Pressure 135/109 H 02/08/24 22:44 Pulse Oximetry 98 02/08/24 22:44 Temperature 36.7 C 02/08/24 22:44 Temperature Source Temporal Artery Scan 02/08/24 22:44 Pulse 86 02/08/24 22:44 Respiratory Rate 16 02/08/24 22:44 Blood Pressure 135/109 H 02/08/24 22:44 Blood Pressure Position Supine 02/08/24 22:44 Pulse Oximetry 98 02/08/24 22:44 Oxygen Delivery Method Room Air 02/08/24 22:44 Oxygen Flow Rate 0 02/08/24 22:44 Pain Level 10 02/08/24 22:44 Medical Decision Making 53yo M with hx schizoaffective disorder presenting via EMS for SI (no plan) as well as AH & VH. Denies HI or command hallucinations. Seen in this ED recently for same and discharged earlier in the evening after refusing to speak with mental health. No change in his level of suicidality or his hallucinations since then; only thing new this evening is being increasingly scared and cold outside. He does report that he is now willing to speak to mental health tonight. Medically cleared via SMART tool, home meds ordered. [facility] evaluated patient; I spoke with Perfecto from [facility] who states that [facility] had evaluated patient and was sending referrals. Will be signed out to oncoming physician, patient pending voluntary inpatient placement. 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 -hb Psychosis (Acute) 06/08/2022. [facility] ED Paranoid (Acute) IV drug abuse (Chronic) Herniated disc (Acute) Low back pain (Acute) Medication side effects (Acute) Screening for hyperlipidemia (Acute) Elevated liver enzymes (Acute) Medical History Bipolar disorder Hepatitis C s/p treatment with interferon Paranoid ideation ADHD Depression Anxiety Surgical History Presence of surgical screw in left hand History of surgery on arm S/P right rotator cuff repair Family History Mother Heart disease Father Diabetes Brother Diabetes Hypertension Cancer pancreatic, liver and lung Brother Diabetes Brother Diabetes Sister Cancer pancreatic cancer Social History Smoking/Tobacco Use Status: Current every day Tobacco Type: cigarettes Smoking risk assessment performed?: Yes Alcohol Intake: current Alcohol Intake frequency: a few times a week Alcohol type: beer Drug use: Daily Substance use type: marijuana and crack/cocaine Details: Unclear what substances pt is using on a daily basis 02/07/24 Housing: homeless Do you feel safe at home: Yes Do you feel safe in your relationship?: Yes
[2024-02-09] MEDS: Buprenorphine/Naloxone 12 mg/3 mg FILM 2 EACH SL (08:24)
[2024-02-09] MEDS: buPROPion-XL 150 MG TABCR 300 MG PO (08:24)
[2024-02-09] MEDS: Ziprasidone 20 MG CAP PO (08:25)
[2024-02-09] MEDS: Gabapentin 300 MG CAP 600 MG PO ×3 (08:25→13:23)
--- NOTE | 2024-02-09 12:55 | CMPROGNOTE_ITS ---
Date of service: 02/09/24 Time of Service: 12:55 Care Management Progress Note Progress Note Text Progress Note Text: CM huddled with staff regarding [place]'s plan of care, including RN, VARSHA, [facility] clinician and RN ground wood supervisor. [place] has been able to be redirected, as he has had periods of agitation toward staff. Per report, he is experiencing paranoia and auditory hallucinations. Per [facility], he is agreeable to inpatient psychiatric treatment, and he is being considered at [facility] and [facility]. This afternoon he was accepted at [facility], and will transport via [facility]. Safety plan is in place while awaiting transport. CM will continue to follow. Social Determinants of Health Screening Will the Patient Participate in the Screening?: Declined to provide
--- NOTE | 2024-02-09 12:55 | CMSP_ITS ---
Date of service: 02/09/24 Time of Service: 12:55 Care Management Safety Plan Status Status: Voluntary Reason for Wait Reason for Wait: Inpatient Admission Safety Plan Safety Plan: VOLUNTARY FOR INPATIENT PSYCHIATRIC STABILIZATION.? Patient is appropriate in all interactions since arriving at [facility]; Pt has demonstrated appropriate coping and communication skills, has articulated his or her needs and concerns and is fully engaged during staff interactions. Safety plan has been established with patient, and care team, to adhere to patient goals, identify restrictions based on behavioral status, address nutrition, and determine allowed personal belongings, tools for hygiene and personal care. Determine level of activity including ambulation, level of supervision, visitors, and determine privileges based on behaviors and level of engagement by pt. VOLUNTARY SAFETY PLAN: 1. Will remain on suicide precautions, in paper clothes 2. Will remain in Zone B under direct supervision of one-on-one staff at all times provided by [employer]; VARSHA, PUNCH PRESS OPERATOR printing estimator. 3. May have paper cups, plates, finger foods as well as a cardboard spoon with which to eat meals. 4. Follow [facility] Management of the Admitted Behavioral Health Patient policy. 5. Shower available in Zone B without restriction. 6. Personal belongings-soft items permitted at RN discretion. 7. Visitors-none at this time. 8. Activities: soft cart items approved per RN discretion. 9.? Bathroom available in Zone B without restriction. 10. Phone: limited to [facility] cordless phone at RN discretion. Due to VOLUNTARY status, if patient wishes to leave [facility], staff will contact [facility] Crisis Screener ([phone]) and [employer] Driver ([phone]) as soon as possible. In the event of elopement, notify [facility] Police ([phone]). Patient is currently voluntarily at [facility] and seeking inpatient admission when a bed becomes available. [facility] Frontline Travel Rn Or will continue seeking p lacement. Please contact the [employer] Driver ([phone]) and [facility] Travel Rn Or ([phone]) for any needed changes in the Safety Plan. Safety plan has been provided to interdepartmental care team.
--- NOTE | 2024-02-09 12:55 | PDOC.CMSAFE ---
Date of service: 02/09/24 Time of Service: 12:55 Care Management Safety Plan Status Status: Voluntary Reason for Wait Reason for Wait: Inpatient Admission Safety Plan Safety Plan: VOLUNTARY FOR INPATIENT PSYCHIATRIC STABILIZATION.? Patient is appropriate in all interactions since arriving at [facility]; Pt has demonstrated appropriate coping and communication skills, has articulated his or her needs and concerns and is fully engaged during staff interactions. Safety plan has been established with patient, and care team, to adhere to patient goals, identify restrictions based on behavioral status, address nutrition, and determine allowed personal belongings, tools for hygiene and personal care. Determine level of activity including ambulation, level of supervision, visitors, and determine privileges based on behaviors and level of engagement by pt. VOLUNTARY SAFETY PLAN: 1. Will remain on suicide precautions, in paper clothes 2. Will remain in Zone B under direct supervision of one-on-one staff at all times provided by [employer]; VARSHA, CLOSING MANAGER head baggage porter. 3. May have paper cups, plates, finger foods as well as a cardboard spoon with which to eat meals. 4. Follow [facility] Management of the Admitted Behavioral Health Patient policy. 5. Shower available in Zone B without restriction. 6. Personal belongings-soft items permitted at RN discretion. 7. Visitors-none at this time. 8. Activities: soft cart items approved per RN discretion. 9.? Bathroom available in Zone B without restriction. 10. Phone: limited to [facility] cordless phone at RN discretion. Due to VOLUNTARY status, if patient wishes to leave [facility], staff will contact [facility] Crisis Screener ([phone]) and [employer] ([phone]) as soon as possible. In the event of elopement, notify [facility] Police ([phone]). Patient is currently voluntarily at [facility] and seeking inpatient admission when a bed becomes available. [facility] Frontline Environmental Marketing Representative will continue seeking placement. Please contact the [employer] ([phone]) and [facility] Environmental Marketing Representative ([phone]) for any needed changes in the Safety Plan. Safety plan has been provided to interdepartmental care team.
--- NOTE | 2024-02-09 12:55 | PDOC.CMPRO ---
Date of service: 02/09/24 Time of Service: 12:55 Care Management Progress Note Progress Note Text Progress Note Text: CM huddled with staff regarding [place]'s plan of care, including RN, VARSHA, [facility] clinician and RN supervisor waterworks. [place] has been able to be redirected, as he has had periods of agitation toward staff. Per report, he is experiencing paranoia and auditory hallucinations. Per [facility], he is agreeable to inpatient psychiatric treatment, and he is being considered at [facility] and [facility]. This afternoon he was accepted at [facility], and will transport via [facility]. Safety plan is in place while awaiting transport. CM will continue to follow. Social Determinants of Health Screening Will the Patient Participate in the Screening?: Declined to provide
--- NOTE | 2024-02-09 15:06 | ED.PROG_ITS ---
Date of service: 02/09/24 Time of Service: 15:07 Medical Decision Making Care signed out by Dr. Sharma, please see her documentation regarding initial ED presentation course. Plan at signout was to await psychiatric treatment facility placement. Patient noted to be medically clear at time of signout. I spoke with nurse practitioner at [facility], discussed ED presentation and course, she will accept the patient in transfer. She did question reason for cephalexin. I reviewed medical record and identified the patient was started on cephalexin for axillary abscess on 02/05/2024 with plan to continue for 5 days. I examined the patient's right axilla. There is a small healing abscess/pimple that does not have significant erythema or fluctuance. Patient notes it has improved with antibiotics. No indication for incision and drainage. I will recommend that Keflex be continued for another 2 days to complete course. Axilla should be monitored for any worsening/recurrent infection. Quality:[facility] Health Related Social Needs: No Data to Display Discharge Plan Disposition Patient Disposition: Psychiatric Hospital/Unit Specific Psychiatric Facility: [facility] Condition: Stable Discharge Details Clinical Impression: Suicide ideation, Abscess of right axilla Primary Care Provider: Jef Balderas ED Provider: Miguel Duarte [place] Meds and New Rx's Prescriptions: Continued gabapentin 600 mg tablet 600 mg PO TID Qty: 30 0RF ziprasidone HCl [Geodon] 20 mg capsule 20 mg PO DAILY Qty: 10 1RF Rx Instructions: give with food (meal/snack) cephalexin 500 mg capsule 500 mg PO TID Qty: 15 0RF bupropion HCl 300 mg tablet extended release 24 hr 300 mg PO DAILY Qty: 10 1RF buprenorphine-naloxone [Suboxone] 12-3 mg film 2 film sublingual DAILY Patient Comments: PLACE TWO FILMS UNDER THE TONGUE EVERY DAY FOR 7 DAYS
[2024-02-09] MEDS: Cephalexin 500 MG CAP PO (15:17)
== END 2024-02-09 15:30 ==
PROVIDERS: Emergency Provider Student in an Organized Health Care Education/Training Program; PCP Physical Therapist
DX: R45.851 Suicidal ideations (principal); F25.9 Schizoaffective disorder, unspecified; R44.3 Hallucinations, unspecified; L02.411 Cutaneous abscess of right axilla
CPT/HCPCS: 00123; 99285

== ENCOUNTER 2024-02-23 16:25 | Emergency (ER) | payer MEDICAID, SELFPAY ==
[2024-02-23 16:26] VITALS: BP 136/90; PULSE 86; RESP 16; TEMP 36.2; O2SAT 96
[2024-02-23] MEDS: Gabapentin 300 MG CAP 600 MG PO (17:20)
[2024-02-23] MEDS: Cyclobenzaprine 10 MG TAB 5 MG PO (17:20)
--- NOTE | 2024-02-23 23:00 | W.ED.GENAD ---
Discharge Plan Disposition Patient Disposition: Home Condition: Stable Discharge Details Clinical Impression: Chronic pain, Depression Primary Care Provider: Jef Balderas ED Provider: Mavis Jaeger Home Meds and New Rx's Prescriptions: New ziprasidone HCl [Geodon] 40 mg capsule 40 mg PO BID Qty: 4 0RF Rx Instructions: give with food (meal/snack) gabapentin [Neurontin] 600 mg tablet 600 mg PO TID Qty: 6 0RF cyclobenzaprine 5 mg tablet 5 mg PO TID Qty: 6 0RF Continued ibuprofen 600 mg tablet 600 mg PO Q6H PRN acetaminophen 500 mg tablet 1,000 mg PO Q6H PRN cyclobenzaprine 5 mg tablet 5 mg PO Q8H PRN Patient Comments: need rx gabapentin 300 mg capsule 300 mg PO DAILY Patient Comments: needs rx meloxicam 7.5 mg tablet 15 mg PO DAILY Patient Comments: needs rx omeprazole 20 mg capsule,delayed release(DR/EC) 20 mg PO DAILY diclofenac sodium 1 % gel 2 g topical QID ziprasidone HCl 40 mg capsule 40 mg PO DAILY Patient Comments: needs rx Rx Instructions: give with food (meal/snack) gabapentin 600 mg tablet 600 mg PO TID Qty: 30 0RF Patient Comments: needs rx bupropion HCl 300 mg tablet extended release 24 hr 300 mg PO DAILY Qty: 10 1RF Patient Comments: needs rx buprenorphine-naloxone [Suboxone] 12-3 mg film 2 film sublingual DAILY Patient Comments: PLACE TWO FILMS UNDER THE TONGUE EVERY DAY FOR 7 DAYS Discharge Instructions Additional Instructions: Please follow-up with your primary care doctor regarding refills on your medications I supplied you with 2 days worth of the medications requested Please return earlier should you have new or worsening complaints Referrals: Jef Balderas [Primary Care Provider] - 1 day Discharge Data Discharge Date/Time-TO BE ENTERED AT DEPARTURE: 02/23/24 17:33 HPI General Date/Time Provider Initiated Documentation: 02/23/24 16:39. HPI Narrative: This 53-year-old male with history of suicidal ideation, major depressive disorder, methamphetamine abuse presents after being discharged from [facility] missing his medications, zonisamide, Flexeril, and Neurontin. He states that his doctor is going to refill these prescriptions on Monday, however he is in a lot of pain and would like to take his mental health medications. He denies any new complaints at this time and feels like he is safe for discharge home he would just like his prescriptions for Monday and Monday. Denies any fever, chills, chest pain, shortness of breath, auditory visual hallucinations. Related Data Home Medications ?Medication ?Instructions ?Recorded ?Confirmed buprenorphine 12 mg-naloxone 3 mg 2 film sublingual DAILY 09/22/22 02/23/24 sublingual film (Suboxone) bupropion HCl 300 mg 24 hr tablet, 300 mg PO DAILY #10 tabs 02/08/24 02/23/24 extended release gabapentin 600 mg tablet 600 mg PO TID #30 tabs 02/08/24 02/23/24 acetaminophen 500 mg tablet 1,000 mg PO Q6H PRN 02/20/24 02/23/24 cyclobenzaprine 5 mg tablet 5 mg PO Q8H PRN 02/20/24 02/23/24 diclofenac sodium 1 % topical gel 2 g topical QID 02/20/24 02/23/24 gabapentin 300 mg capsule 300 mg PO DAILY 02/20/24 02/23/24 ibuprofen 600 mg tablet 600 mg PO Q6H PRN 02/20/24 02/23/24 meloxicam 7.5 mg tablet 15 mg PO DAILY 02/20/24 02/23/24 omeprazole 20 mg capsule,delayed 20 mg PO DAILY 02/20/24 02/23/24 release ziprasidone HCl 40 mg capsule 40 mg PO DAILY 02/20/24 02/23/24 cyclobenzaprine 5 mg tablet 5 mg PO TID #6 tabs 02/23/24 gabapentin 600 mg tablet 600 mg PO TID #6 tabs 02/23/24 (Neurontin) ziprasidone HCl 40 mg capsule 40 mg PO BID #4 caps 02/23/24 (Geodon) Previous Rx's ?Medication ?Instructions ?Recorded bupropion HCl 300 mg 24 hr tablet, 300 mg PO DAILY #10 tabs 02/08/24 extended release gabapentin 600 mg tablet 600 mg PO TID #30 tabs 02/08/24 cyclobenzaprine 5 mg tablet 5 mg PO TID #6 tabs 02/23/24 gabapentin 600 mg tablet 600 mg PO TID #6 tabs 02/23/24 (Neurontin) ziprasidone HCl 40 mg capsule 40 mg PO BID #4 caps 02/23/24 (Geodon) Allergies Allergy/AdvReac Type Severity Reaction Status Date / Time onion Allergy Intermediate Hives Verified 02/23/24 16:36 naproxen Allergy Mild Unknown Verified 02/23/24 16:36 Sulfa (Sulfonamide Allergy Unknown Unknown Verified 02/23/24 16:36 Antibiotics) General Stated Complaint: Orthopedic CHUYITA: 4 Exam Narrative Exam Narrative: Alert and oriented anxious male in no acute distress. I reviewed patient's PDMP and patient has Suboxone but no other months ordered. Neurontin zonisamide and Flexeril were supplied for the next 2 days. He was given a dose in the emergency department. Patient denies any additional complaints at this time and was discharged home in stable condition with stable vitals. Course Vital Signs Vital signs: Vital Signs Temperature 36.2 C L 02/23/24 16:26 Pulse 86 02/23/24 16:26 Respiratory Rate 16 02/23/24 16:26 Blood Pressure 136/90 02/23/24 16:26 Pulse Oximetry 96 02/23/24 16:26 Temperature 36.2 C L 02/23/24 16:26 Temperature Source Oral 02/23/24 16:26 Pulse 86 02/23/24 16:26 Respiratory Rate 16 02/23/24 16:26 Blood Pressure 136/90 02/23/24 16:26 Blood Pressure Position Sitting 02/23/24 16:26 Pulse Oximetry 96 02/23/24 16:26 Oxygen Delivery Method Room Air 02/23/24 16:26 Oxygen Flow Rate 0 02/23/24 16:26 Pain Level 10 02/23/24 16:26 Medical Decision Making Quality:SDOH Health Related Social Needs: No Data to Display PFSH All Active Problems (Updated 02/23/24 @ 17:16 by BECKIE Soto) Depression (Chronic) Chronic pain (Chronic) Major depressive disorder, recurrent episode, severe (Acute) [facility] Abscess of right axilla (Acute) Suicide ideation (Acute) Axillary abscess (Acute) Right hip pain (Acute) Right knee pain (Acute) Methamphetamine use (Acute) 06/08/22 Per [facility]. -hb Psychosis (Acute) 06/08/2022. [facility] Paranoid (Acute) IV drug abuse (Chronic) Herniated disc (Acute) Low back pain (Acute) Medication side effects (Acute) Screening for hyperlipidemia (Acute) Elevated liver enzymes (Acute) Medical History Bipolar disorder Hepatitis C s/p treatment with interferon Paranoid ideation ADHD Depression Anxiety Surgical History Presence of surgical screw in left hand History of surgery on arm S/P right rotator cuff repair Family History Mother Heart disease Father Diabetes Brother Diabetes Hypertension Cancer pancreatic, liver and lung Brother Diabetes Brother Diabetes Sister Cancer pancreatic cancer Social History (Updated 02/16/24 @ 10:30 by Rowan Basurto) Smoking/Tobacco Use Status: Current-Occasional Tobacco Type: cigarettes Quit status: considering quitting Second Hand Exposure: Yes Smoking risk assessment performed?: Yes Alcohol Intake: never Drug use: Never Substance use type: does not use, marijuana and crack/cocaine Details: Unclear what substances pt is using on a daily basis 02/07/24 Adopted: No Household members: other Details: girlfriend Housing: homeless Communication Needs: Hard of Hearing Education Level: master's degree Do you need help understanding health information?: Often 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 Pets and animals: No Sexually active: Yes Do you think of yourself as: straight/heterosexual Current gender identity: male What is your relationship status?: living with partner How often do you talk on the phone with friends or family?: once per week How often do you get together with friends or relatives?: twice per week Panel score (0-1 are the most socially isolated patients): 2 What type of physical activity do you participate in: regular exercise Duration: 45-60 minutes/day Frequency: 5-6 times per week Mihaela/Jainism: Religious Special mihaela needs: No Seatbelt use: always Helmet use: Yes Drive intox or ride w/intox emergency medical technician/driver: No Do you feel safe at home: Yes Do you feel safe in your relationship?: Yes
--- NOTE | 2024-02-24 14:48 | CMACTNOTE_ITS ---
Date of service: 02/24/24 Time of Service: 14:48 Care Management Activity Note Activity Note Text Activity Note Text: Was called by the ER to consult with Montana. Montana was discharged from [facility] earlier this week. He was discharged to a sober home. He stated that he was given medications from [facility] to take home with him, and he placed them in a early intervention school psychologist his room. When he went to retrieve them, they were missing. Montana stated that he takes gabapentin, subutex, wellbutrin and meloxicam. He stated that [facility] will be giving him a new supply on Monday, but until then he has no meds. MARCIN discussed the case with the ER provider. She is unable to prescribe subutex, but Montana received the meds here, and is going home with dosing for tomorrow, excluding the subutex, and he can refill with [facility] on Monday. MARCIN discussed this with Montana. This was an agreeable plan for him.
== END 2024-02-23 17:33 | disposition home or self-care (01) ==
PROVIDERS: Emergency Provider Physician Assistant; PCP Physical Therapist
DX: F32.A Depression, unspecified (principal); M79.604 Pain in right leg; G89.29 Other chronic pain
CPT/HCPCS: 99283; 99284

== ENCOUNTER 2024-02-24 13:28 | Emergency (ER) | payer MEDICAID, SELFPAY ==
[2024-02-24 13:31] VITALS: BP 142/93; PULSE 86; RESP 18; TEMP 36.4; O2SAT 97
--- NOTE | 2024-02-24 14:12 | W.ED.GENAD ---
Discharge Plan Disposition Patient Disposition: Home Discharge Details Clinical Impression: Medical care complication Primary Care Provider: Jef Balderas ED Provider: Sonia Finch Home Meds and New Rx's Prescriptions: No Action ibuprofen 600 mg tablet 600 mg PO Q6H PRN acetaminophen 500 mg tablet 1,000 mg PO Q6H PRN cyclobenzaprine 5 mg tablet 5 mg PO Q8H PRN Patient Comments: need rx gabapentin 300 mg capsule 300 mg PO DAILY Patient Comments: needs rx meloxicam 7.5 mg tablet 15 mg PO DAILY Patient Comments: needs rx omeprazole 20 mg capsule,delayed release(DR/EC) 20 mg PO DAILY diclofenac sodium 1 % gel 2 g topical QID ziprasidone HCl 40 mg capsule 40 mg PO DAILY Patient Comments: needs rx Rx Instructions: give with food (meal/snack) gabapentin 600 mg tablet 600 mg PO TID Qty: 30 0RF Patient Comments: needs rx bupropion HCl 300 mg tablet extended release 24 hr 300 mg PO DAILY Qty: 10 1RF Patient Comments: needs rx ziprasidone HCl [Geodon] 40 mg capsule 40 mg PO BID Qty: 4 0RF Rx Instructions: give with food (meal/snack) gabapentin [Neurontin] 600 mg tablet 600 mg PO TID Qty: 6 0RF cyclobenzaprine 5 mg tablet 5 mg PO TID Qty: 6 0RF buprenorphine-naloxone [Suboxone] 12-3 mg film 2 film sublingual DAILY Patient Comments: PLACE TWO FILMS UNDER THE TONGUE EVERY DAY FOR 7 DAYS Discharge Instructions Additional Instructions: You have stated that you have are unable to shredder picker your prescriptions from the pharmacy until Monday which at that point your insurance will cover them You were provided a single dose of your medication today and a take-home dose for you to take tomorrow. After that you should be able to shredder picker your prescriptions from the pharmacy on Monday. Care management has been involved. We recommend that you also follow-up with the other community resources that you have been provided. HPI General Date/Time Provider Initiated Documentation: 02/24/24 13:30. Limitations to Documentation: no limitations. Information obtained by: patient. HPI Narrative: 53-year-old gentleman with past medical history of major depression, opiate use disorder, chronic pain presents for evaluation seeking medications. He states he was recently discharged from [facility]. He came to the emergency department yesterday and was given new prescriptions, and prescriptions were sent to the pharmacy however he is not able to shredder picker the prescriptions because he states that his insurance will not cover them until Monday. So he is here today requesting medications. Related Data Home Medications ?Medication ?Instructions ?Recorded ?Confirmed buprenorphine 12 mg-naloxone 3 mg 2 film sublingual DAILY 09/22/22 02/24/24 sublingual film (Suboxone) bupropion HCl 300 mg 24 hr tablet, 300 mg PO DAILY #10 tabs 02/08/24 02/24/24 extended release gabapentin 600 mg tablet 600 mg PO TID #30 tabs 02/08/24 02/24/24 acetaminophen 500 mg tablet 1,000 mg PO Q6H PRN 02/20/24 02/24/24 cyclobenzaprine 5 mg tablet 5 mg PO Q8H PRN 02/20/24 02/24/24 diclofenac sodium 1 % topical gel 2 g topical QID 02/20/24 02/24/24 gabapentin 300 mg capsule 300 mg PO DAILY 02/20/24 02/24/24 ibuprofen 600 mg tablet 600 mg PO Q6H PRN 02/20/24 02/24/24 meloxicam 7.5 mg tablet 15 mg PO DAILY 02/20/24 02/24/24 omeprazole 20 mg capsule,delayed 20 mg PO DAILY 02/20/24 02/24/24 release ziprasidone HCl 40 mg capsule 40 mg PO DAILY 02/20/24 02/24/24 cyclobenzaprine 5 mg tablet 5 mg PO TID #6 tabs 02/23/24 02/24/24 gabapentin 600 mg tablet 600 mg PO TID #6 tabs 02/23/24 02/24/24 (Neurontin) ziprasidone HCl 40 mg capsule 40 mg PO BID #4 caps 02/23/24 02/24/24 (Geodon) Previous Rx's ?Medication ?Instructions ?Recorded bupropion HCl 300 mg 24 hr tablet, 300 mg PO DAILY #10 tabs 02/08/24 extended release gabapentin 600 mg tablet 600 mg PO TID #30 tabs 02/08/24 cyclobenzaprine 5 mg tablet 5 mg PO TID #6 tabs 02/23/24 gabapentin 600 mg tablet 600 mg PO TID #6 tabs 02/23/24 (Neurontin) ziprasidone HCl 40 mg capsule 40 mg PO BID #4 caps 02/23/24 (Geodon) Allergies Allergy/AdvReac Type Severity Reaction Status Date / Time onion Allergy Intermediate Hives Verified 02/24/24 13:34 naproxen Allergy Mild Unknown Verified 02/24/24 13:34 Sulfa (Sulfonamide Allergy Unknown Unknown Verified 02/24/24 13:34 Antibiotics) General Stated Complaint: Recheck CHUYITA: 4 Exam Narrative Exam Narrative: Review of Systems: All systems reviewed & are unremarkable except as noted in HPI and below Well-developed, no acute distress NCAT RRR Unlabored respiratory effort Appropriate mood and affect Course Vital Signs Vital signs: Vital Signs Temperature 36.4 C 02/24/24 13:31 Pulse 86 02/24/24 13:31 Respiratory Rate 18 02/24/24 13:31 Blood Pressure 142/93 H 02/24/24 13:31 Pulse Oximetry 97 02/24/24 13:31 Temperature 36.4 C 02/24/24 13:31 Pulse 86 02/24/24 13:31 Respiratory Rate 18 02/24/24 13:31 Blood Pressure 142/93 H 02/24/24 13:31 Pulse Oximetry 97 02/24/24 13:31 Medical Decision Making Evaluation for medication refill. The patient has not been able to get his medications since leaving [facility] because of some insurance issues. At this time he has no acute emergent complaints, other than his chronic issues. He was given a dose of medications for today as well as a take-home dose of his medications for tomorrow. I have not given him the Flexeril. I will give him a single dose of buprenorphine today. He has multiple community resources to follow-up with. And case management has been notified to get involved regarding his insurance issues. Quality:SDOH Health Related Social Needs: No Data to Display PFSH All Active Problems Medical care complication (Acute) Depression (Chronic) Chronic pain (Chronic) Major depressive disorder, recurrent episode, severe (Acute) 02/19/24 [facility] note Abscess of right axilla (Acute) Suicide ideation (Acute) Axillary abscess (Acute) Right hip pain (Acute) Right knee pain (Acute) 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 -hb Psychosis (Acute) 06/08/2022. [facility] Paranoid (Acute) IV drug abuse (Chronic) Herniated disc (Acute) Low back pain (Acute) Medication side effects (Acute) Screening for hyperlipidemia (Acute) Elevated liver enzymes (Acute) Medical History Bipolar disorder Hepatitis C s/p treatment with interferon Paranoid ideation ADHD Depression Anxiety Surgical History Presence of surgical screw in left hand History of surgery on arm S/P right rotator cuff repair Family History Mother Heart disease Father Diabetes Brother Diabetes Hypertension Cancer pancreatic, liver and lung Brother Diabetes Brother Diabetes Sister Cancer pancreatic cancer Social History Smoking/Tobacco Use Status: Current-Occasional Tobacco Type: cigarettes Quit status: considering quitting Second Hand Exposure: Yes Smoking risk assessment performed?: Yes Alcohol Intake: never Drug use: Never Substance use type: does not use, marijuana and crack/cocaine Details: Unclear what substances pt is using on a daily basis 02/07/24 Adopted: No Household members: other Details: girlfriend Housing: homeless Communication Needs: Hard of Hearing Education Level: master's degree Do you need help understanding health information?: Often 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 Pets and animals: No Sexually active: Yes Do you think of yourself as: straight/heterosexual Current gender identity: male What is your relationship status?: living with partner How often do you talk on the phone with friends or family?: once per week How often do you get together with friends or relatives?: twice per week Panel score (0-1 are the most socially isolated patients): 2 What type of physical activity do you participate in: regular exercise Duration: 45-60 minutes/day Frequency: 5-6 times per week Mihaela/Uatsdin: Voodoo Special mihaela needs: No Seatbelt use: always Helmet use: Yes Drive intox or ride w/intox driver examiner: No Do you feel safe at home: Yes Do you feel safe in your relationship?: Yes
[2024-02-24] MEDS: Meloxicam 15 MG TAB PO ×2 (14:48)
[2024-02-24] MEDS: Buprenorphine/Naloxone 12 mg/3 mg FILM 1 EACH SL (14:48)
[2024-02-24] MEDS: Gabapentin 300 MG CAP PO ×2 (14:48)
== END 2024-02-24 14:54 | disposition home or self-care (01) ==
PROVIDERS: Emergency Provider Emergency Medicine; PCP Physical Therapist
DX: Z76.0 Encounter for issue of repeat prescription (principal)
CPT/HCPCS: 99281; 99282

== ENCOUNTER 2024-04-09 12:05 | Emergency (ER) | payer MEDICAID, SELFPAY ==
[2024-04-09 12:14] VITALS: BP 139/72; PULSE 77; RESP 15; TEMP 36.2; O2SAT 98
--- NOTE | 2024-04-09 12:26 | ED.GENADUL_ITS ---
Discharge Plan Disposition Patient Disposition: Home Condition: Stable Discharge Details Clinical Impression: Lumbar back pain Primary Care Provider: Jef Balderas ED Provider: Dimas Bolaños Home Meds and New Rx's Prescriptions: New prednisone 20 mg tablet 40 mg PO DAILY 5 Days Qty: 10 0RF Rx Instructions: Start on day 2 - 04/10/2024 methocarbamol 750 mg tablet 750 mg PO QID 7 Days Qty: 28 0RF Continued ibuprofen 600 mg tablet 600 mg PO Q6H PRN acetaminophen 500 mg tablet 1,000 mg PO Q6H PRN cyclobenzaprine 5 mg tablet 5 mg PO Q8H PRN Patient Comments: need rx gabapentin 300 mg capsule 300 mg PO DAILY Patient Comments: needs rx meloxicam 7.5 mg tablet 15 mg PO DAILY Patient Comments: needs rx omeprazole 20 mg capsule,delayed release(DR/EC) 20 mg PO DAILY diclofenac sodium 1 % gel 2 g topical QID ziprasidone HCl 40 mg capsule 40 mg PO DAILY Patient Comments: needs rx Rx Instructions: give with food (meal/snack) gabapentin 600 mg tablet 600 mg PO TID Qty: 30 0RF Patient Comments: needs rx bupropion HCl 300 mg tablet extended release 24 hr 300 mg PO DAILY Qty: 10 1RF Patient Comments: needs rx ziprasidone HCl [Geodon] 40 mg capsule 40 mg PO BID Qty: 4 0RF Rx Instructions: give with food (meal/snack) gabapentin [Neurontin] 600 mg tablet 600 mg PO TID Qty: 6 0RF cyclobenzaprine 5 mg tablet 5 mg PO TID Qty: 6 0RF buprenorphine-naloxone [Suboxone] 12-3 mg film 2 film sublingual DAILY Patient Comments: PLACE TWO FILMS UNDER THE TONGUE EVERY DAY FOR 7 DAYS Discharge Instructions Instructions: Ganglion cyst, Low Back Pain ED Additional Instructions: You were seen in the emergency department for your lumbar back pain, you have a history of disc herniation and back pain, your blood work shows no evidence of infection and your inflammatory markers, CRP/ESR are normal which are normally significantly elevated in infections. You are neurovascularly intact in bilateral lower extremities, I do not think that you have any spinal epidural abscess present at this time, please treat with the prescription muscle relaxer methocarbamol I have sent as well as a burst of prednisone. Please use therapeutic dosing of Tylenol (acetamenophen) & Advil (ibuprofen) in an alternating fashion as follows: Take 1000mg of Tylenol every 6 hours without missing doses- that is 4 times per day. Dickinson in between the Tylenol dosings, take 400-600mg of Advil also on a 6 hour schedule, that is also 4 times per day. The daily maximum dosing of Tylenol is 4000mg, and the daily maximum dosing of Advil is 2400mg. This is safe to do for weeks. Please note that some common cold medications & prescription pain medications may contain acetamenophen and you need to read OTC drug labels and factor that in to maximum daily dosings. Use an [id number] lidocaine patch to the area of pain each day for 12 hours, I recommend this at night to help you sleep. Please obtain [id number] Voltaren gel apply to area of pain 2-3 times daily for pain relief. Please return to the emergency department for progressive weakness of the legs, urinary retention, loss of bowel underpants without noticing, back pain with fever. The swelling of your hand is likely a ganglion cyst, please follow-up with orthopedics for possible elective removal of this cyst. Stand Alone Forms: Physical Therapy Referral Referrals: [facility] [Provider Group] Jef Balderas [Primary Care Provider] - [facility] General Date/Time Provider Initiated Documentation: 04/09/24 12:09 . [facility] Narrative: 53 year-old male presents to ED today by POV/ambulating with a chief complaint of bilateral hip, lower back pain, feels he may have a spinal infection, having cold chills, with onset over the past week or two, also concerned about a swollen area on his R hand that he used to shoot up in one month ago. Quality described as extremely painful in his back and hips, no radiation to active fever, urinary retention, bowel incontinence, numbness/tingling to legs, cough, shortness of breath, chest pain, redness to hand. Severity is described as severe. Palliating factors include nothing specific attempted. Provoking factors include nothing specific. Patient not anticoagulated. Related Data Home Medications ?Medication ?Instructions ?Recorded ?Confirmed buprenorphine 12 mg-naloxone 3 mg 2 film sublingual DAILY 09/22/22 04/09/24 sublingual film (Suboxone) bupropion HCl 300 mg 24 hr tablet, 300 mg PO DAILY #10 tabs 02/08/24 04/09/24 extended release gabapentin 600 mg tablet 600 mg PO TID #30 tabs 02/08/24 04/09/24 acetaminophen 500 mg tablet 1,000 mg PO Q6H PRN 02/20/24 04/09/24 cyclobenzaprine 5 mg tablet 5 mg PO Q8H PRN 02/20/24 04/09/24 diclofenac sodium 1 % topical gel 2 g topical QID 02/20/24 04/09/24 gabapentin 300 mg capsule 300 mg PO DAILY 02/20/24 04/09/24 ibuprofen 600 mg tablet 600 mg PO Q6H PRN 02/20/24 04/09/24 meloxicam 7.5 mg tablet 15 mg PO DAILY 02/20/24 04/09/24 omeprazole 20 mg capsule,delayed 20 mg PO DAILY 02/20/24 04/09/24 release ziprasidone HCl 40 mg capsule 40 mg PO DAILY 02/20/24 04/09/24 cyclobenzaprine 5 mg tablet 5 mg PO TID #6 tabs 02/23/24 04/09/24 gabapentin 600 mg tablet 600 mg PO TID #6 tabs 02/23/24 04/09/24 (Neurontin) ziprasidone HCl 40 mg capsule 40 mg PO BID #4 caps 02/23/24 04/09/24 (Geodon) methocarbamol 750 mg tablet 750 mg PO QID 7 days #28 tabs 04/09/24 prednisone 20 mg tablet 40 mg (2 x 20 mg) PO DAILY 5 days 04/09/24 #10 tabs Previous Rx's ?Medication ?Instructions ?Recorded bupropion HCl 300 mg 24 hr tablet, 300 mg PO DAILY #10 tabs 02/08/24 extended release gabapentin 600 mg tablet 600 mg PO TID #30 tabs 02/08/24 cyclobenzaprine 5 mg tablet 5 mg PO TID #6 tabs 02/23/24 gabapentin 600 mg tablet 600 mg PO TID #6 tabs 02/23/24 (Neurontin) ziprasidone HCl 40 mg capsule 40 mg PO BID #4 caps 02/23/24 (Geodon) methocarbamol 750 mg tablet 750 mg PO QID 7 days #28 tabs 04/09/24 prednisone 20 mg tablet 40 mg (2 x 20 mg) PO DAILY 5 days 04/09/24 #10 tabs Allergies Allergy/AdvReac Type Severity Reaction Status Date / Time onion Allergy Intermediate Hives Verified 04/09/24 12:18 naproxen Allergy Mild Unknown Verified 04/09/24 12:18 Sulfa (Sulfonamide Allergy Unknown Unknown Verified 04/09/24 12:18 Antibiotics) General Stated Complaint: Nk/Back Pain CHUYITA: 4 Review of Systems All systems reviewed & are unremarkable except as noted in HPI and below Exam Narrative Exam Narrative: GENERAL APPEARANCE: Well-nourished, non-toxic, awake and alert, atraumatic, no acute distress. SKIN: Warm, pink, dry, intact, without rashes/lesions/ulcerations. HEAD: Normocephalic, atraumatic, normal hair distribution for gender/age. EYES: Normal conjunctiva, no exudates on lids/lashes. ENT: Nares patent, no circumoral cyanosis, no facial swelling NECK: Supple, trachea midline, painless cervical ROM. LUNGS/CHEST: Non-labored respirations, normal A/P diameter, symmetrical expansion, no chest wall deformity HEART (CV/PV): Regular rate, R radial pulse 2+, no peripheral edema, no JVD. ABDOMEN: Soft, non-distended, no guarding. MSK: Normal ROM, no swelling/deformity to bilateral UEs or LEs, moving all extremities without weakness, no cyanosis, spine midline without tenderness, normal curvature, mild lumbar tenderness in the midline and paraspinal regions without crepitus or step-offs, neurovascular intact in bilateral lower extremities, no saddle anesthesia, no palpable spinal mass or swelling. NEURO: Mental Status AAOx4 - alert to person, place, time, events No facial droop, no forehead involvement. Motor: No focal weakness - strength 5/5 in bilateral UEs and LEs, proximal and distal, symmetric. Sensory: sensation intact to light touch globally. Gait normal: patient ambulated without ataxia into ED room. PSYCH: euthymic, cooperative, pleasant, appropriate speech Course Vital Signs Vital signs: Vital Signs Temperature 36.2 C L 04/09/24 12:14 Pulse 77 04/09/24 12:14 Respiratory Rate 15 04/09/24 12:14 Blood Pressure 139/72 04/09/24 12:14 Pulse Oximetry 98 04/09/24 12:14 Temperature 36.2 C L 04/09/24 12:14 Pulse 77 04/09/24 12:14 Respiratory Rate 15 04/09/24 12:14 Blood Pressure 139/72 04/09/24 12:14 Blood Pressure Position Sitting 04/09/24 12:14 Pulse Oximetry 98 04/09/24 12:14 Oxygen Delivery Method Room Air 04/09/24 12:14 Oxygen Flow Rate 0 04/09/24 12:14 Medical Decision Making This dictation utilizes [id number] dictation software and may contain unedited grammatical errors. 53 year-old male presents to ED today by POV/ambulating with a chief complaint of bilateral hip, lower back pain, feels he may have a spinal infection, having cold chills, with onset over the past week or two, also concerned about a swollen area on his R hand that he used to shoot up in one month ago. Quality described as extremely painful in his back and hips, no radiation to active fever, urinary retention, bowel incontinence, numbness/tingling to legs, cough, shortness of breath, chest pain, redness to hand. Severity is described as severe. Palliating factors include nothing specific attempted. Provoking factors include nothing specific. Patients' medical history: Bipolar disorder, history of hepatitis C, methamphetamine use, psychosis, paranoia, herniated disc with low back pain. Family and social history: States no IVDU but does endorse IV drug use 1 month ago, denies EtOH use. Pertinent exam findings / vital signs include diffuse lumbar tenderness, difficult historian, endorses midline lumbar tenderness as well as bilateral paraspinal lumbar tenderness, no saddle anesthesia, neurovascular intact in bilateral lower extremities without weakness, afebrile, likely ganglion cyst to the right hand, there is a small semifluctuant indurated area without erythema or warmth to touch or purulent drainage. Differential / pathologies of concern include lumbar radiculopathy, chronic lumbar back pain, ganglion cyst, abscess, less likely spinal epidural abscess. Diagnostic studies of: -CBC, CMP, lactate, procalcitonin, tick and Lyme panel, CRP/ESR, blood cultures, x-ray hip and pelvis, x-ray lumbar spine, ultrasound soft tissue right head. Deferring MRI until preliminary studies result. -CBC shows no leukocytosis, no anemia -Lactate negative, procalcitonin negative -CRP/ESR negative -CMP shows no acute abnormality -Blood Cx's pending -Tick/Lyme panel pending -XR pending at sign-out -US Soft Tissue pending at sign-out Interventions of: -Tylenol, Toradol, Methocarbamol, Dexamethasone, Lidoderm Patch. ED Course/Assessment/Plan: 54-year-old IV drug user presents with lower back. Feeling he has a spiral infection, he is afebrile, endorses chills, states he cannot walk but is able to stand easily at bedside. His inflammatory markers are negative I do not suspect spinal epidural abscess with his benign exam, he has no palpable spinal masses, most of his pain is bilaterally in the paraspinal or SI joint areas, he has a history of chronic back pain and disc herniation. I treated him with Tylenol, Toradol, methocarbamol, dexamethasone and Lidoderm patch, sent prescription for methocarbamol and prednisone burst, recommend OTC Lidoderm patching and therapeutic dosing of Tylenol and NSAIDs, I sent him a physical therapy referral. Patient is signed out to oncoming provider Mariella Valdez, [employer] at shift change with pending x-rays and ultrasound with low suspicion for any acute pathology, the patient has 0 elevation of inflammatory markers he has neurovascular intact I do not suspect spinal emergent pathology, he has received cocktail of medicines for acute back pain, I do not suspect any abscess or infectious etiology at the swelling of his hand and ultrasound will likely confirm ganglion cyst. Rx sent for methocarbamol and prednisone burst for acute back pain relief. Any pending findings from imaging to be addressed by oncoming provider. Findings not consistent with osteomyelitis, spinal epidural abscess, cauda equina, fever, infection, cellulitis, abscess. Disposition of Ganglion Cyst of Right Hand, Lumbar Back Pain. Patient verbalized understanding of the plan and return to ED criteria and engaged in shared decision making. Medical Records Medical records reviewed: Yes I reviewed the patient's medical records. Imaging Data Radiologic Study: Attestation: I personally reviewed and interpreted this imaging study as follows: Imaging: X-Ray My impression: Pending at sign-out Radiologic Study #2: Attestation: I personally reviewed and interpreted this imaging study as follows: Imaging: X-Ray My impression: Pending at sign-out Radiologic Study #3: Attestation: I personally reviewed and interpreted this imaging study as follows: Imaging: Ultrasound My impression: Pending at sign-out Lab Data Lab results reviewed: Yes I reviewed the patient's lab results. Labs: 04/09/24 13:30 Blood Blood Culture - Pending 04/09/24 13:30 Blood Blood Culture - Pending Laboratory Tests Range/Units 04/09/24 13:30 WBC (4.4-10.8) 10^3/uL 6.93 RBC (4.36-5.78) 10^6/uL 4.55 Hgb (13.5-17.5) g/dL 15.0 Hct (40.0-50.0) % 44.2 MCV (80-95) fL 97 H MCH (27.0-33.0) pg 33.0 MCHC (32.0-36.0) % 33.9 RDW (11.8-14.1) % 11.6 L Plt Count (130-400) 10^3/uL 218 MPV (8.0-11.0) fL 9.2 Immature Gran % % 0.1 Neutrophils % % 67.6 Lymphocytes % % 25.8 Monocytes % % 4.5 Eosinophils % % 1.4 Basophils % % 0.6 Nucleated RBC % (0.0-0.3) % 0.0 Absolute Neutrophils (1.2-6.7) 10^3/uL 4.68 Absolute Lymphocytes (1.2-3.4) 10^3/uL 1.79 Absolute Monocytes (0.1-0.8) 10^3/uL 0.31 Absolute Eosinophils (0.0-0.7) 10^3/uL 0.10 Absolute Basophils (0.0-0.2) 10^3/uL 0.04 ESR (0-20) mm/hr 17 VBG Lactate (<or=2.0) mmol/L 0.7 Sodium (136-145) mmol/L 141 Potassium (3.5-5.1) mmol/L 4.5 Chloride (98-107) mmol/L 104 Carbon Dioxide (21.0-32.0) mmol/L 29.0 Anion Gap (3-11) mmol/L 8.0 BUN (7-18) mg/dL 18 Creatinine (0.70-1.30) mg/dL 0.7 Est GFR (CKD-EPI 2020) (mL/min/1.73m2) 110.87 Glucose (74-106) mg/dL 92 Calcium (8.5-10.1) mg/dL 9.5 Total Bilirubin (0.2-1.0) mg/dL 0.19 L AST (15-37) U/L 22 ALT (16-63) U/L 32 Alkaline Phosphatase (46-116) U/L 73 C-Reactive Protein (<or=0.5) mg/dL < 0.50 Total Protein (6.4-8.2) g/dL 7.8 Albumin (3.4-5.0) g/dL 3.7 Procalcitonin ng/mL < 0.10 Quality:SDOH Health Related Social Needs: No Data to Display PFSH All Active Problems (Updated 04/09/24 @ 14:54 by BECKIE Bhatia) Lumbar back pain (Acute) Major depressive disorder, recurrent episode, severe (Acute) 02/19/[facility] [place] [facility] Axillary abscess (Acute) Right hip pain (Acute) Right knee pain (Acute) Methamphetamine use (Acute) 06/08/22 Per [facility] ED. -hb Psychosis (Acute) 06/08/2022. [facility] ED Paranoid (Acute) IV drug abuse (Chronic) Herniated disc (Acute) Low back pain (Acute) Medication side effects (Acute) Screening for hyperlipidemia (Acute) Elevated liver enzymes (Acute) Medical History Bipolar disorder Hepatitis C s/p treatment with interferon Paranoid ideation ADHD Depression Anxiety Surgical History Presence of surgical screw in left hand History of surgery on arm S/P right rotator cuff repair Family History Mother Heart disease Father Diabetes Brother Diabetes Hypertension Cancer pancreatic, liver and lung Brother Diabetes Brother Diabetes Sister Cancer pancreatic cancer Social History Smoking/Tobacco Use Status: Current-Occasional Tobacco Type: cigarettes Quit status: considering quitting Second Hand Exposure: Yes Smoking risk assessment performed?: Yes Alcohol Intake: never Drug use: Never Substance use type: does not use, marijuana and crack/cocaine Details: Unclear what substances pt is using on a daily basis 02/07/24 Adopted: No Household members: other Details: girlfriend Housing: homeless Communication Needs: Hard of Hearing Education Level: master's degree Do you need help understanding health information?: Often 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 Pets and animals: No Sexually active: Yes Do you think of yourself as: straight/heterosexual Current gender identity: male What is your relationship status?: living with partner How often do you talk on the phone with friends or family?: once per week How often do you get together with friends or relatives?: twice per week Panel score (0-1 are the most socially isolated patients): 2 What type of physical activity do you participate in: regular exercise Duration: 45-60 minutes/day Frequency: 5-6 times per week Mihaela/Hoahaoism: Bahai Special mihaela needs: No Seatbelt use: always Helmet use: Yes Drive intox or ride w/intox team driver: No Do you feel safe at home: Yes Do you feel safe in your relationship?: Yes
--- NOTE | 2024-04-09 12:30 | DI.RAD_ITS ---
Exam(s) XR HIP PELVIS ADULT BL EXAM: XR HIP PELVIS ADULT BL CLINICAL HISTORY: bilateral hip and lumbar back pain. TECHNIQUE: 2D digital imaging was performed. Three views. COMPARISON: No exams were available for comparison FINDINGS: BONES: No acute fracture is present. No bony destructive lesion is seen. JOINTS: No dislocation present. There is severe narrowing of the right superior hip joint space. The re is periarticular spurring. There may be slight flattening of the right femoral head. There is mi ld narrowing of the left hip joint space and moderate left acetabular spurring. The SI joints show m ild degenerative changes. The pubic symphysis is unremarkable. SOFT TISSUE: Normal. IMPRESSION: Degenerative changes, greatest of the right hip. No acute abnormality. DATA REPOSITORY: RADIATION DOSE DELIVERED:
--- NOTE | 2024-04-09 12:30 | DI.RAD_ITS ---
Exam(s) XR LUMBAR SPINE AP, LAT EXAM: XR LUMBAR SPINE AP, LAT CLINICAL HISTORY: low back pain. TECHNIQUE: 2D digital imaging was performed. Five views. COMPARISON: CR XR HIP PELVIS ADULT BL from 04/09/2024 FINDINGS: The exam is somewhat limited by overlying bowel gas and stool. BONES: No fracture or destructive lesion. Vertebral body heights are maintained. Multilevel endpla te osteophytes. Facet degenerative changes from L3-4 through L5-S1. DISKS: Mild narrowing of the L3-4 and L4-5 due disc spaces. The remaining intervertebral disc spac es are maintained. ALIGNMENT: Lumbar spinal alignment is within normal limits. SOFT TISSUE: Normal. IMPRESSION: Degenerative changes of the lower lumbar spine. DATA REPOSITORY: RADIATION DOSE DELIVERED:
--- NOTE | 2024-04-09 12:30 | DI.US_ITS ---
Exam(s) US SOFT TISSUE EXTREMITY EXAM: US SOFT TISSUE EXTREMITY CLINICAL HISTORY: R hand cyst, ?ganglion. TECHNIQUE: Ultrasound was performed using standard protocol. COMPARISON: No exams were available for comparison FINDINGS: Sonographic assessment utilizing grayscale and color Doppler imaging was performed and targeted to th e area of clinical concern at the posterior hand between the 2nd and 4th metacarpals. There is a focal area of edema and fluid in the subcutaneous fat measuring roughly 1.8 x 0.5 x 1.7 cm . There is some surrounding hypervascularity which could indicate infection/inflammation. There is no discrete drainable collection. IMPRESSION: Focal area of edema in subcutaneous fat of the hand. No discrete drainable abscess collection. DATA REPOSITORY:
[2024-04-09 13:46] LABS: Lactate 0.7 mmol/L (<or=2.0)
[2024-04-09 13:49] LABS: Abs Immature Grans 0.01 10^3/uL (0.0-0.06); Absolute Basophil Count 0.04 10^3/uL (0.0-0.2); Absolute Lymphocyte Count 1.79 10^3/uL (1.2-3.4); Absolute Monocyte Count 0.31 10^3/uL (0.1-0.8); Absolute Neutrophil Count 4.68 10^3/uL (1.2-6.7); Basophils % 0.6 %; Eosinophils % 1.4 %; HCT 44.2 % (40.0-50.0); Immature Grans % 0.1 %; Lymphocytes % 25.8 %; MCHC 33.9 % (32.0-36.0); MCV 97 fL (80-95); MPV 9.2 fL (8.0-11.0); Monocytes % 4.5 %; Neutrophils % 67.6 %; Platelet Count 218 10^3/uL (130-400); RBC 4.55 10^6/uL (4.36-5.78); RDW 11.6 % (11.8-14.1); RDW-SD 41.8 fL; WBC 6.93 10^3/uL (4.4-10.8)
[2024-04-09 13:53] LABS: ESR 17 mm/hr (0-20)
[2024-04-09 14:17] LABS: ALT 32 U/L (16-63); AST 22 U/L (15-37); Albumin 3.7 g/dL (3.4-5.0); Alkaline Phosphatase 73 U/L (46-116); BUN 18 mg/dL (7-18); Bilirubin, Total 0.19 mg/dL (0.2-1.0); CREATININE 0.7 mg/dL (0.70-1.30); Calcium 9.5 mg/dL (8.5-10.1); Chloride 104 mmol/L (98-107); Estimated GFR 110.87 (mL/min/1.73m2); Glucose 92 mg/dL (74-106); Potassium 4.5 mmol/L (3.5-5.1); Sodium 141 mmol/L (136-145); Total Protein 7.8 g/dL (6.4-8.2)
[2024-04-09 14:18] LABS: C-Reactive Protein < 0.50 mg/dL (<or=0.5)
[2024-04-09 14:35] LABS: Procalcitonin < 0.10 ng/mL
--- NOTE | 2024-04-09 15:27 | W.ED.FU ---
Follow Up Plan: Handoff report received from BECIKE Tam daytime NATACHA. Please see his note for full HPI, PE, lab interpretation. Xrays and US pending at handoff. Hip/pelvis and lumbar spine x-rays all unremarkable other than degenerative changes. There is a superficial thrombosis left forearm; this is consistent with known IV drug use. Ultrasound of hand shows focal area of edema and subcutaneous fat of the hand with no discrete drainable abscess collection. No red flags concerning for acute infection at this time. Annmarie was able to ambulate within the emergency department, says he is uncomfortable with ambulation. He is currently unhoused, says that he needs to be linking with services. Recommend close follow-up with PCP for further evaluation/management and connection with community services.
--- NOTE | 2024-04-09 15:30 | DI.US_ITS ---
Exam(s) US UPPER EXTREMITY VENOUS RT EXAM: US UPPER EXTREMITY VENOUS RT CLINICAL HISTORY: f/u from hand US. TECHNIQUE: Ultrasound examination of the right upper extremity venous system(s) is performed using g rayscale, color-flow, and spectral Doppler analysis. COMPARISON: No exams were available for comparison FINDINGS: The right internal jugular, axillary, subclavian, basilic, brachial, radial, and ulnar veins are pat ent without evidence of thrombosis. There is thrombus in superficial vein of the proximal to distal forearm, likely cephalic vein. The cephalic vein in the upper arm appears patent. IMPRESSION: Superficial thrombosis in the forearm, likely cephalic vein. No additional sites of thrombosis. DATA REPOSITORY:
[2024-04-09] MEDS: Ketorolac 15 MG/ML VIAL IVP (15:36)
[2024-04-09] MEDS: Dexamethasone 10 MG/ML VIAL IVP (15:37)
[2024-04-09] MEDS: Methocarbamol 750 MG TAB PO (15:37)
[2024-04-09] MEDS: Acetaminophen 500 MG TAB 1000 MG PO (15:37)
[2024-04-10 09:59] LABS: Lyme Ab w Rflx to Lyme Confirm Negative (Negative)
[2024-04-12 14:34] LABS: Anaplasma phagocytophilum Negative (Negative); B. miyamotoi PCR Negative (Negative); Babesia divergens/MO-1 Negative (Negative); Babesia duncani Negative (Negative); Babesia microti Negative (Negative); Ehrlichia chaffeensis Negative (Negative); Ehrlichia ewingii/canis Negative (Negative); Ehrlichia muris eauclairensis Negative (Negative)
== END 2024-04-09 18:30 | disposition home or self-care (01) ==
PROVIDERS: Physician Assistant; Emergency Provider Nurse Practitioner Family; PCP Physical Therapist
DX: M25.551 Pain in right hip (principal); M25.552 Pain in left hip; I82.611 Acute embolism and thrombosis of superficial veins of right upper extremity; M54.50 Low back pain, unspecified; F17.210 Nicotine dependence, cigarettes, uncomplicated
CPT/HCPCS: 73521; 76881; 80053; 84145; 85652; 87040; 87798; 96374; 96375; 99285; 72100; 83605; 85025; 86140; 86618; 93971; 99284; J1100; J1885

== ENCOUNTER 2024-05-27 02:10 | Emergency (ER) | payer MEDICAID, SELFPAY ==
[2024-05-27] VITALS (15 sets, daily range): BP systolic 115–152; BP diastolic 65–95; PULSE 49–71; RESP 16; TEMP 36.4; O2SAT 97–100
--- NOTE | 2024-05-27 02:00 | RT.EKG_ITS ---
APPROVED REPORT Exam: Resting ECG Reason for Exam: abd pain over 45 Patient Location: E HR:53 bpm ECG Measurements Heart Rate 53 AXIS IL 153 P 4 QRSd 102 QRS 91 QT 424 T 44 QTc 399 Conclusion Sinus bradycardia...rate< 60 Physician: no stemi
--- NOTE | 2024-05-27 02:30 | DI.CT_ITS ---
Exam(s) CT ABDOMEN PELVIS CTA EXAM: CT ABDOMEN PELVIS CTA CLINICAL HISTORY: gen. abd pain, umbil hernia, mesenteric protocol. TECHNIQUE: Imaging Protocol: Axial CT angiography was performed with multi-slice acquisition and m ulti-planar and/or 3D reconstructions. CONTRAST MATERIAL: Intravenous: Omnipaque 350 Contrast volume:90mL Oral: No COMPARISON: CT CT ABDOMEN PELVIS W from 09/27/2023 FINDINGS: ABDOMEN AND PELVIS: Abdomen: Celiac axis/mesenteric arteries: No evidence of occlusion or significant stenosis. Renal Arteries: No evidence of occlusion or significant stenosis. Minimal atherosclerosis is seen in the left renal artery. Aorta: No evidence of occlusion or significant stenosis. No aneurysm or dissection. Mild atheroscler otic calcification is present. Pelvis: Iliac Arteries: No evidence of occlusion or significant stenosis. Common Femoral Arteries: No evidence of occlusion or significant stenosis. ABDOMEN: Lung bases: There is a calcified granuloma in the left lower lobe. Liver: Normal density. No measurable mass. Portal, Superior Mesenteric, and Splenic Veins: Unremarkable. Gallbladder and Biliary Tract: No radiodense calculus or dilation. Pancreas: Normal density, no abnormal calcifications or inflammatory process. Spleen: Normal. There is a calcified granuloma in the spleen. Adrenals: No masses seen. Kidneys: Normal size, contour and axis. No radiodense stones or obstructive uropathy. No masses seen. Bowel: No obstruction or bowel wall thickening. No evidence of appendicitis. No pneumatosis. Peritoneal Cavity: No ascites, collection or mesenteric inflammatory response. No free air. Lymph Nodes: Within normal limits. Bones: Age-appropriate degenerative changes are present. There are marked degenerative changes seen in the right hip. Soft Tissues: There is an umbilical hernia which is small to moderate in size. It appears to contain fat/omentum. There is mild infiltration of the soft tissues within the hernia. PELVIS: Bladder: Symmetric distention, no gross wall thickening. Reproductive Organs: Unremarkable as visualized. Lymph Nodes: Within normal limits. Bones: Within normal limits. IMPRESSION: 1. No evidence of an aortic dissection or aneurysm. 2. Fat containing umbilical hernia which is small to moderate in size. There is mild infiltration of the soft tissues within the hernia. Ischemia/incarceration should be considered. 3. Unremarkable bowel without evidence of pneumatosis or portal venous gas. 4. The preliminary [facility] report was reviewed. RADIATION DOSE DELIVERED: 781.79mGy.cm Total DLP DATA REPOSITORY: All CT scans at this facility are submitted to the National Radiology Data Registry (NRDR) Dose Index Registry (DIR) with the [employer] (ACR). RADIATION OPTIMIZATION: All CT scans at this facility use at least one of these dose optimization te chniques: automated exposure control; mA and/or kV adjustment per patient size (includes targeted exa ms where dose is matched to clinical indication); or iterative reconstruction.
[2024-05-27 03:00] LABS: Lactate 0.9 mmol/L (<or=2.0)
[2024-05-27] MEDS: Omnipaque 350 MG/ML 100 ML BTL IJ (03:00)
[2024-05-27] MEDS: ACETAMINOPHEN 1,000 MG/100 ML BAG 400 MG IVPB (03:00)
[2024-05-27] MEDS: Normal Saline Flush 10 ML SYR IVP (03:01)
[2024-05-27 03:02] LABS: Abs Immature Grans 0.02 10^3/uL (0.0-0.06); Absolute Basophil Count 0.03 10^3/uL (0.0-0.2); Absolute Eosinophil Count 0.16 10^3/uL (0.0-0.7); Absolute Lymphocyte Count 2.13 10^3/uL (1.2-3.4); Absolute Monocyte Count 0.52 10^3/uL (0.1-0.8); Absolute Neutrophil Count 6.45 10^3/uL (1.2-6.7); Basophils % 0.3 %; Eosinophils % 1.7 %; HCT 41.7 % (40.0-50.0); Immature Grans % 0.2 %; Lymphocytes % 22.9 %; MCH 33.5 pg (27.0-33.0); MCHC 33.6 % (32.0-36.0); MCV 100 fL (80-95); MPV 9.2 fL (8.0-11.0); Monocytes % 5.6 %; Neutrophils % 69.3 %; Platelet Count 215 10^3/uL (130-400); RBC 4.18 10^6/uL (4.36-5.78); RDW 11.8 % (11.8-14.1); RDW-SD 43.6 fL; WBC 9.31 10^3/uL (4.4-10.8)
[2024-05-27] MEDS: Normal Saline - Diluent 50 ML VIAL IJ (03:02)
[2024-05-27] MEDS: Dicyclomine 10 MG CAP PO (03:04)
[2024-05-27] MEDS: Ketorolac 15 MG/ML VIAL IVP (03:04)
--- NOTE | 2024-05-27 03:06 | ED.GENADUL_ITS ---
Discharge Plan Discharge Details Chief Complaint: Abd Prob Primary Care Provider: Jef Balderas ED Provider: Dimas Mao Home Meds and New Rx's Prescriptions: No Action ibuprofen 600 mg tablet 600 mg PO Q6H PRN acetaminophen 500 mg tablet 1,000 mg PO Q6H PRN cyclobenzaprine 5 mg tablet 5 mg PO Q8H PRN Patient Comments: need rx gabapentin 300 mg capsule 300 mg PO DAILY Patient Comments: needs rx meloxicam 7.5 mg tablet 15 mg PO DAILY Patient Comments: needs rx omeprazole 20 mg capsule,delayed release(DR/EC) 20 mg PO DAILY diclofenac sodium 1 % gel 2 g topical QID ziprasidone HCl 40 mg capsule 40 mg PO DAILY Patient Comments: needs rx Rx Instructions: give with food (meal/snack) gabapentin 600 mg tablet 600 mg PO TID Qty: 30 0RF Patient Comments: needs rx bupropion HCl 300 mg tablet extended release 24 hr 300 mg PO DAILY Qty: 10 1RF Patient Comments: needs rx ziprasidone HCl [Geodon] 40 mg capsule 40 mg PO BID Qty: 4 0RF Rx Instructions: give with food (meal/snack) gabapentin [Neurontin] 600 mg tablet 600 mg PO TID Qty: 6 0RF cyclobenzaprine 5 mg tablet 5 mg PO TID Qty: 6 0RF buprenorphine-naloxone [Suboxone] 12-3 mg film 2 film sublingual DAILY Patient Comments: PLACE TWO FILMS UNDER THE TONGUE EVERY DAY FOR 7 DAYS HPI General Date/Time Provider Initiated Documentation: 05/27/24 02:13 . HPI Narrative: 53-year-old male with a past medical history of psychosis, paranoia, hepatitis C, previous IV drug use, history of herniated disks, bipolar, presents today for evaluation of abdominal pain. Patient states that 2 hours ago he had a sudden onset of sharp and achy abdominal pain throughout his entire abdomen. He has a history of an umbilical hernia, states that the pain is both there but also everywhere throughout the rest of the abdomen. He denies any vomiting or diarrhea but does admit to mild nausea. He denies any chest pain or shortness of breath. He denies any numbness tingling or weakness. He denies any back or flank pain. No other complaints at this time. Pain is made worse with movement, and palpation of the abdomen. It is improved by nothing. Related Data Home Medications ?Medication ?Instructions ?Recorded ?Confirmed buprenorphine 12 mg-naloxone 3 mg 2 film sublingual DAILY 09/22/22 05/27/24 sublingual film (Suboxone) bupropion HCl 300 mg 24 hr tablet, 300 mg PO DAILY #10 tabs 02/08/24 05/27/24 extended release gabapentin 600 mg tablet 600 mg PO TID #30 tabs 02/08/24 05/27/24 acetaminophen 500 mg tablet 1,000 mg PO Q6H PRN 02/20/24 05/27/24 cyclobenzaprine 5 mg tablet 5 mg PO Q8H PRN 02/20/24 05/27/24 diclofenac sodium 1 % topical gel 2 g topical QID 02/20/24 05/27/24 gabapentin 300 mg capsule 300 mg PO DAILY 02/20/24 05/27/24 ibuprofen 600 mg tablet 600 mg PO Q6H PRN 02/20/24 05/27/24 meloxicam 7.5 mg tablet 15 mg PO DAILY 02/20/24 05/27/24 omeprazole 20 mg capsule,delayed 20 mg PO DAILY 02/20/24 05/27/24 release ziprasidone HCl 40 mg capsule 40 mg PO DAILY 02/20/24 05/27/24 cyclobenzaprine 5 mg tablet 5 mg PO TID #6 tabs 02/23/24 05/27/24 gabapentin 600 mg tablet 600 mg PO TID #6 tabs 02/23/24 05/27/24 (Neurontin) ziprasidone HCl 40 mg capsule 40 mg PO BID #4 caps 02/23/24 05/27/24 (Geodon) Previous Rx's ?Medication ?Instructions ?Recorded bupropion HCl 300 mg 24 hr tablet, 300 mg PO DAILY #10 tabs 02/08/24 extended release gabapentin 600 mg tablet 600 mg PO TID #30 tabs 02/08/24 cyclobenzaprine 5 mg tablet 5 mg PO TID #6 tabs 02/23/24 gabapentin 600 mg tablet 600 mg PO TID #6 tabs 02/23/24 (Neurontin) ziprasidone HCl 40 mg capsule 40 mg PO BID #4 caps 02/23/24 (Geodon) Allergies Allergy/AdvReac Type Severity Reaction Status Date / Time onion Allergy Intermediate Hives Verified 05/27/24 02:21 naproxen Allergy Mild Unknown Verified 05/27/24 02:21 Sulfa (Sulfonamide Allergy Unknown Unknown Verified 05/27/24 02:21 Antibiotics) General Stated Complaint: Abd Prob CHUYITA: 3 Exam Narrative Exam Narrative: 1.Const: Well-nourished, Well-developed, appearing stated age 2.Eyes: PERRL, no conjunctival injection, and symmetrical lids. 3.ENT: Atraumatic external nose and ears. Moist MM. Neck: Symmetric, trachea midline, No thyromegaly. 4.CVS: +S1/S2, Peripheral pulses 2+ and equal in all extremities. Brisk capillary refill in all extremities. 5.RESP: Unlabored respiratory effort. Clear to auscultation bilaterally. No wheezes rales or rhonchi 6.GI: Soft, nondistended. No guarding or rebound. Umbilical hernia is soft however the extrusion point through the anterior abdominal wall is notably deep., he has tenderness here and everywhere else throughout the abdomen. No focality whatsoever. No voluntary guarding. 7.MSK: Normocephalic/Atraumatic, Extremities w/o deformity or ttp No cyanosis or clubbing, Normal movement of all extremities 8.Skin: Warm, Dry. No rashes or lesions. 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 Sensation grossly intact, no focal neurologic deficits. 10.Psych: (AAO) x3. Appropriate mood and affect Course Vital Signs Vital signs: Vital Signs Temperature 36.4 C L 05/27/24 02:13 Pulse 69 05/27/24 02:13 Respiratory Rate 16 05/27/24 02:13 Pulse Oximetry 97 05/27/24 02:13 Temperature 36.4 C L 05/27/24 02:13 Temperature Source Temporal Artery Scan 05/27/24 02:13 Pulse 69 05/27/24 02:13 Respiratory Rate 16 05/27/24 02:13 Blood Pressure Position Supine 05/27/24 02:13 Pulse Oximetry 97 05/27/24 02:13 Oxygen Delivery Method Room Air 05/27/24 02:13 Oxygen Flow Rate 0 05/27/24 02:13 Pain Level 10 05/27/24 02:13 Comment abd pain 05/27/24 02:13 Lab/Test Results Lab/Test Results: Laboratory Tests Range/Units 05/27/24 02:55 WBC (4.4-10.8) 10^3/uL 9.31 RBC (4.36-5.78) 10^6/uL 4.18 L Hgb (13.5-17.5) g/dL 14.0 Hct (40.0-50.0) % 41.7 MCV (80-95) fL 100 H MCH (27.0-33.0) pg 33.5 H MCHC (32.0-36.0) % 33.6 RDW (11.8-14.1) % 11.8 Plt Count (130-400) 10^3/uL 215 MPV (8.0-11.0) fL 9.2 Immature Gran % % 0.2 Neutrophils % % 69.3 Lymphocytes % % 22.9 Monocytes % % 5.6 Eosinophils % % 1.7 Basophils % % 0.3 Nucleated RBC % (0.0-0.3) % 0.0 Absolute Neutrophils (1.2-6.7) 10^3/uL 6.45 Absolute Lymphocytes (1.2-3.4) 10^3/uL 2.13 Absolute Monocytes (0.1-0.8) 10^3/uL 0.52 Absolute Eosinophils (0.0-0.7) 10^3/uL 0.16 Absolute Basophils (0.0-0.2) 10^3/uL 0.03 VBG Lactate (<or=2.0) mmol/L 0.9 Medical Decision Making 53-year-old male with a past medical history of psychosis, paranoia, hepatitis C, previous IV drug use, history of herniated disks, bipolar, presents today for evaluation of abdominal pain. Patient states that 2 hours ago he had a sudden onset of sharp and achy abdominal pain throughout his entire abdomen. He has a history of an umbilical hernia, states that the pain is both there but also everywhere throughout the rest of the abdomen. He denies any vomiting or diarrhea but does admit to mild nausea. He denies any chest pain or shortness of breath. He denies any numbness tingling or weakness. He denies any back or flank pain. No other complaints at this time. Pain is made worse with movement, and palpation of the abdomen. It is improved by nothing. Exam demonstrates generalized tenderness throughout the entire abdomen, also tenderness over his umbilical hernia site however the umbilical hernia is notably soft, with no redness erythema or warmth, albeit notably tender. Differential is broad but includes gastroenteritis, but also mesenteric ischemia, less likely AAA. Will evaluate for these etiologies. Despite the patient's pain his vital signs are notably stable with normal blood pressure heart rate and oxygen with no fever or tachypnea. Will give Toradol, Tylenol and Bentyl. Will monitor closely and reassess. 4:39 AM Laboratory workup has returned, no white count or bandemia. Electrolytes stable. CT scan shows evidence of a fat-containing umbilical hernia with stranding. Concern for incarceration. I did go back in and attempted to fully reduce the area. Still notably tender after medications. However unfortunately due to his anterior abdominal adipose even with significant pressure I am not able to get the hernia back in. It appears to remain incarcerated. I did contact Dr. Chandler. He recommends ice and time. He will be in in the next few hours to attempt reduction. 7:50 AM Repeat attempt was made, unsuccessful. Discussed the case with surgery Dr. Holder. He will come and evaluate the patient. FINDINGS: Aorta: Atherosclerotic changes in the aorta. Celiac trunk and mesenteric arteries: No occlusion or significant stenosis. Renal arteries: No occlusion or significant stenosis. Right iliac arteries: No occlusion or significant stenosis. Left iliac arteries: No occlusion or significant stenosis. Liver: Low attenuation lesions in the liver too small to accurately characterize on CT. Gallbladder and biliary ducts: No radiodense gallbladder calculi seen. Pancreas: No evidence for acute pancreatitis. Spleen: No splenomegaly. Adrenal glands: Adrenal thickening Kidneys and ureters: No hydronephrosis. Stomach and bowel: No evidence for obstruction. Appendix: No evidence of appendicitis. Intraperitoneal space: No free air. Lymph nodes: Nonspecific mesenteric and retroperitoneal lymph nodes. Urinary bladder: No wall thickening. Reproductive: No acute abnormality. Bones/joints: No acute fracture. Soft tissues: Fat containing umbilical hernia with stranding. IMPRESSION: 1. Fat containing umbilical hernia with stranding. Correlate clinically for incarceration. 2. Additional findings as above. Thank you for allowing us to participate in the care of your patient. Dictated and Authenticated by: Carleen Duran MD 05/27/2024 3:54 AM Eastern Time ([place] & [place]) Quality:SDOH Health Related Social Needs: No Data to Display PFSH All Active Problems (Updated 05/10/24 @ 00:03 by GRACE BROTHERS) Major depressive disorder, recurrent episode, severe (Acute) 02/19/24 [facility] Axillary abscess (Acute) Right hip pain (Acute) Right knee pain (Acute) Methamphetamine use (Acute) 06/08/22 Per [facility]. -hb Psychosis (Acute) 06/08/2022. [facility] Paranoid (Acute) IV drug abuse (Chronic) Herniated disc (Acute) Low back pain (Acute) Medication side effects (Acute) Screening for hyperlipidemia (Acute) Elevated liver enzymes (Acute) Medical History Bipolar disorder Hepatitis C s/p treatment with interferon Paranoid ideation ADHD Depression Anxiety Surgical History Presence of surgical screw in left hand History of surgery on arm S/P right rotator cuff repair Family History Mother Heart disease Father Diabetes Brother Diabetes Hypertension Cancer pancreatic, liver and lung Brother Diabetes Brother Diabetes Sister Cancer pancreatic cancer Social History Smoking/Tobacco Use Status: Current-Occasional Tobacco Type: cigarettes Quit status: considering quitting Second Hand Exposure: Yes Smoking risk assessment performed?: Yes Alcohol Intake: never Drug use: Never Substance use type: does not use, marijuana and crack/cocaine Details: Unclear what substances pt is using on a daily basis 02/07/24 Adopted: No Household members: other Details: girlfriend Housing: homeless Communication Needs: Hard of Hearing Education Level: master's degree Do you need help understanding health information?: Often 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 Pets and animals: No Sexually active: Yes Do you think of yourself as: straight/heterosexual Current gender identity: male What is your relationship status?: living with partner How often do you talk on the phone with friends or family?: once per week How often do you get together with friends or relatives?: twice per week Panel score (0-1 are the most socially isolated patients): 2 What type of physical activity do you participate in: regular exercise Duration: 45-60 minutes/day Frequency: 5-6 times per week Mihaela/Yazidi: Buddhist Special mihaela needs: No Seatbelt use: always Helmet use: Yes Drive intox or ride w/intox 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
[2024-05-27 03:19] LABS: ALT 29 U/L (16-63); AST 22 U/L (15-37); Albumin 3.6 g/dL (3.4-5.0); Alkaline Phosphatase 71 U/L (46-116); Anion Gap 2.8 mmol/L (3-11); BUN 15 mg/dL (7-18); Bilirubin, Total 0.3 mg/dL (0.2-1.0); CO2 33.2 mmol/L (21.0-32.0); CREATININE 0.8 mg/dL (0.70-1.30); Calcium 9.4 mg/dL (8.5-10.1); Chloride 104 mmol/L (98-107); Estimated GFR 106.48 (mL/min/1.73m2); Glucose 104 mg/dL (74-106); Lipase 11 U/L (<78); Potassium 3.9 mmol/L (3.5-5.1); Sodium 140 mmol/L (136-145); Total Protein 7.2 g/dL (6.4-8.2)
[2024-05-27 03:26] LABS: ETHANOL BLOOD < 3.0 mg/dL (<10)
[2024-05-27] MEDS: Lactated Ringers 1,000 ML 1000 ML IV (03:36)
--- NOTE | 2024-05-27 03:41 | NUR.NOTE ---
PT stated he can not provide a urine sample, FPBharati
--- NOTE | 2024-05-27 03:54 | DI.VRAD_ITS ---
PROCEDURE INFORMATION: Exam: CTA Abdomen and Pelvis With Contrast Exam date and time: 05/27/2024 2:57 AM Age: 53 years old Clinical indication: Abdominal pain; Periumbilical; Gen. Abd pain, umbil hernia, mesenteric protocol TECHNIQUE: Imaging protocol: Computed tomographic angiography of the abdomen and pelvis with contrast. Exam focused on the arteries. 3D rendering (Not supervised by radiologist): MIP and/or 3D reconstructed images were created by the technologist. Radiation optimization: All CT scans at this facility use at least one of these dose optimization techniques: automated exposure control; mA and/or kV adjustment per patient size (includes targeted exams where dose is matched to clinical indication); or iterative reconstruction. Contrast material: OMNIPAQUE 350; Contrast volume: 90 ml; Contrast route: INTRAVENOUS (IV); COMPARISON: CT ABDOMEN PELVIS W 09/27/2023 9:27 AM FINDINGS: Aorta: Atherosclerotic changes in the aorta. Celiac trunk and mesenteric arteries: No occlusion or significant stenosis. Renal arteries: No occlusion or significant stenosis. Right iliac arteries: No occlusion or significant stenosis. Left iliac arteries: No occlusion or significant stenosis. Liver: Low attenuation lesions in the liver too small to accurately characterize on CT. Gallbladder and biliary ducts: No radiodense gallbladder calculi seen. Pancreas: No evidence for acute pancreatitis. Spleen: No splenomegaly. Adrenal glands: Adrenal thickening. Kidneys and ureters: No hydronephrosis. Stomach and bowel: No evidence for obstruction. Appendix: No evidence of appendicitis. Intraperitoneal space: No free air. Lymph nodes: Nonspecific mesenteric and retroperitoneal lymph nodes. Urinary bladder: No wall thickening. Reproductive: No acute abnormality. Bones/joints: No acute fracture. Soft tissues: Fat containing umbilical hernia with stranding. IMPRESSION: 1. Fat containing umbilical hernia with stranding. Correlate clinically for incarceration. 2. Additional findings as above. Dictated and Authenticated by: Carleen Duran MD. Orderin Daylin Cochran MD
[2024-05-27 04:43] LABS: Bilirubin Negative (Negative); Blood Negative (Negative); Clarity Clear (Clear); Glucose Negative (Negative); Ketones Negative (Negative); Leukocyte Esterase Negative (Negative); Nitrite Negative (Negative); Urobilinogen 0.2 mg/dL (Up to 0.2); pH 6.5 (5-8)
--- NOTE | 2024-05-27 04:52 | NUR.NOTE ---
Pt placed trendelenburg and ice packs placed on abd for a couple hours per surgeon, TY
--- NOTE | 2024-05-27 07:58 | ED.PROG_ITS ---
Date of service: 05/27/24 Time of Service: 07:58 Medical Decision Making In brief, this is a 53-year-old male patient with a past medical history significant for polysubstance use disorder, psychosis, and a known fat- containing umbilical hernia, presenting for evaluation of abdominal tenderness. Prior to my taking over the patient's care, he had laboratory studies performed that were reassuring, with no leukocytosis, lactate elevation, or metabolic derangements. His UA was negative, and he had a CT scan that showed a fat- containing umbilical hernia that does appear incarcerated. At the time that I took over his care he was awaiting evaluation by general surgery. The patient was evaluated by general surgery who did not recommend acute surgical intervention or admission at this time. The pt takes an appropriate multimodal pain regimin, tolerated PO while under my care, and was able to ambulate appropriately. A referral was sent to general surgery for re-evaluation if symptoms worsen. At this time, the patient has had a full physical examination and is safe for discharge to home. The patient is hemodynamically stable, and is understanding of the follow-up plan and return precautions. He left our facility without incident. Roseanne Aldridge MD Medical Records Medical records reviewed: Yes I reviewed the patient's medical records. Lab Data Lab results reviewed: Yes I reviewed the patient's lab results. Quality:SDOH Health Related Social Needs: No Data to Display Discharge Plan Disposition Patient Disposition: Home Condition: Stable Discharge Details Clinical Impression: Hernia, umbilical Primary Care Provider: Jef Balderas ED Provider: Roseanne Aldridge Home Meds and New Rx's Prescriptions: No Action ibuprofen 600 mg tablet 600 mg PO Q6H PRN acetaminophen 500 mg tablet 1,000 mg PO Q6H PRN cyclobenzaprine 5 mg tablet 5 mg PO Q8H PRN Patient Comments: need rx gabapentin 300 mg capsule 300 mg PO DAILY Patient Comments: needs rx meloxicam 7.5 mg tablet 15 mg PO DAILY Patient Comments: needs rx omeprazole 20 mg capsule,delayed release(DR/EC) 20 mg PO DAILY diclofenac sodium 1 % gel 2 g topical QID ziprasidone HCl 40 mg capsule 40 mg PO DAILY Patient Comments: needs rx Rx Instructions: give with food (meal/snack) gabapentin 600 mg tablet 600 mg PO TID Qty: 30 0RF Patient Comments: needs rx bupropion HCl 300 mg tablet extended release 24 hr 300 mg PO DAILY Qty: 10 1RF Patient Comments: needs rx ziprasidone HCl [Geodon] 40 mg capsule 40 mg PO BID Qty: 4 0RF Rx Instructions: give with food (meal/snack) gabapentin [Neurontin] 600 mg tablet 600 mg PO TID Qty: 6 0RF cyclobenzaprine 5 mg tablet 5 mg PO TID Qty: 6 0RF buprenorphine-naloxone [Suboxone] 12-3 mg film 2 film sublingual DAILY Patient Comments: PLACE TWO FILMS UNDER THE TONGUE EVERY DAY FOR 7 DAYS Discharge Instructions Instructions: Abdominal wall hernias Additional Instructions: You were seen in the emergency department today for evaluation of abdominal pain likely due in part to your umbilical hernia. You had a full physical examination performed, had laboratory studies that were reassuring and had a CT scan that shows that your hernia contains fat, and does not contain a loop of bowel, which would block flow of stool and waist through your intestine. At this time it is safe for you to leave the emergency department, continue eating and drinking and taking all of your medications as prescribed. Please us over the counter medications as needed for ongoing pain, and follow up with your out patient providers to discuss this visit and any symptoms that change, worsen, or persist. Thank you for allowing us to be part of your care.
--- NOTE | 2024-05-27 08:38 | SCONE_ITS ---
Date of service: 05/27/24 Time of Service: 08:38 Assessment and Plan Assessment and plan (1) Hernia, umbilical: Status: Acute Assessment and plan: Patient with reducible small ventral hernia. This should be repaired as an outpatient. Recommended patient follow-up with surgeon electively. (2) Paranoid ideation: Assessment and plan: Patient does have a history of psychiatric conditions, bipolar disorder, schizoaffective disorder and depression. He is currently on Geodon. Some of this may be leading to perseverates on abdominal pain. (3) Cocaine abuse: Status: Acute Assessment and plan: Actively abuses cocaine, does have some mild hypertension. (4) Cough: Status: Acute Assessment and plan: Patient does have cough, he downplays this some today on history and examination. This may have contributed to the pain at the periumbilical hernia site. He does smoke cocaine, which is likely exacerbating this. History of Present Illness Narrative: Patient is a 53-year-old male who presents to the emergency department having 24 hours of acute onset of abdominal pain in the periumbilical region. This is not associated with nausea or vomiting. He has no changes in bowel function. Has not had similar pain to this intensity in the past. He does have a longstanding periumbilical hernia the pain is in the periumbilical region. He does not report any inciting events, although he has had a longstanding cough. He is currently homeless. He does actively use cocaine, this is smoked. He has used cocaine for some time. Review of Systems Respiratory Comments: History of cough Gastrointestinal Comments: Abdominal pain as above PFSH All Active Problems (Updated 05/27/24 @ 08:50 by Brant Holder MD) Cough (Acute) Cocaine abuse (Acute) Hernia, umbilical (Acute) Major depressive disorder, recurrent episode, severe (Acute) 02/19/24 [place] [facility] note Axillary abscess (Acute) Right hip pain (Acute) Right knee pain (Acute) Methamphetamine use (Acute) 06/08/22 Per [facility]. -hb Psychosis (Acute) 06/08/2022. [facility] Paranoid (Acute) IV drug abuse (Chronic) Herniated disc (Acute) Low back pain (Acute) Medication side effects (Acute) Screening for hyperlipidemia (Acute) Elevated liver enzymes (Acute) Medical History Bipolar disorder Hepatitis C s/p treatment with interferon Paranoid ideation ADHD Depression Anxiety Surgical History Presence of surgical screw in left hand History of surgery on arm S/P right rotator cuff repair Family History Mother Heart disease Father Diabetes Brother Diabetes Hypertension Cancer pancreatic, liver and lung Brother Diabetes Brother Diabetes Sister Cancer pancreatic cancer Social History (Updated 05/27/24 @ 08:41 by Brant Holder MD) Smoking/Tobacco Use Status: Current-Occasional Tobacco Type: cigarettes Quit status: considering quitting Second Hand Exposure: Yes Smoking risk assessment performed?: Yes Alcohol Intake: never Drug use: Daily Substance use type: crack/cocaine Details: Unclear what substances pt is using on a daily basis 02/07/24 Adopted: No Household members: other Details: girlfriend Housing: homeless Communication Needs: Hard of Hearing Education Level: master's degree Do you need help understanding health information?: Often 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 Pets and animals: No Sexually active: Yes Do you think of yourself as: straight/heterosexual Current gender identity: male What is your relationship status?: living with partner How often do you talk on the phone with friends or family?: once per week How often do you get together with friends or relatives?: twice per week Panel score (0-1 are the most socially isolated patients): 2 What type of physical activity do you participate in: regular exercise Duration: 45-60 minutes/day Frequency: 5-6 times per week Mihaela/Scientology: Yazidism Special mihaela needs: No Seatbelt use: always Helmet use: Yes Drive intox or ride w/intox transporter driver: No Do you feel safe at home: Yes Do you feel safe in your relationship?: Yes Exam Narrative Exam Narrative: Patient is an adult male, he appears in discomfort. He is irritable. He was examined with his nurse present as an housekeeping assistant and healthcare corporate account director. His vital signs show some hypertension to a moderate degree. His cardiac exam is regular rate and rhythm without gross murmur. His pulmonary exam elicits some congestion at the right lung base. His abdomen is without prior surgical scar. He does have some abdominal obesity. In the periumbilical region, there is a small periumbilical hernia, with some laxity of the skin. The abdomen is without rigidity no distention. There is some voluntary guarding with palpation of the periumbilical region. The fascial orifice is palpable, its about 2 cm in diameter. The contents of the hernia are easily reducible. There is no erythema nor edema of the skin overlying the hernia. There is a small reducible right inguinal hernia, some laxity in the left inguinal region as well. Results Last Vital Signs Temp 36.4 C L 05/27/24 02:13 Pulse 58 L 05/27/24 06:00 Resp 16 05/27/24 06:00 BP 130/66 05/27/24 06:00 Pulse Ox 98 05/27/24 06:00 Labs 05/27/24 02:55 05/27/24 02:55 Labs: Laboratory Results - last 24 hr 05/27/24 05/27/24 02:55 04:35 WBC 9.31 RBC 4.18 L Hgb 14.0 Hct 41.7 MCV 100 H MCH 33.5 H MCHC 33.6 RDW 11.8 Plt Count 215 MPV 9.2 Immature Gran % 0.2 Neutrophils % 69.3 Lymphocytes % 22.9 Monocytes % 5.6 Eosinophils % 1.7 Basophils % 0.3 Nucleated RBC % 0.0 Absolute Neutrophils 6.45 Absolute Lymphocytes 2.13 Absolute Monocytes 0.52 Absolute Eosinophils 0.16 Absolute Basophils 0.03 VBG Lactate 0.9 Sodium 140 Potassium 3.9 Chloride 104 Carbon Dioxide 33.2 H Anion Gap 2.8 L BUN 15 Creatinine 0.8 Est GFR (CKD-EPI 2020) 106.48 Glucose 104 Calcium 9.4 Total Bilirubin 0.3 AST 22 ALT 29 Alkaline Phosphatase 71 Total Protein 7.2 Albumin 3.6 Lipase 11 Urine Color Yellow Urine Clarity Clear Urine pH 6.5 Ur Specific [place] 1.010 Urine Protein Negative Urine Ketones Negative Urine Blood Negative Urine Nitrite Negative Urine Bilirubin Negative Urine Urobilinogen 0.2 Ur Leukocyte Esterase Negative Urine Glucose Negative Ethyl Alcohol < 3.[address] scan report/results: image reviewed Additional studies: Did review image as well as radiologist to read. The image shows a small fat- containing periumbilical hernia about 2 cm in diameter, clinically consistent with examination. There is no intestinal obstruction.
--- NOTE | 2024-06-04 15:16 | NUR.NOTE ---
Nursing Note:Deneen at [facility] called. She reported that the patient has been calling her, swearing at her, and being very rude. Stated that he was just here and needs to have surgery so they need to get him a medical note for housing. She was unable to get into our medical system, [facility] is currently closed and she was unable to get through at surgical. She asked if there was anything in the note that could give her directions on what to do for this patient. There was nothing in the note that indicated that he needed to see or even follow up with surgery. Labs were reassuring and CT scan showed an umbilical hernia that contained fat but does not contain bowel and was safe for him to go home. She was going to reach out to HIM tomorrow when they are open again and see if she can get any direction from them.
== END 2024-05-27 08:59 | disposition home or self-care (01) ==
PROVIDERS: Student in an Organized Health Care Education/Training Program; Emergency Provider Emergency Medicine; PCP Physical Therapist
DX: K42.9 Umbilical hernia without obstruction or gangrene (principal); F22 Delusional disorders; F14.10 Cocaine abuse, uncomplicated; R11.0 Nausea; R05.1 Acute cough
CPT/HCPCS: 99284; 99285; 96374; 96375; 36415; 00123; 80053; 83690; 93005; 96361; 74174; 80320; 81003; 83605; 85025; 93010; J0131; J1885; J2270; J3490

== ENCOUNTER 2024-06-04 19:46 | Emergency (ER) | payer MEDICAID, SELFPAY ==
[2024-06-04 19:49] VITALS: BP 148/101; PULSE 68; RESP 20; TEMP 36.7; O2SAT 96
[2024-06-04 19:53] VITALS: BP 148/101; PULSE 68; RESP 20; TEMP 36.7; O2SAT 96
--- NOTE | 2024-06-04 20:00 | RT.EKG_ITS ---
APPROVED REPORT Exam: Resting ECG Reason for Exam: peripheral edema Patient Location: E HR:50 bpm ECG Measurements Heart Rate 50 AXIS MT 139 P 0 QRSd 106 QRS 77 QT 439 T 32 QTc 402 Conclusion Sinus bradycardia 50 Normal axis no stemi
[2024-06-04 20:08] VITALS: RESP 18
[2024-06-04] MEDS: Furosemide 20 MG/2 ML VIAL IVP (20:26)
[2024-06-04] MEDS: Gabapentin 300 MG CAP 600 MG PO (20:26)
[2024-06-04 20:30] LABS: Abs Immature Grans 0.02 10^3/uL (0.0-0.06); Absolute Basophil Count 0.03 10^3/uL (0.0-0.2); Absolute Eosinophil Count 0.18 10^3/uL (0.0-0.7); Absolute Lymphocyte Count 2.07 10^3/uL (1.2-3.4); Absolute Monocyte Count 0.32 10^3/uL (0.1-0.8); Absolute Neutrophil Count 3.63 10^3/uL (1.2-6.7); Basophils % 0.5 %; Eosinophils % 2.9 %; HCT 40.2 % (40.0-50.0); HGB 13.4 g/dL (13.5-17.5); Immature Grans % 0.3 %; Lymphocytes % 33.1 %; MCH 33.3 pg (27.0-33.0); MCHC 33.3 % (32.0-36.0); MCV 100 fL (80-95); MPV 9.2 fL (8.0-11.0); Monocytes % 5.1 %; Neutrophils % 58.1 %; Platelet Count 182 10^3/uL (130-400); RBC 4.02 10^6/uL (4.36-5.78); RDW 11.9 % (11.8-14.1); RDW-SD 43.6 fL; WBC 6.25 10^3/uL (4.4-10.8)
--- NOTE | 2024-06-04 20:33 | ED.GENADUL_ITS ---
Discharge Plan Disposition Patient Disposition: Home Condition: Stable Discharge Details Clinical Impression: Edema, peripheral Primary Care Provider: Jef Balderas ED Provider: Mavis Jaeger Home Meds and New Rx's Prescriptions: New bupropion HCl 300 mg tablet extended release 24 hr 300 mg PO QAM Qty: 7 0RF gabapentin [Neurontin] 300 mg capsule 300 mg PO TID Qty: 9 0RF ziprasidone HCl 40 mg capsule 40 mg PO DAILY Qty: 7 0RF Rx Instructions: give with food (meal/snack) furosemide [Lasix] 20 mg tablet 20 mg PO DAILY Qty: 5 0RF Continued ibuprofen 600 mg tablet 600 mg PO Q6H PRN acetaminophen 500 mg tablet 1,000 mg PO Q6H PRN cyclobenzaprine 5 mg tablet 5 mg PO Q8H PRN Patient Comments: need rx gabapentin 300 mg capsule 300 mg PO DAILY Patient Comments: needs rx meloxicam 7.5 mg tablet 15 mg PO DAILY Patient Comments: needs rx omeprazole 20 mg capsule,delayed release(DR/EC) 20 mg PO DAILY diclofenac sodium 1 % gel 2 g topical QID ziprasidone HCl 40 mg capsule 40 mg PO DAILY Patient Comments: needs rx Rx Instructions: give with food (meal/snack) gabapentin 600 mg tablet 600 mg PO TID Qty: 30 0RF Patient Comments: needs rx bupropion HCl 300 mg tablet extended release 24 hr 300 mg PO DAILY Qty: 10 1RF Patient Comments: needs rx ziprasidone HCl [Geodon] 40 mg capsule 40 mg PO BID Qty: 4 0RF Rx Instructions: give with food (meal/snack) gabapentin [Neurontin] 600 mg tablet 600 mg PO TID Qty: 6 0RF cyclobenzaprine 5 mg tablet 5 mg PO TID Qty: 6 0RF buprenorphine-naloxone [Suboxone] 12-3 mg film 2 film sublingual DAILY Patient Comments: PLACE TWO FILMS UNDER THE TONGUE EVERY DAY FOR 7 DAYS Discharge Instructions Instructions: Swelling Additional Instructions: you have ultrasound ordered of your leg for tomorrow for blood clot, they will call to schedule it take the lasix as prescribed daily, this will help with the swelling please take your medications as prescribed please stop using crack cocaine as this causes vascular disease and swelling return earlier with new or worsening complaints Referrals: Jef Balderas [Primary Care Provider] - Discharge Orders Other Ambulatory Orders: US lower extremity venous RT (STAT) Timeframe: [id number] Facility: [facility] - Location: DIAGNOSTIC IMAGING Ordered By: Mavis Jaeger HPI General Date/Time Provider Initiated Documentation: 06/04/24 20:01 . HPI Narrative: 53-year-old male with bilateral arm and right leg edema. Swelling is uncomfortable. Off medications for 4 days. Recently had an incarcerated hernia reduced in the ED. Smokes crack cocaine weekly and uses buprenorphine. Off gabapentin and ziprasidone. Homeless. Denies chest pain or shortness of breath. Related Data Home Medications ?Medication ?Instructions ?Recorded ?Confirmed buprenorphine 12 mg-naloxone 3 mg 2 film sublingual DAILY 09/22/22 06/04/24 sublingual film (Suboxone) bupropion HCl 300 mg 24 hr tablet, 300 mg PO DAILY #10 tabs 02/08/24 06/04/24 extended release gabapentin 600 mg tablet 600 mg PO TID #30 tabs 02/08/24 06/04/24 acetaminophen 500 mg tablet 1,000 mg PO Q6H PRN 02/20/24 06/04/24 cyclobenzaprine 5 mg tablet 5 mg PO Q8H PRN 02/20/24 06/04/24 diclofenac sodium 1 % topical gel 2 g topical QID 02/20/24 06/04/24 gabapentin 300 mg capsule 300 mg PO DAILY 02/20/24 06/04/24 ibuprofen 600 mg tablet 600 mg PO Q6H PRN 02/20/24 06/04/24 meloxicam 7.5 mg tablet 15 mg PO DAILY 02/20/24 06/04/24 omeprazole 20 mg capsule,delayed 20 mg PO DAILY 02/20/24 06/04/24 release ziprasidone HCl 40 mg capsule 40 mg PO DAILY 02/20/24 06/04/24 cyclobenzaprine 5 mg tablet 5 mg PO TID #6 tabs 02/23/24 06/04/24 gabapentin 600 mg tablet 600 mg PO TID #6 tabs 02/23/24 06/04/24 (Neurontin) ziprasidone HCl 40 mg capsule 40 mg PO BID #4 caps 02/23/24 06/04/24 (Geodon) bupropion HCl 300 mg 24 hr tablet, 300 mg PO QAM #7 tabs 06/04/24 extended release furosemide 20 mg tablet (Lasix) 20 mg PO DAILY #5 tabs 06/04/24 gabapentin 300 mg capsule 300 mg PO TID #9 caps 06/04/24 (Neurontin) ziprasidone HCl 40 mg capsule 40 mg PO DAILY #7 caps 06/04/24 Previous Rx's ?Medication ?Instructions ?Recorded bupropion HCl 300 mg 24 hr tablet, 300 mg PO DAILY #10 tabs 02/08/24 extended release gabapentin 600 mg tablet 600 mg PO TID #30 tabs 02/08/24 cyclobenzaprine 5 mg tablet 5 mg PO TID #6 tabs 02/23/24 gabapentin 600 mg tablet 600 mg PO TID #6 tabs 02/23/24 (Neurontin) ziprasidone HCl 40 mg capsule 40 mg PO BID #4 caps 02/23/24 (Geodon) bupropion HCl 300 mg 24 hr tablet, 300 mg PO QAM #7 tabs 06/04/24 extended release furosemide 20 mg tablet (Lasix) 20 mg PO DAILY #5 tabs 06/04/24 gabapentin 300 mg capsule 300 mg PO TID #9 caps 06/04/24 (Neurontin) ziprasidone HCl 40 mg capsule 40 mg PO DAILY #7 caps 06/04/24 Allergies Allergy/AdvReac Type Severity Reaction Status Date / Time onion Allergy Intermediate Hives Verified 06/04/24 19:55 naproxen Allergy Mild Unknown Verified 06/04/24 19:55 Sulfa (Sulfonamide Allergy Unknown Unknown Verified 06/04/24 19:55 Antibiotics) General Stated Complaint: GenMedical CHUYITA: 3 Exam Narrative Exam Narrative: General Appearance: Alert, oriented, agitated. Vital signs: Vitals stable, mild hypertension. HEENT: Within normal limits. Respiratory: Lungs clear. Cardiovascular: Distal pulses intact. Extremities: 1+ edema in hands and right leg. Skin: No diffuse anasarca, No secondary cellulitis. Neurological: Normal. Course Vital Signs Vital signs: Vital Signs Temperature 36.7 C 06/04/24 19:49 Pulse 68 06/04/24 19:49 Respiratory Rate 20 06/04/24 19:49 Blood Pressure 148/101 H 06/04/24 19:49 Pulse Oximetry 96 06/04/24 19:49 Temperature 36.7 C 06/04/24 19:53 Pulse 68 06/04/24 19:53 Respiratory Rate 18 06/04/24 20:08 Respiratory Effort Normal, Non-Labored 06/04/24 20:08 Respiratory Depth Normal 06/04/24 20:08 Blood Pressure 148/101 H 06/04/24 19:53 Blood Pressure Position Sitting 06/04/24 19:53 Pulse Oximetry 96 06/04/24 19:53 Oxygen Delivery Method Room Air 06/04/24 19:53 Oxygen Flow Rate 0 06/04/24 19:53 Lab/Test Results Lab/Test Results: Laboratory Tests Range/Units 06/04/24 20:11 WBC (4.4-10.8) 10^3/uL 6.25 RBC (4.36-5.78) 10^6/uL 4.02 L Hgb (13.5-17.5) g/dL 13.4 L Hct (40.0-50.0) % 40.2 MCV (80-95) fL 100 H MCH (27.0-33.0) pg 33.3 H MCHC (32.0-36.0) % 33.3 RDW (11.8-14.1) % 11.9 Plt Count (130-400) 10^3/uL 182 MPV (8.0-11.0) fL 9.2 Immature Gran % % 0.3 Neutrophils % % 58.1 Lymphocytes % % 33.1 Monocytes % % 5.1 Eosinophils % % 2.9 Basophils % % 0.5 Nucleated RBC % (0.0-0.3) % 0.0 Absolute Neutrophils (1.2-6.7) 10^3/uL 3.63 Absolute Lymphocytes (1.2-3.4) 10^3/uL 2.07 Absolute Monocytes (0.1-0.8) 10^3/uL 0.32 Absolute Eosinophils (0.0-0.7) 10^3/uL 0.18 Absolute Basophils (0.0-0.2) 10^3/uL 0.03 Medical Decision Making Labs: Albumin normal (21st). CBC, CMP reassuring. Imaging: Chest x-ray no acute abnormality. EKG no acute abnormality. Initial Assessment: 53-year-old male presents with swelling to bilateral arms and right lower extremity. Off medications for the past 4 days. Recently had incarcerated hernia reduced in the emergency department. Smokes crack cocaine approximately once a week, uses buprenorphine, off gabapentin, ziprasidone, currently homeless. Denies chest pain or shortness of breath. Swelling is uncomfortable. Alert and oriented, agitated. 1+ edema to bilateral hands and right lower extremity. No evidence of diffuse anasarca. Albumin within normal limits (05/27/2024). Distal pulses intact to all four extremities. ED Course: - Chest x-ray shows no evidence of acute abnormality. - Diagnostic labs including CBC, CMP reassuring. - Vitals stable, mild hypertension. - Lungs clear to auscultation. - EKG read by me, no acute abnormality. - Electrolytes stable. - Administer 20 mg IV Lasix for edema. - Prescribe Lasix 40 mg, 20 mg tablets for home. - Refill Zyprexa and bupropion. - Encourage discontinuation of crack cocaine. - Order outpatient ultrasound of right lower extremity for tomorrow. - Reviewed return precautions, patient understands. Final Assessment: Patient's swelling likely related to medication noncompliance and substance use. Diagnostic tests reassuring. Treatment includes IV Lasix and prescriptions for home medications. Outpatient ultrasound ordered. Clinical Impression: - Bilateral arm and right leg edema - Medication management Disposition: - Discharge - Follow-Up: Outpatient ultrasound of right lower extremity tomorrow MDM Components Evaluation: - Number of Differential Diagnoses or Management Options: Bilateral arm and right leg edema, medication management - Amount and Complexity of Data Reviewed: Chest x-ray, CBC, CMP, EKG, electrolytes - Risk of Complication and Morbidity or Mortality: Mild hypertension, substance use, medication noncompliance Quality:SDOH Health Related Social Needs: No Data to Display PFSH All Active Problems (Updated 06/04/24 @ 21:14 by BECKIE Soto) Calf pain (Acute) Edema, peripheral (Acute) Cough (Acute) Cocaine abuse (Acute) Hernia, umbilical (Acute) Major depressive disorder, recurrent episode, severe (Acute) 02/19/24 [place] note Axillary abscess (Acute) Right hip pain (Acute) Right knee pain (Acute) Methamphetamine use (Acute) 06/08/22 Per [facility]. -hb Psychosis (Acute) 06/08/2022. [facility] Paranoid (Acute) IV drug abuse (Chronic) Herniated disc (Acute) Low back pain (Acute) Medication side effects (Acute) Screening for hyperlipidemia (Acute) Elevated liver enzymes (Acute) Medical History Bipolar disorder Hepatitis C s/p treatment with interferon Paranoid ideation ADHD Depression Anxiety Surgical History Presence of surgical screw in left hand History of surgery on arm S/P right rotator cuff repair Family History Mother Heart disease Father Diabetes Brother Diabetes Hypertension Cancer pancreatic, liver and lung Brother Diabetes Brother Diabetes Sister Cancer pancreatic cancer Social History (Updated 05/27/24 @ 08:41 by Brant Holder MD) Smoking/Tobacco Use Status: Current-Occasional Tobacco Type: cigarettes Quit status: considering quitting Second Hand Exposure: Yes Smoking risk assessment performed?: Yes Alcohol Intake: never Drug use: Daily Substance use type: crack/cocaine Details: Unclear what substances pt is using on a daily basis 02/07/24 Adopted: No Household members: other Details: girlfriend Housing: homeless Communication Needs: Hard of Hearing Education Level: master's degree Do you need help understanding health information?: Often 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 Pets and animals: No Sexually active: Yes Do you think of yourself as: straight/heterosexual Current gender identity: male What is your relationship status?: living with partner How often do you talk on the phone with friends or family?: once per week How often do you get together with friends or relatives?: twice per week Panel score (0-1 are the most socially isolated patients): 2 What type of physical activity do you participate in: regular exercise Duration: 45-60 minutes/day Frequency: 5-6 times per week Mihaela/Pentecostal: [employer] Special mihaela needs: No Seatbelt use: always Helmet use: Yes Drive intox or ride w/intox screw driver 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: No Do you feel safe at home: Yes Do you feel safe in your relationship?: Yes PAWSS Have you Been Recently Intoxicated or Drunk Within the Last 30 days?: No Have you Ever Experienced Previous Episodes of Alcohol Withdrawal?: No Have you ever Experienced Withdrawal Seizures?: No Have you ever Experienced Delirium Tremens(DT)s?: No Have you ever undergone Alcohol Rehabilitation Treatment (i.e, inpt ot outpatient treatment programs)?: No Have you ever Experienced Blackouts?: No Have you ever Combined Alcohol with other Downers within the last 90 days?: No Have you ever Combined Alcohol with any other Substance of Abuse during the last 90 days?: No Positive Blood Alcohol level on Presentation? [PCS.BAL]: No Evidence of Increased Autonomic Activity (i.e. HR>120, tremor, sweating, agitation, nausea)?: No Result: 0
[2024-06-04] MEDS: buPROPion-CR 150 MG TABCR 300 MG PO (20:45)
--- NOTE | 2024-06-04 20:47 | DI.RAD_ITS ---
Exam(s) XR CHEST 2V PA LATERAL EXAM: XR CHEST 2V PA LATERAL CLINICAL HISTORY: edema TECHNIQUE: 2D digital imaging was performed. Two views. COMPARISON: No exams were available for comparison FINDINGS: HEART: Normal size. Aorta: Not dilated. PULMONARY VASCULATURE: Normal. MEDIASTINUM: Unremarkable. LUNGS: Clear. PLEURAL SPACE: No pleural effusion or pneumothorax. BONE:Unremarkable degenerative changes in the shoulders and spine. SOFT TISSUES: Unremarkable. IMPRESSION: No acute abnormality. DATA REPOSITORY: RADIATION DOSE DELIVERED:
[2024-06-04 20:52] LABS: ALT 33 U/L (16-63); AST 23 U/L (15-37); Albumin 3.3 g/dL (3.4-5.0); Alkaline Phosphatase 66 U/L (46-116); Anion Gap 7.6 mmol/L (3-11); BUN 21 mg/dL (7-18); Bilirubin, Total 0.3 mg/dL (0.2-1.0); CO2 29.4 mmol/L (21.0-32.0); CREATININE 0.6 mg/dL (0.70-1.30); Chloride 107 mmol/L (98-107); Estimated GFR 116.15 (mL/min/1.73m2); Glucose 112 mg/dL (74-106); NT-proBNP 177 pg/mL (<300); Potassium 3.8 mmol/L (3.5-5.1); Sodium 144 mmol/L (136-145); Total Protein 6.7 g/dL (6.4-8.2)
--- NOTE | 2024-06-04 21:24 | DI.VRAD_ITS ---
PROCEDURE INFORMATION: Exam: XR Chest Exam date and time: 06/04/2024 8:43 PM Age: 53 years old Clinical indication: Other: Edema TECHNIQUE: Imaging protocol: Radiologic exam of the chest. Views: 2 views. COMPARISON: CT CHEST/ABD/PEL W 11/23/2022 12:05 AM FINDINGS: Lungs: Unremarkable. No consolidation. Pleural spaces: Unremarkable. No pleural effusion. No pneumothorax. Heart/Mediastinum: Unremarkable. No cardiomegaly. Bones/joints: Unremarkable. IMPRESSION: No acute findings. Dictated and Authenticated by: Jere Blanton MD. Orderin Mil Gamble MD
== END 2024-06-04 21:20 | disposition home or self-care (01) ==
PROVIDERS: Emergency Provider Physician Assistant; PCP Physical Therapist
DX: M79.671 Pain in right foot (principal); R06.09 Other forms of dyspnea; R00.1 Bradycardia, unspecified; F14.10 Cocaine abuse, uncomplicated; Z59.00 Homelessness unspecified
CPT/HCPCS: 80053; 93005; 96374; 99284; 71046; 83735; 83880; 85025; 93010; J1940

== ENCOUNTER 2024-06-20 09:47 | Emergency (ER) | payer MEDICAID, SELFPAY ==
[2024-06-20 09:51] VITALS: BP 135/84; PULSE 72; RESP 18; TEMP 36.5; O2SAT 94
[2024-06-20 09:55] VITALS: BP 135/84; PULSE 72; RESP 18; TEMP 36.5; O2SAT 94
--- NOTE | 2024-06-20 10:04 | ED.GENADUL_ITS ---
Discharge Plan Disposition Patient Disposition: Home Condition: Stable Discharge Details Clinical Impression: Cellulitis of right forearm Primary Care Provider: Jef Balderas ED Provider: Dimas Bolaños Home Meds and New Rx's Prescriptions: New clindamycin HCl 150 mg capsule 150 mg PO TID 14 Days Qty: 42 0RF ketorolac 10 mg tablet 10 mg PO QID 5 Days Qty: 20 0RF Rx Instructions: maximum total duration of 5 days from all oral, intranasal, or parenteral formulations Continued ibuprofen 600 mg tablet 600 mg PO Q6H PRN acetaminophen 500 mg tablet 1,000 mg PO Q6H PRN cyclobenzaprine 5 mg tablet 5 mg PO Q8H PRN Patient Comments: need rx gabapentin 300 mg capsule 800 mg PO TID Patient Comments: needs rx meloxicam 7.5 mg tablet 15 mg PO DAILY Patient Comments: needs rx omeprazole 20 mg capsule,delayed release(DR/EC) 20 mg PO DAILY diclofenac sodium 1 % gel 2 g topical QID ziprasidone HCl 40 mg capsule 40 mg PO DAILY Patient Comments: needs rx Rx Instructions: give with food (meal/snack) gabapentin 600 mg tablet 600 mg PO TID Qty: 30 0RF Patient Comments: needs rx bupropion HCl 300 mg tablet extended release 24 hr 300 mg PO DAILY Qty: 10 1RF Patient Comments: needs rx ziprasidone HCl [Geodon] 40 mg capsule 40 mg PO BID Qty: 4 0RF Rx Instructions: give with food (meal/snack) gabapentin [Neurontin] 600 mg tablet 600 mg PO TID Qty: 6 0RF cyclobenzaprine 5 mg tablet 5 mg PO TID Qty: 6 0RF buprenorphine-naloxone [Suboxone] 12-3 mg film 2 film sublingual DAILY Patient Comments: PLACE TWO FILMS UNDER THE TONGUE EVERY DAY FOR 7 DAYS bupropion HCl 300 mg tablet extended release 24 hr 300 mg PO QAM Qty: 7 0RF gabapentin [Neurontin] 300 mg capsule 300 mg PO TID Qty: 9 0RF ziprasidone HCl 40 mg capsule 40 mg PO DAILY Qty: 7 0RF Rx Instructions: give with food (meal/snack) furosemide [Lasix] 20 mg tablet 20 mg PO DAILY Qty: 5 0RF Discharge Instructions Instructions: Clindamycin (Systemic), Ketorolac (Systemic), Cellulitis (Skin Infection), Adult ED Additional Instructions: You were seen in the emergency department for the soft tissue infection secondary to IV drug use in your right forearm, there is not a appear to be a fluid-filled pocket on palpation as feels very hard and not fluid-filled. I offered you an ultrasound to confirm this but you refused. I have provided you with 14 days of clindamycin as you have tolerated this in the past due to your Bactrim allergy. I have sent you a prescription for ketorolac, use this in p lace of your ibuprofen. Take 1000 mg of Tylenol 3 times per day, please return for any worsening signs of infection like red streaking up the arm, severe redness, pain, fever, weakness or nausea. Referrals: Jef Balderas [Primary Care Provider] - Discharge Data Discharge Date/Time-TO BE ENTERED AT DEPARTURE: 06/20/24 10:23 HPI General Date/Time Provider Initiated Documentation: 06/20/24 09:51 . HPI Narrative: 53 year-old male presents to ED today by POV/ambulating with a chief complaint of abscess or infection to R forearm from IVDU with onset one day ago, states he has not shot up in years. Quality described as redness, hardness to touch with some bruising, no radiation to red streaking up the arm, fever, purulent drainage, nausea, weakness. Severity is described as moderate to severe. Palliating factors include nothing specific attempted. Provoking factors include touch. Patient not anticoagulated. Related Data Home Medications ?Medication ?Instructions ?Recorded ?Confirmed buprenorphine 12 mg-naloxone 3 mg 2 film sublingual DAILY 09/22/22 06/20/24 sublingual film (Suboxone) bupropion HCl 300 mg 24 hr tablet, 300 mg PO DAILY #10 tabs 02/08/24 06/04/24 extended release gabapentin 600 mg tablet 600 mg PO TID #30 tabs 02/08/24 06/04/24 acetaminophen 500 mg tablet 1,000 mg PO Q6H PRN 02/20/24 06/20/24 cyclobenzaprine 5 mg tablet 5 mg PO Q8H PRN 02/20/24 06/20/24 diclofenac sodium 1 % topical gel 2 g topical QID 02/20/24 06/20/24 gabapentin 300 mg capsule 800 mg PO TID 02/20/24 06/20/24 ibuprofen 600 mg tablet 600 mg PO Q6H PRN 02/20/24 06/20/24 meloxicam 7.5 mg tablet 15 mg PO DAILY 02/20/24 06/20/24 omeprazole 20 mg capsule,delayed 20 mg PO DAILY 02/20/24 06/20/24 release ziprasidone HCl 40 mg capsule 40 mg PO DAILY 02/20/24 06/20/24 cyclobenzaprine 5 mg tablet 5 mg PO TID #6 tabs 02/23/24 06/04/24 gabapentin 600 mg tablet 600 mg PO TID #6 tabs 02/23/24 06/04/24 (Neurontin) ziprasidone HCl 40 mg capsule 40 mg PO BID #4 caps 02/23/24 06/04/24 (Geodon) bupropion HCl 300 mg 24 hr tablet, 300 mg PO QAM #7 tabs 06/04/24 06/20/24 extended release furosemide 20 mg tablet (Lasix) 20 mg PO DAILY #5 tabs 06/04/24 06/20/24 gabapentin 300 mg capsule 300 mg PO TID #9 caps 06/04/24 (Neurontin) ziprasidone HCl 40 mg capsule 40 mg PO DAILY #7 caps 06/04/24 clindamycin HCl 150 mg capsule 150 mg PO TID 14 days #42 caps 06/20/24 ketorolac 10 mg tablet 10 mg PO QID 5 days #20 tabs 06/20/24 Previous Rx's ?Medication ?Instructions ?Recorded bupropion HCl 300 mg 24 hr tablet, 300 mg PO DAILY #10 tabs 02/08/24 extended release gabapentin 600 mg tablet 600 mg PO TID #30 tabs 02/08/24 cyclobenzaprine 5 mg tablet 5 mg PO TID #6 tabs 02/23/24 gabapentin 600 mg tablet 600 mg PO TID #6 tabs 02/23/24 (Neurontin) ziprasidone HCl 40 mg capsule 40 mg PO BID #4 caps 02/23/24 (Geodon) bupropion HCl 300 mg 24 hr tablet, 300 mg PO QAM #7 tabs 06/04/24 extended release furosemide 20 mg tablet (Lasix) 20 mg PO DAILY #5 tabs 06/04/24 gabapentin 300 mg capsule 300 mg PO TID #9 caps 06/04/24 (Neurontin) ziprasidone HCl 40 mg capsule 40 mg PO DAILY #7 caps 06/04/24 clindamycin HCl 150 mg capsule 150 mg PO TID 14 days #42 caps 06/20/24 ketorolac 10 mg tablet 10 mg PO QID 5 days #20 tabs 06/20/24 Allergies Allergy/AdvReac Type Severity Reaction Status Date / Time onion Allergy Intermediate Hives Verified 06/20/24 09:53 naproxen Allergy Mild Unknown Verified 06/20/24 09:53 Sulfa (Sulfonamide Allergy Unknown Unknown Verified 06/20/24 09:53 Antibiotics) General Stated Complaint: Cellulitis CHUYITA: 3 Review of Systems All systems reviewed & are unremarkable except as noted in HPI and below Exam Narrative Exam Narrative: GENERAL APPEARANCE: Well-nourished, non-toxic, awake and alert, atraumatic, no acute distress. SKIN: Warm, pink, dry, diffuse erythema 10 x 8 cm to the right forearm, indurated without fluctuant swelling, no erysipelas, right radial pulse 2+, sensation intact distally, no lymphadenitis HEAD: Normocephalic, atraumatic, normal hair distribution for gender/age. EYES: Normal conjunctiva, no exudates on lids/lashes. ENT: Nares patent, no circumoral cyanosis, no facial swelling NECK: Supple, trachea midline, painless cervical ROM. LUNGS/CHEST: Non-labored respirations, normal A/P diameter, symmetrical expansion, no chest wall deformity HEART (CV/PV): Regular rate R radial pulse 2+, no peripheral edema, no JVD. ABDOMEN: Soft, non-distended, no guarding. MSK: Normal ROM, no swelling/deformity to bilateral UEs or LEs, moving all extremities without weakness, no cyanosis, spine midline without tenderness, normal curvature. NEURO: Mental Status AAOx4 - alert to person, place, time, events No facial droop, no forehead involvement. Motor: No focal weakness - strength 5/5 in bilateral UEs and LEs, proximal and distal, symmetric. Sensory: sensation intact to light touch globally. Gait normal: patient ambulated without ataxia into ED room. PSYCH: euthymic, cooperative, pleasant, appropriate speech Course Vital Signs Vital signs: Vital Signs Temperature 36.5 C 06/20/24 09:51 Pulse 72 06/20/24 09:51 Respiratory Rate 18 06/20/24 09:51 Blood Pressure 135/84 06/20/24 09:51 Pulse Oximetry 94 06/20/24 09:51 Temperature 36.5 C 06/20/24 09:55 Temperature Source Oral 06/20/24 09:55 Pulse 72 06/20/24 09:55 Respiratory Rate 18 06/20/24 09:55 Blood Pressure 135/84 06/20/24 09:55 Pulse Oximetry 94 06/20/24 09:55 Medical Decision Making This dictation utilizes [id number] dictation software and may contain u nedited grammatical errors. 53 year-old male presents to ED today by POV/ambulating with a chief complaint of abscess or infection to R forearm from IVDU with onset one day ago, states he has not shot up in years. Quality described as redness, hardness to touch with some bruising, no radiation to red streaking up the arm, fever, purulent drainage, nausea, weakness. Severity is described as moderate to severe. Palliating factors include nothing specific attempted. Provoking factors include touch. Patients' medical history: substance abuse, psychosis, hepatitis C. Family and social history: Recent relapse to IV drug use after years without. Pertinent exam findings / vital signs include diffuse erythema 10 x 8 cm to the right forearm, indurated without fluctuant swelling, no erysipelas, right radial pulse 2+, sensation intact distally, no lymphadenitis, afebrile and nontoxic. Differential / pathologies of concern include cellulitis, abscess. Diagnostic studies of: -none. Interventions of: -Rx for clindamycin. ED Course/Assessment/Plan: 53-year-old male with recent relapse to IV drug use presents with cellulitis from IVDU site to right forearm, no evidence of abscess, no lymphadenitis spreading upward from the arm he is neurovascularly intact distally, he is allergic to sulfa drugs I Rx'd clindamycin to cover for MRSA, stressed strict return criteria for increasing swelling, fever, red streaking up the arm. Findings not consistent with abscess, sepsis, nontoxic vitals. Disposition of cellulitis of right forearm. Patient verbalized understanding of the plan and return to ED criteria and engaged in shared decision making. Medical Records Medical records reviewed: Yes I reviewed the patient's medical records. 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 -hb Psychosis (Acute) 06/08/2022. [facility] Paranoid (Acute) IV drug abuse (Chronic) Herniated disc (Acute) Low back pain (Acute) Medication side effects (Acute) Screening for hyperlipidemia (Acute) Elevated liver enzymes (Acute) Medical History Bipolar disorder Hepatitis C s/p treatment with interferon Paranoid ideation ADHD Depression Anxiety Surgical History Presence of surgical screw in left hand History of surgery on arm S/P right rotator cuff repair Family History Mother Heart disease Father Diabetes Brother Diabetes Hypertension Cancer pancreatic, liver and lung Brother Diabetes Brother Diabetes Sister Cancer pancreatic cancer Social History (Updated 05/27/24 @ 08:41 by Barnt Holder MD) Smoking/Tobacco Use Status: Current-Occasional Tobacco Type: cigarettes Quit status: considering quitting Second Hand Exposure: Yes Smoking risk assessment performed?: Yes Alcohol Intake: never Drug use: Daily Substance use type: crack/cocaine and IV drugs Details: Unclear what substances pt is using on a daily basis 02/07/24 Adopted: No Household members: other Details: girlfriend Housing: homeless Communication Needs: Hard of Hearing Education Level: master's degree Do you need help understanding health information?: Often 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 Pets and animals: No Sexually active: Yes Do you think of yourself as: straight/heterosexual Current gender identity: male What is your relationship status?: living with partner How often do you talk on the phone with friends or family?: once per week How often do you get together with friends or relatives?: twice per week Panel score (0-1 are the most socially isolated patients): 2 What type of physical activity do you participate in: regular exercise Duration: 45-60 minutes/day Frequency: 5-6 times per week Mihaela/Hinduism: Judaism Special mihaela needs: No Seatbelt use: always Helmet use: Yes Drive intox or ride w/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
== END 2024-06-20 10:23 | disposition home or self-care (01) ==
PROVIDERS: Emergency Provider Physician Assistant; PCP Physical Therapist
DX: L03.113 Cellulitis of right upper limb (principal); F17.210 Nicotine dependence, cigarettes, uncomplicated
CPT/HCPCS: 99283

== ENCOUNTER 2024-07-21 21:56 | Emergency (ER) | payer MEDICAID, SELFPAY ==
[2024-07-21 21:56] VITALS: BP 146/89; PULSE 78; RESP 18; TEMP 36.5; O2SAT 98
[2024-07-21] MEDS: Cyclobenzaprine 10 MG TAB PO (22:28)
[2024-07-21] MEDS: Ketorolac 15 MG/ML VIAL IVP (22:28)
[2024-07-21 23:13] LABS: Abs Immature Grans 0.02 10^3/uL (0.0-0.06); Absolute Basophil Count 0.03 10^3/uL (0.0-0.2); Absolute Eosinophil Count 0.16 10^3/uL (0.0-0.7); Absolute Lymphocyte Count 1.84 10^3/uL (1.2-3.4); Absolute Monocyte Count 0.66 10^3/uL (0.1-0.8); Absolute Neutrophil Count 5.71 10^3/uL (1.2-6.7); Basophils % 0.4 %; Eosinophils % 1.9 %; HCT 40.8 % (40.0-50.0); HGB 13.8 g/dL (13.5-17.5); Immature Grans % 0.2 %; Lymphocytes % 21.9 %; MCH 33.1 pg (27.0-33.0); MCHC 33.8 % (32.0-36.0); MCV 98 fL (80-95); MPV 9.3 fL (8.0-11.0); Monocytes % 7.8 %; Neutrophils % 67.8 %; Platelet Count 175 10^3/uL (130-400); RBC 4.17 10^6/uL (4.36-5.78); RDW 11.6 % (11.8-14.1); RDW-SD 41.8 fL; WBC 8.42 10^3/uL (4.4-10.8)
[2024-07-21 23:15] LABS: ESR 11 mm/hr (0-20)
[2024-07-21 23:21] LABS: C-Reactive Protein < 0.50 mg/dL (<or=0.5)
--- NOTE | 2024-07-22 00:01 | ED.GENADUL_ITS ---
Discharge Plan Disposition Patient Disposition: Home Condition: Good Discharge Details Clinical Impression: Low back pain, Sciatic leg pain Primary Care Provider: Jef Balderas ED Provider: Lissette Sharma Home Meds and New Rx's Prescriptions: New cyclobenzaprine 5 mg tablet 5 mg PO TID PRNQty: 15 0RF Continued acetaminophen 500 mg tablet 1,000 mg PO Q6H PRN gabapentin 300 mg capsule 800 mg PO TID Patient Comments: needs rx meloxicam 7.5 mg tablet 15 mg PO DAILY Patient Comments: needs rx omeprazole 20 mg capsule,delayed release(DR/EC) 20 mg PO DAILY diclofenac sodium 1 % gel 2 g topical QID ziprasidone HCl 40 mg capsule 40 mg PO DAILY Patient Comments: needs rx Rx Instructions: give with food (meal/snack) bupropion HCl 300 mg tablet extended release 24 hr 300 mg PO DAILY Qty: 10 1RF Patient Comments: needs rx buprenorphine-naloxone [Suboxone] 12-3 mg film 2 film sublingual DAILY Patient Comments: PLACE TWO FILMS UNDER THE TONGUE EVERY DAY FOR 7 DAYS furosemide [Lasix] 20 mg tablet 20 mg PO DAILY Qty: 5 0RF Discontinued ibuprofen 600 mg tablet 600 mg PO Q6H PRN cyclobenzaprine 5 mg tablet 5 mg PO Q8H PRN Patient Comments: need rx gabapentin 600 mg tablet 600 mg PO TID Qty: 30 0RF Patient Comments: needs rx ziprasidone HCl [Geodon] 40 mg capsule 40 mg PO BID Qty: 4 0RF Rx Instructions: give with food (meal/snack) gabapentin [Neurontin] 600 mg tablet 600 mg PO TID Qty: 6 0RF cyclobenzaprine 5 mg tablet 5 mg PO TID Qty: 6 0RF bupropion HCl 300 mg tablet extended release 24 hr 300 mg PO QAM Qty: 7 0RF gabapentin [Neurontin] 300 mg capsule 300 mg PO TID Qty: 9 0RF ziprasidone HCl 40 mg capsule 40 mg PO DAILY Qty: 7 0RF Rx Instructions: give with food (meal/snack) Discharge Instructions Instructions: Low back pain in adults, Sciatica ED Additional Instructions: Cyclobenzaprine up to every 8 hours as needed for pain. Continue taking all of your home medications. Call your primary care doctor to schedule an appointment for within the next 72 hours to followup on your visit here. Follow up with your surgeon at [facility]. Return to the emergency department for new or worsening symptoms including fever, worsening numbness or weakness, urinary or bowel incontinence, or if you have any other concerns. HPI General Mode of arrival: EMS . Date/Time Provider Initiated Documentation: 07/21/24 22:01 . Limitations to Documentation: no limitations . Information obtained by: patient and old records reviewed . HPI Narrative: 53yo M with hx chronic back pain, prior IVDU, presenting via EMS for back pain. Received 1g tylenol and 100mcg fentanyl from EMS [employer]PER[employer]. Reports severe low back pain radiating into his right leg which is typical of his usual pain but has been worse for the past 5 days and preventing him from sleeping. Denies LLE pain to me. Pain was aggravated by walking around frequently today. Has right leg numbness and foot drop at baseline, this is not worse today. Known herniated discs per patient (not sure which ones, thinks L3-L5) and reports surgery planned at [facility] [place]. No bowel or bladder incontinence. No saddle anesthesia. No recent spinal surgery or instrumentation. No fevers, chills, or rash. Otherwise in his usual state of health. Related Data Home Medications ?Medication ?Instructions ?Recorded ?Confirmed buprenorphine 12 mg-naloxone 3 mg 2 film sublingual DA JM 09/22/22 07/21/24 sublingual film (Suboxone) bupropion HCl 300 mg 24 hr tablet, 300 mg PO DAILY #10 tabs 02/08/24 07/21/24 extended release acetaminophen 500 mg tablet 1,000 mg PO Q6H PRN 07/21/24 diclofenac sodium 1 % topical gel 2 g topical QID 02/0607/21/24 gabapentin 300 mg capsule 800 mg PO TID 02/20/2407/21 meloxicam 7.5 mg tablet 15 mg PO DAILY 02/20/2407/07 omeprazole 20 mg capsule,delayed 20 mg PO DAILY 07/21/24 release ziprasidone HCl 40 mg capsule 40 mg PO DAILY 02/20/24 07/21/24 furosemide 20 mg tablet (Lasix) 20 mg PO DAILY #5 tabs 06/04/24 07/21/24 cyclobenzaprine 5 mg tablet 5 mg PO TID PRN #15 tabs 0 07/22/24 Previous Rx's ?Medication ?Instructions ?Recorded bupropion HCl 300 mg 24 hr tablet, 300 mg PO DAILY #10 tabs 02/08/24 extended release furosemide 20 mg tablet (Lasix) 20 mg PO DAILY #5 tabs 06/04/24 cyclobenzaprine 5 mg tablet 5 mg PO TID PRN #15 tabs 0 07/22/24 Allergies Allergy/AdvReac Type Severity Reaction Status Date / Time onion Allergy Intermediate Hives Verified 07/21/24 22:03 naproxen Allergy Mild Unknown Verified 07/21/24 22:03 Sulfa (Sulfonamide Allergy Unknown Unknown Verified 07/21/24 22:03 Antibiotics) General Stated Complaint: Nk/Back Pain CHUYITA: 3 Review of Systems Narrative: see HPI Exam Narrative Exam Narrative: General: Alert, well appearing, well nourished, in no acute distress. Head: Normocephalic, atraumatic Neck: Trachea midline, ?Neck supple. Cardiac: ?No cyanosis. 2+ pedal pulses bilaterally, brisk capillary refill at toes Resp: No respiratory distress. Speaking in full sentences. Abd: ?Soft, non-distended, nontender Extremities: ?No deformities.? No peripheral edema. Neuro: ? GCS 15.? Motor- 5/5 strength throughout LLE Strength testing throughout RLE limited 2/t to pain; does have full antigravity Sensation- Diminished to light touch LLE L3/L4/L5 distribution. No saddle an esthesia. Rectal: Pt refused Reflexes- 2/4 achilles & patellar, no clonus SLR: + on right Gait/station: ?Normal stance.? No truncal ataxia. Steady gait. Foot drop on right. Course Vital Signs Vital signs: Vital Signs Temperature 36.5 C 07/21/24 21:56 Pulse 78 07/21/24 21:56 Respiratory Rate 18 07/21/24 21:56 Blood Pressure 146/89 H 07/21/24 21:56 Pulse Oximetry 98 07/21/24 21:56 Temperature 36.5 C 07/21/24 21:56 Temperature Source Oral 07/21/24 21:56 Pulse 78 07/21/24 21:56 Respiratory Rate 18 07/21/24 21:56 Blood Pressure 146/89 H 07/21/24 21:56 Blood Pressure Position Sitting 07/21/24 21:56 Pulse Oximetry 98 07/21/24 21:56 Oxygen Delivery Method Room Air 07/21/24 21:56 Oxygen Flow Rate 0 07/21/24 21:56 Pain Level 7 07/21/24 22:28 Lab/Test Results Lab/Test Results: Laboratory Tests Range/Units 07/21/24 23:04 WBC (4.4-10.8) 10^3/uL 8.42 RBC (4.36-5.78) 10^6/uL 4.17 L Hgb (13.5-17.5) g/dL 13.8 Hct (40.0-50.0) % 40.8 MCV (80-95) fL 98 H MCH (27.0-33.0) pg 33.1 H MCHC (32.0-36.0) % 33.8 RDW (11.8-14.1) % 11.6 L Plt Count (130-400) 10^3/uL 175 MPV (8.0-11.0) fL 9.3 Immature Gran % % 0.2 Neutrophils % % 67.8 Lymphocytes % % 21.9 Monocytes % % 7.8 Eosinophils % % 1.9 Basophils % % 0.4 Nucleated RBC % (0.0-0.3) % 0.0 Absolute Neutrophils (1.2-6.7) 10^3/uL 5.71 Absolute Lymphocytes (1.2-3.4) 10^3/uL 1.84 Absolute Monocytes (0.1-0.8) 10^3/uL 0.66 Absolute Eosinophils (0.0-0.7) 10^3/uL 0.16 Absolute Basophils (0.0-0.2) 10^3/uL 0.03 ESR (0-20) mm/hr 11 C-Reactive Protein (<or=0.5) mg/dL < 0.50 Medical Decision Making 53yo M with hx chronic back pain, prior IVDU, presenting via EMS for back pain. Received 1g tylenol and 100mcg fentanyl from EMS [facility]GR[employer] SUPERVIS[facility]. Reports severe low back pain radiating into his right leg which is typical of his usual pain but has been worse for the past 5 days and worse this evening after walking around frequently today. Vital signs reassuring on arrival. History, symptoms, and exam consistent with known herniated discs. Does have diminished sensation and foot drop RLE which he reports is not worse than usual. No saddle anesthesia or bowel/bladder issues to suggest cauda equina (pt refused rectal). CBC, ESR, and CRP reassuring. Not suggestive of acute cord compression, cauda equinae, spinal epdiural abscess, epidural hematoma. Would not transfer for MRI or get CT imaging here. Likely aggravation of chronic back pain for which he currently has intervention planned. Will add toradol and flexeril here, offered zofran for post-fentanyl nausea which patient refused. On reassessment patient reports pain is tolerable. On subsequent reassessment appears to be sleeping comfortably; will allow to rest in the ED with prn tylenol/toradol/flexeril as needed. Ambulated in department steadily independently. Voided with post void residual 0. Appropriate for discharge home to followup with his outpatient providers. He does not have a ride; will allow to remain in the ED overnight pending availability of bus in the morning. Discharged home; discharge instructions and return precautions were reviewed with patient who verbalized understanding. All questions were answered and he is in full agreement with the plan. Medical Records Medical records reviewed: Yes I reviewed the patient's medical records. Lab Data Lab results reviewed: Yes I reviewed the patient's lab results. Labs: Laboratory Tests Range/Units 07/21/24 23:04 WBC (4.4-10.8) 10^3/uL 8.42 RBC (4.36-5.78) 10^6/uL 4.17 L Hgb (13.5-17.5) g/dL 13.8 Hct (40.0-50.0) % 40.8 MCV (80-95) fL 98 H MCH (27.0-33.0) pg 33.1 H MCHC (32.0-36.0) % 33.8 RDW (11.8-14.1) % 11.6 L Plt Count (130-400) 10^3/uL 175 MPV (8.0-11.0) fL 9.3 Immature Gran % % 0.2 Neutrophils % % 67.8 Lymphocytes % % 21.9 Monocytes % % 7.8 Eosinophils % % 1.9 Basophils % % 0.4 Nucleated RBC % (0.0-0.3) % 0.0 Absolute Neutrophils (1.2-6.7) 10^3/uL 5.71 Absolute Lymphocytes (1.2-3.4) 10^3/uL 1.84 Absolute Monocytes (0.1-0.8) 10^3/uL 0.66 Absolute Eosinophils (0.0-0.7) 10^3/uL 0.16 Absolute Basophils (0.0-0.2) 10^3/uL 0.03 ESR (0-20) mm/hr 11 C-Reactive Protein (<or=0.5) mg/dL < 0.50 PFSH All Active Problems (Updated 07/22/24 @ 05:16 by Lissette Sharma MD) Sciatic leg pain (Acute) Low back pain (Acute) Calf pain (Acute) Cough (Acute) Cocaine abuse (Acute) Major depressive disorder, recurrent episode, severe (Acute) 02/19/[facility] [place] [facility] Axillary abscess (Acute) Right hip pain (Acute) Right knee pain (Acute) 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 -hb Psychosis (Acute) 06/08/2022. [facility] ED Paranoid (Acute) IV drug abuse (Chronic) Herniated disc (Acute) Low back pain (Acute) Medication side effects (Acute) Screening for hyperlipidemia (Acute) Elevated liver enzymes (Acute) Medical History Bipolar disorder Hepatitis C s/p treatment with interferon Paranoid ideation ADHD Depression Anxiety Surgical History Presence of surgical screw in left hand History of surgery on arm S/P right rotator cuff repair Family History Mother Heart disease Father Diabetes Brother Diabetes Hypertension Cancer pancreatic, liver and lung Brother Diabetes Brother Diabetes Sister Cancer pancreatic cancer Social History (Updated 05/27/24 @ 08:41 by Brant Holder MD) Smoking/Tobacco Use Status: Current-Occasional Tobacco Type: cigarettes Quit status: considering quitting Second Hand Exposure: Yes Smoking risk assessment performed?: Yes Alcohol Intake: never Drug use: Rarely Substance use type: marijuana and IV drugs Details: states he doesn't use any drugs but marijuana 07/21/24 Adopted: No Household members: other Details: girlfriend Housing: other Communication Needs: Hard of Hearing Education Level: master's degree Do you need help understanding health information?: Often 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 Pets and animals: No Sexually active: Yes Do you think of yourself as: straight/heterosexual Current gender identity: male What is your relationship status?: living with partner How often do you talk on the phone with friends or family?: once per week How often do you get together with friends or relatives?: twice per week Panel score (0-1 are the most socially isolated patients): 2 What type of physical activity do you participate in: regular exercise Duration: 45-60 minutes/day Frequency: 5-6 times per week Mihaela/Samaritan: Amish Special mihaela needs: No Seatbelt use: always Helmet use: Yes Drive intox or ride w/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
== END 2024-07-22 05:28 | disposition home or self-care (01) ==
PROVIDERS: Emergency Provider Student in an Organized Health Care Education/Training Program; PCP Physical Therapist
DX: M54.42 Lumbago with sciatica, left side (principal); M54.41 Lumbago with sciatica, right side
CPT/HCPCS: 85652; 96374; 99284; 85025; 86140; 99283; J1885

== ENCOUNTER 2024-10-03 11:23 | Emergency (ER) | payer MEDICAID, SELFPAY ==
[2024-10-03 11:25] VITALS: BP 138/76; PULSE 86; RESP 18; TEMP 36.6; O2SAT 98
[2024-10-03 11:27] VITALS: BP 138/76; PULSE 86; RESP 18; TEMP 36.6; O2SAT 98
--- NOTE | 2024-10-03 12:00 | DI.RAD_ITS ---
Exam(s) XR CHEST 2V PA LATERAL EXAM: XR CHEST 2V PA LATERAL CLINICAL HISTORY: Cough, URI symptoms TECHNIQUE: 2D digital imaging was performed of the chest. Two images were obtained. PA and lateral views were obtained. COMPARISON: CR,XR XR CHEST 2V PA LATERAL from 06/04/2024 FINDINGS: MEDIASTINUM: Normal. HEART: Normal. PULMONARY VASCULATURE: Normal. LUNGS: Clear. PLEURAL SPACE: No pleural effusion or pneumothorax. BONE:Within normal limits for the patient's age. OTHER FINDINGS:Normal. IMPRESSION: No acute pulmonary findings. DATA REPOSITORY: RADIATION DOSE DELIVERED:
--- NOTE | 2024-10-03 12:42 | ED.GENADUL_ITS ---
Discharge Plan Disposition Patient Disposition: Home Condition: Stable Discharge Details Clinical Impression: Cellulitis of left foot, Plantar wart of left foot, Viral URI, Degenerative arthritis of lumbar spine Primary Care Provider: Jef Balderas ED Provider: Kylie Calderon Home Meds and New Rx's Prescriptions: New cephalexin 500 mg tablet 500 mg PO BID 7 Days Qty: 14 0RF lidocaine 5 % adhesive patch,medicated 1 patch topical DAILY Qty: 15 0RF Rx Instructions: leave on most painful area for up to 12 hrs Continued acetaminophen 500 mg tablet 1,000 mg PO Q6H PRN gabapentin 300 mg capsule 800 mg PO TID Patient Comments: needs rx diclofenac sodium 1 % gel 2 g topical QID ziprasidone HCl 40 mg capsule 40 mg PO DAILY Patient Comments: needs rx Rx Instructions: give with food (meal/snack) bupropion HCl 300 mg tablet extended release 24 hr 300 mg PO DAILY Qty: 10 1RF Patient Comments: needs rx cyclobenzaprine 5 mg tablet 5 mg PO TID PRNQty: 15 0RF buprenorphine-naloxone [Suboxone] 12-3 mg film 2 film sublingual DAILY Patient Comments: PLACE TWO FILMS UNDER THE TONGUE EVERY DAY FOR 7 DAYS Discharge Instructions Instructions: Cough, runny nose, and the common cold, Cellulitis (Skin Infection), Adult ED, Degenerative Disc Disease ED Additional Instructions: No evidence of pneumonia on chest x-ray. I do suspect that you have a viral URI. You may take [id number] cough and cold remedies as directed. A prescription for lidocaine patch was sent to the pharmacy on file you can place to the most painful area up to 24 hours and leave off for 24 hours. I do suspect that you have a early infection noted to your left lower foot. You have some blisters on there and some plantar warts. Please keep this area clean and dry and covered with a bandage. Please take the antibiotic as directed twice a day with yogurt or a probiotic. Finish all the antibiotics. Wash with soap and water daily and apply a dry dressing. Allow to air dry at least 2 hours a day. Follow up with primary care provider in 3-5 days. Return to ED sooner if any worsening chest pain, shortness of breath, coughing up any phlegm, fever greater than 100.8, chills or concerns. Please take Tylenol or Ibuprofen with food every 4-6 hours as needed for pain and swelling. Referrals: Jef Balderas [Primary Care Provider, Medicine] - 3 days Referral Note: ER follow up call for appt. Kaur Gallagher [ NON-[facility] STAFF PHYSICIAN, Medicine] - 1 week Referral Note: ER follow up call for appt HPI General Mode of arrival: ambulatory . Date/Time Provider Initiated Documentation: 10/03/24 11:30 . Limitations to Documentation: no limitations . Information obtained by: patient, RN notes reviewed and old records reviewed . HPI Narrative: 54-year-old male patient here with URI type symptoms, productive cough with green phlegm and coughing for approximately a week or 2. He does endorse daily smoking. He states that he also has had some tenderness to his left plantar surface of his foot for the last 2 days. He is sleepy reports marijuana denies any other drugs or alcohol. Does have a history of bipolar disorder hepatitis C, ADHD depression anxiety. Related Data Home Medications ?Medication ?Instructions ?Recorded ?Confirmed buprenorphine 12 mg-naloxone 3 mg 2 film sublingual DA JM 09/22/22 10/03/24 sublingual film (Suboxone) bupropion HCl 300 mg 24 hr tablet, 300 mg PO DAILY #10 tabs 02/08/24 10/03/24 extended release acetaminophen 500 mg tablet 1,000 mg PO Q6H PRN 10/03/24 diclofenac sodium 1 % topical gel 2 g topical QID 02/0610/03/24 gabapentin 300 mg capsule 800 mg PO TID 02/20/2410/03 ziprasidone HCl 40 mg capsule 40 mg PO DAILY 02/20/24 10/03/24 cyclobenzaprine 5 mg tablet 5 mg PO TID PRN #15 tabs 0 07/22/24 10/03/24 cephalexin 500 mg tablet 500 mg PO BID 7 days #14 tab s 10/03/24 lidocaine 5 % topical patch 1 patch topical DAILY #15 ea 10/03/24 Previous Rx's ?Medication ?Instructions ?Recorded bupropion HCl 300 mg 24 hr tablet, 300 mg PO DAILY #10 tabs 02/08/24 extended release cyclobenzaprine 5 mg tablet 5 mg PO TID PRN #15 tabs 0 07/22/24 cephalexin 500 mg tablet 500 mg PO BID 7 days #14 tab s 10/03/24 lidocaine 5 % topical patch 1 patch topical DAILY #15 ea 10/03/24 Allergies Allergy/AdvReac Type Severity Reaction Status Date / Time onion Allergy Intermediate Hives Verified 10/03/24 11:27 naproxen Allergy Mild Unknown Verified 10/03/24 11:27 Sulfa (Sulfonamide Allergy Unknown Unknown Verified 10/03/24 11:27 Antibiotics) General Stated Complaint: RespSymp CHUYITA: 3 Review of Systems All systems reviewed & are unremarkable except as noted in HPI and below Constitutional Constitutional: Reports as per HPI, Reports body ache(s), Reports daytime sleepiness, Reports fatigue and Reports headache(s) ENT Ears, Nose, Mouth, and Throat: Denies otalgia, Reports headache(s), Denies mouth lesions and Denies mouth pain Cardiovascular Cardiovascular: Denies dyspnea Respiratory Respiratory: Reports as per HPI, Reports change in phlegm color, Reports cough, Denies pain on inspiration, Denies pain with cough, Denies dyspnea, Denies stridor and Denies wheezing Gastrointestinal Gastrointestinal: Denies diarrhea, Denies nausea and Denies vomiting Musculoskeletal Musculoskeletal: Reports back pain, Reports arthralgias and Denies numbness Integumentary/Breasts Skin/Breast: Reports as per HPI, Reports new lesions (Plantars warts and blisters noted to left bottom of foot), Reports skin pain and Reports skin swelling (Left bottom of foot) Neurologic Neurologic: Reports headache(s) and Denies numbness Psychiatric Psychiatric: Reports irritability Endocrine Endocrine: Reports fatigue Allergic/Immunologic Allergic/Immunologic: Denies wheezing Exam Narrative Exam Narrative: Constitutional: Alert and oriented x3. Appears stated age. Normal body habitus. Patient seems sleepy during my assessment. Head: Normocephalic, no trauma. Eyes: Pupils PERRL, Red reflex noted, EOM's intact. Eyelids symmetrical without lesions, discharge, or swelling. ENT: Bilateral TM's WNL, External ear normal to inspection, no mastoid TTP, swelling, or erythema, Nasal turbinates WNL, no nasal discharge. Normal dentition, Posterior pharynx WNL, no exudate. Chest: RRR, Normal S1, S2, distal pulses intact. Resp: Lungs clear to auscultation bilaterally, no wheezes, rales, or rhonchi. Abdomen: Soft, non-distended, Normoactive bowel sounds all 4 quads. Musculoskeletal: Normal gait, Moves all 4 extremities without difficulty. Seems stiff. Skin: Left bottom of foot, plantar warts, multiple, superficial blisters with surrounding induration, no drainage. Capillary refill less than 2 sec. Neurologic: Cranial nerves II-XII intact. Alert and oriented x 3. Motor: No deficits noted. Sensory: Intact bilaterally all 4 extremities. Hematologic/Lymphatic: No ecchymosis, no lymphadenopathy. Course Vital Signs Vital signs: Vital Signs Temperature 36.6 C 10/03/24 11:25 Pulse 86 10/03/24 11:25 Respiratory Rate 18 10/03/24 11:25 Blood Pressure 138/76 10/03/24 11:25 Pulse Oximetry 98 10/03/24 11:25 Temperature 36.6 C 10/03/24 11:27 Pulse 86 10/03/24 11:27 Respiratory Rate 18 10/03/24 11:27 Blood Pressure 138/76 10/03/24 11:27 Pulse Oximetry 98 10/03/24 11:27 Oxygen Delivery Method Room Air 10/03/24 11:27 Oxygen Flow Rate 0 10/03/24 11:27 Pain Level 8 10/03/24 11:27 Medical Decision Making 54-year-old male patient here with URI type symptoms, productive cough with green phlegm and coughing for approximately a week or 2. He does endorse daily smoking. He states that he also has had some tenderness to his left plantar surface of his foot for the last 2 days. He is sleepy reports marijuana denies any other drugs or alcohol. Does have a history of bipolar disorder hepatitis C, ADHD depression anxiety. He is afebrile upon arrival, nontachycardic. O2 sat 98%. There is a couple of plantar warts noted and blisters to the bottom of his left foot with surrounding redness. Will apply bacitracin ointment, will consider cephalexin and dressing care. No reports of injury to warrant imaging at this time. Will swab for flu and COVID, obtain a chest x-ray, Informed by ED secretary board of commissioners that patient is refusing to return to the ER unless his back is X-rayed. L-spine Xrays ordered. Patient has a hx of Lumbago, last images done in April of 2024 which showed Degenerative changes. No evidence for pneumonia or cardiopulmonary abnormality on the chest x-ray, lumbar spine shows degenerative changes of the L-spine and right hip. Will treat for possible early cellulitis of his left foot. Do suspect a viral URI. Patient discharged with 6 tablets of ibuprofen 600 mg, was given cephalexin, given instructions for PCP follow-up. This text was generated using [employer] system, please disregard any oddities of phrase or misspellings. 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 -hb Psychosis (Acute) 06/08/2022. [facility] ED Paranoid (Acute) IV drug abuse (Chronic) Herniated disc (Acute) Low back pain (Acute) Medication side effects (Acute) Screening for hyperlipidemia (Acute) Elevated liver enzymes (Acute) Medical History Bipolar disorder Hepatitis C s/p treatment with interferon Paranoid ideation ADHD Depression Anxiety Surgical History Presence of surgical screw in left hand History of surgery on arm S/P right rotator cuff repair Family History Mother Heart disease Father Diabetes Brother Diabetes Hypertension Cancer pancreatic, liver and lung Brother Diabetes Brother Diabetes Sister Cancer pancreatic cancer Social History (Updated 05/27/24 @ 08:41 by Brant Holder MD) Smoking/Tobacco Use Status: Current-Occasional Tobacco Type: cigarettes Quit status: considering quitting Second Hand Exposure: Yes Smoking risk assessment performed?: Yes Alcohol Intake: never Drug use: Rarely Substance use type: marijuana and IV drugs Details: states he doesn't use any drugs but marijuana 07/21/24 Adopted: No Household members: other Details: girlfriend Housing: other Communication Needs: Hard of Hearing Education Level: master's degree Do you need help understanding health information?: Often 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 Pets and animals: No Sexually active: Yes Do you think of yourself as: straight/heterosexual Current gender identity: male What is your relationship status?: living with partner How often do you talk on the phone with friends or family?: once per week How often do you get together with friends or relatives?: twice per week Panel score (0-1 are the most socially isolated patients): 2 What type of physical activity do you participate in: regular exercise Duration: 45-60 minutes/day Frequency: 5-6 times per week Mihaela/Sikhism: Presybeterian Special mihaela needs: No Seatbelt use: always Helmet use: Yes Drive intox or ride w/intox bus driver 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
--- NOTE | 2024-10-03 13:30 | DI.RAD_ITS ---
Exam(s) XR LUMBAR SPINE COMPLETE EXAM: XR LUMBAR SPINE COMPLETE CLINICAL HISTORY: Back pain. TECHNIQUE: 2D digital imaging was performed of the lumbar spine. Five images were obtained. AP, lateral, right oblique, left oblique and L5-S1 spot views were obtained. COMPARISON: CR XR HIP PELVIS ADULT BL from 04/09/2024 FINDINGS: BONES: No fracture or destructive lesion. Endplate osteophytes are present throughout the lumbar spine. There are degenerative changes of the facets particularly at L5-S1. There is some deformity of the right femoral head raising the question of avascular necrosis. There are marked degenerative changes seen of the right hip. DISKS: There is disc space narrowing at L5-S1. ALIGNMENT: Lumbar spinal alignment is within normal limits. No spondylolysis or spondylolisthesis. SOFT TISSUE: Normal. IMPRESSION: Moderate degenerative changes seen in the lumbar spine. DATA REPOSITORY: RADIATION DOSE DELIVERED:
[2024-10-03] MEDS: Acetaminophen 500 MG TAB 1000 MG PO (13:46)
[2024-10-03] MEDS: Lidocaine 5% Patch 1 PATCH TP (13:47)
[2024-10-03] MEDS: Bacitracin 1 PACKET TP (13:48)
[2024-10-03] MEDS: Cephalexin 500 MG CAP, 2 CAPS/BTL PO (14:39)
[2024-10-03] MEDS: Cephalexin 500 MG CAP PO (14:39)
[2024-10-03] MEDS: Ibuprofen 600 MG TAB, 6 TABS/BTL PO (14:44)
[2024-10-03 14:48] VITALS: BP 140/90; PULSE 68; RESP 18; TEMP 36.4; O2SAT 98
== END 2024-10-03 14:50 | disposition home or self-care (01) ==
PROVIDERS: Emergency Provider Registered Nurse Emergency; PCP Physical Therapist
DX: M47.816 Spondylosis without myelopathy or radiculopathy, lumbar region (principal); L03.116 Cellulitis of left lower limb; B07.0 Plantar wart; J06.9 Acute upper respiratory infection, unspecified
CPT/HCPCS: 99284 ×2; 71046; 72110

== ENCOUNTER 2024-11-05 12:04 | Day surgery (SDC) | payer MEDICAID, SELFPAY ==
--- NOTE | 2024-11-04 19:36 | PDOC.DSDIS_ITS ---
Date of service: 11/05/24 Discharge Plan Disposition Patient Disposition: Home Condition: Good Discharge Details Reason For Visit: umbilical hernia repair Attending Provider: Margarito Alaniz Primary Care Provider: Kaur Gallagher Home Meds and New Rx's Prescriptions: New oxycodone 5 mg tablet 5 mg PO Q8H PRNQty: 9 0RF Rx Instructions: Take 1 tablet by mouth up to every 8 hours if needed for severe pain. Continued acetaminophen 500 mg tablet 1,000 mg PO Q6H PRN gabapentin 300 mg capsule 800 mg PO TID Patient Comments: needs rx ziprasidone HCl 40 mg capsule 20 mg PO QPM Patient Comments: needs rx Rx Instructions: give with food (meal/snack) bupropion HCl 300 mg tablet extended release 24 hr 300 mg PO DAILY Qty: 10 1RF Patient Comments: needs rx cyclobenzaprine 5 mg tablet 5 mg PO TID PRNQty: 15 0RF Patient Comments: pt ran out lidocaine 5 % adhesive patch,medicated 1 patch topical DAILY Qty: 15 0RF Rx Instructions: leave on most painful area for up to 12 hrs Sublocade 100 mg/0.5 mL solution, extended rel syringe 100 mg subcut QMONTH ibuprofen 800 mg tablet Patient Comments: TAKE ONE TABLET BY MOUTH THREE TIMES A DAY Discharge Instructions Instructions: Abdominal Hernia Repair, Laparoscopic Surgery Additional Instructions: [place], it was good seeing you today, and I hope you make a quick and uneventful recovery from the operation. Things went very smoothly. We are able to reduce the hernia, and patch the hole just as we discussed in the office. Expect to get some bruising over the incision sites, and certainly some pain. I tried to use as much long-acting local anesthetic as I could to help reduce pain after surgery. You should be using [id number] Tylenol and ibuprofen every 6 hours for the next 2 days, then transitioning to using them as needed. I also provided a prescription for a few days of oxycodone. This is only to manage the acute pain, and the prescription will not be reviewed afterwards. Ice packs will also help with postoperative pain and swelling. You have some bandages over the incisions, as well as 1 over a small incision at your bellybutton. Underneath of the bellybutton incision, there is also a piece of gauze covered in some Vaseline like material. This is to keep the skin of the bellybutton pushed downward over the first few days to help make more of an innie shaped bellybutton. All of the Band-Aids can come off tomorrow. All of the incision should be washed with warm soapy water. Use a cottonball and a Band-Aid over the bellybutton incision to push the skin down again after it has been cleaned. The other incision sites do not need any bandaging. You should wash all of the incisions twice every day. If you need anything at all or have any questions, please do not hesitate to contact the office. Otherwise we look forward to seeing you at your follow-up visit. 1. Resume all of your regular medications. 2. Use ice packs over the incisions and bellybutton to help with postoperative pain and swelling 3. Alternate [id number] Tylenol and ibuprofen every 6 hours for the first 2 days, then use them as needed. 4. Leave bandages in place for 24 hours, then remove. 5. Shower with warm soapy water. Pat dry. Use bandaids if needed to protect your clothing. 6. No soaking or tub baths until I see you in the office. 7. No heavy lifting until I see you in the office. 8. Call the office (or go directly to the emergency room after hours) if you notice any of the following: Develop chills (warm to touch), or if you have a thermometer and your temperature is above 101 Difficulty breathing or difficultly swallowing Persistent vomiting Any bleeding ? exceeding one tablespoon 9. Call your physician if the site where your intravenous was started becomes red, swollen, painful, and warm to touch. Referrals: Margarito Alaniz MD [ [facility] STAFF PHYSICIAN, Surgery] - 11/21/24 1:30 pm Activity:: No heavy lifting Remove Dressings/Wound Care:: 24 hours Shower/Bathe:: 24 hours Diet:: As Tolerated Discharge Orders Discharge Orders: Discharge Order (Routine); Ordered 11/04/24 Ordered By: Margarito Alaniz DS: Diagnosis Discharge Diagnosis (1) Hernia, umbilical: Status: Inactive Asessment and Plan: Outpatient postoperative follow-up
--- NOTE | 2024-11-04 19:39 | HPE_ITS ---
Assessment and Plan Assessment and plan (1) Hernia, umbilical: Status: Inactive Assessment and plan: We reviewed the plan for laparoscopic umbilical hernia repair today, I reviewed all the risks and benefits which show, I offered a chance to ask any new questions. He has no. We can proceed with the surgery as planned. History of Present Illness History of Present Illness Chief Complaint: Umbilical hernia Narrative: [place] was referred for an umbilical hernia. He tells me has been present for several years, but has been increasing in size and discomfort over the past few months. His other slightly bigger concern regards pain in the left upper side of his abdomen. This is really the thing that he complains most about. He says its brought on by leaning forward as if bending over to tie his shoes. It is sharp, stabbing, and feels like a muscle knotting up. It last several minutes. He gets some relief after stretching his abdominal wall for about 10 minutes. He tells me he suffers from chronic back pain, and in his words he is supposed to have some back surgery. He has been referred to physical therapy, but he has not yet done that because of the pain. At the time of his last office encounter, he had symptoms of viral upper respiratory tract infection. These have resolved. He has also been able to secure [facility] with access to a shower to help with postoperative hygiene. He also complains of worsening chronic sciatica that he tells me is already being managed. 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 -hb Elevated liver enzymes (Acute) Screening for hyperlipidemia (Acute) Medication side effects (Acute) Low back pain (Acute) Herniated disc (Acute) IV drug abuse (Chronic) Paranoid (Acute) Psychosis (Acute) 06/08/2022. [facility] Medical History Anesthesia Pt. states makes sure I am strapped down when I wake up or i will rip everything out Schizoaffective disorder Bipolar disorder Hepatitis C s/p treatment with interferon Paranoid ideation ADHD Depression Anxiety Surgical History Presence of surgical screw in left hand History of surgery on arm S/P right rotator cuff repair Family History Mother Heart disease Father Diabetes Brother Diabetes Hypertension Cancer pancreatic, liver and lung Brother Diabetes Brother Diabetes Sister Cancer pancreatic cancer Social History (Updated 05/27/24 @ 08:41 by Brant Holder MD) Smoking/Tobacco Use Status: Current-Occasional Tobacco Type: cigarettes Quit status: considering quitting Second Hand Exposure: Yes Smoking risk assessment performed?: Yes Alcohol Intake: never Drug use: Rarely Substance use type: marijuana Adopted: No Household members: other Details: girlfriend Housing: other Communication Needs: Hard of Hearing Education Level: master's degree Do you need help understanding health information?: Often 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 Pets and animals: No Sexually active: Yes Do you think of yourself as: straight/heterosexual Current gender identity: male What is your relationship status?: living with partner How often do you talk on the phone with friends or family?: once per week How often do you get together with friends or relatives?: twice per week Panel score (0-1 are the most socially isolated patients): 2 What type of physical activity do you participate in: regular exercise Duration: 45-60 minutes/day Frequency: 5-6 times per week Mihaela/Anabaptism: Scientology Special mihaela needs: No Seatbelt use: always Helmet use: Yes Drive intox or ride w/intox patient transportation driver: No Do you feel safe at home: Yes Do you feel safe in your relationship?: Yes Meds Allergies and Home Medications Allergies Allergy/AdvReac Type Severity Reaction Status Date / Time onion Allergy Intermediate Hives Verified 11/05/24 12:23 Sulfa (Sulfonamide Allergy Intermediate Hives Verified 11/05/24 12:23 Antibiotics) naproxen Allergy Mild Unknown Verified 11/05/24 12:23 Home Medications ?Medication ?Instructions ?Recorded ?Confirmed ?Type bupropion HCl 300 mg 24 hr tablet, 300 mg PO DAILY #10 tabs 02/08/24 11/05/24 Rx extended release acetaminophen 500 mg tablet 1,000 mg PO Q6H PRN 11/05/24 History gabapentin 300 mg capsule 800 mg PO TID 02/20/2411/05 History ziprasidone HCl 40 mg capsule 20 mg PO QPM 02/20/24 History cyclobenzaprine 5 mg tablet 5 mg PO TID PRN #15 tabs 0 07/22/24 11/05/24 Rx lidocaine 5 % topical patch 1 patch topical DAILY #15 ea 10/03/24 11/05/24 Rx buprenorphine 100 mg/0.5 mL 100 mg subcut QMONTH 11/0411/05/24 History solution,exten.rel.subcutaneous syringe (Sublocade) ibuprofen 800 mg tablet mg 11/05/24 History Exam Const General: cooperative, healthy appearing and not in acute distress Neck Neck: normal visual inspection, no lymphadenopathy and supple Resp Effort & Inspection: normal respiratory effort Auscultation: clear to auscultation bilaterally Cardio Jugular venous pressure: no JVD Rate: regular rate Rhythm: regular rhythm Heart Sounds: S1 normal and S2 normal GI Inspection: normal to inspection Palpation: soft, no guarding, hernia (Umbilical) and nontender Percussion: normal to percussion Auscultation: normal bowel sounds Neuro General: patient alert, patient awake and patient oriented x3 Psych Appearance: grossly normal
[2024-11-05] VITALS (46 sets, daily range): BP systolic 133–185; BP diastolic 90–117; PULSE 53–76; RESP 12–21; TEMP 36.2–36.8; O2SAT 96–100; BMI 31.9
--- NOTE | 2024-11-05 07:15 | W.ANESPRE ---
General Info Date of Service Date Performed: 11/05/24 Height: 5 ft 8 in Weight: 95.254 kg Body Mass Index (BMI): 31.9 Surgical Procedure: Operation Date: 11/05/24 12:40 Proposed Procedure Side Surgeon p Hernia Umbilical Laparoscopic Margarito Alaniz MD Meds Allergies and Home Medications Allergies Allergy/AdvReac Type Severity Reaction Status Date / Time onion Allergy Intermediate Hives Verified 11/05/24 12:23 Sulfa (Sulfonamide Allergy Intermediate Hives Verified 11/05/24 12:23 Antibiotics) naproxen Allergy Mild Unknown Verified 11/05/24 12:23 Home Medication ?Medication ?Instructions ?Recorded bupropion HCl 300 mg 24 hr tablet, 300 mg PO DAILY #10 tabs 02/08/24 extended release acetaminophen 500 mg tablet 1,000 mg PO Q6H PRN 02/20/24 gabapentin 300 mg capsule 800 mg PO TID 02/20/24 ziprasidone HCl 40 mg capsule 20 mg PO QPM 02/20/24 cyclobenzaprine 5 mg tablet 5 mg PO TID PRN #15 tabs 07/22/24 lidocaine 5 % topical patch 1 patch topical DAILY #15 ea 10/03/24 buprenorphine 100 mg/0.5 mL 100 mg subcut QMONTH 11/04/24 solution,exten.rel.subcutaneous syringe (Sublocade) ibuprofen 800 mg tablet mg 11/05/24 oxycodone 5 mg tablet 5 mg PO Q8H PRN #9 tabs 11/05/24 Current Visit Medications: Current Medications Generic Name Dose Route Start Last Admin Trade Name Freq PRN Reason Stop Dose Admin Acetaminophen 1,000 mg 11/05/24 06:00 Acetaminophen 500 Mg Tab PO 12/04/24 23:59 PREOP SUSHMA Celecoxib 200 mg 11/05/24 06:00 Celecoxib 200 Mg Cap PO 12/04/24 23:59 PREOP SUSHMA Gabapentin 600 mg 11/05/24 06:00 Gabapentin 300 Mg Cap PO 12/04/24 23:59 PREOP SUSHMA Hydromorphone HCl 0.2 mg 11/04/24 19:41 Hydromorphone 2 Mg/Ml Syr IVP 12/04/24 19:40 Q1H PRN PRN Ringer's Solution 1,000 mls @ 80 mls/hr 11/05/24 06:00 IV 12/04/24 23:59 INFUSION SUSMHA Cefazolin Sodium/Dextrose 2 gm in 50 mls @ 100 mls/hr 11/05/24 06:00 Ancef Duplex IVPB 12/04/24 23:59 PREOP SUSHMA IV Miscellaneous Supplies 1 each 11/05/24 06:00 Iv Access IV 12/04/24 23:59 DIRECTED SUSHMA Sodium Chloride 0 ml 11/05/24 06:00 Normal Saline Flush 10 Ml Syr IV 12/04/24 23:59 PRN PRN Sodium Chloride 0 ml 11/05/24 06:00 Normal Saline 10 Ml Vial IJ 12/04/24 23:59 DIRECTED PRN Sterile Water 0 ml 11/05/24 06:00 Water,Injection,Sterile 10 Ml Vial IJ 12/04/24 23:59 DIRECTED PRN Tramadol HCl 50 mg 11/04/24 19:41 Tramadol 50 Mg Tab PO 12/04/24 19:40 Q6H PRN PRN Pain PFSH Active Problems Active Problems: Problem Status Onset Code Calf pain Acute M79.669 Cough Acute R05.9 Cocaine abuse Acute F14.10 Major depressive disorder, recurrent episode, severe Acute F33.2 Axillary abscess Acute L02.419 Right hip pain Acute M25.551 Right knee pain Acute M25.561 Methamphetamine use Acute F15.10 Elevated liver enzymes Acute R74.8 Screening for hyperlipidemia Acute Z13.220 Medication side effects Acute T88.7XXA Concussion Resolved S06.0X9A Low back pain Acute M54.5 Herniated disc Acute IV drug abuse Chronic F19.10 Paranoid Acute F22 Psychosis Acute F29 Medical History Medical History Anesthesia Pt. states makes sure I am strapped down when I wake up or i will rip everything out Schizoaffective disorder Bipolar disorder Hepatitis C s/p treatment with interferon Paranoid ideation ADHD Depression Anxiety Surgical History Surgical History Presence of surgical screw in left hand History of surgery on arm S/P right rotator cuff repair Tobacco Smoking/Tobacco Use Status: Current-Occasional Tobacco Type: cigarettes Smoking cigarettes per day: 1 Passive smoking exposure: Yes Second hand exposure: Yes Alcohol Alcohol Intake: never Substance Use Substance use: Occasionally Substance use type: marijuana and IV drugs Vital Signs and Lab Results Vital Signs Most Recent Vital Signs in EMR: Temp Pulse Resp BP Pulse Ox 36.8 C 75 16 133/90 99 11/05/24 12:10 11/05/24 12:10 11/05/24 12:10 11/05/24 12:10 11/05/24 12:10 Anesthesia Assessment and Plan Anesthesia History Personal History: No History of Anesthesia Complications and Other Family History: No Family History of Anesthesia Complications Exercise Tolerance Exercise Tolerance: Unknown Pertinent Negatives Pertinent Negatives: No Symptoms of GERD, No Major Cardiovascular Symptoms or Complaints, No Major Pulmonary Symptoms or Complaints and No History of CVA/TIA Cardiac & Pulmonary Exam Cardiac Exam: Normal S1/S2 Heart Sounds Pulmonary Exam: Clear Bilateral Breath Sounds Implantable Cardiac Device Does patient have a Pacemaker or an ICD?: No Airway Exam Known Difficult Airway: No Mallampati Class: 3 Mouth Opening: Normal (> 3cm) Thyromental Distance: Greater than 3 cm Neck Range of Motion: Limited ROM Neck Circumference: Normal Teeth Condition: Generalized Poor Dentition and Loose or Chipped Tooth Numbering:  1. Loose. understands that It may be knocked out during the course of anesthesia, he is okay with that. ASA Classification ASA Score: ASA 2 Emergency Case?: No NPO Status NPO Status: NPO Clears >2 hours, Solids >8 hours Anesthesia Plan Resuscitation Status: Full Code Anesthesia Technique: General Anesthesia Airway Planned: Endotracheal Tube Monitors Used: Standard Monitors Preoperative Comments:: 54 yo for lap umbilical hernia repair. Sig PMHx: hep c, depression/bipolar/schizoaffective/ADHD Occ tobacco/cannabis. Hx of cocaine/meth use/opioid abuse (buprenorphine - last dose 3 days ago). Previous Anes: None here, states that he has a history of violent wake ups. States that he woke up during his bicep repair and ripped his ETT out in the middle of the case. Discussed plan of general anesthesia. He asked that we strap him down for his wake up, since he can be violent. He also requested that he is immediately awake after the procedure. We went over the drugs that we plan on using and that we can't guarantee that he will have an immediate clear wake up. Also reviewed the use of dexmed in the prevention of violent wake ups, but with the down side that it may cause him to be sleepy.
[2024-11-05] MEDS: Gabapentin 300 MG CAP 600 MG PO (12:41)
[2024-11-05] MEDS: Celecoxib 200 MG CAP PO (12:41)
[2024-11-05] MEDS: Acetaminophen 500 MG TAB 1000 MG PO (12:42)
[2024-11-05] MEDS: Lactated Ringers 1,000 ML 80 ML IV ×2 (13:05→17:24)
--- NOTE | 2024-11-05 14:19 | W.PM.OP ---
Operative Note Operative Note PRE-OP DIAGNOSIS: Umbilical hernia POST-OP DIAGNOSIS: same PROCEDURE: Laparoscopic umbilical hernia repair with mesh SURGEON: Margarito Alaniz VAC PRESS OPERATOR: Susie Shen ANESTHESIA TYPE: General LMA/ETT and Other (Laparoscopic tap blocks) Refer to Anesthesia Record ESTIMATED BLOOD LOSS: 25 PATHOLOGY: none sent COMPLICATIONS: None Patient was transported to: PACU Patient's condition: stable Implants: 12.[address] hernia mesh Indications: Seun is a 54-year-old male with a symptomatic umbilical hernia Findings: 3 cm x 2 cm reducible umbilical hernia Procedure Description: I met with Seun in the preoperative area, and we reviewed the plan for surgery. He was agitated, and tearful because of what he reported his chronic sciatic pain. Multiple suggestions were made to help with his discomfort, including the offer for different medications, but he was increasingly annoyed about waiting for surgery, and dismissive of our suggestions. I took great care, made great effort to ensure that all of his questions were answered appropriately. We then moved back to the operating room. He was assisted onto the OR table. General endotracheal anesthesia was initiated. A straight catheterization was performed of the bladder using aseptic technique to ensure adequate decompression for safe mesh fixation. I prepped and draped the anterior abdominal wall in the usual fashion. I anesthetized the skin in the left upper quadrant adjacent to Eckert's point, and using a 5 mm optical trocar establish pneumoperitoneum. Next, under the vision of the laparoscope I performed bilateral transversus blocks using local anesthetic mixed with Exparel. I then placed a 12 mm port in the far left abdomen, as well as a 5 mm port inferior to that. By the time pneumoperitoneum was completely established, there were no visceral contents present within the hernia sac. The defect itself measured approximately 2 cm x 3 cm in its largest dimensions. I incised the peritoneum adjacent to the defect, and carefully dissected free the hernia sac and its contents. It appeared to contain a fair amount of preperitoneal fat. Once all of this was reduced clear, with normal and healthy appearing fascial edge, I used a Carmine Ng suture passer to close the umbilical defect with interrupted PDS sutures. Next, I advanced a 12.[address] cm [address] ST hernia mesh fashioned to an echo 2 positioning system. This would provide excellent overlap. The mesh was brought up to the anterior abdominal wall. The positioning system was deployed, and it appeared well-seated. Next, using a laparoscopic tacking device, I affixed the mesh in place. There was no bleeding from any of the tacks sites. The positioning system was removed, and the mesh had excellent coverage without any evidence of wrinkles or tension. The 12 mm port was then removed, and the Carmine Ng wound closure device was used to close this defect. The left lower quadrant port was removed. This was hemostatic. The pneumoperitoneum was then released, and the 5 mm port in the left upper quadrant was removed. Skin and subcutaneous tissues were closed with interrupted absorbable sutures, and bandages were applied prior to extubation. Annmarie was transferred to the recovery unit for ongoing care. Date of Procedure: 11/05/24
[2024-11-05] MEDS: ceFAZolin 2 GM/50 ML BAG IVPB (14:47)
[2024-11-05] MEDS: Bupivacaine LIPOSOME/PF 133 MG/10 ML VIAL IJ (15:16)
[2024-11-05] MEDS: Bupivacaine 0.5% Pres-Free 30 ML VIAL (15:16)
[2024-11-05] MEDS: fentaNYL 100 MCG/2 ML VIAL IVP ×6 (16:16→17:20)
[2024-11-05] MEDS: HYDROmorphone 2 MG/ML SYR IVP ×5 (16:17→16:55)
[2024-11-05] MEDS: traMADol 50 MG TAB PO (16:56)
--- NOTE | 2024-11-05 18:05 | W.ANESPOSTOP ---
Postoperative Evaluation Date, Time and Location Date Performed: 11/05/24 Time Performed: 17:45 Patient Location: Day Surgery Unit Vital Signs Most Recent Imported Vital Signs: Most Recent Vital Signs Temp Pulse Resp BP Pulse Ox 36.5 C 74 14 152/107 H 97 11/05/24 17:20 11/05/24 17:16 11/05/24 16:40 11/05/24 17:16 11/05/24 17:12 Pain Score Most Recent Pain Score: Most Recent Pain Score Pain Level 10 11/05/24 17:20 Assessment Mental Status: Awake (Alert & Oriented to Patient Baseline) Airway and Respiratory Function: Patent airway with normal (patient baseline) respiratory exam Cardiovascular Function: Hemodynamically Stable Hydration Status: Adequately Hydrated Nausea & Vomiting: No Nausea or Vomiting Pain: Pain is Moderate or Severe Postoperative Pain Management: Patient having pain, declines treatment, wishes to be discharged Peripheral Nerve Block: Patient did not receive a nerve block Postoperative Comments:: pt. had concerns that he always woke up violent. He received 40 mcg precedex prior to anesthesia with good effect, although still very awake. Anesthesia uneventful. he woke up well in PACU and was not violent. He complained of 10/10 abdominal pain. Understanding he is suboxone, we began administering analgesia. While his pain score never decreased when asked his VS suggested more comfort as well as his short periods of sleep in between pain doses. He was verbally unkind, but would eventually calm with reassurance of the plan. When he asked for the pain to be gone, I told him the goal was to make the pain tolerable, but it would be unlikely to make it go away. After 400mcg fentanyl and 4mg dilaudid, he still was a 10/10, although did look more comfortable than when he first woke up. He had already received tylenol, toradol. I did not want to give him additional precedex or ketamine given his schizophrenia, as he stated multiple times.Discussed admission vs going home and he wished to go home now. His friend/support Faith was updated with his permission and spoke with him in PACU where he became more emotional but made it clear he was ready to leave. Given he is hemodynamically stable and airway is clearly patent with good room air SpO2, we went from PACU to DSU where he refused further vital signs, stood with assist and mostly dressed himself and then was brought to car for discharge. Faith and RN previously went over discharge instructions and she has those. While [place] was not physically violent, he was very disrespectful verbally, then would apologize, then disrespectful again as well as blowing vape smoke into my face after asking him not to. Dr. Alaniz was updated on plan. [place] asked to take suboxone as prescribed and to call surgery office if home pain medicine was not making him comfortable.
== END 2024-11-05 17:50 | disposition home or self-care (01) ==
PROVIDERS: PCP Nurse Practitioner Family; Visit Provider Surgery
PROC: (CPT 49650; principal; 2024-11-05 12:30)
DX: K42.9 Umbilical hernia without obstruction or gangrene (principal)
CPT/HCPCS: 49593; C1781; J0665; J0666; J0690; J1100; J1171; J2003; J2250; J2371; J2405; J2704; J3010

== ENCOUNTER 2024-11-11 13:15 | Emergency (ER) | payer MEDICAID, SELFPAY ==
[2024-11-11 13:39] VITALS: BP 123/85; PULSE 69; RESP 20; TEMP 36.6; O2SAT 94
--- NOTE | 2024-11-11 14:15 | DI.RAD_ITS ---
Exam(s) XR CHEST 2V PA LATERAL EXAM: XR CHEST 2V PA LATERAL CLINICAL HISTORY: Cough shortness of breath. TECHNIQUE: 2D digital imaging was performed. COMPARISON: CR,XR XR CHEST 2V PA LATERAL from 06/04/2024 CR XR CHEST 2V PA LATERAL from 10/03/2024 FINDINGS: 2 views: Heart size is normal. The mediastinum is not widened. Small nodular density over the mid lateral right lung base now evident, not previously present. This is possibly breast nipple in this male patient. Similar findings not seen on the opposite-left side. Slightly increased markings in left suprahilar region are unchanged and most probably combination of vessels and 1st costochondral junction. No pleural effusions. IMPRESSION: As above. Recommend repeating the PA view with bilateral metallic nipple markers in place. DATA REPOSITORY: RADIATION DOSE DELIVERED:
--- NOTE | 2024-11-11 14:17 | W.ED.GENAD ---
Discharge Plan Disposition Patient Disposition: Eloped Discharge Details Clinical Impression: Community acquired pneumonia Primary Care Provider: Kaur Gallagher ED Provider: Jose Enrique Bradley [place] Meds and New Rx's Prescriptions: New amoxicillin 500 mg capsule 1,000 mg PO TID 7 Days Qty: 42 0RF Continued acetaminophen 500 mg tablet 1,000 mg PO Q6H PRN gabapentin 300 mg capsule 800 mg PO TID Patient Comments: needs rx ziprasidone HCl 40 mg capsule 20 mg PO QPM Patient Comments: needs rx Rx Instructions: give with food (meal/snack) bupropion HCl 300 mg tablet extended release 24 hr 300 mg PO DAILY Qty: 10 1RF Patient Comments: needs rx cyclobenzaprine 5 mg tablet 5 mg PO TID PRNQty: 15 0RF Patient Comments: pt ran out lidocaine 5 % adhesive patch,medicated 1 patch topical DAILY Qty: 15 0RF Rx Instructions: leave on most painful area for up to 12 hrs Sublocade 100 mg/0.5 mL solution, extended rel syringe 100 mg subcut QMONTH ibuprofen 800 mg tablet Patient Comments: TAKE ONE TABLET BY MOUTH THREE TIMES A DAY oxycodone 5 mg tablet 5 mg PO Q8H PRNQty: 9 0RF Rx Instructions: Take 1 tablet by mouth up to every 8 hours if needed for severe pain. Discharge Data Discharge Date/Time-TO BE ENTERED AT DEPARTURE: 11/11/24 16:30 HPI General Date/Time Provider Initiated Documentation: 11/11/24 13:43. HPI Narrative: MDM This is an overall well-appearing normothermic and not tachycardic 54-year-old male 4 days postop status post laparoscopic umbilical hernia repair with course left-sided lung sounds concerning for pneumonia for which patient will undergo two-view chest x-ray and basic labs. I considered sepsis however the patient is not hypotensive nor tachycardic so I did not feel he required broad-spectrum antibiotics assessment lactate nor blood cultures. I considered PE however given productive cough and abnormal breath sounds my suspicion was lower for PE so I did not send a D-dimer. Furthermore patient is PERC negative and not having calf pain so we will defer D-dimer at this point in time. Patient is having no dysuria nor frequency to suggest UTI. Surgical incisions appear to be healing well and he is neither obstipated nor constipated so I am not concerned for postoperative intraabdominal infection. My suspicion for small bowel obstruction was low given that he has not been vomiting. He is not a routine smoker and carries no history of reactive airway disease so in the absence of any significant wheezes I did not feel that he required nebulized albuterol. No chest pain to suggest ACS so I did not obtain ECG. No pain out of proportion to suggest necrotizing soft tissue infection. I considered acute heart failure however patient has no history of heart failure and has no significant lower extremity edema so I did not feel he required diuresis nor assessment of his proBNP. I was not concerned for any postsurgical complications I did not feel that the patient required a surgical consultation in the emergency department. Will reassess following labs and two-view chest x-ray. 4:28 PM Patient's x-ray was read by radiology showing a small nodular density over the mid lateral right lung base which was new. They recommended repeat x-ray with nipple markers. I ordered repeat follow-up imaging. Patient unfortunately left the emergency department prior to his evaluation being completed. He did not have an IV in place at the time. I tried to call the patient as I was concerned about pneumonia. Unfortunately he did not have a number listed in our EMR. Nonetheless I called in a prescription for amoxicillin 1000 mg 3 times daily for 7 days to his pharmacy. HPI This is a patient with a history of laparoscopic umbilical hernia repair presenting with symptoms of a cold. The patient underwent laparoscopic umbilical hernia repair 4 days ago, on 11/07/2024. The day after surgery, the patient began experiencing symptoms of a cold, including coughing up green phlegm, a sensation of fever, and fatigue. The patient suspects an infection due to a bad taste when exhaling. The patient smokes cigarettes occasionally. The patient reports no history of diabetes. The patient has had one bowel movement since the surgery, which occurred this morning. The patient reports abdominal pain located in the lower stomach area. The patient has been taking Tylenol for pain management, with the last dose taken this morning. The patient's appetite is poor, and the patient has not eaten today. The patient also reports nausea and excessive sweating. PAST SURGICAL HISTORY: Laparoscopic umbilical hernia repair on 11/07/2024 Exam General: Well-appearing in no acute distress speaking in complete sentences. Head: Normocephalic, atraumatic. Eye: Extraocular eye movements intact. No conjunctival injection. No scleral icterus. Ear, nose, mouth, throat: Grossly normal inspection. Normal voice, handling secretions normally. Neck: Trachea midline. Cardiovascular: Well-perfused distal extremities. Regular rate and rhythm Respiratory: Nonlabored respiration. Coarse left-sided greater than right-sided breath sounds. No respiratory distress. No stridor. Gastrointestinal: Nondistended abdomen. Soft. Minimal tenderness. No rebound. No guarding. Trochanteric sites appear to be healing well. Musculoskeletal: No edema. Moving all 4 extremities spontaneously. Skin: Normal for age and race, grossly normal temperature and turgor. No acute rash. Neurologic: Alert and appropriate, no apparent acute deficits. Psychiatric: Mood and manner are appropriate. Grooming and personal hygiene are appropriate. Related Data Home Medications ?Medication ?Instructions ?Recorded ?Confirmed bupropion HCl 300 mg 24 hr tablet, 300 mg PO DAILY #10 tabs 02/08/24 11/05/24 extended release acetaminophen 500 mg tablet 1,000 mg PO Q6H PRN 02/20/24 11/05/24 gabapentin 300 mg capsule 800 mg PO TID 02/20/24 11/05/24 ziprasidone HCl 40 mg capsule 20 mg PO QPM 02/20/24 11/05/24 cyclobenzaprine 5 mg tablet 5 mg PO TID PRN #15 tabs 07/22/24 11/05/24 lidocaine 5 % topical patch 1 patch topical DAILY #15 ea 10/03/24 11/05/24 buprenorphine 100 mg/0.5 mL 100 mg subcut QMONTH 11/04/24 11/05/24 solution,exten.rel.subcutaneous syringe (Sublocade) ibuprofen 800 mg tablet mg 11/05/24 oxycodone 5 mg tablet 5 mg PO Q8H PRN #9 tabs 11/05/24 amoxicillin 500 mg capsule 1,000 mg (2 x 500 mg) PO TID 7 11/11/24 days #42 caps Previous Rx's ?Medication ?Instructions ?Recorded bupropion HCl 300 mg 24 hr tablet, 300 mg PO DAILY #10 tabs 02/08/24 extended release cyclobenzaprine 5 mg tablet 5 mg PO TID PRN #15 tabs 07/22/24 lidocaine 5 % topical patch 1 patch topical DAILY #15 ea 10/03/24 oxycodone 5 mg tablet 5 mg PO Q8H PRN #9 tabs 11/05/24 amoxicillin 500 mg capsule 1,000 mg (2 x 500 mg) PO TID 7 11/11/24 days #42 caps Allergies Allergy/AdvReac Type Severity Reaction Status Date / Time onion Allergy Intermediate Hives Verified 11/11/24 13:42 Sulfa (Sulfonamide Allergy Intermediate Hives Verified 11/11/24 13:42 Antibiotics) naproxen Allergy Mild Unknown Verified 11/11/24 13:42 General Stated Complaint: GenMedical CHUYITA: 4 Course Vital Signs Vital signs: Vital Signs Temperature 36.6 C 11/11/24 13:39 Pulse 69 11/11/24 13:39 Respiratory Rate 20 11/11/24 13:39 Blood Pressure 123/85 11/11/24 13:39 Pulse Oximetry 94 11/11/24 13:39 Temperature 36.6 C 11/11/24 13:39 Temperature Source Oral 11/11/24 13:39 Pulse 69 11/11/24 13:39 Respiratory Rate 20 11/11/24 13:39 Blood Pressure 123/85 11/11/24 13:39 Blood Pressure Position Sitting 11/11/24 13:39 Pulse Oximetry 94 11/11/24 13:39 Oxygen Delivery Method Room Air 11/11/24 13:39 Oxygen Flow Rate 0 11/11/24 13:39 Pain Level 0 11/11/24 13:39 PFSH All Active Problems (Updated 11/11/24 @ 16:25 by Jose Enrique Bradley MD) Community acquired pneumonia (Acute) Calf pain (Acute) Cough (Acute) Cocaine abuse (Acute) Major depressive disorder, recurrent episode, severe (Acute) 02/19/24 [facility] [place] note Axillary abscess (Acute) Right hip pain (Acute) Right knee pain (Acute) Methamphetamine use (Acute) 06/08/22 Per [facility]. -hb Elevated liver enzymes (Acute) Screening for hyperlipidemia (Acute) Medication side effects (Acute) Low back pain (Acute) Herniated disc (Acute) IV drug abuse (Chronic) Paranoid (Acute) Psychosis (Acute) 06/08/2022. [facility] Medical History (Updated 11/11/24 @ 16:25 by Jose Enrique Bradley MD) Anesthesia Pt. states makes sure I am strapped down when I wake up or i will rip everything out Schizoaffective disorder Bipolar disorder Hepatitis C s/p treatment with interferon Paranoid ideation ADHD Depression Anxiety Surgical History (Updated 11/06/24 @ 07:46 by Alannah Jefferson CMA) Hx of umbilical hernia repair (~11/05/24) Presence of surgical screw in left hand History of surgery on arm S/P right rotator cuff repair Family History Mother Heart disease Father Diabetes Brother Diabetes Hypertension Cancer pancreatic, liver and lung Brother Diabetes Brother Diabetes Sister Cancer pancreatic cancer Social History (Updated 05/27/24 @ 08:41 by Brant Holder MD) Smoking/Tobacco Use Status: Current-Occasional Tobacco Type: cigarettes Quit status: considering quitting Second Hand Exposure: Yes Smoking risk assessment performed?: Yes Alcohol Intake: current Alcohol Intake frequency: holidays/special occasions only Alcohol type: beer, wine and hard liquor Drug use: Rarely Substance use type: marijuana Adopted: No Household members: other Details: girlfriend Housing: other Communication Needs: Hard of Hearing Education Level: master's degree Do you need help understanding health information?: Often 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 Pets and animals: No Sexually active: Yes Do you think of yourself as: straight/heterosexual Current gender identity: male What is your relationship status?: living with partner How often do you talk on the phone with friends or family?: once per week How often do you get together with friends or relatives?: twice per week Panel score (0-1 are the most socially isolated patients): 2 What type of physical activity do you participate in: regular exercise Duration: 45-60 minutes/day Frequency: 5-6 times per week Mihaela/Nondenominational: Hoahaoism Special mihaela needs: No Seatbelt use: always Helmet use: Yes Drive intox or ride w/intox dolly driver: No Do you feel safe at home: Yes Do you feel safe in your relationship?: Yes
[2024-11-11 14:22] VITALS: TEMP 36.7
[2024-11-11 14:52] LABS: BE (Venous) 3 mmol/L (-2-3); HCO3 (Venous) 28 mmol/L (23-28); O2 Sat (Venous) 55 %; TCO2 (Venous) 25 mmol/L (24-29); pCO2 (Venous) 49 mmHg (41-51); pO2 (Venous) 29 mmHg
[2024-11-11 14:54] LABS: Abs Immature Grans 0.01 10^3/uL (0.0-0.06); HCT 43.4 % (40.0-50.0); HGB 15.0 g/dL (13.5-17.5); Immature Grans % 0.1 %; MCH 34.0 pg (27.0-33.0); MCHC 34.6 % (32.0-36.0); MCV 98 fL (80-95); MPV 8.9 fL (8.0-11.0); Platelet Count 203 10^3/uL (130-400); RBC 4.41 10^6/uL (4.36-5.78); RDW 11.8 % (11.8-14.1); RDW-SD 43.0 fL; WBC 8.89 10^3/uL (4.4-10.8)
[2024-11-11 15:09] LABS: Anion Gap 6.9 mmol/L (3-11); BUN 20 mg/dL (7-18); CO2 30.1 mmol/L (21.0-32.0); Calcium 9.3 mg/dL (8.5-10.1); Chloride 105 mmol/L (98-107); Estimated GFR 110.18 (mL/min/1.73m2); Glucose 89 mg/dL (74-106); Potassium 4.1 mmol/L (3.5-5.1); Sodium 142 mmol/L (136-145)
[2024-11-11 15:34] LABS: COVID-19 PCR Negative (Negative); RSV PCR Negative (Negative)
--- NOTE | 2024-11-11 21:41 | NUR.NOTE ---
Nursing Note: Accessed patients chart as the patient called regarding his visit earlier today. patient wanted to know about a prescription and blood test results. Communicated with patient that per the provider note, Amoxicillin 1000mg TID for 7 days was sent to pharmacy on file. Patient had no further questions.
== END 2024-11-11 16:30 | disposition left against medical advice (07) ==
PROVIDERS: Emergency Provider Emergency Medicine; PCP Nurse Practitioner Family
DX: J18.9 Pneumonia, unspecified organism (principal)
CPT/HCPCS: 99284; 80048; 82805; 87637; 71046; 85025

== ENCOUNTER 2024-12-15 02:58 | Emergency (ER) | payer MEDICAID, SELFPAY ==
[2024-12-15 02:51] VITALS: BP 127/90; PULSE 89; RESP 17; TEMP 35.5; O2SAT 98
--- NOTE | 2024-12-15 03:51 | W.ED.GENAD ---
Discharge Plan Discharge Details Chief Complaint: PsychEval Clinical Impression: Depression, Suicidal ideations Primary Care Provider: Kaur Gallagher ED Provider: Dimas Mao Home Meds and New Rx's Prescriptions: No Action acetaminophen 500 mg tablet 1,000 mg PO Q6H PRN ziprasidone HCl 40 mg capsule 20 mg PO QPM Patient Comments: needs rx Rx Instructions: give with food (meal/snack) bupropion HCl 300 mg tablet extended release 24 hr 300 mg PO DAILY Qty: 10 1RF Patient Comments: needs rx cyclobenzaprine 5 mg tablet 5 mg PO TID PRNQty: 15 0RF Patient Comments: pt ran out lidocaine 5 % adhesive patch,medicated 1 patch topical DAILY Qty: 15 0RF Rx Instructions: leave on most painful area for up to 12 hrs Sublocade 100 mg/0.5 mL solution, extended rel syringe 100 mg subcut QMONTH ibuprofen 800 mg tablet 800 mg PO Q8H PRN Patient Comments: TAKE ONE TABLET BY MOUTH THREE TIMES A DAY oxycodone 5 mg tablet 5 mg PO Q8H PRNQty: 9 0RF Rx Instructions: Take 1 tablet by mouth up to every 8 hours if needed for severe pain. ziprasidone HCl 20 mg capsule 40 mg PO QHS Patient Comments: TAKE 2 CAPSULES BY MOUTH DAILY AT BEDTIME acetaminophen 325 mg tablet 650 mg PO Q8H PRN PRN Patient Comments: TAKE 2 TABLETS BY MOUTH EVERY 8 HOURS gabapentin 800 mg tablet 800 mg PO TID Patient Comments: TAKE 1 TABLET BY MOUTH THREE TIMES DAILY FOR PAIN OR MOOD meloxicam 7.5 mg tablet 7.5 mg PO BID Patient Comments: TAKE 1 TABLET BY MOUTH TWICE DAILY FOR PAIN omeprazole 20 mg capsule,delayed release(DR/EC) 20 mg PO DAILY Patient Comments: TAKE 1 CAPSULE BY MOUTH DAILY HPI General Date/Time Provider Initiated Documentation: 12/15/24 03:18. HPI Narrative: This is a 53-year-old male with past medical history of psychosis, paranoia, hepatitis C, previous IV drug use, history of herniated disc, bipolar, who presents today for suicidal ideations. Patient states that he has stopped taking his medications for the last few weeks, including his medications for his chronic back pain. He states that everything is off, I just want to , I will jump off a bridge to , I cannot take everything anymore. He does admit to hearing voices. He denies any visual hallucinations. He denies any bowel or bladder incontinence. He does admit to falling off a porch a week or 2 ago and having some chest pain since then. No other complaints. No cough, fever. Related Data Home Medications Medication Instructions Recorded Confirmed bupropion HCl 300 mg 24 hr tablet, 300 mg PO DAILY #10 tabs 02/08/24 12/15/24 extended release acetaminophen 500 mg tablet 1,000 mg PO Q6H PRN 02/20/24 12/15/24 ziprasidone HCl 40 mg capsule 20 mg PO QPM 02/20/24 12/15/24 Held on 12/15/24. Instructions: Prescription Finished cyclobenzaprine 5 mg tablet 5 mg PO TID PRN #15 tabs 07/22/24 12/15/24 Held on 12/15/24. Instructions: Prescription Finished lidocaine 5 % topical patch 1 patch topical DAILY #15 ea 10/03/24 12/15/24 buprenorphine 100 mg/0.5 mL 100 mg subcut QMONTH 11/04/24 12/15/24 solution,exten.rel.subcutaneous syringe (Sublocade) ibuprofen 800 mg tablet 800 mg PO Q8H PRN 11/05/24 12/15/24 oxycodone 5 mg tablet 5 mg PO Q8H PRN #9 tabs 11/05/24 12/15/24 Held on 12/15/24. Instructions: Prescription Finished acetaminophen 325 mg tablet 650 mg PO Q8H PRN PRN 12/15/24 12/15/24 Held on 12/15/24. Instructions: Pt Stopped/Never Started gabapentin 800 mg tablet 800 mg PO TID 12/15/24 12/15/24 meloxicam 7.5 mg tablet 7.5 mg PO BID 12/15/24 12/15/24 omeprazole 20 mg capsule,delayed 20 mg PO DAILY 12/15/24 12/15/24 release ziprasidone HCl 20 mg capsule 40 mg PO QHS 12/15/24 12/15/24 Previous Rx's Medication Instructions Recorded bupropion HCl 300 mg 24 hr tablet, 300 mg PO DAILY #10 tabs 02/08/24 extended release cyclobenzaprine 5 mg tablet 5 mg PO TID PRN #15 tabs 07/22/24 Held on 12/15/24. Instructions: Prescription Finished lidocaine 5 % topical patch 1 patch topical DAILY #15 ea 10/03/24 oxycodone 5 mg tablet 5 mg PO Q8H PRN #9 tabs 11/05/24 Held on 12/15/24. Instructions: Prescription Finished Allergies Allergy/AdvReac Type Severity Reaction Status Date / Time onion Allergy Intermediate Hives Verified 12/15/24 02:57 Sulfa (Sulfonamide Allergy Intermediate Hives Verified 12/15/24 02:57 Antibiotics) naproxen Allergy Mild Unknown Verified 12/15/24 02:57 egg AdvReac Severe Other (See Verified 12/15/24 02:57 Comment) General Stated Complaint: RX Refill CHUYITA: 2 Exam Narrative Exam Narrative: . Mild tenderness over the right anterior 1.Const: Well-nourished, Well-developed, appearing stated age 2.Eyes: PERRL, no conjunctival injection, and symmetrical lids. 3.ENT: Atraumatic external nose and ears. Moist MM. Neck: Symmetric, trachea midline, No thyromegaly. 4.CVS: +S1/S2, Peripheral pulses 2+ and equal in all extremities. Brisk capillary refill in all extremities. 5.RESP: Unlabored respiratory effort. Clear to auscultation bilaterally. No wheezes rales or rhonchi chest wall. No bruising. 6.GI: Soft, Nontender/Nondistended, No hepatosplenomegaly. No guarding or rebound. 7.MSK: Normocephalic/Atraumatic, Extremities w/o deformity or ttp No cyanosis or clubbing, Normal movement of all extremities 8.Skin: Warm, Dry. No rashes or lesions. Abrasions are noted on his right forearm, they appear well-healing. 9.Neuro: electro mechanic II-XII grossly intact. Sensation grossly intact, no focal neurologic deficits. 10.Psych: (AAO) x3. Appropriate mood and affect Course Vital Signs Vital signs: Vital Signs Temperature 35.5 C L 12/15/24 02:51 Pulse 89 12/15/24 02:51 Respiratory Rate 17 12/15/24 02:51 Blood Pressure 127/90 12/15/24 02:51 Pulse Oximetry 98 12/15/24 02:51 Temperature 35.5 C L 12/15/24 02:51 Temperature Source Tympanic 12/15/24 02:51 Pulse 89 12/15/24 02:51 Respiratory Rate 17 12/15/24 02:51 Blood Pressure 127/90 12/15/24 02:51 Blood Pressure Position Sitting 12/15/24 02:51 Pulse Oximetry 98 12/15/24 02:51 Oxygen Delivery Method Room Air 12/15/24 02:51 Oxygen Flow Rate 0 12/15/24 02:51 Pain Level 10 12/15/24 02:51 Medical Decision Making This is a 53-year-old male with past medical history of psychosis, paranoia, hepatitis C, previous IV drug use, history of herniated disc, bipolar, who presents today for suicidal ideations. Patient states that he has stopped taking his medications for the last few weeks, including his medications for his chronic back pain. He states that everything is off, I just want to , I will jump off a bridge to , I cannot take everything anymore. He does admit to hearing voices. He denies any visual hallucinations. He denies any bowel or bladder incontinence. He does admit to falling off a porch a week or 2 ago and having some chest pain since then. No other complaints. No cough, fever. Exam demonstrates mild right anterior chest wall tenderness, concern for contusion versus musculoskeletal injury. We will have mental health come and assess and evaluate the patient. Will monitor closely and reassess. Differential includes rib contusion, or fracture, pneumothorax. More concerning is the patient potential psychosis hallucinations and suicidal ideations with plan. 7:16 AM Patient has been seen and assessed by mental health. They recommend voluntary admission and are seeking placement. Chest x-ray normal. Patient's medications been started. Patient will be signed out pending placement. FINDINGS: Lungs: No focal consolidation seen. Pleural spaces: No large pleural effusion seen. Heart/Mediastinum: No cardiomegaly. Bones/joints: No acute abnormality. IMPRESSION: No acute findings to explain reported symptoms. Thank you for allowing us to participate in the care of your patient. Dictated and Authenticated by: Carleen Duran MD 12/15/2024 5:07 AM Eastern Time ([place] & [place]) Quality:SDOH Health Related Social Needs: Health related social needs transpo insecurity house/econ circumstance daily activities Health related social needs details Pt states he is having a hard time w/ getting to appointments and keeping track of meds PFSH All Active Problems (Updated 12/15/24 @ 07:18 by Dimas Mao DO) Suicidal ideations (Acute) Depression (Chronic) Calf pain (Acute) Cough (Acute) Cocaine abuse (Acute) Major depressive disorder, recurrent episode, severe (Acute) 02/19/24 [facility] note Axillary abscess (Acute) Right hip pain (Acute) Right knee pain (Acute) Methamphetamine use (Acute) 06/08/22 Per [facility]. -hb Elevated liver enzymes (Acute) Screening for hyperlipidemia (Acute) Medication side effects (Acute) Low back pain (Acute) Herniated disc (Acute) IV drug abuse (Chronic) Paranoid (Acute) Psychosis (Acute) 06/08/2022. [facility] Medical History (Updated 12/15/24 @ 07:18 by Dimas Mao DO) Anesthesia Pt. states makes sure I am strapped down when I wake up or i will rip everything out Schizoaffective disorder Bipolar disorder Hepatitis C s/p treatment with interferon Paranoid ideation ADHD Depression Anxiety Surgical History (Updated 11/06/24 @ 07:46 by Alannah Jefferson CMA) Hx of umbilical hernia repair (~11/05/24) Presence of surgical screw in left hand History of surgery on arm S/P right rotator cuff repair Family History Mother Heart disease Father Diabetes Brother Diabetes Hypertension Cancer pancreatic, liver and lung Brother Diabetes Brother Diabetes Sister Cancer pancreatic cancer Social History (Updated 05/27/24 @ 08:41 by Brant Holder MD) Smoking/Tobacco Use Status: Current-Occasional Tobacco Type: cigarettes Quit status: considering quitting Second Hand Exposure: Yes Smoking risk assessment performed?: Yes Alcohol Intake: current Alcohol Intake frequency: holidays/special occasions only Alcohol type: beer, wine and hard liquor Drug use: Rarely Substance use type: marijuana Adopted: No Household members: other Details: girlfriend Housing: house Communication Needs: Hard of Hearing Education Level: master's degree Do you need help understanding health information?: Often 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 Pets and animals: No Sexually active: Yes Do you think of yourself as: straight/heterosexual Current gender identity: male What is your relationship status?: living with partner How often do you talk on the phone with friends or family?: once per week How often do you get together with friends or relatives?: twice per week Panel score (0-1 are the most socially isolated patients): 2 What type of physical activity do you participate in: regular exercise Duration: 45-60 minutes/day Frequency: 5-6 times per week Miahela/Congregation: Hindu Special mihaela needs: No Seatbelt use: always Helmet use: Yes Drive intox or ride w/intox bus driver 

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
--- NOTE | 2024-12-15 04:29 | DI.RAD_ITS ---
Exam(s) XR PORTABLE CHEST AP EXAM: XR PORTABLE CHEST AP CLINICAL HISTORY: right chest pain after fall TECHNIQUE: 2D digital imaging was performed of the chest. One image was obtained. An AP view was obtained. COMPARISON: CR,XR XR CHEST 2V PA LATERAL from 06/04/2024 CR XR CHEST 2V PA LATERAL from 11/11/2024 FINDINGS: MEDIASTINUM: Normal. HEART: Normal. PULMONARY VASCULATURE: Normal. LUNGS: Clear. PLEURAL SPACE: No pleural effusion or pneumothorax. BONE:Within normal limits for the patient's age. There are degenerative changes seen in the shoulders bilaterally, right greater than left. OTHER FINDINGS:Normal. IMPRESSION: 1. No acute pulmonary findings. 2. The preliminary [facility] report was reviewed. DATA REPOSITORY: RADIATION DOSE DELIVERED:
[2024-12-15] MEDS: Acetaminophen 500 MG TAB 1000 MG PO ×2 (04:34→11:09)
[2024-12-15] MEDS: Ketorolac 30 MG/ML VIAL IM (04:34)
[2024-12-15] MEDS: Lidocaine 5% Patch 1 PATCH TP (04:35)
[2024-12-15] MEDS: Gabapentin 800 MG TAB PO ×2 (04:39→08:16)
--- NOTE | 2024-12-15 05:08 | DI.[facility]_ITS ---
PROCEDURE INFORMATION: Exam: XR Chest Exam date and time: 12/15/2024 4:25 AM Age: 54 years old Clinical indication: Other: Right chest pain after fall TECHNIQUE: Imaging protocol: Radiologic exam of the chest. Views: 1 view. COMPARISON: CR XR CHEST 2V PA LATERAL 11/11/2024 3:01 PM FINDINGS: Lungs: No focal consolidation seen. Pleural spaces: No large pleural effusion seen. Heart/Mediastinum: No cardiomegaly. Bones/joints: No acute abnormality. IMPRESSION: No acute findings to explain reported symptoms. Dictated and Authenticated by: Carleen Duran MD. Orderin Daylin Cochran MD
[2024-12-15] MEDS: Meloxicam 15 MG TAB 7.5 MG PO (08:14)
[2024-12-15] MEDS: Ziprasidone 20 MG CAP 40 MG PO (08:14)
--- NOTE | 2024-12-15 09:29 | CMPROGNOTE_ITS ---
Date of service: 12/15/24 Time of Service: 09:29 Care Management Progress Note Progress Note Text Progress Note Text: CM huddled with [facility] and [facility] staff surrounding [place]'s plan of care. Per report, [place] is endorsing SI and voluntarily awaiting inpatient treatment. Per [facility], he has been accepted [facility] and ED propellant charge zone assembler is coordinating transportation for today. Safety plan in place. CM will follow. Status Status: Voluntary Social Determinants of Health Screening Social Determinants of health last assessed in clinic: 12/15/24 Will the Patient Participate in the Screening?: Yes Do you worry about having a steady place to live?: no Problems where you live: no known problems In the past 12 months, have you had to go without electric, gas, oil or water in your home?: no 1. Within the past 12 months, we worried whether our food would run out before we got money to buy more.: Never true 2. Within the past 12 months, the food we bought just didn't last and we didn't have money to get more.: Never true Has lack of transportation kept you from medical appointments or from doing things needed for daily living?: yes Has anyone in your life made you feel unsafe or unsupported?: no How hard is it for you to pay for the very basics like food, housing, medical care, and heating? Would you say it is:: Somewhat hard Do you want help finding or keeping work or a job?: I do not need or want help If for any reason you need help with day-to-day activities such as bathing, preparing meals, shopping, managing finances, etc., do you get the help you need?: I could use a little more help How often do you feel lonely or isolated from those around you?: Never Do you speak a language other than Hebrew at home?: No Does the patient want assistance with any of the above?: No Health Related Social Needs Health related social needs: transportation insecurity (Z59.82), problems related to housing/economic circumstances (Z59.89) and problems with daily activities (Z73.9) Health related social needs details: Pt states he is having a hard time w/ getting to appointments and keeping track of meds
--- NOTE | 2024-12-15 09:30 | CMSP_ITS ---
Date of service: 12/15/24 Time of Service: 12:01 Care Management Safety Plan Status Status: Voluntary Reason for Wait Reason for Wait: Inpatient Admission Safety Plan Safety Plan: VOLUNTARY FOR INPATIENT PSYCHIATRIC STABILIZATION. Patient is appropriate in all interactions since arriving at [facility]; Pt has demonstrated appropriate coping and communication skills, has articulated his or her needs and concerns and is fully engaged during staff interactions. Safety plan has been established with patient, and care team, to adhere to patient goals, identify restrictions based on behavioral status, address nutrition, and determine allowed personal belongings, tools for hygiene and personal care. Determine level of activity including ambulation, level of supervision, visitors, and determine privileges based on behaviors and level of engagement by pt. VOLUNTARY SAFETY PLAN: 1. Will remain on suicide precautions, in paper clothes 2. Will remain in Zone B under direct supervision of one-on-one staff at all times provided by [employer]; [employer], GRAIN II FARMWORKER coal tower operator. 3. May have paper cups, plates, finger foods as well as a cardboard spoon with which to eat meals. 4. Follow [facility] Management of the Admitted Behavioral Health Patient policy. 5. Shower available in Zone B without restriction. 6. Personal belongings-soft items permitted at RN discretion. 7. Visitors-none at this time. 8. Activities: soft cart items approved per RN discretion. 9. Bathroom available in Zone B without restriction. 10. Phone: limited to [facility] cordless phone at RN discretion. Due to VOLUNTARY status, if patient wishes to leave [facility], staff will contact [facility] Crisis Screener ([phone]) and Yarn Texture Machine Operator ([phone]) as soon as possible. In the event of elopement, notify [facility] Police ([phone]). Patient is currently voluntarily at [facility] and seeking inpatient admission when a bed becomes available. [facility] Frontline Putty Mixer And Applier will continue seeking p lacement. Please contact the Yarn Texture Machine Operator ([phone]) and [facility] Putty Mixer And Applier ([phone]) for any needed changes in the Safety Plan. Safety plan has been provided to interdepartmental care team.
--- NOTE | 2024-12-15 09:30 | PDOC.CMSAFE ---
Date of service: 12/15/24 Time of Service: 12:01 Care Management Safety Plan Status Status: Voluntary Reason for Wait Reason for Wait: Inpatient Admission Safety Plan Safety Plan: VOLUNTARY FOR INPATIENT PSYCHIATRIC STABILIZATION. Patient is appropriate in all interactions since arriving at [facility]; Pt has demonstrated appropriate coping and communication skills, has articulated his or her needs and concerns and is fully engaged during staff interactions. Safety plan has been established with patient, and care team, to adhere to patient goals, identify restrictions based on behavioral status, address nutrition, and determine allowed personal belongings, tools for hygiene and personal care. Determine level of activity including ambulation, level of supervision, visitors, and determine privileges based on behaviors and level of engagement by pt. VOLUNTARY SAFETY PLAN: 1. Will remain on suicide precautions, in paper clothes 2. Will remain in Zone B under direct supervision of one-on-one staff at all times provided by [employer]; VARSHA, SETTER OFF crawler crane operator. 3. May have paper cups, plates, finger foods as well as a cardboard spoon with which to eat meals. 4. Follow [facility] Management of the Admitted Behavioral Health Patient policy. 5. Shower available in Zone B without restriction. 6. Personal belongings-soft items permitted at RN discretion. 7. Visitors-none at this time. 8. Activities: soft cart items approved per RN discretion. 9. Bathroom available in Zone B without restriction. 10. Phone: limited to [facility] cordless phone at RN discretion. Due to VOLUNTARY status, if patient wishes to leave [facility], staff will contact [facility] Crisis Screener ([phone]) and Technical Solutions Consultant ([phone]) as soon as possible. In the event of elopement, notify [facility] Police ([phone]). Patient is currently voluntarily at [facility] and seeking inpatient admission when a bed becomes available. [facility] Frontline Bunghole Borer will continue seeking placement. Please contact the Technical Solutions Consultant ([phone]) and [facility] Bunghole Borer ([phone]) for any needed changes in the Safety Plan. Safety plan has been provided to interdepartmental care team.
--- NOTE | 2024-12-15 11:54 | ED.PSYCHBOAR ---
Date of service: 12/15/24 Time of Service: 11:55 Psychiatric Border Handoff Update Brief Story: 54-year-old male past medical history of depression and anxiety comes in for suicidal ideations with reported hallucinations as well. Medically stable overnight no acute concerns. Status: voluntary Able to leave: would need physician/NATACHA and crisis evaluation prior to leaving Behavioral Concerns: Reported SI Potential Disposition: Pending bed search; likely [place] Barriers to Disposition: Bed search Mediation Reconciliation performed: Yes Code Status ordered: Yes Future to do Items: Follow-up bed search Discharge Plan Disposition Patient Disposition: [facility]iatric [facility] Discharge Details Clinical Impression: Depression, Suicidal ideations Primary Care Provider: Kaur Gallagher ED Provider: Naeem [facility] Meds and New Rx's Prescriptions: No Action acetaminophen 500 mg tablet 1,000 mg PO Q6H PRN bupropion HCl 300 mg tablet extended release 24 hr 300 mg PO DAILY Qty: 10 1RF Patient Comments: needs rx cyclobenzaprine 5 mg tablet 5 mg PO TID PRNQty: 15 0RF Patient Comments: pt ran out lidocaine 5 % adhesive patch,medicated 1 patch topical DAILY Qty: 15 0RF Rx Instructions: leave on most painful area for up to 12 hrs Sublocade 100 mg/0.5 mL solution, extended rel syringe 100 mg subcut QMONTH ibuprofen 800 mg tablet 800 mg PO Q8H PRN Patient Comments: TAKE ONE TABLET BY MOUTH THREE TIMES A DAY ziprasidone HCl 20 mg capsule 40 mg PO QHS Patient Comments: TAKE 2 CAPSULES BY MOUTH DAILY AT BEDTIME gabapentin 800 mg tablet 800 mg PO TID Patient Comments: TAKE 1 TABLET BY MOUTH THREE TIMES DAILY FOR PAIN OR MOOD meloxicam 7.5 mg tablet 7.5 mg PO BID Patient Comments: TAKE 1 TABLET BY MOUTH TWICE DAILY FOR PAIN omeprazole 20 mg capsule,delayed release(DR/EC) 20 mg PO DAILY Patient Comments: TAKE 1 CAPSULE BY MOUTH DAILY
[2024-12-15 12:14] LABS: Cannabinoids THC Positive (Negative)
--- NOTE | 2024-12-16 04:35 | PDOC.MHCN ---
Date of service: 12/15/24 Time of Service: 11:50 Mental Health Emergency Note Release [facility] release signed:: Yes Reason for Visit [place] is previously known to [facility] as well as this writer producer. [place] is currently at [facility] seeking voluntary inpatient treatment. In the last 2 weeks has the pt presented for ES prior to today?: Unknown Client Information Client is: Adult Outpatient Well Housed: No,status: Homeless Unstable housing Non Suicidal Self Injury Current: No History: No Safety Risk/Harm to Self or Others Current Ideation to Harm Self or Others: Yes to self. ([place] reports he is endorsing SI still but did not disclose plan or intent) Intent: no, has no intent. Plan: no.does not have a plan. History of suicide attempt: No history of suicide attempt reported Risk: Does risk to harm exist?: No Risk: N/A Duty to warn indicated: No Asssessment/Mental Status Appearance: Unremarkable Attitude: Cooperative Behavior: Unremarkable Speech: Normal Affect: Normal Mood: Stressed Thought process: Unremarkable Hallucinations: yes, Visual and Auditory Attention: Poor concentration Perception: Not impaired Orientation: Fully orientated Memory: Intact Insight: Poor Judgement: Poor Neurovegetative Symptoms Sleep: No change Appetitie: No change Interests: No change Energy: No change Libido: Not applicable Substance Use: Do you use nicotine?: No Have you used substances in the last 7 days?: No Additional Issues: Assaultive/Threatening Behavior: No Medical Concerns: No Client engaged in active self harm w/weapon: No Threatening to run away: No Child reported abuse/neglect: No Voluntarily presenting for services: Yes Domestic violence is a concern: No Extreme Psychosis or extreme behavior is present: No Impression [place] is a [age] year old male who uses he/him pronouns and is homeless in the [facility] area. [place] presents to this writer producer laying in bed four of Zone B as he is seeking voluntary inpatient treatment due to suicidal ideation as well as both auditory and visual hallucinations. This writer producer observed [place] to be sleeping upon her arrival and [place] was in and out of sleep throughout the assessment. [place] reports he is taking his medications as prescribed even though the nurse reports he is not. [place] shared that he is still wanting to end his life and still experiencing hallucinations. [place] was not overly engaged in the assessment as he reported he was tired. [place] was willing to provide a urine to the nurse so he could be accepted to [facility]. Plan/Disposition Recommended Disposition: Hospitalization facilities contacted. Plan: [place] is accepted to [facility] and transport is being arranged. Person reported agreement to plan: Yes Facilities contacted if Applicable [facility] Accepted, Accepted/transfer pending. Information Sent to [facility]: Referral and Medication Compliance, Reports/communication Outcome discussed with: ED/Personnel Final Disposition/Discharge Final accepting facility/transferred to: [facility]
== END 2024-12-15 13:05 ==
PROVIDERS: Emergency Provider General Practice; PCP Nurse Practitioner Family
DX: F32.A Depression, unspecified (principal); R45.851 Suicidal ideations; Z59.82 Transportation insecurity; Z59.89 Other problems related to housing and economic circumstances; M54.50 Low back pain, unspecified; R07.89 Other chest pain; W19.XXXA Unspecified fall, initial encounter
CPT/HCPCS: 99285 ×2; 96372; 00123; 80307; 96127; 71045; J1885

== ENCOUNTER 2024-12-22 06:30 | Emergency (ER) | payer MEDICAID, SELFPAY ==
[2024-12-22 06:28] VITALS: BP 146/110; PULSE 85; RESP 20; TEMP 36.9; O2SAT 100
--- NOTE | 2024-12-22 06:30 | DI.RAD_ITS ---
Exam(s) XR RIBS RT PA CHEST 3V EXAM: XR RIBS RT PA CHEST 3V CLINICAL HISTORY: right rib pain after fall. TECHNIQUE: 2D digital imaging was performed. COMPARISON: CR,XR XR PORTABLE CHEST AP from 12/15/2024 FINDINGS: Total five views: Right ribs-four views: There are no right rib fractures identified. Incidentally noted is significant osteoarthritic degenerative change in the ipsilateral glenohumeral joint. Chest-single view: Heart size normal mediastinum is not widened. No lung infiltrates nor pleural effusions. No pneumothorax. Few small calcified granulomas in the left lung are noted. IMPRESSION: No right rib fractures evident on these images. Advanced degenerative changes in the right shoulder-glenohumeral joint No acute pulmonary findings. DATA REPOSITORY: RADIATION DOSE DELIVERED:
--- NOTE | 2024-12-22 06:30 | DI.RAD_ITS ---
Exam(s) XR KNEE RT 3V AP,LAT,WHIT EXAM: XR KNEE RT 3V AP,LAT,WHIT CLINICAL HISTORY: fall, pain in lateral knee. TECHNIQUE: 2D digital imaging was performed. COMPARISON: No exams were available for comparison FINDINGS: 3 views No evidence of acute fracture. Minimal amount of increased joint fluid is noted. Small calcifications associated with the inferior half of the patellar ligament noted. Mild swelling of the quadriceps noted on the lateral view a questionable significance. There is no fracture of the patella. There is no significant joint space narrowing. Tibial plateau appears unremarkable. There is no Segond fragment. No osseous lesions. Bone density is age-appropriate. IMPRESSION: No acute osseous findings. Small amount of increased joint fluid. DATA REPOSITORY: RADIATION DOSE DELIVERED:
--- NOTE | 2024-12-22 06:35 | ED.GENADUL_ITS ---
Discharge Plan Discharge Details Chief Complaint: Fall/Non TraumaCriteria Clinical Impression: Acute pain of right knee Primary Care Provider: Kaur Gallagher ED Provider: Dimas Mao Home Meds and New Rx's Prescriptions: No Action acetaminophen 500 mg tablet 1,000 mg PO Q6H PRN bupropion HCl 300 mg tablet extended release 24 hr 300 mg PO DAILY Qty: 10 1RF Patient Comments: needs rx cyclobenzaprine 5 mg tablet 5 mg PO TID PRNQty: 15 0RF Patient Comments: pt ran out lidocaine 5 % adhesive patch,medicated 1 patch topical DAILY Qty: 15 0RF Rx Instructions: leave on most painful area for up to 12 hrs Sublocade 100 mg/0.5 mL solution, extended rel syringe 100 mg subcut QMONTH ibuprofen 800 mg tablet 800 mg PO Q8H PRN Patient Comments: TAKE ONE TABLET BY MOUTH THREE TIMES A DAY ziprasidone HCl 20 mg capsule 40 mg PO QHS Patient Comments: TAKE 2 CAPSULES BY MOUTH DAILY AT BEDTIME gabapentin 800 mg tablet 800 mg PO TID Patient Comments: TAKE 1 TABLET BY MOUTH THREE TIMES DAILY FOR PAIN OR MOOD meloxicam 7.5 mg tablet 7.5 mg PO BID Patient Comments: TAKE 1 TABLET BY MOUTH TWICE DAILY FOR PAIN omeprazole 20 mg capsule,delayed release(DR/EC) 20 mg PO DAILY Patient Comments: TAKE 1 CAPSULE BY MOUTH DAILY HPI General Date/Time Provider Initiated Documentation: 12/22/24 06:37 . HPI Narrative: This is a 53-year-old male with past medical history of psychosis, paranoia, hepatitis C, previous IV drug use, history of herniated disc, bipolar, who recently was sent to [facility], and just discharged within the last day or so, presents today for evaluation of right knee and chest pain after fall. Patient states that he does not have a safe place to stay, he is hearing voices, he does not feel safe in his current situation. He was walking through the parking lot and slipped and landed on his right knee and right chest. He admits to pain in those 2 areas after the fall. No loss of consciousness. He is not on any blood thinners. He contacted EMS and was brought in for further assessment. Aside for the aforementioned complaints he has no additional complaints. No numbness or tingling. He had cellulitis on his right lower extremity previously, he took the antibiotics as prescribed, and the erythema looks notably improved. Related Data Home Medications Medication Instructions Recorded Confirmed bupropion HCl 300 mg 24 hr tablet, 300 mg PO DAILY #10 tabs 02/08/24 12/15/24 extended release acetaminophen 500 mg tablet 1,000 mg PO Q6H PRN 12/15/24 cyclobenzaprine 5 mg tablet 5 mg PO TID PRN #15 tabs 0 07/22/24 12/15/24 Held on 12/15/24. Instructions: Prescription Finished lidocaine 5 % topical patch 1 patch topical DAILY #15 ea 10/03/24 12/15/24 buprenorphine 100 mg/0.5 mL 100 mg subcut QMONTH 11/0412/15/24 solution,exten.rel.subcutaneous syringe (Sublocade) ibuprofen 800 mg tablet 800 mg PO Q8H PRN 11/05/24 1 02/15/24 gabapentin 800 mg tablet 800 mg PO TID 12/15/2412/15 meloxicam 7.5 mg tablet 7.5 mg PO BID 12/15/2412/15 omeprazole 20 mg capsule,delayed 20 mg PO DAILY 12/15/24 release ziprasidone HCl 20 mg capsule 40 mg PO QHS 12/15/24 Previous Rx's Medication Instructions Recorded bupropion HCl 300 mg 24 hr tablet, 300 mg PO DAILY #10 tabs 02/08/24 extended release cyclobenzaprine 5 mg tablet 5 mg PO TID PRN #15 tabs 0 07/22/24 Held on 12/15/24. Instructions: Prescription Finished lidocaine 5 % topical patch 1 patch topical DAILY #15 ea 10/03/24 Allergies Allergy/AdvReac Type Severity Reaction Status Date / Time onion Allergy Intermediate Hives Verified 12/15/24 02:57 Sulfa (Sulfonamide Allergy Intermediate Hives Verified 12/15/24 02:57 Antibiotics) naproxen Allergy Mild Unknown Verified 12/15/24 02:57 egg AdvReac Severe Other (See Verified 12/15/24 02:57 Comment) General CHUYITA: 2 Exam Narrative Exam Narrative: 1.Const: Well-nourished, Well-developed, appearing stated age 2.Eyes: PERRL, no conjunctival injection, and symmetrical lids. 3.ENT: Atraumatic external nose and ears. Moist MM. Neck: Symmetric, trachea midline, No thyromegaly. 4.CVS: +S1/S2, Peripheral pulses 2+ and equal in all extremities. Brisk capillary refill in all extremities. 5.RESP: Unlabored respiratory effort. Clear to auscultation bilaterally. No wheezes rales or rhonchi. Minimal tenderness over the right upper ribs and clavicle. No subcutaneous crepitus. 6.GI: Soft, Nontender/Nondistended, No hepatosplenomegaly. No guarding or rebound. 7.MSK: Normocephalic. subjective tenderness in the proximal fibula and the lateral aspect of the tibia. Mild pain with movement in all directions and light palpation. Patient was not amendable to full range of motion testing or Curry's testing. 8.Skin: Warm, Dry. No rashes or lesions. 9.Neuro: plastics fabricator II-XII grossly intact. Sensation grossly intact, no focal neurologic deficits. 10.Psych: (AAO) x3. Appropriate mood and affect Medical Decision Making This is a 53-year-old male with past medical history of psychosis, paranoia, hepatitis C, previous IV drug use, history of herniated disc, bipolar, who recently was sent to [facility], and just discharged within the last day or so, presents today for evaluation of right knee and chest pain after fall. Patient states that he does not have a safe place to stay, he is hearing voices, he does not feel safe in his current situation. He was walking through the parking lot and slipped and landed on his right knee and right chest. He admits to pain in those 2 areas after the fall. No loss of consciousness. He is not on any blood thinners. He contacted EMS and was brought in for further assessment. Aside for the aforementioned complaints he has no additional complaints. No numbness or tingling. He had cellulitis on his right lower extremity previously, he took the antibiotics as prescribed, and the erythema looks notably improved. Physical exam demonstrates mild tenderness on the right knee and right rib/clavicle. No other signs of significant trauma. Previous cellulitis looks notably improved. In addition to the tenderness he does complain of continued auditory hallucinations and depression. He does not feel safe going back. We will get x-rays of the aforementioned areas, give NSAIDs and apply Lidoderm patches, we will contact mental health for additional outpatient stabilization and support. Patient will be signed out to my colleague Dr. Duarte for follow- up on imaging and mental health assessment. Quality:SDOH Health Related Social Needs: Health related social needs transpo insecurity house/e con circumstance daily activities Health related social needs details Pt states he is carter ving a hard time w/ getting to appointments and keeping track of meds PFSH All Active Problems (Updated 12/22/24 @ 06:41 by Dimas Mao DO) Acute pain of right knee (Acute) Suicidal ideations (Acute) Depression (Chronic) Calf pain (Acute) Cough (Acute) Cocaine abuse (Acute) Major depressive disorder, recurrent episode, severe (Acute) [facility] [place] [facility] Axillary abscess (Acute) Right hip pain (Acute) Right knee pain (Acute) 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 -hb Elevated liver enzymes (Acute) Screening for hyperlipidemia (Acute) Medication side effects (Acute) Low back pain (Acute) Herniated disc (Acute) IV drug abuse (Chronic) Paranoid (Acute) Psychosis (Acute) 06/08/2022. [facility] ED Medical History (Updated 12/22/24 @ 06:41 by Dimas Mao DO) Anesthesia Pt. states makes sure I am strapped down when I wake up or i will rip everything out Schizoaffective disorder Bipolar disorder Hepatitis C s/p treatment with interferon Paranoid ideation ADHD Depression Anxiety Surgical History (Updated 11/06/24 @ 07:46 by Alannah Jefferson CMA) Hx of umbilical hernia repair (~11/05/24) Presence of surgical screw in left hand History of surgery on arm S/P right rotator cuff repair Family History Mother Heart disease Father Diabetes Brother Diabetes Hypertension Cancer pancreatic, liver and lung Brother Diabetes Brother Diabetes Sister Cancer pancreatic cancer Social History (Updated 05/27/24 @ 08:41 by Brant Holder MD) Smoking/Tobacco Use Status: Current-Occasional Tobacco Type: cigarettes Quit status: considering quitting Second Hand Exposure: Yes Smoking risk assessment performed?: Yes Alcohol Intake: current Alcohol Intake frequency: holidays/special occasions only Alcohol type: beer, wine and hard liquor Drug use: Rarely Substance use type: marijuana Adopted: No Household members: other Details: girlfriend Housing: house Communication Needs: Hard of Hearing Education Level: master's degree Do you need help understanding health information?: Often 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 Pets and animals: No Sexually active: Yes Do you think of yourself as: straight/heterosexual Current gender identity: male What is your relationship status?: living with partner How often do you talk on the phone with friends or family?: once per week How often do you get together with friends or relatives?: twice per week Panel score (0-1 are the most socially isolated patients): 2 What type of physical activity do you participate in: regular exercise Duration: 45-60 minutes/day Frequency: 5-6 times per week Mihaela/Latter-Day: Latter Day Special mihaela needs: No Seatbelt use: always Helmet use: Yes Drive intox or ride w/intox [employer] 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
[2024-12-22] MEDS: Acetaminophen 500 MG TAB 1000 MG PO (06:47)
[2024-12-22] MEDS: Cyclobenzaprine 10 MG TAB PO (06:48)
[2024-12-22] MEDS: Ibuprofen 800 MG TAB PO (06:48)
[2024-12-22] MEDS: Lidocaine 5% Patch 2 PATCH TP (06:48)
--- NOTE | 2024-12-22 08:10 | DI.VRAD_ITS ---
PROCEDURE INFORMATION: Exam: XR Right Knee Exam date and time: 12/22/2024 7:14 AM Age: 54 years old Clinical indication: Other: Fall, pain in lateral knee TECHNIQUE: Imaging protocol: Radiologic exam of the right knee. Views: 3 views. COMPARISON: None provided. FINDINGS: Bones/joints: No acute fracture or dislocation is identified. Small superior patellar enthesophyte. There is no osseous erosion or cortical destruction. Soft tissues: There is mild soft tissue swelling anteriorly. IMPRESSION: 1. Mild anterior soft tissue swelling without acute fracture or dislocation identified. 2. Small superior patellar enthesophyte. Dictated and Authenticated by: Brian Suazo MD. Orderin Daylin Cochran MD
--- NOTE | 2024-12-22 08:11 | DI.VRAD_ITS ---
PROCEDURE INFORMATION: Exam: XR Right Ribs with PA Chest Exam date and time: 12/22/2024 7:07 AM Age: 54 years old Clinical indication: Other: Right rib pain after fall TECHNIQUE: Imaging protocol: Radiologic exam of the right ribs with PA chest. Views: 3 views COMPARISON: CR XR PORTABLE CHEST AP 12/15/2024 4:25 AM FINDINGS: Lungs: Unremarkable. No consolidation. Pleural spaces: Unremarkable. No pleural effusion. No pneumothorax. Heart/Mediastinum: The cardiomediastinal silhouette is fairly stable in appearance, allowing for differences in technique. Bones/joints: Degenerative changes again involve the spine and shoulders. No acute fracture of the visualized skeleton, including the right ribs, is identified. IMPRESSION: 1. No evidence for acute pulmonary disease. 2. No right rib fracture identified. Dictated and Authenticated by: Brian Suazo MD. Orderin Daylin Cochran MD
--- NOTE | 2024-12-22 10:56 | ED.PROG_ITS ---
Date of service: 12/22/24 Time of Service: 10:56 Medical Decision Making 730 --care was signed out by Dr. Mao, please see his documentation regarding initial ED presentation and course. Plan at signout was to follow-up on x-ray of the chest and right knee. 1100 --patient reassessed with crisis screener. No active suicidality or significant psychosis. Patient willing to participate in safety plan for discharge. On examination, patient does have erythema of his right lower extremity distal to the knee concerning for cellulitis. Border of erythema has been marked and there is some area where it is improved. The continues to be warm to the touch with associated swelling anteriorly. I am concerned about ongoing cellulitis. Plan will be to discharge the patient with close outpatient follow-up. He will need to be seen by his primary care physician within next couple days to reassess his cellulitis. He will follow-up with [facility] services tomorrow. Patient will be provided home medications including gabapentin and ziprasidone to bridge him today until he is able to follow-up tomorrow. Given continued cellulitis, will provide another course of antibiotics to include cephalexin and doxycycline. [facility]. He is unable to grape picker these prescriptions today and I will provide short course to bridge him. Quality:SDOH Health Related Social Needs: Health related social needs transpo insecurity house/e con circumstance daily activities Health related social needs details Pt states he is carter ving a hard time w/ getting to appointments and keeping track of meds Discharge Plan Disposition Patient Disposition: Home Condition: Stable Discharge Details Clinical Impression: Contusion of knee, right, Cellulitis of right lower extremity, Depression, Homelessness Primary Care Provider: Kaur Gallagher ED Provider: Miguel Duarte Home Meds and New Rx's Prescriptions: New cephalexin 500 mg capsule 500 mg PO QID Qty: 28 0RF doxycycline hyclate 100 mg tablet 100 mg PO BID Qty: 14 0RF Continued acetaminophen 500 mg tablet 1,000 mg PO Q6H PRN lidocaine 5 % adhesive patch,medicated 1 patch topical DAILY Qty: 15 0RF Rx Instructions: leave on most painful area for up to 12 hrs Sublocade 100 mg/0.5 mL solution, extended rel syringe 100 mg subcut QMONTH ibuprofen 800 mg tablet 800 mg PO Q8H PRN Patient Comments: TAKE ONE TABLET BY MOUTH THREE TIMES A DAY ziprasidone HCl 20 mg capsule 40 mg PO QHS Patient Comments: TAKE 2 CAPSULES BY MOUTH DAILY AT BEDTIME gabapentin 800 mg tablet 800 mg PO TID Patient Comments: TAKE 1 TABLET BY MOUTH THREE TIMES DAILY FOR PAIN OR MOOD omeprazole 20 mg capsule,delayed release(DR/EC) 20 mg PO DAILY Patient Comments: TAKE 1 CAPSULE BY MOUTH DAILY Discontinued bupropion HCl 300 mg tablet extended release 24 hr 300 mg PO DAILY Qty: 10 1RF Patient Comments: needs rx cyclobenzaprine 5 mg tablet 5 mg PO TID PRNQty: 15 0RF Patient Comments: pt ran out meloxicam 7.5 mg tablet 7.5 mg PO BID Patient Comments: TAKE 1 TABLET BY MOUTH TWICE DAILY FOR PAIN Discharge Instructions Instructions: Cephalexin, Doxycycline, Cellulitis (Skin Infection), Adult ED, Depression, Adult ED Additional Instructions: Please follow-up with your primary care physician. Call tomorrow. Please follow-up with [facility] services tomorrow as discussed and safety plan. Return to the emergency department immediately for any worsening or new concerning symptoms. Stand Alone Forms: Portal Information Referrals: [facility] [Outside] Kaur Gallagher [Primary Care Provider, Medicine] Discharge Data Discharge Date/Time-TO BE ENTERED AT DEPARTURE: 12/22/24 12:18
[2024-12-22 12:09] VITALS: BP 160/90; PULSE 78; TEMP 37.1; O2SAT 97
[2024-12-22] MEDS: Gabapentin 400 MG CAP 800 MG PO (12:09)
[2024-12-22] MEDS: Doxycycline Hyclate 100 MG, 2 CAPS/BTL PO (12:09)
[2024-12-22] MEDS: Cephalexin 500 MG CAP PO (12:09)
[2024-12-22] MEDS: Ziprasidone 20 MG CAP PO (12:09)
[2024-12-22] MEDS: Gabapentin 800 MG TAB PO (12:09)
[2024-12-22] MEDS: Cephalexin 500 MG CAP, 4 CAPS/BTL PO (12:10)
[2024-12-22] MEDS: Doxycycline Hyclate 100 MG CAP PO (12:20)
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
== END 2024-12-22 12:18 | disposition home or self-care (01) ==
PROVIDERS: Emergency Provider Student in an Organized Health Care Education/Training Program; PCP Nurse Practitioner Family
DX: S80.01XA Contusion of right knee, initial encounter (principal); L03.115 Cellulitis of right lower limb; F32.A Depression, unspecified; Z59.00 Homelessness unspecified; Z59.82 Transportation insecurity; Z59.89 Other problems related to housing and economic circumstances; W01.0XXA Fall on same level from slipping, tripping and stumbling without subsequent striking against object, initial encounter
CPT/HCPCS: 99284 ×2; 00123; 73562; 71046; 71100

== ENCOUNTER 2025-01-25 13:44 | Emergency (ER) | payer MEDICAID, SELFPAY ==
[2025-01-25 13:49] VITALS: BP 177/89; PULSE 86; RESP 20; TEMP 36.7; O2SAT 99
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
[2025-01-25] MEDS: Ibuprofen 600 MG TAB PO (14:32)
[2025-01-25] MEDS: Acetaminophen 500 MG TAB 1000 MG PO (14:33)
[2025-01-25] MEDS: Nicotine 14 MG/24 HR PATCH TD (14:35)
[2025-01-25 15:07] LABS: Abs Immature Grans 0.02 10^3/uL (0.0-0.06); HCT 41.5 % (40.0-50.0); HGB 13.8 g/dL (13.5-17.5); Immature Grans % 0.2 %; MCH 33.1 pg (27.0-33.0); MCHC 33.3 % (32.0-36.0); MCV 100 fL (80-95); MPV 9.2 fL (8.0-11.0); Platelet Count 192 10^3/uL (130-400); RBC 4.17 10^6/uL (4.36-5.78); RDW 11.5 % (11.8-14.1); RDW-SD 42.5 fL; WBC 9.16 10^3/uL (4.4-10.8)
[2025-01-25 15:20] LABS: ALT 26 U/L (10-49); AST 21 U/L (<34); Albumin 4.3 g/dL (3.2-5.0); Alkaline Phosphatase 68 U/L (46-116); Anion Gap 7.8 mmol/L (3-11); BUN 16 mg/dL (9-23); Bilirubin, Total 0.6 mg/dL (0.2-1.2); CO2 28.2 mmol/L (20.0-31.0); Calcium 9.3 mg/dL (8.3-10.6); Chloride 105 mmol/L (98-107); Glucose 116 mg/dL (74-106); Potassium 3.7 mmol/L (3.5-5.1); Sodium 141 mmol/L (136-145); Total Protein 7.3 g/dL (5.7-8.2)
[2025-01-25] MEDS: Ziprasidone 20 MG CAP PO ×2 (15:27→19:45)
[2025-01-25 15:29] LABS: D-Dimer 976 ng/mlFEU (<500)
[2025-01-25 15:39] LABS: Creatine Kinase 144 U/L (46-171)
--- NOTE | 2025-01-25 16:44 | NUR.NOTE ---
Pt came out to techs in Zone B, threatened them for not giving him 10 packs of mariangel crackers. Pt is demanding more food, did get meal on arrival and was informed he is getting his dinner meal tray when its ordered. Staff activated their alarm and reported he was swearing at them and escalating. Found pt sitting in room eating mariangel crackers and peanut butter. I reminded the patient that we are here to help him but abusive and threatening behavior toward the staff will not be tolerated. Pt responded well get me more to fucking eat then. I informed the patient his dinner tray has been ordered but aggressive behavior will not be tolerated. Pt is alert and oriented X4 and appears to have insight and comprehension. Discussed the conduct that will be tolerated here and reiterated we are here to help, we want to keep him comfortable as we can and care of his needs, but demanding things and being belligerent is not going to be tolerated. Pt acknowledged this. Pt has been demanding things since he arrivved. Demanded food, dinner, a shower on arrival. He was given wipes to clean himself until medically cleared, paper scrubs, and a meal tray shortly after arrival. Pt continued to demand snacks and drinks. Has been given several snacks and was given items for brushing his teeth. He is unhoused, and has been given both nutrition and hygiene opportunities. Kapil Chacko, IVETHN, RN Nursing Note:
--- NOTE | 2025-01-25 18:17 | PDOC.MHCN_ITS ---
Date of service: 01/25/25 Time of Service: 16:33 Mental Health Emergency Note Release [facility] release signed:: Yes Reason for Visit The client is known to [facility] and currently receives services through the adult outpatient program, however per chart review has several missed appointments. The client has been hospitalized numerous times both voluntary and Involuntary with the last time being in December of 2024 at [facility] Today the client presents to [facility] initially where this commercial underwriter and ESC Sybil assess the client and he denies SI/HI as well as intent and plan and only engages minimally with clinicians and refuses to seek a higher level of care. This afternoon the client presented to [facility] ED with SI/HI and reports auditory and visual hallucinations and is wanting to seek inpatient treatment. This commercial underwriter assesses the client via telehealth. In the last 2 weeks has the pt presented for ES prior to today?: Yes, presented at [facility] Client Information Client is: Adult Outpatient Well Housed: No,status: Homeless Stable housing Non Suicidal Self Injury Current: No History: No Safety Risk/Harm to Self or Others Current Ideation to Harm Self or Others: Yes to self. (The client reports SI with intent 11/15 and plan to jump off from a bridge) Intent: yes, has intent. Plan: yes,has a plan. History of suicide attempt: No history of suicide attempt reported CALM/Risk Level Does risk to harm exist?: yes. Access to means: No. Risk: Moderate Risk Duty to warn indicated: No Asssessment/Mental Status Appearance: Disheveled Attitude: Demanding and Hostile Behavior: Agitated Speech: Hesitant Affect: Cogruent with mood Mood: Elevated, Irritable and Angry Thought process: Circumstational Hallucinations: yes, Auditory Delusions: yes, Persectory/Paranoid Attention: Wandering and Inattention Perception: Not impaired Orientation: Fully orientated Memory: Intact Insight: Poor Judgement: Poor Neurovegetative Symptoms Sleep: No change Appetitie: No change Interests: No change Energy: No change Libido: Not applicable Substance Use: Do you use nicotine?: No Have you used substances in the last 7 days?: yes, The client reports that they used crack cocaine today. Additional Issues: Assaultive/Threatening Behavior: No Medical Concerns: No Client engaged in active self harm w/weapon: No Threatening to run away: No Child reported abuse/neglect: No Voluntarily presenting for services: Yes Domestic violence is a concern: No Extreme Psychosis or extreme behavior is present: No Impression The client is a 54 year old caucasion male that is currently unhoused, but is staying in the [facility]. The client is currently unemployed. The client identifies as male and uses he/ him pronouns. Screening tools were not completed besides the CSSRS due to the client refusing, however all under represented categories are honored during the assessment. The client engages in the assessment, however is very short with answering questions and is guarded and appears to be heightened and agitated at times as he is raising his voice. Client reports experiencing auditory hallucinations, indicating he hears voices that tell that he is no good, things are not going to get better and tell him to end his life. Additionally, the client mentions hearing conversations from individuals who are not present, suggesting a significant level of distress. His statements indicate active suicidal ideations with a reported intent rated at 10/10, coupled with a specific plan to jump off from a bridge if he were to be released from the hospital. The client reports to this commercial underwriter that he used crack cocaine today and also reports that he has not been taking his prescribed medications, however is unable to provide a timeline as to how long he has not been taking his medications. Plan/Disposition Recommended Disposition: Hospitalization No. Plan: The client will remain at [facility] ED seeking voluntary placement. Referrals will be faxed to , [facility], , and [facility] transfer station. The client will be re-assessed daily until placement is secured. Person reported agreement to plan: Yes Reports/communication Outcome discussed with: ED/Personnel (Verbal report given to [facility] ED provider Dr. Smith)
[2025-01-26] MEDS: Gabapentin 400 MG CAP 800 MG PO ×3 (07:18→19:58)
[2025-01-26] MEDS: Acetaminophen 500 MG TAB 1000 MG PO ×3 (07:33→19:58)
--- NOTE | 2025-01-26 07:59 | ED.PSYCHBOAR ---
Date of service: 01/26/25 Time of Service: 07:59 Psychiatric Border Handoff Update Brief Story: I received signout on this patient with schizoaffective disorder in the emergency department voluntarily. Patient is taking home medications. Status: voluntary Able to leave: would need physician/NATACHA and crisis evaluation prior to leaving MDM Shift Events: No active behavioral issues on the shift. Patient signed out to Dr. Smith. Mediation Reconciliation performed: Yes Code Status ordered: Yes Diet ordered: Yes Discharge Plan Discharge Details Chief Complaint: PsychEval Clinical Impression: Schizoaffective disorder, Suicide ideation, Paranoid Primary Care Provider: Kaur Gallagher ED Provider: Jose Enrique Bradley [place] Meds and New Rx's Prescriptions: No Action acetaminophen 500 mg tablet 1,000 mg PO Q6H PRN lidocaine 5 % adhesive patch,medicated 1 patch topical DAILY Qty: 15 0RF Rx Instructions: leave on most painful area for up to 12 hrs Sublocade 100 mg/0.5 mL solution, extended rel syringe 100 mg subcut QMONTH ibuprofen 800 mg tablet 800 mg PO Q8H PRN Patient Comments: TAKE ONE TABLET BY MOUTH THREE TIMES A DAY ziprasidone HCl 20 mg capsule 40 mg PO QHS Patient Comments: TAKE 2 CAPSULES BY MOUTH DAILY AT BEDTIME gabapentin 800 mg tablet 800 mg PO TID Patient Comments: TAKE 1 TABLET BY MOUTH THREE TIMES DAILY FOR PAIN OR MOOD omeprazole 20 mg capsule,delayed release(DR/EC) 20 mg PO DAILY Patient Comments: TAKE 1 CAPSULE BY MOUTH DAILY
--- NOTE | 2025-01-26 08:44 | CMSP_ITS ---
Date of service: 01/26/25 Time of Service: 08:44 Care Management Safety Plan Status Status: Voluntary Reason for Wait Reason for Wait: Inpatient Admission Safety Plan Safety Plan: VOLUNTARY FOR INPATIENT PSYCHIATRIC STABILIZATION.? Patient is appropriate in all interactions since arriving at [facility]; Pt has demonstrated appropriate coping and communication skills, has articulated his or her needs and concerns and is fully engaged during staff interactions. Safety plan has been established with patient, and care team, to adhere to patient goals, identify restrictions based on behavioral status, address nutrition, and determine allowed personal belongings, tools for hygiene and personal care. Determine level of activity including ambulation, level of supervision, visitors, and determine privileges based on behaviors and level of engagement by pt. VOLUNTARY SAFETY PLAN: 1. Will remain on suicide precautions, in paper clothes 2. Will remain in Zone B under direct supervision of one-on-one staff at all times provided by [employer]; VARSHA, BANQUET BARTENDER project director. 3. May have paper cups, plates, finger foods as well as a cardboard spoon with which to eat meals. 4. Follow [facility] Management of the Admitted Behavioral Health Patient policy. 5. Shower available in Zone B without restriction. 6. Personal belongings-soft items permitted at RN discretion. 7. Visitors-none at this time. 8. Activities: soft cart items approved per RN discretion. 9.? Bathroom available in Zone B without restriction. 10. Phone: limited to [facility] cordless phone at RN discretion. Due to VOLUNTARY status, if patient wishes to leave [facility], staff will contact [facility] Crisis Screener ([phone]) and Investment Specialist ([phone]) as soon as possible. In the event of elopement, notify [facility] Police ([phone]). Patient is currently voluntarily at [facility] and seeking inpatient admission when a bed becomes available. [facility] Frontline Solar Installation Helper will continue seeking p lacement. Please contact the Investment Specialist ([phone]) and [facility] Solar Installation Helper ([phone]) for any needed changes in the Safety Plan. Safety plan has been provided to interdepartmental care team.
--- NOTE | 2025-01-26 08:44 | PDOC.CMSAFE ---
Date of service: 01/26/25 Time of Service: 08:44 Care Management Safety Plan Status Status: Voluntary Reason for Wait Reason for Wait: Inpatient Admission Safety Plan Safety Plan: VOLUNTARY FOR INPATIENT PSYCHIATRIC STABILIZATION.? Patient is appropriate in all interactions since arriving at [facility]; Pt has demonstrated appropriate coping and communication skills, has articulated his or her needs and concerns and is fully engaged during staff interactions. Safety plan has been established with patient, and care team, to adhere to patient goals, identify restrictions based on behavioral status, address nutrition, and determine allowed personal belongings, tools for hygiene and personal care. Determine level of activity including ambulation, level of supervision, visitors, and determine privileges based on behaviors and level of engagement by pt. VOLUNTARY SAFETY PLAN: 1. Will remain on suicide precautions, in paper clothes 2. Will remain in Zone B under direct supervision of one-on-one staff at all times provided by [employer]; AVRSHA, DYNAMITE PACKING MACHINE FEEDER cut press operator. 3. May have paper cups, plates, finger foods as well as a cardboard spoon with which to eat meals. 4. Follow [facility] Management of the Admitted Behavioral Health Patient policy. 5. Shower available in Zone B without restriction. 6. Personal belongings-soft items permitted at RN discretion. 7. Visitors-none at this time. 8. Activities: soft cart items approved per RN discretion. 9.? Bathroom available in Zone B without restriction. 10. Phone: limited to [facility] cordless phone at RN discretion. Due to VOLUNTARY status, if patient wishes to leave [facility], staff will contact [facility] Crisis Screener ([phone]) and Filament Shaper ([phone]) as soon as possible. In the event of elopement, notify [facility] Police ([phone]). Patient is currently voluntarily at [facility] and seeking inpatient admission when a bed becomes available. [facility] Front[facility] Health Center Assistant will continue seeking placement. Please contact the Filament Shaper ([phone]) and [facility] Health Center Assistant ([phone]) for any needed changes in the Safety Plan. Safety plan has been provided to interdepartmental care team.
[2025-01-26] MEDS: Ibuprofen 600 MG TAB PO ×2 (08:50→19:59)
[2025-01-26] MEDS: Nicotine 14 MG/24 HR PATCH TD (10:22)
[2025-01-26] MEDS: Diclofenac 1% Gel 100 GM TUBE TP ×3 (10:35→19:59)
--- NOTE | 2025-01-26 11:18 | PDOC.MHPN2 ---
Date of service: 01/26/25 Time of Service: 10:45 Mental Health Emergency Note Release [facility] release signed:: Yes Reason for Visit The client is known to [facility] and currently receives services through the adult outpatient program, however per chart review has several missed appointments. The client has been hospitalized numerous times both voluntary and Involuntary with the last time being in December of 2024 at [facility]. Yesterday afternoon the client presented to [facility] ED with auditory hallucinations as well as SI and is currently seeking voluntary treatment. This parts data writer assesses the client via telehealth for re-assessment. In the last 2 weeks has the pt presented for ES prior to today?: No Client Information Client is: Adult Outpatient CALM/Risk Level Does risk to harm exist?: yes. Access to means: No. Impression The client is a 54 year old caucasion male that is currently unhoused, but is staying in the [facility]. The client is currently unemployed. The client identifies as male and uses he/ him pronouns. Screening tools were not completed besides the CSSRS due to the client refusing, however all under represented categories are honored during the assessment. The client engages in the assessment, however is very short with answering questions and is guarded and appears to be heightened and agitated at times as he is raising his voice. The client reports that he is not doing any better today than he was yesterday. The client is continuing to endorse suicidal ideations with plan to jump off from a bridge if he were to be released from the hospital. The client states: I can't leave here today, if I do I will fuckin . Per report of the hospital staff the client has been very demanding and rude to staff, demanding food in excess. Plan/Disposition Recommended Disposition: Hospitalization facilities contacted. Plan: The client will remain at [facility] ED seeking voluntary placement. Referrals will be faxed to , [facility], , and [facility] transfer station. The client will be re-assessed daily until placement is secured. Person reported agreement to plan: Yes Reports/communication Outcome discussed with: ED/Personnel (Verbal given to [facility] staff)
[2025-01-26 11:21] LABS: Glucose Negative (Negative)
[2025-01-26 12:28] LABS: Cannabinoids THC Positive (Negative)
--- NOTE | 2025-01-26 16:49 | CMPROGNOTE_ITS ---
Date of service: 01/26/25 Time of Service: 16:50 Care Management Progress Note Progress Note Text Progress Note Text: CM huddled with ED RN, VARSHA and [facility] clinician (over the phone) to discuss [place]'s plan of care. Per [facility], [place] is reporting 11/15 SI if he was to leave here today, and his stated plan is to jump off the [facility] bridge. Per RN, [place] has been verbally aggressive with staff today, and is demanding food in excess. CM discussed setting healthy and appropriate limits with food, including regular meal trays (not excess amounts of food), and a snack between meals. Per report, although [place] has been loud and verbally aggressive, he does respond well to limit setting and redirection. [place] is currently voluntary, seeking inpatient psychiatric care. Referrals were sent to facilities by [facility]; per report, [facility] has declined due to acuity. Safety plan in place; CM will continue to follow. Social Determinants of Health Screening Social Determinants of health last assessed in clinic: 01/26/25 Will the Patient Participate in the Screening?: Yes Do you worry about having a steady place to live?: yes What is your living situation today?: I do not have steady housing Problems where you live: lack of heat and other In the past 12 months, have you had to go without electric, gas, oil or water in your home?: yes 1. Within the past 12 months, we worried whether our food would run out before we got money to buy more.: Often true 2. Within the past 12 months, the food we bought just didn't last and we didn't have money to get more.: Often true Has lack of transportation kept you from medical appointments or from doing things needed for daily living?: yes Has anyone in your life made you feel unsafe or unsupported?: no How hard is it for you to pay for the very basics like food, housing, medical care, and heating? Would you say it is:: Very hard Do you want help finding or keeping work or a job?: I do not need or want help If for any reason you need help with day-to-day activities such as bathing, preparing meals, shopping, managing finances, etc., do you get the help you need?: I don?t need any help How often do you feel lonely or isolated from those around you?: Sometimes Do you speak a language other than Kazakh at home?: Yes Does the patient want assistance with any of the above?: No Comments: Has been in contact with 211. Health Related Social Needs Health related social needs: inadequate housing (Z59.1), housing instability, housed, with risk of homelessness (Z59.811), food insecurity (Z59.41), transportation insecurity (Z59.82), material hardship(utilities) (Z59.12), problems related to housing/economic circumstances (Z59.89), feeling lonely/isolated (Z60.8) and education (Z55.6) Health related social needs details: Has not been taking meds. Reports has access to them, has them, just didn't think they were needed.
[2025-01-26 19:43] VITALS: BP 161/104; PULSE 87; RESP 21; TEMP 36.6; O2SAT 98
[2025-01-26] MEDS: Ziprasidone 20 MG CAP PO (19:58)
[2025-01-27] MEDS: Acetaminophen 500 MG TAB 1000 MG PO ×3 (00:32→15:37)
[2025-01-27] MEDS: Ibuprofen 600 MG TAB PO ×3 (06:10→21:38)
--- NOTE | 2025-01-27 08:15 | CMSP_ITS ---
Date of service: 01/27/25 Time of Service: 08:15 Care Management Safety Plan Status Status: Voluntary Reason for Wait Reason for Wait: Inpatient Admission Safety Plan Safety Plan: VOLUNTARY FOR INPATIENT PSYCHIATRIC STABILIZATION.? Patient is appropriate in all interactions since arriving at [facility]; Pt has demonstrated appropriate coping and communication skills, has articulated his or her needs and concerns and is fully engaged during staff interactions. Safety plan has been established with patient, and care team, to adhere to patient goals, identify restrictions based on behavioral status, address nutrition, and determine allowed personal belongings, tools for hygiene and personal care. Determine level of activity including ambulation, level of supervision, visitors, and determine privileges based on behaviors and level of engagement by pt. VOLUNTARY SAFETY PLAN: 1. Will remain on suicide precautions, in paper clothes 2. Will remain in Zone B under direct supervision of one-on-one staff at all times provided by [employer]; VARSHA, COLLEGE HIRE homogenizer operator. 3. May have paper cups, plates, finger foods as well as a cardboard spoon with which to eat meals. 4. Follow [facility] Management of the Admitted Behavioral Health Patient policy. 5. Shower available in Zone B without restriction. 6. Personal belongings-soft items permitted at RN discretion. 7. Visitors-none at this time. 8. Activities: soft cart items approved per RN discretion. 9.? Bathroom available in Zone B without restriction. 10. Phone: limited to [facility] cordless phone at RN discretion. Due to VOLUNTARY status, if patient wishes to leave [facility], staff will contact [facility] Crisis Screener ([phone]) and Manager Sharepoint ([phone]) as soon as possible. In the event of elopement, notify [facility] Police ([phone]). Patient is currently voluntarily at [facility] and seeking inpatient admission when a bed becomes available. [facility] Frontline Construction Project Mgr will continue seeking plac ement. Please contact the Manager Sharepoint ([phone]) and [facility] Construction Project Mgr ([phone]) for any needed changes in the Safety Plan. Safety plan has been provided to interdepartmental care team.
--- NOTE | 2025-01-27 08:15 | PDOC.CMPRO ---
Social Determinants of Health Screening Social Determinants of health last assessed in clinic: 01/26/25 Will the Patient Participate in the Screening?: Yes Do you worry about having a steady place to live?: yes What is your living situation today?: I do not have steady housing Problems where you live: lack of heat and other In the past 12 months, have you had to go without electric, gas, oil or water in your home?: yes Has lack of transportation kept you from medical appointments or from doing things needed for daily living?: yes Has anyone in your life made you feel unsafe or unsupported?: no How hard is it for you to pay for the very basics like food, housing, medical care, and heating? Would you say it is:: Very hard Do you want help finding or keeping work or a job?: I do not need or want help If for any reason you need help with day-to-day activities such as bathing, preparing meals, shopping, managing finances, etc., do you get the help you need?: I don?t need any help How often do you feel lonely or isolated from those around you?: Sometimes Do you speak a language other than Mozambican at home?: Yes Does the patient want assistance with any of the above?: No Comments: Has been in contact with 211. Health Related Social Needs Health related social needs: inadequate housing (Z59.1), housing instability, housed, with risk of homelessness (Z59.811), transportation insecurity (Z59.82), material hardship(utilities) (Z59.12), problems related to housing/economic circumstances (Z59.89), feeling lonely/isolated (Z60.8) and education (Z55.6) Health related social needs details: Has not been taking meds. Reports has access to them, has them, just didn't think they were needed.
--- NOTE | 2025-01-27 08:15 | PDOC.CMSAFE ---
Date of service: 01/27/25 Time of Service: 08:15 Care Management Safety Plan Status Status: Voluntary Reason for Wait Reason for Wait: Inpatient Admission Safety Plan Safety Plan: VOLUNTARY FOR INPATIENT PSYCHIATRIC STABILIZATION.? Patient is appropriate in all interactions since arriving at [facility]; Pt has demonstrated appropriate coping and communication skills, has articulated his or her needs and concerns and is fully engaged during staff interactions. Safety plan has been established with patient, and care team, to adhere to patient goals, identify restrictions based on behavioral status, address nutrition, and determine allowed personal belongings, tools for hygiene and personal care. Determine level of activity including ambulation, level of supervision, visitors, and determine privileges based on behaviors and level of engagement by pt. VOLUNTARY SAFETY PLAN: 1. Will remain on suicide precautions, in paper clothes 2. Will remain in Zone B under direct supervision of one-on-one staff at all times provided by [employer]; VARSHA, MICROSOFT DEVELOPER spray dry operator. 3. May have paper cups, plates, finger foods as well as a cardboard spoon with which to eat meals. 4. Follow [facility] Management of the Admitted Behavioral Health Patient policy. 5. Shower available in Zone B without restriction. 6. Personal belongings-soft items permitted at RN discretion. 7. Visitors-none at this time. 8. Activities: soft cart items approved per RN discretion. 9.? Bathroom available in Zone B without restriction. 10. Phone: limited to [facility] cordless phone at RN discretion. Due to VOLUNTARY status, if patient wishes to leave [facility], staff will contact [facility] Crisis Screener ([phone]) and Direct Mail Coordinator ([phone]) as soon as possible. In the event of elopement, notify [facility] Police ([phone]). Patient is currently voluntarily at [facility] and seeking inpatient admission when a bed becomes available. [facility] Frontline Photographic Hand Developer will continue seeking placement. Please contact the Direct Mail Coordinator ([phone]) and [facility] Photographic Hand Developer ([phone]) for any needed changes in the Safety Plan. Safety plan has been provided to interdepartmental care team.
[2025-01-27] MEDS: Gabapentin 400 MG CAP 800 MG PO ×3 (08:34→19:20)
[2025-01-27] MEDS: Nicotine 14 MG/24 HR PATCH TD (08:36)
[2025-01-27] MEDS: Diclofenac 1% Gel 100 GM TUBE TP ×3 (08:37→19:21)
--- NOTE | 2025-01-27 13:25 | NUR.NOTE ---
Nursing Note: pt asked if staff could help him shave his face. This Rn assisted pt with shaving keys with safety electric razor.
--- NOTE | 2025-01-27 15:16 | PDOC.MHPN2 ---
Date of service: 01/27/25 Time of Service: 09:40 Mental Health Emergency Note Release [facility] release signed:: Yes Reason for Visit Mr Monet is a 54 year old single male who is currently unhoused. The client reports that he is feeling depressed and suicidal. The client stated he did not know when asked if he had a plan. The client was hostile with this clinician and responded with that is not your concern. When this clinician attempted to engage the client in reassessment questions. The client asked for a [facility] referral and when this clinician informed him he could not send a referral the client became verbally hostile. The client is still waiting for voluntary placement at [facility]. In the last 2 weeks has the pt presented for ES prior to today?: No CALM/Risk Level Does risk to harm exist?: No Asssessment/Mental Status Appearance: Unremarkable Attitude: Hostile Behavior: Unremarkable Speech: Hesitant Affect: Normal Mood: Expansive Thought process: Unremarkable Hallucinations: yes, (Per documentation review the client is still experiencing auditory hallucinations telling him to kill himself.) Auditory Delusions: yes, Persectory/Paranoid (The client reports that some people he [facility] are trying to kill him.) Attention: Unremarkable Perception: Not impaired Orientation: Fully orientated Memory: Intact Insight: Poor Judgement: Poor Neurovegetative Symptoms Sleep: Decrease Appetitie: No change Interests: Decrease Energy: Decrease Libido: Not applicable Additional Issues: Assaultive/Threatening Behavior: Yes Medical Concerns: No Client engaged in active self harm w/weapon: No Threatening to run away: No Child reported abuse/neglect: No Voluntarily presenting for services: Yes Domestic violence is a concern: No Plan/Disposition Recommended Disposition: Hospitalization facilities contacted. Plan: The client is waiting for voluntary placement at [facility]. Reports/communication Outcome discussed with: ED/Personnel
--- NOTE | 2025-01-27 15:37 | ED.PROG1_ITS ---
Date of service: 01/27/25 Time of Service: 15:37 Psychiatric Border Handoff Update Brief Story: Care was signed out by Dr. Mao, please see his documentation and prior documentation regarding course. Briefly, patient is a 54-year-old male here voluntarily with suicidal and homicidal thoughts. Patient has a history of schizoaffective disorder. Patient does note active hallucinations. Noncompliance with prescribed medications. Status: voluntary Able to leave: would need physician/NATACHA and crisis evaluation prior to leaving Potential Disposition: None Medical Concerns: None Mediation Reconciliation performed: Yes Code Status ordered: Yes Diet ordered: Yes Discharge Plan Discharge Details Chief Complaint: PsychEval Clinical Impression: Schizoaffective disorder, Suicide ideation, Paranoid Primary Care Provider: Kaur Gallagher ED Provider: Miguel Daurte [place] Meds and New Rx's Prescriptions: No Action acetaminophen 500 mg tablet 1,000 mg PO Q6H PRN lidocaine 5 % adhesive patch,medicated 1 patch topical DAILY Qty: 15 0RF Rx Instructions: leave on most painful area for up to 12 hrs Sublocade 100 mg/0.5 mL solution, extended rel syringe 100 mg subcut QMONTH ibuprofen 800 mg tablet 800 mg PO Q8H PRN Patient Comments: TAKE ONE TABLET BY MOUTH THREE TIMES A DAY ziprasidone HCl 20 mg capsule 40 mg PO QHS Patient Comments: TAKE 2 CAPSULES BY MOUTH DAILY AT BEDTIME gabapentin 800 mg tablet 800 mg PO TID Patient Comments: TAKE 1 TABLET BY MOUTH THREE TIMES DAILY FOR PAIN OR MOOD omeprazole 20 mg capsule,delayed release(DR/EC) 20 mg PO DAILY Patient Comments: TAKE 1 CAPSULE BY MOUTH DAILY
--- NOTE | 2025-01-27 17:53 | PDOC.CMPRO ---
Date of service: 01/27/25 Time of Service: 17:53 Care Management Progress Note Progress Note Text Progress Note Text: CM huddled with [facility] and [facility] staff to discuss [place]'s plan of care. Per report, [place] has been appropriate with staff, although he was noted to be grumpy earlier. [facility] clinician Per stated that [place] continues to feel depressed and suicidal, but he does not have a plan to end his life. Per stated that he does not meet criteria for an involuntary hold at this time. CM spoke to his [facility] family caseworker, Cecilia Karen ([phone]), who stated that [place] recently became eligible for disability, so he now has an income. He has been working with Kim from [facility] on housing, and recently was close to obtaining an apartment, but he did not show up to sign papers, therefore he was not able to secure the apt; he remains unhoused in the community. Cecilia and Kim have been holding weekly meetings with [place], but he does not always make the appt's. He has a family caseworker and therapist with [facility]; unclear if he has been going to appt's with them. [place] is currently voluntary, seeking inpatient psychiatric treatment. Referrals are pending; [facility] has declined due to acuity. [facility] are still reviewing. Per stated that [place] prefers not to go to or [facility], and is unsure if he will accept a bed once it becomes available. CM requested that [facility] ES be present when a bed offer is made vs when transport arrives to support the process of him choosing to go to a facility or safety plan to the community. If he returns to the community with a safety plan in place, he will need to reach out to [facility] (daytime)/211 (after hours). Per Cecilia, he will qualify for a hotel voucher, although he may not be allowed to stay at a local motel; available options will be provided by [facility]. Safety plan in place while he waits for inpatient care. CM will continue to follow. Social Determinants of Health Screening Social Determinants of health last assessed in clinic: 01/27/25 Will the Patient Participate in the Screening?: Yes Do you worry about having a steady place to live?: yes What is your living situation today?: I do not have steady housing Problems where you live: lack of heat and other In the past 12 months, have you had to go without electric, gas, oil or water in your home?: yes 1. Within the past 12 months, we worried whether our food would run out before we got money to buy more.: Often true 2. Within the past 12 months, the food we bought just didn't last and we didn't have money to get more.: Often true Has lack of transportation kept you from medical appointments or from doing things needed for daily living?: yes Has anyone in your life made you feel unsafe or unsupported?: no How hard is it for you to pay for the very basics like food, housing, medical care, and heating? Would you say it is:: Very hard Do you want help finding or keeping work or a job?: I do not need or want help If for any reason you need help with day-to-day activities such as bathing, preparing meals, shopping, managing finances, etc., do you get the help you need?: I don?t need any help How often do you feel lonely or isolated from those around you?: Sometimes Do you speak a language other than Ukrainian at home?: Yes Does the patient want assistance with any of the above?: No Comments: Has been in contact with 211. Health Related Social Needs Health related social needs: inadequate housing (Z59.1), housing instability, housed, with risk of homelessness (Z59.811), food insecurity (Z59.41), transportation insecurity (Z59.82), material hardship(utilities) (Z59.12), problems related to housing/economic circumstances (Z59.89), feeling lonely/isolated (Z60.8) and education (Z55.6) Health related social needs details: Has not been taking meds. Reports has access to them, has them, just didn't think they were needed.
[2025-01-27 19:13] VITALS: BP 175/93; PULSE 86; RESP 18; TEMP 36.6; O2SAT 99
[2025-01-27] MEDS: Ziprasidone 20 MG CAP PO (19:21)
[2025-01-27] MEDS: Acetaminophen 500 MG TAB PO (20:15)
[2025-01-27] MEDS: Lidocaine 5% Patch 1 PATCH TP (20:16)
[2025-01-28] MEDS: Ibuprofen 600 MG TAB PO ×2 (04:04→09:42)
[2025-01-28] MEDS: Acetaminophen 500 MG TAB PO ×3 (04:04→15:14)
[2025-01-28] MEDS: Mylanta Suspension 30 ML CUP PO (05:16)
--- NOTE | 2025-01-28 07:27 | CMSP_ITS ---
Date of service: 01/28/25 Time of Service: 07:27 Care Management Safety Plan Status Status: Voluntary Reason for Wait Reason for Wait: Inpatient Admission Safety Plan Safety Plan: VOLUNTARY FOR INPATIENT PSYCHIATRIC STABILIZATION.? Patient is appropriate in all interactions since arriving at [facility]; Pt has demonstrated appropriate coping and communication skills, has articulated his or her needs and concerns and is fully engaged during staff interactions. Safety plan has been established with patient, and care team, to adhere to patient goals, identify restrictions based on behavioral status, address nutrition, and determine allowed personal belongings, tools for hygiene and personal care. Determine level of activity including ambulation, level of supervision, visitors, and determine privileges based on behaviors and level of engagement by pt. VOLUNTARY SAFETY PLAN: 1. Will remain on suicide precautions, in paper clothes 2. Will remain in Zone B under direct supervision of one-on-one staff at all times provided by [employer]; VARSHA, SATELLITE COMMUNICATIONS ENGINEER [employer]. 3. May have paper cups, plates, finger foods as well as a cardboard spoon with which to eat meals. 4. Follow [facility] Management of the Admitted Behavioral Health Patient policy. 5. Shower available in Zone B without restriction. 6. Personal belongings-soft items permitted at RN discretion. 7. Visitors-none at this time. 8. Activities: soft cart items approved per RN discretion. 9.? Bathroom available in Zone B without restriction. 10. Phone: limited to [facility] cordless phone at RN discretion. Due to VOLUNTARY status, if patient wishes to leave [facility], staff will contact [facility] Crisis Screener ([phone]) and Reservoir Engineering Advisor ([phone]) as soon as possible. In the event of elopement, notify [facility] Police ([phone]). Patient is currently voluntarily at [facility] and seeking inpatient admission when a bed becomes available. [facility] Frontline Corrugated Box Machine Operator will continue seeking plac ement. Please contact the Reservoir Engineering Advisor ([phone]) and [facility] Corrugated Box Machine Operator ([phone]) for any needed changes in the Safety Plan. Safety plan has been provided to interdepartmental care team.
--- NOTE | 2025-01-28 07:27 | PDOC.CMSAFE ---
Date of service: 01/28/25 Time of Service: 07:27 Care Management Safety Plan Status Status: Voluntary Reason for Wait Reason for Wait: Inpatient Admission Safety Plan Safety Plan: VOLUNTARY FOR INPATIENT PSYCHIATRIC STABILIZATION.? Patient is appropriate in all interactions since arriving at [facility]; Pt has demonstrated appropriate coping and communication skills, has articulated his or her needs and concerns and is fully engaged during staff interactions. Safety plan has been established with patient, and care team, to adhere to patient goals, identify restrictions based on behavioral status, address nutrition, and determine allowed personal belongings, tools for hygiene and personal care. Determine level of activity including ambulation, level of supervision, visitors, and determine privileges based on behaviors and level of engagement by pt. VOLUNTARY SAFETY PLAN: 1. Will remain on suicide precautions, in paper clothes 2. Will remain in Zone B under direct supervision of one-on-one staff at all times provided by [employer]; VARSHA, ADMINISTRATIVE ASSISTANT FRONT DESK vaudeville actor. 3. May have paper cups, plates, finger foods as well as a cardboard spoon with which to eat meals. 4. Follow [facility] Management of the Admitted Behavioral Health Patient policy. 5. Shower available in Zone B without restriction. 6. Personal belongings-soft items permitted at RN discretion. 7. Visitors-none at this time. 8. Activities: soft cart items approved per RN discretion. 9.? Bathroom available in Zone B without restriction. 10. Phone: limited to [facility] cordless phone at RN discretion. Due to VOLUNTARY status, if patient wishes to leave [facility], staff will contact [facility] Crisis Screener ([phone]) and Social Staff Worker ([phone]) as soon as possible. In the event of elopement, notify [facility] Police ([phone]). Patient is currently voluntarily at [facility] and seeking inpatient admission when a bed becomes available. [facility] Frontline Charge Lpn will continue seeking placement. Please contact the Social Staff Worker ([phone]) and [facility] Charge Lpn ([phone]) for any needed changes in the Safety Plan. Safety plan has been provided to interdepartmental care team.
--- NOTE | 2025-01-28 07:27 | PDOC.CMPRO ---
Date of service: 01/28/25 Time of Service: 15:08 Care Management Progress Note Progress Note Text Progress Note Text: CM huddled with [facility] staff, FEROZ, LAZARA RODGERS and updated housekeeping lead surrounding [place]'s plan of care. [place] been [facility] and will transport there via the game farm supervisor today, as coordinated by [facility] staff. Safety plan has been in place. CM will follow. Status Status: Voluntary Social Determinants of Health Screening Social Determinants of health last assessed in clinic: 01/28/25 Will the Patient Participate in the Screening?: Yes Do you worry about having a steady place to live?: yes What is your living situation today?: I do not have steady housing Problems where you live: lack of heat and other In the past 12 months, have you had to go without electric, gas, oil or water in your home?: yes 1. Within the past 12 months, we worried whether our food would run out before we got money to buy more.: Don't know/refused 2. Within the past 12 months, the food we bought just didn't last and we didn't have money to get more.: Don't know/refused Has lack of transportation kept you from medical appointments or from doing things needed for daily living?: yes Has anyone in your life made you feel unsafe or unsupported?: no How hard is it for you to pay for the very basics like food, housing, medical care, and heating? Would you say it is:: Very hard Do you want help finding or keeping work or a job?: I do not need or want help If for any reason you need help with day-to-day activities such as bathing, preparing meals, shopping, managing finances, etc., do you get the help you need?: I don?t need any help How often do you feel lonely or isolated from those around you?: Sometimes Do you speak a language other than Portuguese at home?: Yes Does the patient want assistance with any of the above?: No Comments: Has been in contact with 211. Health Related Social Needs Health related social needs: inadequate housing (Z59.1), housing instability, housed, with risk of homelessness (Z59.811), transportation insecurity (Z59.82), material hardship(utilities) (Z59.12), problems related to housing/economic circumstances (Z59.89), feeling lonely/isolated (Z60.8) and education (Z55.6) Health related social needs details: Has not been taking meds. Reports has access to them, has them, just didn't think they were needed.
--- NOTE | 2025-01-28 07:37 | ED.PSYCHBOAR ---
Date of service: 01/28/25 Time of Service: 08:59 Psychiatric Border Handoff Update Brief Story: Patient is suicidal pending voluntary placement. No active behavioral issues last shift. Status: voluntary Able to leave: would need physician/NATACHA and crisis evaluation prior to leaving MDM Shift Events: 2:23 PM I was in touch with Marita Cruz from the [facility] who graciously agreed to accept the patient for hospitalization. 4:07 PM Patient was transferred via Electric Deicer Inspector to [facility]. Mediation Reconciliation performed: Yes Code Status ordered: Yes Diet ordered: Yes Discharge Plan Disposition Patient Disposition: Psychiatric Hospital/Unit Specific Psychiatric Facility: [facility] Discharge Details Clinical Impression: Schizoaffective disorder, Suicide ideation, Paranoid Primary Care Provider: Kaur Gallagher ED Provider: Jose Enrique Bradley [place] Meds and New Rx's Prescriptions: Continued acetaminophen 500 mg tablet 1,000 mg PO Q6H PRN lidocaine 5 % adhesive patch,medicated 1 patch topical DAILY Qty: 15 0RF Rx Instructions: leave on most painful area for up to 12 hrs Sublocade 100 mg/0.5 mL solution, extended rel syringe 100 mg subcut QMONTH ibuprofen 800 mg tablet 800 mg PO Q8H PRN Patient Comments: TAKE ONE TABLET BY MOUTH THREE TIMES A DAY ziprasidone HCl 20 mg capsule 40 mg PO QHS Patient Comments: TAKE 2 CAPSULES BY MOUTH DAILY AT BEDTIME gabapentin 800 mg tablet 800 mg PO TID Patient Comments: TAKE 1 TABLET BY MOUTH THREE TIMES DAILY FOR PAIN OR MOOD omeprazole 20 mg capsule,delayed release(DR/EC) 20 mg PO DAILY Patient Comments: TAKE 1 CAPSULE BY MOUTH DAILY Discharge Instructions Additional Instructions: You are seen in the emergency department for your thoughts of being unsafe. No medications were changed. You are excepted to the [facility].
[2025-01-28 09:40] VITALS: BP 142/79; PULSE 89; TEMP 36.4; O2SAT 98
[2025-01-28] MEDS: Gabapentin 400 MG CAP 800 MG PO ×2 (09:45→14:30)
[2025-01-28] MEDS: Diclofenac 1% Gel 100 GM TUBE TP (10:45)
[2025-01-28] MEDS: Nicotine 14 MG/24 HR PATCH TD (10:45)
--- NOTE | 2025-01-28 22:31 | NUR.NOTE ---
Chart accessed to provide [facility] nurse with disposition of patient.Nursing Note:
== END 2025-01-28 15:49 ==
PROVIDERS: Emergency Medicine; Emergency Provider Emergency Medicine; PCP Nurse Practitioner Family
DX: R45.851 Suicidal ideations; R45.850 Homicidal ideations; F20.0 Paranoid schizophrenia; M54.9 Dorsalgia, unspecified; R44.0 Auditory hallucinations; F12.90 Cannabis use, unspecified, uncomplicated; Z59.41 Food insecurity; Z59.811 Housing instability, housed, with risk of homelessness; Z59.82 Transportation insecurity
CPT/HCPCS: 99285 ×2; H0046 ×3; 00123; 80053; 80307; 82550; 93971; 80320; 81003; 85025; 85379